=== PATIENT | female | born 1965 | race Caucasian/White ===

== ENCOUNTER → 2018-09-05 10:23 | Outpatient (CLI) | payer MEDICARE, SELFPAY ==
[2014-11-22 20:18] VITALS: BMI 23.4
[2018-09-05 11:14] LABS: Amphetamine Urine VISTA NEGATIVE (<1000 ng/mL); Barbiturate Urine VISTA NEGATIVE (< 200 ng/mL); Benzodiazepine Urine VISTA NEGATIVE (< 200 ng/mL); Cocaine Urine VISTA NEGATIVE (< 300 ng/mL); Ecstacy Urine VISTA NEGATIVE (< 500 ng/mL); Methadone Urine VISTA NEGATIVE (< 300 ng/mL); PCP Urine VISTA NEGATIVE (< 25 ng/mL); THC Urine VISTA NEGATIVE (< 50 ng/mL); Vista UDS pH Range 5
== END ==
PROVIDERS: Family Provider Nurse Practitioner Family; PCP Nurse Practitioner Family; Referring Provider Anesthesiology Pain Medicine; Visit Provider Anesthesiology Pain Medicine
DX: F11.20 Opioid dependence, uncomplicated (principal)
CPT/HCPCS: 80307

== ENCOUNTER → 2018-10-04 12:54 | Outpatient (CLI) | payer MEDICARE, SELFPAY ==
--- NOTE | 2018-10-04 13:05 | RAD_ITS ---
STUDY: X-RAY - CERVICAL SPINE REASON FOR EXAM: Female, 53 years old. Neck pain. TECHNIQUE: 2 view(s) of the cervical spine were obtained. COMPARISON: None FINDINGS: Normal anterior atlantoaxial articulation. Normal odontoid process. There is straightening of the normal cervical lordosis. There is mild endplate spondylosis at the level of C5-C6. Normal disc space heights. Normal visualized intervertebral neuroforamina. The soft tissue structures are unremarkable. RAD/Cerv Spine 2 or 3 Views IMPRESSION: Mild degenerative changes. Electronically Signed: Jaeln Mota MD at 9:24 EDT Tel , Service support ,
== END ==
LOC: RAD 12:56
PROVIDERS: Family Provider Nurse Practitioner Family; PCP Nurse Practitioner Family; Referring Provider Anesthesiology Pain Medicine; Visit Provider Anesthesiology Pain Medicine
DX: M54.2 Cervicalgia (principal)
CPT/HCPCS: 72040

== ENCOUNTER 2021-02-04 07:01 | Inpatient (IN) | payer MEDICARE, SELFPAY ==
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
[2021-01-26 14:36] LABS: Magnesium 1.9 mg/dL (1.6-2.6); Thyroid Stim Hormone (TSH) 0.75 uIU/mL (0.358-3.74)
[2021-02-04] VITALS (16 sets, daily range): BP systolic 83–113; BP diastolic 43–62; PULSE 54–80; RESP 15–18; TEMP 36.1–36.9; O2SAT 91–100; BMI 19.5
--- NOTE | 2021-02-04 | KNEE_PTH ---
PATIENT: TENNILLE SULLIVAN LOC: MS3 U#:[id number] AGE/SX: 56/F ROOM: [facility] [place] RE02/05/[address]: Dr. Kyle Barnes MD : 1965 BED: 1 DIS: 02/06/2021 SPEC #: [id number] RECD: 02/04/21 14:19 STATUS: HEVER RESukumar #: [id number] HAKAN: 02/04/21 00:[address]: Kyle Barnes DEPT: SURGICAL PATHOLOGY RECD BY: Atul Perez ENTERED: 02/05/21 08:15 SP TYPE: TOTAL KNEE OTHR DR: MD Dr. Chele Diana MD Kathy Seitz, LENS POLISHER-C Tissues: Knee, NOS Procedures: Decalcification bone/plaque Surgery Specimen Level IV HEADER OPERATION: ERAS, left knee replacement robotic arm assist PRE-OP DIAGNOSIS: Right knee osteoarthritis TISSUE SUBMITTED: Bone and tissue right knee MICROSCOPIC DIAGNOSIS Bone and tissue, right knee, total knee replacement/resection: Pieces of bone with degenerative osteoarthritic changes. DEISI:cecil 02/11/2021 MICROSCOPIC DESCRIPTION Slides are reviewed. GROSS DESCRIPTION Received is one container designated bone and soft tissue right knee. The specimen consists of multiple fragments of chavez-yellow bone measuring in aggregate 10 x 9 x 4 cm. No soft tissue is identified. A number of bony fragments contain articular surfaces consistent with tibial plateau and femoral condyle and displaying prominent osteophyte formation, eburnation and bone erosion. Tool Dispatcher sections are submitted in two cassettes after decalcification. / DEISI:cecil 02/05/21 TC:5 CPT: 66684, 43281
[2021-02-04] MEDS: Lactated Ringers 1,000 ML 999 ML IV ×2 (06:50→11:30)
--- NOTE | 2021-02-04 07:10 | OP.PCM_ITS ---
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 Eric size 3 triathlon total stabilized femoral component, right with 12 x 50 mm stem 2. Eric size 3 universal tibial baseplate with 12 x 50 mm stem 3. [place] X3 9 mm PS polyethylene 4. Eric X3 29 mm asymmetric patella Brief history operative indications: 56-year-old F with history of right knee osteoarthritis with radiographic find ings with loss of joint space as well as concurrent CT and MRI findings consistent with avascular necrosis of the distal femur, osteophyte formation and subchondral sclerosis. Failed conservative measures as mentioned in the H&P. Discussion of total knee arthroplasty as well as risk and benefits were discussed the patient including but not limited to blood loss, DVTs, PEs, neurovascular damage, general risk of anesthesia including loss of life, and stiffness or instability were discussed with patient. Patient demonstrated understanding and was able to sign informed consent. Procedure: On the date of procedure patient's right lower extremity was marked in the preoperative area. The patient was then taken back to the operating room where the patient was placed on the table in the supine position. All bony prominences were identified a well-padded. Anesthesia assumed control of the C-spine and airway and remained controlled throughout the remainder of the procedure. A tourniquet was placed on the right upper thigh and the leg was prepped in a sterile fashion. The surgeon then scrubbed at this time .Upon reentering the room right lower extremity was draped in a standard orthopedic fashion. A timeout was then called and everyone agreed upon the side, the site, the procedure to be performed, patient's identity and antibiotics given. Esmarch bandage was used to exsanguinate the extremity and the tourniquet was placed up to 250 mmHg with the knee in flexion. A midline skin incision was made and sharp dissection was taken down through skin subcutaneous tissue and fat. The standard medial parapatellar incision was made and the patella was subluxed laterally. An Appropriate deep MCL release was done and the fat pad was resected. Our attention was then directed to the patella. The patella was everted and a flat resection was made. The knee was then flexed up in 2 femoral pins were placed inside the incision and 2 tibial pins were placed outside the incision in the medial tibia bicortically. Once this was completed the 2 checkpoints in the femur and tibia were placed. Knee was then flexed up and the bony landmarks were registered. Once this was completed knee was taken through range of motion and manually stressed allowing us to a plan for an appropriate tibial cut. The robotic arm was brought into the field sterilely and checkpoint and saw were registered. Ba sed on the patient's deformity the tibial cut was made neutral to the tibial axis. At this time the tensioner was then placed in the joint and ligament tension was checked at 90 degrees and full extension. Based on the patient's ligamentous tension appropriate adjustments were made to the operative plan and ligament releases were done. Once we were happy with our operative plan with balanced flexion and extension gaps our attention was directed to the femur. The robot was brought into the field sterilely and registered. Posterior condylar cuts, anterior chamfer cuts and anterior cuts were appropriately made for a size 3 femur. When these were completed the saws were switched out in the distal femoral and posterior chamfer cuts were made. Protecting the soft tissue throughout this time. A size 3 tibial base plate was selected. the knee was flexed to 90 degrees and the soft tissues and posterior osteophytes were removed from the joint. 40 cc of the periarticular injection was injected into the posterior medial corner of the joint. The appropriate trials were then placed on the femur and tibia. A trial polyethylene was trialed to ensure proper balancing and stability of the knee. The appropriate tibial internal rotation was then marked with a bovie. Our attention was then directed to the patella. The lug holes were drilled and the patella trial was placed. Patellar tracking was checked and deemed appropriate. At this time once we are happy with the stability of the knee. Based on the patient's avascular process and concerning bone quality we elected to pair the bone for stem the femoral and tibial implants. Once we were happy lug holes were drilled for the femur and trial components were removed. the tibia was subluxed and pinned into place and the keel was punched and drilled appropriately for the stem. We then made the box cut for the femur and deepened it for the TS femur and then drilled for the stem. Cement restrictors were placed.. Final components were verified and opened, and cement was mixed in a vacuum. Viraliti Simplex cement was used. The wound was copiously irrigated with normal saline. When the cement was ready the components were cemented into place starting with the tibia, femur and finally cementing the patella. The trial poly component was placed and the knee was placed in full extension. All excess cement was removed in the process. Once the cement had cured the tracking, alignment and balance were verified and a size 9 mm PS polyethylene component was placed. Once the final components were placed a 3-minute dilute Betadine lavage was performed followed by an Irrisept lavage was performed and the wound was copiously irrigated with normal saline solution and the periarticular injection was given. The wound was closed in a layer galarza fashion using #1 vicryl interrupted sutures for the arthrotomy, 2-0 interrupted Vicryl suture for the subcuticular layer and samara for final skin closure. A sterile compressive dressing was then placed. The patient was then awakened from anesthesia, transferred to the [facility] and transferred to the PACU for recovery. Post op plan DVT ppx: Xarelto 10 mg daily for DVT prophylaxis secondary to aspirin allergy, thigh high compression stockings Follow up: in office in 2 weeks for wound check PT: to start POD #0 at hospital, outpatient PT should be arranged. My physician offset press assistant was a vital part of this case. He was important in appropriate retraction during the case, and protection of soft tissues during bony cuts. His intimate knowledge of the case and my steps aided in safe and expedient completion of the procedure as well as appropriate position of the leg during the case. He was also vital in assisting with closure under my direct supervision. Due to the complexity of this case robotic arm was used to assist in the surgery to improve accuracy and clinical outcomes. Complications No intraoperative complications Admit VTE Documentation VTE Present on Admission: No VTE Mechan Device Prophylaxis: SCD's and Thigh High ANNA Hose VTE Pharm Prophylaxis ordered?: Yes
[2021-02-04] MEDS: Gabapentin 600 MG Tablet PO (07:16)
[2021-02-04] MEDS: Acetaminophen 500 MG Tablet 1000 MG PO ×3 (07:19→21:26)
[2021-02-04] MEDS: Lactated Ringers 1,000 ML 75 ML IV (08:36)
[2021-02-04] MEDS: Cefazolin 2 GM in 0.9% Normal Saline 100 ML IV (08:57)
[2021-02-04 10:15] LABS: Bedside Glucose 103 mg/dL (70-110)
--- NOTE | 2021-02-04 11:10 | RAD_ITS ---
STUDY: X-RAY - RIGHT KNEE REASON FOR EXAM: Postoperative evaluation of right total knee arthroplasty. TECHNIQUE: 2 view(s) of the knee. COMPARISON: Radiographs 05/28/2015. FINDINGS: There is a right total knee arthroplasty without evidence of complication. There is postoperative gas in the soft tissues and overlying skin samara. RAD/Knee 1 or 2 Views IMPRESSION: Uncomplicated right total knee arthroplasty. Electronically Signed: Ross Parsons MD at 11:50 EDT Tel , Service support ,
[2021-02-04] MEDS: Lactated Ringers 1,000 ML 125 ML IV ×2 (12:24→13:19)
[2021-02-04] MEDS: Gabapentin 100 MG Capsule PO ×2 (13:20→21:26)
--- NOTE | 2021-02-04 14:03 | PN.HOSP_ITS ---
Subjective Subjective 56-year-old female presents to the hospital for an elective right total knee replacement secondary to osteoarthritis. No recent changes to her health, no changes were made case and Objective Data Objective Data Vital Signs: Vital Signs Temp Pulse Resp BP Pulse Ox 97.0 F L 73 18 109/55 L 95 02/04/21 13:00 02/04/21 13:00 02/04/21 13:00 02/04/21 13:00 02/04/21 13:00 Oxygen Flow Rate (L/min) 6 Oxygen Delivery Method Room Air Weight: 110 lb 3.698 oz Body Mass Index (BMI) 19.5 Intake & Output: Intake and Output for Last 24 Hours 02/03/21 02/04/21 02/05/21 03:59 03:59 03:59 Intake Total 3447.58 / 3447.58 Balance 3447.58 / 3447.58 Lab / Micro Data Labs: Laboratory Results - last 24 hr 02/04/21 06:41: POC Glucose 103 Micro: Microbiology 02/03/21 11:00 Interface Orders SARS-CoV-2 Antigen (Rapid) - Final 01/26/21 13:40 Swab (Method) Nasal Screen MRSA/MSSA - Final Radiography Diagnostic Testing: Radiology Impression Knee X-Ray 02/04/21 11:10 IMPRESSION: Uncomplicated right total knee arthroplasty. Electronically Signed: Ross Parsons MD at 11:50 EDT Tel , Service support , Physical Exam Const alert, oriented x3 and no apparent distress General Appearance: cooperative HEENT normocephalic and moist oral mucous membranes Eyes PERRL, EOMs intact bilaterally and conjunctivae normal Neck supple and no JVD Resp normal respiratory effort, normal air movement, no retractions and no use of accessory muscles Auscultation: crackles bilateral (Chronic); Negative for rales, rhonchi or wheez es Cardio regular rate, regular rhythm, S1 normal heart sound, S2 normal heart sound and no murmurs GI soft to palpation, non-tender and non-distended; Negative for hepatosplenomegaly Extremity no clubbing, cyanosis or edema Skin no rashes or lesions noted Skin Narrative: Dressing is intact Neuro no focal motor deficits and no sensory deficits noted Psych affect normal Appearance: appropriate Assessment & Plan Assessment/Plan (1) Status post total right knee replacement: PLAN: 1. Status post right total knee replacement 02/04/2021 -Pain management per primary -PT/OT -Xarelto 10 mg daily for DVT prophylaxis per primary 2. HTN/HLD -Blood pressure stable -Continue with her home blood pressure medication -Continue with statin 3. Hypothyroidism -Stable -Continue with Synthroid 4. Chronic pain with polymyositis and scleroderma/anxiety/depression/restless leg syndrome -Continue with her prednisone as well as her pain medication -Continue with gabapentin and baclofen -Continue with Zoloft and trazodone DVT: Xarelto Charges/Coding Visit Charges OBSV E&M: 91752 Subsequent observation care L2
--- NOTE | 2021-02-04 15:49 | CASEMGMT ---
LW/POA not on file, as per nursing assessment, pt does not have LW/POA and declined any additional information. WHIT Marks
[2021-02-04] MEDS: Cefazolin 1 GM/50 ML BAG IV (17:14)
[2021-02-04] MEDS: Senna/Docusate Sodium 1 Tablet 2 TABLET PO (21:26)
[2021-02-04] MEDS: Sertraline 50 MG Tablet PO (21:26)
[2021-02-04] MEDS: Pramipexole Di-HCl 0.25 MG Tablet PO (21:26)
[2021-02-04] MEDS: Baclofen 10 MG Tablet PO (21:30)
[2021-02-05] VITALS (12 sets, daily range): BP systolic 89–114; BP diastolic 42–74; PULSE 66–96; RESP 15–22; TEMP 36.4–37.1; O2SAT 86–100
[2021-02-05] MEDS: Cefazolin 1 GM/50 ML BAG IV (01:02)
[2021-02-05] MEDS: Levothyroxine 100 MCG Tablet PO (05:30)
[2021-02-05] MEDS: Gabapentin 100 MG Capsule PO ×3 (05:30→21:27)
[2021-02-05] MEDS: Rivaroxaban 10 MG Tablet PO (05:31)
[2021-02-05] MEDS: Acetaminophen 500 MG Tablet 1000 MG PO ×3 (05:31→21:28)
[2021-02-05 06:53] LABS: Anion Gap 1 (5-15); BUN 12 mg/dL (7-18); BUN/Creat Ratio 52.6 RATIO (10-20); Calcium,Total 8.3 mg/dL (8.5-10.1); Chloride 103 mmol/L (98-107); Creatinine, Serum 0.23 mg/dL (0.55-1.02); EST Glomerular Filtration Rate 334 mL/min (>60); Est Glom Filt Rate - Afr Amer 405 mL/min (>60); Estimated Creatinine Clearance 213.01 ml/min; Glucose 117 mg/dL (74-106); Potassium 4.3 mmol/L (3.5-5.1); Sodium Level 139 mmol/L (136-145)
[2021-02-05 06:55] LABS: Hematocrit 27.1 % (37-47); Hemoglobin 7.9 g/dL (12.0-15.0); Mean Corp Hgb Conc 29.2 g/dL (32-36); Mean Corpuscular Volume 99.6 fL (81-99); Mean Platelet Vol. 10.9 fl (6.2-12.0); Platelet Count 179 K/mm3 (150-450); RBC Distribution Width CV 14.6 % (11.6-14.6); RBC Distribution Width SD 54.3 fl (35.1-43.9); Red Blood Count 2.72 M/mm3 (4.2-5.4); White Blood Count 5.3 K/mm3 (4.4-11.0)
[2021-02-05] MEDS: Albuterol 2.5 MG/3 ML VIAL.NEB. INHALATION ×3 (07:05→19:05)
[2021-02-05] MEDS: Budesonide Respules 0.5 MG/2 ML AMPUL.NEB. INHALATION ×2 (07:05→19:05)
[2021-02-05] MEDS: Ketorolac 15 MG/ML Vial IV ×2 (07:45→15:38)
[2021-02-05] MEDS: Ondansetron 4 MG/2 ML Vial IV (07:45)
[2021-02-05] MEDS: proMETHazine 25 MG/ML Syringe 12.5 MG IM (08:48)
--- NOTE | 2021-02-05 10:58 | PCM.PN.ORT ---
Subjective Subjective The patient was sitting in bed upon examination. Patient denies any chest pain, shortness of breath, dizziness, or calf pain. Pain is controlled on medications. No adverse overnight events. Patient was having significant amount of nausea/vomiting in which she did require Phenergan. Patient also has had some lightheadedness when she is up walking. Patient does require bilateral platform walker due to her upper extremity deformities. Patient has had some decrease hemoglobin which is currently at 7.9. Patient also had drainage over the distal pin site which the dressing had to be removed with a new dressing and compression. Objective Data Objective Data Vital Signs: Vital Signs Temp Pulse Resp BP Pulse Ox 97.5 F L 78 18 89/43 L 92 02/05/21 09:26 02/05/21 09:26 02/05/21 09:02/05/21 09:02/05/21 07:05 Oxygen Flow Rate (L/min) 1.5 Oxygen Delivery Method Room Air Weight: 50 kg Body Mass Index (BMI) 19.5 Intake & Output: Intake and Output for Last 24 Hours 02/03/21 02/04/21 02/05/21 23:59 23:59 23:59 Intake Total 4897.58 / 4897.58 710 / 710 Balance 4897.58 / 4897.58 710 / 710 Lab / Micro Data Result Diagrams: 02/05/21 06:14 02/05/21 06:14 Labs: Laboratory Results - last 24 hr 02/05/21 06:14: WBC 5.3, RBC 2.72 L, Hgb 7.9 L, Hct 27.1 L, MCV 99.6 H, MCH 29.0, MCHC 29.2 L, RDW Std Deviation 54.3 H, RDW Coeff of Himanshu 14.6, Plt Count 179, MPV 10.9 02/05/21 06:14: Sodium 139, Potassium 4.3, Chloride 103, Carbon Dioxide 35.0 H, Anion Gap 1 L, BUN 12, Creatinine 0.23 L, Estim Creat Clear Calc 213.01, Est GFR (MDRD) Af Amer 405, Est GFR (MDRD) Non-Af 334, BUN/Creatinine Ratio 52.6 H, Glucose 117 H, Calcium 8.3 L Micro: Microbiology 02/03/21 11:00 Interface Orders SARS-CoV-2 Antigen (Rapid) - Final 01/26/21 13:40 Swab (Method) Nasal Screen MRSA/MSSA - Final Radiography Diagnostic Testing: Radiology Impression Knee X-Ray 02/04/21 11:10 IMPRESSION: Uncomplicated right total knee arthroplasty. Electronically Signed: Ross Parsons MD at 11:50 EDT Tel , Service support , Physical Exam Narrative Vital signs stable and afebrile. Patient is able to plantarflex and dorsiflex actively. Sensation is intact to light touch to saphenous, sural, superficial and deep peroneal, and tibial distribution. Proximal pin site dressing and main dressing dressing is clean dry and intact. The distal pin site dressing had to be removed due to drainage. New dressing with ABD and compression will currently be used. Negative Homans bilaterally, negative signs and symptoms of DVT. Const alert, oriented x3 and no apparent distress Assessment & Plan Assessment/Plan (1) Status post total right knee replacement: PLAN: 1. S/P right total knee arthroplasty POD #1 2. Continue Pain Medications: Tylenol and oxycodone. She is followed by pain management outpatient only but we will manage pain for the first 6 weeks postoperatively. 3. DVT Prophylaxis: Patient is on Xarelto as she has an aspirin allergy. 4. PT/OT: Weightbearing as tolerated but does require bilateral platform walker which her upper extremities have been significantly affected by her underlying scleroderma. 5. H & H: 7.9/27.1, asymptomatic. Postoperative anemia secondary to acute blood loss from surgery without any intra operative complications. 6. Postoperative nausea/vomiting: Patient did not respond well to Zofran and IV Phenergan was utilized. We will continue to monitor. 7. Postoperative right knee drainage: Currently recommend compression and ABD. We will continue to monitor this over the next day. Plan to replace dressing with a OpSite once drainage has been controlled. 8. Encouraged Incentive Spirometry 7. Continue postoperative medical management per medicine 9. Disposition: Due to patient's current significant nausea/vomiting as well as her low hemoglobin and lightheadedness, we will continue to monitor her over the next day. Patient does require bilateral platform walker due to her scleroderma and upper extremities. We will repeat hemoglobin later this afternoon. We will also continue to monitor the drainage over the distal pin site incision. As patient was anticipated to be observation and only 1 night stay, due to her above complications we will require additional stay. Plan will be for possible discharge home tomorrow as long as patient is doing well and is medically stable. Case was discussed with case management/social research assistant.
--- NOTE | 2021-02-05 12:00 | CASEMGMT ---
RN ALFRED Face to Face with patient for initial transition planning/care coordination assessment. RN CM introduced self and role at [facility]. Patient lying in bed, alert and oriented. Patient willing to participate in assessment and is able to answer all questions appropriately. Care providers, pharmacy, and demographics verified. Patient wishes to discharge home, and would like [facility] for home therapy. Patient states she has no further needs or concerns at this time. CM to follow for discharge planning needs that may arise. PCP: Iris Henderson NP Specialists: Milton [employer] Operator Preferred Pharmacy: [facility] retail at discharge Insurance:[facility] Prescription Benefit: yes Living Will/HPOA: yes, daughter Elaine Ortiz LNOK: daughter Living Arrangements: patient lives alone with 10yo grandson, who is staying with daughter, in a duplex. Patient states her bed and bath are on second floor and she is normally able to ambulate stairs. Transportation: sister DME/HHC: Patient states she has BSC, raised toilet, lift chair, grab bars, and walker. Patient states she has previously been to [facility] and has had their HHC in the past. Patient wishes to discharge with [facility] and then transition to oupatient therapy. Disposition Plan: Patient to discharge home with HHC, family support, and follow-up plans in place. Michelle MOODY, RN, CM
--- NOTE | 2021-02-05 12:06 | CHAPLAIN ---
Type of Pastoral Visit _x__ Initial Visit ___ Follow-up Visit ___ On-call Visit ___ General Patient Visit ___ Spiritual Assessment ___ Family Conference ___ Bereavement ___ Rapid Response ___ Code Blue ___ Other (describe below) Pastoral Care Referral From _x__ Patient ___ Family ___ Nurse ___ Physician ___ Veterinary Medicine Doctor ___ Internet Site Designer ___ Other (describe below) Sacrament/Intervention _x__ Active listening ___ Anointing ___ Amish ___ Bereavement ___ Communion ___ Emily exploration ___ ___ Life review _x__ Prayer ___ Reconciliation ___ Sacrament of Sick ___ Supportive presence ___ Wedding ___ Other (describe below) Pastoral Comments
[2021-02-05] MEDS: predniSONE 1 MG Tablet 4 MG PO (13:31)
[2021-02-05] MEDS: Famotidine 20 MG Tablet PO (13:31)
--- NOTE | 2021-02-05 13:45 | PCM.PN.HOSP ---
Subjective Subjective Has some nausea and dry heaving. We will transition her medications and try her on some Phenergan this morning Objective Data Objective Data Vital Signs: Vital Signs Temp Pulse Resp BP Pulse Ox 97.5 F L 78 18 89/43 L 92 02/05/21 09:26 02/05/21 09:26 02/05/21 09:26 02/05/21 09:26 02/05/21 07:05 Oxygen Flow Rate (L/min) 1.5 Oxygen Delivery Method Room Air Weight: 110 lb 3.698 oz Body Mass Index (BMI) 19.5 Intake & Output: Intake and Output for Last 24 Hours 02/04/21 02/05/21 02/06/21 03:59 03:59 03:59 Intake Total 4947.58 / 4947.58 760 / 760 Balance 4947.58 / 4947.58 760 / 760 Lab / Micro Data Result Diagrams: 02/05/21 06:14 02/05/21 06:14 Labs: Laboratory Results - last 24 hr 02/05/21 06:14: WBC 5.3, RBC 2.72 L, Hgb 7.9 L, Hct 27.1 L, MCV 99.6 H, MCH 29.0, MCHC 29.2 L, RDW Std Deviation 54.3 H, RDW Coeff of Himanshu 14.6, Plt Count 179, MPV 10.9 02/05/21 06:14: Sodium 139, Potassium 4.3, Chloride 103, Carbon Dioxide 35.0 H, Anion Gap 1 L, BUN 12, Creatinine 0.23 L, Estim Creat Clear Calc 213.01, Est GFR (MDRD) Af Amer 405, Est GFR (MDRD) Non-Af 334, BUN/Creatinine Ratio 52.6 H, Glucose 117 H, Calcium 8.3 L Micro: Microbiology 02/03/21 11:00 Interface Orders SARS-CoV-2 Antigen (Rapid) - Final 01/26/21 13:40 Swab (Method) Nasal Screen MRSA/MSSA - Final Physical Exam Const alert, oriented x3 and no apparent distress General Appearance: cooperative HEENT normocephalic and moist oral mucous membranes Eyes PERRL, EOMs intact bilaterally and conjunctivae normal Neck supple and no JVD Resp normal respiratory effort, normal air movement, no retractions and no use of accessory muscles Auscultation: crackles bilateral (Chronic); Negative for rales, rhonchi or wheezes Cardio regular rate, regular rhythm, S1 normal heart sound, S2 normal heart sound and no murmurs GI soft to palpation, non-tender and non-distended; Negative for hepatosplenomegaly Extremity no clubbing, cyanosis or edema Skin no rashes or lesions noted Skin Narrative: Dressing is intact Neuro no focal motor deficits and no sensory deficits noted Psych affect normal Appearance: appropriate Assessment & Plan Assessment/Plan (1) Status post total right knee replacement: PLAN: 1. Status post right total knee replacement 02/04/2021/postoperative anemia -Pain management per primary -PT/OT -Xarelto 10 mg daily for DVT prophylaxis per primary -Unsure as to what her baseline is her last hemoglobin here in the hospital was in 2014. Currently at 7.9, will recheck and monitor however given her nausea as well as her anemia will likely stay for 1 more day. Recheck hemoglobin this afternoon 2. HTN/HLD -Blood pressure stable, she does appear to be low at baseline -Continue with statin 3. Hypothyroidism -Stable -Continue with Synthroid 4. Chronic pain with polymyositis and scleroderma/anxiety/depression/restless leg syndrome -Continue with her prednisone as well as her pain medication -Continue with gabapentin and baclofen -Continue with Zoloft and trazodone DVT: Xarelto Charges/Coding Visit Charges Inpatient E&M: 71991 Subs Hosp L2
--- NOTE | 2021-02-05 14:05 | CASEMGMT ---
Addendum entered by Hayden Bocanegra 02/05/21 14:31: Call received back from Cheryl @ [facility]. She is aware anticipate pt ready for discharge tomorrow. They are able to accept pt. Pt/dtr, Elaine, who is at bedside, both made aware. Original Note: JAYLA SIMON NOTE: JAYLA SIMON informed pt would like [facility] and is interested in [facility] through [facility], if they provide that service. JAYLA SIMON to room to talk w/pt. The pt states she is planning on staying w/her daughter, who lives in [place], for the next couple of weeks and would like to go with [facility] more local. Pt was provided with list of [facility] providers including quality and resource use data and consistent with the patient's preferred geographic region, medical needs, and insurance network. Pt's preferred provider is [facility]. Pt states does not feel that she needs SN or aide, just therapy. Order placed. Call placed to [facility] and VM left w/Cheryl re: referral. Awaiting return call. Melany MOODY RN, CM
--- NOTE | 2021-02-05 15:00 | NURSING ---
This RN reviewed SN charting
[2021-02-05 15:16] LABS: Hemoglobin 8.1 g/dL (12.0-15.0)
[2021-02-05] MEDS: proCHLORPERazine 10 MG/2 ML Vial IV (15:38)
[2021-02-05] MEDS: Pramipexole Di-HCl 0.25 MG Tablet PO (16:38)
--- NOTE | 2021-02-05 19:20 | CPS ---
added O2 via nasal cannula at 2 lpm
[2021-02-05] MEDS: Sertraline 50 MG Tablet PO (21:27)
[2021-02-06] MEDS: Gabapentin 100 MG Capsule PO (05:11)
[2021-02-06] MEDS: Acetaminophen 500 MG Tablet 1000 MG PO (05:11)
[2021-02-06] MEDS: Rivaroxaban 10 MG Tablet PO (05:11)
[2021-02-06] MEDS: Levothyroxine 100 MCG Tablet PO (05:11)
[2021-02-06 05:16] VITALS: BP 108/60; PULSE 85; RESP 16; TEMP 36.1; O2SAT 96
[2021-02-06 06:10] LABS: Hematocrit 28.4 % (37-47); Hemoglobin 8.2 g/dL (12.0-15.0); Mean Corp Hgb Conc 28.9 g/dL (32-36); Mean Corpuscular Hgb 28.8 pg (27.0-32.0); Mean Corpuscular Volume 99.6 fL (81-99); Platelet Count 165 K/mm3 (150-450); RBC Distribution Width CV 14.4 % (11.6-14.6); RBC Distribution Width SD 52.7 fl (35.1-43.9); Red Blood Count 2.85 M/mm3 (4.2-5.4); White Blood Count 4.8 K/mm3 (4.4-11.0)
[2021-02-06] MEDS: Albuterol 2.5 MG/3 ML VIAL.NEB. INHALATION (06:50)
[2021-02-06 06:51] VITALS: PULSE 67; RESP 18; O2SAT 70
[2021-02-06] MEDS: Budesonide Respules 0.5 MG/2 ML AMPUL.NEB. INHALATION (06:51)
[2021-02-06 06:55] VITALS: O2SAT 99
--- NOTE | 2021-02-06 07:09 | PN.ORTHO_ITS ---
Subjective Subjective The patient was sitting in bed upon examination. Patient denies any chest pain, shortness of breath, dizziness, lightheadedness, nausea or vomiting, or calf pain. Pain is controlled on medications. No adverse overnight events. Patient is feeling significantly better today. She is not having the nausea or vomit ing. The lightheadedness is gone. Patient overall is doing well. She already has platform walker for bilateral upper extremity. She is working with physical therapy. Case management is involved and will be set up with home health care. Objective Data Objective Data Vital Signs: Vital Signs Temp Pulse Resp BP Pulse Ox 97 F L 85 16 108/60 96 02/06/21 05:16 02/06/21 05:16 02/06/21 05:16 02/06/21 05:16 02/06/21 05:16 Oxygen Flow Rate (L/min) 2 Oxygen Delivery Method Room Air Weight: 50 kg Body Mass Index (BMI) 19.5 Intake & Output: Intake and Output for Last 24 Hours 02/04/21 02/05/21 02/06/21 23:59 23:59 23:59 Intake Total 4897.58 / 4897.58 910 / 910 Balance 4897.58 / 4897.58 910 / 910 Medical Nutrition Assessment Dietitian: Nutrition Therapy Diagnosis Start: 02/05/21 12:30 Freq: Status: Active Protocol: Document 02/05/21 16:06 RMA (Rec: 02/05/21 16:06 RMA [id number]) Nutrition Malnutrition Evidence of Malnutrition Exists No Intake Problem Inadequate Oral Intake Etiology related to altered GI function , N/V and poor appetite Signs/Symptoms as evidenced by refusing ONS and meals at this time. Status Active Problem Recommendation Dietitian Recommendations/Changes Continue regular diet and ensure w/ medpass as tolerated . Additional ONS as appetite improves and N/V subside. Lab / Micro Data Result Diagrams: 02/06/21 05:29 02/05/21 06:14 Labs: Laboratory Results - last 24 hr 02/05/21 15:09: Hgb 8.1 L 02/06/21 05:29: WBC 4.8, RBC 2.85 L, Hgb 8.2 L, Hct 28.4 L, MCV 99.6 H, MCH 28.8, MCHC 28.9 L, RDW Std Deviation 52.7 H, RDW Coeff of Himanshu 14.4, Plt Count 165, MPV 11.0 Micro: Microbiology 02/03/21 11:00 Interface Orders SARS-CoV-2 Antigen (Rapid) - Final 01/26/21 13:40 Swab (Method) Nasal Screen MRSA/MSSA - Final Physical Exam Narrative Vital signs stable and afebrile. Patient is able to plantarflex and dorsiflex actively. Sensation is intact to light touch to saphenous, sural, superficial and deep peroneal, and tibial distribution. Dressing is clean dry and intact. Negative Homans bilaterally, negative signs and symptoms of DVT. Const alert, oriented x3 and no apparent distress Assessment & Plan Assessment/Plan (1) Status post total right knee replacement: PLAN: 1. S/P right total knee arthroplasty POD #2 2. Continue Pain Medications: Tylenol and oxycodone. She is followed by pain management outpatient only but we will manage pain for the first 6 weeks postoperatively. 3. DVT Prophylaxis: Patient is on Xarelto as she has an aspirin allergy. 4. PT/OT: Weightbearing as tolerated but does require bilateral platform walker which her upper extremities have been significantly affected by her underlying scleroderma. 5. H & H: 8.2/28.4, asymptomatic. Postoperative anemia secondary to acute blood loss from surgery without any intra operative complications. 6. Postoperative nausea/vomiting: Resolved 7. Postoperative right knee drainage: Patient does have some discharge from the distal pin site incision. Continue with compression. 8. Encouraged Incentive Spirometry 7. Continue postoperative medical management per medicine 9. Disposition: Case management has been involved and patient will get home health physical therapy for the next 2 weeks. She will be residing with her daughter. Prescriptions will be E scribed to [facility]. Patient will continue with the Xarelto for 2 weeks postoperatively as she has an aspirin allergy. I have reviewed the [place] Automated Rx Reporting System (OARRS) report for this patient for refill pattern and other prescriber involvement as part of the appro priate surveillance for the provision of acute and chronic controlled medications. The report was requested and reviewed on the date of this entry and was considered in the prescribing process.
--- NOTE | 2021-02-06 07:18 | DCINST_ITS ---
Discharge Instructions Diet Discharge Diet: No restrictions Activity Discharge Activity: May Not Drive (while taking narcotic pain medications.) May shower in (days): 1 (Please turn dressing away from water. Okay to get wet as long as dressing is intact to skin.) Ice area for (Minutes): 20 (Every 1-2 hours while awake[address] place barrier between the skin and ice pack.) Weight Bearing Status: Weight bearing as tolerated Keep extremity elevated above heart level: Operative Extremity Dressing / Incision Call your doctor if your incision/area has: Continuous Slow Oozing, Sudden Increased Bleeding, Increased Pain/ Swelling, Increased Redness and Foul Smelling Discharge Call your doctor if you observe: Fever of 101 or Higher, Coldness, Increased Pain, Numbness or Tingling, Change in Color, Shortness of breath, Chest pain, Calf discomfort and Uncontrolled pain Remove Dressing in: 3 days (Okay to remove dressings on 02/09/2021) Additional Dressing/Incision Instructions:: Follow [facility] Post-op Instructions. Once postoperative dressing has been removed only use gentle soap and water over the incision. Do not use any ointments, Neosporin, salves, alcohol pads over the incision for 6 weeks postoperatively. Do not submerge underwater for 6 weeks postoperatively. Continue with ANNA hose/elastic stockings for 2 weeks postoperatively. May remove at nighttime but needs to be placed back on the leg during the day. Do NOT use alcohol with narcotic pain medication. Do NOT make important decisions while taking narcotic medication. If you have problems with taking your medication (rash, itching, nausea, etc.) call the office at once. Follow Up Care Test Results: Test results from this visit will be discussed in further detail at your follow-up appointment, if applicable. Discharge Plan Admission Admit Date/Time: 02/05/21 09:38 Attending Provider: Kyle Barnes Primary Care Provider: Iris Henderson NP Consulting Providers: Randy Underwood ; Chele Quesada Instructions Additional Instructions / Restrictions: Patient is aware that she is not to take the Percocet that she has at home and only utilize our pain medications as instructed. Discharge Orders/Prescriptions Prescriptions: New acetaminophen 500 mg Tablet 1,000 mg PO TID Qty: 100 RF: 0 oxycodone 5 mg Tablet 5 - 10 mg PO Q4H PRN PRN (Reason: Pain Score 4-10) 4 Days Qty: 36 RF: 0 Xarelto 10 mg Tablet 10 mg PO DAILY@0600 Qty: 12 RF: 0 sennosides-docusate sodium [Stool Softener-Stimulant Laxat] 8.6-50 mg Tablet 2 tab PO BID Qty: 10 RF: 0 Continued albuterol sulfate 2.5 MG/3 ML solution for nebulization 2.5 mg inhalation Q6HWA.RT RF: 0 prednisone 5 MG tablet 4 mg PO DAILY RF: 0 albuterol sulfate [Ventolin HFA] 1 INHALER inhaler 1 - 2 puff inhalation Q6H PRN PRN (Reason: Shortness Of Breath) RF: 0 Centrum Silver 1 EACH tablet 1 ea PO DAILY RF: 0 Ropinirole Hcl [Requip] 1 MG tablet 0.5 mg PO QHS RF: 0 trazodone 50 mg Tablet 50 mg PO QHS PRN (Reason: depression) RF: 0 atorvastatin 10 mg Tablet 10 mg PO DAILY RF: 0 meloxicam 15 mg tablet 15 mg PO DAILY RF: 0 levothyroxine 100 mcg Tablet 100 mcg PO DAILY RF: 0 baclofen 10 mg tablet 10 mg PO TID PRN PRN (Reason: neck pain) RF: 0 sertraline [Zoloft] 50 mg Tablet 50 mg PO BID RF: 0 Mucinex Sinus-Max Cng-Pain(DM) 5-10-325 mg Capsule 1 cap PO DAILY RF: 0 cholecalciferol (vitamin D3) 100 mcg (4,000 unit) Capsule 100 mcg PO QODAY RF: 0 Arthrozene 1 cap PO/SL DAILY RF: 0 gabapentin 100 mg Tablet 100 mg PO TID RF: 0 Breo Ellipta 100-25 mcg/dose Blister With Device 1 inh INHALATION DAILY RF: 0 Discontinued oxycodone-acetaminophen 1 TABLET tablet 1 - 2 tab PO Q6H PRN PRN (Reason: Pain) Qty: 20 RF: 0 oxycodone-acetaminophen [Percocet] 5-325 mg Tablet 1 tab PO Q8H PRN (Reason: Pain) RF: 0 Referrals / Follow Up: Iris Henderson NP, [employer] [Primary Care Provider] - Emigdio Zepeda PA-C [PHYSICIAN AIR PRESS OPERATOR] - 02/18/21 1:45 pm Disposition Disposition (needs filled in before D/C Order can be placed): Home Health Service
[2021-02-06 09:06] VITALS: BP 115/57; PULSE 78; RESP 16; TEMP 36.4; O2SAT 96
[2021-02-06] MEDS: Multivitamins,Ther W-Minerals Tablet 1 TABLET PO (09:55)
[2021-02-06] MEDS: predniSONE 1 MG Tablet 4 MG PO (09:55)
[2021-02-06] MEDS: Meloxicam 7.5 MG Tablet PO (10:00)
[2021-02-06] MEDS: Cholecalciferol (VIT D3) 25 MCG TABLET (1,000 UNITS) 100 MCG PO (10:02)
[2021-02-06] MEDS: Sertraline 50 MG Tablet PO (10:06)
[2021-02-06] MEDS: Famotidine 20 MG Tablet PO (10:08)
[2021-02-06] MEDS: Ensure Surgery 237 ML LIQUID PO (10:09)
== END 2021-02-06 11:37 | disposition home health service (06) | DRG 470 ==
LOC: SDC 10:54 → MS3 10:54
PROVIDERS: Anesthesiology; Physician Assistant Surgical; Admitting Provider Specialist; PCP Nurse Practitioner Family; Referring Provider Specialist; Visit Provider Specialist
PROC: 0SRC0JZ Replacement of Right Knee Joint with Synthetic Substitute, Open Approach (ICD-10-PCS; CPT 27447; principal; 2021-02-04 08:15)
DX: M17.11 Unilateral primary osteoarthritis, right knee (principal); M33.20 Polymyositis, organ involvement unspecified; D62 Acute posthemorrhagic anemia; M87.9 Osteonecrosis, unspecified; T38.0X5A Adverse effect of glucocorticoids and synthetic analogues, initial encounter; S83.289A Other tear of lateral meniscus, current injury, unspecified knee, initial encounter; R42 Dizziness and giddiness; R11.2 Nausea with vomiting, unspecified; E03.9 Hypothyroidism, unspecified; E78.00 Pure hypercholesterolemia, unspecified; F32.9 Major depressive disorder, single episode, unspecified; G25.81 Restless legs syndrome; I73.00 Raynaud's syndrome without gangrene; J45.909 Unspecified asthma, uncomplicated; Z79.52 Long term (current) use of systemic steroids; M34.9 Systemic sclerosis, unspecified; Z87.442 Personal history of urinary calculi; Z96.641 Presence of right artificial hip joint; Z90.710 Acquired absence of both cervix and uterus; Z88.6 Allergy status to analgesic agent; Z88.1 Allergy status to other antibiotic agents; Z88.0 Allergy status to penicillin; Z72.0 Tobacco use
CPT/HCPCS: 36415; 73560; 80048; 82962; 83735; 84443; 85018; 85027; 87081; 87426; 88305; 88311; 94640; 94762; 97110; 97116; 97162; 97166; 97530; 97535; 99251; C1776; C9803; J7120; G0463; J2405; J3475

== ENCOUNTER 2021-02-07 19:32 | Emergency (ER) | payer MEDICARE, SELFPAY ==
[2021-02-04 13:00] VITALS: BMI 19.5
[2021-02-07] VITALS (9 sets, daily range): BP systolic 58–93; BP diastolic 39–78; PULSE 74–91; RESP 12–24; TEMP 36.2–36.5; O2SAT 92–100; BMI 21.0
--- NOTE | 2021-02-07 19:56 | CT_ITS ---
EXAMINATION : Head CT w/out contrast HISTORY : ms change COMPARISON : None. TECHNIQUE : Multiple contiguous axial images were obtained from the skull base to the vertex without intravenous contrast. A radiation dose optimization technique was used for this scan. FINDINGS : The ventricles and sulci are normal in size. There is no evidence for acute intracranial hemorrhage, mass effect, or midline shift. There is no extra-axial fluid collection. There is normal tam-white differentiation, without CT evidence of acute ischemia or infarct. The skull base and calvarium are unremarkable. The orbits are unremarkable. The paranasal sinuses are clear. The mastoid air cells are well-aerated. The soft tissues are unremarkable. CT/Brain/Head without Contrast IMPRESSION: No acute intracranial abnormality. Electronically Signed: Hiram Pereira MD at 21:44 EDT Tel , Service support ,
--- NOTE | 2021-02-07 19:56 | EKG12_ITS ---
Test Reason : WEA Blood Pressure : / mmHG Vent. Rate : 077 BPM Atrial Rate : 077 BPM P-R Int : 136 ms QRS Dur : 098 ms QT Int : 348 ms P-R-T Axes : 095 099 181 degrees QTc Int : 393 ms Somatic/Motion Artifact Normal sinus rhythm Incomplete right bundle branch block Nonspecific ST and T wave abnormality Abnormal ECG Confirmed by DOMINGA DINERO, ARMANDO ([id number]), news assignment editor DAVID LAZARO ([id number]) on 02/11/2021 9:46:11 AM Referred By: LEONIDAS Confirmed By:ARMANDO ORR MD
--- NOTE | 2021-02-07 19:58 | EX.ED.DYSGE1 ---
HPI History of Present Illness Chief Complaint: Alt LOC Informant: patient and family Onset/Context/Timing Onset: Days Context: Gradual Onset Timing: Continuous Current Severity: Moderate Maximum Severity: Severe Narrative Narrative: 56-year-old female history of polymyositis, scleroderma and osteoarthritis. Recent right knee replacement surgery on Tuesday by Dr. Juan Barnes. Patient was discharged from this hospital to home yesterday. She has had decreased oral intake. Decreased urination. And decreasing mental status. No fever. No vomiting. No diarrhea. Per the daughter no headaches or falls. Prior similar symptoms: No Recent Illness/Hospitalization: Yes [facility] Medical History Anxiety Arthritis Asthma Broken teeth Depression Difficulty swallowing High cholesterol History of amputation of finger History of CHF (congestive heart failure) History of echocardiogram History of steroid therapy History of stress test Hypoglycemia Neck pain Non-smoker Polymyositis Restless legs Restrictive lung disease Scleroderma Wears glasses Home Medications Centrum Silver 1 ea PO DAILY 09/23/13 [History Last Taken 02/04/21] Ropinirole Hcl [Requip] 0.5 mg PO QHS 09/23/13 [History Last Taken 02/04/21] albuterol sulfate 2.5 mg INHALATION Q6HWA.RT 09/23/13 [History Last Taken 02/04/21] albuterol sulfate [Ventolin HFA] 1 - 2 puff INHALATION Q6H PRN PRN 09/23/13 [History Last Taken 02/04/21] prednisone 4 mg PO DAILY 09/23/13 [History Last Taken 02/04/21] Mucinex Sinus-Max Cng-Pain(DM) 1 cap PO DAILY 01/12/21 [History Last Taken 02/04/21] atorvastatin 10 mg PO DAILY 01/12/21 [History Last Taken 02/04/21] baclofen 10 mg PO TID PRN PRN 01/12/21 [History Last Taken 02/04/21] cholecalciferol (vitamin D3) 100 mcg PO QODAY 01/12/21 [History Last Taken 02/04/21] levothyroxine 100 mcg PO DAILY 01/12/21 [History Last Taken 02/04/21] meloxicam 15 mg PO DAILY 01/12/21 [History Last Taken 01/30/21] sertraline [Zoloft] 50 mg PO BID 01/12/21 [History Last Taken 02/04/21] trazodone 50 mg PO QHS PRN 01/12/21 [History Last Taken 02/04/21] Arthrozene 1 cap PO/SL DAILY 01/28/21 [History Last Taken 02/04/21] Breo Ellipta 1 inh INHALATION DAILY 01/28/21 [History Last Taken 02/04/21] gabapentin 100 mg PO TID 01/28/21 [History Last Taken 02/04/21] acetaminophen 1,000 mg PO TID #100 tab 02/06/21 [Rx Last Taken Unknown] oxycodone 5 - 10 mg PO Q4H PRN PRN 4 Days #36 tab 02/06/21 [Rx Last Taken Unknown] rivaroxaban [Xarelto] 10 mg PO DAILY@0600 #12 tab 02/06/21 [Rx Last Taken Unknown] sennosides-docusate sodium [Stool Softener-Stimulant Laxat] 2 tab PO BID #10 tab 02/06/21 [Rx Last Taken Unknown] Allergy/AdvReac Type Severity Reaction Status Date / Time aspirin Allergy Unknown Verified 02/07/21 19:33 ceftazidime pentahydrate Allergy Hives Verified 02/07/21 19:33 [From Fortaz] clindamycin Allergy Rash Verified 02/07/21 19:33 Penicillins Allergy Hives Verified 02/07/21 19:33 povidone-iodine Allergy Itching Verified 02/07/21 19:33 [From Betadine] soap [From Betadine] Allergy Itching Verified 02/07/21 19:33 erythromycin base AdvReac Diarrhea Verified 02/07/21 19:33 [Erythromycin Base] Surgical History History of hysterectomy History of right hip replacement History of tubal ligation History of vascular surgery Status post right knee replacement Social History Smoking Status: Never smoker ROS ROS ED ROS Narrative Decreased mental status. Review of Systems ROS Unobtainable: Denies due to encephalopathy Constitutional Constitutional ED: Denies chills or fever(s) Eyes Eyes: Denies change in vision ENT ENT ED: Denies ear pain or sore throat Cardiovascular Cardiovascular: Denies chest pain Respiratory/Chest Respiratory/Chest: Denies cough or dyspnea Gastrointestinal Gastrointestinal: Denies abdominal pain, diarrhea, nausea or vomiting Genitourinary Genitourinary ED: Denies dysuria or hematuria Musculoskeletal Musculoskeletal: Reports arthralgias; Denies myalgias Integumentary Denies rash Neurologic Neurologic: Denies headache(s) Psychiatric Psychiatric: Denies depression Endocrine Endocrinology: Denies polyuria Allergic/Immunologic Allergic/Immunologic ED: Denies urticaria EXAM Physical Exam Narrative Exam Narrative: Middle-aged female hypotensive and clinically looks dehydrated. Lying in bed but responsive. Daughter present in the room. HEENT exam very dry mucous membranes. Pupils round react light. She will open her eyes. No signs of trauma to her face or scalp. Neck nontender no meningismus. No lymphadenopathy. Lungs clear to auscultation bilaterally. Heart regular rhythm rate about 75 no murmur. Chest nontender. Abdomen soft nontender normal bowel sounds no peritoneal signs. Patient moving all 4 extremities. She has had recent right knee surgery. There is bruising and mild swelling to the distal right lower leg. Neurologically she is diminished but arousable will answer questions and follow limited commands. Const Vital Signs: 02/07/21 19:34 02/07/21 19:45 02/07/21 19:51 Temperature 97.4 F L Temperature Source Temporal Pulse Rate 74 Respiratory Rate 12 17 Respiratory Effort Normal Non-Labored Respiratory Pattern Normal Blood Pressure 75/43 L 61/44 L Blood Pressure Mean 53 49 Pulse Ox 93 Oxygen Delivery Method Room Air Room Air Oxygen Flow Rate (L/min) 02/07/21 20:06 02/07/21 20:08 02/07/21 20:21 Temperature 97.1 F L Temperature Source Temporal Pulse Rate Respiratory Rate 15 Respiratory Effort Respiratory Pattern Blood Pressure Blood Pressure Mean Pulse Ox 93 92 Oxygen Delivery Method Room Air Room Air Oxygen Flow Rate (L/min) 02/07/21 20:47 02/07/21 21:00 02/07/21 22:00 Temperature 97.7 F L 97.2 F L 97.4 F L Temperature Source Temporal Temporal Temporal Pulse Rate 78 91 74 Respiratory Rate 24 H 19 H 16 Respiratory Effort Respiratory Pattern Blood Pressure 58/39 L 69/43 L 85/59 L Blood Pressure Mean 45 51 67 Pulse Ox 98 92 100 Oxygen Delivery Method Nasal Cannula Nasal Cannula Nasal Cannula Oxygen Flow Rate (L/min) 2 2 2 Positive well nourished and well developed; Negative for obese, cachectic, contractures or unkempt General Appearance ED: well developed; Negative for unkempt, cachectic or contractures Nutritional Appearance: Negative for cachectic or obese HEENT Reports dry mucous membranes Negative for trauma or tenderness Mouth ED: Yes dry mucous membranes Mouth: dry mucous membranes Eyes PERRL and EOMs intact bilaterally Neck no lymphadenopathy and supple General: Negative for tenderness Chest Wall inspection of chest normal and palpation of chest normal Resp normal respiratory effort and clear to auscultation bilaterally Effort and Inspection: Negative for pain with movement Auscultation: Negative for rales or rhonchi Cardio regular rate, regular rhythm, S1 normal heart sound, S2 normal heart sound and no murmurs GI normal to inspection, nondistended, normoactive bowel sounds, non-tender and non-distended Palpation: soft Back/Spine no CVA tenderness General Back: Negative for CVA tenderness Cervical Spine: Negative for cervical spine tenderness Thoracic Spine / Upper Back: Negative for thoracic spinal tenderness Extremity normal to inspection Extremity Narrative: Status post right knee replacement. Well-healing. Distal mild edema. Bruising. No signs of infection on the knee surgical site. No redness or discharge. Neuro Neuro Narrative: Patient lying in bed. She will open her eyes. She will follow limited commands. Sensorium / Orientation: alert Psych mental status grossly normal Appearance: Negative for unkempt Skin no rashes or lesions noted and no wounds MDM MDM MDM Narrative Medical decision making narrative: Middle-aged female recent right knee replacement surgery with decreased mental status. Clinically looks very dehydrated. She will receive IV fluids undergo a sepsis work-up. She was placed on Xarelto for a post operative orthopedic course to prevent DVT. I will obtain a CAT scan of her head. She will need to be admitted. She is hypotensive. Patient's chest x-ray is consistent with pneumonia given her current condition she is in septic shock from pneumonia. She has coagulopathy and elevated liver enzymes consistent with shock liver. Currently she has had about a liter and a half of fluid and her pressure is much improved she is currently about 95/70. She will get a another liter and a half of fluid and be reassessed. She is being started on IV Zosyn and vancomycin. She will also be given treatment for acute hyperkalemia. Her anemia is her baseline. The overnight hospitalist would prefer the patient to be transferred to a larger facility if possible.. I initially attempted [facility] who has no beds available. I have spoken to the [facility] at 10:50 PM. They are willing to accept the patient were awaiting bed assignment. While awaiting the patient will continue to get IV fluids, IV antibiotics and treatment for acute hyperkalemia. If the transfer is significantly delayed she will be admitted here to the ICU. Due to her significant coagulopathy I am holding off on central line placement at this time because we have to good peripheral lines. And she is responding to IV fluids. I would continue to give her IV fluids and see how her vital signs correlate. I discussed this all with the daughter who is comfortable with the plan at this time. Lab Data Attestation: I reviewed the patient's lab results. Lab results narrative: CBC shows white count 1.7. Hemoglobin 8.7. MCV of 101. Patient's INR is 6.4 and her PTT is 51. Lactic acid is 8.8. Electrolytes show hyperkalemia with a potassium of 6.2 which is being treated currently. BUN is 37 creatinine 1.5 consistent with dehydration. Liver enzymes are significantly elevated secondary to shock liver most likely. Labs: Laboratory Results - last 24 hr 02/07/21 02/07/21 02/07/21 19:45 19:45 20:20 WBC 11.7 H RBC 3.03 L Hgb 8.7 L Hct 30.8 L MCV 101.7 H MCH 28.7 MCHC 28.2 L RDW Std Deviation 55.0 H RDW Coeff of Himanshu 14.8 H Plt Count 248 MPV 11.5 Immature Gran % (Auto) 0.800 Neut % (Auto) 88.3 H Lymph % (Auto) 2.3 L [place] % (Auto) 8.5 Eos % (Auto) 0.0 Baso % (Auto) 0.1 Absolute Neuts (auto) 10.3 H Absolute Lymphs (auto) 0.27 L Nucleated RBC % 0.2 Differential Comment SEE COMMENT Platelet Estimate ADEQUATE RBC Morphology N CHROM Anisocytosis 1+ Macrocytosis 1+ PT 55.2 H INR 6.4 H* APTT 51.1 H Sodium Cancelled Potassium Cancelled Chloride Cancelled Carbon Dioxide Cancelled Anion Gap Cancelled BUN Cancelled Creatinine Cancelled Estim Creat Clear Calc Cancelled Est GFR (MDRD) Af Amer Cancelled Est GFR (MDRD) Non-Af Cancelled BUN/Creatinine Ratio Cancelled Glucose Cancelled Lactic Acid Calcium Cancelled Total Bilirubin Cancelled AST Cancelled ALT Cancelled Alkaline Phosphatase Cancelled Total Protein Cancelled Albumin Cancelled Globulin Cancelled Albumin/Globulin Ratio Cancelled Urine Color Urine Clarity Urine pH Ur Specific [place] Urine Protein Urine Glucose (UA) Urine Ketones Urine Occult Blood Urine Nitrite Urine Bilirubin Urine Urobilinogen Ur Leukocyte Esterase 02/07/21 02/07/21 02/07/21 20:20 21:01 22:03 WBC RBC Hgb Hct MCV MCH MCHC RDW Std Deviation RDW Coeff of Himanshu Plt Count MPV Immature Gran % (Auto) Neut % (Auto) Lymph % (Auto) [place] % (Auto) Eos % (Auto) Baso % (Auto) Absolute Neuts (auto) Absolute Lymphs (auto) Nucleated RBC % Differential Comment Platelet Estimate RBC Morphology Anisocytosis Macrocytosis PT INR APTT Sodium 137 Potassium 6.2 H* Chloride 99 Carbon Dioxide 29.0 Anion Gap 9 BUN 37 H Creatinine 1.50 H Estim Creat Clear Calc 35.73 Est GFR (MDRD) Af Amer 46 L Est GFR (MDRD) Non-Af 38 L BUN/Creatinine Ratio 24.7 H Glucose 107 H Lactic Acid 8.8 H* Calcium 7.7 L Total Bilirubin 1.40 H AST 51165 H ALT 7208 H Alkaline Phosphatase 126 H Total Protein 6.1 L Albumin 2.5 L Globulin 3.6 Albumin/Globulin Ratio 0.7 L Urine Color [place] Urine Clarity Cloudy Urine pH 5.0 Ur Specific [place] 1.025 Urine Protein 100 H Urine Glucose (UA) Normal Urine Ketones 5 H Urine Occult Blood 250 H Urine Nitrite Negative Urine Bilirubin 1 H Urine Urobilinogen 4 H Ur Leukocyte Esterase 25 H Radiography Chest X-Ray - ED: 1 View, Read by ED Physician, Read by Radiologist, Heart, Mediastinum, Bony Structures, Chronic Changes, Right Infiltrate and Left Infiltrate Diagnostic Testing: Radiology Impression Brain CT 02/07/21 19:56 IMPRESSION: No acute intracranial abnormality. Electronically Signed: Hiram Pereira MD at 21:44 EDT Tel , Service support , Chest X-Ray 02/07/21 20:29 IMPRESSION: Bilateral pneumonia. Electronically Signed: Lucas Hartman MD at 21:00 EDT , Service support , Rhythm Strip Rhythm Strip: Sinus Rhythm Rate: 77 Ectopy: None EKG Initial EKG: Attestation: I personally reviewed and interpreted this EKG as follows: Interpretation: Sinus Rhythm and No Acute Injury Pattern Comments: Sinus rhythm rate of 77 no acute signs of SD or ischemia. Critical Care Time Critical Care Time: Yes Critical care time (excluding procedures): 30-74 minutes, Including time spent:, Discussing w/Patient &/or Family/Shirt Turner, Discussing w/Consultants, Arranging Admission or Transfer, Performing Direct Patient Care at Bedside and - (32 minutes) Discharge Plan Triage Chief Complaint: Alt LOC ED Provider: Jaquan Montiel Dx/Rx/DC Orders Clinical Impression: Sepsis with acute liver failure and septic shock, Acute pneumonia, Coagulopathy, Shock liver, Acute hyperkalemia, Acute dehydration Prescriptions: No Action albuterol sulfate 2.5 MG/3 ML solution for nebulization 2.5 mg inhalation Q6HWA.RT RF: 0 prednisone 5 MG tablet 4 mg PO DAILY RF: 0 albuterol sulfate [Ventolin HFA] 1 INHALER inhaler 1 - 2 puff inhalation Q6H PRN PRN (Reason: Shortness Of Breath) RF: 0 Centrum Silver 1 EACH tablet 1 ea PO DAILY RF: 0 Ropinirole Hcl [Requip] 1 MG tablet 0.5 mg PO QHS RF: 0 trazodone 50 mg Tablet 50 mg PO QHS PRN (Reason: depression) RF: 0 atorvastatin 10 mg Tablet 10 mg PO DAILY RF: 0 meloxicam 15 mg tablet 15 mg PO DAILY RF: 0 levothyroxine 100 mcg Tablet 100 mcg PO DAILY RF: 0 baclofen 10 mg tablet 10 mg PO TID PRN PRN (Reason: neck pain) RF: 0 sertraline [Zoloft] 50 mg Tablet 50 mg PO BID RF: 0 Mucinex Sinus-Max Cng-Pain(DM) 5-10-325 mg Capsule 1 cap PO DAILY RF: 0 cholecalciferol (vitamin D3) 100 mcg (4,000 unit) Capsule 100 mcg PO QODAY RF: 0 Arthrozene 1 cap PO/SL DAILY RF: 0 gabapentin 100 mg Tablet 100 mg PO TID RF: 0 Breo Ellipta 100-25 mcg/dose Blister With Device 1 inh INHALATION DAILY RF: 0 acetaminophen 500 mg Tablet 1,000 mg PO TID Qty: 100 RF: 0 oxycodone 5 mg Tablet 5 - 10 mg PO Q4H PRN PRN (Reason: Pain Score 4-10) 4 Days Qty: 36 RF: 0 Xarelto 10 mg Tablet 10 mg PO DAILY@0600 Qty: 12 RF: 0 sennosides-docusate sodium [Stool Softener-Stimulant Laxat] 8.6-50 mg Tablet 2 tab PO BID Qty: 10 RF: 0 Primary Care Provider: Iris Henderson NP Referrals: Iris Henderson NP, [employer] [Primary Care Provider] - Disposition Disposition: Acute Care Hospital
[2021-02-07] MEDS: 0.9% Normal Saline 1,000 ML 999 ML IV ×4 (20:23→23:26)
--- NOTE | 2021-02-07 20:29 | RAD_ITS ---
STUDY: X-RAY CHEST REASON FOR EXAM: Female, 56 years old. CHEST PAIN ms change TECHNIQUE: XR Chest 1 View COMPARISON: Prior comparison studies are not available for review at this time. FINDINGS: There are bilateral pleural effusions. There are bilateral infiltrates. Normal size heart. Normal mediastinum and sherrie. Normal visualized pulmonary arteries. There is atherosclerotic calcification of the aortic arch with tortuosity. There are diffuse degenerative changes of the visualized thoracic spine. There is degenerative osteoarthritis of the bilateral shoulders. There is no demonstrated abnormality of the visualized soft tissue structures of the upper abdomen. RAD/Chest 1 View (Portable) IMPRESSION: Bilateral pneumonia. Electronically Signed: Lucas Hartman MD at 21:00 EDT , Service support ,
[2021-02-07 20:32] LABS: Absolute Lymphocyte Count 0.27 X10^3/uL (0.83-4.51); Absolute Neutrophil Count 10.3 X10^3/uL (2.0-7.7); Basophil# 0.01 X10^3/uL; Basophil% 0.1 % (0-1); Hematocrit 30.8 % (37-47); Hemoglobin 8.7 g/dL (12.0-15.0); Lymphocyte # 0.27 X10^3/ul (0.83-4.51); Lymphocyte % 2.3 % (19-41); Mean Corp Hgb Conc 28.2 g/dL (32-36); Mean Corpuscular Hgb 28.7 pg (27.0-32.0); Mean Corpuscular Volume 101.7 fL (81-99); Mean Platelet Vol. 11.5 fl (6.2-12.0); Monocyte# 0.99 X10^3/uL; Monocyte% 8.5 % (0-10); NRBC Flagged by Analyzer 0.2 % (0-5); Neutrophil # 10.32 X10^3/uL (2.7-7.7); Neutrophil % 88.3 % (47-70); POSITIVE DIFFERENTIAL YES; Platelet Count 248 K/mm3 (150-450); RBC Distribution Width CV 14.8 % (11.6-14.6); Red Blood Count 3.03 M/mm3 (4.2-5.4); White Blood Count 11.7 K/mm3 (4.4-11.0)
[2021-02-07] MEDS: Ondansetron 4 MG/2 ML Vial IV (20:34)
[2021-02-07 20:44] LABS: Partial Thromboplast Time 51.1 Seconds (24.1-36.2); Prothrombin Time (Protime)PT. 55.2 SECONDS (11.7-14.9)
[2021-02-07 20:50] LABS: International Normalized Ratio 6.4
[2021-02-07 20:52] LABS: Differential Indicated SCAN CRITERIA MET
[2021-02-07 21:10] LABS: Anisocytosis 1+; Macrocytosis 1+; Platelet Estimate ADEQUATE (ADEQ); Red Cell Morphology N CHROM NORMAL (NORM C&C)
[2021-02-07 21:25] LABS: Lactic Acid 8.8 mmol/L (0.4-1.9)
[2021-02-07 21:58] LABS: ALB/GLOB Ratio 0.7 RATIO (0.9-2.4); AST(SGOT) 13030 U/L (15-37); Alanine Aminotransfer ALT/SGPT 7208 U/L (13-56); Albumin, Serum 2.5 g/dL (3.2-5.0); Alkaline Phosphatase 126 U/L (45-117); Anion Gap 9 (5-15); BUN 37 mg/dL (7-18); BUN/Creat Ratio 24.7 RATIO (10-20); Calcium,Total 7.7 mg/dL (8.5-10.1); Chloride 99 mmol/L (98-107); EST Glomerular Filtration Rate 38 mL/min (>60); Est Glom Filt Rate - Afr Amer 46 mL/min (>60); Estimated Creatinine Clearance 35.73 ml/min; Globulin 3.6 g/dL (2.2-4.2); Glucose 107 mg/dL (74-106); Potassium 6.2 mmol/L (3.5-5.1); Protein, Total 6.1 g/dL (6.4-8.2); Sodium Level 137 mmol/L (136-145)
--- NOTE | 2021-02-07 22:01 | PCM.HP.STD ---
HPI - General HPI Narrative TENNILLE SULLIVAN, is a 56 F who presents [facility] Medical History Anxiety Arthritis Asthma Broken teeth Depression Difficulty swallowing High cholesterol History of amputation of finger History of CHF (congestive heart failure) History of echocardiogram History of steroid therapy History of stress test Hypoglycemia Neck pain Non-smoker Polymyositis Restless legs Restrictive lung disease Scleroderma Wears glasses Home Medications Centrum Silver 1 ea PO DAILY 09/23/13 [History Last Taken 02/04/21] Ropinirole Hcl [Requip] 0.5 mg PO QHS 09/23/13 [History Last Taken 02/04/21] albuterol sulfate 2.5 mg INHALATION Q6HWA.RT 09/23/13 [History Last Taken 02/04/21] albuterol sulfate [Ventolin HFA] 1 - 2 puff INHALATION Q6H PRN PRN 09/23/13 [History Last Taken 02/04/21] prednisone 4 mg PO DAILY 09/23/13 [History Last Taken 02/04/21] Mucinex Sinus-Max Cng-Pain(DM) 1 cap PO DAILY 01/12/21 [History Last Taken 02/04/21] atorvastatin 10 mg PO DAILY 01/12/21 [History Last Taken 02/04/21] baclofen 10 mg PO TID PRN PRN 01/12/21 [History Last Taken 02/04/21] cholecalciferol (vitamin D3) 100 mcg PO QODAY 01/12/21 [History Last Taken 02/04/21] levothyroxine 100 mcg PO DAILY 01/12/21 [History Last Taken 02/04/21] meloxicam 15 mg PO DAILY 01/12/21 [History Last Taken 01/30/21] sertraline [Zoloft] 50 mg PO BID 01/12/21 [History Last Taken 02/04/21] trazodone 50 mg PO QHS PRN 01/12/21 [History Last Taken 02/04/21] Arthrozene 1 cap PO/SL DAILY 01/28/21 [History Last Taken 02/04/21] Breo Ellipta 1 inh INHALATION DAILY 01/28/21 [History Last Taken 02/04/21] gabapentin 100 mg PO TID 01/28/21 [History Last Taken 02/04/21] acetaminophen 1,000 mg PO TID #100 tab 02/06/21 [Rx Last Taken Unknown] oxycodone 5 - 10 mg PO Q4H PRN PRN 4 Days #36 tab 02/06/21 [Rx Last Taken Unknown] rivaroxaban [Xarelto] 10 mg PO DAILY@0600 #12 tab 02/06/21 [Rx Last Taken Unknown] sennosides-docusate sodium [Stool Softener-Stimulant Laxat] 2 tab PO BID #10 tab 02/06/21 [Rx Last Taken Unknown] Allergy/AdvReac Type Severity Reaction Status Date / Time aspirin Allergy Unknown Verified 02/07/21 19:33 ceftazidime pentahydrate Allergy Hives Verified 02/07/21 19:33 [From Fortaz] clindamycin Allergy Rash Verified 02/07/21 19:33 Penicillins Allergy Hives Verified 02/07/21 19:33 povidone-iodine Allergy Itching Verified 02/07/21 19:33 [From Betadine] soap [From Betadine] Allergy Itching Verified 02/07/21 19:33 erythromycin base AdvReac Diarrhea Verified 02/07/21 19:33 [Erythromycin Base] Surgical History History of hysterectomy History of right hip replacement History of tubal ligation History of vascular surgery Status post right knee replacement Social History Smoking Status: Never smoker Vital Signs Vital Signs Vital Signs: 02/07/21 19:34 02/07/21 19:45 02/07/21 19:51 Temperature 97.4 F L Temperature Source Temporal Pulse Rate 74 Respiratory Rate 12 17 Respiratory Effort Normal Non-Labored Respiratory Pattern Normal Blood Pressure 75/43 L 61/44 L Blood Pressure Mean 53 49 Pulse Ox 93 Oxygen Delivery Method Room Air Room Air Oxygen Flow Rate (L/min) 02/07/21 20:06 02/07/21 20:08 02/07/21 20:21 Temperature 97.1 F L Temperature Source Temporal Pulse Rate Respiratory Rate 15 Respiratory Effort Respiratory Pattern Blood Pressure Blood Pressure Mean Pulse Ox 93 92 Oxygen Delivery Method Room Air Room Air Oxygen Flow Rate (L/min) 02/07/21 20:47 Temperature 97.7 F L Temperature Source Temporal Pulse Rate 78 Respiratory Rate 24 H Respiratory Effort Respiratory Pattern Blood Pressure 58/39 L Blood Pressure Mean 45 Pulse Ox 98 Oxygen Delivery Method Nasal Cannula Oxygen Flow Rate (L/min) 2 Weight Weight: 55.6 kg Body Mass Index (BMI) 21.0 Results Lab / Micro Data Result Diagrams: 02/07/21 19:45 02/07/21 21:01 Labs: Laboratory Results - last 24 hr 02/07/21 19:45: WBC 11.7 H, RBC 3.03 L, Hgb 8.7 L, Hct 30.8 L, MCV 101.7 H, MCH 28.7, MCHC 28.2 L, RDW Std Deviation 55.0 H, RDW Coeff of Himanshu 14.8 H, Plt Count 248, MPV 11.5, Immature Gran % (Auto) 0.800, Neut % (Auto) 88.3 H, Lymph % (Auto) 2.3 L, [place] % (Auto) 8.5, Eos % (Auto) 0.0, Baso % (Auto) 0.1, Absolute Neuts (auto) 10.3 H, Absolute Lymphs (auto) 0.27 L, Nucleated RBC % 0.2, Differential Comment SEE COMMENT, Platelet Estimate ADEQUATE, RBC Morphology N CHROM, Anisocytosis 1+, Macrocytosis 1+ 02/07/21 19:45: Sodium Cancelled, Potassium Cancelled, Chloride Cancelled, Carbon Dioxide Cancelled, Anion Gap Cancelled, BUN Cancelled, Creatinine Cancelled, Estim Creat Clear Calc Cancelled, Est GFR (MDRD) Af Amer Cancelled, Est GFR (MDRD) Non-Af Cancelled, BUN/Creatinine Ratio Cancelled, Glucose Cancelled, Calcium Cancelled, Total Bilirubin Cancelled, AST Cancelled, ALT Cancelled, Alkaline Phosphatase Cancelled, Total Protein Cancelled, Albumin Cancelled, Globulin Cancelled, Albumin/Globulin Ratio Cancelled 02/07/21 20:20: PT 55.2 H, INR 6.4 H*, APTT 51.1 H 02/07/21 20:20: Lactic Acid 8.8 H* 02/07/21 21:01: Sodium 137, Potassium 6.2 H*, Chloride 99, Carbon Dioxide 29.0, Anion Gap 9, BUN 37 H, Creatinine 1.50 H, Estim Creat Clear Calc 35.73, Est GFR (MDRD) Af Amer 46 L, Est GFR (MDRD) Non-Af 38 L, BUN/Creatinine Ratio 24.7 H, Glucose 107 H, Calcium 7.7 L, Total Bilirubin 1.40 H, AST 74686 H, ALT 7208 H, Alkaline Phosphatase 126 H, Total Protein 6.1 L, Albumin 2.5 L, Globulin 3.6, Albumin/Globulin Ratio 0.7 L Radiology Impression Brain CT 02/07/21 19:56 IMPRESSION: No acute intracranial abnormality. Electronically Signed: Hiram Pereira MD at 21:44 EDT Tel , Service support , Chest X-Ray 02/07/21 20:29 IMPRESSION: Bilateral pneumonia. Electronically Signed: Lucas Hartman MD at 21:00 EDT , Service support ,
--- NOTE | 2021-02-07 22:08 | EKG12_ITS ---
Test Reason : ALT LOC Blood Pressure : / mmHG Vent. Rate : 074 BPM Atrial Rate : 074 BPM P-R Int : 132 ms QRS Dur : 086 ms QT Int : 416 ms P-R-T Axes : 075 079 019 degrees QTc Int : 461 ms Normal sinus rhythm Low voltage QRS Nonspecific T wave abnormality Prolonged QT Abnormal ECG Confirmed by DOMINGA DINERO, ARMANDO ([id number]), television news video editor DAVID LAZARO ([id number]) on 02/11/2021 9:46:26 AM Referred By: DB Confirmed By:ARMANDO ORR MD
[2021-02-07 22:35] LABS: Color, Urine Amber (Yellow); Glucose, Dipstick Normal (Normal); Ketone-Dipstick 5 mg/dl (Negative); Leukocyte Esterase-Dipstick 25 /ul (Negative); Nitrite-Dipstick Negative (Negative); Occult Blood-Urine 250 /ul (Negative); Protein-Dipstick 100 mg/dl (Negative); Specific Gravity, Urine 1.025 (1.002-1.030); Urine Clarity Cloudy (Clear); Urine Urobilinogen 4 mg/dl (Normal)
[2021-02-07 22:36] LABS: Urine Bilirubin Dipstick 1 mg/dL (Negative)
[2021-02-07] MEDS: MethylPREDNISolone 125 MG/2 ML Vial IV (22:52)
[2021-02-07 23:10] LABS: Hyaline Cast 10-25 SEEN /lpf (0-5); Mucous, Urine 4+ /hpf (<or=2+)
[2021-02-07 23:11] LABS: Calcium Oxalate Crystals Ur 1+ /hpf (<or=2+); Fine Granular Cast- Urine 0-5 SEEN /lpf (0-5)
[2021-02-07 23:15] LABS: Bacteria 1+ /hpf (None Seen)
[2021-02-07 23:16] LABS: Red Blood Cells-Urine 5-10 SEEN /hpf (0-5); White Blood Cells 0-5 SEEN /hpf (0-5)
[2021-02-07 23:21] LABS: Amorphous Sediment 1+; Squamous Epithelial Cells - UA 0-5 SEEN /hpf (5-10)
[2021-02-07 23:50] LABS: Blood Gas Specimen Type VEN; SITE R RADIAL
[2021-02-07 23:51] LABS: O2 Delivery Device Nasal Can
[2021-02-07 23:52] LABS: Time Given 2313
[2021-02-07 23:55] LABS: VBG BASE EXCESS -3 mmol/L (-1.0-3.5); VBG Bicarbonate 25 mmol/L (22-26); VBG PO2 43 mmHg (25-40); VBG SO2 64 % (50-70); VBG TCO2 28 mmol/L (23-33); VBG pCO2 69.7 mmHg (41-51); VBG pH 7.17 (7.32-7.42)
[2021-02-08] VITALS: BP 98/59; PULSE 87; RESP 16; TEMP 36.2; O2SAT 96
[2021-02-08] MEDS: Insulin Lispro 10 UNIT in Syringe 0 ML 6 UNIT IV (00:18)
[2021-02-08] MEDS: Dextrose 50%-Water 25 GM/50 ML DISP.SYRIN IV (00:19)
[2021-02-08 00:31] LABS: Reflex Lactate? Y
[2021-02-08 01:11] LABS: Lactic Acid 2.8 mmol/L (0.4-1.9)
[2021-02-08 01:37] VITALS: BP 119/65; PULSE 86; RESP 15; TEMP 36.3; O2SAT 96
[2021-02-08 01:51] LABS: Magnesium 1.9 mg/dL (1.6-2.6); Phosphorus 6.7 mg/dL (2.5-4.9)
== END 2021-02-08 01:59 | disposition short-term general hospital (02) ==
PROVIDERS: Emergency Medicine; Emergency Provider Emergency Medicine; PCP Nurse Practitioner Family
DX: A41.9 Sepsis, unspecified organism (principal); D68.9 Coagulation defect, unspecified; E78.00 Pure hypercholesterolemia, unspecified; E86.0 Dehydration; J18.9 Pneumonia, unspecified organism; J45.909 Unspecified asthma, uncomplicated; K72.00 Acute and subacute hepatic failure without coma; E87.5 Hyperkalemia; F32.9 Major depressive disorder, single episode, unspecified; F41.9 Anxiety disorder, unspecified; I50.9 Heart failure, unspecified; M33.20 Polymyositis, organ involvement unspecified; M34.9 Systemic sclerosis, unspecified; R65.21 Severe sepsis with septic shock; M19.90 Unspecified osteoarthritis, unspecified site; Z79.01 Long term (current) use of anticoagulants; Z79.51 Long term (current) use of inhaled steroids; Z79.52 Long term (current) use of systemic steroids; Z79.1 Long term (current) use of non-steroidal anti-inflammatories (NSAID)
CPT/HCPCS: 36600; 70450; 71045; 80053; 81001; 82803; 83605; 83735; 84100; 84132; 85025; 85610; 85730; 87040; 87086; 87426; 93005; 99285; J7030; J7040; J7050; P9612; A4216; J0610; J2405

== ENCOUNTER 2023-04-23 08:53 | Emergency (ER) | payer MEDICARE, SELFPAY ==
[2023-04-23 08:54] VITALS: BP 100/70; PULSE 80; RESP 16; TEMP 36.4
--- NOTE | 2023-04-23 09:14 | RAD_ITS ---
INDICATION: cough EXAMINATION/TECHNIQUE: X-RAY - XR Chest 1 View COMPARISON: February 07, 2021 FINDINGS: LINES/DEVICES: None. LUNGS: There is a mild left lower lobe fibrosis or atelectasis. Previously visualized superimposed infiltrate has resolved. MEDIASTINUM AND CARDIOVASCULAR STRUCTURES: Cardiac silhouette not enlarged. Central airways and mediastinal contour are unremarkable. BONES AND SOFT TISSUES: Unremarkable. RAD/Chest 1 View (Portable) IMPRESSION: Mild left lower lobe fibrosis or atelectasis. Electronically Signed: Jun Daley MD at 10:24 EDT ,
--- NOTE | 2023-04-23 09:15 | EDS_ITS ---
HPI History of Present Illness Chief Complaint: General Illness Narrative Narrative: Patient presents with myalgias, weakness subjective fevers and a slight cough. She feels like last time she got COVID. Influenza vaccine 3 days ago. She has no dyspnea. She does have a complicated history of restrictive lung disease and polymyositis. [facility] Medical History Anxiety Arthritis Asthma Broken teeth Depression Difficulty swallowing High cholesterol History of amputation of finger History of CHF (congestive heart failure) History of echocardiogram History of steroid therapy History of stress test Hypoglycemia Neck pain Non-smoker Polymyositis Restless legs Restrictive lung disease Scleroderma Wears glasses Home Medications Ropinirole Hcl [Requip] 0.5 mg PO QHS RLS 09/23/13 [History Last Taken 02/04/21] albuterol sulfate 2.5 mg/3 mL (0.083 %) solution for nebulization 2.5 mg inhalation Q6HWA.RT asthma 09/23/13 [History Last Taken 02/04/21] albuterol sulfate 90 mcg/actuation aerosol inhaler (Ventolin HFA) 1 - 2 puff inhalation Q6H PRN PRN Shortness Of Breath 09/23/13 [History Last Taken 0 02/04/21] vzfuwdqw-wkf-ekjfi acid 0.4 mg-lycopene 300 mcg-lutein 250 mcg tablet (Centrum Silver) 1 ea PO DAILY 09/23/13 [History Last Taken 02/04/21] prednisone 5 mg tablet 4 mg PO DAILY 09/23/13 [History Last Taken 02/04/21] atorvastatin 10 mg tablet 10 mg PO DAILY cholesterol 01/12/21 [History Last Taken 02/04/21] baclofen 10 mg tablet 10 mg PO TID PRN PRN neck pain 01/12/21 [History Last Taken 02/04/21] cholecalciferol (vitamin D3) 100 mcg (4,000 unit) capsule 100 mcg PO QODAY supplement 01/12/21 [History Last Taken 02/04/21] levothyroxine 100 mcg tablet 100 mcg PO DAILY thyroid 01/12/21 [History Last Taken 02/04/21] meloxicam 15 mg tablet 15 mg PO DAILY neck pain 01/12/21 [History Last Taken 01/30/21] phenylephrine 5 mg-dextromethorphan 10 mg-acetaminophen 325 mg capsule (Mucinex Sinus-Max Severe Congestion-Pain(DM)) 1 cap PO DAILY congestion 01/12/21 [History Last Taken 02/04/21] sertraline 50 mg tablet (Zoloft) 50 mg PO BID mood 01/12/21 [History Last Taken 02/04/21] trazodone 50 mg tablet 50 mg PO QHS PRN depression 01/12/21 [History Last Taken 02/04/21] Arthrozene 1 cap PO/SL DAILY 01/28/21 [History Last Taken 02/04/21] fluticasone furoate 100 mcg-vilanterol 25 mcg/dose inhalation powder (Breo Ellipta) 1 inh inhalation DAILY 01/28/21 [History Last Taken 02/04/21] gabapentin 100 mg tablet 100 mg PO TID 01/28/21 [History Last Taken 02/04/21] acetaminophen 500 mg tablet 1,000 mg (2 x 500 mg) PO TID #100 tabs 02/06/21 [Rx Last Taken Unknown] oxycodone 5 mg tablet 5 - 10 mg (1 - 2 x 5 mg) PO Q4H PRN PRN Pain Score 4-10 4 days #36 tabs 02/06/21 [Rx Last Taken Unknown] rivaroxaban 10 mg tablet (Xarelto) 10 mg PO DAILY@0600 #12 tabs 02/06/21 [Rx Last Taken Unknown] sennosides 8.6 mg-docusate sodium 50 mg tablet (Stool Softener-Stimulant Laxative) 2 tab PO BID #10 tabs 02/06/21 [Rx Last Taken Unknown] Allergy/AdvReac Type Severity Reaction Status Date / Time aspirin Allergy Unknown Verified 04/23/23 08:54 ceftazidime pentahydrate Allergy Hives Verified 04/23/23 08:54 [From Fortaz] clindamycin Allergy Rash Verified 04/23/23 08:54 Penicillins Allergy Hives Verified 04/23/23 08:54 povidone-iodine Allergy Itching Verified 04/23/23 08:54 [From Betadine] soap [From Betadine] Allergy Itching Verified 04/23/23 08:54 erythromycin base AdvReac Diarrhea Verified 04/23/23 08:54 [Erythromycin Base] Surgical History History of hysterectomy History of right hip replacement History of tubal ligation History of vascular surgery Status post right knee replacement Social History Smoking Status: Never smoker ROS ROS ED ROS Narrative Past medical history: Reviewed Medications: Reviewed Social history: Noncontributory Review of systems: All systems negative except as indicated General: Some subjective fevers, she feels cold currently. Eyes: No visual changes ENT: Some congestion Neck: No neck pain Cardiovascular: No chest pain Respiratory: No shortness of breath or cough Gastrointestinal: No abdominal pain, nausea vomiting or diarrhea Genitourinary: No dysuria Musculoskeletal: Neurolyse myalgias Skin: No rash Neurological: No memory loss, confusion or any focal weakness EXAM Physical Exam Narrative Exam Narrative: Physical exam General: Patient appears relatively comfortable. Head: Normocephalic, Atraumatic Eyes: Conjunctiva not pale ENT: Moist mucous membranes Neck: Supple, Nontender, No lymphadenopathy Cardiovascular: Regular rate, Regular rhythm Respiratory: No distress, speaks in full sentences. Shallow inspiration but she tells me this is chronic. No wheezing. Abdomen: Soft, Nontender, Nondistended Back: Nontender, Normal Inspection. Negative for: CVA tenderness Extremities: Nontender, chronic contractures and missing digits no current infection. Skin: Normal color, No rash Neurological: Alert, Normal Strength, Normal Sensation Const Vital Signs: 04/23/23 08:54 04/23/23 10:05 Temperature 97.6 F L 97.8 F Temperature Source Temporal Temporal Pulse Rate 80 Respiratory Rate 16 Blood Pressure 100/70 Blood Pressure Mean 80 Oxygen Delivery Method Room Air MDM MDM MDM Narrative Medical decision making narrative: Patient is found to have influenza B. Otherwise she has an unremarkable work- up, she has no signs of a pneumonia, lungs are clear, chest x-ray is normal. She is given IV fluids and Toradol and she improved. There is no evidence of sepsis. I believe she can safely be discharged home. If anything changes she is to return. I talked to her I do not recommend remdesivir or any antivirals for her. She agrees with the plan she will be discharged in the care of family members Chest x-ray read by me as normal Lab Data Labs: Laboratory Results - last 24 hr 04/23/23 09:54 WBC 11.6 H RBC 3.81 L Hgb 11.2 L Hct 35.9 L MCV 94.2 MCH 29.4 MCHC 31.2 L RDW Std Deviation 51.1 H RDW Coeff of Himanshu 14.7 H Plt Count 190 MPV 10.9 Immature Gran % (Auto) 0.500 Neut % (Auto) 87.5 H Lymph % (Auto) 5.6 L Otero % (Auto) 5.6 Eos % (Auto) 0.3 Baso % (Auto) 0.5 Absolute Neuts (auto) 10.2 H Absolute Lymphs (auto) 0.65 L Nucleated RBC % 0 Sodium 137 Potassium 4.0 Chloride 101 Carbon Dioxide 31.0 Anion Gap 5 BUN 12 Creatinine 0.38 L Est GFR (MDRD) Af Amer 223 Est GFR (MDRD) Non-Af 184 BUN/Creatinine Ratio 31.6 H Glucose 100 Calcium 8.9 Total Bilirubin 0.80 AST 15 ALT 22 Alkaline Phosphatase 77 Total Protein 7.3 Albumin 3.1 L Globulin 4.2 Albumin/Globulin Ratio 0.7 L Radiography Diagnostic Testing: Clinical Impression(s) from Imaging Studies Chest X-Ray 04/23/23 09:14 IMPRESSION: Mild left lower lobe fibrosis or atelectasis. Electronically Signed: Jun Daley MD at 10:24 EDT , Discharge Plan Triage Chief Complaint: General Illness ED Provider: Lukasz Munoz Dx/Rx/DC Orders Clinical Impression: Myalgia, Influenza Instructions: ED Influenza (Adult) Prescriptions: No Action albuterol sulfate 2.5 MG/3 ML solution for nebulization 2.5 mg inhalation Q6HWA.RT prednisone 5 MG tablet 4 mg PO DAILY albuterol sulfate [Ventolin HFA] 1 INHALER inhaler 1 - 2 puff inhalation Q6H PRN PRN (Reason: Shortness Of Breath) Centrum Silver 1 EACH tablet 1 ea PO DAILY Ropinirole Hcl [Requip] 1 MG tablet 0.5 mg PO QHS Patient Comments: 0.25 mg up to 1 mg trazodone 50 mg Tablet 50 mg PO QHS PRN (Reason: depression) atorvastatin 10 mg Tablet 10 mg PO DAILY meloxicam 15 mg tablet 15 mg PO DAILY Patient Comments: TAKE 1 TABLET BY MOUTH DAILY WITH FOOD levothyroxine 100 mcg Tablet 100 mcg PO DAILY baclofen 10 mg tablet 10 mg PO TID PRN PRN (Reason: neck pain) Patient Comments: TAKE 1 TABLET BY MOUTH EVERY 8 HOURS NEEDED FOR PAIN sertraline [Zoloft] 50 mg Tablet 50 mg PO BID Mucinex Sinus-Max Cng-Pain(DM) 5-10-325 mg Capsule 1 cap PO DAILY cholecalciferol (vitamin D3) 100 mcg (4,000 unit) Capsule 100 mcg PO QODAY Arthrozene 1 cap PO/SL DAILY gabapentin 100 mg Tablet 100 mg PO TID Breo Ellipta 100-25 mcg/dose Blister With Device 1 inh INHALATION DAILY acetaminophen 500 mg Tablet 1,000 mg PO TID Qty: 100 0RF Rx Instructions: Do not take more than 3000 mg Tylenol in a 24-hour period. oxycodone 5 mg Tablet 5 - 10 mg PO Q4H PRN PRN (Reason: Pain Score 4-10) 4 Days Qty: 36 0RF Xarelto 10 mg Tablet 10 mg PO DAILY@0600 Qty: 12 0RF Rx Instructions: Take 1 tablet daily for 2 weeks postoperatively for DVT prophylaxis sennosides-docusate sodium [Stool Softener-Stimulant Laxat] 8.6-50 mg Tablet 2 tab PO BID Qty: 10 0RF Rx Instructions: Take until first bowel movement, then as needed Primary Care Provider: GINNY DU Referrals: Iris Henderson [facility]NER OPERATOR, [facility]PERATOR-C [Non-Staff] - 3-5 Days Disposition Disposition: Home, Self Care
[2023-04-23] MEDS: 0.9% Normal Saline (1000mL) 1,000 ML 1000 ML IV (09:57)
[2023-04-23] MEDS: Ketorolac 15 MG/ML Vial IV (09:57)
[2023-04-23 10:05] VITALS: TEMP 36.6
[2023-04-23 10:15] LABS: Absolute Lymphocyte Count 0.65 X10^3/uL (0.83-4.51); Absolute Neutrophil Count 10.2 X10^3/uL (2.0-7.7); Basophil# 0.06 X10^3/uL; Basophil% 0.5 % (0-1); Eosinophil# 0.03 X10^3/uL; Eosinophils% 0.3 % (0-5); Hematocrit 35.9 % (37-47); Hemoglobin 11.2 g/dL (12.0-15.0); Lymphocyte # 0.65 X10^3/ul (0.83-4.51); Lymphocyte % 5.6 % (19-41); Mean Corp Hgb Conc 31.2 g/dL (32-36); Mean Corpuscular Hgb 29.4 pg (27.0-32.0); Mean Corpuscular Volume 94.2 fL (81-99); Mean Platelet Vol. 10.9 fl (6.2-12.0); Monocyte# 0.65 X10^3/uL; Monocyte% 5.6 % (0-10); NRBC Flagged by Analyzer 0 % (0-5); Neutrophil # 10.17 X10^3/uL (2.7-7.7); Neutrophil % 87.5 % (47-70); Platelet Count 190 K/mm3 (150-450); RBC Distribution Width CV 14.7 % (11.6-14.6); RBC Distribution Width SD 51.1 fl (35.1-43.9); Red Blood Count 3.81 M/mm3 (4.2-5.4); White Blood Count 11.6 K/mm3 (4.4-11.0)
[2023-04-23 10:22] LABS: ALB/GLOB Ratio 0.7 RATIO (0.9-2.4); AST(SGOT) 15 U/L (15-37); Alanine Aminotransfer ALT/SGPT 22 U/L (13-56); Albumin, Serum 3.1 g/dL (3.2-5.0); Alkaline Phosphatase 77 U/L (45-117); Anion Gap 5 (5-15); BUN 12 mg/dL (7-18); BUN/Creat Ratio 31.6 RATIO (10-20); Calcium,Total 8.9 mg/dL (8.5-10.1); Chloride 101 mmol/L (98-107); Creatinine, Serum 0.38 mg/dL (0.55-1.02); EST Glomerular Filtration Rate 184 mL/min (>60); Est Glom Filt Rate - Afr Amer 223 mL/min (>60); Globulin 4.2 g/dL (2.2-4.2); Glucose 100 mg/dL (74-106); Protein, Total 7.3 g/dL (6.4-8.2); Sodium Level 137 mmol/L (136-145)
[2023-04-23 10:57] VITALS: BP 97/66; PULSE 84; RESP 18; O2SAT 96
== END 2023-04-23 10:58 | disposition home or self-care (01) ==
PROVIDERS: Emergency Provider Emergency Medicine; Visit Provider Emergency Medicine
DX: J11.1 Influenza due to unidentified influenza virus with other respiratory manifestations (principal); M79.10 Myalgia, unspecified site; E78.00 Pure hypercholesterolemia, unspecified; Z86.16 Personal history of COVID-19
CPT/HCPCS: 71045; 80053; 85025; 87428; 99283; J7030

== ENCOUNTER 2024-08-18 04:03 | Inpatient (IN) | payer MEDICARE, SELFPAY ==
[2024-08-18] VITALS (17 sets, daily range): BP systolic 87–124; BP diastolic 42–78; PULSE 66–79; RESP 12–24; TEMP 36.3–37; O2SAT 85–99; BMI 14.6; BMI 16.2
[2024-08-18] MEDS: predniSONE 20 MG Tablet 60 MG PO (04:53)
--- NOTE | 2024-08-18 05:03 | RAD_ITS ---
PROCEDURE: PA and lateral chest radiographs, two views REASON FOR EXAM: Cough TECHNIQUE: AP and lateral chest radiographs were obtained. COMPARISON: 04/03/2023 FINDINGS: The cardiomediastinal silhouette is similar. Bones are osteopenic with degenerative changes in the spine. Interval placement of right total shoulder arthroplasty. The lungs appear emphysematous. No pneumothorax or pulmonary vascular congestion. Some coarse markings at the left lung base are similar, possible chronic interstitial lung disease. There is new patchy opacity at the medial right lung base, concerning for right lower lobe pneumonia. RAD/Chest PA and Lateral IMPRESSION: Probable pulmonary emphysema. New patchy opacity medial right lung base, mirella rning for right lower lobe pneumonia. Recommend continued radiologic follow-up to document resolution. Some coarse interstitial markings at the left lung base are relatively similar to the 2022 study and could represent a component of chronic interstitial lung disease. Reading Location: [facility]
[2024-08-18] MEDS: Ipratropium/Albuterol Sulfate 3 ML AMPUL.NEB INHALATION (05:27)
[2024-08-18] MEDS: OSELTAMIVIR PHOSPHATE 6 MG/ML BOTTLE 75 MG PO (07:02)
[2024-08-18] MEDS: 0.9% Normal Saline (500mL Bag) 500 ML 999 ML IV (07:03)
--- NOTE | 2024-08-18 07:06 | EX.ED.DYSGE1 ---
HPI History of Present Illness Chief Complaint: Cough Informant: patient and family Narrative Narrative: Patient is a 59-year-old female with past medical history of polymyositis scleroderma and restrictive lung disease. She states she has had 3 to 5 days of increasing congestion cough and shortness of breath. Her family member was recently sick with influenza. The patient states she does not normally require supplemental oxygen at baseline. She reports that with her worsening cough and shortness of breath sensation she is concerned that she may have developed pneumonia or a repeat episode of mucous plugging and with this comes in for evaluation. [facility] Medical History Wears glasses Broken teeth Depression Anxiety Hypoglycemia History of steroid therapy Arthritis High cholesterol Restless legs Neck pain Scleroderma Polymyositis Difficulty swallowing Restrictive lung disease Non-smoker Asthma History of echocardiogram History of stress test History of CHF (congestive heart failure) Home Medications ?Medication ?Instructions ?Recorded ?Last Taken ?Type albuterol sulfate 2.5 mg/3 mL 2.5 mg inhalation Q6HWA.RT asthma 09/23/13 02/04/21 History (0.083 %) solution for nebulization albuterol sulfate 90 mcg/actuation 1 - 2 puff inhalation Q6H PRN PRN 09/23/13 02/04/21 History aerosol inhaler (Ventolin HFA) Shortness Of Breath vothdqny-lzz-ugdog acid 0.4 1 ea PO DAILY 09/23/13 02/04/21 History mg-lycopene 300 mcg-lutein 250 mcg tablet (Centrum Silver) prednisone 5 mg tablet 4 mg PO DAILY 09/23/13 02/04/21 History cholecalciferol (vitamin D3) 100 100 mcg PO QODAY supplement 01/12/21 02/04/21 History mcg (4,000 unit) capsule levothyroxine 100 mcg tablet 100 mcg PO DAILY thyroid 01/12/21 02/04/21 History trazodone 50 mg tablet 50 mg PO QHS PRN depression 01/12/21 02/04/21 History Arthrozene 1 cap PO/SL DAILY 01/28/21 02/04/21 History acetaminophen 500 mg tablet 1,000 mg (2 x 500 mg) PO TID #100 02/06/21 Unknown Rx tabs paroxetine HCl 10 mg tablet (Paxil) 10 mg PO DAILY 08/18/24 Unknown History ropinirole 1 mg tablet 1 mg PO BID 08/18/24 Unknown History rosuvastatin 20 mg tablet 20 mg PO DAILY 08/18/24 Unknown History Allergy/AdvReac Type Severity Reaction Status Date / Time aspirin Allergy Unknown Verified 08/18/24 04:04 ceftazidime pentahydrate Allergy Hives Verified 08/18/24 04:04 (From Fortaz) clindamycin Allergy Rash Verified 08/18/24 04:04 Penicillins Allergy Hives Verified 08/18/24 04:04 povidone-iodine (From Allergy Itching Verified 08/18/24 04:04 Betadine) soap (From Betadine) Allergy Itching Verified 08/18/24 04:04 erythromycin base AdvReac Diarrhea Verified 08/18/24 04:04 (Erythromycin Base) Surgical History History of hysterectomy History of right hip replacement History of tubal ligation History of vascular surgery Status post right knee replacement Social History Smoking Status: Never smoker ROS ROS ED Constitutional Constitutional ED: Denies chills or fever(s) Eyes Eyes: Denies change in vision ENT ENT ED: Reports rhinorrhea and sore throat Cardiovascular Cardiovascular: Denies chest pain Respiratory/Chest Respiratory/Chest: Reports cough and dyspnea Gastrointestinal Gastrointestinal: Denies abdominal pain, diarrhea, nausea or vomiting Genitourinary Genitourinary ED: Denies dysuria Musculoskeletal Musculoskeletal: Denies myalgias Integumentary Denies rash Neurologic Neurologic: Denies headache(s) Hematologic/Lymphatic Hematologic/Lymphatic: Denies easy bleeding or easy bruising Allergic/Immunologic Allergic/Immunologic ED: Denies mouth swelling or tongue swelling EXAM Physical Exam Const Vital Signs: 08/18/24 04:05 08/18/24 04:05 08/18/24 04:07 Temperature 97.5 F L 97.5 F L Temperature Source Oral Oral Pulse Rate 74 68 Respiratory Rate 20 H 20 H Respiratory Effort Short of Breath Respiratory Depth Shallow Respiratory Pattern Tachypnea Blood Pressure 124/56 H 124/56 H Blood Pressure Mean 78 78 Pulse Ox 97 98 Oxygen Delivery Method Room Air Room Air Room Air Oxygen Flow Rate (L/min) 08/18/24 05:27 08/18/24 05:32 08/18/24 06:00 Temperature 97.8 F 98.0 F Temperature Source Oral Oral Pulse Rate 71 73 71 Respiratory Rate 24 H 12 18 Respiratory Effort Respiratory Depth Respiratory Pattern Tachypnea Blood Pressure 87/54 L 101/54 L Blood Pressure Mean 65 69 Pulse Ox 88 94 Oxygen Delivery Method Room Air Room Air Oxygen Flow Rate (L/min) 08/18/24 06:40 08/18/24 06:45 08/18/24 06:47 Temperature 98.0 F Temperature Source Pulse Rate 74 Respiratory Rate 18 Respiratory Effort Respiratory Depth Respiratory Pattern Blood Pressure 101/54 L Blood Pressure Mean 69 Pulse Ox 85 97 98 Oxygen Delivery Method Room Air Nasal Cannula Oxygen Flow Rate (L/min) 2 08/18/24 07:00 Temperature 98.0 F Temperature Source Oral Pulse Rate 70 Respiratory Rate 18 Respiratory Effort Respiratory Depth Respiratory Pattern Blood Pressure 90/52 L Blood Pressure Mean 64 Pulse Ox 99 Oxygen Delivery Method Nasal Cannula Oxygen Flow Rate (L/min) 2 Positive well nourished and well developed General Appearance ED: well developed; Negative for pallor HEENT HEENT Narrative: Nasal mucosa is hyperemic and boggy with enlarged inferior nasal turbinates There is cobblestoning noted in the posterior pharynx consistent with sinus drainage without tongue or lip swelling oral lesions or airway edema/compromise. Eyes PERRL and EOMs intact bilaterally General Eye ED: Negative for scleral icterus Neck supple and no JVD Chest Wall palpation of chest normal Resp normal respiratory effort Resp Narrative: Breath sounds are diminished throughout with diffuse rhonchi noted consistent with history of restrictive lung disease this is greatest in the left lower lobe However no nasal flaring retractions tachypnea or accessory muscle use Cardio regular rate and regular rhythm Extremity Extremity Narrative: No asymmetric edema no pitting edema negative Homans' sign bilaterally Neuro oriented x3, CN's II-XII intact bilaterally and no sensory deficits noted Sensorium / Orientation: alert Psych mental status grossly normal Skin no rashes or lesions noted General Skin Exam: Negative for jaundice or pallor MDM MDM MDM Narrative Medical decision making narrative: Patient arrived to the ER afebrile normotensive and satting in the high 90s on room air. She has recent exposure to influenza and there is high likelihood that her congestion cough and shortness of breath are related to flu versus COVID versus RSV. Patient may also have developed a secondary pneumonia. She was started on prednisone to help with inflammation and congestion as well as given a DuoNeb treatment. The breathing treatment did help with her rhonchi but she continued to have a large amount of secretions in her upper airway and even after attempting to suction by respiratory therapy the secretions remained. The patient was then beginning to have bouts of hypoxia with her pulse ox dropping down to 75 to 80% with a normal waveform. Therefore at this time as patient has a history of restrictive lung disease is having bouts of hypoxia is at high risk for mucous plugging based on her persistent secretions and has a secondary pneumonia I do not feel that she would do well at home as her symptoms are most likely worsen over the next few days. Therefore the hospitalist was contacted and they do agree to accept the patient for continued care. Because of her history of restrictive lung disease and pneumonia on x-ray they do recommend starting her on antibiotics just to ensure this is not a secondary bacterial infection. The plan of care was discussed with the patient and family and they are agreeable to it and therefore should be admitted for continued care History & Record Review Discussion w/independent historian: Patient and Family Radiography Diagnostic Testing: Clinical Impression(s) from Imaging Studies Chest X-Ray 08/18/24 05:03 IMPRESSION: Probable pulmonary emphysema. New patchy opacity medial right lung base, concerning for right lower lobe pneumonia. Recommend continued radiologic follow-up to document resolution. Some coarse interstitial markings at the left lung base are relatively similar to the 2022 study and could represent a component of chronic interstitial lung disease. Reading Location: [facility] Chest x-ray as interpreted by the emergency medicine physician reveals an opacity in the right lower lung field concerning for developing pneumonia Management Discussion w/another healthcare provider: Hospitalist Discharge Plan Triage Chief Complaint: Cough ED Provider: Christopher Jolley Dx/Rx/DC Orders Clinical Impression: Influenza A, Right lower lobe pneumonia, Hypoxia, History of restrictive pulmonary disease, Scleroderma Prescriptions: No Action albuterol sulfate 2.5 MG/3 ML solution for nebulization 2.5 mg inhalation Q6HWA.RT prednisone 5 MG tablet 4 mg PO DAILY albuterol sulfate [Ventolin HFA] 1 INHALER inhaler 1 - 2 puff inhalation Q6H PRN PRN (Reason: Shortness Of Breath) Centrum Silver 1 EACH tablet 1 ea PO DAILY trazodone 50 mg Tablet 50 mg PO QHS PRN (Reason: depression) levothyroxine 100 mcg Tablet 100 mcg PO DAILY cholecalciferol (vitamin D3) 100 mcg (4,000 unit) Capsule 100 mcg PO QODAY Arthrozene 1 cap PO/SL DAILY acetaminophen 500 mg Tablet 1,000 mg PO TID Qty: 100 0RF Rx Instructions: Do not take more than 3000 mg Tylenol in a 24-hour period. ropinirole 1 mg tablet 1 mg PO BID rosuvastatin 20 mg tablet 20 mg PO DAILY paroxetine HCl [Paxil] 10 mg tablet 10 mg PO DAILY Primary Care Provider: Evan De Referrals: Evan De MD [Primary Care Provider] - Print Language: Bur[place]ian Disposition Disposition: Acute Care Hospital [facility]
[2024-08-18 07:37] LABS: Anion Gap 6 (5-15); BUN 10 mg/dL (7-18); BUN/Creat Ratio 34.7 RATIO (10-20); Calcium,Total 8.9 mg/dL (8.5-10.1); Chloride 92 mmol/L (98-107); Creatinine, Serum 0.29 mg/dL (0.55-1.02); EST Glomerular Filtration Rate 252 mL/min (>60); Est Glom Filt Rate - Afr Amer 305 mL/min (>60); Estimated Creatinine Clearance 125.71 ml/min; Glucose 85 mg/dL (74-106); Magnesium 2.1 mg/dL (1.6-2.6); Potassium 3.9 mmol/L (3.5-5.1); Sodium Level 135 mmol/L (136-145)
[2024-08-18 07:42] LABS: Absolute Lymphocyte Count 0.43 X10^3/uL (0.83-4.51); Absolute Neutrophil Count 5.3 X10^3/uL (2.0-7.7); Basophil# 0.01 X10^3/uL; Basophil% 0.2 % (0-1); Eosinophil# 0.01 X10^3/uL; Eosinophils% 0.2 % (0-5); Hematocrit 35.4 % (37-47); Hemoglobin 10.9 g/dL (12.0-15.0); Lymphocyte # 0.43 X10^3/ul (0.83-4.51); Lymphocyte % 7.2 % (19-41); Mean Corp Hgb Conc 30.8 g/dL (32-36); Mean Corpuscular Hgb 29.5 pg (27.0-32.0); Mean Corpuscular Volume 95.7 fL (81-99); Mean Platelet Vol. 10.3 fl (6.2-12.0); Monocyte# 0.24 X10^3/uL; NRBC Flagged by Analyzer 0 % (0-5); Neutrophil % 88.2 % (47-70); POSITIVE DIFFERENTIAL YES; Platelet Count 165 K/mm3 (150-450); RBC Distribution Width CV 14.9 % (11.6-14.6); RBC Distribution Width SD 52.5 fl (35.1-43.9)
[2024-08-18] MEDS: levoFLOXacin IV 500 MG/100 ML BAG 100 MG IV (07:44)
[2024-08-18] MEDS: Enoxaparin 40 MG/0.4 ML Syringe SC (11:24)
[2024-08-18] MEDS: Ensure Plus High Protein 120 ML LIQUID PO ×2 (11:32→13:18)
[2024-08-18] MEDS: Pramipexole Di-HCl 0.5 MG Tablet PO ×2 (13:18→20:56)
[2024-08-18] MEDS: Albuterol 2.5 MG/3 ML VIAL.NEB. INHALATION ×2 (14:13→19:30)
--- NOTE | 2024-08-18 17:01 | HP.PCM.HOS_ITS ---
HPI - General General Date of Admission: 08/18/24 HPI Narrative TENNILLE SULLIVAN, is a 59 F who presents to the hospital with increasing shortness of breath over the last 3 to 5 days. She started having increasing work of breathing and a cough. She presented today because of increased shortness of breath and was found to have influenza A. Chest x-ray also demonstrates right lower lobe consolidation. Her care is complicated by the fact that she has scleroderma and restrictive lung disease. Denies any fevers or chills currently and had a family member who was recently sick with influenza. She does not wear oxygen at home at baseline. REPLACED BY [facility] Medical History Wears glasses Broken teeth Depression Anxiety Hypoglycemia History of steroid therapy Arthritis High cholesterol Restless legs Neck pain Scleroderma Polymyositis Difficulty swallowing Restrictive lung disease Non-smoker Asthma History of echocardiogram History of stress test History of CHF (congestive heart failure) Home Medications ?Medication ?Instructions ?Recorded ?Last Taken ?Type albuterol sulfate 2.5 mg/3 mL 2.5 mg inhalation Q6HWA. RT asthma 09/23/13 02/04/21 History (0.083 %) solution for nebulization albuterol sulfate 90 mcg/actuation 1 - 2 puff inhalati on Q6H PRN PRN 09/23/13 02/04/21 History aerosol inhaler (Ventolin HFA) Shortness Of Breath [id number] acid 0.4 1 ea PO DAILY 09/23/1310/22 History mg-lycopene 300 mcg-lutein 250 mcg tablet (Centrum Silver) prednisone 5 mg tablet 4 mg PO DAILY 09/23/1302/04 History cholecalciferol (vitamin D3) 100 100 mcg PO QODAY supp lement 01/12/21 02/04/21 History mcg (4,000 unit) capsule levothyroxine 100 mcg tablet 100 mcg PO DAILY thyroid 01/12/21 02/04/21 History trazodone 50 mg tablet 50 mg PO QHS PRN depression 01/12/21 02/04/21 History Arthrozene 1 cap PO/SL DAILY 01/28/21 0 02/04/21 History acetaminophen 500 mg tablet 1,000 mg (2 x 500 mg) PO T ID #100 02/06/21 Unknown Rx tabs paroxetine HCl 10 mg tablet (Paxil) 10 mg PO DAILY Unknown History ropinirole 1 mg tablet 1 mg PO BID 08/18/24 Unknown History rosuvastatin 20 mg tablet 20 mg PO DAILY 08/18/24 Unkn own History Allergy/AdvReac Type Severity Reaction Status Date / Time aspirin Allergy Unknown Verified 08/18/24 04:04 ceftazidime pentahydrate Allergy Hives Verified 08/18/24 04:04 (From Fortaz) clindamycin Allergy Rash Verified 08/18/24 04:04 Penicillins Allergy Hives Verified 08/18/24 04:04 povidone-iodine (From Allergy Itching Verified 08/18/24 04:04 Betadine) soap (From Betadine) Allergy Itching Verified 08/18/24 04:04 erythromycin base AdvReac Diarrhea Verified 08/18/24 04:04 (Erythromycin Base) Family History (Updated 08/18/24 @ 17:[address] Chele Quesada MD) Other Heart disease Surgical History History of hysterectomy History of right hip replacement History of tubal ligation History of vascular surgery Status post right knee replacement Social History Smoking Status: Never smoker ROS Constitutional Constitutional: Reports chills and fatigue; Denies fever(s) or malaise Eyes Eyes: Denies blurry vision ENT HEENT: Denies headache(s) or nasal discharge Cardiovascular Cardiovascular: Denies chest pain, dyspnea on exertion or syncope Respiratory/Chest Respiratory/Chest: Reports cough, shortness of breath at rest and shortness of breath with exertion Gastrointestinal Gastrointestinal: Denies constipation, diarrhea, nausea or vomiting Genitourinary Genitourinary: Denies dysuria Neurologic Neurologic: Denies focal weakness, numbness or tremor(s) Psychiatric Psychiatric: Denies anxiety or depression Vital Signs Vital Signs Vital Signs: 08/18/24 04:05 08/18/24 04:05 08/18/24 04:07 Temperature 97.5 F L 97.5 F L Temperature Source Oral Oral Pulse Rate 74 68 Pulse Strength Respiratory Rate 20 H 20 H Respiratory Effort Short of Breath Respiratory Depth Shallow Respiratory Pattern Tachypnea Blood Pressure 124/56 H 124/56 H Blood Pressure Mean 78 78 Blood Pressure Source Blood Pressure Position Blood Pressure Location Pulse Ox 97 98 Oxygen Delivery Method Room Air Room Air Room Air Oxygen Flow Rate (L/min) 08/18/24 05:27 08/18/24 05:32 08/18/24 06:00 Temperature 97.8 F 98.0 F Temperature Source Oral Oral Pulse Rate 71 73 71 Pulse Strength Respiratory Rate 24 H 12 18 Respiratory Effort Respiratory Depth Respiratory Pattern Tachypnea Blood Pressure 87/54 L 101/54 L Blood Pressure Mean 65 69 Blood Pressure Source Blood Pressure Position Blood Pressure Location Pulse Ox 88 94 Oxygen Delivery Method Room Air Room Air Oxygen Flow Rate (L/min) 08/18/24 06:40 08/18/24 06:45 08/18/24 06:47 Temperature 98.0 F Temperature Source Pulse Rate 74 Pulse Strength Respiratory Rate 18 Respiratory Effort Respiratory Depth Respiratory Pattern Blood Pressure 101/54 L Blood Pressure Mean 69 Blood Pressure Source Blood Pressure Position Blood Pressure Location Pulse Ox 85 97 98 Oxygen Delivery Method Room Air Nasal Cannula Oxygen Flow Rate (L/min) 2 08/18/24 07:00 08/18/24 08:00 08/18/24 08:54 Temperature 98.0 F 97.8 F 98.6 F Temperature Source Oral Temporal Temporal Pulse Rate 70 79 79 Pulse Strength Respiratory Rate 18 18 18 Respiratory Effort Respiratory Depth Respiratory Pattern Blood Pressure 121/75 H 102/67 90/42 L Blood Pressure Mean 90 78 58 Blood Pressure Source Blood Pressure Position Blood Pressure Location Pulse Ox 99 97 97 Oxygen Delivery Method Nasal Cannula Nasal Cannula Nasal Cannula Oxygen Flow Rate (L/min) 2 2 2 08/18/24 08:55 08/18/24 08:58 08/18/24 09:03 Temperature 98.6 F Temperature Source Temporal Pulse Rate 79 Pulse Strength Normal (2+) Respiratory Rate 18 Respiratory Effort Normal Short of Breath Respiratory Depth Normal Respiratory Pattern Normal Blood Pressure 90/42 L Blood Pressure Mean 58 Blood Pressure Source Monitor Blood Pressure Position Semi-Fowlers Blood Pressure Location Left Arm Pulse Ox 97 Oxygen Delivery Method Nasal Cannula Nasal Cannula Oxygen Flow Rate (L/min) 2 2 08/18/24 10:55 08/18/24 10:55 08/18/24 13:12 Temperature 98.6 F 98.6 F Temperature Source Temporal Temporal Pulse Rate 77 70 Pulse Strength Respiratory Rate 18 18 Respiratory Effort Normal Short of Breath Respiratory Depth Normal Respiratory Pattern Normal Blood Pressure 99/77 97/77 Blood Pressure Mean 84 83 Blood Pressure Source Monitor Blood Pressure Position Semi-Fowlers Blood Pressure Location Left Arm Pulse Ox 97 97 Oxygen Delivery Method Nasal Cannula Nasal Cannula Nasal Cannula Oxygen Flow Rate (L/min) 2 2 2 08/18/24 14:15 08/18/24 14:15 Temperature Temperature Source Pulse Rate 67 Pulse Strength Respiratory Rate 22 H Respiratory Effort Respiratory Depth Respiratory Pattern Tachypnea Blood Pressure Blood Pressure Mean Blood Pressure Source Blood Pressure Position Blood Pressure Location Pulse Ox 94 Oxygen Delivery Method Nasal Cannula Oxygen Flow Rate (L/min) 2 Weight Weight: 89 lb 0.01 oz Body Mass Index (BMI) 16.2 Physical Exam Narrative General: Alert, Oriented x3, Cooperative, No apparent distress HEENT: Atraumatic, PERRLA, EOMI, Normocephalic Oral: Moist Mucosa Neck: Supple, No JVD Lungs: Diminished, Normal air movement, rhonchi, No wheeze, No rales Cardiovascular: Regular rate, Regular Rhythm, Normal S1, Normal S2, No murmurs Abdomen: Soft, Non Tender, Non-Distended, No Hepato-splenomegaly Extremities: No edema, Capillary Refill Less than 3 Seconds Skin: No rashes, No breakdown Musculoskeletal: Upper extremity contractures chronic Neurological: No focal neurological deficits, contractures and movements at baseline Psych/Mental Status: Normal Affect, Appropriate Results Medical Records Data Medical Nutrition Assessment Dietitian: Malnutrition Criteria Met Start: 08/18/24 12:34 Freq: Status: Active Protocol: Document 08/18/24 14:36 SB (Rec: 08/18/24 14:36 [id number]) Nutrition Malnutrition Evidence of Yes Malnutrition Exists Malnutrition (severe Acute Illness/Injury ): Evidenced By Suboptimal Energy Intake (Severe),Physical Changes ( Severe) Clinical Problem Swallowing Difficulty Etiology likely related to scleroderma dx Signs/Symptoms as evidenced by need for modified diet and limited mandible extension. Status Active Problem Acute Disease or Injury Related Malnutrition Etiology severe related to inadequate oral intake Signs/Symptoms as evidenced by PO meeting <50% of estimated nutrition needs x 3-5 days and muscle/fat wasting in clavicle, temples, and orbital areas. Status Active Problem Recommendation Dietitian Continue regular diet per CHIEF ULTRASOUND TECHNOLOGIST texture/consistency Recommendations/ recommendations. Changes Continue 120ml ensure plus high protein 4x daily with medpass, prefers chocolate or vanilla. Will order fortified pudding TID with meals. Will monitor weight trends. Recommend appetite stimulant to increase PO intake. Reviewed and approved by Charlotte Snyder RD, LD. Lab / Micro Data 08/18/24 07:35 08/18/24 07:00 Labs: Laboratory Results - last 24 hr 08/18/24 07:00: WBC Cancelled, Corrected WBC Cancelled, RBC Cancelled, Hgb Cancelled, Hct Cancelled, MCV Cancelled, MCH Cancelled, MCHC Cancelled, RDW Std Deviation Cancelled, RDW Coeff of Himanshu Cancelled, Plt Count Cancelled, MPV Cancelled, Immature Gran % (Auto) Cancelled, Neut % (Auto) Cancelled, Lymph % (Auto) Cancelled, Ida % (Auto) Cancelled, Eos % (Auto) Cancelled, Baso % (Auto) Cancelled, Absolute Neuts (auto) Cancelled, Absolute Lymphs (auto) Cancelled, Total Counted Cancelled, Neutrophils % (Manual) Cancelled, Band Neutrophils % Cancelled, Lymphocytes % (Manual) Cancelled, Monocytes % (Manual) Cancelled, Eosinophils % (Manual) Cancelled, Basophils % (Manual) Cancelled, Metamyelocytes % Cancelled, Myelocytes % Cancelled, Promyelocytes % Cancelled, Blast Cells % Cancelled, Plasma Cell % (Manual) Cancelled, Other Cells % Cancelled, Nucleated RBC % Cancelled, Nucleated RBCs/100 WBC Cancelled, Differential Comment Cancelled, Diff Path Review Cancelled, Hypersegmented Neuts Cancelled, Atypical Lymphocytes Cancelled, Reactive Lymphocytes Cancelled, Smudge Cells Cancelled, Toxic Granulation Cancelled, Toxic Vacuolation Cancelled, Dohle Bodies Cancelled, Maximo Rods Cancelled, Platelet Estimate Cancelled, Plt Morphology Comment Cancelled, RBC Morphology Cancelled 08/18/24 07:00: RBC Morphology Cancelled, Polychromasia Cancelled, Hypochromasia Cancelled, Basophilic Stippling Cancelled, Anisocytosis Cancelled, Microcytosis Cancelled, Macrocytosis Cancelled, Spherocytes Cancelled, Sickle Cells Cancelled, Target Cells Cancelled, Tear Drop Cells Cancelled, Ovalocytes Cancelled, Stomatocytes Cancelled, [place] Bodies Cancelled, [place] Cells Cancelled, Bite Cells Cancelled, Crenated Cell Cancelled, Acanthocytes (Spur) Cancelled, Rouleaux Cancelled, Schistocytes Cancelled, Sodium 135 L, Potassium 3.9, Chloride 92 L, Carbon Dioxide 37.0 H, Anion Gap 6, BUN 10, Creatinine 0.29 L, Estim Creat Clear Calc 125.71, Est GFR (MDRD) Af Amer 305, Est GFR (MDRD) Non-Af 252, BUN/Creatinine Ratio 34.7 H, Glucose 85, Calcium 8.9, Magnesium 2.1 08/18/24 07:35: WBC 6.0, RBC 3.70 L, Hgb 10.9 L, Hct 35.4 L, MCV 95.7, MCH 29.5, MCHC 30.8 L, RDW Std Deviation 52.5 H, RDW Coeff of Himanshu 14.9 H, Plt Count 165, MPV 10.3, Immature Gran % (Auto) 0.200, Neut % (Auto) 88.2 H, Lymph % (Auto) 7.2 L, Ida % (Auto) 4.0, Eos % (Auto) 0.2, Baso % (Auto) 0.2, Absolute Neuts (auto) 5.3, Absolute Lymphs (auto) 0.43 L, Nucleated RBC % 0 Micro: Microbiology 08/18/24 04:59 Mucosa - Nose SARS-CoV-2, Influenza & RSV (PCR) - Final Influenzae A Imaging Radiology Impression Chest X-Ray 08/18/24 05:03 IMPRESSION: Probable pulmonary emphysema. New patchy opacity medial right lung base, concerning for right lower lobe pneumonia. Recommend continued radiologic follow-up to document resolution. Some coarse interstitial markings at the left lung base are relatively similar to the 2022 study and could represent a component of chronic interstitial lung disease. [facility] Assessment & Plan Assessment/Plan (1) Hypoxia: (2) Influenza A: (3) Right lower lobe pneumonia: PLAN: Plan 1. Acute hypoxia secondary to influenza A in the setting of right lower lobe pneumonia complicated by restrictive lung disease due to scleroderma ? Continue with steroids ? Continue with antibiotics will obtain a sputum culture ? She is outside the window for Tamiflu though she did get a dose in the ER ? Continue with inhalers 2. Hypothyroidism ? Stable ? Continue with Synthroid 3. Anxiety/depression ? Stable ? Continue with her home medications DVT: Lovenox 75 minutes was spent on direct patient care, including documentation as well as chart review and collaboration with colleagues Charges/Coding Visit Charges Inpatient E&M: 65775 Init Hosp L3
[2024-08-18] MEDS: Acetaminophen 500 MG Tablet 1000 MG PO (20:56)
[2024-08-18] MEDS: Atorvastatin Calcium 40 MG Tablet PO (20:56)
[2024-08-18] MEDS: PARoxetine 10 MG Tablet PO (20:56)
[2024-08-19 03:00] VITALS: BP 108/56; PULSE 61; RESP 16; TEMP 35.8; O2SAT 96
--- NOTE | 2024-08-19 03:59 | CPS ---
Patient was also NT suctioned at this time.
[2024-08-19 05:07] LABS: Absolute Neutrophil Count 2.2 X10^3/uL (2.0-7.7); Hemoglobin 11.7 g/dL (12.0-15.0); Lymphocyte % 11.3 % (19-41); Mean Corpuscular Hgb 28.6 pg (27.0-32.0); Mean Corpuscular Volume 95.4 fL (81-99); Mean Platelet Vol. 11.5 fl (6.2-12.0); Monocyte# 0.16 X10^3/uL; NRBC Flagged by Analyzer 0 % (0-5); Neutrophil # 2.18 X10^3/uL (2.7-7.7); Neutrophil % 82.3 % (47-70); POSITIVE DIFFERENTIAL YES; Platelet Count 159 K/mm3 (150-450); RBC Distribution Width SD 52.6 fl (35.1-43.9); Red Blood Count 4.09 M/mm3 (4.2-5.4); White Blood Count 2.7 K/mm3 (4.4-11.0)
[2024-08-19] MEDS: Levothyroxine 100 MCG Tablet PO (05:36)
[2024-08-19 05:41] LABS: Anion Gap 7 (5-15); BUN 14 mg/dL (7-18); BUN/Creat Ratio 53.2 RATIO (10-20); Calcium,Total 9.2 mg/dL (8.5-10.1); Chloride 97 mmol/L (98-107); Creatinine, Serum 0.26 mg/dL (0.55-1.02); EST Glomerular Filtration Rate 280 mL/min (>60); Est Glom Filt Rate - Afr Amer 339 mL/min (>60); Estimated Creatinine Clearance 146.64 ml/min; Glucose 132 mg/dL (74-106); Potassium 4.2 mmol/L (3.5-5.1); Sodium Level 137 mmol/L (136-145)
[2024-08-19] MEDS: Albuterol 2.5 MG/3 ML VIAL.NEB. INHALATION ×3 (06:36→20:37)
[2024-08-19 06:37] VITALS: PULSE 72; RESP 20; O2SAT 94
[2024-08-19] MEDS: Ensure Plus High Protein 120 ML LIQUID PO ×2 (08:33→20:21)
[2024-08-19] MEDS: Enoxaparin 40 MG/0.4 ML Syringe SC (08:34)
[2024-08-19 09:00] VITALS: BP 102/48; PULSE 70; RESP 18; TEMP 36.8; O2SAT 94
--- NOTE | 2024-08-19 10:22 | PCM.PN.HOSP ---
Subjective Subjective Breathing is improved, she says that she has produced significant amount of mucus and is currently on room air Objective Data Objective Data Vital Signs: Vital Signs Temp Pulse Resp BP Pulse Ox O2 Del Method O2 Flow Rate 98.3 F 70 18 102/48 L 94 Room Air 2 08/19/24 09:00 08/19/24 09:00 08/19/24 09:00 08/19/24 09:00 08/19/24 09:00 08/19/24 09:00 08/19/24 07:25 Oxygen Flow Rate (L/min) 2 Oxygen Delivery Method Room Air Weight: 89 lb 0.01 oz Body Mass Index (BMI) 16.2 Intake & Output: Intake and Output for Last 24 Hours 08/18/24 08/19/24 08/20/24 03:59 03:59 03:59 Intake Total 1540 / 1540 Output Total 0 / 0 Balance 1540 / 1540 Medical Nutrition Assessment Dietitian: Malnutrition Criteria Met Start: 08/18/24 12:34 Freq: Status: Active Protocol: Document 08/18/24 14:36 SB (Rec: 08/18/24 14:36 SB [id number]) Nutrition Malnutrition Evidence of Yes Malnutrition Exists Malnutrition (severe Acute Illness/Injury ): Evidenced By Suboptimal Energy Intake (Severe),Physical Changes ( Severe) Clinical Problem Swallowing Difficulty Etiology likely related to scleroderma dx Signs/Symptoms as evidenced by need for modified diet and limited mandible extension. Status Active Problem Acute Disease or Injury Related Malnutrition Etiology severe related to inadequate oral intake Signs/Symptoms as evidenced by PO meeting <50% of estimated nutrition needs x 3-5 days and muscle/fat wasting in clavicle, temples, and orbital areas. Status Active Problem Recommendation Dietitian Continue regular diet per MEDIA ACCOUNT EXECUTIVE texture/consistency Recommendations/ recommendations. Changes Continue 120ml ensure plus high protein 4x daily with medpass, prefers chocolate or vanilla. Will order fortified pudding TID with meals. Will monitor weight trends. Recommend appetite stimulant to increase PO intake. Reviewed and approved by Charlotte Snyder RD, LD. Lab / Micro Data 08/19/24 04:13 08/19/24 04:13 Labs: Laboratory Results - last 24 hr 08/19/24 04:13: WBC 2.7 L, RBC 4.09 L, Hgb 11.7 L, Hct 39.0, MCV 95.4, MCH 28.6, MCHC 30.0 L, RDW Std Deviation 52.6 H, RDW Coeff of Himanshu 15.0 H, Plt Count 159, MPV 11.5, Immature Gran % (Auto) 0.400, Neut % (Auto) 82.3 H, Lymph % (Auto) 11.3 L, Wheeler % (Auto) 6.0, Eos % (Auto) 0.0, Baso % (Auto) 0.0, Absolute Neuts (auto) 2.2, Absolute Lymphs (auto) 0.30 L, Nucleated RBC % 0, Sodium 137, Potassium 4.2, Chloride 97 L, Carbon Dioxide 33.0 H, Anion Gap 7, BUN 14, Creatinine 0.26 L, Estim Creat Clear Calc 146.64, Est GFR (MDRD) Af Amer 339, Est GFR (MDRD) Non-Af 280, BUN/Creatinine Ratio 53.2 H, Glucose 132 H, Calcium 9.2 Micro: Microbiology 08/18/24 04:59 Mucosa - Nose SARS-CoV-2, Influenza & RSV (PCR) - Final Influenzae A Physical Exam Narrative General: Alert, Oriented x3, Cooperative, No apparent distress HEENT: Atraumatic, PERRLA, EOMI, Normocephalic Oral: Moist Mucosa Neck: Supple, No JVD Lungs: Diminished, Normal air movement, rhonchi?improving, No wheeze, No rales Cardiovascular: Regular rate, Regular Rhythm, Normal S1, Normal S2, No murmurs Abdomen: Soft, Non Tender, Non-Distended, No Hepato-splenomegaly Extremities: No edema, Capillary Refill Less than 3 Seconds Skin: No rashes, No breakdown Musculoskeletal: Upper extremity contractures chronic Neurological: No focal neurological deficits, contractures and movements at baseline Psych/Mental Status: Normal Affect, Appropriate Assessment & Plan Assessment/Plan (1) Hypoxia: (2) Influenza A: (3) Right lower lobe pneumonia: PLAN: Plan 1. Acute hypoxia secondary to influenza A in the setting of right lower lobe pneumonia complicated by restrictive lung disease due to scleroderma ? Continue with steroids ? Continue with antibiotics, sputum culture pending ? She is outside the window for Tamiflu though she did get a dose in the ER ? Continue with inhalers ? Hypoxia appears to have been resolved 2. Hypothyroidism ? Stable ? Continue with Synthroid 3. Anxiety/depression ? Stable ? Continue with her home medications DVT: Lovenox Charges/Coding Visit Charges Inpatient E&M: 00258 Subs Hosp L2
[2024-08-19 13:45] VITALS: PULSE 64; RESP 20
[2024-08-19] MEDS: Pramipexole Di-HCl 0.5 MG Tablet PO ×2 (14:39→20:21)
[2024-08-19 15:00] VITALS: BP 106/62; PULSE 78; RESP 18; TEMP 37.2; O2SAT 94
[2024-08-19] MEDS: Atorvastatin Calcium 40 MG Tablet PO (20:21)
[2024-08-19] MEDS: traZODone 50 MG Tablet PO (20:21)
[2024-08-19] MEDS: PARoxetine 10 MG Tablet PO (20:21)
[2024-08-19 21:00] VITALS: BP 124/64; PULSE 63; RESP 16; TEMP 36.6; O2SAT 94
[2024-08-20] VITALS (8 sets, daily range): BP systolic 112–118; BP diastolic 55–71; PULSE 56–89; RESP 16–22; TEMP 36.2–36.7; O2SAT 89–98
[2024-08-20] MEDS: Levothyroxine 100 MCG Tablet PO (04:49)
[2024-08-20] MEDS: levoFLOXacin IV 500 MG/100 ML BAG 100 MG IV (04:50)
[2024-08-20] MEDS: Zinc Sulfate 50 mg zinc (220 mg) ORAL capsule PO ×3 (04:55→21:24)
[2024-08-20] MEDS: Albuterol 2.5 MG/3 ML VIAL.NEB. INHALATION ×3 (06:58→19:00)
[2024-08-20 07:26] LABS: Absolute Lymphocyte Count 0.28 X10^3/uL (0.83-4.51); Absolute Neutrophil Count 3.1 X10^3/uL (2.0-7.7); Hematocrit 37.3 % (37-47); Hemoglobin 11.2 g/dL (12.0-15.0); Lymphocyte # 0.28 X10^3/ul (0.83-4.51); Lymphocyte % 7.5 % (19-41); Mean Corpuscular Hgb 28.1 pg (27.0-32.0); Mean Corpuscular Volume 93.7 fL (81-99); Mean Platelet Vol. 10.8 fl (6.2-12.0); Monocyte# 0.33 X10^3/uL; Monocyte% 8.9 % (0-10); NRBC Flagged by Analyzer 0 % (0-5); Neutrophil % 83.3 % (47-70); POSITIVE DIFFERENTIAL YES; Platelet Count 214 K/mm3 (150-450); RBC Distribution Width CV 15.5 % (11.6-14.6); RBC Distribution Width SD 52.7 fl (35.1-43.9); Red Blood Count 3.98 M/mm3 (4.2-5.4); White Blood Count 3.7 K/mm3 (4.4-11.0)
[2024-08-20 08:40] LABS: Anion Gap 4 (5-15); BUN 17 mg/dL (7-18); BUN/Creat Ratio 56.9 RATIO (10-20); Calcium,Total 9.2 mg/dL (8.5-10.1); Chloride 102 mmol/L (98-107); EST Glomerular Filtration Rate 242 mL/min (>60); Est Glom Filt Rate - Afr Amer 292 mL/min (>60); Estimated Creatinine Clearance 127.09 ml/min; Glucose 126 mg/dL (74-106); Potassium 3.7 mmol/L (3.5-5.1); Sodium Level 138 mmol/L (136-145)
[2024-08-20] MEDS: Ensure Plus High Protein 120 ML LIQUID PO ×3 (09:34→18:57)
[2024-08-20] MEDS: Enoxaparin 40 MG/0.4 ML Syringe SC (09:35)
[2024-08-20] MEDS: Pramipexole Di-HCl 0.5 MG Tablet PO ×2 (09:36→21:24)
[2024-08-20] MEDS: Ascorbic Acid 500 MG Tablet 1000 MG PO ×2 (09:41→18:57)
[2024-08-20] MEDS: Cholecalciferol (Vit D3) 125 MCG CAPSULE (5,000 UNITS) PO (09:42)
--- NOTE | 2024-08-20 10:01 | PN.HOSP_ITS ---
Subjective Subjective Doing well, no issues overnight Objective Data Objective Data Vital Signs: Vital Signs Temp Pulse Resp BP Pulse Ox O2 Del Method O2 Flow Rate 97.6 F L 68 20 H 112/71 95 Room Air 2 08/20/24 03:00 08/20/24 06:59 08/20/24 06:59 08/20/24 03:00 08/20/24 06:59 08/20/24 06:59 08/19/24 03:00 Oxygen Flow Rate (L/min) 2 Oxygen Delivery Method Room Air Weight: 89 lb 0.01 oz Body Mass Index (BMI) 16.2 Intake & Output: Intake and Output for Last 24 Hours 08/19/24 08/20/24 08/21/24 03:59 03:59 03:59 Intake Total 1540 / 1540 1040 / 1040 100 / 100 Output Total 0 / 0 300 / 300 Balance 1540 / 1540 740 / 740 100 / 100 Medical Nutrition Assessment Dietitian: Malnutrition Criteria Met Start: 08/18/24 12:34 Freq: Status: Active Protocol: Document 08/18/24 14:36 SB (Rec: 08/18/24 14:36 SB [id number]) Nutrition Malnutrition Evidence of Yes Malnutrition Exists Malnutrition (severe Acute Illness/Injury ): Evidenced By Suboptimal Energy Intake (Severe),Physical Changes ( Severe) Clinical Problem Swallowing Difficulty Etiology likely related to scleroderma dx Signs/Symptoms as evidenced by need for modified diet and limited mandible extension. Status Active Problem Acute Disease or Injury Related Malnutrition Etiology severe related to inadequate oral intake Signs/Symptoms as evidenced by PO meeting <50% of estimated nutrition needs x 3-5 days and muscle/fat wasting in clavicle, temples, and orbital areas. Status Active Problem Recommendation Dietitian Continue regular diet per WEAVING PROFESSOR texture/consistency Recommendations/ recommendations. Changes Continue 120ml ensure plus high protein 4x daily with medpass, prefers chocolate or vanilla. Will order fortified pudding TID with meals. Will monitor weight trends. Recommend appetite stimulant to increase PO intake. Reviewed and approved by Charlotte Snyder RD, LD. Lab / Micro Data 08/20/24 06:26 08/20/24 06:26 Labs: Laboratory Results - last 24 hr 08/20/24 06:26: WBC 3.7 L, RBC 3.98 L, Hgb 11.2 L, Hct 37.3, MCV 93.7, MCH 28.1, MCHC 30.0 L, RDW Std Deviation 52.7 H, RDW Coeff of Himanshu 15.5 H, Plt Count 214, MPV 10.8, Immature Gran % (Auto) 0.300, Neut % (Auto) 83.3 H, Lymph % (Auto) 7.5 L, [place] % (Auto) 8.9, Eos % (Auto) 0.0, Baso % (Auto) 0.0, Absolute Neuts (auto) 3.1, Absolute Lymphs (auto) 0.28 L, Nucleated RBC % 0, Sodium 138, Potassium 3.7, Chloride 102, Carbon Dioxide 33.0 H, Anion Gap 4 L, BUN 17, Creatinine 0.30 L, Estim Creat Clear Calc 127.09, Est GFR (MDRD) Af Amer 292, Est GFR (MDRD) Non-Af 242, BUN/Creatinine Ratio 56.9 H, Glucose 126 H, Calcium 9.2 Micro: Microbiology 08/18/24 04:59 Mucosa - Nose SARS-CoV-2, Influenza & RSV (PCR) - Final Influenzae A Physical Exam Narrative General: Alert, Oriented x3, Cooperative, No apparent distress HEENT: Atraumatic, PERRLA, EOMI, Normocephalic Oral: Moist Mucosa Neck: Supple, No JVD Lungs: Diminished, Normal air movement, no rhonchi, No wheeze, No rales Cardiovascular: Regular rate, Regular Rhythm, Normal S1, Normal S2, No murmurs Abdomen: Soft, Non Tender, Non-Distended, No Hepato-splenomegaly Extremities: No edema, Capillary Refill Less than 3 Seconds Skin: No rashes, No breakdown Musculoskeletal: Upper extremity contractures chronic Neurological: No focal neurological deficits, contractures and movements at baseline Psych/Mental Status: Normal Affect, Appropriate Assessment & Plan Assessment/Plan (1) Hypoxia: (2) Influenza A: (3) Right lower lobe pneumonia: PLAN: Plan 1. Acute hypoxia secondary to influenza A in the setting of right lower lobe pneumonia complicated by restrictive lung disease due to scleroderma ? Continue with steroids ? Continue with antibiotics, sputum culture pending ? She is outside the window for Tamiflu though she did get a dose in the ER ? Continue with inhalers ? Hypoxia appears to have been resolved, will obtain an ambulatory pulse ox 2. Hypothyroidism ? Stable ? Continue with Synthroid 3. Anxiety/depression ? Stable ? Continue with her home medications DVT: Lovenox Charges/Coding Visit Charges Inpatient E&M: 09698 Subs Hosp L2
--- NOTE | 2024-08-20 11:48 | CASEMGMT ---
JAYLA SIMON Assessment: Face to Face with pt for initial transition planning/care coordination assessment. JAYLA SIMON introduced self and role at [facility], pt voices understanding and consents to assessment. Pt is A&O x4 and answers all questions appropriately at this time. Pt sitting up in chair in no distress. Care providers, pharmacy, and demographics verified/updated. Strata: 2 Admitting Dx: Flu A PCP: Kenisha Specialists: [place], [facility]; RA Edy; Iftikhar, [employer] Preferred Pharmacy: [facility] Insurance: [employer] Prescription Benefit: yes LNOK: DaughterElaine Living Arrangements: Pt lives alone in a 1 level apartment with no steps to enter. Facility is for individuals with disabilities and a HH aide is available for Pt to call if needed. ADLs: Pt is I with ADLs, needs some assistance with IADls. Daughter helps out a lot, grandson comes and stays with her every other weekend. Transportation: Pt daughter provides transportation. DME: walker, wheelchair, lift chair, O2 through [facility] - 2L continuous, accessible shower with shower bench. HHC/SNF: Previously at [facility]. Had HHC but does not recall what agency. Pt states no concerns with going home at time of dc. Pt recently had shoulder surgery, has script for OP therapy. Denies HHC services, states she has a script from her doctor to get HHC but is not interested at this time. Pt states no further concerns/needs. CM to follow. Advised pt to ask CM if any further question/concerns/needs arise, voices understanding. Pt Goal: Home Plan: Home, follow for changes in O2. Ghazal DICKERSON CM
[2024-08-20] MEDS: 0.9% Saline Lock 10 ML Syringe IV ×2 (13:56→21:23)
[2024-08-20] MEDS: PARoxetine 10 MG Tablet PO (21:24)
[2024-08-20] MEDS: Atorvastatin Calcium 40 MG Tablet PO (21:24)
[2024-08-21 03:21] VITALS: BP 126/61; PULSE 55; RESP 18; TEMP 36.5; O2SAT 96
[2024-08-21] MEDS: 0.9% Saline Lock 10 ML Syringe IV ×3 (06:09→14:20)
[2024-08-21] MEDS: Zinc Sulfate 50 mg zinc (220 mg) ORAL capsule PO (06:10)
[2024-08-21] MEDS: Levothyroxine 100 MCG Tablet PO (06:10)
[2024-08-21] MEDS: Albuterol 2.5 MG/3 ML VIAL.NEB. INHALATION ×2 (07:14→13:18)
[2024-08-21 07:35] VITALS: PULSE 71; RESP 17
[2024-08-21 07:50] VITALS: O2SAT 96
[2024-08-21] MEDS: Ondansetron 4 MG/2 ML Vial IV (08:33)
[2024-08-21] MEDS: Ascorbic Acid 500 MG Tablet 1000 MG PO (08:36)
[2024-08-21] MEDS: Ensure Plus High Protein 120 ML LIQUID PO (08:37)
[2024-08-21] MEDS: Enoxaparin 40 MG/0.4 ML Syringe SC (08:37)
[2024-08-21] MEDS: Pramipexole Di-HCl 0.5 MG Tablet PO (08:37)
[2024-08-21 08:43] VITALS: BP 121/57; PULSE 66; RESP 16; TEMP 36.6; O2SAT 96
--- NOTE | 2024-08-21 10:59 | PCM.DC ---
Discharge Instructions Diet Discharge Diet: Low fat / Low cholesterol DC O2, CPAP, BIPAP needs RN Home O2 Qualification: Home O2 Qualification: Is the patient on home oxygen No 08/20/24 10:00 Home O2 Qualification: AT REST 1- Pulse Ox at rest 96 08/20/24 10:00 Home O2 Qualification: WITH AMBULATION 1- Pulse Ox with ambulation 89 08/20/24 10:00 1- Oxygen Flow Rate with 0 08/20/24 10:00 ambulation Home O2 Discharge instructions: No Dressing / Incision Discharge Activity: Return to Normal Activity Dressing / Incision Call your doctor if you observe: Fever of 101 or Higher, Shortness of breath, Dizziness, Fainting spells, Swelling in the ankles, Chest pain and Increased palpitations (irregular heartbeat) Follow Up Care Test Results: Test results from this visit will be discussed in further detail at your follow-up appointment, if applicable. Discharge Plan Admission Admit Date/Time: 08/18/24 07:25 Attending Provider: Chele Quesada Primary Care Provider: Evan De Discharge Orders/Prescriptions Prescriptions: New prednisone 10 mg tablet 10 mg PO DAILY Qty: 32 0RF Rx Instructions: Take 4 tablets daily for 3 days then 3 tablets daily for 3 days then 2 tablets daily for 3 days then 1 tablet daily for 3 days then half tablet daily for 4 days levofloxacin 750 mg Tablet 750 mg PO DAILY 6 Days Qty: 6 0RF Continued albuterol sulfate 2.5 MG/3 ML solution for nebulization 2.5 mg inhalation Q6HWA.RT prednisone 5 MG tablet 4 mg PO DAILY albuterol sulfate [Ventolin HFA] 1 INHALER inhaler 1 - 2 puff inhalation Q6H PRN PRN (Reason: Shortness Of Breath) Centrum Silver 1 EACH tablet 1 ea PO DAILY trazodone 50 mg Tablet 50 mg PO QHS PRN (Reason: depression) levothyroxine 100 mcg Tablet 100 mcg PO DAILY cholecalciferol (vitamin D3) 100 mcg (4,000 unit) Capsule 100 mcg PO QODAY Arthrozene 1 cap PO/SL DAILY acetaminophen 500 mg Tablet 1,000 mg PO TID Qty: 100 0RF Rx Instructions: Do not take more than 3000 mg Tylenol in a 24-hour period. ropinirole 1 mg tablet 1 mg PO BID rosuvastatin 20 mg tablet 20 mg PO DAILY paroxetine HCl [Paxil] 10 mg tablet 10 mg PO DAILY Referrals / Follow Up: Evan De MD [Primary Care Provider] - Within 1 Week Disposition Disposition (needs filled in before D/C Order can be placed): Home, Self Care
--- NOTE | 2024-08-21 12:05 | RAD_ITS ---
PROCEDURE: CHEST 1 VIEW (PORTABLE) REASON FOR EXAM: History of right middle lobe consolidation. Follow-up examination. TECHNIQUE: Frontal view of the chest. COMPARISON: Comparison is made with prior study dated August 18, 2024. FINDINGS: Persistent right middle lobe infiltrate. Progressive increased markings at the left lung base suggestive of left lower lobe infiltrate superimposed on scarring. Blunting of the left costophrenic angle. Calcification of the aortic arch. Status post right reverse shoulder replacement. 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 RAD/Chest 1 View (Portable) IMPRESSION: Persistent right middle lobe infiltrate as well as infiltration in the left low er lobe superimposed on scarring with blunting of the left costophrenic angle. Follow-up recommended. Reading Location: [place] [address]
--- NOTE | 2024-08-21 13:12 | CASEMGMT ---
Patient has order for discharge. RN CM in to discuss needs or help at discharge. Patient voiced interest in private aide. RN CM provided patient with Private Duty List and Direction Home information. Patient denied further needs or help at discharge. Patient had no further questions or concerns.
[2024-08-21 13:36] VITALS: PULSE 69; RESP 21
[2024-08-21] MEDS: levoFLOXacin 750 MG Tablet PO (14:21)
[2024-08-21 14:23] VITALS: BP 108/59; PULSE 68; RESP 17; TEMP 36.8; O2SAT 93
--- NOTE | 2024-08-21 14:56 | DS.PCM_ITS ---
Providers Date of Admission: 08/18/24 Primary Care Physician: Dr. Evan De MD Reason For Visit: FLU A Diagnosis Discharge Diagnosis (1) Hypoxia: Status: Acute Code(s): R09.02 - Hypoxemia (2) Influenza A: Status: Acute Code(s): J10.1 - Influenza due to other identified influenza virus with other respiratory manifestations (3) Right lower lobe pneumonia: Status: Acute Code(s): J18.9 - Pneumonia, unspecified organism Medications at Discharge Home Medications albuterol sulfate 2.5 mg/3 mL (0.083 %) solution for nebulization 2.5 mg inhalation Q6HWA.RT asthma 09/23/13 albuterol sulfate 90 mcg/actuation aerosol inhaler (Ventolin HFA) 1 - 2 puff inhalation Q6H PRN PRN Shortness Of Breath 09/23/13 zmhettln-jtk-[id number] acid 0.4 mg-lycopene 300 mcg-lutein 250 mcg tablet (Centrum Silver) 1 ea PO DAILY vitamin 09/23/13 prednisone 5 mg tablet 4 mg PO DAILY inflammation 09/23/13 cholecalciferol (vitamin D3) 100 mcg (4,000 unit) capsule 100 mcg PO QODAY supplement 01/12/21 levothyroxine 100 mcg tablet 100 mcg PO DAILY thyroid 01/12/21 trazodone 50 mg tablet 50 mg PO QHS PRN depression 01/12/21 Arthrozene 1 cap PO/SL DAILY 01/28/21 acetaminophen 500 mg tablet 1,000 mg (2 x 500 mg) PO TID pain #100 tabs 02/06/21 paroxetine HCl 10 mg tablet (Paxil) 10 mg PO DAILY mental health 08/18/24 ropinirole 1 mg tablet 1 mg PO BID restless legs 08/18/24 rosuvastatin 20 mg tablet 20 mg PO DAILY cholesterol 08/18/24 levofloxacin 750 mg tablet 750 mg PO DAILY 6 days #6 tabs 08/21/24 prednisone 10 mg tablet 10 mg PO DAILY #32 tabs 08/21/24 Hospital Course Operations None Procedures None Summary of Care Provided Minutes Spent on Discharge: 37 Hospital Course: Per HPI: TENNILLE SULLIVAN, is a 59 F who presents to the hospital with increasing shortness of breath over the last 3 to 5 days. She started having increasing work of breathing and a cough. She presented today because of increased shortness of breath and was found to have influenza A. Chest x-ray also demonstrates right lower lobe consolidation. Her care is complicated by the fact that she has scleroderma and restrictive lung disease. Denies any fevers or chills currently and had a family member who was recently sick with influenza. She does not wear oxygen at home at baseline. Hospital Course: 1. Acute hypoxia secondary to influenza A in the setting of right lower lobe pneumonia complicated by restrictive lung disease due to scleroderma ? Continue with steroids ? She is outside the window for Tamiflu though she did get a dose in the ER ? Continue with inhalers 08/21/2024: She has had significant improvement over the last couple of days. Repeat chest x-ray continues to show of right lobe infiltrate as well as now a left lower lobe superimposed infiltrate. We are unable to get a sputum culture and despite her significant improvement and no longer being hypoxic on steroids and breathing treatments there had been a delay with starting antibiotics, which were started today on the day of discharge. She will receive 7 days of Levaquin on discharge as well as a steroid taper to help with her restrictive lung disease in the setting of her scleroderma after her steroid taper she can resume her daily prednisone. I discussed with her the plan for discharge today and she expressed understanding of the risks and benefits of going home and would like to go home today. 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 2. Hypothyroidism ? Stable ? Continue with Synthroid 3. Anxiety/depression ? Stable ? Continue with her home medications Physical Exam Narrative General: Alert, Oriented x3, Cooperative, No apparent distress HEENT: Atraumatic, PERRLA, EOMI, Normocephalic Oral: Moist Mucosa Neck: Supple, No JVD Lungs: Diminished, Normal air movement, no rhonchi, No wheeze, No rales Cardiovascular: Regular rate, Regular Rhythm, Normal S1, Normal S2, No murmurs Abdomen: Soft, Non Tender, Non-Distended, No Hepato-splenomegaly Extremities: No edema, Capillary Refill Less than 3 Seconds Skin: No rashes, No breakdown Musculoskeletal: Upper extremity contractures chronic Neurological: No focal neurological deficits, contractures and movements at baseline Psych/Mental Status: Normal Affect, Appropriate Medical Records Data Medical Nutrition Assessment Dietitian: Malnutrition Criteria Met Start: 08/18/24 12:34 Freq: Status: Active Protocol: Document 08/18/24 14:36 SB (Rec: 08/18/24 14:36 SB [id number]) Nutrition Malnutrition Evidence of Yes Malnutrition Exists Malnutrition (severe Acute Illness/Injury ): Evidenced By Suboptimal Energy Intake (Severe),Physical Changes ( Severe) Clinical Problem Swallowing Difficulty Etiology likely related to scleroderma dx Signs/Symptoms as evidenced by need for modified diet and limited mandible extension. Status Active Problem Acute Disease or Injury Related Malnutrition Etiology severe related to inadequate oral intake Signs/Symptoms as evidenced by PO meeting <50% of estimated nutrition needs x 3-5 days and muscle/fat wasting in clavicle, temples, and orbital areas. Status Active Problem Recommendation Dietitian Continue regular diet per REINFORCED CONCRETE INSPECTOR texture/consistency Recommendations/ recommendations. Changes Continue 120ml ensure plus high protein 4x daily with medpass, prefers chocolate or vanilla. Will order fortified pudding TID with meals. Will monitor weight trends. Recommend appetite stimulant to increase PO intake. Reviewed and approved by Charlotte Snyder RD, LD. Weight / BMI Weight Weight: 89 lb 0.01 oz Body Mass Index (BMI) 16.2 ABG / Lab / Microbiology Data 08/20/24 06:26 08/20/24 06:26 Microbiology: Microbiology 08/18/24 04:59 Mucosa - Nose SARS-CoV-2, Influenza & RSV (PCR) - Final Influenzae A Radiography Diagnostic Testing: Radiology Impression Chest X-Ray 08/21/24 12:05 IMPRESSION: Persistent right middle lobe infiltrate as well as infiltration in the left lower lobe superimposed on scarring with blunting of the left costophrenic angle. Follow-up recommended. Reading Location: [facility] D/C Instructions Discharge Diet: Low fat / Low cholesterol Call your doctor if you observe: Fever of 101 or Higher, Shortness of breath, Dizziness, Fainting spells, Swelling in the ankles, Chest pain and Increased palpitations (irregular heartbeat) DC O2, CPAP, BIPAP Needs RN Home O2 Qualification: Home O2 Qualification: Is the patient on home oxygen No 08/20/24 10:00 Home O2 Qualification: AT REST 1- Pulse Ox at rest 96 08/20/24 10:00 Home O2 Qualification: WITH AMBULATION 1- Pulse Ox with ambulation 89 08/20/24 10:00 1- Oxygen Flow Rate with 0 08/20/24 10:00 ambulation Home O2 Discharge instructions: No Meaningful Use Info Meaningful Use Meaningful Use Diagnoses (Choose all that apply): None applicable Ischemic Stroke Statin Dosing Therapy Reference: STATIN DOSE THERAPY REFERENCE: * Patients > 75 years receive moderate or high dose statin therapy. * Patients 75 years or YOUNGER should receive HIGH intensity statin dose unless contraindicated. You will be required to document reason for non-treatment if statin daily dose does not meet guidelines. HIGH DOSE STATIN THERAPY DAILY Atorvastatin > than or = to 40 mg Rosuvastatin > than or = to 20 mg Amlodipine + Atorvastatin > than or = to 2.5/40 mg Ezetimibe + Simvastatin 10/80 mg Simvastatin 80mg Discharge Plan Admission Admit Date/Time: 08/18/24 07:25 Attending Provider: Chele Quesada Primary Care Provider: Evan De Discharge Orders/Prescriptions Prescriptions: New prednisone 10 mg tablet 10 mg PO DAILY Qty: 32 0RF Rx Instructions: Take 4 tablets daily for 3 days then 3 tablets daily for 3 days then 2 tablets daily for 3 days then 1 tablet daily for 3 days then half tablet daily for 4 days levofloxacin 750 mg Tablet 750 mg PO DAILY 6 Days Qty: 6 0RF Continued albuterol sulfate 2.5 MG/3 ML solution for nebulization 2.5 mg inhalation Q6HWA.RT prednisone 5 MG tablet 4 mg PO DAILY albuterol sulfate [Ventolin HFA] 1 INHALER inhaler 1 - 2 puff inhalation Q6H PRN PRN (Reason: Shortness Of Breath) Centrum Silver 1 EACH tablet 1 ea PO DAILY trazodone 50 mg Tablet 50 mg PO QHS PRN (Reason: depression) levothyroxine 100 mcg Tablet 100 mcg PO DAILY cholecalciferol (vitamin D3) 100 mcg (4,000 unit) Capsule 100 mcg PO QODAY Arthrozene 1 cap PO/SL DAILY acetaminophen 500 mg Tablet 1,000 mg PO TID Qty: 100 0RF Rx Instructions: Do not take more than 3000 mg Tylenol in a 24-hour period. ropinirole 1 mg tablet 1 mg PO BID rosuvastatin 20 mg tablet 20 mg PO DAILY paroxetine HCl [Paxil] 10 mg tablet 10 mg PO DAILY Referrals / Follow Up: Evan De MD [Primary Care Provider] - Within 1 Week Disposition Disposition (needs filled in before D/C Order can be placed): Home, Self Care Charges/Coding Visit Charges Inpatient E&M: 31962 Disch Hosp >30min
== END 2024-08-21 17:39 | disposition home or self-care (01) | DRG 193 ==
LOC: ED 07:17 → PCU 08:09
PROVIDERS: Admitting Provider Family Medicine; Emergency Provider Emergency Medicine; PCP Family Medicine; Visit Provider Family Medicine
DX: J09.X1 Influenza due to identified novel influenza A virus with pneumonia (principal); E43 Unspecified severe protein-calorie malnutrition; J44.0 Chronic obstructive pulmonary disease with (acute) lower respiratory infection; Z68.1 Body mass index [BMI] 19.9 or less, adult; J18.0 Bronchopneumonia, unspecified organism; R13.10 Dysphagia, unspecified; M34.9 Systemic sclerosis, unspecified; E03.9 Hypothyroidism, unspecified; F32.A Depression, unspecified; E78.00 Pure hypercholesterolemia, unspecified; F41.9 Anxiety disorder, unspecified; Z90.710 Acquired absence of both cervix and uterus; Z20.828 Contact with and (suspected) exposure to other viral communicable diseases; R09.02 Hypoxemia; Z98.51 Tubal ligation status
CPT/HCPCS: 31720; 36415; 71045; 71046; 80048; 83735; 85025; 87631; 92526; 92610; 94640; 94667; 94668; 97162; 97166; 97535; 97802; 99252; 99284; A4216; G0463; J2405

== ENCOUNTER 2024-12-16 18:11 | Emergency (ER) | payer MEDICARE, SELFPAY ==
[2024-12-16 18:12] VITALS: BP 133/39; PULSE 100; RESP 16; TEMP 36.6; O2SAT 99; BMI 15.7
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
--- NOTE | 2024-12-16 18:46 | EKG12_ITS ---
Test Reason : DYSRHYTHMIA Blood Pressure : */* mmHG Vent. Rate : 72 BPM Atrial Rate : 72 BPM P-R Int : 126 ms QRS Dur : 74 ms QT Int : 374 ms P-R-T Axes : 72 58 42 degrees QTcB Int : 409 ms Normal sinus rhythm Normal ECG Confirmed by BIMAL DINERO, YAZMIN ([id number]), online editor DAVID LAZARO ([id number]) on 12/18/2024 6:43:30 AM Referred By: Confirmed By: YAZMIN WALLIS MD
--- OUTSIDE RECORDS SUMMARY | 2024-12-16 18:46 | XMS RPT_ITS | CCD ---
Author Organization [facility] Care Team Providers Care Roof Bolter Name Role Phone JONATHAN HOLGUIN Attending Unav ailable Cassidyaee, Jonathan Nevaazzam Primary Care Provide r Leigh Sharon Unavailable Unavailable Leigh, Sharon L Unavailable Unavailable Ryan Monge Unavailable Unavailab Sharon Bazzi Unavailable Unavailable Tavchloee, Jonathan Monazzam Primary Care Provide r Leigh Sharon L Unavailable Unavailable Unavailable Unavailable Unavailable MurtazaOlga Lidia Unavailable Unavailable Ana Laura, Evaristo L Unavailable Free, Text Entry Unavailable Unavailable LeighStarla sierrahy L Unavailable Mcintosh, Evaristo L Unavailable Unavailable Ezequiel Armas I Unavailable Unavailable Evelyn Murray Unavailable Harmeet Richard Unavailable Unavailable Trevor, Ms. Evelyn Dykes Attending Unavailabl e Mcintosh, Mrs. Evaristo Carneyn Primary Care Unavailabl e Ana Laura, Mrs. Gross Yuly Primary Care Unavailabl e Murray, MsEulalia Dykes Attending Unavailabl e Ana Laura, Eulalia Evaristo Yuly Primary Care Unavailabl e Murray, MsEulalia Dykes Attending Unavailabl e Mcintosh, Mrs. Evaristo Carneyn Primary Care Unavailabl e Murray, MsEulalia Dykes Attending Unavailabl e Manocchisho, Ms. Gan Attending Unavail able Ana Laura, Mrs. Gross Yuly Primary Care Unavailabl e Moomaw, Eulalia Smith Attending Unavailable Ana Laura, Mrs. Evaristo Carneyn Primary Care Unavailabl e Moomaw, Mr. Ezequiel Smith Attending Unavailable Mcintosh, Mrs. Evaristo Parson Primary Care Unavailabl e Mcintosh, Mrs. Evaristo Parson Primary Care Unavailabl e Ana Laura, Mrs. Evaristo Parson Attending Unavailabl e Murray, MsEulalia Dykes Attending Unavailabl e Mcintosh, Mrs. Evaristo Parson Primary Care Unavailabl e Ana Laura, Mrs. Evaristo Parson Primary Care Unavailabl e Trevor, MsEulalia Dykes Attending Unavailabl e Murray, MsEulalia Dykes Attending Unavailabl e Mcintosh, Mrs. Evaristo Parson Primary Care Unavailabl e Murray, MsEulalia Dykes Attending Unavailabl e Mcintosh, Mrs. Evaristo Pasron Primary Care Unavailabl e Ana Laura, Mrs. Evaristo Parson Primary Care Unavailabl e Evelyn Murray Referring Unavailable Evelyn Murray Attending Unavailable Ana Laura, Mrs. Evaristo Parson Primary Care Unavailabl e Evelyn Murray Referring Unavailable Evelyn Murray Attending Unavailable Ana Laura, Mrs. Evaristo Parson Primary Care Unavailabl e Evelyn Murray Referring Unavailable Trevor, Evelyn Attending Unavailable Evelyn Murray Referring Unavailable Ana Laura, Mrs. Evaristo Parson Primary Care Unavailabl e Trevor, Evelyn Attending Unavailable Evelyn Murray Referring Unavailable Mcintosh, Mrs. Evaristo Parson Primary Care Unavailabl e Evelyn Murray Attending Unavailable Mcintosh, Mrs. Evaristo Parson Primary Care Unavailabl e Mcintosh, Mrs. Evaristo Parson Referring Unavailabl e Evelyn Murray Attending Unavailable Ana Laura, Mrs. Evaristo Parson Primary Care Unavailabl e Evelyn Murray Attending Unavailable Evelyn Murray Referring Unavailable Ana Laura, Mrs. Evaristo Parson Primary Care Unavailabl e Trevor, Evelyn Attending Unavailable Evelyn Murray Referring Unavailable Mcintosh, Mrs. Evaristo Parson Primary Care Unavailabl e Mcintosh, Mrs. Evaristo Parson Referring Unavailabl e Naa Laura, Mrs. Evaristo Parson Attending Unavailabl e Ana Laura, Mrs. Evaristo Parson Primary Care Unavailabl e Mcintosh, Mrs. Evaristo Parson Referring Unavailabl e Ana Laura, Mrs. Evaristo Carneyn Attending Unavailabl e Mcintosh, Mrs. Evaristo Parson Primary Care Unavailabl e Mcintosh, Mrs. Evaristo Parson Referring Unavailabl e Ana Laura, Mrs. Evaristo Parson Attending Unavailabl e Leigh WAN, Yeimy Primary Care Provider EFREN LAWRENCE JR. Attending Unavailable ANA LAURA, EVARISTO PARSON Primary Care Unavailable MARICRUZ GIMENEZ Referring Unavailable LEIGH YEIMY Primary Care Unavailable Ana Lauraortega VILLANUEVA, Evaristo Salinas Primary Care Provider [phone] Leigh WAN, Yeimy Primary Care Provider Evan De MD Primary Care Provider Royal IZAGUIRRE Lacey Joel Unavailable Evan De MD Primary Care Provider KENISHA, EVAN L Referring Unavailable KENISHA, EVAN L Primary Care Unavailable ANA LAURA, EVARISTO Rita Referring Unavailable KENISHA, EVAN L Primary Care Unavailable KENISHA, EVAN L Primary Care Unavailable GERALDO PHILIPPE Attending Unavailable Evan De MD Unavailable Evan De MD Primary Care Provider KENISHA, EVAN L Primary Care Unavailable ATUL MCKEON Attending Unavailable DONNIE SNOW Referring Unavailable Ana Laura DIRECTOR AND PROFESSOR-RICH, Evaristo Salinas Primary Care Provider KENISHA, EVAN L Primary Care Unavailable SKEBE, HERI L Referring Unavailable EVELYN MURRAY Referring Unavailable KENISHA, EVAN L Primary Care Unavailable KoshantalsTeraChele F Consulting Unavailable Kenisha, Evan Primary Care Unavailable Tera Quesaadolas F Attending Unavailable Kotsonis, Chele F Admitting Unavailable Kotsonis, Chele F Admitting Unavailable Kenisha, Evan Primary Care Unavailable Kotsonis, Chele F Attending Unavailable KENISHA, EVAN L Primary Care Unavailable SKEBE, HERI L Referring Unavailable KENISHA, EVAN L Primary Care Unavailable MURPHY BILLS Referring Unavailable VALERIA PITTMAN Attending Unavailable KENISHA, EVAN L Primary Care Unavailable MURPHY BILLS Referring Unavailable KENISHA, EVAN L Primary Care Unavailable DONNIE SNOW Referring Unavailable KENISHA, EVAN L Primary Care Unavailable KENISHA, EVAN L Primary Care Unavailable MAYKEL CROW Attending Unavailable MAYKEL CROW Admitting Unavailable KENISHA, EVAN L Primary Care Unavailable SKEBE, HERI L Referring Unavailable KENISHA, EVAN L Primary Care Unavailable VINCENZO LYNN Referring Unavailable KENISHA, EVAN L Primary Care Unavailable VINCENZO LYNN Attending Unavailable KENISHA, EVAN L Primary Care Unavailable TOYAVALERIA M Referring Unavailable KENISHA, EAVN L Primary Care Unavailable TOYAVALERIA M Referring Unavailable KENISHA, EVAN L Primary Care Unavailable TOYAVALERIA M Attending Unavailable KENISHA, EVAN L Primary Care Unavailable SNOW, DONNIE Referring Unavailable KENISHA, EVAN L Primary Care Unavailable SKEBE, HERI L Attending Unavailable KENISHA, EVAN L Primary Care Unavailable KENISHA, EVAN L Primary Care Unavailable CHAOUI, REDA Attending Unavailable KENISHA, EVAN L Primary Care Unavailable SONAL LOCO Referring Unavailable KENISHA, EVAN L Primary Care Unavailable SNOW, DONNIE Referring Unavailable KENISHA, EVAN L Primary Care Unavailable KENISHA, EVAN L Primary Care Unavailable TOYA, VALERIA M Attending Unavailable KENISHA, EVAN L Primary Care Unavailable SNOW, DONNIE Referring Unavailable KENISHA, EVAN L Primary Care Unavailable SNOW, DONNIE Referring Unavailable KENISHA, EVAN L Primary Care Unavailable ATUL MCKEON Referring Unavailable KENISHA, EVAN L Primary Care Unavailable SNOW, DONNIE Referring Unavailable KENISHA, EVAN L Primary Care Unavailable SNOW, DONNIE Attending Unavailable KENISHA, EVAN L Primary Care Unavailable MAYKEL CROW Attending Unavailable KENISHA, EVAN L Primary Care Unavailable KENISHA, EVAN L Primary Care Unavailable KENISHA, EVAN L Primary Care Unavailable CHAOUI, REDA Referring Unavailable KENISHA, EVAN L Attending Unavailable KENISHA, EVAN L Primary Care Unavailable QUE FRANK Attending Unavailable KENISHA, EVAN L Primary Care Unavailable QUE FRANK Attending Unavailable KENISHA, EVAN L Primary Care Unavailable Allergies Allergy Classification Reported Allergen(s) Allergy Type Date of Onset Reaction(s) Facility Aspirin (12 sources) Aspirin; Translations: [Aspirin TABS] Drug Allergy Unknown -[facility] Work Phone: Cephalosporins (antibiotic) (12 sources) cefTAZidime; Translations: [ceftazidime] Drug Allergy Other [facility] Work Phone: Doxycycline (12 sources) Doxycycline; Translations: [doxycycline] Drug Allergy Shortness of breath, Other, Palpitations [facility] Work Phone: Lincosamides (antibiotic) (12 sources) Clindamycin; Translations: [clindamycin] Drug Allergy Other [facility] Work Phone: Macrolides (antibiotic) (12 sources) Erythromycin; Translations: [erythromycin] Drug Allergy Diarrhea [facility] Work Phone: Penicillins (antibiotic) (12 sources) Penicillins; Translations: [Penicillins] Drug Allergy Hives [facility] Work Phone: Povidone-Iodine (12 sources) Povidone-Iodine; Translations: [Betadine] Drug Allergy Itching [facility] Work Phone: (20 sources) Aspirin; Translations: [Aspirin TABS] Drug Allergy 4 Unknown [facility] (20 sources) cefTAZidime; Translations: [ceftazidime] Drug Allergy 0 Hives, Other [facility] (20 sources) Clindamycin; Translations: [clindamycin] Drug Allergy 1 Other: See Comments, Other [facility] (20 sources) Doxycycline; Translations: [doxycycline] Drug Allergy 9 Shortness Of Breath, Palpitations, Myalgia, Other [facility] (20 sources) Erythromycin; Translations: [erythromycin] Drug Allergy 4 Diarrhea [facility] (20 sources) Penicillins; Translations: [Penicillins] Propensity to adverse reactions to drug 4 Hives [facility] (20 sources) Povidone-Iodine; Translations: [Betadine] Drug Allergy 1 Itching [facility] (5 sources) Erythromycin; Translations: [ERYTHROMYCIN] Drug Allergy 3 Diarrhea [facility] 2 Repository (5 sources) Povidone-Iodine; Translations: [Betadine] Drug Allergy 1 Itching [facility] Work Phone: (2 sources) Amoxicillin Drug Allergy Other [facility] (13 sources) Ceftizoxime; Translations: [CEFTIZOXIME] Drug Allergy 0 Other [facility] (2 sources) Iodine Drug Allergy Itching [facility] (2 sources) Penicillin Drug Allergy Hives [facility] (2 sources) Povidone-Iodine Drug Allergy Itching [facility] (18 sources) SOAP; Translations: [SOAP] Propensity to adverse reactions to drug (disorder) 5 Unknown [facility] Repository (2 sources) cefTAZidime; Translations: [ceftazidime pentahydrate] Drug Allergy 3 [facility] (20 sources) Carbidopa / Levodopa; Translations: [CARBIDOPA-LEVOD OPA] Drug Allergy 4 GI Upset [facility] (1 source) Aspirin Drug Allergy 5 [facility] Repository (1 source) Clindamycin Drug Allergy 5 [facility] Repository (1 source) Erythromycin Drug Allergy 5 [facility] Repository (1 source) Povidone-Iodine Drug Allergy 5 [facility] Repository Medications Current Medications Medication Drug Class(es) Dates Sig (Normalized) Sig (Original) acetaminophen 500 mg oral tablet (15 sources) Start: 07-03-2024 End: 10-01-2024 take 2 tablets by mouth every four hours as needed acetaminophen (TYLENOL EXTRA STRENGTH) 500 mg tablet Take 2 tablets by mouth every 4 hours as needed for pain. 50 tablet 2 07/03/2024 10/01/2024 Active Start: 07-02-2024 End: 08-01-2024 take 2 tablets by mouth every eight hours as needed acetaminophen (TYLENOL EXTRA STRENGTH) 500 mg tablet Take 2 tablets by mouth every 8 hours as needed for pain. 180 tablet 07/02/2024 08/01/2024 Active Start: 01-16-2024 End: 01-16-2024 acetaminophen 1,000 mg tab(s ) (TYLENOL) Start: 02-06-2021 take 3000 mg by mout h three times daily Acetaminophen Active 1000 MG PO THREE TIMES A DAY 100 February 06, 2021 12:00am Do not take more than 3000 mg Tylenol in a 24-hour period. acetaminophen 325 mg / dextromethorphan hydrobromide 10 mg / phenylephrine hydrochloride 5 mg oral capsule (1 source) Uncompetitive F-yqbtnt-K-aspartate Receptor Antagonist, Sigma-1 Agonist, alpha-1 Adrenergic Agonist Start: 01-12-2021 take 1 capsule by mouth once daily Kbphrekfoffyg-Bo-Qhadybseywsjf (Mucinex Sinus-Max Cng-Pain(Dm)) 5-10-325 mg Capsule Active 1 CAP PO DAILY January 12, 2021 12:00am acetaminophen 325 mg / oxyCODONE hydrochloride 5 mg oral tablet (20 sources) Opioid Agonist Start: 09-08-2023 End: 09-11-2023 take 1 tablet by mouth every eight hours for pain oxyCODONE-acetaminophen (Percocet) 5-325 mg tablet Indications: Right forearm cellulitis Take 1 tablet by mouth every 8 hours if needed for severe pain (7 - 10) for up to 3 days. 9 tablet 0 09/08/2023 09/11/2023 Active Start: 04-22-2022 take 1 tablet by ludy three times daily as needed for pain oxycodone-acetaminophen 5 mg-325 mg oral tablet ; 1 tab(s) orally 3 times a day, As Needed for pain Quantity: 10 Refills: 0 Ordered: 22-Apr-2022 OfeliaEzequiel I Start: 22-Apr-2022 Generic Substitution Allowed Comments: Caution federal law prohibits the transfer of this drug to any person other than the person for whom it was prescribed.May cause drowsiness. Alcohol may intensify this effect. Use care when operating dangerous machinery.This prescription cannot be refilled.This product contains acetaminophen. Do not use with any other product containing acetaminophen to prevent possible liver damage.Using more of this medication than prescribed may cause serious breathing problems. Start: 01-12-2021 End: 02-06-2021 take 1 tablet by mouth every eight hours Oxycodone-Acetaminophen (Percocet) 5-325 mg Tablet Discontinued 1 TABLET PO Q8H January 12, 2021 12:00am February 06, 2021 7:19am Start: 11-28-2020 End: 03-11-2021 oxyCODONE-Acetaminophen 5-32 5 MG Oral Tablet TAKE 1 TABLET BY MOUTH 2-3 TIMES DAILY NEEDED FOR PAIN Quantity: 15 Refills: 0 Ordered: 28-Nov-2020 DO Start : 28-Nov-2020 End : 11-Mar-2021 Complete Start: 08-09-2019 take 1 tablet by ludy th every six hours as needed oxycodone-acetaminophen 5 mg-325 mg oral tablet ; 1 tab(s) orally every 6 hours, As Needed -for pain Quantity: 12 Refills: 0 Ordered: 09-Aug-2019 Lora Duarted Gatito Start: 09-Aug-2019 Status: Discontinued Generic Substitution Allowed Comments: Caution federal law prohibits the transfer of this drug to any person other than the person for whom it was prescribed.May cause drowsiness. Alcohol may intensify this effect. Use care when operating dangerous machinery.This prescription cannot be refilled.This product contains acetaminophen. Do not use with any other product containing acetaminophen to prevent possible liver damage.Using more of this medication than prescribed may cause serious breathing problems. Start: 11-22-2014 End: 02-06-2021 take 1 tablet by mouth every six hours as needed Oxycodone-Acetaminophen Discontinued 1 - 2 TABLET PO EVERY 6 HOURS NEEDED November 22, 2014 12:00am February 06, 2021 7:20am causes drowsiness Comment on above: Caution federal law prohibits the transfer of this drug to any person other than the person for whom it was prescribed.May cause drowsiness. Alcohol may intensify this effect. Use care when operating dangerous machinery.This prescription cannot be refilled.This product contains acetaminophen. Do not use with any other product containing acetaminophen to prevent possible liver damage.Using more of this medication than prescribed may cause serious breathing problems. Administered Medications Medication Order MAR Action Action Date Dose Rate Site tuberculin skin test, unspecified formulation Given 08/29/2019 tuberculin skin test, unspecified formulation Given 08/22/2019 (2 sources) Administered Medications Medication Order MAR Action Action Date Dose Rate Site tuberculin skin test, unspecified formulation Given 08/29/2019 tuberculin skin test, unspecified formulation Given 08/22/2019 albuterol 0.83 mg/ml inhalation solution (20 sources) beta2-Adrenergic Agonist Start: 02-24-2021 End: 01-13-2023 albuterol (PROVENTIL) 2.5 mg /3 mL (0.083 %) nebulizer solution Indications: Abnormal sputum Use 3 mL via nebulizer every 4 hours. 270 mL 5 02/24/2021 Active Start: 09-23-2013 take 2.5 mg by inhal ation every six hours Albuterol Sulfate Active 2.5 MG INHALATION EVERY 6 HOURS WHILE AWAKE September 23, 2013 12:00am Start: 09-23-2013 take 1 puff(s) by in halation every six hours as needed Albuterol Sulfate (Ventolin Hfa) 1 INHALER inhaler Active 1 - 2 PUFF INHALATION EVERY 6 HOURS NEEDED September 23, 2013 12:00am Start: 01-28-2011 End: 01-13-2023 take 2 puff(s) by inhalation twice daily as needed for wheezing albuterol HFA (PROVENTIL HFA) 90 mcg/Actuation INHALATION inhaler Inhale 2 Puffs as instructed twice daily as needed (for shortness of breath and wheezing.). 1 Inhaler 11 01/28/2011 01/13/2023 Discontinued take 2.5 mg by inhal ation every six hours as needed albuterol 2.5 mg /3 mL (0.083 %) nebulizer solution Take 3 mL (2.5 mg) by nebulization every 6 hours if needed. Active Albuterol Sulfat e (2.5 MG/3ML) 0.083% Inhalation Nebulization Solution USE 1 UNIT DOSE IN NEBULIZER EVERY 6 HOURS NEEDED. Quantity: 1 Refills: 11 Ordered: 26-Apr-2022 Evaristo Oakley Active take 3 mL by inhalat ion every six hours as needed albuterol 2.5 mg/3 mL (0.083%) inhalation solution ; 3 milliliter(s) inhaled every 6 hours, As Needed Quantity: 0 Refills: 0 Ordered: 19-Sep-2022 Tennille Riley Generic Substitution Allowed take 1-2 puff(s) by inhalation every four hours as needed for cough Albuterol Sulfate HFA 108 (90 Base) MCG/ACT Inhalation Aerosol Solution Inhale 1-2 puffs every 4 hours as needed for cough, wheeze, or shortne Quantity: 1 Refills: 0 Ordered: 10-Dec-2020 Sharon Vigil Active Albuterol Sulfat e (2.5 MG/3ML) 0.083% Inhalation Nebulization Solution Quantity: 0 Refills: 0 Ordered: 24-Apr-2019 DO Active take 1-2 puff(s) by inhalation every four hours as needed for cough Albuterol Sulfate HFA 108 (90 Base) MCG/ACT Inhalation Aerosol Solution Inhale 1-2 puffs every 4 hours as needed for cough, wheeze, or shortne Quantity: 1 Refills: 0 Ordered: 10-Dec-2020 Sharon Vigil Active Proventil HFA 10 8 (90 Base) MCG/ACT Inhalation Aerosol Solution Refills: 0 Active Comment on above: Inhale 2 Puffs as in structed twice daily as needed (for shortness of breath and wheezing.). Use 3 mL via nebuliz er every 4 hours. Use 3 mL via nebuliz er every 4 hours. Inhale over 5-15 minutes albuterol 0.833 mg/ml / ipratropium bromide 0.167 mg/ml inhalation solution (11 sources) Anticholinergic, beta2-Adrenergic Agonist Start: 0 take 3 mL by inhalation every six hours as needed ipratropium-albut Darrion (Duo-Neb) 0.5-2.5 mg/3 mL nebulizer solution Inhale 3 mL every 6 hours if needed. 08/16/2019 Active apixaban 2.5 mg oral tablet (3 sources) Factor Xa Inhibitor Start: 5 End: 5 take 1 tablet by mouth twice daily apixaban (ELIQUIS) 2.5 mg tab(s) Take 1 tablet by mouth two times a day for 6 days. 12 tablet 07/11/2024 07/17/2024 Active Start: 07-04-2024 End: 07-11-2024 take 2 tablets by mouth once daily apixaban (ELIQUIS) 5 mg tab(s) Take 2 tablets by mouth once daily for 21 days. 42 tablet 07/04/2024 07/11/2024 Discontinued Arthrozene (1 source) Start: 01-28-2021 take 1 capsule by mouth once daily Arthrozene Active 1 CAP SL/PO DAILY January 28, 2021 12:00am atorvastatin 10 mg oral tablet (20 sources) HMG-CoA Reductase Inhibitor Start: 02-24-2021 End: 06-05-2024 take 1 tablet by mouth once daily at bedtime atorvastatin (LIPITOR) 40 mg tablet Take 1 tablet by mouth daily at bedtime. 30 tablet 4 02/24/2021 11/10/2023 Discontinued (Not on Formulary) Start: 06-23-2019 End: 06-06-2023 take 1 tablet by mouth once daily atorvastatin (Lipitor) 10 mg tablet Indications: Mixed hyperlipidemia Take 1 tablet (10 mg) by mouth once daily. 30 tablet 3 09/21/2022 10/21/2022 Active Comment on above: Source=[place], Medication=ATORVASTA TIN 10 MG TABLET, [id number], OriginatingProvider=SHARON ABRAHAM, Duration=90, Quantity=90, Refills=3, Date Last Modified/Filled=23-Jun-2019 Take 1 tablet by ludy th daily at bedtime. baclofen 10 mg oral tablet (20 sources) gamma-Aminobutyric Acid-ergic Agonist Start: take 10 mg by mouth three times daily as needed Baclofen Active 10 MG PO 3 TIMES DAILY NEEDED January 12, 2021 12:00am Start: 03-21-2020 End: [id number] Medication baclofen 1 0 mg tablet baclofen 10 mg tablet 10 mg 08/19/2020 Active (Outside) BACLOFEN ORAL Ta ke by mouth . 0 Active Comment on above: Source=[place], Medication=BACLOFEN 10 MG TABLET, OriginatingSource=[id number], OriginatingProvider=ART CANAS, Duration=20, Quantity=60, Date Last Modified/Filled=28-May-2019 168 hr buprenorphine 0.0075 mg/hr transdermal system (15 sources) Partial Opioid Agonist Star t: 09-03 End: 03-23 apply 7.5 ug transdermal route every hour [id number] Medication buprenorphine 7.5 mcg/hour weekly transdermal patch buprenorphine 7.5 mcg/hour weekly transdermal patch 7.5 mcg/hour 08/04/2020 Active (Outside) Start: 09-03-2019 buprenorphine (BUTRANS) 7.5 mcg/hour transdermal patch Apply 1 patch every 7 days 0 09/03/2019 Active Start: 08-22-2019 apply 1 dose transde rmal route every week buprenorphine 7.5 mcg/hr transdermal film, extended release ; 1 patch transdermal once a week// change on Quantity: 1 Refills: 0 Ordered: 22-Aug-2019 Raudel Ti Majano Start: 22-Aug-2019 Status: Completed Generic Substitution Allowed Calcium Carbonate (20 sources) End: 06-18-2024 take 100 [IU] by mouth once daily take 100 [IU] by mouth once roberto carlos y take 100 [IU] by mouth once roberto carlos y Comment on above: Take by mouth. unkno wn dosage Take 100 Units by mo uth once daily. unknown dose Cholecalciferol (20 sources) Vitamin D Start: 01-12-2021 take 100 ug by mouth every other day Cholecalciferol (Vitamin D3) Active 100 MCG PO EVERY OTHER DAY January 12, 2021 12:00am cholecalciferol (VITAMIN D3) 400 unit tab Take by mouth. Active take 1 tablet by mouth once roberto carlos y Vitamin D3 400 intl units (10 mcg) oral tablet ; 1 tab(s) orally once a day Quantity: 0 Refills: 0 Ordered: 19-Sep-2022 Tennille Riley Generic Substitution Allowed Vitamin D TABS R efills: 0 DO Active Vitamin D TABS R efills: 0 Active Comment on above: Take by mouth. cholecalciferol, vitamin D3, (VITAMIN D3 ORAL) (13 sources) cholecalciferol, vitamin D3, (VITAMIN D3 ORAL) Vitamin D TABS Refills: 0 Active Active cholecalciferol, vitamin D3, (VITAMIN D3 ORAL) Vitamin D TABS Refills: 0 Active 0 Active diclofenac sodium 0.01 mg/mg topical gel (7 sources) Nonsteroidal Anti-inflammatory Drug Start: 07-05-2023 diclofenac sodium (Voltaren) 1 % gel gel Indications: Pain in joint of right shoulder Apply 1 Application topically 4 times a day. 100 g 1 07/05/2023 Active docusate sodium 100 mg oral capsule (1 source) Start: 07-02-2024 End: 07-16-2024 take 1 capsule by mouth twice daily docusate sodium (COLACE) 100 mg capsule Take 1 capsule by mouth two times a day for 14 days. 28 capsule 07/02/2024 07/16/2024 Active docusate sodium 50 mg / sennosides, care home 8.6 mg oral tablet (1 source) Start: 02-06-2021 Sennosides-Docusa te Sodium (Stool Softener-Stimulan t Laxat) 8.6-50 mg Tablet Active 2 TABLET PO TWICE A DAY February 06, 2021 12:00am Take until first bowel movement, then as needed 30 actuat fluticasone furoate 0.1 mg/actuat / vilanterol 0.025 mg/actuat dry powder inhaler (20 sources) Corticosteroid, beta2-Adrenergic Agonist Start: 01-14-2021 Fluticasone Furoate-Vilantero l (Breo Ellipta) 100-25 mcg/dose Blister With Device Active 1 INH INHALATION DAILY January 28, 2021 12:00am Start: 01-14-2021 take 1 puff(s) by in halation once daily Breo Ellipta 100-25 MCG/INH Inhalation Aerosol Powder Breath Activated INHALE 1 PUFFS Daily Quantity: 1 Refills: 0 Ordered: 14-Jan-2021 Meek Rose DO Start : 14-Jan-2021 Active guaiFENesin 20 mg/ml oral solution (5 sources) Start: 08-29-2024 End: 09-28-2024 take 20 mL by mouth every four hours as needed for cough guaiFENesin (ROBITUSSIN) 100 mg/5 mL syrup Indications: Acute cough Take 20 mL by mouth every 4 hours as needed for cough. 236 mL 1 08/29/2024 09/28/2024 Active ibuprofen 200 mg oral capsule (20 sources) Nonsteroidal Anti-inflammatory Drug take 4 capsules by mouth three times daily Ibuprofen 200 mg cap Take 800 mg by mouth three times daily. Active Ibuprofen 200 MG Oral Tablet Refills: 0 DO Active Comment on above: Take 800 mg by mouth three times daily. ketorolac tromethamine 10 mg oral tablet (1 source) Nonsteroidal Anti-inflammatory Drug, Cyclooxygenase Inhibitor Start: 09-20-19 End: 09-25-19 take 1 tablet by mouth four times daily as needed for pain ketorolac (Toradol) 10 mg tablet Indications: Biceps tendonitis on right Take 1 tablet (10 mg) by mouth 4 times a day as needed for moderate pain (4 - 6) for up to 5 days. 20 tablet 0 09/20/2023 09/25/2023 Active levoFLOXacin 500 mg oral tablet (10 sources) Quinolone Antimicrobial Start: 09-20-19 End: 11-10-19 take 1 tablet by mouth twice daily levoFLOXacin (Levaquin) 500 mg tablet Indications: Right forearm cellulitis Take 1 tablet (500 mg) by mouth 2 times a day for 7 days. 14 tablet 0 09/20/2023 09/27/2023 Discontinued (Side effects) Start: 04-22-2022 End: 04-26-2022 take 1 tablet by mouth once daily levoFLOXacin 750 mg oral tablet ; 1 tab(s) orally once a day x 5 days Quantity: 5 Refills: 0 Ordered: 22-Apr-2022 Ezequiel Armas I Start: 22-Apr-2022 End: 26-Apr-2022 Generic Substitution Allowed Comments: Avoid prolonged or excessive exposure to direct and/or artificial sunlight while taking this medication.Do not take dairy products, antacids, or iron preparations within one hour of this medication.Finish all this medication unless otherwise directed by prescriber.May cause drowsiness or dizziness.Medication should be taken with plenty of water. Comment on above: Avoid prolonged or e xcessive exposure to direct and/or artificial sunlight while taking this medication.Do not take dairy products, antacids, or iron preparations within one hour of this medication.Finish all this medication unless otherwise directed by prescriber.May cause drowsiness or dizziness.Medication should be taken with plenty of water. Take 500 mg by mouth two times a day. levothyroxine sodium 0.1 mg oral tablet (20 sources) l-Thyroxine Start: 0 End: 1 [id number] Medication levothyroxine 112 mcg tablet levothyroxine 112 mcg tablet 112 mcg 03/23/2020 Active (Outside) Start: 08-27-2017 End: 10-05-2024 take 1 tablet by mouth once daily before breakfast levothyroxine (SYNTHROID) 100 mcg tablet Indications: Hypothyroidism, unspecified type Take 1 tablet by mouth daily before breakfast. 30 tablet 08/27/2017 Active Comment on above: Source=Surescripts, Medication=LEVOTHYRO XINE 100 MCG TABLET, OriginatingSource=[facility]/pharmacy #[id number], OriginatingProvider=SHARON ABRAHAM, Duration=90, Quantity=90, Refills=3, Date Last Modified/Filled=18-Jun-2019 Take 1 tablet by ludy th daily before breakfast. magnesium hydroxide 80 mg/ml oral suspension (1 source) take 30 mL by mouth once daily as needed for constipation Milk of Magnesia 8% oral suspension ; 30 milliliter(s) orally once a day, As Needed - for constipation Quantity: 0 Refills: 0 Ordered: 18-Aug-2019 Phyllis Streeter Generic Substitution Allowed meloxicam 15 mg oral tablet (20 sources) Nonsteroidal Anti-inflammatory Drug Star t: 11-01 End: 02-20 take 15 mg by mouth once daily Meloxicam Active 15 MG PO DAILY January 12, 2021 12:00am Start: 08-02-2019 meloxicam (MOB IC) 7.5 MG tablet Vlgfwvex-Dml-Mx-Lycopen-Lute in (Centrum Silver) 1 EACH tablet (1 source) Start: 09-23-2013 take 1 tablet by mouth once daily Dhubczbp-Tip-Kw-Lycopen-Lutein (Centrum Silver) 1 EACH tablet Active 1 EACH PO DAILY September 23, 2013 12:00am Multivitamin preparation (1 source) take 1 tablet by mouth once daily Multiple Vitamins oral tablet ; 1 tab(s) orally once a day Quantity: 0 Refills: 0 Ordered: 19-Sep-2022 Tennille Riley Generic Substitution Allowed multivitamin tablet (20 sources) multivitamin tab let Take by mouth. Active take 1 tablet by mouth once roberto carlos y multivitamin tablet Take 1 tablet by mouth once daily. Active take 1 tablet by mouth once roberto carlos y multivitamin tablet Take 1 tablet by mouth once daily. 0 Active multivitamin tab let Take by mouth. 0 Active multivitamin tab let Multi-Vitamins TABS Refills: 0 Active 0 Active Comment on above: Take by mouth. mupirocin 0.02 mg/mg topical ointment (5 sources) RNA Synthetase Inhibitor Antibacterial Start: 06-18-2024 End: 07-04-2024 mupirocin (BACTROBAN) 2 % ointment Apply 0.5 inch with cotton swab (Q-tip) to each nostril in the morning and evening for 5 days prior to and including day of surgery. 22 g 06/18/2024 07/04/2024 Active Start: 05-28-2024 End: 06-02-2024 mupirocin (BACTROBAN) 2 % oi ntment Indications: Glenohumeral arthritis, right , Pre-op exam Use in the nose two times a day for 5 days. Apply 0.5 inch strip with q-tip in each nostril in the morning and in the evening for 5 days before surgery. You do not need to apply the morning of surgery. 22 g 05/28/2024 06/02/2024 Active Nebulizer and Compressor For Neb Bekah (20 sources) Start: 04-17-2012 Nebulizer and Compressor For Neb Bekah 1 Device as needed. Use as directed. 1 Device 0 04/17/2012 Active Comment on above: 1 Device as needed. Use as directed. nitroglycerin 0.4 mg sublingual tablet (20 sources) Nitrate Vasodilator End: 01-13-2023 nitroglycerin (Nitrostat) 0.4 mg SL tablet Nitroglycerin 0.4 MG Sublingual Tablet Sublingual Refills: 0 Active Active Nitroglycerin 0. 4 MG Sublingual Tablet Sublingual Quantity: 0 Refills: 0 Ordered: 24-Apr-2019 DO Active Nitrostat 0.4 mg sublingual tablet ; 1 tab(s) sublingual every 5 minutes, As Needed Quantity: 0 Refills: 0 Ordered: 19-Sep-2022 Tennille Riley Generic Substitution Allowed Comment on above: Nitroglycerin 0.4 MG Sublingual Tablet Sublingual Refills: 0 Active ondansetron 4 mg disintegrating oral tablet (16 sources) Serotonin-3 Receptor Antagonist Start: 024 take 1 tablet by mouth every eight hours as needed ondansetron orally disintegrating (ZOFRAN ODT) 4 mg disintegrating tablet Take 1 tablet by mouth every 8 hours as needed for nausea/vomiting. 10 tablet 1 07/02/2024 Active oxyCODONE hydrochloride 5 mg oral tablet (1 source) Opioid Agonist Start: 021 take 5-10 mg by mouth every four hours as needed Oxycodone Active 5 - 10 MG PO EVERY 4 HOURS NEEDED 36 February 06, 2021 OXYGEN, HOME THERAPY, (16 sources) Start: 025 OXYGEN, HOME THERAPY, Inhale 2 L/min as instructed as directed. 07/07/2024 Active PARoxetine hydrochloride 10 mg oral tablet (20 sources) Serotonin Reuptake Inhibitor Start: 024 End: take 1 tablet by mouth once daily PARoxetine (PAXIL) 10 mg tablet Take 10 mg by mouth once daily. 10/06/2023 Active Comment on above: Take 10 mg by mouth once daily. predniSONE 1 mg oral tablet (20 sources) Start: End: 026 take 4 tablets by mouth once daily predniSONE (DELTASONE) 1 mg tablet Take 4 tablets by mouth once daily. 360 tablet 3 11/22/2024 11/22/2025 Active Start: 05-31-2024 End: 08-21-2024 take 4 tablets by mouth once daily predniSONE (DELTASONE) 1 mg tablet Take 4 tablets by mouth once daily. 120 tablet 2 08/21/2024 Active Start: 03-03-2024 End: 05-30-2024 take 4 tablets by mouth once daily predniSONE (DELTASONE) 1 mg tablet Take 4 tablets by mouth once daily. 120 tablet 2 05/31/2024 Active Start: 09-27-2023 End: 10-07-2023 take 1 tablet by mouth once daily predniSONE (Deltasone) 20 mg tablet Indications: Inflammatory disorder of upper extremity Take 1 tablet (20 mg) by mouth once daily for 10 days. 10 tablet 0 09/27/2023 10/07/2023 Active Start: 01-12-2022 predniSONE 10 MG Oral Tablet Take 4 tablets (40mg) today, then 3 tabs daily for 3 days, then 2 tablets daily for 3 days, then 1 tablet daily for 3 days Quantity: 22 Refills: 0 Ordered: 12-Jan-2022 Evelyn Pérez Start : 12-Jan-2022 Active Start: 10-16-2020 [id number] Medicat ion prednisone 1 mg tablet prednisone 1 mg tablet 1 mg 10/16/2020 Active (Outside) Start: 06-19-2019 End: 03-01-2024 take 4 tablets by mouth once daily predniSONE (Deltasone) 1 mg tablet Take 4 tablets (4 mg) by mouth once daily. 0 08/07/2020 Active Start: 09-23-2013 take 4 mg by mouth once daily Prednisone Active 4 MG PO DAILY September 23, 2013 12:00am Comment on above: Source=Surescripts, Medication=PREDNISON E 1 MG TABLET, OriginatingSource=[facility]/pharmacy #[id number], OriginatingProvider=LORA FUENTESD, Duration=90, Upgcqeqz=842, Refills=3, Date Last Modified/Filled=19-Jun-2019 Take 4 tablets by [facility] once daily. NO REFILLS WITHOUT APPOINTMENT WITH DR FUENTES rOPINIRole 1 mg oral tablet (20 sources) Nonergot Dopamine Agonist Start: 2023 End: 2023 take 2 tablets by mouth twice daily, then take 2 tablets by mouth once daily at bedtime, then take 1 tablet by mouth once daily at bedtime rOPINIRole (Requip) 0.5 mg tablet Indications: restless leg syndrome Take 2 tablets (1 mg) by mouth 2 times a day for 3 days, THEN 2 tablets (1 mg) once daily at bedtime for 3 days, THEN 1 tablet (0.5 mg) once daily at bedtime for 3 days. 21 tablet 05/18/2024 Active Start: 02-10-2024 End: 06-19-2025 take 1 tablet by mouth twice daily rOPINIRole (Requip) 1 mg tablet Indications: restless leg syndrome Take 1 tablet (1 mg) by mouth 2 times a day. 180 tablet 3 06/19/2024 06/19/2025 Active Start: 01-31-2024 End: 02-10-2024 take 2 tablets by mouth once daily rOPINIRole (Requip) 0.25 mg tablet Indications: restless leg syndrome Take 2 tablets (0.5 mg) by mouth once daily. 60 tablet 01/31/2024 02/10/2024 Discontinued (Reorder) Start: 02-24-2021 End: 06-18-2024 take 1 tablet by mouth twice daily rOPINIRole (REQUIP) 0.25 mg tablet Take 1 tablet by mouth twice daily. 02/24/2021 06/18/2024 Discontinued Start: 04-24-2019 take 2 tablets [address] [facility] once daily rOPINIRole (Requip) 0.25 mg tablet Take 2 tablets (0.5 mg) by mouth once daily. 04/24/2019 Active Start: 09-23-2013 take 0.5 mg by mouth at bedtim e Ropinirole Hcl (Requip) 1 MG tablet Active 0.5 MG PO AT BEDTIME September 23, 2013 12:00am End: 06-18-2024 rOPINIRole (REQUIP) 0.5 mg t ablet Take 0.5 mg by mouth as needed. 06/18/2024 Discontinued Comment on above: Source=Bhavin, Medication=ROPINIROLE HCL 0.25 MG TABLET, OriginatingSource=[facility]/pharmacy #[id number], OriginatingProvider=SHARON ABRAHAM, Duration=30, Quantity=60, Refills=5, Date Last Modified/Filled=20-Jul-2019 Take 1 tablet by ludy twice daily. Take 0.5 mg by mouth three times daily. Take 0.5 mg by mouth as needed. rosuvastatin calcium 20 mg oral tablet (20 sources) HMG-CoA Reductase Inhibitor Star t: 10-21 End: 03-04 take 1 tablet by mouth once daily rosuvastatin (CRESTOR) 20 mg tablet Take 1 tablet by mouth once daily. 10/06/2023 Active Comment on above: Take 1 tablet by [facility] once daily. sodium chloride 70 mg/ml inhalation solution (20 sources) Star t: 02-02 End: 06-03 sodium chloride 7% solution 7 % nebu Indications: Abnormal sputum Inhale 4 mL as instructed twice daily. 300 Vial 3 02/24/2021 Active Comment on above: Inhale 4 mL as instr ucted twice daily. sulfamethoxazole 400 mg / trimethoprim 80 mg oral tablet (5 sources) Dihydrofolate Reductase Inhibitor Antibacterial, Sulfonamide Antimicrobial Star t: 01-20 End: 09-01 take 1 tablet by mouth twice daily sulfamethoxazole -trimethoprim (Bactrim) 400-80 mg tablet Indications: Right forearm cellulitis Take 1 tablet by mouth 2 times a day for 7 days. 14 tablet 0 09/13/2023 09/20/2023 Discontinued (Med List Cleanup) tiZANidine 2 mg oral tablet (20 sources) Central alpha-2 Adrenergic Agonist Star t: 10-21 tiZANidine (Zanaflex) 2 mg tablet Indications: Biceps tendonitis on right Take 1-2 tablets every 8 hrs prn muscle spasms/pain 30 tablet 2 10/06/2023 Active Start: 08-25-2023 End: 09-14-2023 tiZANidine (Zanaflex) 2 mg t ablet Indications: Biceps tendonitis on right Take 1-2 tablets every 8 hrs prn muscle spasms/pain 30 tablet 0 09/14/2023 Active Start: 03-08-2017 End: 11-08-2022 take 1 tablet by mouth once daily tiZANidine (ZANAFLEX) 4 mg tablet Take 1 tablet by mouth once daily. 20 tablet 1 03/08/2017 11/08/2022 Discontinued (Course of therapy completed) Comment on above: Take 1 tablet by ludy th once daily. traMADol hydrochloride 50 mg oral tablet (1 source) Opioid Agonist Start: 1 [id number] Medication tramadol 50 mg tablet tramadol 50 mg tablet 50 mg 11/10/2020 Active (Outside) traZODone hydrochloride 50 mg oral tablet (20 sources) Serotonin Reuptake Inhibitor Start: End: take 2 tablets by mouth at bedtime traZODone HCl - 50 MG Oral Tablet TAKE 2 TABLETS AT BEDTIME. Quantity: 60 Refills: 5 Ordered: 27-Dec-2019 Sharon Vigil Start : 24-Apr-2019 End : 25-May-2021 Complete Start: 08-03-2017 End: 01-13-2023 take 1 tablet by mouth once daily at bedtime traZODone (DESYREL) 50 mg tablet Take 1 tablet by mouth daily at bedtime. 30 tablet 11 08/03/2017 01/13/2023 Discontinued Comment on above: Take 1 tablet by ludy daily at bedtime. triamcinolone acetonide 1 mg/ml topical cream (20 sources) Corticosteroid Start: 10-06-2023 triamcinolone acetonide (KENALOG) 0.1 % cream Apply to affected area two times a day. 10/06/2023 Active Start: 10-06-2023 End: 02-10-2024 triamcinolone (Kenalog) 0.1 % cream Indications: Inflammatory disorder of upper extremity Apply topically 2 times a day. Apply to affected area 1-2 times daily as needed. Avoid face and groin. 30 g 10/06/2023 02/10/2024 Discontinued (Med List Cleanup) Start: 07-28-2023 End: 07-28-2023 triamcinolone acetonide (Shoaib alog-40) injection 40 mg Start: 07-22-2022 Triamcinolone Acetonide 40 MG/ML Injection Suspension INJECT 1 ML Intra-articular Quantity: 0 Refills: 0 Ordered: 22-Jul-2022 Evelyn Pérez Start : 22-Jul-2022 Complete Start: 04-02-2022 Triamcinolone Acetonide 40 MG/ML Injection Suspension INJECT 1 ML Intra-articular Quantity: 0 Refills: 0 Ordered: 02-Apr-2022 Evelyn Pérez Start : 02-Apr-2022 Complete Start: 12-15-2021 Triamcinolone Acetonide 40 MG/ML Injection Suspension INJECT 1 ML Intra-articular Quantity: 0 Refills: 0 Ordered: 15-Dec-2021 Evelyn Pérez Start : 15-Dec-2021 Complete Comment on above: Apply to affected ar ea two times a day. Completed/Discontinued Medications Medication Drug Class(es) Dates Sig (Normalized) Sig (Original) azithromycin 250 mg oral tablet (2 sources) Macrolide Antimicrobial Start: 12-17-2020 End: 12-25-2020 Azithromycin 250 MG Oral Tablet TAKE 2 TABLETS ON DAY 1 THEN TAKE 1 TABLET A DAY FOR 4 DAYS. Quantity: 1 Refills: 1 Ordered: 17-Dec-2020 Sharon Vigil Start : 17-Dec-2020 End : 25-Dec-2020 Complete betamethasone 3 mg/ml / betamethasone acetate 3 mg/ml injectable suspension (2 sources) Corticosteroid Start: 11-30-2023 End: 11-30-2023 betamethasone acetate-betamethas one sodium phosphate 6 mg injection (CELESTONE) budesonide 0.25 mg/ml inhalation suspension (12 sources) Corticosteroid Start: 02-24-2021 End: 01-13-2023 budesonide (PULMICORT) 0.5 mg/2 mL nebulizer solution Indications: Abnormal sputum Use 2 mL via nebulizer twice daily. 120 mL 4 02/24/2021 01/13/2023 Discontinued Start: 02-24-2021 End: 01-13-2023 take 2 mL by inhalation every twelve hours budesonide (PULMICORT) 0.5 mg/2 mL nebulizer solution Use 2 mL via nebulizer every 12 hours. Inhale over 5-15 minutes 60 mL 0 02/24/2021 01/13/2023 Discontinued Comment on above: Use 2 mL via nebuliz er twice daily. Use 2 mL via nebuliz er every 12 hours. Inhale over 5-15 minutes calcium carbonate 1250 mg / cholecalciferol 100 unt / vitamin k1 0.04 mg chewable tablet (6 sources) Vitamin D, Warfarin Reversal Agent, Vitamin K Start: 009 End: ca carbonate/vitamin d3/vit k(VIACTIV 500 MG-100 UNIT-40 MCG CHEWABLE TAB) Take one(1) tablet two(2) times daily. 60 11 05/02/2009 01/13/2023 Discontinued Comment on above: Take one(1) tablet t wo(2) times daily. carbidopa 25 mg / levodopa 250 mg oral tablet (2 sources) Aromatic Amino Acid Decarboxylation Inhibitor, Aromatic Amino Acid Start: End: take 1 tablet by mouth once daily at bedtime, then take 2 tablets by mouth once daily at bedtime carbidopa-levodopa (Sinemet) 25-250 mg tablet Indications: Restless leg syndrome Take 1 tablet by mouth once daily at bedtime for 3 days, THEN 2 tablets once daily at bedtime. 63 tablet 05/18/2024 06/19/2024 Discontinued (Side effects) cyclobenzaprine hydrochloride 10 mg oral tablet (20 sources) Muscle Relaxant Start: take 1 tablet by mouth three times daily as needed for pain cyclobenzaprine (FLEXERIL) 10 mg tablet Indications: Neck pain Take 1 tablet by mouth three times daily as needed for muscle spasm or pain. Watch for drowsiness 30 tablet 0 11/08/2022 Active Start: 04-26-2022 End: 09-21-2022 take 1 tablet by mouth at bedtime Cyclobenzaprine HCl - 10 MG Oral Tablet TAKE 1 TABLET Bedtime Quantity: 30 Refills: 0 Ordered: 26-Apr-2022 Evaristo Oakley Start : 26-Apr-2022 Active End: 09-08-2023 take 1 tablet by mouth once daily at bedtime cyclobenzaprine (Flexeril) 10 mg tablet Take 1 tablet (10 mg) by mouth once daily at bedtime. 0 09/08/2023 Discontinued (Entered in Error) take 1 tablet by ludy th once daily as needed cyclobenzaprine 5 mg oral tablet ; 1 tab(s) orally once a day, As Needed Quantity: 0 Refills: 0 Ordered: 19-Sep-2022 Yamileth Rileyyl Generic Substitution Allowed Comment on above: May cause drowsiness . Alcohol may intensify this effect. Use care when operating dangerous machinery.Obtain medical advice before taking any non-prescription drugs as some may affect the action of this medication. Take 1 tablet by ludy th three times daily as needed for muscle spasm or pain. Watch for drowsiness Disability Placard (9 sources) Start: 02-17-20 Disability Placard Please issue a handicapped placard; disability expected to last at least 5 years Quantity: 1 Refills: 0 Ordered: 16-Feb-2022 Evaristo Oakley Start : 16-Feb-2022 Active gabapentin 100 mg oral capsule (20 sources) Anti-epileptic Agent Start: 02-25-20 21 End: 04-20-20 23 take 2 capsules by mouth three times daily gabapentin (NEURONTIN) 100 mg capsule Take 2 capsules by mouth three times daily for 30 days. 0 02/24/2021 04/20/2023 Discontinued Start: 01-26-2021 take 1 capsule by mo ut three times daily gabapentin (Neurontin) 100 mg capsule Take 1 capsule (100 mg) by mouth 3 times a day. 0 01/26/2021 Active Start: 01-26-2021 take 1 capsule by mo ut once daily at bedtime, then take 1 capsule by mouth twice daily, then take 1 capsule by mouth three times daily Gabapentin 100 MG Oral Capsule TAKE 1 CAPSULE BY MOUTH DAILY AT BEDTIME FOR 3 DAYS, then TAKE 1 CAPSULE BY MOUTH TWICE DAILY FOR 3 DAYS, then TAKE 1 CAPSULE BY MOUTH THREE TIMES DAILY Quantity: 90 Refills: 0 Ordered: 26-Jan-2021 DO Start : 26-Jan-2021 Active End: 12-10-2020 Gabapentin 300 MG Oral Capsu le Quantity: 0 Refills: 0 Ordered: 10-Dec-2020 DO End : 10-Dec-2020 Complete Gabapentin 300 M G Oral Capsule Refills: 0 Active Comment on above: Take 2 capsules by m outh three times daily for 30 days. 10 ml lidocaine hydrochloride 10 mg/ml injection (2 sources) Antiarrhythmic, Amide Local Anesthetic Start: 11-30-2023 End: 11-30-2023 lidocaine (PF) 10 mg/mL (1 %) 4 mL injection (XYLOCAINE) Multi-Vitamins TABS (4 sources) Multi-Vitamins T ABS Refills: 0 DO Active Multi-Vitamins T ABS Refills: 0 Active Multi-Vitamins TABS (20 sources) Multi-Vitamins T ABS Quantity: 0 Refills: 0 Ordered: 24-Apr-2019 DO Active Wbfwfskl-Rkwrsop-Yarr-Lutei n tab (6 sources) End: 01-13-2023 take 1 tablet by mouth once daily Wogjiswk-Fsusibj-Kiuw-Lute in tab Take 1 tablet by mouth once daily. 0 01/13/2023 Discontinued take 1 tablet by ludy th once daily Vczblibf-Wetmiaf-Tkqd-Lutein tab Take 1 tablet by mouth once daily. 0 Active Comment on above: Take 1 tablet by ludy th once daily. rivaroxaban 10 mg oral tablet (3 sources) Factor Xa Inhibitor Start: 02-06-2021 Xarelto 10 MG Oral Tablet Quantity: 12 Refills: 0 Ordered: 06-Feb-2021 DO Start : 06-Feb-2021 Complete Start: 02-06-2021 take 1 tablet by ludy th once daily Rivaroxaban (Xarelto) 10 mg Tablet Active 10 MG PO DAILY@0600 12 February 06, 2021 12:00am Take 1 tablet daily for 2 weeks postoperatively for DVT prophylaxis romosozumab (20 sources) Start: 12-16-2023 End: 12-16-2023 romosozumab-aqqg 210 mg inje ction (EVENITY) Start: 11-18-2023 End: 11-18-2023 romosozumab-aqqg 210 mg inje ction (EVENITY) Start: 01-18-2023 End: 01-13-2024 romosozumab-aqqg 210 mg inje ction (EVENITY) End: 05-18-2024 romosozumab (Evenity) 210mg/ 2.34mL ( 105mg/1.17mLx2) prefilled syringe Inject under the skin every 30 (thirty) days. 05/18/2024 Discontinued (Therapy completed) romosozumab (Samina nity) 210mg/2.34mL ( 105mg/1.17mLx2) prefilled syringe Inject under the skin every 30 (thirty) days. Active romosozumab (Samina nity) 210mg/2.34mL ( 105mg/1.17mLx2) prefilled syringe Inject under the skin every 30 (thirty) days. 0 Active romosozumab-aqqg (EVENITY SUBCUTANEOUS) (20 sources) End: 05-16-2024 romosozumab-aqqg (EVENITY SUBCUTANEOUS) Inject subcutaneously once every month. 05/16/2024 Discontinued (Course of therapy completed) romosozumab-aqqg (EVENITY SUBCUTANEOUS) Inject subcutaneously once every month. Active romosozumab-aqqg (EVENITY SUBCUTANEOUS) Inject subcutaneously once every month. 0 Active Comment on above: Inject subcutaneousl y once every month. sertraline 50 mg oral tablet (20 sources) Serotonin Reuptake Inhibitor Start: take 1 tablet by mouth twice daily Sertraline (Zoloft) 50 mg Tablet Active 50 MG PO TWICE A DAY January 12, 2021 12:00am Start: 06-20-2020 [id number] Medicat ion sertraline 50 mg tablet sertraline 50 mg tablet 50 mg 06/20/2020 Active (Outside) Start: 08-16-2019 End: 02-10-2024 take 3 tablets by mouth once daily sertraline (Zoloft) 50 mg tablet Indications: Anxiety and depression Take 3 tablets (150 mg) by mouth once daily. 270 tablet 3 09/22/2022 02/10/2024 Discontinued (Med List Cleanup) Start: 03-08-2013 End: 11-10-2023 take 1 tablet by mouth once daily at bedtime sertraline (ZOLOFT) 50 mg tablet Take 1 tablet by mouth daily at bedtime. 30 tablet 3 03/08/2013 11/10/2023 Discontinued (Discontinued by another Health Care Provider) Comment on above: Source=Surescripts, Medication=SERTRALINE HCL 50 MG TABLET, OriginatingSource=[facility]/pharmacy #[id number], OriginatingProvider=SHARON ABRAHAM, Duration=90, Quantity=90, Refills=5, Date Last Modified/Filled=11-May-2019 Take 1 tablet by ludy th daily at bedtime. valACYclovir 1000 mg oral tablet (7 sources) Herpesvirus Nucleoside Analog DNA Polymerase Inhibitor, Herpes Simplex Virus Nucleoside Analog DNA Polymerase Inhibitor, Herpes Zoster Virus Nucleoside Analog DNA Polymerase Inhibitor Start: End: valACYclovir HCl - 1 GM Oral Tablet Three times a day for 7 days Quantity: 21 Refills: 0 Ordered: 18-Jul-2020 Saleem DINERO, MPH, Ryan Talbot Start : 18-Jul-2020 End : 10-Dec-2020 Complete Start: 07-18-2020 [id number] Medicat ion valacyclovir 1 gram tablet valacyclovir 1 gram tablet 1 gram 07/18/2020 Active (Outside) Vitamin D TABS (20 sources) Vitamin D TABS Q uantity: 0 Refills: 0 Ordered: 24-Apr-2019 DO Active 100 ml zoledronic acid 0.05 mg/ml injection (1 source) Bisphosphonate Start: 01-16-2024 End: 01-16-2024 zoledronic acid 5 mg PREMIX piggyback (RECLAST) Problems Active Problems Problem Classification Problem Date Documented Date Episodic/Chronic Acute bronchitis (20 sources) Acute exacerbation of chronic bronchitis; Translations: [Acute bronchitis] Episodic Allergic reactions (1 source) Allergy status to penicillin; Translations: [Allergy status to penicillin] Onset: 09-19-2022 Episodic Anxiety disorders (20 sources) Mixed anxiety and depressive disorder; Translations: [Anxiety state, unspecified] Onset: 09-19-2022 09-20-2022 Chronic Asthma (20 sources) Asthma; Translations: [Asthma, unspecified type, unspecified] Onset: 08-26-2017 08-27-2017 Chronic Chronic obstructive pulmonary disease and bronchiectasis (20 sources) Chronic bronchitis; Translations: [Unspecified chronic bronchitis] Onset: 09-20-2022 06-06-2023 Chronic Coagulation and hemorrhagic disorders (20 sources) Blood coagulation disorder; Translations: [Coagulation defect, unspecified] Onset: 06-06-2023 02-07-2021 Chronic Disorders of lipid metabolism (20 sources) Hyperlipidemia; Translations: [Other and unspecified hyperlipidemia] Onset: 08-17-2019 06-06-2023 Chronic Fluid and electrolyte disorders (2 sources) Dehydration; Translations: [Dehydration] 02-07-2021 Episodic Fracture of lower limb (3 sources) Closed fracture of tibial tuberosity; Translations: [Closed displaced fracture of left tibial tuberosity with routine healing, subsequent encounter] Episodic Headache; including migraine (2 sources) Headache; including migraine; Translations: [Headache, unspecified] Onset: 09-19-2022 Immunizations and screening for infectious disease (20 sources) Patient encounter status; Translations: [Other specified vaccination] Episodic Influenza (8 sources) Influenza; Translations: [Influenza due to unidentified influenza virus with other respiratory manifestations] Onset: 08-27-2024 04-23-2023 Episodic Intracranial injury (1 source) Concussion with no loss of consciousness; Translations: [Concussion without loss of consciousness, initial encounter] 08-31-2014 Episodic Mood disorders (20 sources) Depressive disorder; Translations: [Depression] Onset: 08-24-2017 08-24-2017 Chronic Mood disorders (3 sources) Mood disorders; Translations: [Depression, unspecified] Onset: 09-19-2022 Multiple sclerosis (13 sources) Multiple sclerosis; Translations: [Multiple sclerosis] Onset: 06-06-2023 06-06-2023 Chronic Nutritional deficiencies (20 sources) Deficiency of macronutrients; Translations: [Unspecified protein-calorie malnutrition] Onset: 06-06-2023 06-06-2023 Chronic Osteoarthritis (20 sources) Osteoarthritis of joint of right shoulder region; Translations: [Osteoarthrosis, unspecified whether generalized or localized, shoulder region] Onset: 01-26-2022 Chronic Osteoporosis (20 sources) Osteoporosis; Translations: [Osteoporosis, unspecified] Onset: 09-20-2022 Chronic Other aftercare (20 sources) Post-discharge follow-up; Translations: [Other follow-up examination] Resolved: 03-12-2021 Episodic Other aftercare (1 source) 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; Translations: [FPC (current) use of systemic steroids] Onset: 09-19-2022 Episodic Other aftercare (1 source) Other exterminator termite (current) drug therapy; Translations: [Other alf (current) drug therapy] Onset: 09-19-2022 Episodic Other circulatory disease (20 sources) Raynaud's disease; Translations: [Raynaud's syndrome] Onset: 09-20-2022 06-29-2021 Chronic Other circulatory disease (20 sources) Abnormal chest sounds; Translations: [Abnormal chest sounds] Episodic Other connective tissue disease (1 source) History of total knee arthroplasty; Translations: [Presence of right artificial knee joint] 02-04-2021 Chronic Other connective tissue disease (16 sources) History of reverse prosthetic total arthroplasty of right shoulder; Translations: [Presence of right artificial shoulder joint] Onset: 08-13-2024 07-17-2024 Chronic Other connective tissue disease (20 sources) Adhesive capsulitis of shoulder; Translations: [Adhesive capsulitis of shoulder] Episodic Other connective tissue disease (1 source) Muscle pain; Translations: [Myalgia, unspecified site] 04-23-2023 Episodic Other connective tissue disease (2 sources) Pain in right arm; Translations: [Pain in right arm] Onset: 09-08-2023 09-08-2023 Episodic Other connective tissue disease (1 source) Pain in right arm; Translations: [Pain in right arm] Onset: 09-08-2023 Episodic Other fractures (2 sources) Closed fracture thoracic vertebra; Translations: [Other fracture of unspecified thoracic vertebra, initial encounter for closed fracture] 01-10-2023 Episodic Other fractures (1 source) Other fracture of unspecified thoracic vertebra, initial encounter for closed fracture; Translations: [Other fracture of unspecified thoracic vertebra, initial encounter for closed fracture (HCC)] Onset: 01-10-2023 Episodic Other hereditary and degenerative nervous system conditions (20 sources) Restless legs; Translations: [Restless legs syndrome (RLS)] Onset: 03-07-2013 08-22-2017 Chronic Other hereditary and degenerative nervous system conditions (3 sources) Restless legs syndrome; Translations: [Restless legs syndrome (RLS)] Onset: 09-20-2022 Chronic Other injuries and conditions due to external causes (1 source) History of falling; Translations: [History of falling] Onset: 09-19-2022 Episodic Other injuries and conditions due to external causes (5 sources) Pulmonary aspiration of gastric contents; Translations: [Gastric contents in other parts of respiratory tract causing other injury, subsequent encounter] 11-10-2023 Episodic Other injuries and conditions due to external causes (1 source) Gastric contents in other parts of respiratory tract causing other injury, subsequent encounter; Translations: [Pulmonary aspiration of gastric contents, subsequent encounter] Onset: 11-14-2024 Episodic Other liver diseases (12 sources) Chronic hepatic failure; Translations: [Chronic hepatic failure without coma] Onset: 06-06-2023 Resolved: 06-06-2023 06-06-2023 Chronic Other liver diseases (1 source) Ischemic hepatitis; Translations: [Acute and subacute hepatic failure without coma] 02-07-2021 Episodic Other lower respiratory disease (20 sources) Interstitial lung disease; Translations: [Postinflammatory pulmonary fibrosis] Onset: 09-20-2022 09-20-2022 Chronic Other lower respiratory disease (1 source) Interstitial pulmonary disease, unspecified; Translations: [ILD (interstitial lung disease) (HCC)] Onset: 05-16-2024 Chronic Other lower respiratory disease (20 sources) Restrictive lung disease; Translations: [Other disorders of lung] 11-30-2023 Episodic Other lower respiratory disease (1 source) Dyspnea; Translations: [Dyspnea, unspecified] 04-20-2023 Episodic Other lower respiratory disease (2 sources) Cough; Translations: [Acute cough] 08-29-2024 Episodic Other lower respiratory disease (1 source) Hypoxemia; Translations: [Hypoxemia] Onset: 08-27-2024 Episodic Other nervous system disorders (1 source) Other chronic pain; Translations: [Other chronic pain] Onset: 09-19-2022 Chronic Other non-traumatic joint disorders (4 sources) Knee pain; Translations: [Left knee pain] Episodic Other non-traumatic joint disorders (20 sources) Shoulder pain; Translations: [Pain in joint, shoulder region] Onset: 09-20-2022 09-20-2022 Episodic Other non-traumatic joint disorders (1 source) Pain of right shoulder joint; Translations: [Pain in right shoulder] 07-05-2023 Episodic Other non-traumatic joint disorders (2 sources) Pain in right shoulder; Translations: [Pain in right shoulder] Onset: 07-05-2023 Episodic Other non-traumatic joint disorders (1 source) Decreased range of shoulder movement; Translations: [Stiffness of right shoulder, not elsewhere classified] 11-30-2023 Episodic Other non-traumatic joint disorders (1 source) Stiffness of right shoulder, not elsewhere classified; Translations: [Decreased range of motion of right shoulder] Onset: 11-30-2023 Episodic Other nutritional; endocrine; and metabolic disorders (1 source) Pediatric failure to thrive 09-19-2022 Episodic Pneumonia (except that caused by tuberculosis or sexually transmitted disease) (20 sources) Pneumonia; Translations: [Pneumonia, organism unspecified] Onset: 04-22-2022 04-22-2022 Episodic Residual codes; unclassified (20 sources) Sleep apnea; Translations: [Sleep apnea, unspecified] Onset: 02-11-2011 02-11-2011 Chronic Residual codes; unclassified (1 source) Pain; Translations: [Pain, unspecified] 11-29-2023 Episodic Respiratory failure; insufficiency; arrest (adult) (20 sources) Chronic hypercapnic respiratory failure; Translations: [Chronic respiratory failure with hypercapnia] Onset: 02-14-2021 Resolved: 02-24-2021 06-06-2023 Chronic Septicemia (except in labor) (1 source) Sepsis; Translations: [Sepsis, unspecified organism] 02-07-2021 Episodic Spondylosis; intervertebral disc disorders; other back problems (7 sources) Arthropathy of cervical spine facet joint; Translations: [Spondylosis without myelopathy or radiculopathy, cervical region] Chronic Sprains and strains (1 source) Strain of neck muscle; Translations: [Strain of muscle, fascia and tendon at neck level, initial encounter] 08-31-2014 Episodic Systemic lupus erythematosus and connective tissue disorders (20 sources) Systemic sclerosis; Translations: [Polymyositis] Onset: 11-17-2004 Chronic Thyroid disorders (20 sources) Hypothyroidism; Translations: [Unspecified acquired hypothyroidism] Onset: 08-03-2005 08-22-2017 Chronic Unclassified (2 sources) SEVER BACK PAIN 04-22-2022 Comment on above: SEVER BACK PAIN Unclassified (1 source) 3 MONTH L SHOULDER 04-02-2022 Comment on above: 3 MONTH L SHOULDER Unclassified (1 source) Other closed fracture of sixth thoracic vertebra, initial encounter 04-22-2022 Unclassified (2 sources) SEVERE NECK AND HEAD PAIN 09-19-2022 Comment on above: SEVERE NECK AND HEAD PAIN Unclassified (1 source) 3 MONTH FUV L SHOULDER 07-22-2022 Comment on above: 3 MONTH FUV L SHOULD ER Unclassified (1 source) Cough, unspecified; Translations: [Cough, unspecified] Onset: 04-17-2022 Unclassified (1 source) Acute cough; Translations: [Acute cough] Onset: 08-29-2024 Past or Other Problems Problem Classification Problem Date Documented Da te Episodic/Chronic Acute and unspecified renal failure (20 sources) Acute renal failure syndrome; Translations: [Acute kidney failure, unspecified] Onset: 02-09-2021 Resolved: 02-24-2021 02-24-2021 Episodic Cardiac dysrhythmias (20 sources) Palpitations; Translations: [Palpitations] Onset: 03-08-2013 Resolved: 07-07-2024 06-18-2024 Episodic Complications of surgical procedures or medical care (16 sources) Difficult intubation; Translations: [Failed or difficult intubation, initial encounter] Onset: 07-02-2024 07-07-2024 Episodic Deficiency and other anemia (20 sources) Anemia; Translations: [Anemia, unspecified] Onset: 09-20-2022 09-20-2022 Episodic E Codes: Fall (20 sources) Falling injury; Translations: [Unspecified site injury] Onset: 04-17-2022 09-20-2022 Episodic E Codes: Struck by; against (1 source) Striking against or struck by other objects, initial encounter; Translations: [Striking against or struck by other objects, init encntr] Onset: 04-17-2022 Episodic Fracture of upper limb (13 sources) Closed fracture of upper end of humerus; Translations: [Unspecified fracture of upper end of right humerus, subsequent encounter for fracture with routine healing] Onset: 08-13-2024 08-13-2024 Episodic Genitourinary symptoms and ill-defined conditions (20 sources) Female stress incontinence; Translations: [Stress incontinence (female) (male)] Onset: 05-12-2010 Resolved: 07-07-2024 06-18-2024 Chronic Headache; including migraine (20 sources) Headache; Translations: [Headache] Onset: 09-20-2022 09-20-2022 Episodic Malaise and fatigue (20 sources) Fatigue; Translations: [Other malaise and fatigue] Onset: 09-20-2022 09-20-2022 Episodic Menstrual disorders (20 sources) Disorder of female genital organs; Translations: [Irregular menstruation, unspecified] Onset: 02-26-2010 Resolved: 07-07-2024 02-26-2010 Chronic Nausea and vomiting (20 sources) Nausea; Translations: [Nausea alone] Onset: 03-07-2013 09-20-2022 Episodic Other acquired deformities (20 sources) Hill-Sachs lesion; Translations: [Other acquired deformity of other parts of limb] Onset: 09-20-2022 09-20-2022 Episodic Other acquired deformities (4 sources) Other specified acquired deformities of unspecified upper arm; Translations: [Oth acquired deformities of unspecified upper arm] Onset: 01-26-2022 Episodic Other aftercare (20 sources) Long-term current use of systemic steroid; Translations: [FPC (current) use of systemic steroids] Onset: 01-13-2023 Episodic Other aftercare (1 source) Encounter for therapeutic drug level monitoring; Translations: [Medication monitoring encounter] Onset: 01-20-2024 Episodic Other aftercare (4 sources) Post-discharge follow-up; Translations: [Hospital discharge follow-up] Other circulatory disease (20 sources) Ischemic hand; Translations: [Other disorder of circulatory system] Onset: 08-22-2017 08-22-2017 Episodic Other connective tissue disease (20 sources) Tendinitis of left rotator cuff; Translations: [Disorders of bursae and tendons in shoulder region, unspecified] Onset: 09-20-2022 09-20-2022 Episodic Other connective tissue disease (1 source) Adhesive capsulitis of left shoulder; Translations: [Adhesive capsulitis of left shoulder] Onset: 02-01-2022 Episodic Other connective tissue disease (2 sources) Other shoulder lesions, left shoulder; Translations: [Other shoulder lesions, left shoulder] Onset: 01-26-2022 Episodic Other connective tissue disease (20 sources) Disorder of skeletal muscle; Translations: [Other symptoms and signs involving the musculoskeletal system] Onset: 09-13-2011 02-24-2021 Episodic Other connective tissue disease (13 sources) Adhesive capsulitis of left shoulder; Translations: [Adhesive capsulitis of left shoulder] Onset: 09-20-2022 09-20-2022 Episodic Other connective tissue disease (13 sources) Biceps tendinitis; Translations: [Bicipital tendinitis, right shoulder] Onset: 07-28-2023 07-28-2023 Episodic Other connective tissue disease (3 sources) Bicipital tendinitis, right shoulder; Translations: [Bicipital tenosynovitis] Onset: 07-28-2023 07-28-2023 Episodic Other connective tissue disease (1 source) Other symptoms and signs involving the musculoskeletal system; Translations: [Muscular deconditioning] Onset: 02-24-2021 Episodic Other female genital disorders (20 sources) Abnormal uterine bleeding; Translations: [Other specified abnormal uterine and vaginal bleeding] Resolved: 07-07-2024 04-29-2010 Chronic Other female genital disorders (20 sources) Mass of uterine adnexa; Translations: [Other specified conditions associated with female genital organs and menstrual cycle] Onset: 03-07-2013 Resolved: 07-07-2024 06-06-2023 Episodic Other fractures (19 sources) Fracture of sixth thoracic vertebra; Translations: [Closed fracture of dorsal [thoracic] vertebra without mention of spinal cord injury] Onset: 09-20-2022 04-22-2022 Episodic Other fractures (1 source) Other fracture of T5-T6 vertebra, initial encounter for closed fracture; Translations: [Oth fracture of T5-T6 vertebra, init for clos fx] Onset: 04-22-2022 Episodic Other gastrointestinal disorders (20 sources) Dysphagia; Translations: [Dysphagia, unspecified] Onset: 06-18-2024 06-18-2024 Episodic Other liver diseases (20 sources) Enzyme level - finding; Translations: [Transaminitis] Onset: 03-07-2013 Resolved: 02-24-2021 06-29-2021 Episodic Other liver diseases (20 sources) Acute hepatic failure; Translations: [Acute and subacute hepatic failure without coma] Onset: 02-08-2021 Resolved: 02-24-2021 02-24-2021 Episodic Other lower respiratory disease (20 sources) Cough; Translations: [Cough] Onset: 09-20-2022 09-20-2022 Episodic Other lower respiratory disease (20 sources) Dyspnea on exertion; Translations: [Shortness of breath] Onset: 09-20-2022 09-20-2022 Episodic Other lower respiratory disease (1 source) Pleurodynia; Translations: [Pleurodynia] Onset: 04-22-2022 Episodic Other lower respiratory disease (1 source) Shortness of breath; Translations: [Shortness of breath] Onset: 04-17-2022 Episodic Other lower respiratory disease (20 sources) Abnormal sputum; Translations: [Abnormal sputum] Onset: 02-24-2021 Resolved: 07-07-2024 02-24-2021 Episodic Other lower respiratory disease (2 sources) Other disorders of lung; Translations: [Restrictive lung disease] Onset: 06-29-2021 Episodic Other lower respiratory disease (1 source) Other forms of dyspnea; Translations: [Dyspnea on exertion] Onset: 11-29-2023 Episodic Other nervous system disorders (20 sources) Postoperative pain ; Translations: [Other acute postprocedural pain] Onset: 07-03-2024 Resolved: 07-07-2024 07-03-2024 Episodic Other nervous system disorders (1 source) Other acute postprocedural pain; Translations: [Post-operative pain] Onset: 07-03-2024 Episodic Other non-traumatic joint disorders (20 sources) Pain in left knee; Translations: [Left knee pain] Onset: 09-20-2022 09-20-2022 Episodic Other non-traumatic joint disorders (16 sources) Pain in left shoulder; Translations: [Pain in joint, shoulder region] Onset: 01-26-2022 Episodic Other non-traumatic joint disorders (1 source) Effusion, left shoulder; Translations: [Effusion, left shoulder] Onset: 01-26-2022 Episodic Other non-traumatic joint disorders (12 sources) Pain in right knee; Translations: [Pain in joint, lower leg] Onset: 09-20-2022 09-20-2022 Episodic Other non-traumatic joint disorders (1 source) Pain in left knee; Translations: [Pain in left knee] Onset: 09-20-2022 09-20-2022 Episodic Other non-traumatic joint disorders (1 source) Pain in right knee; Translations: [Pain in right knee] Onset: 09-20-2022 09-20-2022 Episodic Other screening for suspected conditions (not mental disorders or infectious disease) (20 sources) Laboratory test result abnormal; Translations: [Patient encounter status] Onset: 08-15-2023 05-04-2023 Episodic Other skin disorders (20 sources) Skin lesion; Translations: [Unspecified disorder of skin and subcutaneous tissue] Onset: 09-20-2022 09-20-2022 Episodic Other skin disorders (2 sources) Actinic keratosis Onset: 11-12-2020 Episodic Other skin disorders (20 sources) Degenerative skin disorder; Translations: [Other specified disorders of the skin and subcutaneous tissue] Onset: 05-10-2005 05-08-2010 Episodic Other upper respiratory infections (20 sources) Sore throat symptom; Translations: [Acute pharyngitis] Onset: 09-20-2022 09-20-2022 Episodic Pathological fracture (20 sources) Pathological fracture of vertebra due to osteoporosis; Translations: [Age-related osteoporosis with current pathological fracture, vertebra(e), initial encounter for fracture] Onset: 01-13-2023 Resolved: 07-07-2024 01-13-2023 Episodic Phlebitis; thrombophlebitis and thromboembolism (17 sources) H/O: Deep vein thrombosis; Translations: [Personal history of other venous thrombosis and embolism] Onset: 07-03-2024 Resolved: 07-07-2024 07-07-2024 Episodic Prolapse of female genital organs (20 sources) Uterovaginal prolapse; Translations: [Uterovaginal prolapse, unspecified] Onset: 05-12-2010 Resolved: 07-07-2024 07-07-2024 Chronic Residual codes; unclassified (20 sources) Insomnia; Translations: [Insomnia, unspecified] Onset: 09-20-2022 09-20-2022 Episodic Residual codes; unclassified (3 sources) Disturbance in sleep behavior; Translations: [Sleep disorder, unspecified] Onset: 04-17-2012 04-17-2012 Episodic Residual codes; unclassified (16 sources) Expected difficult tracheal intubation; Translations: [Other specified health status] Onset: 07-02-2024 Resolved: 07-07-2024 07-07-2024 Episodic Residual codes; unclassified (1 source) Encounter for prophylactic measures, unspecified; Translations: [Encounter for deep vein thrombosis (DVT) prophylaxis] Onset: 07-02-2024 Episodic Residual codes; unclassified (1 source) Pain, unspecified; Translations: [Pain] Onset: 11-29-2023 Episodic Respiratory failure; insufficiency; arrest (adult) (20 sources) Hypercapnic respiratory failure; Translations: [Respiratory failure, unspecified with hypercapnia] Onset: 02-23-2021 Resolved: 02-24-2021 02-24-2021 Episodic Skin and subcutaneous tissue infections (12 sources) Cellulitis of right forearm; Translations: [Cellulitis of right upper limb] Onset: 09-08-2023 09-08-2023 Episodic Spondylosis; intervertebral disc disorders; other back problems (20 sources) Thoracic back pain; Translations: [Pain in thoracic spine] Onset: 09-19-2022 Resolved: 07-07-2024 09-19-2022 Episodic Superficial injury; contusion (1 source) Contusion of right front wall of thorax, initial encounter; Translations: [Contusion of right front wall of thorax, initial encounter] Onset: 04-17-2022 Episodic Unclassified (20 sources) SUMMARY Onset: 03-07-2013 Resolved: 07-07-2024 07-07-2024 Unclassified (12 sources) Onset: 06-06-2023 Resolved: 06-19-2024 06-06-2023 Unclassified (3 sources) History of reverse prosthetic total arthroplasty of right shoulder 08-13-2024 Viral infection (20 sources) Herpes zoster; Translations: [Herpes zoster without mention of complication] Onset: 09-20-2022 09-20-2022 Episodic NEGATED: Highlighted row has not occurred!Residual codes; unclassified (12 sources) Disease Episodic Results Test Name Value Interpretation Reference Range Facility CNOVon 11-14-[address] [facility] XR CHEST 2V FRONTAL/LATon XR CHEST 2V FRONTAL/LAT [facility] XR Chest PA and Lateralon IMPRESSION: No acute radiographic abnormality. Stable significant chronic findings of bronchiectasis, left greater than right Director Of Marketing Operations: PSCB Transcribe Date/Time: Nov 14 2024 4:12P Dictated by : EDDI SPEARS MD This examination was interpreted and the report reviewed and electronically signed by: EDDI SPEARS MD on Nov 14 2024 4:16PM [facility] DIVISION OF RADIOLOGY * * *Final Report* * * DATE OF EXAM: Nov 14 2024 9:46AM [id number] - XR CHEST 2V FRONTAL/LAT / PROCEDURE REASON: Pneumonia of left lower lobe due to infectious organism * * * * Physician Interpretation * * * * EXAMINATION: CHEST RADIOGRAPH (2 VIEW FRONTAL & LATERAL) CLINICAL HISTORY: Pneumonia of left lower lobe due to infectious organism MQ: XC2_6 EXAM DATE/TIME: 11/14/2024 9:46 AM COMPARISON: 08/29/2024 CT 11/29/2023 RESULT: Lines, tubes, and devices: None. Lungs and pleura: Left lower lobe extensive bronchiectasis is seen. Similar, left pronounced findings at the right lung base. Grossly stable .No consolidation. No lung mass. No pleural effusion. No pneumothorax. Cardiomediastinal silhouette: Normal cardiomediastinal silhouette. Bones and soft tissues: Severe degenerative change involving left shoulder. Right shoulder prosthesis is seen. DIVISION OF RADIOLOGY Provider, Martell Meredith [facility] - 11/14/2024 * * *Final Report* * * DATE OF EXAM: Nov 14 2024 9:46AM [id number] - XR CHEST 2V FRONTAL/LAT / PROCEDURE REASON: Pneumonia of left lower lobe due to infectious organism * * * * Physician Interpretation * * * * EXAMINATION: CHEST RADIOGRAPH (2 VIEW FRONTAL & LATERAL) CLINICAL HISTORY: Pneumonia of left lower lobe due to infectious organism MQ: [id number]_6 EXAM DATE/TIME: 11/14/2024 9:46 AM COMPARISON: 08/29/2024 CT 11/29/2023 RESULT: Lines, tubes, and devices: None. Lungs and pleura: Left lower lobe extensive bronchiectasis is seen. Similar, left pronounced findings at the right lung base. Grossly stable .No consolidation. No lung mass. No pleural effusion. No pneumothorax. Cardiomediastinal silhouette: Normal cardiomediastinal silhouette. Bones and soft tissues: Severe degenerative change involving left shoulder. Right shoulder prosthesis is seen. IMPRESSION IMPRESSION: No acute radiographic abnormality. Stable significant chronic findings of bronchiectasis, left greater than right Director Of Marketing Operations: PSCB Transcribe Date/Time: Nov 14 2024 4:12P Dictated by : EDDI SPEARS MD This examination was interpreted and the report reviewed and electronically signed by: EDDI SPEARS MD on Nov 14 2024 4:16PM EST [facility] Radiology Study observation (narrative) [facility] XR Chest PA and LateralOrder ed By: [facility] Provider on 11-14-2024 [facility] BD DXA - AXIAL SKELETONon BD DXA - AXIAL SKELETON [facility] BD DXA TRABECLR BONE SCORE ( TBS)on 11-09-2024 BD DXA TRABECLR BONE SCORE (TBS) [facility] CNPNon 10-16-[address] [facility] CNOVon 09-25-[address] [facility] OXIMETRY WITH AMBULATIONon 0 09-21-2024 Evy Alves RPF T 09/21/2024 11:10 AM RESPIRATORY THERAPY OXIMETRY WITH AMBULATION Oximetry with Ambulation Test for This Encounter O2 Device O2 Adapter NC O2 Flow SpO2% HR Activity Ft Walked (ft) Time (min) Avg Speed (MPH) R/A 100 65 Resting R/A 97 106 Walking, usual pace 375 3 1.42 R/A 98 106 Walking, fastest pace 385 3 1.46 General Information Pulse Oximetry Site Total Time Spent Walking Assistance/O2 Supply Carrier Forehead 30 None NAME: NIMO Preston PATIENT NAME: Tennille Ortiz DATE: September 21, 2024 TIME: 11:09 AM Comment: [facility] CNPNon 09-14-[address] [facility] CNOVon 08-29-[address] [facility] XR CHEST 2V FRONTAL/LATon XR CHEST 2V FRONTAL/LAT [facility] Chest 1 View (Portable)on Chest 1 View (Portable) [facility] Imaging Services [address] [place] [id number] Chest 1 View (Portable) MR#: [id number] Acct: [id number] Name: TENNILLE ORTIZ Rep #: [id number] : 1965 F 59 From: Luis Angel watkins MD PCP: Dr. Evan De MD Status: ADM IN Study: Chest 1 View (Portable) Date of Exam: 08/21/24 Exam# [id number] Ordering Dr: Chele Quesada MD PROCEDURE: CHEST 1 VIEW (PORTABLE) REASON FOR EXAM: History of right middle lobe consolidation. Follow-up examination. TECHNIQUE: Frontal view of the chest. COMPARISON: Comparison is made with prior study dated August 18, 2024. FINDINGS: Persistent right middle lobe infiltrate. Progressive increased markings at the left lung base suggestive of left lower lobe infiltrate superimposed on scarring. Blunting of the left costophrenic angle. Calcification of the aortic arch. Status post right reverse shoulder replacement. 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 RAD/Chest 1 View (Portable) IMPRESSION: Persistent right middle lobe infiltrate as well as infiltration in the left lower lobe superimposed on scarring with blunting of the left costophrenic angle. Follow-up recommended. Reading Location: [place] [address] CC: Dr. Evan De MD; Dr. Chele Quesada MD Director Of Marketing Operations: Signed Normal [facility] Discharge Instructionon 08-04 Discharge Instruction [facility] Medical Records Department [address] [place] [id number] Instructions for Home/Discharge Instructions 08/21/24 1059 MR#: [id number] Acct: [id number] Name: TENNILLE ORTIZ Rep #: [id number] : 1965 59 From: Chele Quesada MD PCP: Dr. Evan De MD Status:ADM IN Discharge Instructions Diet Discharge Diet: Low fat / Low cholesterol DC O2, CPAP, BIPAP needs RN Home O2 Qualification: Home O2 Qualification: Is the patient on home oxygen No 08/20/24 10:00 Home O2 Qualification: AT REST 1- Pulse Ox at rest 96 08/20/24 10:00 Home O2 Qualification: WITH AMBULATION 1- Pulse Ox with ambulation 89 08/20/24 10:00 1- Oxygen Flow Rate with 0 08/20/24 10:00 ambulation Home O2 Discharge instructions: No Dressing / Incision Discharge Activity: Return to Normal Activity Dressing / Incision Call your doctor if you observe: Fever of 101 or Higher, Shortness of breath, Dizziness, Fainting spells, Swelling in the ankles, Chest pain and Increased palpitations (irregular heartbeat) Follow Up Care Test Results: Test results from this visit will be discussed in further detail at your follow-up appointment, if applicable. Discharge Plan Admission Admit Date/Time: 08/18/24 07:25 Attending Provider: Chele Quesada Primary Care Provider: Evan De Discharge Orders/Prescriptions Prescriptions: New prednisone 10 mg tablet 10 mg PO DAILY Qty: 32 0RF Rx Instructions: Take 4 tablets daily for 3 days then 3 tablets daily for 3 days then 2 tablets daily for 3 days then 1 tablet daily for 3 days then half tablet daily for 4 days levofloxacin 750 mg Tablet 750 mg PO DAILY 6 Days Qty: 6 0RF Continued albuterol sulfate 2.5 MG/3 ML solution for nebulization 2.5 mg inhalation Q6HWA.RT prednisone 5 MG tablet 4 mg PO DAILY albuterol sulfate [Ventolin HFA] 1 INHALER inhaler 1 - 2 puff inhalation Q6H PRN PRN (Reason: Shortness Of Breath) Centrum Silver 1 EACH tablet 1 ea PO DAILY trazodone 50 mg Tablet 50 mg PO QHS PRN (Reason: depression) levothyroxine 100 mcg Tablet 100 mcg PO DAILY cholecalciferol (vitamin D3) 100 mcg (4,000 unit) Capsule 100 mcg PO QODAY Arthrozene 1 cap PO/SL DAILY acetaminophen 500 mg Tablet 1,000 mg PO TID Qty: 100 0RF Rx Instructions: Do not take more than 3000 mg Tylenol in a 24-hour period. ropinirole 1 mg tablet 1 mg PO BID rosuvastatin 20 mg tablet 20 mg PO DAILY paroxetine HCl [Paxil] 10 mg tablet 10 mg PO DAILY Referrals / Follow Up: Evan De MD [Primary Care Provider] - Within 1 Week Disposition Disposition (needs filled in before D/C Order can be placed): Home, Self Care 08/21/24 1241 Chele Quesada MD CC: Dr. Evan De MD Signed Normal [facility] Basic Metabolic Profile (BMP )on 08-20-2024 BUN/CRE 56.9 RATIO High 10-20 [facility] Comment on above: Performed By: #### L 500.2500, L100.0100 #### [facility] [address] [place], [address] CA,Total 9.2 mg/dL Normal 8.5-10.1 [facility] Comment on above: Performed By: #### L 500.2500, L100.0100 #### [facility] [address] [place], [address] Chloride [Moles/Vol] 102 mmol/L Normal 98-107 [facility] Comment on above: Performed By: #### L 500.2500, L100.0100 #### [facility] [address] [place], [address] CO2 [Moles/Vol] 33.0 mmol/L High 21.0-32.0 [facility] Comment on above: Performed By: #### L 500.2500, L100.0100 #### [facility] [address] [place], [address] Creatinine [Mass/Vol] 0.30 mg/dL Low 0.55-1.02 [facility] Comment on above: Result Comment: The validity of the calculated GFR GFRAA in patients over 70 years has not been determined. Clinical correlation is essential. Performed By: #### L 500.2500, L100.0100 #### [facility] [address] [place], [address] ECRCL 127.09 ml/min Normal [facility] Comment on above: Performed By: #### L 500.2500, L100.0100 #### [facility] [address] [place], [address] EST GFR - AA 292 mL/min Normal >60 [facility] Comment on above: Result Comment: Afri can Iraqi GFR Calc Performed By: #### L 500.2500, L100.0100 #### [facility] [address] [place], [address] GAP 4 Low 5-15 [facility] Comment on above: Performed By: #### L 500.2500, L100.0100 #### [facility] [address] [place], [address] GFR/1.73 sq M.predicted among non-blacks MDRD (S/P/Bld) [Vol rate/Area] 242 mL/min/{1.73_m2} Normal >60 [facility] Comment on above: Result Comment: Non- GFR Calc Performed By: #### L 500.2500, L100.0100 #### [facility] [address] [place], [address] Glucose [Mass/Vol] 126 mg/dL High 74-106 [facility] Comment on above: Result Comment: Fast ing Glucose result greater than or equal to 126 mg/dL suggests DIABETES MELLITUS per A.D.A. criteria. Performed By: #### L 500.2500, L100.0100 #### [facility] [address] [place], [address] Potassium [Moles/Vol] 3.7 mmol/L Normal 3.5-5.1 [facility] Comment on above: Performed By: #### L 500.2500, L100.0100 #### [facility] [address] [place], [address] Sodium [Moles/Vol] 138 mmol/L Normal 136-145 [facility] Comment on above: Performed By: #### L 500.2500, L100.0100 #### [facility] [address] [place], [address] Urea nitrogen [Mass/Vol] 17 mg/dL Normal 7-18 [facility] Comment on above: Performed By: #### L 500.2500, L100.0100 #### [facility] [address] [place], [address] CBC W/Diff, Automatedon 08-04 Absolute Lymph 0.28 X10 3/uL Low 0.83-4.51 [facility] Comment on above: Performed By: #### L 500.2500, L100.0100 #### [facility] [address] [place], [address] Absolute Neut 3.1 X10 3/uL Normal 2.0-7.7 [facility] Comment on above: Performed By: #### L 500.2500, L100.0100 #### [facility] [address] [place], [address] Basophils/100 WBC (Bld) 0.0 % Normal 0-1 [facility] Comment on above: Performed By: #### L 500.2500, L100.0100 #### [facility] [address] [place], [address] Eosinophils/100 WBC (Bld) 0.0 % Normal 0-5 [facility] Comment on above: Performed By: #### L 500.2500, L100.0100 #### [facility] [address] [place], [address] Erythrocyte distribution width (RBC) [Ratio] 15.5 % High 11.6-14.6 [facility] Comment on above: Performed By: #### L 500.2500, L100.0100 #### [facility] [address] [place], [address] Hematocrit (Bld) [Volume fraction] 37.3 % Normal 37-47 [facility] Comment on above: Performed By: #### L 500.2500, L100.0100 #### [facility] [address] [place], [address] Hemoglobin (Bld) [Mass/Vol] 11.2 g/dL Low 12.0-15.0 [facility] Comment on above: Performed By: #### L 500.2500, L100.0100 #### [facility] [address] [place], [address] IG% 0.300 Normal 0.0-0.9 [facility] Comment on above: Result Comment: IG% - Immature Granulocytes (promyelocytes, myelocytes and metamyelocytes) > 1% indicates that a LEFT SHIFT is Present. Performed By: #### L 500.2500, L100.0100 #### [facility] [address] [place], [address] Lymphocytes/100 WBC (Bld) 7.5 % Low 19-41 [facility] Comment on above: Performed By: #### L 500.2500, L100.0100 #### [facility] [address] [place], [address] MCH (RBC) [Entitic mass] 28.1 pg Normal 27.0-32.0 [facility] Comment on above: Performed By: #### L 500.2500, L100.0100 #### [facility] [address] [place], [address] MCHC (RBC) [Mass/Vol] 30.0 g/dL Low 32-36 [facility] Comment on above: Performed By: #### L 500.2500, L100.0100 #### [facility] [address] [place], [address] MCV (RBC) [Entitic vol] 93.7 fL Normal 81-99 [facility] Comment on above: Performed By: #### L 500.2500, L100.0100 #### [facility] [address] [place], [address] Monocytes/100 WBC (Bld) 8.9 % Normal 0-10 [facility] Comment on above: Performed By: #### L 500.2500, L100.0100 #### [facility] [address] [place], [address] Neutrophils/100 WBC (Bld) 83.3 % High 47-70 [facility] Comment on above: Performed By: #### L 500.2500, L100.0100 #### [facility] [address] [place], [address] Nucleated RBC (Bld) [#/Vol] 0 10*3/uL Normal 0-5 [facility] Comment on above: Performed By: #### L 500.2500, L100.0100 #### [facility] [address] [place], [address] Platelet mean volume (Bld) [Entitic vol] 10.8 fL Normal 6.2-12.0 [facility] Comment on above: Performed By: #### L 500.2500, L100.0100 #### [facility] [address] [place], [address] Platelets (Bld) [#/Vol] 214 10*3/uL Normal 150-450 [facility] Comment on above: Performed By: #### L 500.2500, L100.0100 #### [facility] [address] [place], [address] RBC (Bld) [#/Vol] 3.98 10*6/uL Low 4.2-5.4 [facility] Comment on above: Performed By: #### L 500.2500, L100.0100 #### [facility] [address] [place], [address] RDW SD 52.7 fl High 35.1-43.9 [facility] Comment on above: Performed By: #### L 500.2500, L100.0100 #### [facility] [address] [place], [address] WBC (Bld) [#/Vol] 3.7 10*3/uL Low 4.4-11.0 [facility] Comment on above: Performed By: #### L 500.2500, L100.0100 #### [facility] [address] [place], [address] Basic Metabolic Profile (BMP )on 08-19-2024 BUN/CRE 53.2 RATIO High 10-20 [facility] Comment on above: Performed By: #### L 100.0100, L500.2500 ####[facility] [address] [place], [address] CA,Total 9.2 mg/dL Normal 8.5-10.1 [facility] Comment on above: Performed By: #### L 100.0100, L500.2500 ####[facility] [address] [place], [address] Chloride [Moles/Vol] 97 mmol/L Low 98-107 [facility] Comment on above: Performed By: #### L 100.0100, L500.2500 ####[facility] [address] [place], [address] CO2 [Moles/Vol] 33.0 mmol/L High 21.0-32.0 [facility] Comment on above: Performed By: #### L 100.0100, L500.2500 ####[facility] [address] [place], [address] Creatinine [Mass/Vol] 0.26 mg/dL Low 0.55-1.02 [facility] Comment on above: Result Comment: The validity of the calculated GFR GFRAA in patients over 70 years has not been determined. Clinical correlation is essential. Performed By: #### L 100.0100, L500.2500 ####[facility] [address] [place], [address] ECRCL 146.64 ml/min Normal [facility] Comment on above: Performed By: #### L 100.0100, L500.2500 ####[facility] [address] [place], [address] EST GFR - AA 339 mL/min Normal >60 [facility] Comment on above: Result Comment: Afri can Iraqi GFR Calc Performed By: #### L 100.0100, L500.2500 ####[facility] [address] [place], [address] GAP 7 Normal 5-15 [facility] Comment on above: Performed By: #### L 100.0100, L500.2500 ####[facility] [address] [place], [address] GFR/1.73 sq M.predicted among non-blacks MDRD (S/P/Bld) [Vol rate/Area] 280 mL/min/{1.73_m2} Normal >60 [facility] Comment on above: Result Comment: Non- GFR Calc Performed By: #### L 100.0100, L500.2500 ####[facility] [address] [place], [address] Glucose [Mass/Vol] 132 mg/dL High 74-106 [facility] Comment on above: Result Comment: Fast ing Glucose result greater than or equal to 126 mg/dL suggests DIABETES MELLITUS per A.D.A. criteria. Performed By: #### L 100.0100, L500.2500 ####[facility] [address] [place], [address] Potassium [Moles/Vol] 4.2 mmol/L Normal 3.5-5.1 [facility] Comment on above: Result Comment: Slig ht Hemolysis, Result may be falsely increased. Performed By: #### L 100.0100, L500.2500 ####[facility] [address] [place], [address] Sodium [Moles/Vol] 137 mmol/L Normal 136-145 [facility] Comment on above: Performed By: #### L 100.0100, L500.2500 ####[facility] [address] [place], [address] Urea nitrogen [Mass/Vol] 14 mg/dL Normal 7-18 [facility] Comment on above: Performed By: #### L 100.0100, L500.2500 ####[facility] [address] [place], [address] CBC W/Diff, Automatedon 02-1 6-2025 Absolute Lymph 0.30 X10 3/uL Low 0.83-4.51 [facility] Comment on above: Performed By: #### L 100.0100, L500.2500 ####[facility] [address] [place], [address] Absolute Neut 2.2 X10 3/uL Normal 2.0-7.7 [facility] Comment on above: Performed By: #### L 100.0100, L500.2500 ####[facility] [address] [place], [address] Basophils/100 WBC (Bld) 0.0 % Normal 0-1 [facility] Comment on above: Performed By: #### L 100.0100, L500.2500 ####[facility] [address] [place], [address] Eosinophils/100 WBC (Bld) 0.0 % Normal 0-5 [facility] Comment on above: Performed By: #### L 100.0100, L500.2500 ####[facility] [address] [place], [address] Erythrocyte distribution width (RBC) [Ratio] 15.0 % High 11.6-14.6 [facility] Comment on above: Performed By: #### L 100.0100, L500.2500 ####[facility] [address] [place], [address] Hematocrit (Bld) [Volume fraction] 39.0 % Normal 37-47 [facility] Comment on above: Performed By: #### L 100.0100, L500.2500 ####[facility] [address] [place], [address] Hemoglobin (Bld) [Mass/Vol] 11.7 g/dL Low 12.0-15.0 [facility] Comment on above: Performed By: #### L 100.0100, L500.2500 ####[facility] [address] [place], [address] IG% 0.400 Normal 0.0-0.9 [facility] Comment on above: Result Comment: IG% - Immature Granulocytes (promyelocytes, myelocytes and metamyelocytes) > 1% indicates that a LEFT SHIFT is Present. Performed By: #### L 100.0100, L500.2500 ####[facility] [address] [place], [address] Lymphocytes/100 WBC (Bld) 11.3 % Low 19-41 [facility] Comment on above: Performed By: #### L 100.0100, L500.2500 ####[facility] [address] [place], [address] MCH (RBC) [Entitic mass] 28.6 pg Normal 27.0-32.0 [facility] Comment on above: Performed By: #### L 100.0100, L500.2500 ####[facility] [address] [place], [address] MCHC (RBC) [Mass/Vol] 30.0 g/dL Low 32-36 [facility] Comment on above: Performed By: #### L 100.0100, L500.2500 ####[facility] [address] [place], [address] MCV (RBC) [Entitic vol] 95.4 fL Normal 81-99 [facility] Comment on above: Performed By: #### L 100.0100, L500.2500 ####[facility] [address] [place], [address] Monocytes/100 WBC (Bld) 6.0 % Normal 0-10 [facility] Comment on above: Performed By: #### L 100.0100, L500.2500 ####[facility] [address] [place], [address] Neutrophils/100 WBC (Bld) 82.3 % High 47-70 [facility] Comment on above: Performed By: #### L 100.0100, L500.2500 ####[facility] [address] [place], [address] Nucleated RBC (Bld) [#/Vol] 0 10*3/uL Normal 0-5 [facility] Comment on above: Performed By: #### L 100.0100, L500.2500 ####[facility] [address] [place], [address] Platelet mean volume (Bld) [Entitic vol] 11.5 fL Normal 6.2-12.0 [facility] Comment on above: Performed By: #### L 100.0100, L500.2500 ####[facility] [address] [place], [address] Platelets (Bld) [#/Vol] 159 10*3/uL Normal 150-450 [facility] Comment on above: Performed By: #### L 100.0100, L500.2500 ####[facility] [address] [place], [address] RBC (Bld) [#/Vol] 4.09 10*6/uL Low 4.2-5.4 [facility] Comment on above: Performed By: #### L 100.0100, L500.2500 ####[facility] [address] [place], [address] RDW SD 52.6 fl High 35.1-43.9 [facility] Comment on above: Performed By: #### L 100.0100, L500.2500 ####[facility] [address] [place], [address] WBC (Bld) [#/Vol] 2.7 10*3/uL Low 4.4-11.0 [facility] Comment on above: Performed By: #### L 100.0100, L500.2500 ####[facility] [address] [place], [address] Basic Metabolic Profile (BMP )on 08-18-2024 BUN/CRE 34.7 RATIO High 10-20 [facility] Comment on above: Performed By: #### L 500.2500, L501.5200, L100.0100 #### [facility] [address] [place], [address] CA,Total 8.9 mg/dL Normal 8.5-10.1 [facility] Comment on above: Performed By: #### L 500.2500, L501.5200, L100.0100 #### [facility] [address] [place], [address] Chloride [Moles/Vol] 92 mmol/L Low 98-107 [facility] Comment on above: Performed By: #### L 500.2500, L501.5200, L100.0100 #### [facility] [address] [place], [address] CO2 [Moles/Vol] 37.0 mmol/L High 21.0-32.0 [facility] Comment on above: Performed By: #### L 500.2500, L501.5200, L100.0100 #### [facility] [address] [place], [address] Creatinine [Mass/Vol] 0.29 mg/dL Low 0.55-1.02 [facility] Comment on above: Result Comment: The validity of the calculated GFR GFRAA in patients over 70 years has not been determined. Clinical correlation is essential. Performed By: #### L 500.2500, L501.5200, L100.0100 #### [facility] [address] [place], [address] ECRCL 125.71 ml/min Normal [facility] Comment on above: Performed By: #### L 500.2500, L501.5200, L100.0100 #### [facility] [address] [place], [address] EST GFR - AA 305 mL/min Normal >60 [facility] Comment on above: Result Comment: Afri can Iraqi GFR Calc Performed By: #### L 500.2500, L501.5200, L100.0100 #### [facility] [address] [place], [address] GAP 6 Normal 5-15 [facility] Comment on above: Performed By: #### L 500.2500, L501.5200, L100.0100 #### [facility] [address] [place], [address] GFR/1.73 sq M.predicted among non-blacks MDRD (S/P/Bld) [Vol rate/Area] 252 mL/min/{1.73_m2} Normal >60 [facility] Comment on above: Result Comment: Non- GFR Calc Performed By: #### L 500.2500, L501.5200, L100.0100 #### [facility] [address] [place], [address] Glucose [Mass/Vol] 85 mg/dL Normal 74-106 [facility] Comment on above: Performed By: #### L 500.2500, L501.5200, L100.0100 #### [facility] [address] [place], [address] Potassium [Moles/Vol] 3.9 mmol/L Normal 3.5-5.1 [facility] Comment on above: Result Comment: Slig ht Hemolysis, Result may be falsely increased. Performed By: #### L 500.2500, L501.5200, L100.0100 #### [facility] [address] [place], [address] Sodium [Moles/Vol] 135 mmol/L Low 136-145 [facility] Comment on above: Performed By: #### L 500.2500, L501.5200, L100.0100 #### [facility] [address] [place], [address] Urea nitrogen [Mass/Vol] 10 mg/dL Normal 7-18 [facility] Comment on above: Performed By: #### L 500.2500, L501.5200, L100.0100 #### [facility] [address] [place], [address] CBC W/Diff, Automatedon 08-04-2024 Absolute Lymph 0.43 X10 3/uL Low 0.83-4.51 [facility] Comment on above: Order Comment: REDRA W. PREVIOUS SPECIMEN REJECTED DUE TOCLOT. 08/18/24 0723 Jaimie Myers. Performed By: #### L 100.0100 ####[facility] [address] [place], [address] Absolute Neut 5.3 X10 3/uL Normal 2.0-7.7 [facility] Comment on above: Order Comment: REDRA W. PREVIOUS SPECIMEN REJECTED DUE TOCLOT. 08/18/24 0723 Jaimie Myers. Performed By: #### L 100.0100 ####[facility] [address] [place], [address] Basophils/100 WBC (Bld) 0.2 % Normal 0-1 [facility] Comment on above: Order Comment: REDRA W. PREVIOUS SPECIMEN REJECTED DUE TOCLOT. 08/18/24 0723 Jaimie Myers. Performed By: #### L 100.0100 ####[facility] [address] [place], [address] Eosinophils/100 WBC (Bld) 0.2 % Normal 0-5 [facility] Comment on above: Order Comment: REDRA W. PREVIOUS SPECIMEN REJECTED DUE TOCLOT. 08/18/24 0723 Jaimie Myers. Performed By: #### L 100.0100 ####[facility] [address] [place], [address] Erythrocyte distribution width (RBC) [Ratio] 14.9 % High 11.6-14.6 [facility] Comment on above: Order Comment: REDRA W. PREVIOUS SPECIMEN REJECTED DUE TOCLOT. 08/18/2423 Jaimie Myers. Performed By: #### L 100.0100 ####[facility] [address] [place], [address] Hematocrit (Bld) [Volume fraction] 35.4 % Low 37-47 [facility] Comment on above: Order Comment: REDRA W. PREVIOUS SPECIMEN REJECTED DUE TOCLOT. 08/18/24722 Jaimie Myers. Performed By: #### L 100.0100 ####[facility] [address] [place], [address] Hemoglobin (Bld) [Mass/Vol] 10.9 g/dL Low 12.0-15.0 [facility] Comment on above: Order Comment: REDRA W. PREVIOUS SPECIMEN REJECTED DUE TOCLOT. 08/18/2423 Jaimie Myers. Performed By: #### L 100.0100 ####[facility] [address] [place], [address] IG% 0.200 Normal 0.0-0.9 [facility] Comment on above: Order Comment: REDRA W. PREVIOUS SPECIMEN REJECTED DUE TOCLOT. 08/18/2423 Jaimie Myers. Result Comment: IG% - Immature Granulocytes (promyelocytes, myelocytes and metamyelocytes) > 1% indicates that a LEFT SHIFT is Present. Performed By: #### L 100.0100 ####[facility] [address] [place], [address] Lymphocytes/100 WBC (Bld) 7.2 % Low 19-41 [facility] Comment on above: Order Comment: REDRA W. PREVIOUS SPECIMEN REJECTED DUE TOCLOT. 08/18/2423 Jaimie Myers. Performed By: #### L 100.0100 ####[facility] [address] [place], [address] MCH (RBC) [Entitic mass] 29.5 pg Normal 27.0-32.0 [facility] Comment on above: Order Comment: REDRA W. PREVIOUS SPECIMEN REJECTED DUE TOCLOT. 08/18/2423 Jaimie Myers. Performed By: #### L 100.0100 ####[facility] [address] [place], [address] MCHC (RBC) [Mass/Vol] 30.8 g/dL Low 32-36 [facility] Comment on above: Order Comment: REDRA W. PREVIOUS SPECIMEN REJECTED DUE TOCLOT. 08/18/2423 Jaimie Myers. Performed By: #### L 100.0100 ####[facility] [address] [place], [address] MCV (RBC) [Entitic vol] 95.7 fL Normal 81-99 [facility] Comment on above: Order Comment: REDRA W. PREVIOUS SPECIMEN REJECTED DUE TOCLOT. 08/18/2423 Jaimie Myers. Performed By: #### L 100.0100 ####[facility] [address] [place], [address] Monocytes/100 WBC (Bld) 4.0 % Normal 0-10 [facility] Comment on above: Order Comment: REDRA W. PREVIOUS SPECIMEN REJECTED DUE TOCLOT. 08/18/2423 Jaimie Myers. Performed By: #### L 100.0100 ####[facility] [address] [place], [address] Neutrophils/100 WBC (Bld) 88.2 % High 47-70 [facility] Comment on above: Order Comment: REDRA W. PREVIOUS SPECIMEN REJECTED DUE TOCLOT. 08/18/2423 Jaimie Myers. Performed By: #### L 100.0100 ####[facility] [address] [place], [address] Nucleated RBC (Bld) [#/Vol] 0 10*3/uL Normal 0-5 [facility] Comment on above: Order Comment: REDRA W. PREVIOUS SPECIMEN REJECTED DUE TOCLOT. 08/18/24722 Jaimie Myers. Performed By: #### L 100.0100 ####[facility] [address] [place], [address] Platelet mean volume (Bld) [Entitic vol] 10.3 fL Normal 6.2-12.0 [facility] Comment on above: Order Comment: REDRA W. PREVIOUS SPECIMEN REJECTED DUE TOCLOT. 08/18/24722 Jaimie Myers. Performed By: #### L 100.0100 ####[facility] [address] [place], [address] Platelets (Bld) [#/Vol] 165 10*3/uL Normal 150-450 [facility] Comment on above: Order Comment: REDRA W. PREVIOUS SPECIMEN REJECTED DUE TOCLOT. 08/18/24722 Jaimie Myers. Performed By: #### L 100.0100 ####[facility] [address] [place], [address] RBC (Bld) [#/Vol] 3.70 10*6/uL Low 4.2-5.4 [facility] Comment on above: Order Comment: REDRA W. PREVIOUS SPECIMEN REJECTED DUE TOCLOT. 08/18/24722 Jaimie Myers. Performed By: #### L 100.0100 ####[facility] [address] [place], [address] RDW SD 52.5 fl High 35.1-43.9 [facility] Comment on above: Order Comment: REDRA W. PREVIOUS SPECIMEN REJECTED DUE TOCLOT. 08/18/24722 Jaimie Myers. Performed By: #### L 100.0100 ####[facility] [address] [place], [address] WBC (Bld) [#/Vol] 6.0 10*3/uL Normal 4.4-11.0 [facility] Comment on above: Order Comment: NORBERTO Mederos. PREVIOUS SPECIMEN REJECTED DUE TOCLOT. 08/18/24722 Jaimie Myers. Performed By: #### L 100.0100 ####[facility] [address] [place], [address] Absolute Neut Normal 2.0-7.7 [facility] Comment on above: Result Comment: This specimen has been REJECTED due to Laboratory criteria: Clotted. LYNDA HIGUERA has been notified of need of recollection. 08/18/24721 Jaimieclarisa Myers Performed By: #### L 500.2500, L501.5200, L100.0100 #### [facility] [address] [place], [address] HCT Normal 37-47 [facility] Comment on above: Result Comment: This specimen has been REJECTED due to Laboratory criteria: Clotted. LYNDA HIGUERA has been notified of need of recollection. 08/18/24721 Jaimieclarisa Myers Performed By: #### L 500.2500, L501.5200, L100.0100 #### [facility] [address] [place], [address] HGB Normal 12.0-15.0 [facility] Comment on above: Result Comment: This specimen has been REJECTED due to Laboratory criteria: Clotted. LYNDA HIGUERA has been notified of need of recollection. 08/18/24721 Jaimieclarisa Myers Performed By: #### L 500.2500, L501.5200, L100.0100 #### [facility] [address] [place], [address] MCH Normal 27.0-32.0 [facility] Comment on above: Result Comment: This specimen has been REJECTED due to Laboratory criteria: Clotted. LYNDA HIGUERA has been notified of need of recollection. 08/18/24721 Jaimie Myers Performed By: #### L 500.2500, L501.5200, L100.0100 #### [facility] [address] [place], [address] MCHC Normal 32-36 [facility] Comment on above: Result Comment: This specimen has been REJECTED due to Laboratory criteria: Clotted. LYNDA HIGUERA has been notified of need of recollection. 08/18/24721 Jaimie Myers Performed By: #### L 500.2500, L501.5200, L100.0100 #### [facility] [address] [place], [address] MCV Normal 81-99 [facility] Comment on above: Result Comment: This specimen has been REJECTED due to Laboratory criteria: Clotted. LYNDA HIGUERA has been notified of need of recollection. 08/18/24721 Jaimie Myers Performed By: #### L 500.2500, L501.5200, L100.0100 #### [facility] [address] [place], [address] NEUT% Normal 47-70 [facility] Comment on above: Result Comment: This specimen has been REJECTED due to Laboratory criteria: Clotted. LYNDA HIGUERA has been notified of need of recollection. 08/18/24721 Jaimie Myers Performed By: #### L 500.2500, L501.5200, L100.0100 #### [facility] [address] [place], [address] PLT Normal 150-450 [facility] Comment on above: Result Comment: This specimen has been REJECTED due to Laboratory criteria: Clotted. LYNDA HIGUERA has been notified of need of recollection. 08/18/24721 Jaimie Myers Performed By: #### L 500.2500, L501.5200, L100.0100 #### [facility] [address] [place], [address] RBC Normal 4.2-5.4 [facility] Comment on above: Result Comment: This specimen has been REJECTED due to Laboratory criteria: Clotted. LYNDA KALEN has been notified of need of recollection. 08/18/24721 Jaimie Myers Performed By: #### L 500.2500, L501.5200, L100.0100 #### [facility] [address] [place], [address] RDW CV Normal 11.6-14.6 [facility] Comment on above: Result Comment: This specimen has been REJECTED due to Laboratory criteria: Clotted. LYNDA KALEN has been notified of need of recollection. 08/18/24721 Jaimie Myers Performed By: #### L 500.2500, L501.5200, L100.0100 #### [facility] [address] [place], [address] RDW SD Normal 35.1-43.9 [facility] Comment on above: Result Comment: This specimen has been REJECTED due to Laboratory criteria: Clotted. LYNDA KALEN has been notified of need of recollection. 08/18/24721 Jaimie Myers Performed By: #### L 500.2500, L501.5200, L100.0100 #### [facility] [address] [place], [address] WBC Normal 4.4-11.0 [facility] Comment on above: Result Comment: This specimen has been REJECTED due to Laboratory criteria: Clotted. LYNDA COOPERMERS has been notified of need of recollection. 08/18/24721 Jaimie Myers Performed By: #### L 500.2500, L501.5200, L100.0100 #### [facility] [address] [place], [address] Chest PA and Lateralon 08-18 Chest PA and Lateral [facility] [address] [place] [address] Chest PA and Lateral MR#: [id number] Acct: [id number] Name: TENNILLE ORTIZ Rep #: [id number] : 1965 F 59 From: Rodolfo Roman i, DO PCP: Dr. Evan De MD Status: REG ER Study: Chest PA and Lateral Date of Exam: 08/18/24 Exam# [id number] Ordering Dr: Christopher Jolley DO PROCEDURE: PA and lateral chest radiographs, two views REASON FOR EXAM: Cough TECHNIQUE: AP and lateral chest radiographs were obtained. COMPARISON: 04/03/2023 FINDINGS: The cardiomediastinal silhouette is similar. Bones are osteopenic with degenerative changes in the spine. Interval placement of right total shoulder arthroplasty. The lungs appear emphysematous. No pneumothorax or pulmonary vascular congestion. Some coarse markings at the left lung base are similar, possible chronic interstitial lung disease. There is new patchy opacity at the medial right lung base, concerning for right lower lobe pneumonia. RAD/Chest PA and Lateral IMPRESSION: Probable pulmonary emphysema. New patchy opacity medial right lung base, concerning for right lower lobe pneumonia. Recommend continued radiologic follow-up to document resolution. Some coarse interstitial markings at the left lung base are relatively similar to the 2022 study and could represent a component of chronic interstitial lung disease. [facility]: Dr. Evan De MD; Christopher Jolley DO Director Of Marketing Operations: Signed Normal [facility] Emergency Department Summary on 08-18-2024 Emergency Department Summary [facility] Medical Records Department [address] [place] [id number] Emergency Department Summary 08/18/24 MR#: [id number] Acct: [id number] Name: TENNILLE ORTIZ Rep #: [id number] : 1965 59 From: Christopher Jolley DO PCP: Dr. Evan De MD Status:REG ER Location: ED HPI History of Present Illness Chief Complaint: Cough Informant: patient and family Narrative Narrative: Patient is a 59-year-old female with past medical history of polymyositis scleroderma and restrictive lung disease. She states she has had 3 to 5 days of increasing congestion cough and shortness of breath. Her family member was recently sick with influenza. The patient states she does not normally require supplemental oxygen at baseline. She reports that with her worsening cough and shortness of breath sensation she is concerned that she may have developed pneumonia or a repeat episode of mucous plugging and with this comes in for evaluation. [facility] Medical History Wears glasses Broken teeth Depression Anxiety Hypoglycemia History of steroid therapy Arthritis High cholesterol Restless legs Neck pain Scleroderma Polymyositis Difficulty swallowing Restrictive lung disease Non-smoker Asthma History of echocardiogram History of stress test History of CHF (congestive heart failure) Home Medications ???Medication ???Instructions ???Recorded ???Last Taken ???Type albuterol sulfate 2.5 mg/3 mL 2.5 mg inhalation Q6HWA.RT asthma 09/23/13 02/04/21 History (0.083 %) solution for nebulization albuterol sulfate 90 mcg/actuation 1 - 2 puff inhalation Q6H PRN [place] N 09/23/13 02/04/21 History aerosol inhaler (Ventolin HFA) Shortness Of Breath iwnootsd-ogh-ytdah acid 0.4 1 ea PO DAILY 09/23/13 02/04/21 Hi story mg-lycopene 300 mcg-lutein 250 mcg tablet (Centrum Silver) prednisone 5 mg tablet 4 mg PO DAILY 09/23/13 02/04/21 Hi story cholecalciferol (vitamin D3) 100 100 mcg PO QODAY supplement 02/04/21 History mcg (4,000 unit) capsule levothyroxine 100 mcg tablet 100 mcg PO DAILY thyroid 01/12/21 02/04/21 History trazodone 50 mg tablet 50 mg PO QHS PRN depression 02/04/21 History Arthrozene 1 cap PO/SL DAILY 01/28/21 1 History acetaminophen 500 mg tablet 1,000 mg (2 x 500 mg) PO TID #100 02/06/21 Unknown Rx tabs paroxetine HCl 10 mg tablet (Paxil) 10 mg PO DAILY 08/18/24 Unknown History ropinirole 1 mg tablet 1 mg PO BID 08/18/24 Unknown Histo ry rosuvastatin 20 mg tablet 20 mg PO DAILY 08/18/24 Unknown Hi story Allergy/AdvReac Type Severity Reaction Status Date / Time aspirin Allergy Unknown Verified 08/18/24 04:04 ceftazidime pentahydrate Allergy Hives Verified 08/18/24 04:04 (From Fortaz) clindamycin Allergy Rash Verified 08/18/24 04:04 Penicillins Allergy Hives Verified 08/18/24 04:04 povidone-iodine (From Allergy Itching Verified 08/18/24 04:04 Betadine) soap (From Betadine) Allergy Itching Verified 08/18/24 04:04 erythromycin base AdvReac Diarrhea Verified 08/18/24 04:04 (Erythromycin Base) Surgical History History of hysterectomy History of right hip replacement History of tubal ligation History of vascular surgery Status post right knee replacement Social History Smoking Status: Never smoker ROS ROS ED Constitutional Constitutional ED: Denies chills or fever(s) Eyes Eyes: Denies change in vision ENT ENT ED: Reports rhinorrhea and sore throat Cardiovascular Cardiovascular: Denies chest pain Respiratory/Chest Respiratory/Chest: Reports cough and dyspnea Gastrointestinal Gastrointestinal: Denies abdominal pain, diarrhea, nausea or vomiting Genitourinary Genitourinary ED: Denies dysuria Musculoskeletal Musculoskeletal: Denies myalgias Integumentary Denies rash Neurologic Neurologic: Denies headache(s) Hematologic/Lymphatic Hematologic/Lymphatic: Denies easy bleeding or easy bruising Allergic/Immunologic Allergic/Immunologic ED: Denies mouth swelling or tongue swelling EXAM Physical Exam Const Vital Signs: 08/18/24 04:05 08/18/24 04:05 08/18/24 04:07 Temperature 97.5 F L 97.5 F L Temperature Source Oral Oral Pulse Rate 74 68 Respiratory Rate 20 H 20 H Respiratory Effort Short of Breath Respiratory Depth Shallow Respiratory Pattern Tachypnea Blood Pressure 124/56 H 124/56 H Blood Pressure Mean 78 78 Pulse Ox 97 98 Oxygen Delivery Method Room Air Room Air Room Air Oxygen Flow Rate (L/min) 08/18/24 05:27 08/18/24 05:32 08/18/24 06:00 Temperature 97.8 F 98.0 F Temperature Source Oral Oral P (more content not included)... Normal [facility] H AND P Exam - Hospitaliston 08-18-2024 H&P Exam - Hospitalist [facility] Medical Records Department [address] [place] [address] H P Exam - Hospitalist 08/18/24 1701 MR#: [id number] Acct: [id number] Name: TENNILLE ORTIZ Rep #: [id number] : 1965 59 From: Chele Quesada MD PCP: Dr. vEan De MD Status:ADM IN Location: [place] [id number] HPI - General General Date of Admission: 08/18/24 HPI Narrative TENNILLE ORTIZ, is a 59 F who presents to the hospital with increasing shortness of breath over the last 3 to 5 days. She started having increasing work of breathing and a cough. She presented today because of increased shortness of breath and was found to have influenza A. Chest x-ray also demonstrates right lower lobe consolidation. Her care is complicated by the fact that she has scleroderma and restrictive lung disease. Denies any fevers or chills currently and had a family member who was recently sick with influenza. She does not wear oxygen at home at baseline. [facility] Medical History Wears glasses Broken teeth Depression Anxiety Hypoglycemia History of steroid therapy Arthritis High cholesterol Restless legs Neck pain Scleroderma Polymyositis Difficulty swallowing Restrictive lung disease Non-smoker Asthma History of echocardiogram History of stress test History of CHF (congestive heart failure) Home Medications ???Medication ???Instructions ???Recorded ???Last Taken ???Type albuterol sulfate 2.5 mg/3 mL 2.5 mg inhalation Q6HWA.RT asthma 09/23/13 02/04/21 History (0.083 %) solution for nebulization albuterol sulfate 90 mcg/actuation 1 - 2 puff inhalation Q6H PRN [place] N 09/23/13 02/04/21 History aerosol inhaler (Ventolin HFA) Shortness Of Breath arykvuwa-oyd-iaauc acid 0.4 1 ea PO DAILY 09/23/13 02/04/21 Hi story mg-lycopene 300 mcg-lutein 250 mcg tablet (Centrum Silver) prednisone 5 mg tablet 4 mg PO DAILY 09/23/13 02/04/21 Hi story cholecalciferol (vitamin D3) 100 100 mcg PO QODAY supplement 02/04/21 History mcg (4,000 unit) capsule levothyroxine 100 mcg tablet 100 mcg PO DAILY thyroid 01/12/21 02/04/21 History trazodone 50 mg tablet 50 mg PO QHS PRN depression 02/04/21 History Arthrozene 1 cap PO/SL DAILY 01/28/21 1 History acetaminophen 500 mg tablet 1,000 mg (2 x 500 mg) PO TID #100 02/06/21 Unknown Rx tabs paroxetine HCl 10 mg tablet (Paxil) 10 mg PO DAILY 08/18/24 Unknown History ropinirole 1 mg tablet 1 mg PO BID 08/18/24 Unknown Histo ry rosuvastatin 20 mg tablet 20 mg PO DAILY 08/18/24 Unknown Hi story Allergy/AdvReac Type Severity Reaction Status Date / Time aspirin Allergy Unknown Verified 08/18/24 04:04 ceftazidime pentahydrate Allergy Hives Verified 08/18/24 04:04 (From Fortaz) clindamycin Allergy Rash Verified 08/18/24 04:04 Penicillins Allergy Hives Verified 08/18/24 04:04 povidone-iodine (From Allergy Itching Verified 08/18/24 04:04 Betadine) soap (From Betadine) Allergy Itching Verified 08/18/24 04:04 erythromycin base AdvReac Diarrhea Verified 08/18/24 04:04 (Erythromycin Base) Family History (Updated 08/18/24 @ 17:[address] Chele Quesada MD) Other Heart disease Surgical History History of hysterectomy History of right hip replacement History of tubal ligation History of vascular surgery Status post right knee replacement Social History Smoking Status: Never smoker ROS Constitutional Constitutional: Reports chills and fatigue; Denies fever(s) or malaise Eyes Eyes: Denies blurry vision ENT HEENT: Denies headache(s) or nasal discharge Cardiovascular Cardiovascular: Denies chest pain, dyspnea on exertion or syncope Respiratory/Chest Respiratory/Chest: Reports cough, shortness of breath at rest and shortness of breath with exertion Gastrointestinal Gastrointestinal: Denies constipation, diarrhea, nausea or vomiting Genitourinary Genitourinary: Denies dysuria Neurologic Neurologic: Denies focal weakness, numbness or tremor(s) Psychiatric Psychiatric: Denies anxiety or depression Vital Signs Vital Signs Vital Signs: 08/18/24 04:05 08/18/24 04:05 08/18/24 04:07 Temperature 97.5 F L 97.5 F L Temperature Source Oral Oral Pulse Rate 74 68 Pulse Strength Respiratory Rate 20 H 20 H Respiratory Effort Short of Breath Respiratory Depth Shallow Respiratory Pattern Tachypnea Blood Pressure 124/56 H 124/56 H Blood Pressure Mean 78 78 Blood Pressure Source Blood Pressure Position Blood Pressure Location Pulse Ox 97 98 Oxygen Delivery Method Room Air Room Air Room Air Oxygen Flow Rate (L/min) 08/18/24 (more content not included)... Normal [facility] M100.678on 08-18-2024 M100.678 Normal Reference Ran ge = Negative FLUABV+SARS-CoV-2+RSV Pnl Resp LUPE+probe GeneXpert Instrument, PCR method FLUABV+SARS-CoV-2+RSV Pnl Resp LUPE+probe CRITICAL VALUE CALLED TO [facility] 08/18/24 0631 Alan Rodriguez. RESULTS READ BACK BY SAME. FLUABV+SARS-CoV-2+RSV Pnl Resp LUPE+probe Copy of report sent to Infection Control Printer [id number] 08/18/24 0631 JOSE CARLOS. SARS-CoV-2 (COVID 19) Negative INFLUENZA A A Positive A INFLUENZA B Negative RSV PCR Negative INFLUENZAE A Normal [facility] Comment on above: Performed By: #### M 100.678 #### [facility] [address] [place], [place], [address] Magnesiumon 08-18-2024 Magnesium [Mass/Vol] 2.1 mg/dL Normal 1.6-2.6 [facility] Comment on above: Result Comment: Slig ht Hemolysis, Result may be falsely increased. Performed By: #### L 500.2500, L501.5200, L100.0100 ####[facility] [address] [place], [address] CNNURSEon 08-13-[address] [facility] CNNURSEon 07-17-[address] [facility] XR SHLDR >/=3V AP/DANNI AP/OTH R RTon 07-17-2024 XR SHLDR >/=3V AP/DANNI AP/OTHR RT * * *Final Report* * * DATE OF EXAM: Jul 17 2024 10:29AM HMX 5253 - XR SHLDR >/=3V AP/DANNI AP/OTHR RT / PROCEDURE REASON: multiple diagnoses * * * * Physician Interpretation * * * * RESULT: EXAMINATION / TECHNIQUE: XR SHLDR >/=3V AP/DANNI AP/OTHR RT HISTORY: Glenohumeral arthritis, right Pre-op exam . COMPARISON: 11/29/2023 RESULT: Generalized osteopenia. Interval reverse right shoulder arthroplasty with satisfactory alignment. No hardware migration or significant perihardware lucency. IMPRESSION: Interval reverse right shoulder arthroplasty with satisfactory alignment. Transcribed Using Voice Recognition Transcribe Date/Time: Jul 19 2024 12:08P Dictated by: MARLYN PHILLIPS MD This examination was interpreted and the report reviewed and electronically signed by: MARLYN PHILLIPS MD on Jul 19 2024 12:09PM EST [id number] Normal [facility] CNOVon 07-11-[address] [facility] CASE MANAGEMon 07-07-[address] [facility] CBC panel Auto (Bld)on 07-07 Erythrocyte distribution width (RBC) [Ratio] 14.4 % Normal 11.5-15.0 [facility] Comment on above: Order Comment: Speci men Type: BLOOD SPECIMENOrdering Facility: [facility] Address: [address] [place] [address] Performed By: #### 5 8410-2 ####[facility] LABCLIA [id number] [facility] [id number], [place] [address] [place] Hematocrit (Bld) [Volume fraction] 32.3 % Low 36.0-46.0 [facility] Comment on above: Order Comment: Speci men Type: BLOOD SPECIMENOrdering Facility: [facility] Address: [address] [place] [address] Performed By: #### 5 8410-2 ####[facility] LABIA [id number] [place] [address] [place] [place] Hemoglobin (Bld) [Mass/Vol] 9.6 g/dL Low 11.5-15.5 [facility] Comment on above: Order Comment: Speci men Type: BLOOD SPECIMENOrdering Facility: [facility] Address: [address] [place] [address] Performed By: #### 5 8410-2 ####[facility] LABIA [id number] [place] [address] [place] MCH (RBC) [Entitic mass] 28.2 pg Normal 26.0-34.0 [facility] Comment on above: Order Comment: Speci men Type: BLOOD SPECIMENOrdering Facility: [facility] Address: [address] [place] [address] Performed By: #### 5 8410-2 ####[facility] LABIA [id number] [place] [address] [place] MCHC (RBC) [Mass/Vol] 29.7 g/dL Low 30.5-36.0 [facility] Comment on above: Order Comment: Speci men Type: BLOOD SPECIMENOrdering Facility: [facility] Address: [address] [place] [address] Performed By: #### 5 8410-2 ####[facility] LABIA [id number] [place] [address] [place] MCV (RBC) [Entitic vol] 95.0 fL Normal 80.0-100.0 [facility] Comment on above: Order Comment: Speci men Type: BLOOD SPECIMENOrdering Facility: [facility] Address: [address] [place] [address] Performed By: #### 5 8410-2 ####[facility] LABCLIA [id number] [place] [address] [place] Nucleated RBC (Bld) [#/Vol] 10*3/uL Normal <0.01 [facility] Comment on above: Order Comment: Speci men Type: BLOOD SPECIMENOrdering Facility: [facility] Address: [address] [place] [address] Performed By: #### 5 8410-2 ####[facility] LABCLIA [id number] [place] [address] [place] Platelet mean volume (Bld) [Entitic vol] 10.7 fL Normal 9.0-12.7 [facility] Comment on above: Order Comment: Speci men Type: BLOOD SPECIMENOrdering Facility: [facility] Address: [address] [place] [address] Performed By: #### 5 8410-2 ####[facility] LABCLIA [id number] [place] [address] [place] Platelets (Bld) [#/Vol] 218 10*3/uL Normal 150-400 [facility] Comment on above: Order Comment: Speci men Type: BLOOD SPECIMENOrdering Facility: [facility] Address: [address] [place] [address] Performed By: #### 5 8410-2 ####[facility] LABCLIA [id number] [place] [address] [place] RBC (Bld) [#/Vol] 3.40 10*6/uL Low 3.90-5.20 [facility] Comment on above: Order Comment: Speci men Type: BLOOD SPECIMENOrdering Facility: [facility] Address: [address] [place] [address] Performed By: #### 5 8410-2 ####[facility] LABCLIA [id number] [address] [address] [place] WBC (Bld) [#/Vol] 4.30 10*3/uL Normal 3.70-11.00 [facility] Comment on above: Order Comment: Speci men Type: BLOOD SPECIMENOrdering Facility: [facility] Address: [address] [place] [address] Performed By: #### 5 8410-2 ####[facility] LABIA [id number] [place] [address] [place] CNDSon 07-07-[address] [facility] CONSULT PROGon 07-07-[address] [facility] Comprehensive metabolic 2000 panelon 07-07-2024 Albumin [Mass/Vol] 3.3 g/dL Low 3.9-4.9 [facility] Comment on above: Order Comment: Speci men Type: BLOOD SPECIMENOrdering Facility: [facility] Address: [address] [place] [address] Performed By: #### 2 4323-8 ####[facility] LABIA [id number] [place] [address] [place] ALP [Catalytic activity/Vol] 98 U/L Normal 34-123 [facility] Comment on above: Order Comment: Speci men Type: BLOOD SPECIMENOrdering Facility: [facility] Address: [address] [place], [place] [address] Performed By: #### 2 4323-8 ####[facility] LABIA [id number] [place] [id number] [place] ALT [Catalytic activity/Vol] 82 U/L High 7-38 [facility] Comment on above: Order Comment: Speci men Type: BLOOD SPECIMENOrdering Facility: [facility] Address: [address] [place], [place] [address] Performed By: #### 2 4323-8 ####[facility] LABCLIA [id number] [place] [address] [place] Anion gap [Moles/Vol] 9 mmol/L Normal 8-15 [facility] Comment on above: Order Comment: Speci men Type: BLOOD SPECIMENOrdering Facility: [facility] Address: [address] [place] [address] Performed By: #### 2 4323-8 ####[facility] LABCLIA [id number] [place] [address] [place] AST [Catalytic activity/Vol] 18 U/L Normal 13-35 [facility] Comment on above: Order Comment: Speci men Type: BLOOD SPECIMENOrdering Facility: [facility] Address: [address] [place] [address] Result Comment: Resu lts may be falsely increased due to interference from hemolysis. Suggest reorder as clinically indicated. Performed By: #### 2 4323-8 ####[facility] LABIA [id number] [place] [address] [place] Bilirubin [Mass/Vol] 0.4 mg/dL Normal 0.2-1.3 [facility] Comment on above: Order Comment: Speci men Type: BLOOD SPECIMENOrdering Facility: [facility] Address: [address] [place] [address] Performed By: #### 2 4323-8 ####[facility] LABIA [id number] [place] [address] [place] Calcium [Mass/Vol] 8.9 mg/dL Normal 8.5-10.2 [facility] Comment on above: Order Comment: Speci men Type: BLOOD SPECIMENOrdering Facility: [facility] Address: [address] [place] [address] Performed By: #### 2 4323-8 ####[facility] LABCLIA [id number] [place] [address] [place] Chloride [Moles/Vol] 92 mmol/L Low 98-107 [facility] Comment on above: Order Comment: Speci men Type: BLOOD SPECIMENOrdering Facility: [facility] Address: [address] [place] [address] Performed By: #### 2 4323-8 ####[facility] LABCLIA [id number] [place] [address] [place] CO2 [Moles/Vol] 36 mmol/L High 22-30 [facility] Comment on above: Order Comment: Speci men Type: BLOOD SPECIMENOrdering Facility: [facility] Address: [address] [place] [address] Performed By: #### 2 4323-8 ####[facility] LABCLIA [id number] [address] [place] Creatinine [Mass/Vol] 0.18 mg/dL Low 0.58-0.96 [facility] Comment on above: Order Comment: Speci men Type: BLOOD SPECIMENOrdering Facility: [facility] Address: [address] [place] [address] Performed By: #### 2 4323-8 ####[facility] LABCLIA [id number] [address] Creatinine and Glomerular filtration rate.predicted panel (S/P/Bld) 138 mL/min/1.73m??? Normal >=60 [facility] Comment on above: Order Comment: Speci men Type: BLOOD SPECIMENOrdering Facility: [facility] Address: [address] [place] [address] Result Comment: Yon mated Glomerular Filtration Rate (eGFR) is calculated using the 2020 CKD-EPI creatinine equation. This equation utilizes serum creatinine, sex, and age as parameters. The creatinine assay has traceable calibration to isotope dilution-mass spectrometry. Refer to KDIGO guidelines for clinical interpretation. In patients with unstable renal function, e.g. those with acute kidney injury, the eGFR may not accurately reflect actual GFR. Performed By: #### 2 4323-8 ####[facility] LABCLIA [id number] [place] [address] [place] Glucose [Mass/Vol] 95 mg/dL Normal 74-99 [facility] Comment on above: Order Comment: Speci men Type: BLOOD SPECIMENOrdering Facility: [facility] Address: [address] [place] [address] Result Comment: The [place] [employer] (ADA) provides guidance for cutoff values for fasting glucose and random glucose. The ADA defines fasting as no caloric intake for at least 8 hours. Fasting plasma glucose results between 100 to 125 mg/dL indicate increased risk for diabetes (prediabetes).Fasting plasma glucose results greater than or equal to 126 mg/dL meet the criteria for diagnosis of diabetes. In the absence of unequivocal hyperglycemia, results should be confirmed by repeat testing. In a patient with classic symptoms of hyperglycemia or hyperglycemic crisis, random plasma glucose results greater than or equal to 200 mg/dL meet the criteria for diagnosis of diabetes.Reference: Standards of Medical Care in Diabetes 2016, [place] [employer]. Diabetes Care. 2016.39(Suppl 1). Performed By: #### 2 4323-8 ####[facility] LABCLIA [id number] [place] [address] [place] Potassium [Moles/Vol] 4.4 mmol/L Normal 3.7-5.1 [facility] Comment on above: Order Comment: Speci men Type: BLOOD SPECIMENOrdering Facility: [facility] Address: [address] [place] [address] Performed By: #### 2 4323-8 ####[facility] LABCLIA [id number] [place] [address] [place] Protein [Mass/Vol] 6.1 g/dL Low 6.3-8.0 [facility] Comment on above: Order Comment: Speci men Type: BLOOD SPECIMENOrdering Facility: [facility] Address: [address] [place] [address] Performed By: #### 2 4323-8 ####[facility] LABCLIA [id number] [place] [address] [place] Sodium [Moles/Vol] 137 mmol/L Normal 136-144 [facility] Comment on above: Order Comment: Speci men Type: BLOOD SPECIMENOrdering Facility: [facility] Address: [address] [place] [address] Performed By: #### 2 4323-8 ####[facility] LABCLIA [id number] [place] [address] [place] Urea nitrogen [Mass/Vol] 8 mg/dL Normal 7-21 [facility] Comment on above: Order Comment: Speci men Type: BLOOD SPECIMENOrdering Facility: [facility] Address: [address] [place] [address] Performed By: #### 2 4323-8 ####[facility] LABCLIA [id number] [place] [address] [place] NURSING PROGon 07-07-[address] [facility] THERAPY NTon 07-07-[address] [facility] THERAPY NT Normal [facility] CASE MANAGEMon 07-06-[address] [facility] CBC panel Auto (Bld)on 07-06 Erythrocyte distribution width (RBC) [Ratio] 14.5 % Normal 11.5-15.0 [facility] Comment on above: Order Comment: Speci men Type: BLOOD SPECIMENOrdering Facility: [facility] Address: [address] [place] [address] Performed By: #### 5 8410-2 ####[facility] LABCLIA [id number] [place] [address] [place] Hematocrit (Bld) [Volume fraction] 32.3 % Low 36.0-46.0 [facility] Comment on above: Order Comment: Speci men Type: BLOOD SPECIMENOrdering Facility: [facility] Address: [address] [place] [address] Performed By: #### 5 8410-2 ####[facility] LABIA [id number] [place] [address] [place] Hemoglobin (Bld) [Mass/Vol] 9.5 g/dL Low 11.5-15.5 [facility] Comment on above: Order Comment: Speci men Type: BLOOD SPECIMENOrdering Facility: [facility] Address: [address] [place] [address] Performed By: #### 5 8410-2 ####[facility] LABIA [id number] [place] [address] [place] MCH (RBC) [Entitic mass] 28.1 pg Normal 26.0-34.0 [facility] Comment on above: Order Comment: Speci men Type: BLOOD SPECIMENOrdering Facility: [facility] Address: [address] [place] [address] Performed By: #### 5 8410-2 ####[facility] [id number] [place] [address] [place] MCHC (RBC) [Mass/Vol] 29.4 g/dL Low 30.5-36.0 [facility] Comment on above: Order Comment: Speci men Type: BLOOD SPECIMENOrdering Facility: [facility] Address: [address] [place] [address] Performed By: #### 5 8410-2 ####[facility] [id number] [place] [address] [place] MCV (RBC) [Entitic vol] 95.6 fL Normal 80.0-100.0 [facility] Comment on above: Order Comment: Speci men Type: BLOOD SPECIMENOrdering Facility: [facility] Address: [address] [place] [address] Performed By: #### 5 8410-2 ####[facility] [id number] [place] [address] [place] Nucleated RBC (Bld) [#/Vol] 10*3/uL Normal <0.01 [facility] Comment on above: Order Comment: Speci men Type: BLOOD SPECIMENOrdering Facility: [facility] Address: [address] [place] [address] Performed By: #### 5 8410-2 ####[facility] LABCLIA [id number] [place] [address] [place] Platelet mean volume (Bld) [Entitic vol] 10.9 fL Normal 9.0-12.7 [facility] Comment on above: Order Comment: Speci men Type: BLOOD SPECIMENOrdering Facility: [facility] Address: [address] [place] [address] Performed By: #### 5 8410-2 ####[facility] LABCLIA [id number] [place] [address] [place] Platelets (Bld) [#/Vol] 183 10*3/uL Normal 150-400 [facility] Comment on above: Order Comment: Speci men Type: BLOOD SPECIMENOrdering Facility: [facility] Address: [address] [place] [address] Performed By: #### 5 8410-2 ####[facility] LABIA [id number] [place] [address] [place] RBC (Bld) [#/Vol] 3.38 10*6/uL Low 3.90-5.20 [facility] Comment on above: Order Comment: Speci men Type: BLOOD SPECIMENOrdering Facility: [facility] Address: [address] [place] [address] Performed By: #### 5 8410-2 ####[facility] LABCLIA [id number] [place] [address] [place] WBC (Bld) [#/Vol] 5.64 10*3/uL Normal 3.70-11.00 [facility] Comment on above: Order Comment: Speci men Type: BLOOD SPECIMENOrdering Facility: [facility] Address: [address] [place] [address] Performed By: #### 5 8410-2 ####[facility] LABCLIA [id number] [place] [address] [place] CONSULT PROGon 07-06-[address] [facility] Comprehensive metabolic 2000 panelon 07-06-2024 Albumin [Mass/Vol] 3.1 g/dL Low 3.9-4.9 [facility] Comment on above: Order Comment: Speci men Type: BLOOD SPECIMENOrdering Facility: [facility] Address: [address] [place] [address] Performed By: #### 2 4323-8 ####[facility] LABCLIA [id number] [place] [address] [place] ALP [Catalytic activity/Vol] 107 U/L Normal 34-123 [facility] Comment on above: Order Comment: Speci men Type: BLOOD SPECIMENOrdering Facility: [facility] Address: [address] [place] [address] Performed By: #### 2 4323-8 ####[facility] LABIA [id number] [place] [address] [place] ALT [Catalytic activity/Vol] 114 U/L High 7-38 [facility] Comment on above: Order Comment: Speci men Type: BLOOD SPECIMENOrdering Facility: [facility] Address: [address] [place] [address] Performed By: #### 2 4323-8 ####[facility] LABCLIA [id number] [place] [address] [place] Anion gap [Moles/Vol] 11 mmol/L Normal 8-15 [facility] Comment on above: Order Comment: Speci men Type: BLOOD SPECIMENOrdering Facility: [facility] Address: [address] [place], [place] [address] Performed By: #### 2 4323-8 ####[facility] LABCLIA [id number] [place] [id number] [place] AST [Catalytic activity/Vol] 34 U/L Normal 13-35 [facility] Comment on above: Order Comment: Speci men Type: BLOOD SPECIMENOrdering Facility: [facility] Address: [address] [place] [address] Result Comment: Resu lts may be falsely increased due to interference from hemolysis. Suggest reorder as clinically indicated. Performed By: #### 2 4323-8 ####[facility]IA [id number] [place] [address] [place] Bilirubin [Mass/Vol] 0.4 mg/dL Normal 0.2-1.3 [facility] Comment on above: Order Comment: Speci men Type: BLOOD SPECIMENOrdering Facility: [facility] Address: [address] [place] [address] Performed By: #### 2 4323-8 ####[facility]IA [id number] [place] [address] [place] Calcium [Mass/Vol] 8.7 mg/dL Normal 8.5-10.2 [facility] Comment on above: Order Comment: Speci men Type: BLOOD SPECIMENOrdering Facility: [facility] Address: [address] [place] [address] Performed By: #### 2 4323-8 ####[facility] LABCLIA [id number] [place] [address] [place] Chloride [Moles/Vol] 96 mmol/L Low 98-107 [facility] Comment on above: Order Comment: Speci men Type: BLOOD SPECIMENOrdering Facility: [facility] Address: [address] [place] [address] Performed By: #### 2 4323-8 ####[facility] LABCLIA [id number] [place] [address] [place] CO2 [Moles/Vol] 34 mmol/L High 22-30 [facility] Comment on above: Order Comment: Speci men Type: BLOOD SPECIMENOrdering Facility: [facility] Address: [address] [place] [address] Performed By: #### 2 4323-8 ####[facility] LABCLIA [id number] [place] [address] [place] Creatinine [Mass/Vol] 0.23 mg/dL Low 0.58-0.96 [facility] Comment on above: Order Comment: Speci men Type: BLOOD SPECIMENOrdering Facility: [facility] Address: [address] [place] [address] Performed By: #### 2 4323-8 ####[facility] LABCLIA [id number] [place] [address] [place] Creatinine and Glomerular filtration rate.predicted panel (S/P/Bld) 130 mL/min/1.73m??? Normal >=60 [facility] Comment on above: Order Comment: Speci men Type: BLOOD SPECIMENOrdering Facility: [facility] Address: [address] [place] [address] Result Comment: Yon mated Glomerular Filtration Rate (eGFR) is calculated using the 2020 CKD-EPI creatinine equation. This equation utilizes serum creatinine, sex, and age as parameters. The creatinine assay has traceable calibration to isotope dilution-mass spectrometry. Refer to KDIGO guidelines for clinical interpretation. In patients with unstable renal function, e.g. those with acute kidney injury, the eGFR may not accurately reflect actual GFR. Performed By: #### 2 4323-8 ####[facility] LABCLIA [id number] [place] [address] [place] Glucose [Mass/Vol] 93 mg/dL Normal 74-99 [facility] Comment on above: Order Comment: Speci men Type: BLOOD SPECIMENOrdering Facility: [facility] Address: [address] [place] [address] Result Comment: The [place] Diabetes [employer] (ADA) provides guidance for cutoff values for fasting glucose and random glucose. The ADA defines fasting as no caloric intake for at least 8 hours. Fasting plasma glucose results between 100 to 125 mg/dL indicate increased risk for diabetes (prediabetes).Fasting plasma glucose results greater than or equal to 126 mg/dL meet the criteria for diagnosis of diabetes. In the absence of unequivocal hyperglycemia, results should be confirmed by repeat testing. In a patient with classic symptoms of hyperglycemia or hyperglycemic crisis, random plasma glucose results greater than or equal to 200 mg/dL meet the criteria for diagnosis of diabetes.Reference: Standards of Medical Care in Diabetes 2016, [place] [employer]. Diabetes Care. 2016.39(Suppl 1). Performed By: #### 2 4323-8 ####[facility] LABCLIA [id number] [place] [address] [place] Potassium [Moles/Vol] 4.4 mmol/L Normal 3.7-5.1 [facility] Comment on above: Order Comment: Speci men Type: BLOOD SPECIMENOrdering Facility: [facility] Address: [address] [place] [address] Performed By: #### 2 4323-8 ####[facility] LABCLIA [id number] [place] [address] [place] Protein [Mass/Vol] 6.1 g/dL Low 6.3-8.0 [facility] Comment on above: Order Comment: Speci men Type: BLOOD SPECIMENOrdering Facility: [facility] Address: [address] [place] [address] Performed By: #### 2 4323-8 ####[facility] LABCLIA [id number] [place] [address] [place] Sodium [Moles/Vol] 141 mmol/L Normal 136-144 [facility] Comment on above: Order Comment: Speci men Type: BLOOD SPECIMENOrdering Facility: [facility] Address: [address] [place] [address] Performed By: #### 2 4323-8 ####[facility] LABCLIA [id number] [place] [address] [place] Urea nitrogen [Mass/Vol] 7 mg/dL Normal 7-21 [facility] Comment on above: Order Comment: Speci men Type: BLOOD SPECIMENOrdering Facility: [facility] Address: [address] [place] [address] Performed By: #### 2 4323-8 ####[facility] [id number] [place] [address] [place] NURSING PROGon 07-06-[address] [facility] THERAPY NTon 07-06-[address] [facility] CASE MGT INIT ASSESon 2024 CASE MGT INIT ASSES Normal [facility] CBC panel Auto (Bld)on 07-05 Erythrocyte distribution width (RBC) [Ratio] 14.9 % Normal 11.5-15.0 [facility] Comment on above: Order Comment: Speci men Type: BLOOD SPECIMENOrdering Facility: [facility] Address: [address] [place] [address] Performed By: #### 5 8410-2 ####[facility] [id number] [place] [address] [place] Hematocrit (Bld) [Volume fraction] 30.8 % Low 36.0-46.0 [facility] Comment on above: Order Comment: Speci men Type: BLOOD SPECIMENOrdering Facility: [facility] Address: [address] [place] [address] Performed By: #### 5 8410-2 ####[facility] [id number] [place] [address] [place] Hemoglobin (Bld) [Mass/Vol] 8.9 g/dL Low 11.5-15.5 [facility] Comment on above: Order Comment: Speci men Type: BLOOD SPECIMENOrdering Facility: [facility] Address: [address] [place] [address] Performed By: #### 5 8410-2 ####[facility] [id number] [place] [address] [place] MCH (RBC) [Entitic mass] 28.4 pg Normal 26.0-34.0 [facility] Comment on above: Order Comment: Speci men Type: BLOOD SPECIMENOrdering Facility: [facility] Address: [address] [place] [address] Performed By: #### 5 8410-2 ####[facility] [id number] [place] [address] [place] MCHC (RBC) [Mass/Vol] 28.9 g/dL Low 30.5-36.0 [facility] Comment on above: Order Comment: Speci men Type: BLOOD SPECIMENOrdering Facility: [facility] [facility] Address: [address] [place] [address] Performed By: #### 5 8410-2 ####[facility] LABIA [id number] [place] [address] [place] MCV (RBC) [Entitic vol] 98.4 fL Normal 80.0-100.0 [facility] Comment on above: Order Comment: Speci men Type: BLOOD SPECIMENOrdering Facility: [facility] Address: [address] [place] [address] Performed By: #### 5 8410-2 ####[facility]IA [id number] [place] [address] [place] Nucleated RBC (Bld) [#/Vol] 10*3/uL Normal <0.01 [facility] Comment on above: Order Comment: Speci men Type: BLOOD SPECIMENOrdering Facility: [facility] Address: [address] [place] [address] Performed By: #### 5 8410-2 ####[facility]IA [id number] [place] [address] [place] Platelet mean volume (Bld) [Entitic vol] 11.4 fL Normal 9.0-12.7 [facility] Comment on above: Order Comment: Speci men Type: BLOOD SPECIMENOrdering Facility: [facility] Address: [address] [place] [address] Performed By: #### 5 8410-2 ####[facility] LABCLIA [id number] [place] [address] [place] Platelets (Bld) [#/Vol] 135 10*3/uL Low 150-400 [facility] Comment on above: Order Comment: Speci men Type: BLOOD SPECIMENOrdering Facility: [facility] Address: [address] [place] [address] Result Comment: Resu lts checked and verified.No clot detected. Performed By: #### 5 8410-2 ####[facility]IA [id number] [place] [address] [place] RBC (Bld) [#/Vol] 3.13 10*6/uL Low 3.90-5.20 [facility] Comment on above: Order Comment: Speci men Type: BLOOD SPECIMENOrdering Facility: [facility] Address: [address] [place] [address] Performed By: #### 5 8410-2 ####[facility]IA [id number] [place] [address] [place] WBC (Bld) [#/Vol] 5.58 10*3/uL Normal 3.70-11.00 [facility] Comment on above: Order Comment: Speci men Type: BLOOD SPECIMENOrdering Facility: [facility] Address: [address] [place] [address] Performed By: #### 5 8410-2 ####[facility]IA [id number] [place] [address] [place] CONSULTon 01-02-2025 CONSULT Normal [facility] metabolic 2000 panelon 07-05-2024 Albumin [Mass/Vol] 3.0 g/dL Low 3.9-4.9 [facility] Comment on above: Order Comment: Speci men Type: BLOOD SPECIMENOrdering Facility: [facility] Address: [address] [place] [address] Performed By: #### 5 0190-8, 6-4, 05812-2 ####[facility] LABCLIA [id number] [place] [address] [place] ALP [Catalytic activity/Vol] 93 U/L Normal 34-123 [facility] Comment on above: Order Comment: Speci men Type: BLOOD SPECIMENOrdering Facility: [facility] Address: [address] [place] [address] Performed By: #### 5 0190-8, 2275-4, 36811-6 ####[facility] LABCLIA [id number] [place] [address] [place] ALT [Catalytic activity/Vol] 141 U/L High 7-38 [facility] Comment on above: Order Comment: Speci men Type: BLOOD SPECIMENOrdering Facility: [facility] Address: [address] [place] [address] Performed By: #### 5 0190-8, 2275-4, 50975-1 ####[facility] LABCLIA [id number] [place] [address] [place] Anion gap [Moles/Vol] 9 mmol/L Normal 8-15 [facility] Comment on above: Order Comment: Speci men Type: BLOOD SPECIMENOrdering Facility: [facility] Address: [address] [place] [address] Performed By: #### 5 0190-8, 2275-4, 08493-2 ####[facility] LABCLIA [id number] [place] [address] [place] AST [Catalytic activity/Vol] 60 U/L High 13-35 [facility] Comment on above: Order Comment: Speci men Type: BLOOD SPECIMENOrdering Facility: [facility] Address: [address] [place] [address] Performed By: #### 5 0190-8, 2275-10, ####[facility] LABCLIA [id number] [place] [address] [place] Bilirubin [Mass/Vol] 0.4 mg/dL Normal 0.2-1.3 [facility] Comment on above: Order Comment: Speci men Type: BLOOD SPECIMENOrdering Facility: [facility] Address: [address] [place] [address] Performed By: #### 5 0190-8, 2275-10, ####[facility] LABCLIA [id number] [place] [address] [place] Calcium [Mass/Vol] 8.4 mg/dL Low 8.5-10.2 [facility] Comment on above: Order Comment: Speci men Type: BLOOD SPECIMENOrdering Facility: [facility] Address: [address] [place] [address] Performed By: #### 5 0190-8, 2275-10, ####[facility] LABCLIA [id number] [place] [address] [place] Chloride [Moles/Vol] 98 mmol/L Normal 98-107 [facility] Comment on above: Order Comment: Speci men Type: BLOOD SPECIMENOrdering Facility: [facility] Address: [address] [place] [address] Performed By: #### 5 0190-8, 2275-10, ####[facility] LABCLIA [id number] [place] [id number] [place] CO2 [Moles/Vol] 30 mmol/L Normal 22-30 [facility] Comment on above: Order Comment: Speci men Type: BLOOD SPECIMENOrdering Facility: [facility] Address: [address] [place] [address] Performed By: #### 5 0190-8, 2275-10, ####[facility] LABCLIA [id number] [place] [address] [place] Creatinine [Mass/Vol] 0.21 mg/dL Low 0.58-0.96 [facility] Comment on above: Order Comment: Speci men Type: BLOOD SPECIMENOrdering Facility: [facility] Address: [address] [place] [address] Performed By: #### 5 0190-8, 2275-10, ####[facility]IA [id number] [place] [address] [place] Creatinine and Glomerular filtration rate.predicted panel (S/P/Bld) 133 mL/min/1.73m??? Normal >=60 [facility] Comment on above: Order Comment: Speci men Type: BLOOD SPECIMENOrdering Facility: [facility] Address: [address] [place] [address] Result Comment: Yon mated Glomerular Filtration Rate (eGFR) is calculated using the 2020 CKD-EPI creatinine equation. This equation utilizes serum creatinine, sex, and age as parameters. The creatinine assay has traceable calibration to isotope dilution-mass spectrometry. Refer to KDIGO guidelines for clinical interpretation. In patients with unstable renal function, e.g. those with acute kidney injury, the eGFR may not accurately reflect actual GFR. Performed By: #### 5 0190-8, 2275-10, ####[facility]IA [id number] [place] [address] [place] Glucose [Mass/Vol] 92 mg/dL Normal 74-99 [facility] Comment on above: Order Comment: Speci men Type: BLOOD SPECIMENOrdering Facility: [facility] Address: [address] [place] [address] Result Comment: The [place] Diabetes [employer] (ADA) provides guidance for cutoff values for fasting glucose and random glucose. The ADA defines fasting as no caloric intake for at least 8 hours. Fasting plasma glucose results between 100 to 125 mg/dL indicate increased risk for diabetes (prediabetes).Fasting plasma glucose results greater than or equal to 126 mg/dL meet the criteria for diagnosis of diabetes. In the absence of unequivocal hyperglycemia, results should be confirmed by repeat testing. In a patient with classic symptoms of hyperglycemia or hyperglycemic crisis, random plasma glucose results greater than or equal to 200 mg/dL meet the criteria for diagnosis of diabetes.Reference: Standards of Medical Care in Diabetes 2016, [place] [employer]. Diabetes Care. 2016.39(Suppl 1). Performed By: #### 5 0190-8, 6-4, 59947-7 ####[facility]IA [id number] [place] [address] [place] Potassium [Moles/Vol] 4.6 mmol/L Normal 3.7-5.1 [facility] Comment on above: Order Comment: Speci men Type: BLOOD SPECIMENOrdering Facility: [facility] Address: [address] [place] [address] Performed By: #### 5 0190-8, 2275-, 20571-1 ####[facility] [id number] [place] [address] [place] Protein [Mass/Vol] 5.4 g/dL Low 6.3-8.0 [facility] Comment on above: Order Comment: Speci men Type: BLOOD SPECIMENOrdering Facility: [facility] Address: [address] [place] [address] Performed By: #### 5 0190-8, 2275-, 28609-6 ####[facility]IA [id number] [place] [address] [place] Sodium [Moles/Vol] 137 mmol/L Normal 136-144 [facility] Comment on above: Order Comment: Speci men Type: BLOOD SPECIMENOrdering Facility: [facility] Address: [address] [place] [id number] Performed By: #### 5 0190-8, 6-4, 16756-4 ####[facility]IA [id number] [place] [address] [place] Urea nitrogen [Mass/Vol] 7 mg/dL Normal 7-21 [facility] Comment on above: Order Comment: Speci men Type: BLOOD SPECIMENOrdering Facility: [facility] Address: [address] [place] [address] Performed By: #### 5 0190-8, 2275-4, 98680-0 ####[facility]IA [id number] [place] [address] [place] Ferritin SerPl-ncon 2024 Ferritin [Mass/Vol] 170.0 ng/mL Normal 14.7-205.1 [facility] Comment on above: Order Comment: Speci men Type: BLOOD SPECIMENOrdering Facility: [facility] Address: [address] [place] [address] Performed By: #### 5 0190-8, 6-4, 02763-0 ####[facility]IA [id number] [place] [address] [place] Iron and Iron binding capaci ty panelon 07-05-2024 Iron [Mass/Vol] 22 ug/dL Low 41-186 [facility] Comment on above: Order Comment: Speci men Type: BLOOD SPECIMENOrdering Facility: [facility] Address: [address] [place] [address] Performed By: #### 5 0190-8, 6-4, 09755-7 ####[facility]IA [id number] [place] [address] [place] Iron binding capacity [Mass/Vol] 189 ug/dL Low 232-386 [facility] Comment on above: Order Comment: Speci men Type: BLOOD SPECIMENOrdering Facility: [facility] Address: [address] [place] [address] Performed By: #### 5 0190-8, 2276-4, 87270-8 ####[facility] LABCLIA [id number] [place] [address] [place] Iron/TIBC [Molar ratio] 11.6 % Low 15.0-57.0 [facility] Comment on above: Order Comment: Speci men Type: BLOOD SPECIMENOrdering Facility: [facility] Address: [address] [place] [address] Performed By: #### 5 0190-8, 2276-4, 05487-4 ####[facility] LABCLIA [id number] [place] [address] [place] Procalcitonin SerPl-mCncon 0 07-05-2024 Procalcitonin [Mass/Vol] ng/mL Normal <0.09 [facility] Comment on above: Order Comment: Speci men Type: BLOOD SPECIMENOrdering Facility: [facility] Address: [address] [place] [address] Result Comment: For a guided interpretation of test results, please visit the Change in Procalcitonin Calculator, [email or web address]. Performed By: #### 3 3959-8 ####[facility] LABCLIA [id number] [place] [address] [place] THERAPY NTon 07-05-[address] [facility] XR CHEST 1V FRONTAL PORTon 0 07-05-2024 XR CHEST 1V FRONTAL PORT Normal [facility] CBC panel Auto (Bld)on 07-04 Erythrocyte distribution width (RBC) [Ratio] 15.4 % High 11.5-15.0 [facility] Comment on above: Order Comment: Speci men Type: BLOOD SPECIMENOrdering Facility: [facility] Address: [address] [place] [address] Performed By: #### 5 8410-2 ####[facility] LABCLIA [id number] [place] [address] [place] Hematocrit (Bld) [Volume fraction] 31.5 % Low 36.0-46.0 [facility] Comment on above: Order Comment: Speci men Type: BLOOD SPECIMENOrdering Facility: [facility] Address: [address] [place] [address] Performed By: #### 5 8410-2 ####[facility]IA [id number] [place] [address] [place] Hemoglobin (Bld) [Mass/Vol] 9.6 g/dL Low 11.5-15.5 [facility] Comment on above: Order Comment: Speci men Type: BLOOD SPECIMENOrdering Facility: [facility] Address: [address] [place] [address] Performed By: #### 5 8410-2 ####[facility]IA [id number] [place] [address] [place] MCH (RBC) [Entitic mass] 29.5 pg Normal 26.0-34.0 [facility] Comment on above: Order Comment: Speci men Type: BLOOD SPECIMENOrdering Facility: [facility] Address: [address] [place] [address] Performed By: #### 5 8410-2 ####[facility]IA [id number] [place] [address] [place] MCHC (RBC) [Mass/Vol] 30.5 g/dL Normal 30.5-36.0 [facility] Comment on above: Order Comment: Speci men Type: BLOOD SPECIMENOrdering Facility: [facility] Address: [address] [place] [address] Performed By: #### 5 8410-2 ####[facility]IA [id number] [place] [address] [place] MCV (RBC) [Entitic vol] 96.9 fL Normal 80.0-100.0 [facility] Comment on above: Order Comment: Speci men Type: BLOOD SPECIMENOrdering Facility: [facility] Address: [address] [place] [address] Performed By: #### 5 8410-2 ####[facility]IA [id number] [place] [address] [place] Nucleated RBC (Bld) [#/Vol] 10*3/uL Normal <0.01 [facility] Comment on above: Order Comment: Speci men Type: BLOOD SPECIMENOrdering Facility: [facility] Address: [address] [place] [address] Performed By: #### 5 8410-2 ####[facility]IA [id number] [place] [address] [place] Platelet mean volume (Bld) [Entitic vol] 11.3 fL Normal 9.0-12.7 [facility] Comment on above: Order Comment: Speci men Type: BLOOD SPECIMENOrdering Facility: [facility] Address: [address] [place] [address] Performed By: #### 5 8410-2 ####[facility] [id number] [place] [address] [place] Platelets (Bld) [#/Vol] 141 10*3/uL Low 150-400 [facility] Comment on above: Order Comment: Speci men Type: BLOOD SPECIMENOrdering Facility: [facility] Address: [address] [place] [address] Result Comment: Resu lts checked and verified.No clot detected. Performed By: #### 5 8410-2 ####[facility] LABIA [id number] [place] [address] [place] RBC (Bld) [#/Vol] 3.25 10*6/uL Low 3.90-5.20 [facility] Comment on above: Order Comment: Speci men Type: BLOOD SPECIMENOrdering Facility: [facility] Address: [address] [place] [address] Performed By: #### 5 8410-2 ####[facility] LABCLIA [id number] [place] [address] [place] WBC (Bld) [#/Vol] 6.60 10*3/uL Normal 3.70-11.00 [facility] Comment on above: Order Comment: Speci men Type: BLOOD SPECIMENOrdering Facility: [facility] Address: [address] [place] [address] Performed By: #### 5 8410-2 ####[facility] LABCLIA [id number] [place] [address] [place] Comprehensive metabolic 2000 panelon 07-04-2024 Albumin [Mass/Vol] 3.5 g/dL Low 3.9-4.9 [facility] Comment on above: Order Comment: Speci men Type: BLOOD SPECIMENOrdering Facility: [facility] Address: [address] [place] [address] Performed By: #### 2 4323-8 ####[facility] LABCLIA [id number] [place] [address] [place] ALP [Catalytic activity/Vol] 85 U/L Normal 34-123 [facility] Comment on above: Order Comment: Speci men Type: BLOOD SPECIMENOrdering Facility: [facility] Address: [address] [place] [address] Performed By: #### 2 4323-8 ####[facility] LABCLIA [id number] [place] [id number] [place] ALT [Catalytic activity/Vol] 217 U/L High 7-38 [facility] Comment on above: Order Comment: Speci men Type: BLOOD SPECIMENOrdering Facility: [facility] Address: [address] [place] [address] Performed By: #### 2 4323-8 ####[facility] LABCLIA [id number] [place] [address] [place] Anion gap [Moles/Vol] 10 mmol/L Normal 8-15 [facility] Comment on above: Order Comment: Speci men Type: BLOOD SPECIMENOrdering Facility: [facility] Address: [address] [place] [address] Performed By: #### 2 4323-8 ####[facility] LABCLIA [id number] [place] [address] [place] AST [Catalytic activity/Vol] 141 U/L High 13-35 [facility] Comment on above: Order Comment: Speci men Type: BLOOD SPECIMENOrdering Facility: [facility] Address: [address] [place] [address] Result Comment: Resu lts may be falsely increased due to interference from hemolysis. Suggest reorder as clinically indicated. Performed By: #### 2 4323-8 ####[facility]IA [id number] [place] [address] [place] Bilirubin [Mass/Vol] 0.5 mg/dL Normal 0.2-1.3 [facility] Comment on above: Order Comment: Speci men Type: BLOOD SPECIMENOrdering Facility: [facility] Address: [address] [place] [address] Performed By: #### 2 4323-8 ####[facility] LABCLIA [id number] [place] [address] [place] Calcium [Mass/Vol] 8.7 mg/dL Normal 8.5-10.2 [facility] Comment on above: Order Comment: Speci men Type: BLOOD SPECIMENOrdering Facility: [facility] Address: [address] [place] [address] Performed By: #### 2 4323-8 ####[facility] LABCLIA [id number] [place] [address] [place] Chloride [Moles/Vol] 100 mmol/L Normal 98-107 [facility] Comment on above: Order Comment: Speci men Type: BLOOD SPECIMENOrdering Facility: [facility] Address: [address] [place] [address] Performed By: #### 2 4323-8 ####[facility]CLIA [id number] [place] [address] [place] CO2 [Moles/Vol] 29 mmol/L Normal 22-30 [facility] Comment on above: Order Comment: Speci men Type: BLOOD SPECIMENOrdering Facility: [facility] Address: [address] [place] [address] Performed By: #### 2 4323-8 ####[facility] LABCLIA [id number] [address] [place] OF [facility] Creatinine [Mass/Vol] 0.24 mg/dL Low 0.58-0.96 [facility] Comment on above: Order Comment: Speci men Type: BLOOD SPECIMENOrdering Facility: [facility] Address: [address] [place] [address] Performed By: #### 2 4323-8 ####[facility] LABCLIA [id number] [address] Creatinine and Glomerular filtration rate.predicted panel (S/P/Bld) 128 mL/min/1.73m??? Normal >=60 [facility] Comment on above: Order Comment: Speci men Type: BLOOD SPECIMENOrdering Facility: [facility] Address: [address] [place] [address] Result Comment: Yon mated Glomerular Filtration Rate (eGFR) is calculated using the 2020 CKD-EPI creatinine equation. This equation utilizes serum creatinine, sex, and age as parameters. The creatinine assay has traceable calibration to isotope dilution-mass spectrometry. Refer to KDIGO guidelines for clinical interpretation. In patients with unstable renal function, e.g. those with acute kidney injury, the eGFR may not accurately reflect actual GFR. Performed By: #### 2 4323-8 ####[facility]CLIA [id number] [place] [address] [place] Glucose [Mass/Vol] 109 mg/dL High 74-99 [facility] Comment on above: Order Comment: Speci men Type: BLOOD SPECIMENOrdering Facility: [facility] Address: [address] [place] [address] Result Comment: The [place] Diabetes Association (ADA) provides guidance for cutoff values for fasting glucose and random glucose. The ADA defines fasting as no caloric intake for at least 8 hours. Fasting plasma glucose results between 100 to 125 mg/dL indicate increased risk for diabetes (prediabetes).Fasting plasma glucose results greater than or equal to 126 mg/dL meet the criteria for diagnosis of diabetes. In the absence of unequivocal hyperglycemia, results should be confirmed by repeat testing. In a patient with classic symptoms of hyperglycemia or hyperglycemic crisis, random plasma glucose results greater than or equal to 200 mg/dL meet the criteria for diagnosis of diabetes.Reference: Standards of Medical Care in Diabetes 2016, [place] [employer]. Diabetes Care. 2016.39(Suppl 1). Performed By: #### 2 4323-8 ####[facility]CLIA [id number] [place] [address] [place] Potassium [Moles/Vol] 4.5 mmol/L Normal 3.7-5.1 [facility] Comment on above: Order Comment: Speci men Type: BLOOD SPECIMENOrdering Facility: [facility] Address: [address] [place] [address] Performed By: #### 2 4323-8 ####[facility]CLIA [id number] [place] [address] [place] Protein [Mass/Vol] 6.1 g/dL Low 6.3-8.0 [facility] Comment on above: Order Comment: Speci men Type: BLOOD SPECIMENOrdering Facility: [facility] Address: [address] [place] [address] Performed By: #### 2 4323-8 ####[facility]CLIA [id number] [place] [address] [place] Sodium [Moles/Vol] 139 mmol/L Normal 136-144 [facility] Comment on above: Order Comment: Speci men Type: BLOOD SPECIMENOrdering Facility: [facility] Address: [address] [place] [address] Performed By: #### 2 4323-8 ####[facility]CLIA [id number] [place] [address] [place] Urea nitrogen [Mass/Vol] 10 mg/dL Normal 7-21 [facility] Comment on above: Order Comment: Speci men Type: BLOOD SPECIMENOrdering Facility: [facility] Address: [address] [place] [address] Performed By: #### 2 4323-8 ####[facility]CLIA [id number] [place] [address] [place] NURSING PROGon 07-04-[address] [facility] THERAPY NTon 07-04-[address] [facility] Basic metabolic 2000 panelon 07-03-2024 Anion gap [Moles/Vol] 6 mmol/L Low 8-15 [facility] Comment on above: Order Comment: Speci men Type: BLOOD SPECIMENOrdering Facility: [facility] Address: [address] [place] [address] Performed By: #### 2 4321-2 ####[facility]CLIA [id number] [place] [id number] [place] Calcium [Mass/Vol] 9.0 mg/dL Normal 8.5-10.2 [facility] Comment on above: Order Comment: Speci men Type: BLOOD SPECIMENOrdering Facility: [facility] Address: [address] [place] [address] Performed By: #### 2 4321-2 ####[facility] LABCLIA [id number] [place] [address] [place] Chloride [Moles/Vol] 101 mmol/L Normal 98-107 [facility] Comment on above: Order Comment: Speci men Type: BLOOD SPECIMENOrdering Facility: [facility] Address: [address] [place] [address] Performed By: #### 2 4321-2 ####[facility] LABCLIA [id number] [place] [address] [place] CO2 [Moles/Vol] 33 mmol/L High 22-30 [facility] Comment on above: Order Comment: Speci men Type: BLOOD SPECIMENOrdering Facility: [facility] Address: [address] [place] [address] Performed By: #### 2 4321-2 ####[facility] LABIA [id number] [place] [address] [place] Creatinine [Mass/Vol] 0.34 mg/dL Low 0.58-0.96 [facility] Comment on above: Order Comment: Speci men Type: BLOOD SPECIMENOrdering Facility: [facility] Address: [address] [place] [address] Performed By: #### 2 4321-2 ####[facility] LABIA [id number] [place] [address] [place] Creatinine and Glomerular filtration rate.predicted panel (S/P/Bld) 118 mL/min/1.73m??? Normal >=60 [facility] Comment on above: Order Comment: Speci men Type: BLOOD SPECIMENOrdering Facility: [facility] Address: [address] [place] [address] Result Comment: Yon mated Glomerular Filtration Rate (eGFR) is calculated using the 2020 CKD-EPI creatinine equation. This equation utilizes serum creatinine, sex, and age as parameters. The creatinine assay has traceable calibration to isotope dilution-mass spectrometry. Refer to KDIGO guidelines for clinical interpretation. In patients with unstable renal function, e.g. those with acute kidney injury, the eGFR may not accurately reflect actual GFR. Performed By: #### 2 4321-2 ####[facility] LABCLIA [id number] [place] [address] [place] Glucose [Mass/Vol] 120 mg/dL High 74-99 [facility] Comment on above: Order Comment: Speci men Type: BLOOD SPECIMENOrdering Facility: [facility] Address: [address] [place] [address] Result Comment: The [place] Diabetes Association (ADA) provides guidance for cutoff values for fasting glucose and random glucose. The ADA defines fasting as no caloric intake for at least 8 hours. Fasting plasma glucose results between 100 to 125 mg/dL indicate increased risk for diabetes (prediabetes).Fasting plasma glucose results greater than or equal to 126 mg/dL meet the criteria for diagnosis of diabetes. In the absence of unequivocal hyperglycemia, results should be confirmed by repeat testing. In a patient with classic symptoms of hyperglycemia or hyperglycemic crisis, random plasma glucose results greater than or equal to 200 mg/dL meet the criteria for diagnosis of diabetes.Reference: Standards of Medical Care in Diabetes 2016, [place] [employer]. Diabetes Care. 2016.39(Suppl 1). Performed By: #### 2 4321-2 ####[facility] LABCLIA [id number] [place] [address] [place] Potassium [Moles/Vol] 4.3 mmol/L Normal 3.7-5.1 [facility] Comment on above: Order Comment: Speci men Type: BLOOD SPECIMENOrdering Facility: [facility] Address: [address] [place] [address] Performed By: #### 2 4321-2 ####[facility] LABCLIA [id number] [place] [address] [place] Sodium [Moles/Vol] 140 mmol/L Normal 136-144 [facility] Comment on above: Order Comment: Speci men Type: BLOOD SPECIMENOrdering Facility: [facility] Address: [address] [place] [address] Performed By: #### 2 4321-2 ####[facility] LABCLIA [id number] [place] [address] [place] Urea nitrogen [Mass/Vol] 8 mg/dL Normal 7-21 [facility] Comment on above: Order Comment: Speci men Type: BLOOD SPECIMENOrdering Facility: [facility] Address: [address] [place] [address] Performed By: #### 2 4321-2 ####[facility] LABCLIA [id number] [place] [address] [place] CBC panel Auto (Bld)on 07-03 Erythrocyte distribution width (RBC) [Ratio] 15.1 % High 11.5-15.0 [facility] Comment on above: Order Comment: Speci men Type: BLOOD SPECIMENOrdering Facility: [facility] Address: [address] [place] [address] Performed By: #### 5 8410-2 ####[facility] LABIA [id number] [place] [address] [place] Hematocrit (Bld) [Volume fraction] 34.2 % Low 36.0-46.0 [facility] Comment on above: Order Comment: Speci men Type: BLOOD SPECIMENOrdering Facility: [facility] Address: [address] [place] [address] Performed By: #### 5 8410-2 ####[facility] LABCLIA [id number] [place] [address] [place] Hemoglobin (Bld) [Mass/Vol] 10.5 g/dL Low 11.5-15.5 [facility] Comment on above: Order Comment: Speci men Type: BLOOD SPECIMENOrdering Facility: [facility] Address: [address] [place] [address] Performed By: #### 5 8410-2 ####[facility] LABCLIA [id number] [place] [address] [place] MCH (RBC) [Entitic mass] 28.9 pg Normal 26.0-34.0 [facility] Comment on above: Order Comment: Speci men Type: BLOOD SPECIMENOrdering Facility: [facility] Address: [address] [place] [address] Performed By: #### 5 8410-2 ####[facility] LABIA [id number] [place] [address] [place] MCHC (RBC) [Mass/Vol] 30.7 g/dL Normal 30.5-36.0 [facility] Comment on above: Order Comment: Speci men Type: BLOOD SPECIMENOrdering Facility: [facility] Address: [address] [place] [address] Performed By: #### 5 8410-2 ####[facility] [id number] [place] [address] [place] MCV (RBC) [Entitic vol] 94.2 fL Normal 80.0-100.0 [facility] Comment on above: Order Comment: Speci men Type: BLOOD SPECIMENOrdering Facility: [facility] Address: [address] [place] [address] Performed By: #### 5 8410-2 ####[facility] [id number] [place] [address] [place] Nucleated RBC (Bld) [#/Vol] 10*3/uL Normal <0.01 [facility] Comment on above: Order Comment: Speci men Type: BLOOD SPECIMENOrdering Facility: [facility] Address: [address] [place] [address] Performed By: #### 5 8410-2 ####[facility] [id number] [place] [address] [place] Platelet mean volume (Bld) [Entitic vol] 11.1 fL Normal 9.0-12.7 [facility] Comment on above: Order Comment: Speci men Type: BLOOD SPECIMENOrdering Facility: [facility] Address: [address] [place] [address] Performed By: #### 5 8410-2 ####[facility] LABCLIA [id number] [place] [address] [place] Platelets (Bld) [#/Vol] 193 10*3/uL Normal 150-400 [facility] Comment on above: Order Comment: Speci men Type: BLOOD SPECIMENOrdering Facility: [facility] Address: [address] [place] [address] Performed By: #### 5 8410-2 ####[facility] LABIA [id number] [place] [address] [place] RBC (Bld) [#/Vol] 3.63 10*6/uL Low 3.90-5.20 [facility] Comment on above: Order Comment: Speci men Type: BLOOD SPECIMENOrdering Facility: [facility] Address: [address] [place] [address] Performed By: #### 5 8410-2 ####[facility] LABIA [id number] [place] [address] [place] WBC (Bld) [#/Vol] 7.36 10*3/uL Normal 3.70-11.00 [facility] Comment on above: Order Comment: Speci men Type: BLOOD SPECIMENOrdering Facility: [facility] Address: [address] [place] [address] Performed By: #### 5 8410-2 ####[facility] LABIA [id number] [place] [address] [place] CONSULTon 07-03-[address] [facility] ECG COMPLETEon 07-03-[address] [facility] NURSING PROGon 07-03-[address] [facility] PT EDon 07-03-[address] [facility] THERAPY NTon 07-03-[address] [facility] THERAPY NT Normal [facility] THERAPY NT Normal [facility] ANES POSTPROC EVALon 024 ANES POSTPROC EVAL Normal [facility] ANES PRE-OPon 07-02-2024 ANES PRE-OP Normal [facility] BRIEF OP NOTon 07-02-2024 [address] NOT Normal [facility] NURSING PROGon 07-02-[address] [facility] OPERATIVE NOon 07-02-[address] [facility] SURGICAL PATHOLOGYon [address] [facility] Comment on above: Order Comment: Speci men Type: TISSUE SPECIMENOrdering Facility: [facility] Address: [address] [place] [address] Result Comment: Surg ical Pathology Report Case: [id number] Provider: Maykel Crow MD Collected: 07/02/2024 10:06 AMOrdering Location: Admitting Received: 07/02/2024 11:19 AMPathologist: Jatinder Powell MDSpecimen: Bone, Resection, Right shoulder humerus Performed By: #### S ####[facility] [id number] [place] [address] [facility] LABCLIA [id number] [place] [address] [place] CLINICAL HISTORY Normal [facility] Comment on above: Order Comment: Speci men Type: TISSUE SPECIMENOrdering Facility: [facility] Address: [address] [place] [address] Result Comment: Pre- op diagnosis:Glenohumeral arthritis, right [M19.011]Pre-op exam [Z01.818] Performed By: #### S ####[facility] [id number] [place] [address] [facility] LABCLIA [id number] [place] [address] [place] FINAL DIAGNOSIS Normal [facility] Comment on above: Order Comment: Speci men Type: TISSUE SPECIMENOrdering Facility: [facility] Address: [address] [place] [address] Result Comment: Righ t humeral head, arthroplasty:- Degenerative joint disease.- Synovium and bone with granulomatous reaction to calcific deposits. Performed By: #### S ####[facility]ENTERCLIA [id number] [place] [id number] [facility] LABCLIA [id number] [address] OF [facility] FINAL PERFORMING LAB Normal [facility] Comment on above: Order Comment: Speci men Type: TISSUE SPECIMENOrdering Facility: [facility] Address: [address] [place] [address] Result Comment: Diag nostic interpretation performed at: [facility], [address] [facility], [place] [id number] CLIA# [id number] Director: Светлана Schilling MD Performed By: #### S ####[facility] LABORATORYCLIA [id number] [place] [id number] [facility] LABCLIA [id number] [address] [place]OSS [place] Normal [facility] Comment on above: Order Comment: Speci men Type: TISSUE SPECIMENOrdering Facility: [facility] Address: [address] [place] [address] Result Comment: A. B one, ResectionReceived fresh labeled as right shoulder humerus is a humeral head measuring 4.2 x 3.5 x 1.5 cm. The articular surface is diffusely eburnated. Also present is a segment of soft tissue measuring 2.5 x 1.5 x 0.5 cm. Public Transportation Inspector sections are submitted as follows:A1 soft tissue in formalinA2 cross-sections of bone following decalcification in formic acidGross examination performed at [facility], [address] [place] [address] CLIA# [id number] 07/02/24 11:58 AM Performed By: #### S ####[facility] LABORATORYCLIA [id number] [facility] [place] [address] [place] [facility] LABCLIA [id number] [facility] [place] [address] [place] XR SHOULDER 2V AP/TRUE AP RT on 07-02-2024 XR SHOULDER 2V AP/TRUE AP RT Normal [facility] Basic metabolic 2000 panelon 06-18-2024 Anion gap [Moles/Vol] 10 mmol/L Normal 8-15 [facility] Comment on above: Order Comment: Speci men Type: BLOOD SPECIMENOrdering Facility: [facility] Address: [address] [place] [address] Performed By: #### 2 4321-2 ####[facility] [id number] [place] [address] [place] Calcium [Mass/Vol] 9.5 mg/dL Normal 8.5-10.2 [facility] Comment on above: Order Comment: Speci men Type: BLOOD SPECIMENOrdering Facility: [facility] Address: [address] [place] [address] Performed By: #### 2 4321-2 ####[facility] [id number] [place] [address] [place] Chloride [Moles/Vol] 100 mmol/L Normal 98-107 [facility] Comment on above: Order Comment: Speci men Type: BLOOD SPECIMENOrdering Facility: [facility] Address: [address] [place] [address] Performed By: #### 2 4321-2 ####[facility] [id number] [place] [address] [place] CO2 [Moles/Vol] 29 mmol/L Normal 22-30 [facility] Comment on above: Order Comment: Speci men Type: BLOOD SPECIMENOrdering Facility: [facility] Address: [address] [place] [address] Performed By: #### 2 4321-2 ####[facility] [id number] [address] [place] Creatinine [Mass/Vol] 0.37 mg/dL Low 0.58-0.96 [facility] Comment on above: Order Comment: Speci men Type: BLOOD SPECIMENOrdering Facility: [facility] Address: [address] [place] [address] Performed By: #### 2 4321-2 ####[facility] [id number] [place] [address] [place] Creatinine and Glomerular filtration rate.predicted panel (S/P/Bld) 116 mL/min/1.73m??? Normal >=60 [facility] Comment on above: Order Comment: Mirthai men Type: BLOOD SPECIMENOrdering Facility: [facility] Address: [address] [place] [address] Result Comment: Yon mated Glomerular Filtration Rate (eGFR) is calculated using the 2020 CKD-EPI creatinine equation. This equation utilizes serum creatinine, sex, and age as parameters. The creatinine assay has traceable calibration to isotope dilution-mass spectrometry. Refer to KDIGO guidelines for clinical interpretation. In patients with unstable renal function, e.g. those with acute kidney injury, the eGFR may not accurately reflect actual GFR. Performed By: #### 2 4321-2 ####[facility] [id number] [place] [address] [place] Glucose [Mass/Vol] 104 mg/dL High 74-99 [facility] Comment on above: Order Comment: Speci men Type: BLOOD SPECIMENOrdering Facility: [facility] Address: [address] [place] [address] Result Comment: The [place] Diabetes Association (ADA) provides guidance for cutoff values for fasting glucose and random glucose. The ADA defines fasting as no caloric intake for at least 8 hours. Fasting plasma glucose results between 100 to 125 mg/dL indicate increased risk for diabetes (prediabetes).Fasting plasma glucose results greater than or equal to 126 mg/dL meet the criteria for diagnosis of diabetes. In the absence of unequivocal hyperglycemia, results should be confirmed by repeat testing. In a patient with classic symptoms of hyperglycemia or hyperglycemic crisis, random plasma glucose results greater than or equal to 200 mg/dL meet the criteria for diagnosis of diabetes.Reference: Standards of Medical Care in Diabetes 2016, [place] [employer]. Diabetes Care. 2016.39(Suppl 1). Performed By: #### 2 4321-2 ####[facility] MILLTOWAZLIA [id number] [place] [address] [place] Potassium [Moles/Vol] 3.9 mmol/L Normal 3.7-5.1 [facility] Comment on above: Order Comment: Elodia fonseca Type: BLOOD SPECIMENOrdering Facility: [facility] Address: [address] [place] [address] Performed By: #### 2 4321-2 ####[facility] [id number] [place] [address] [place] Sodium [Moles/Vol] 139 mmol/L Normal 136-144 [facility] Comment on above: Order Comment: Elodia fonseca Type: BLOOD SPECIMENOrdering Facility: [facility] Address: [address] [place] [address] Performed By: #### 2 4321-2 ####[facility] JACKSONLIA [id number] [place] [address] [place] Urea nitrogen [Mass/Vol] 19 mg/dL Normal 7-21 [facility] Comment on above: Order Comment: Elodia fonseca Type: BLOOD SPECIMENOrdering Facility: [facility] Address: [address] [place] [address] Performed By: #### 2 4321-2 ####[facility] [id number] [place] [address] [place] CBC W Auto Differential pane l (Bld)on 06-18-2024 Basophils (Bld) [#/Vol] 0.05 10*3/uL Normal <0.11 [facility] Comment on above: Order Comment: Speci men Type: BLOOD SPECIMENOrdering Facility: [facility] Address: [address] [place] [address] Performed By: #### 5 7021-8 ####[facility] ERWAZLIA [id number] [place] [address] [place] Basophils/100 WBC (Bld) 0.8 % Normal [facility] Comment on above: Order Comment: Speci men Type: BLOOD SPECIMENOrdering Facility: [facility] Address: [address] [place] [address] Performed By: #### 5 7021-8 ####[facility] [id number] [place] [address] [place] Differential cell count method Nom (Bld) Auto Normal [facility] Comment on above: Order Comment: Speci men Type: BLOOD SPECIMENOrdering Facility: [facility] Address: [address] [place] [address] Performed By: #### 5 7021-8 ####[facility] [id number] [place] [address] [place] Eosinophils (Bld) [#/Vol] 0.13 10*3/uL Normal <0.46 [facility] Comment on above: Order Comment: Speci men Type: BLOOD SPECIMENOrdering Facility: [facility] Address: [address] [place] [address] Performed By: #### 5 7021-8 ####[facility] [id number] [place] [address] [place] Eosinophils/100 WBC (Bld) 2.0 % Normal [facility] Comment on above: Order Comment: Speci men Type: BLOOD SPECIMENOrdering Facility: [facility] Address: [address] [place] [address] Performed By: #### 5 7021-8 ####[facility] RONPOMPEIIESMER [id number] [place] [address] [place] Erythrocyte distribution width (RBC) [Ratio] 14.9 % Normal 11.5-15.0 [facility] Comment on above: Order Comment: Speci men Type: BLOOD SPECIMENOrdering Facility: [facility] Address: [address] [place] [address] Performed By: #### 5 7021-8 ####[facility] [id number] [place] [address] [place] Hematocrit (Bld) [Volume fraction] 41.1 % Normal 36.0-46.0 [facility] Comment on above: Order Comment: Speci men Type: BLOOD SPECIMENOrdering Facility: [facility] Address: [address] [place] [address] Performed By: #### 5 7021-8 ####[facility] [id number] [place] [address] [place] Hemoglobin (Bld) [Mass/Vol] 12.4 g/dL Normal 11.5-15.5 [facility] Comment on above: Order Comment: Speci men Type: BLOOD SPECIMENOrdering Facility: [facility] Address: [address] [place] [address] Performed By: #### 5 7021-8 ####[facility] [id number] [place] [address] [place] Immature granulocytes (Bld) [#/Vol] 10*3/uL Normal <0.10 [facility] Comment on above: Order Comment: Speci men Type: BLOOD SPECIMENOrdering Facility: [facility] Address: [address] [place] [address] Performed By: #### 5 7021-8 ####[facility] RONPOMPEIINCLIA [id number] [place] [address] [place] Immature granulocytes/100 WBC (Bld) 0.2 % Normal [facility] Comment on above: Order Comment: Speci men Type: BLOOD SPECIMENOrdering Facility: [facility] Address: [address] [place] [address] Performed By: #### 5 7021-8 ####[facility] [id number] [place] [address] [place] Lymphocytes (Bld) [#/Vol] 0.91 10*3/uL Low 1.00-4.00 [facility] Comment on above: Order Comment: Speci men Type: BLOOD SPECIMENOrdering Facility: [facility] Address: [address] [place] [address] Performed By: #### 5 7021-8 ####[facility] [id number] [place] [address] [place] Lymphocytes/100 WBC (Bld) 14.0 % Normal [facility] Comment on above: Order Comment: Speci men Type: BLOOD SPECIMENOrdering Facility: [facility] Address: [address] [place] [address] Performed By: #### 5 7021-8 ####[facility] [id number] [place] [address] [place] MCH (RBC) [Entitic mass] 28.3 pg Normal 26.0-34.0 [facility] Comment on above: Order Comment: Speci men Type: BLOOD SPECIMENOrdering Facility: [facility] Address: [address] [place] [address] Performed By: #### 5 7021-8 ####[facility] [id number] [place] [address] [place] MCHC (RBC) [Mass/Vol] 30.2 g/dL Low 30.5-36.0 [facility] Comment on above: Order Comment: Speci men Type: BLOOD SPECIMENOrdering Facility: [facility] Address: [address] [place] [address] Performed By: #### 5 7021-8 ####[facility] [id number] [place] [address] [place] MCV (RBC) [Entitic vol] 93.8 fL Normal 80.0-100.0 [facility] Comment on above: Order Comment: Speci men Type: BLOOD SPECIMENOrdering Facility: [facility] Address: [address] [place] [address] Performed By: #### 5 7021-8 ####[facility] [id number] [place] [address] [place] Monocytes (Bld) [#/Vol] 0.65 10*3/uL Normal <0.87 [facility] Comment on above: Order Comment: Speci men Type: BLOOD SPECIMENOrdering Facility: [facility] Address: [address] [place] [address] Performed By: #### 5 7021-8 ####[facility] [id number] [place] [address] [place] Monocytes/100 WBC (Bld) 10.0 % Normal [facility] Comment on above: Order Comment: Speci men Type: BLOOD SPECIMENOrdering Facility: [facility] Address: [address] [place] [address] Performed By: #### 5 7021-8 ####[facility] [id number] [place] [address] [place] Neutrophils (Bld) [#/Vol] 4.76 10*3/uL Normal 1.45-7.50 [facility] Comment on above: Order Comment: Speci men Type: BLOOD SPECIMENOrdering Facility: [facility] Address: [address] [place] [address] Performed By: #### 5 7021-8 ####[facility] RONLUTHER[facility]IANALIA [id number] [place] [address] [place] Neutrophils/100 WBC (Bld) 73.0 % Normal [facility] Comment on above: Order Comment: Speci men Type: BLOOD SPECIMENOrdering Facility: [facility] Address: [address] [place] [address] Performed By: #### 5 7021-8 ####[facility] [id number] [place] [address] [place] Nucleated RBC (Bld) [#/Vol] 10*3/uL Normal <0.01 [facility] Comment on above: Order Comment: Speci men Type: BLOOD SPECIMENOrdering Facility: [facility] Address: [address] [place] [address] Performed By: #### 5 7021-8 ####[facility] [id number] [place] [address] [place] Nucleated RBC/100 WBC (Bld) [Ratio] 0.0 /[address] [facility] Comment on above: Order Comment: Speci men Type: BLOOD SPECIMENOrdering Facility: [facility] Address: [address] [place] [address] Performed By: #### 5 7021-8 ####[facility]SON[facility]IA [id number] [place] [address] [place] Platelet mean volume (Bld) [Entitic vol] 10.6 fL Normal 9.0-12.7 [facility] Comment on above: Order Comment: Speci men Type: BLOOD SPECIMENOrdering Facility: [facility] Address: [address] [place] [address] Performed By: #### 5 7021-8 ####[facility] RIVERNCLIA [id number] [place] [address] [place] Platelets (Bld) [#/Vol] 213 10*3/uL Normal 150-400 [facility] Comment on above: Order Comment: Speci men Type: BLOOD SPECIMENOrdering Facility: [facility] Address: [address] [place] [address] Performed By: #### 5 7021-8 ####[facility] ALIZANCLIA [id number] [place] [address] [place] RBC (Bld) [#/Vol] 4.38 10*6/uL Normal 3.90-5.20 [facility] Comment on above: Order Comment: Speci men Type: BLOOD SPECIMENOrdering Facility: [facility] Address: [address] [place] [address] Performed By: #### 5 7021-8 ####[facility] RONGatitoNCLIA [id number] [place] [address] [place] WBC (Bld) [#/Vol] 6.51 10*3/uL Normal 3.70-11.00 [facility] Comment on above: Order Comment: Speci men Type: BLOOD SPECIMENOrdering Facility: [facility] Address: [address] [place] [address] Performed By: #### 5 7021-8 ####[facility] ALIZANCLIA [id number] [place] [address] [place] CNPNon 06-18-[address] [facility] [id number] 06-18-[address] [facility] HISTORY PHYSICALon HISTORY PHYSICAL Normal [facility] MR Shoulder - right WO contr destiney 06-18-2024 IMPRESSION: MARKED GLENOHUMERAL OSTEOARTHRITIS LIKELY SECONDARY TO INFLAMMATORY ARTHRITIS. ROTATOR CUFF TENDINOSIS WITH INFRASPINATUS PARTIAL THICKNESS DELAMINATING TEAR. FINDINGS SUGGESTIVE OF COMPLETE TEAR OF THE LONG OF THE BICEPS TENDON. MARKED MUSCLE ATROPHY AND FATTY CHANGES MOST LIKELY REPRESENTING CHRONIC MYOSITIS RELATED TO THE KNOWN SYSTEMIC SCLEROSIS. FINDINGS OF CHRONIC DISTAL CLAVICLE OSTEOLYSIS. MILD SUBDELTOID/SUBACROMIAL BURSITIS. Director Of Marketing Operations: RUSS Transcribe Date/Time: Jun 18 2024 8:52A Dictated by : ADOLFO SANTIAGO MD This examination was interpreted and the report reviewed and electronically signed by: ADOLFO SANTIAGO MD on Jun 18 2024 10:46AM [facility] DIVISION OF RADIOLOGY * * *Final Report* * * DATE OF EXAM: Jun 18 2024 8:23AM [facility] 0240 - MRI SHOULDER WO IVCON RT / PROCEDURE REASON: multiple diagnoses * * * * Physician Interpretation * * * * EXAMINATION: MRI SHOULDER WO IVCON RT HISTORY: Glenohumeral arthritis, right Pre-op exam TECHNIQUE: Routine non-contrast MRI of the shoulder. MQ: MRS_1A COMPARISON: Radiographs dated 11/29/2023. RESULT: TENDONS: Rotator cuff tendons: -Supraspinatus: Intact with moderate tendinosis -Infraspinatus: Partial thickness delaminating tear involving nearly the entire width of the tendon with a synovial filled cyst extending to the myotendinous junction and measuring up to 3 cm (series 4 image 15). -Subscapularis: Intact with mild tendinosis -Teres Minor: Intact tendon Biceps (Long head) Tendon: Not seen at the intra-articular portion with normal course MUSCLES: Rotator cuff muscles: -Supraspinatus: Marked atrophy and marked fatty changes. -Infraspinatus: Marked atrophy and marked fatty changes. -Subscapularis: Marked atrophy and marked fatty changes. -Teres Minor: Marked atrophy and marked fatty changes. Other muscles: Fatty changes. JOINTS: Glenohumeral Joint: -Labrum: Degeneration and tearing -Cartilage: Marked cartilage loss/fissuring with articular surface irregularity, bone remodeling and reactive subchondral bone marrow changes. -Joint Fluid: No effusion . Mild synovitis. Acromioclavicular Joint: Chronic deformity and absence of the distal clavicle. BONES AND MARROW: No evidence of fracture or suspicious bone marrow replacing process . Reactive subcortical cystic changes at the greater tuberosity. OTHER: Subdeltoid/Subacromial Bursa: Mild bursal distention with synovial thickening/proliferation. Other: No other significant findings. Localizer images: Non-diagnostic. DIVISION OF RADIOLOGY Provider, [facility] - 06/18/2024 * * *Final Report* * * DATE OF EXAM: Jun 18 2024 8:23AM [facility] 0240 - MRI SHOULDER WO IVCON RT / PROCEDURE REASON: multiple diagnoses * * * * Physician Interpretation * * * * EXAMINATION: MRI SHOULDER WO IVCON RT HISTORY: Glenohumeral arthritis, right Pre-op exam TECHNIQUE: Routine non-contrast MRI of the shoulder. MQ: MRS_1A COMPARISON: Radiographs dated 11/29/2023. RESULT: TENDONS: Rotator cuff tendons: -Supraspinatus: Intact with moderate tendinosis -Infraspinatus: Partial thickness delaminating tear involving nearly the entire width of the tendon with a synovial filled cyst extending to the myotendinous junction and measuring up to 3 cm (series 4 image 15). -Subscapularis: Intact with mild tendinosis -Teres Minor: Intact tendon Biceps (Long head) Tendon: Not seen at the intra-articular portion with normal course MUSCLES: Rotator cuff muscles: -Supraspinatus: Marked atrophy and marked fatty changes. -Infraspinatus: Marked atrophy and marked fatty changes. -Subscapularis: Marked atrophy and marked fatty changes. -Teres Minor: Marked atrophy and marked fatty changes. Other muscles: Fatty changes. JOINTS: Glenohumeral Joint: -Labrum: Degeneration and tearing -Cartilage: Marked cartilage loss/fissuring with articular surface irregularity, bone remodeling and reactive subchondral bone marrow changes. -Joint Fluid: No effusion . Mild synovitis. Acromioclavicular Joint: Chronic deformity and absence of the distal clavicle. BONES AND MARROW: No evidence of fracture or suspicious bone marrow replacing process . Reactive subcortical cystic changes at the greater tuberosity. OTHER: Subdeltoid/Subacromial Bursa: Mild bursal distention with synovial thickening/proliferation. Other: No other significant findings. Localizer images: Non-diagnostic. IMPRESSION IMPRESSION: MARKED GLENOHUMERAL OSTEOARTHRITIS LIKELY SECONDARY TO INFLAMMATORY ARTHRITIS. ROTATOR CUFF TENDINOSIS WITH INFRASPINATUS PARTIAL THICKNESS DELAMINATING TEAR. FINDINGS SUGGESTIVE OF COMPLETE TEAR OF THE LONG OF THE BICEPS TENDON. MARKED MUSCLE ATROPHY AND FATTY CHANGES MOST LIKELY REPRESENTING CHRONIC MYOSITIS RELATED TO THE KNOWN SYSTEMIC SCLEROSIS. FINDINGS OF CHRONIC DISTAL CLAVICLE OSTEOLYSIS. MILD SUBDELTOID/SUBACROMIAL BURSITIS. Director Of Marketing Operations: PSCSarah Transcribe Date/Time: Jun 18 2024 8:52A Dictated by : ADOLFO SANTIAGO MD This examination was interpreted and the report reviewed and electronically signed by: ADOLFO SANTIAGO MD on Jun 18 2024 10:46AM EST [facility] Radiology Study observation (narrative) [facility] MR Shoulder - right WO contr astOrdered By: Ccf Provider on 06-18-2024 [facility] MRI SHOULDER WO IVCON RTon 1 08-19-2023 MRI SHOULDER WO IVCON RT Normal [facility] TYPE AND SCREEN,30 DAYon ABO O Normal [facility] Comment on above: Order Comment: Speci men Type: BLOOD SPECIMENOrdering Facility: [facility] Address: [address] [place] [address] Performed By: #### T SCR30 ####[facility] BLOOD BANKCLIA [id number] [place] [address] [place] Rh Nom (Bld) Positive Normal [facility] Comment on above: Order Comment: Speci men Type: BLOOD SPECIMENOrdering Facility: [facility] Address: [address] [place] [address] Performed By: #### T SCR30 ####[facility] BLOOD BANKCLIA [id number] [place] [address] [place] CNOVon 05-16-[address] [facility] 25(OH)D3 SerPl-mCncon 2023 25-hydroxyvitamin D3 [Mass/Vol] 47.2 ng/mL Normal 31.0-80.0 [facility] Comment on above: Order Comment: Speci men Type: BLOOD SPECIMENOrdering Facility: [facility] Address: [address] [place] [address] Performed By: #### 1 989-3 ####[facility] LABCLIA [id number] [place] [address] [place] 25-hydroxyvitamin D3 [Mass/V ol]on 04-18-2024 Interpretation and review of laboratory results Normal [facility] CBC W Auto Differential pane l (Bld)on 04-18-2024 Basophils (Bld) [#/Vol] 0.06 10*3/uL [facility] Basophils/100 WBC (Bld) 0.8 % [facility] Differential cell count method Nom (Bld) Auto [facility] Eosinophils (Bld) [#/Vol] 0.13 10*3/uL [facility] Eosinophils/100 WBC (Bld) 1.8 % [facility] Erythrocyte distribution width (RBC) [Ratio] 15.1 % High 11.5 - 15.0 % [facility] Hematocrit (Bld) [Volume fraction] 42.8 % 36.0 - 46.0 % [facility] Hemoglobin (Bld) [Mass/Vol] 13.1 g/dL 11.5 - 15.5 g/dL [facility] Immature granulocytes (Bld) [#/Vol] 0.03 10*3/uL [facility] Immature granulocytes/100 WBC (Bld) 0.4 % [facility] Interpretation and review of laboratory results Abnormal [facility] Lymphocytes (Bld) [#/Vol] 1.12 10*3/uL [facility] Lymphocytes/100 WBC (Bld) 15.8 % [facility] MCH (RBC) [Entitic mass] 28.5 pg 26.0 - 34.0 pg [facility] MCHC (RBC) [Mass/Vol] 30.6 g/dL 30.5 - 36.0 g/dL [facility] MCV (RBC) [Entitic vol] 93.0 fL 80.0 - 100.0 fL [facility] Monocytes (Bld) [#/Vol] 0.48 10*3/uL [facility] Monocytes/100 WBC (Bld) 6.8 % [facility] Neutrophils (Bld) [#/Vol] 5.25 10*3/uL [facility] Neutrophils/100 WBC (Bld) 74.4 % [facility] Nucleated RBC (Bld) [#/Vol] [facility] Nucleated RBC/100 WBC (Bld) [Ratio] 0.0 % /100 WBC [facility] Platelet mean volume (Bld) [Entitic vol] 11.2 fL 9.0 - 12.7 fL [facility] Platelets (Bld) [#/Vol] 241 10*3/uL [facility] RBC (Bld) [#/Vol] 4.60 10*6/uL 3.90 - 5.2 0 m/uL [facility] WBC (Bld) [#/Vol] 7.07 10*3/uL [facility] Basophils (Bld) [#/Vol] 0.06 10*3/uL Normal <0.11 [facility] Comment on above: Order Comment: Speci men Type: BLOOD SPECIMENOrdering Facility: [facility] Address: [address] [place] [address] Performed By: #### 5 7021-8 ####[facility] LABCLIA [id number] [place] [address] [place] Basophils/100 WBC (Bld) 0.8 % Normal [facility] Comment on above: Order Comment: Speci men Type: BLOOD SPECIMENOrdering Facility: [facility] Address: [address] [place] [address] Performed By: #### 5 7021-8 ####[facility] LABCLIA [id number] [place] [address] [place] Differential cell count method Nom (Bld) Auto Normal [facility] Comment on above: Order Comment: Speci men Type: BLOOD SPECIMENOrdering Facility: [facility] Address: [address] [place] [address] Performed By: #### 5 7021-8 ####[facility] LABIA [id number] [place] [address] [place] Eosinophils (Bld) [#/Vol] 0.13 10*3/uL Normal <0.46 [facility] Comment on above: Order Comment: Speci men Type: BLOOD SPECIMENOrdering Facility: [facility] Address: [address] [place] [address] Performed By: #### 5 7021-8 ####[facility] LABCLIA [id number] [place] [address] [place] Eosinophils/100 WBC (Bld) 1.8 % Normal [facility] Comment on above: Order Comment: Speci men Type: BLOOD SPECIMENOrdering Facility: [facility] Address: [address] [place] [address] Performed By: #### 5 7021-8 ####[facility] LABCLIA [id number] [place] [address] [place] Erythrocyte distribution width (RBC) [Ratio] 15.1 % High 11.5-15.0 [facility] Comment on above: Order Comment: Speci men Type: BLOOD SPECIMENOrdering Facility: [facility] Address: [address] [place] [address] Performed By: #### 5 7021-8 ####[facility] LABCLIA [id number] [place] [address] [place] Hematocrit (Bld) [Volume fraction] 42.8 % Normal 36.0-46.0 [facility] Comment on above: Order Comment: Speci men Type: BLOOD SPECIMENOrdering Facility: [facility] Address: [address] [place] [address] Performed By: #### 5 7021-8 ####[facility] LABCLIA [id number] [place] [address] [place] Hemoglobin (Bld) [Mass/Vol] 13.1 g/dL Normal 11.5-15.5 [facility] Comment on above: Order Comment: Speci men Type: BLOOD SPECIMENOrdering Facility: [facility] Address: [address] [place] [address] Performed By: #### 5 7021-8 ####[facility] LABCLIA [id number] [place] [address] [place] Immature granulocytes (Bld) [#/Vol] 0.03 10*3/uL Normal <0.10 [facility] Comment on above: Order Comment: Speci men Type: BLOOD SPECIMENOrdering Facility: [facility] Address: [address] [place] [address] Performed By: #### 5 7021-8 ####[facility] LABCLIA [id number] [place] [address] [place] Immature granulocytes/100 WBC (Bld) 0.4 % Normal [facility] Comment on above: Order Comment: Speci men Type: BLOOD SPECIMENOrdering Facility: [facility] Address: [address] [place] [address] Performed By: #### 5 7021-8 ####[facility] LABCLIA [id number] [place] [address] [place] Lymphocytes (Bld) [#/Vol] 1.12 10*3/uL Normal 1.00-4.00 [facility] Comment on above: Order Comment: Speci men Type: BLOOD SPECIMENOrdering Facility: [facility] Address: [address] [place] [address] Performed By: #### 5 7021-8 ####[facility] LABCLIA [id number] [place] [address] [place] Lymphocytes/100 WBC (Bld) 15.8 % Normal [facility] Comment on above: Order Comment: Speci men Type: BLOOD SPECIMENOrdering Facility: [facility] Address: [address] [place] [address] Performed By: #### 5 7021-8 ####[facility] LABCLIA [id number] [place] [address] [place] MCH (RBC) [Entitic mass] 28.5 pg Normal 26.0-34.0 [facility] Comment on above: Order Comment: Speci men Type: BLOOD SPECIMENOrdering Facility: [facility] Address: [address] [place] [address] Performed By: #### 5 7021-8 ####[facility] LABCLIA [id number] [place] [address] [place] MCHC (RBC) [Mass/Vol] 30.6 g/dL Normal 30.5-36.0 [facility] Comment on above: Order Comment: Speci men Type: BLOOD SPECIMENOrdering Facility: [facility] Address: [address] [place] [address] Performed By: #### 5 7021-8 ####[facility] LABIA [id number] [place] [address] [place] MCV (RBC) [Entitic vol] 93.0 fL Normal 80.0-100.0 [facility] Comment on above: Order Comment: Speci men Type: BLOOD SPECIMENOrdering Facility: [facility] Address: [address] [place] [address] Performed By: #### 5 7021-8 ####[facility] LABIA [id number] [place] [address] [place] Monocytes (Bld) [#/Vol] 0.48 10*3/uL Normal <0.87 [facility] Comment on above: Order Comment: Speci men Type: BLOOD SPECIMENOrdering Facility: [facility] Address: [address] [place] [address] Performed By: #### 5 7021-8 ####[facility] LABIA [id number] [place] [address] [place] Monocytes/100 WBC (Bld) 6.8 % Normal [facility] Comment on above: Order Comment: Speci men Type: BLOOD SPECIMENOrdering Facility: [facility] Address: [address] [place] [address] Performed By: #### 5 7021-8 ####[facility] LABIA [id number] [place] [address] [place] Neutrophils (Bld) [#/Vol] 5.25 10*3/uL Normal 1.45-7.50 [facility] Comment on above: Order Comment: Speci men Type: BLOOD SPECIMENOrdering Facility: [facility] Address: [address] [place] [address] Performed By: #### 5 7021-8 ####[facility] LABCLIA [id number] [place] [address] [place] Neutrophils/100 WBC (Bld) 74.4 % Normal [facility] Comment on above: Order Comment: Speci men Type: BLOOD SPECIMENOrdering Facility: [facility] Address: [address] [place] [address] Performed By: #### 5 7021-8 ####[facility] LABCLIA [id number] [place] [address] [place] Nucleated RBC (Bld) [#/Vol] 10*3/uL Normal <0.01 [facility] Comment on above: Order Comment: Speci men Type: BLOOD SPECIMENOrdering Facility: [facility] Address: [address] [place] [address] Performed By: #### 5 7021-8 ####[facility] LABCLIA [id number] [place] [address] [place] Nucleated RBC/100 WBC (Bld) [Ratio] 0.0 /[address] [facility] Comment on above: Order Comment: Speci men Type: BLOOD SPECIMENOrdering Facility: [facility] Address: [address] [place] [address] Performed By: #### 5 7021-8 ####[facility] LABCLIA [id number] [place] [address] [place] Platelet mean volume (Bld) [Entitic vol] 11.2 fL Normal 9.0-12.7 [facility] Comment on above: Order Comment: Speci men Type: BLOOD SPECIMENOrdering Facility: [facility] Address: [address] [place] [address] Performed By: #### 5 7021-8 ####[facility] LABCLIA [id number] [place] [address] [place] Platelets (Bld) [#/Vol] 241 10*3/uL Normal 150-400 [facility] Comment on above: Order Comment: Speci men Type: BLOOD SPECIMENOrdering Facility: [facility] Address: [address] [place] [address] Performed By: #### 5 7021-8 ####[facility] LABCLIA [id number] [place] [address] [place] RBC (Bld) [#/Vol] 4.60 10*6/uL Normal 3.90-5.20 [facility] Comment on above: Order Comment: Speci men Type: BLOOD SPECIMENOrdering Facility: [facility] Address: [address] [place] [address] Performed By: #### 5 7021-8 ####[facility] LABIA [id number] [place] [address] [place] WBC (Bld) [#/Vol] 7.07 10*3/uL Normal 3.70-11.00 [facility] Comment on above: Order Comment: Speci men Type: BLOOD SPECIMENOrdering Facility: [facility] Address: [address] [place] [address] Performed By: #### 5 7021-8 ####[facility] LABCLIA [id number] [place] [address] [place] CK SerPl-cCncon 04-18-2024 CK [Catalytic activity/Vol] 31 U/L Low 42-196 [facility] Comment on above: Order Comment: Speci men Type: BLOOD SPECIMENOrdering Facility: [facility] Address: [address] [place] [address] Performed By: #### 2 157-6, 83475-2 ####[facility] LABCLIA [id number] [place] [id number] [place] CNOVon 04-18-[address] [facility] CREATINE KINASE/CKon 024 CK [Catalytic activity/Vol] 31 U/L Low 42 - 196 U/L [facility] Comprehensive metabolic 2000 panelon 04-18-2024 Albumin [Mass/Vol] 4.1 g/dL 3.9 - 4.9 g/dL [facility] ALP [Catalytic activity/Vol] 58 U/L 34 - 123 U/L [facility] ALT [Catalytic activity/Vol] 11 U/L 7 - 38 U/L [facility] Anion gap [Moles/Vol] 9 mmol/L 8 - 15 mmol/L [facility] AST [Catalytic activity/Vol] 15 U/L 13 - 35 U/L [facility] Bilirubin [Mass/Vol] 0.3 mg/dL 0.2 - 1 .3 mg/dL [facility] Calcium [Mass/Vol] 9.7 mg/dL 8.5 - 10. 2 mg/dL [facility] Chloride [Moles/Vol] 99 mmol/L 98 - 10 7 mmol/L [facility] CO2 [Moles/Vol] 31 mmol/L High 22 - 30 mmol/L [facility] Creatinine [Mass/Vol] 0.31 mg/dL Low 0.58 - 0.96 mg/dL [facility] GFR/1.73 sq M.predicted among non-blacks MDRD (S/P/Bld) [Vol rate/Area] 121 mL/min/{1.73_m2} - PINF [facility] Comment on above: Estimated Glomerular Filtration Rate (eGFR) is calculated using the 2020 CKD-EPI creatinine equation. This equation utilizes serum creatinine, sex, and age as parameters. The creatinine assay has traceable calibration to isotope dilution-mass spectrometry. Refer to KDIGO guidelines for clinical interpretation. In patients with unstable renal function, e.g. those with acute kidney injury, the eGFR may not accurately reflect actual GFR. Glucose [Mass/Vol] 91 mg/dL 74 - 99 mg/dL [facility] Comment on above: The [place] Diab[employer] s Association (ADA) provides guidance for cutoff values for fasting glucose and random glucose. The ADA defines fasting as no caloric intake for at least 8 hours. Fasting plasma glucose results between 100 to 125 mg/dL indicate increased risk for diabetes (prediabetes). Fasting plasma glucose results greater than or equal to 126 mg/dL meet the criteria for diagnosis of diabetes. In the absence of unequivocal hyperglycemia, results should be confirmed by repeat testing. In a patient with classic symptoms of hyperglycemia or hyperglycemic crisis, random plasma glucose results greater than or equal to 200 mg/dL meet the criteria for diagnosis of diabetes. Reference: Standards of Medical Care in Diabetes 2016, [place] [employer]. Diabetes Care. 2016.39(Suppl 1). Potassium [Moles/Vol] 4.1 mmol/L 3.7 - 5.1 mmol/L [facility] Protein [Mass/Vol] 7.5 g/dL 6.3 - 8.0 g/dL [facility] Sodium [Moles/Vol] 139 mmol/L 136 - 144 mmol/L [facility] Urea nitrogen [Mass/Vol] 15 mg/dL 7 - 21 mg/dL [facility] Albumin [Mass/Vol] 4.1 g/dL Normal 3.9-4.9 [facility] Comment on above: Order Comment: Speci men Type: BLOOD SPECIMENOrdering Facility: [facility] Address: [address] [place] [address] Performed By: #### 2 157-6, 41041-6 ####[facility] LABCLIA [id number] [place] [address] [place] ALP [Catalytic activity/Vol] 58 U/L Normal 34-123 [facility] Comment on above: Order Comment: Speci men Type: BLOOD SPECIMENOrdering Facility: [facility] Address: [address] [place] [address] Performed By: #### 2 157-6, 03044-2 ####[facility] LABCLIA [id number] [place] [id number] [place] ALT [Catalytic activity/Vol] 11 U/L Normal 7-38 [facility] Comment on above: Order Comment: Speci men Type: BLOOD SPECIMENOrdering Facility: [facility] Address: [address] [place] [address] Performed By: #### 2 157-6, 15598-1 ####[facility] LABCLIA [id number] [place] [id number] [place] Anion gap [Moles/Vol] 9 mmol/L Normal 8-15 [facility] Comment on above: Order Comment: Speci men Type: BLOOD SPECIMENOrdering Facility: [facility] Address: [address] [place] [address] Performed By: #### 2 157-6, ####[facility] LABCLIA [id number] [place] [address] [place] AST [Catalytic activity/Vol] 15 U/L Normal 13-35 [facility] Comment on above: Order Comment: Speci men Type: BLOOD SPECIMENOrdering Facility: [facility] Address: [address] [place] [address] Performed By: #### 2 157-6, 36665-2 ####[facility] LABCLIA [id number] [place] [address] [place] Bilirubin [Mass/Vol] 0.3 mg/dL Normal 0.2-1.3 [facility] Comment on above: Order Comment: Speci men Type: BLOOD SPECIMENOrdering Facility: [facility] Address: [address] [place] [address] Performed By: #### 2 157-6, ####[facility] LABCLIA [id number] [place] [address] [place] Calcium [Mass/Vol] 9.7 mg/dL Normal 8.5-10.2 [facility] Comment on above: Order Comment: Speci men Type: BLOOD SPECIMENOrdering Facility: [facility] Address: [address] [place] [address] Performed By: #### 2 157-6, 15129-5 ####[facility] LABCLIA [id number] [place] [address] [place] Chloride [Moles/Vol] 99 mmol/L Normal 98-107 [facility] Comment on above: Order Comment: Speci men Type: BLOOD SPECIMENOrdering Facility: [facility] Address: [address] [place] [address] Performed By: #### 2 157-6, 39239-3 ####[facility] LABCLIA [id number] [place] [address] [place] CO2 [Moles/Vol] 31 mmol/L High 22-30 [facility] Comment on above: Order Comment: Speci men Type: BLOOD SPECIMENOrdering Facility: [facility] Address: [address] [place] [address] Performed By: #### 2 157-6, 93947-7 ####[facility] LABCLIA [id number] [place] [address] [place] Creatinine [Mass/Vol] 0.31 mg/dL Low 0.58-0.96 [facility] Comment on above: Order Comment: Speci men Type: BLOOD SPECIMENOrdering Facility: [facility] Address: [address] [place] [address] Performed By: #### 2 157-6, 90123-0 ####[facility] LABCLIA [id number] [place] [address] [place] Creatinine and Glomerular filtration rate.predicted panel (S/P/Bld) 121 mL/min/1.73m??? Normal >=60 [facility] Comment on above: Order Comment: Speci men Type: BLOOD SPECIMENOrdering Facility: [facility] Address: [address] [place] [address] Result Comment: Yon mated Glomerular Filtration Rate (eGFR) is calculated using the 2020 CKD-EPI creatinine equation. This equation utilizes serum creatinine, sex, and age as parameters. The creatinine assay has traceable calibration to isotope dilution-mass spectrometry. Refer to KDIGO guidelines for clinical interpretation. In patients with unstable renal function, e.g. those with acute kidney injury, the eGFR may not accurately reflect actual GFR. Performed By: #### 2 157-6, 36834-6 ####[facility] LABCLIA [id number] [address] [address] [place] Glucose [Mass/Vol] 91 mg/dL Normal 74-99 [facility] Comment on above: Order Comment: Speci men Type: BLOOD SPECIMENOrdering Facility: [facility] Address: [address] [place] [address] Result Comment: The [place] Diabetes Association (ADA) provides guidance for cutoff values for fasting glucose and random glucose. The ADA defines fasting as no caloric intake for at least 8 hours. Fasting plasma glucose results between 100 to 125 mg/dL indicate increased risk for diabetes (prediabetes).Fasting plasma glucose results greater than or equal to 126 mg/dL meet the criteria for diagnosis of diabetes. In the absence of unequivocal hyperglycemia, results should be confirmed by repeat testing. In a patient with classic symptoms of hyperglycemia or hyperglycemic crisis, random plasma glucose results greater than or equal to 200 mg/dL meet the criteria for diagnosis of diabetes.Reference: Standards of Medical Care in Diabetes 2016, [place] Diabetes Association. Diabetes Care. 2016.39(Suppl 1). Performed By: #### 2 157-6, 91035-8 ####[facility] LABIA [id number] [place] [address] [place] Potassium [Moles/Vol] 4.1 mmol/L Normal 3.7-5.1 [facility] Comment on above: Order Comment: Speci men Type: BLOOD SPECIMENOrdering Facility: [facility] Address: [address] [place] [address] Performed By: #### 2 157-6, 58033-6 ####[facility] LABIA [id number] [address] [address] [place] Protein [Mass/Vol] 7.5 g/dL Normal 6.3-8.0 [facility] Comment on above: Order Comment: Speci men Type: BLOOD SPECIMENOrdering Facility: [facility] Address: [address] [place] [address] Performed By: #### 2 157-6, 35658-2 ####[facility] LABCLIA [id number] [address] [address] [place] Sodium [Moles/Vol] 139 mmol/L Normal 136-144 [facility] Comment on above: Order Comment: Speci men Type: BLOOD SPECIMENOrdering Facility: [facility] Address: [address] [place], [place] [address] Performed By: #### 2 157-6, 24973-5 ####[facility] LABCLIA [id number] [place] [address] [place] Urea nitrogen [Mass/Vol] 15 mg/dL Normal 7-21 [facility] Comment on above: Order Comment: Speci men Type: BLOOD SPECIMENOrdering Facility: [facility] Address: [address] [place] [address] Performed By: #### 2 157-6, 84277-0 ####[facility] LABCLIA [id number] [address] [address] [place] No Panel Informationon 04-18 Interpretation and review of laboratory results Abnormal [facility] VITAMIN D 25 HYDROXYon 04-18 25-hydroxyvitamin D3 [Mass/Vol] 47.2 ng/mL 31.0 - 80.0 ng/mL [facility] CNOVon 03-29-[address] [facility] Ferritin SerPl-mCncon 2023 Ferritin [Mass/Vol] 55.6 ng/mL Normal 14.7-205.1 [facility] Comment on above: Order Comment: Speci men Type: BLOOD SPECIMENOrdering Facility: [facility] Address: [address] [place] [address] Performed By: #### 2 276-4 ####[facility] LABCLIA [id number] [place] [address] [place] CBC W Auto Differential pane l (Bld)on 02-03-2024 Basophils (Bld) [#/Vol] 0.06 10*3/uL [facility] Basophils/100 WBC (Bld) 0.9 % [facility] Differential cell count method Nom (Bld) Auto [facility] Eosinophils (Bld) [#/Vol] 0.18 10*3/uL [facility] Eosinophils/100 WBC (Bld) 2.8 % [facility] Erythrocyte distribution width (RBC) [Ratio] 15.1 % High 11.5 - 15.0 % [facility] Hematocrit (Bld) [Volume fraction] 38.9 % 36.0 - 46.0 % [facility] Hemoglobin (Bld) [Mass/Vol] 11.8 g/dL 11.5 - 15.5 g/dL [facility] Immature granulocytes (Bld) [#/Vol] [facility] Immature granulocytes/100 WBC (Bld) 0.2 % [facility] Interpretation and review of laboratory results Abnormal [facility] Lymphocytes (Bld) [#/Vol] 1.43 10*3/uL [facility] Lymphocytes/100 WBC (Bld) 22.6 % [facility] MCH (RBC) [Entitic mass] 27.6 pg 26.0 - 34.0 pg [facility] MCHC (RBC) [Mass/Vol] 30.3 g/dL Low 30.5 - 36.0 g/dL [facility] MCV (RBC) [Entitic vol] 91.1 fL 80.0 - 100.0 fL [facility] Monocytes (Bld) [#/Vol] 0.67 10*3/uL [facility] Monocytes/100 WBC (Bld) 10.6 % [facility] Neutrophils (Bld) [#/Vol] 3.97 10*3/uL [facility] Neutrophils/100 WBC (Bld) 62.9 % [facility] Nucleated RBC (Bld) [#/Vol] [facility] Nucleated RBC/100 WBC (Bld) [Ratio] 0.0 % /100 WBC [facility] Platelet mean volume (Bld) [Entitic vol] 10.4 fL 9.0 - 12.7 fL [facility] Platelets (Bld) [#/Vol] 257 10*3/uL [facility] RBC (Bld) [#/Vol] 4.27 10*6/uL 3.90 - 5.2 0 m/uL [facility] WBC (Bld) [#/Vol] 6.32 10*3/uL [facility] Basophils (Bld) [#/Vol] 0.06 10*3/uL Normal <0.11 [facility] Comment on above: Order Comment: Speci men Type: BLOOD SPECIMENOrdering Facility: [facility] Address: [address] [place] [address] Performed By: #### 5 7021-8 ####[facility] JACKSONLIA [id number] [place] [address] [place] Basophils/100 WBC (Bld) 0.9 % Normal [facility] Comment on above: Order Comment: Speci men Type: BLOOD SPECIMENOrdering Facility: [facility] Address: [address] [place] [address] Performed By: #### 5 7021-8 ####[facility] [id number] [place] [address] [place] Differential cell count method Nom (Bld) Auto Normal [facility] Comment on above: Order Comment: Speci men Type: BLOOD SPECIMENOrdering Facility: [facility] Address: [address] [place] [address] Performed By: #### 5 7021-8 ####[facility] JACKSONLIA [id number] [place] [address] [place] Eosinophils (Bld) [#/Vol] 0.18 10*3/uL Normal <0.46 [facility] Comment on above: Order Comment: Speci men Type: BLOOD SPECIMENOrdering Facility: [facility] Address: [address] [place] [address] Performed By: #### 5 7021-8 ####[facility] RIVERNCLIA [id number] [place] [address] [place] Eosinophils/100 WBC (Bld) 2.8 % Normal [facility] Comment on above: Order Comment: Speci men Type: BLOOD SPECIMENOrdering Facility: [facility] Address: [address] [place] [address] Performed By: #### 5 7021-8 ####[facility] [id number] [place] [address] [place] Erythrocyte distribution width (RBC) [Ratio] 15.1 % High 11.5-15.0 [facility] Comment on above: Order Comment: Speci men Type: BLOOD SPECIMENOrdering Facility: [facility] Address: [address] [place] [address] Performed By: #### 5 7021-8 ####[facility] [id number] [place] [address] [place] Hematocrit (Bld) [Volume fraction] 38.9 % Normal 36.0-46.0 [facility] Comment on above: Order Comment: Speci men Type: BLOOD SPECIMENOrdering Facility: [facility] Address: [address] [place] [address] Performed By: #### 5 7021-8 ####[facility] [id number] [place] [address] [place] Hemoglobin (Bld) [Mass/Vol] 11.8 g/dL Normal 11.5-15.5 [facility] Comment on above: Order Comment: Speci men Type: BLOOD SPECIMENOrdering Facility: [facility] Address: [address] [place] [address] Performed By: #### 5 7021-8 ####[facility] [id number] [place] [address] [place] Immature granulocytes (Bld) [#/Vol] 10*3/uL Normal <0.10 [facility] Comment on above: Order Comment: Speci men Type: BLOOD SPECIMENOrdering Facility: [facility] Address: [address] [place] [address] Performed By: #### 5 7021-8 ####[facility] RIVERNCLIA [id number] [place] [address] [place] [facility] Immature granulocytes/100 WBC (Bld) 0.2 % Normal [facility] Comment on above: Order Comment: Speci men Type: BLOOD SPECIMENOrdering Facility: [facility] Address: [address] [place] [address] Performed By: #### 5 7021-8 ####[facility]IVERNCLI [id number] [place] [address] [place] Lymphocytes (Bld) [#/Vol] 1.43 10*3/uL Normal 1.00-4.00 [facility] Comment on above: Order Comment: Speci men Type: BLOOD SPECIMENOrdering Facility: [facility] Address: [address] [place] [address] Performed By: #### 5 7021-8 ####[facility] [id number] [place] [address] [place] Lymphocytes/100 WBC (Bld) 22.6 % Normal [facility] Comment on above: Order Comment: Speci men Type: BLOOD SPECIMENOrdering Facility: [facility] Address: [address] [place] [address] Performed By: #### 5 7021-8 ####[facility]SONL[facility] [id number] [place] [address] [place] MCH (RBC) [Entitic mass] 27.6 pg Normal 26.0-34.0 [facility] Comment on above: Order Comment: Speci men Type: BLOOD SPECIMENOrdering Facility: [facility] Address: [address] [place] [address] Performed By: #### 5 7021-8 ####[facility] [id number] [place] [address] [place] MCHC (RBC) [Mass/Vol] 30.3 g/dL Low 30.5-36.0 [facility] Comment on above: Order Comment: Speci men Type: BLOOD SPECIMENOrdering Facility: [facility] Address: [address] [place] [address] Performed By: #### 5 7021-8 ####[facility] [id number] [place] [address] [place] MCV (RBC) [Entitic vol] 91.1 fL Normal 80.0-100.0 [facility] Comment on above: Order Comment: Speci men Type: BLOOD SPECIMENOrdering Facility: [facility] Address: [address] [place] [address] Performed By: #### 5 7021-8 ####[facility] [id number] [place] [address] [place] Monocytes (Bld) [#/Vol] 0.67 10*3/uL Normal <0.87 [facility] Comment on above: Order Comment: Speci men Type: BLOOD SPECIMENOrdering Facility: [facility] Address: [address] [place] [address] Performed By: #### 5 7021-8 ####[facility] J[facility]SONLESLIEA [id number] [place] [address] [place] Monocytes/100 WBC (Bld) 10.6 % Normal [facility] Comment on above: Order Comment: Speci men Type: BLOOD SPECIMENOrdering Facility: [facility] Address: [address] [place] [address] Performed By: #### 5 7021-8 ####[facility]SONLIA [id number] [place] [address] [place] Neutrophils (Bld) [#/Vol] 3.97 10*3/uL Normal 1.45-7.50 [facility] Comment on above: Order Comment: Speci men Type: BLOOD SPECIMENOrdering Facility: [facility] Address: [address] [place] [address] Performed By: #### 5 7021-8 ####[facility] [id number] [place] [address] [place] Neutrophils/100 WBC (Bld) 62.9 % Normal [facility] Comment on above: Order Comment: Speci men Type: BLOOD SPECIMENOrdering Facility: [facility] Address: [address] [place] [address] Performed By: #### 5 7021-8 ####[facility] [id number] [place] [address] [place] Nucleated RBC (Bld) [#/Vol] 10*3/uL Normal <0.01 [facility] Comment on above: Order Comment: Speci men Type: BLOOD SPECIMENOrdering Facility: [facility] Address: [address] [place] [address] Performed By: #### 5 7021-8 ####[facility] [id number] [place] [address] [place] Nucleated RBC/100 WBC (Bld) [Ratio] 0.0 /[address] [facility] Comment on above: Order Comment: Speci men Type: BLOOD SPECIMENOrdering Facility: [facility] Address: [address] [place] [address] Performed By: #### 5 7021-8 ####[facility] [id number] [place] [address] [place] Platelet mean volume (Bld) [Entitic vol] 10.4 fL Normal 9.0-12.7 [facility] Comment on above: Order Comment: Speci men Type: BLOOD SPECIMENOrdering Facility: [facility] Address: [address] [place] [address] Performed By: #### 5 7021-8 ####[facility] FREDYWNCLIA [id number] [place] [address] [place] Platelets (Bld) [#/Vol] 257 10*3/uL Normal 150-400 [facility] Comment on above: Order Comment: Speci men Type: BLOOD SPECIMENOrdering Facility: [facility] Address: [address] [place], [place] [address] Performed By: #### 5 7021-8 ####[facility] RONPOMPEIINCLIA [id number] [place] [address] [place] [facility] RBC (Bld) [#/Vol] 4.27 10*6/uL Normal 3.90-5.20 [facility] Comment on above: Order Comment: Speci men Type: BLOOD SPECIMENOrdering Facility: [facility] Address: [address] [place] [address] Performed By: #### 5 7021-8 ####[facility] RIVERNCLIA [id number] [place] [address] [place] WBC (Bld) [#/Vol] 6.32 10*3/uL Normal 3.70-11.00 [facility] Comment on above: Order Comment: Speci men Type: BLOOD SPECIMENOrdering Facility: [facility] Address: [address] [place], [place] [address] Performed By: #### 5 7021-8 ####[facility]IVERNCLIA [id number] [place] [address] [facility] Comprehensive metabolic 2000 panelOrdered By: Vincenzo Simental on 02-03-2024 Albumin [Mass/Vol] 4.1 g/dL 3.9 - 4.9 g/dL [facility] ALP [Catalytic activity/Vol] 63 U/L 34 - 123 U/L [facility] ALT [Catalytic activity/Vol] 10 U/L 7 - 38 U/L [facility] Anion gap [Moles/Vol] 8 mmol/L 8 - 15 mmol/L [facility] AST [Catalytic activity/Vol] 12 U/L Low 13 - 35 U/L [facility] Bilirubin [Mass/Vol] 0.3 mg/dL 0.2 - 1 .3 mg/dL [facility] Calcium [Mass/Vol] 9.4 mg/dL 8.5 - 10. 2 mg/dL [facility] Chloride [Moles/Vol] 100 mmol/L 98 - 10 7 mmol/L [facility] CO2 [Moles/Vol] 30 mmol/L 22 - 30 mmol/L [facility] Creatinine [Mass/Vol] 0.33 mg/dL Low 0.58 - 0.96 mg/dL [facility] GFR/1.73 sq M.predicted among non-blacks MDRD (S/P/Bld) [Vol rate/Area] 119 mL/min/{1.73_m2} - PINF [facility] Comment on above: Estimated Glomerular Filtration Rate (eGFR) is calculated using the 2020 CKD-EPI creatinine equation. This equation utilizes serum creatinine, sex, and age as parameters. The creatinine assay has traceable calibration to isotope dilution-mass spectrometry. Refer to KDIGO guidelines for clinical interpretation. In patients with unstable renal function, e.g. those with acute kidney injury, the eGFR may not accurately reflect actual GFR. Glucose [Mass/Vol] 86 mg/dL 74 - 99 mg/dL [facility] Comment on above: The [place] Di[employer] s Association (ADA) provides guidance for cutoff values for fasting glucose and random glucose. The ADA defines fasting as no caloric intake for at least 8 hours. Fasting plasma glucose results between 100 to 125 mg/dL indicate increased risk for diabetes (prediabetes). Fasting plasma glucose results greater than or equal to 126 mg/dL meet the criteria for diagnosis of diabetes. In the absence of unequivocal hyperglycemia, results should be confirmed by repeat testing. In a patient with classic symptoms of hyperglycemia or hyperglycemic crisis, random plasma glucose results greater than or equal to 200 mg/dL meet the criteria for diagnosis of diabetes. Reference: Standards of Medical Care in Diabetes 2016, [place] [employer]. Diabetes Care. 2016.39(Suppl 1). Interpretation and review of laboratory results Abnormal [facility] Potassium [Moles/Vol] 4.0 mmol/L 3.7 - 5.1 mmol/L [facility] Protein [Mass/Vol] 7.0 g/dL 6.3 - 8.0 g/dL [facility] Sodium [Moles/Vol] 138 mmol/L 136 - 144 mmol/L [facility] Urea nitrogen [Mass/Vol] 19 mg/dL 7 - 21 mg/dL [facility] Comprehensive metabolic 2000 panelon 02-03-2024 Albumin [Mass/Vol] 4.1 g/dL Normal 3.9-4.9 [facility] Comment on above: Order Comment: Speci men Type: BLOOD SPECIMENOrdering Facility: [facility] Address: [address] [place] [address] Performed By: #### 2 4323-8 ####[facility] MILLTOWBRANNONLIA [id number] [place] [address] [place] ALP [Catalytic activity/Vol] 63 U/L Normal 34-123 [facility] Comment on above: Order Comment: Speci men Type: BLOOD SPECIMENOrdering Facility: [facility] Address: [address] [place] [address] Performed By: #### 2 4323-8 ####[facility] MILLAUTUMNWBRANNONLIA [id number] [place] [address] [place] ALT [Catalytic activity/Vol] 10 U/L Normal 7-38 [facility] Comment on above: Order Comment: Speci men Type: BLOOD SPECIMENOrdering Facility: [facility] Address: [address] [place] [address] Performed By: #### 2 4323-8 ####[facility] MILLTOWNCLIA [id number] [place] [address] [place] Anion gap [Moles/Vol] 8 mmol/L Normal 8-15 [facility] Comment on above: Order Comment: Speci men Type: BLOOD SPECIMENOrdering Facility: [facility] Address: [facility] [place] [address] Performed By: #### 2 4323-8 ####[facility] WATERMANWNCLIA [id number] [place] [address] [place] AST [Catalytic activity/Vol] 12 U/L Low 13-35 [facility] Comment on above: Order Comment: Speci men Type: BLOOD SPECIMENOrdering Facility: [facility] Address: [address] [place] [address] Performed By: #### 2 4323-8 ####[facility] ERWAZLIA [id number] [place] [address] [place] Bilirubin [Mass/Vol] 0.3 mg/dL Normal 0.2-1.3 [facility] Comment on above: Order Comment: Speci men Type: BLOOD SPECIMENOrdering Facility: [facility] Address: [address] [place] [address] Performed By: #### 2 4323-8 ####[facility] JACKSONLIA [id number] [place] [address] [place] Calcium [Mass/Vol] 9.4 mg/dL Normal 8.5-10.2 [facility] Comment on above: Order Comment: Speci men Type: BLOOD SPECIMENOrdering Facility: [facility] Address: [address] [place] [address] Performed By: #### 2 4323-8 ####[facility] J[facility]SONL[facility] [id number] [place] [address] [place] Chloride [Moles/Vol] 100 mmol/L Normal 98-107 [facility] Comment on above: Order Comment: Speci men Type: BLOOD SPECIMENOrdering Facility: [facility] Address: [address] [place] [address] Performed By: #### 2 4323-8 ####[facility] ERWNCLIA [id number] [place] [address] [place] CO2 [Moles/Vol] 30 mmol/L Normal 22-30 [facility] Comment on above: Order Comment: Speci men Type: BLOOD SPECIMENOrdering Facility: [facility] Address: [address] [place] [address] Performed By: #### 2 4323-8 ####[facility] RONPOMPEIINCLESLIE [id number] [place] [address] [place] Creatinine [Mass/Vol] 0.33 mg/dL Low 0.58-0.96 [facility] Comment on above: Order Comment: Speci men Type: BLOOD SPECIMENOrdering Facility: [facility] Address: [address] [place] [address] Performed By: #### 2 4323-8 ####[facility] [id number] [place] [address] [place] Creatinine and Glomerular filtration rate.predicted panel (S/P/Bld) 119 mL/min/1.73m??? Normal >=60 [facility] Comment on above: Order Comment: Speci men Type: BLOOD SPECIMENOrdering Facility: [facility] Address: [address] [place] [address] Result Comment: Yon mated Glomerular Filtration Rate (eGFR) is calculated using the 2020 CKD-EPI creatinine equation. This equation utilizes serum creatinine, sex, and age as parameters. The creatinine assay has traceable calibration to isotope dilution-mass spectrometry. Refer to KDIGO guidelines for clinical interpretation. In patients with unstable renal function, e.g. those with acute kidney injury, the eGFR may not accurately reflect actual GFR. Performed By: #### 2 4323-8 ####[facility] [id number] [place] [address] [place] Glucose [Mass/Vol] 86 mg/dL Normal 74-99 [facility] Comment on above: Order Comment: Speci men Type: BLOOD SPECIMENOrdering Facility: [facility] Address: [address] [place] [address] Result Comment: The [place] Diabetes Association (ADA) provides guidance for cutoff values for fasting glucose and random glucose. The ADA defines fasting as no caloric intake for at least 8 hours. Fasting plasma glucose results between 100 to 125 mg/dL indicate increased risk for diabetes (prediabetes).Fasting plasma glucose results greater than or equal to 126 mg/dL meet the criteria for diagnosis of diabetes. In the absence of unequivocal hyperglycemia, results should be confirmed by repeat testing. In a patient with classic symptoms of hyperglycemia or hyperglycemic crisis, random plasma glucose results greater than or equal to 200 mg/dL meet the criteria for diagnosis of diabetes.Reference: Standards of Medical Care in Diabetes 2016, [place] Diabetes Association. Diabetes Care. 2016.39(Suppl 1). Performed By: #### 2 4323-8 ####[facility] MILLTOWNCLIA [id number] [place] [address] [place] Potassium [Moles/Vol] 4.0 mmol/L Normal 3.7-5.1 [facility] Comment on above: Order Comment: Speci men Type: BLOOD SPECIMENOrdering Facility: [facility] Address: [address] [place] [address] Performed By: #### 2 4323-8 ####[facility] ERWNCLIA [id number] [place] [address] [place] Protein [Mass/Vol] 7.0 g/dL Normal 6.3-8.0 [facility] Comment on above: Order Comment: Speci men Type: BLOOD SPECIMENOrdering Facility: [facility] Address: [address] [place] [address] Performed By: #### 2 4323-8 ####[facility] MILLTOWNCLIA [id number] [place] [id number] [place] Sodium [Moles/Vol] 138 mmol/L Normal 136-144 [facility] Comment on above: Order Comment: Speci men Type: BLOOD SPECIMENOrdering Facility: [facility] Address: [address] [place] [address] Performed By: #### 2 4323-8 ####[facility] MILLTOWNCLIA [id number] [place] [address] [place] Urea nitrogen [Mass/Vol] 19 mg/dL Normal 7-21 [facility] Comment on above: Order Comment: Speci men Type: BLOOD SPECIMENOrdering Facility: [facility] Address: [address] [place] [address] Performed By: #### 2 4323-8 ####[facility]SON[facility] [id number] [place] [address] [place] CNOVon 01-25-[address] [facility] Basic metabolic 2000 panelon 01-20-2024 Anion gap [Moles/Vol] 7 mmol/L Low 8-15 [facility] Comment on above: Order Comment: Speci men Type: BLOOD SPECIMENOrdering Facility: [facility] Address: [address] [place] [address] Performed By: #### 2 4321-2 ####[facility] [id number] [place] [address] [place] Calcium [Mass/Vol] 8.6 mg/dL Normal 8.5-10.2 [facility] Comment on above: Order Comment: Speci men Type: BLOOD SPECIMENOrdering Facility: [facility] Address: [address] [place] [address] Performed By: #### 2 4321-2 ####[facility] [id number] [place] [address] [place] Chloride [Moles/Vol] 103 mmol/L Normal 98-107 [facility] Comment on above: Order Comment: Speci men Type: BLOOD SPECIMENOrdering Facility: [facility] Address: [address] [place] [address] Performed By: #### 2 4321-2 ####[facility] [id number] [place] [address] [place] CO2 [Moles/Vol] 29 mmol/L Normal 22-30 [facility] Comment on above: Order Comment: Speci men Type: BLOOD SPECIMENOrdering Facility: [facility] Address: [address] [place] [address] Performed By: #### 2 4321-2 ####[facility] [id number] [place] [address] [place] Creatinine [Mass/Vol] 0.33 mg/dL Low 0.58-0.96 [facility] Comment on above: Order Comment: Speci men Type: BLOOD SPECIMENOrdering Facility: [facility] Address: [address] [place] [address] Performed By: #### 2 4321-2 ####[facility] [id number] [address] OF [facility] Creatinine and Glomerular filtration rate.predicted panel (S/P/Bld) 119 mL/min/1.73m??? Normal >=60 [facility] Comment on above: Order Comment: Speci men Type: BLOOD SPECIMENOrdering Facility: [facility] Address: [address] [place] [address] Result Comment: Yon mated Glomerular Filtration Rate (eGFR) is calculated using the 2020 CKD-EPI creatinine equation. This equation utilizes serum creatinine, sex, and age as parameters. The creatinine assay has traceable calibration to isotope dilution-mass spectrometry. Refer to KDIGO guidelines for clinical interpretation. In patients with unstable renal function, e.g. those with acute kidney injury, the eGFR may not accurately reflect actual GFR. Performed By: #### 2 4321-2 ####[facility] [id number] [place] [address] [place] Glucose [Mass/Vol] 104 mg/dL High 74-99 [facility] Comment on above: Order Comment: Speci men Type: BLOOD SPECIMENOrdering Facility: [facility] Address: [address] [place] [address] Result Comment: The [place] Diabetes Association (ADA) provides guidance for cutoff values for fasting glucose and random glucose. The ADA defines fasting as no caloric intake for at least 8 hours. Fasting plasma glucose results between 100 to 125 mg/dL indicate increased risk for diabetes (prediabetes).Fasting plasma glucose results greater than or equal to 126 mg/dL meet the criteria for diagnosis of diabetes. In the absence of unequivocal hyperglycemia, results should be confirmed by repeat testing. In a patient with classic symptoms of hyperglycemia or hyperglycemic crisis, random plasma glucose results greater than or equal to 200 mg/dL meet the criteria for diagnosis of diabetes.Reference: Standards of Medical Care in Diabetes 2016, [place] Diabetes Association. Diabetes Care. 2016.39(Suppl 1). Performed By: #### 2 4321-2 ####[facility] [id number] [place] [address] [place] Potassium [Moles/Vol] 4.9 mmol/L Normal 3.7-5.1 [facility] Comment on above: Order Comment: Speci men Type: BLOOD SPECIMENOrdering Facility: [facility] Address: [address] [place] [address] Performed By: #### 2 4321-2 ####[facility] [id number] [place] [address] [place] Sodium [Moles/Vol] 139 mmol/L Normal 136-144 [facility] Comment on above: Order Comment: Speci men Type: BLOOD SPECIMENOrdering Facility: [facility] Address: [address] [place] [id number] Performed By: #### 2 4321-2 ####[facility] [id number] [place] [address] [place] Urea nitrogen [Mass/Vol] 11 mg/dL Normal 7-21 [facility] Comment on above: Order Comment: Speci men Type: BLOOD SPECIMENOrdering Facility: [facility] Address: [address] [place] [address] Performed By: #### 2 4321-2 ####[facility] MANOJ DANIELWNCLIA [id number] [place] [address] [place] CNOVSPon 01-16-[address] [facility] CNOVon 11-30-2023 CNOV Office Visit (ORFWHP ) ----- TENNILLE ORTIZ Selina ([id number]) 1965 F Date Time Provider Department 11/30/23 1:40 PM ATUL MCKEON ORFWHP During your visit today, we recorded the following information about you: Weight Height 43.5 kg 1.575 m Atul Mckeon DO 11/30/2023 2:09 PM Signed [facility] Office Visit Documentation Note [facility] Sports Medicine [facility]opa[facility] Rheumat[facility] [place] HISTORY OF PRESENT ILLNESS (HPI) CHIEF COMPLAINT / REASON FOR VISIT SERVICE DATE: November 30, 2023 PCP: Evan De MD Tennille Ortiz is here today at request of Dr.Sarah Snow specifically for consultation of my opinion in regards to the chief complaint listed below. Correspondence will be shared today via the [employer] electronic health record or through regular mail, where applicable. Tennille Ortiz is a 58 year old female who presents today for a new evaluation of following complaint: Patient presents with: Right Shoulder - New HISTORY OF PRESENT ILLNESS (HPI) PAIN EVALUATION 11/28/20232 Pain Location: Shoulder-Right Description: Aching;Sharp;Throbbing Duration Amount of Time: 24 Duration Units: Hours Frequency: Continuous Intervention/Comfort measure: Medication;Reposition Comments: I can barely I'm use arm due to the amount of f pain with the presenting complaint of New of the Right Shoulder Brief overview: Patient states that she has had right shoulder pain since April 2023.Patient states she got her blood drawn in her bicep and has had pain since. Aggravating Factors Does anything make it worse?: movement, applying pressure She is currently taking prednisone. Most recent shoulder imaging was completed on 11/29/2023 (XR SHOULDER [id number] AP/TRUE AP RIGHT) . PREVIOUS TREATMENTS: Treatments so far have included medication (Ibuprofen, Tizanidine), injection (steroid injection to the right bicep), and the assistive use of a sling. REVIEW OF SYSTEMS ROS: Neurologic: Any numbness or tingling? No Endocrine: Any diagnosis of diabetes? No ALLERGIES ALLERGIES Allergen Reactions Fortaz [Ceftazidime] Hives Hives, itching, peeling, Aspirin capillaries break Betadine [Povidone-* Itching Clindamycin Other: See Comments Skin peel, red rash, weight gain, swelling in the face and legs. Itchy. Doxycycline Shortness of Breath, Myalgia Erythromycin Base diarrhea Penicillins Hives Tolerated zosyn 02/09 PAST MEDICAL HISTORY 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 Vitamin D deficiency PHYSICAL EXAMINATION Body Habitus: well nourished, no acute distress, and alert and oriented Psych: normal Sensation: sensation to light touch is grossly normal bilaterally Skin: Color, texture, turgor normal. No rashes or lesions Swelling: no swelling noted Gait: Wheelchair ORTHO EXAM: Ortho Exam Pleasant and mildly cachectic appearing individual who comes in a wheelchair today. Unfortunately she has significant loss of range of motion of forward flexion abduction and rotation of the shoulder both internal and external. She has significant atrophy. IMAGING/LABORATORY IMAGING: Final results and radiologist's interpretation, available in the [facility] health record. Images were reviewed with the patient/family members in the office today. My personal interpretation of the performed imaging is chronic degenerative changes. Last XR Shoulder - Impression Only XR SHOULDER GENERAL 3V OR MORE AP/TRUE AP/OTHER RIGHT Exam End: 11/29/2023 11:24 AM (In process) ASSESSMENT / PLAN CLINICAL IMPRESSION / ASSESSMENT: CLINICAL IMPRESSION / ASSESSMENT: (M75.21) Biceps tendonitis on right RECOMMENDATION / PLAN: Summary pleasant 58-year-old female who has significant degenerative changes of the shoulder likely remote avascular necrosis now significant and severe glenohumeral arthritis with significant degenerative joint pain in the right humerus. Understanding that this has all stemmed from an incident in April, she still has symptoms consistent with osteoarthritis. We talked her about shoulder replacement and 90-day window between injection and replacement, she would like to consider something for pain relief now and has requested a glenohumeral joint injection today. Follow up: if symptoms persist or worsen Films prior to visit: No additional imaging warranted. Written instructions (see patient instructions) and verbal health education given to patient. Patient verbalizes understanding and agrees with the treatment plan. Atul Mckeon D.O. [facility] [place] Direct (more content not included)... Normal [facility] Large Joint Arthro/Inj: R sh oulder jointon 11-30-2023 Atul Mckeon DO 11/30/2023 2:09 PM Large Joint Arthro/Inj: R shoulder joint Informed Consent Consent Obtained: Verbal [place] Protocol A moment to CARE was completed. SIGN IN Personnel directly involved with the procedure wore the appropriate PPE. Patient/Surrogate Stated/Verified: Patient name, Date of , Relevant allergies and Intended procedure TIME OUT Intended patient and procedure match the source document(s). Consent documented and matches the intended procedure. Relevant labs, photos, and/or imaging studies have been reviewed. Correct side/site marked and visible. Medications required for procedure verified. Fire risk assessed and interventions discussed. 11/30/2023 2:09 PM The procedure site was prepped in the usual sterile fashion. Site: R shoulder joint Details:Musculoskeletal ultrasound was utilized to successfully localize placement of the injection needle at the appropriate site. Ultrasound images demonstrating local vasculature and demonstrating injection of solution were saved. Medications: 6 mg betamethasone acetate-betamethasone sodium phosphate 6 mg/mL Anesthetics: 4 mL lidocaine (PF) 10 mg/mL (1 %) Outcome: Tolerated well, no immediate complications Post-injection instructions were reviewed with the patient and the patient voiced understanding of these instructions. SIGN OUT All specimen containers correctly labeled. Post-procedure follow-up management communicated and Plan of Care Visit completed when applicable [facility] US Shoulder - righton 2023 [facility] Radiology Study observation (narrative) [facility] CT CHEST WO IVCONon 11-29-19 CT CHEST WO IVCON Normal [facility] XR SHLDR >/=3V AP/DANNI AP/OTH R RTon 11-29-2023 XR SHLDR >/=3V AP/DANNI AP/OTHR RT Normal [facility] POINT OF CARE ULTRASOUND NO CHARGEon 11-16-2023 POINT OF CARE ULTRASOUND NO CHARGE These images are not reportable by radiology and will not be interpreted by Radiologists. Normal [facility] US Abdomenon 11-16-2023 These images are not reportable by radiology and will not be interpreted by Radiologists. IMAGING CBC W Auto Differential pane l (Bld)on 10-21-2023 Basophils (Bld) [#/Vol] 0.03 10*3/uL <0.11 k/uL [facility] Basophils/100 WBC (Bld) 0.4 % [facility] Differential cell count method Nom (Bld) Auto [facility] Eosinophils (Bld) [#/Vol] 0.20 10*3/uL <0.46 k/uL [facility] Eosinophils/100 WBC (Bld) 2.8 % [facility] Erythrocyte distribution width (RBC) [Ratio] 15.3 % High 11.5 - 15.0 % [facility] Hematocrit (Bld) [Volume fraction] 37.5 % 36.0 - 46.0 % [facility] Hemoglobin (Bld) [Mass/Vol] 11.5 g/dL 11.5 - 15.5 g/dL [facility] Immature granulocytes (Bld) [#/Vol] <0.10 k/uL [facility] Immature granulocytes/100 WBC (Bld) 0.1 % [facility] Lymphocytes (Bld) [#/Vol] 1.43 10*3/uL 1.00 - 4.00 k/uL [facility] Lymphocytes/100 WBC (Bld) 19.8 % [facility] MCH (RBC) [Entitic mass] 28.6 pg 26.0 - 34.0 pg [facility] MCHC (RBC) [Mass/Vol] 30.7 g/dL 30.5 - 36.0 g/dL [facility] MCV (RBC) [Entitic vol] 93.3 fL 80.0 - 100.0 fL [facility] Monocytes (Bld) [#/Vol] 0.64 10*3/uL <0.87 k/uL [facility] Monocytes/100 WBC (Bld) 8.9 % [facility] Neutrophils (Bld) [#/Vol] 4.90 10*3/uL 1.45 - 7.50 k/uL [facility] Neutrophils/100 WBC (Bld) 68.0 % [facility] Nucleated RBC (Bld) [#/Vol] <0.01 k/uL [facility] Nucleated RBC/100 WBC (Bld) [Ratio] 0.0 /100 WBC [facility] Platelet mean volume (Bld) [Entitic vol] 10.5 fL 9.0 - 12.7 fL [facility] Platelets (Bld) [#/Vol] 195 10*3/uL 150 - 400 k/uL [facility] RBC (Bld) [#/Vol] 4.02 10*6/uL 3.90 - 5.2 0 m/uL [facility] WBC (Bld) [#/Vol] 7.21 10*3/uL 3.70 - 11.00 k/uL [facility] Comprehensive metabolic 2000 panelon 10-21-2023 Albumin [Mass/Vol] 3.7 g/dL Low 3.9 - 4.9 g/dL [facility] ALP [Catalytic activity/Vol] 62 U/L 34 - 123 U/L [facility] ALT [Catalytic activity/Vol] 7 U/L 7 - 38 U/L [facility] Anion gap [Moles/Vol] 10 mmol/L 9 - 18 mmol/L [facility] AST [Catalytic activity/Vol] 8 U/L Low 13 - 35 U/L [facility] Bilirubin [Mass/Vol] 0.4 mg/dL 0.2 - 1 .3 mg/dL [facility] Calcium [Mass/Vol] 9.3 mg/dL 8.5 - 10. 2 mg/dL [facility] Chloride [Moles/Vol] 102 mmol/L 97 - 10 5 mmol/L [facility] CO2 [Moles/Vol] 26 mmol/L 22 - 30 mmol/L [facility] Creatinine [Mass/Vol] 0.31 mg/dL Low 0.58 - 0.96 mg/dL [facility] Estimated Glomerular Filtration Rate 121 mL/min/1.73m >=60 mL/min/1.73 m [facility] Glucose [Mass/Vol] 74 mg/dL 74 - 99 mg/dL [facility] Potassium [Moles/Vol] 4.1 mmol/L 3.7 - 5.1 mmol/L [facility] Protein [Mass/Vol] 7.0 g/dL 6.3 - 8.0 g/dL [facility] Sodium [Moles/Vol] 138 mmol/L 136 - 144 mmol/L [facility] Urea nitrogen [Mass/Vol] 14 mg/dL 7 - 21 mg/dL [facility] VITAMIN D 25 HYDROXYon 10-20 25-hydroxyvitamin D3 [Mass/Vol] 47.5 ng/mL 31.0 - 80.0 ng/mL [facility] US UPPER EXTREMITY VENO US DUPLEX LEFTon 09-08-2023 [facility] US UPPER EXTREMITY [place] [address] [phone], Vascular Lab Report [facility] US UPPER EXTREMITY VENOUS DUPLEX RIGHT Patient Name: TENNILLE Gray Physician: [id number] Karla Mast MD Study Date: 09/08/2023 Ordering Provider: [id number] GERALDO PHILIPPE MRN/PID: [id number] Fellow: Technologist: Rafita Biggs RVT Date of /Age: 6 1965 / 58 years Technologist 2: Gender: F Admission Status: Emergency Location Performed: [facility] Diagnosis/ICD: Pain in right arm-M79.601 CPT Codes: 25303 Peripheral venous duplex scan for DVT Limited Pertinent History: Right pain at wrist. CONCLUSIONS: Right Upper Venous: No evidence of acute deep vein thrombus visualized in the right upper extremity. There are chronic changes visualized in the proximal cephalic, mid cephalic and distal cephalic veins. Non-vascular structures noted proximal lateral arm measuring 0.6 x 0.5 x 0.3 cm and distal medial arm measuring 0.5 x 0.3 x 0.4 cm. Left Upper Venous: The subclavian vein demonstrates a normal spontaneous and phasic flow. Imaging & Doppler Findings: Right Compressible Thrombus Flow Internal Jugular Yes None Spontaneous/Phasic Subclavian Yes None Spontaneous/Phasic Subclavian Proximal Yes None Spontaneous/Phasic Subclavian Mid Yes None Spontaneous/Phasic Subclavian Distal Yes None Spontaneous/Phasic Axillary Yes None Spontaneous/Phasic Brachial Yes None Cephalic Partial Chronic Basilic Yes None Left Flow Subclavian Spontaneous/Phasic [id number] Karla Mast MD Final [facility] BI MAMMO BILATERAL SCREENING TOMOSYNTHESISon 08-15-2023 BI MAMMO BILATERAL SCREENING TOMOSYNTHESIS Interpreted By: Syd Caro, STUDY: BI MAMMO BILATERAL SCREENING TOMOSYNTHESIS; 08/15/2023 11:25 am ACCESSION NUMBER(S): [id number] ORDERING CLINICIAN: EVARISTO DU INDICATION: Screening. COMPARISON: None. FINDINGS: CC and MLO 2D digital mammograms and digital breast tomosynthesis images were obtained of the bilateral breasts. 3-D volume images were reconstructed in 4 views at an independent workstation as 1 mm slices through the breasts in both the CC and MLO projections. Density: There are areas of scattered fibroglandular tissue. The study is limited by difficulty with patient positioning. There is limited visualization of the posterior tissues of the left breast. No discrete mass or focal asymmetry is identified. No suspicious microcalcifications or foci of architectural distortion are seen. There has been no significant change. This study was interpreted with CAD. IMPRESSION: No mammographic evidence of malignancy. BI-RADS CATEGORY: BI-RADS Category: 1 Negative. Recommendation: Routine Screening Mammogram in 1 Year. Recommended Date: 1 Year. Laterality: Bilateral. MACRO: None Signed by: Syd Caro 08/16/2023 9:58 AM Dictation workstation: [id number] [facility] L Inj/Aspon 07-28-2023 Evelyn Murray APRN-DIESEL ENGINE MECHANIC 08/10/2023 8:49 PM L Inj/Asp (R biceps tendon sheath) on 07/28/2023 3:03 PM Indications: pain and joint swelling Details: 22 G needle, ultrasound-guided anterior approach Medications: 40 mg triamcinolone acetonide 40 mg/mL Outcome: tolerated well, no immediate complications We discussed risk and benefits of cortisone injection, patient wishes to proceed via verbal consent. Skin was prepped with Betadine, Vapocoolant spray and alcohol. Direct visualization using high-frequency linear probe of ultrasound was utilized to administer the injection of 40 mg Kenalog, 3 cc 1% lidocaine and 3 cc of bupivacaine, bandage applied and skin thouroughly cleansed prior to bandage to remove topical skin cleansers. Patient tolerated injection well lidocaine suppression. Images were saved under MRN number into the PACS system. Procedure, treatment alternatives, risks and benefits explained, specific risks discussed. Consent was given by the patient. Immediately prior to procedure a time out was called to verify the correct patient, procedure, equipment, technology support analyst and site/side marked as required. Patient was prepped and draped in the usual sterile fashion. [facility] Work Phone: [facility] Work Phone: XR SHOULDER RIGHT 2+ VIEWSon 07-05-2023 XR SHOULDER RIGHT 2+ VIEWS Interpreted By: Renato Smalls, STUDY: XR SHOULDER RIGHT 2+ VIEWS; ; 07/05/2023 12:13 pm INDICATION: Signs/Symptoms:right shoulder pain. COMPARISON: None. ACCESSION NUMBER(S): [id number] ORDERING CLINICIAN: EVAN DE FINDINGS: No acute fracture or dislocation. Moderate-severe degenerative changes of the glenohumeral and acromioclavicular joints. Acromiohumeral interval is maintained Imaged lung field is clear IMPRESSION: No evidence of acute fracture or dislocation. Moderate-severe osteoarthritis. Signed by: Renato Smalls 07/06/2023 10:16 PM Dictation workstation: [id number] [facility] Lipid 1996 panelon 3 Cholesterol [Mass/Vol] 285 mg/dL High 0 - 199 mg/dL [facility] Comment on above: Age Desirable Borderline High High 0-19 Y 0 - 169 170 - 199 >/= 200 20-24 Y 0 - 189 190 - 224 >/= 225 >24 Y 0 - 199 200 - 239 >/= 240 All ranges are based on fasting samples. Specific therapeutic targets will vary based on patient-specific cardiac risk. Pediatric guidelines reference:Pediatrics 2011, 128(S5).Adult guidelines reference: NCEP ATPIII Guidelines,ALEXANDER 2001, 258:2486-97 Venipuncture immediately after or during the administration of Metamizole may lead to falsely low results. Testing should be performed immediately prior to Metamizole dosing. Cholesterol in HDL [Mass/Vol] 54.0 mg/dL [facility] Comment on above: Age Very Low Low Normal High 0-19 Y < 35 < 40 40-45 ---- 20-24 Y ---- < 40 >45 ---- >24 Y ---- < 40 40-60 >60 Cholesterol in LDL [Mass/Vol] 207 mg/dL High NINF - 99 mg/dL [facility] Comment on above: Near Borderline AGE Desirable Optimal High High Very High 0-19 Y 0 - 109 --- 110-129 >/= 130 ---- 20-24 Y 0 - 119 --- 120-159 >/= 160 ---- >24 Y 0 - 99 100-129 130-159 160-189 >/=190 Cholesterol in VLDL [Mass/Vol] 24 mg/dL 0 - 40 mg/dL [facility] Cholesterol.total/Ch olesterol in HDL [Mass ratio] 5.3 {ratio} [facility] Comment on above: Ref Values Desirable < 3.4 High Risk > 5.0 Interpretation and review of laboratory results Abnormal [facility] Non HDL Cholesterol 231 mg/dL High 0 - 149 mg/dL [facility] Comment on above: Age Desirable Borderline High High Very High 0-19 Y 0 - 119 120 - 144 >/= 145 >/= 160 20-24 Y 0 - 149 150 - 189 >/= 190 ---- >24 Y 30 mg/dL above LDL Cholesterol goal Triglyceride [Mass/Vol] 120 mg/dL 0 - 149 mg/dL [facility] Comment on above: Age Desirable Borderline High High Very High 0 D-90 D 19 - 174 ---- ---- ---- 91 D- 9 Y 0 - 74 75 - 99 >/= 100 ---- 10-19 Y 0 - 89 90 - 129 >/= 130 ---- 20-24 Y 0 - 114 115 - 149 >/= 150 ---- >24 Y 0 - 149 150 - 199 200- 499 >/= 500 Venipuncture immediately after or during the administration of Metamizole may lead to falsely low results. Testing should be performed immediately prior to Metamizole dosing. [facility] NM BONE SPECTon 05-25-2023 [facility] Absolute lymphocyte countOrd ered By: Lukasz Munoz on 04-23-2023 Lymphocytes Auto (Unsp spec) [#/Vol] 0.65 10*3/uL 0.83-4.51 [facility] Basophil percentageOrdered B y: Lukasz Munoz on 04-23-2023 Basophils/100 WBC (Bld) 0.5 % 0-1 [facility] Bilirubin [Mass/Vol] 0.80 mg/dL 0.20-1.00 [facility] Comment on above: For patients on eltr ombopag therapy, use of Dimension [place] TBIL is not recommended. Chloride [Moles/Vol] 101 mmol/L 98-107 [facility] Eosinophils/100 WBC (Bld) 0.3 % 0-5 [facility] Glucose [Mass/Vol] 100 mg/dL 74-106 [facility] Comment on above: Fasting Glucose resu lt from 100 to 125 mg/dL suggests IMPAIRED HOMEOSTASIS per A.D.A. criteria. Neutrophils (Bld) [#/Vol] 10.2 10*3/uL 2.0-7.7 [facility] Neutrophils/100 WBC (Bld) 87.5 % 47-70 [facility] Potassium [Moles/Vol] 4.0 mmol/L 3.5-5.1 [facility] Protein [Mass/Vol] 7.3 g/dL 6.4-8.2 [facility] Sodium [Moles/Vol] 137 mmol/L 136-145 [facility] WBC (Bld) [#/Vol] 11.6 10*3/uL 4.4-11.0 [facility] Blood erythrocytes count (nu mber/volume)Ordered By: Lukasz Munoz on 04-23-2023 RBC (Bld) [#/Vol] 3.81 10*6/uL 4.2-5.4 [facility] Blood hemoglobin measurement (mass/volume)Ordered By: Lukasz Munoz on 04-23-2023 Hemoglobin (Bld) [Mass/Vol] 11.2 g/dL 12.0-15.0 [facility] Blood lymphocytes/100 leukoc ytesOrdered By: Lukasz Munoz on 04-23-2023 Lymphocytes/100 WBC (Bld) 5.6 % 19-41 [facility] Blood monocytes/100 leukocyt esOrdered By: Lukasz Munoz on 04-23-2023 Monocytes/100 WBC (Bld) 5.6 % 0-10 [facility] Blood platelet mean volumeOr dered By: Lukasz Munoz on 04-23-2023 Platelet mean volume (Bld) [Entitic vol] 10.9 fL 6.2-12.0 [facility] Determination of erythrocyte mean corpuscular volume (MCV)Ordered By: Lukasz Munoz on 04-23-2023 MCV (RBC) [Entitic vol] 94.2 fL 81-99 [facility] Hematocrit Auto (Bld) [Volum e fraction]Ordered By: Lukasz Munoz on 04-23-2023 Hematocrit (Bld) [Volume fraction] 35.9 % 37-47 [facility] Influenza virus A and B and SARS-CoV-2 (COVID-19) Ag panel - Upper respiratory specimOrdered By: Lukasz Munoz on 04-23-2023 SARS-CoV-2 & FLU Antigen (Rapid) Influenzae B [facility] Laboratory - Chemistry and C hemistry - challengeOrdered By: Lukasz Munoz on 04-23-2023 ALP [Catalytic activity/Vol] 77 U/L 45-117 [facility] ALT [Catalytic activity/Vol] 22 U/L 13-56 [facility] CO2 [Moles/Vol] 31.0 mmol/L 21.0-32.0 [facility] Globulin (S) [Mass/Vol] 4.2 g/dL 2.2-4.2 [facility] Urea nitrogen/Creatinine [Mass ratio] 31.6 mg/mg 10-20 [facility] Laboratory - Hematology and Cell countsOrdered By: Lukasz Munoz on 04-23-2023 Erythrocyte distribution width (RBC) [Entitic vol] 51.1 fL 35.1-43.9 [facility] Erythrocyte distribution width (RBC) [Ratio] 14.7 % 11.6-14.6 [facility] Immature granulocytes/100 WBC (Bld) 0.500 % 0.0-0.9 [facility] Comment on above: IG% - Immature Granu locytes (promyelocytes, myelocytes and metamyelocytes) > 1% indicates that a LEFT SHIFT is Present. MCH (RBC) [Entitic mass] 29.4 pg 27.0-32.0 [facility] Nucleated RBC/100 WBC (Bld) [Ratio] 0 % 0-5 [facility] MCHC Auto (RBC) [Mass/Vol]Or dered By: Lukasz Munoz on 04-23-2023 MCHC (RBC) [Mass/Vol] 31.2 g/dL 32-36 [facility] No Panel InformationOrdered By: Lukasz Munoz on 04-23-2023 Estimated GFR (MDRD) Amer 223 mL/min >60 [facility] Comment on above: GFR Calc Estimated GFR (MDRD) Non-Af Amer 184 mL/min >60 [facility] Comment on above: Non- GFR Calc Platelets bldOrdered By: Mala Munoz on 04-23-2023 Platelets (Bld) [#/Vol] 190 10*3/uL 150-450 [facility] Serum or plasma albumin shavon urement (mass/volume)Ordered By: Lukasz Munoz on 04-23-2023 Albumin [Mass/Vol] 3.1 g/dL 3.2-5.0 [facility] Serum or plasma albumin/glob ulin mass ratioOrdered By: Lukasz Munoz on 04-23-2023 Albumin/Globulin [Mass ratio] 0.7 {ratio} 0.9-2.4 [facility] Serum or plasma calcium shavon urement (mass/volume)Ordered By: Lukasz Munoz on 04-23-2023 Calcium [Mass/Vol] 8.9 mg/dL 8.5-10.1 [facility] Serum or plasma creatinine m easurement (mass/volume)Ordered By: uLkasz Munoz on 04-23-2023 Creatinine [Mass/Vol] 0.38 mg/dL 0.55-1.02 [facility] Comment on above: The validity of the calculated GFR & GFRAA in patients over 70 years has not been determined. Clinical correlation is essential. Serum or plasma urea nitroge n measurement (mass/volume)Ordered By: Lukasz Munoz on 04-23-2023 Urea nitrogen [Mass/Vol] 12 mg/dL 7-18 [facility] Thin prep Papanicolaou smear with manual screeningOrdered By: Lukasz Munoz on 04-23-2023 Thin prep Papanicolaou smear with manual screening 15 U/L 15-37 [facility] Thin prep Papanicolaou smear with manual screening 5 5-15 [facility] XR CHEST 2V FRONTAL/LATon [facility] PROCOLLAGEN TYPE 1on 023 Procollagen Type 1 47 ug/L [facility] C TELOPEPTIDE, BETAon 2022 Collagen crosslinked C-telopeptide [Mass/Vol] 277 pg/mL [facility] Comprehensive metabolic 2000 panelon 01-14-2023 Albumin [Mass/Vol] 4.1 g/dL 3.9 - 4.9 g/dL [facility] ALP [Catalytic activity/Vol] 72 U/L 34 - 123 U/L [facility] ALT [Catalytic activity/Vol] 17 U/L 7 - 38 U/L [facility] Anion gap [Moles/Vol] 13 mmol/L 9 - 18 mmol/L [facility] AST [Catalytic activity/Vol] 14 U/L 13 - 35 U/L [facility] Bilirubin [Mass/Vol] 0.3 mg/dL 0.2 - 1 .3 mg/dL [facility] Calcium [Mass/Vol] 9.9 mg/dL 8.5 - 10. 2 mg/dL [facility] Chloride [Moles/Vol] 98 mmol/L 97 - 10 5 mmol/L [facility] CO2 [Moles/Vol] 29 mmol/L 22 - 30 mmol/L [facility] Creatinine [Mass/Vol] 0.38 mg/dL Low 0.58 - 0.96 mg/dL [facility] Estimated Glomerular Filtration Rate 116 mL/min/1.73m >=60 mL/min/1.73 m [facility] Glucose [Mass/Vol] 96 mg/dL 74 - 99 mg/dL [facility] Potassium [Moles/Vol] 4.9 mmol/L 3.7 - 5.1 mmol/L [facility] Protein [Mass/Vol] 6.9 g/dL 6.3 - 8.0 g/dL [facility] Sodium [Moles/Vol] 140 mmol/L 136 - 144 mmol/L [facility] Urea nitrogen [Mass/Vol] 13 mg/dL 7 - 21 mg/dL [facility] PTH INTACT BLDon 01-14-2023 Parathyrin.intact [Mass/Vol] 29 pg/mL 15 - 65 pg/mL [facility] VITAMIN D 25 HYDROXYon 01-14 25-hydroxyvitamin D3 [Mass/Vol] 31.8 ng/mL 31.0 - 80.0 ng/mL [facility] MRI THORACIC SPINE WO IVCONo n 01-10-2023 MRI THORACIC SPINE WO IVCON * * *Final Report* * * DATE OF EXAM: Jan 10 2023 2:49PM MMM 0325 - MRI THORACIC SPINE WO IVCON / PROCEDURE REASON: Other fracture of unspecified thoracic vertebra, initial encounter for closed fr * * * * Physician Interpretation * * * * EXAMINATION: MRI THORACIC SPINE WO IVCON CLINICAL HISTORY: Other fracture of unspecified thoracic vertebra, initial encounter for closed fracture (HCC) TECHNIQUE: Routine thoracic spine MR protocol. MQ: [id number] COMPARISON: None. RESULT: Counting reference: Craniocervical and lumbosacral junctions. For the purposes of this report, Assume the first normal thoracic rib is at the T1 level. There are 12 rib-bearing thoracic vertebrae and 7 cervical vertebrae. There are only 4 lumbar-type vertebrae. Localizer images: Unremarkable. Alignment: Alignment is anatomic. Cord: The visualized cord is within normal limits of signal intensity and morphology. Bone marrow signal/fracture: No evidence of pathologic marrow infiltration. There is 70% chronic compression fracture of the T6 vertebra with minimal dorsal displacement the posterior wall. There is a less than 30% compression fracture of T4 due to a chronic superior endplate Schmorl's node. Thoracic paraspinal soft tissues: The paraspinal soft tissues are within normal limits. There a few prominent perineural cysts at the neural foramina of the mid and lower thoracic spine best seen on STIR (series 6 images 15 and 6). Canal and foramina: The thoracic canal and foramina are patent. IMPRESSION: Chronic benign 70% compression fracture of the T6 vertebra with mild dorsal displacement of the posterior-superior superior wall. Less than 30% benign compression fracture due to superior endplate Schmorl's node T4. No evidence of an acute compression fracture. No marrow signal abnormality. Anatomic Thoracic/Lumbar Variant: There are 7 cervical vertebrae and 12 rib-bearing thoracic vertebrae and only 4 lumbar-type vertebrae. Director Of Marketing Operations: [employer] Transcribe Date/Time: Jan 10 2023 3:30P Dictated by : ELDON GREENBERG MD This examination was interpreted and the report reviewed and electronically signed by: ELDON GREENBERG MD on Jan 10 2023 3:35PM EST [id number] [facility] XR THORACIC GENERAL 3V AP/LA T/SWIMMERSon 12-10-2022 [facility] MRI CERVICAL SPINE WO IVCONo n 12-09-2022 [facility] No Panel Informationon 11-08 LOWEST T-SCORE -4.1 [facility] Established Visit (Orthopaed ic Surgery)on 10-18-2022 Established Visit (Orthopaedic Surgery) Diagnoses/Problems Assessed Tendinitis of left rotator cuff (726.10) (M75.82) Patient Discussion/Summary Tylenol of Ibuprofen per package directions, topical Diclofenac up to 4x/daily. Encouraged to continue home exercises and stretching as tolerated. I reviewed adverse effects of repetitive shoulder injections with further wear down of existing cartilage. At today's visit, identified there are multiple providers involved in different aspects of her musculoskeletal care. At this time, I am recommending the patient to establish with one provider to address all concerns if possible. Since patient is currently seeking evaluation of neck and thoracic spine concerns, and shoulder symptoms are near baseline at this time. I am deferring cortisone injection today as she is anticipating other cortisone injections in the near future with other providers. Plan will be to follow-up here in approximately 3 months on as needed basis after multiple specialist consults coming up in the near future. She is in agreement with this plan of care. She is aware she can contact the office if she wishes to pursue formal PT at any time. This note was generated using [employer] software. It may contain errors in wording, punctuation or spelling. Provider Impressions Left shoulder pain, suspect rotator cuff tendinopathy, hx scleroderma Chief Complaint Pt is being seen today for FUV regarding her left shoulder. She had injection 07/22/22 History of Present Illness Agree with CC as documented per ROSSY. Tennille is a 57-year-old female here for follow-up visit left shoulder pain. Patient did get good relief with the last cortisone injection here approximately 3 months ago. Patient has been doing activities as tolerated including home exercises. Patient does use ibuprofen on a as needed basis as well as Tylenol for symptom control. Fall 04/2022- seeing ortho (Manoj and referred to [facility]), spinal specialist, neuro and pain mgmt for c spine degenerative condition. Patient continues with multiple social determinants of health that are affecting her health care. Review of Systems Constitutional: no fever, no chills and not feeling tired. ENT: no recent cough or URI sx, no nosebleeds. Cardiovascular: no chest pain. Respiratory: no shortness of breath and no cough. Gastrointestinal: no abdominal pain, no nausea, no vomiting and no diarrhea. Integumentary: no rashes or skin wounds. Neurological: no headache. Psychiatric: no depression and no sleep disturbances. Endocrine: no muscle weakness and no muscle cramps. Hematologic/Lymphatic: no swollen glands and no tendency for easy bruising. All other systems have been reviewed and are negative other than noted in HPI. 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) Hospital discharge follow-up (V67.59) (Z09) Hyperlipidemia (272.4) (E78.5) Hypothyroidism (244.9) (E03.9) ILD (interstitial lung disease) (515) (J84.9) Insomnia (780.52) (G47.00) Left knee pain (719.46) (M25.562) Left shoulder pain (719.41) (M25.512) Medicare annual wellness visit, subsequent (V70.0) (Z00.00) Nausea in adult (787.02) (R11.0) Osteoarthritis of right shoulder, unspecified osteoarthritis type (715.91) (M19.011) Osteoporosis (733.00) (M81.0) Pneumonia (486) (J18.9) 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) Preop examination (V72.84) (Z01.818) Raynauds disease (443.0) (I73.00) Restless leg syndrome (333.94) (G25.81) Right knee pain (719.46) (M25.561) Scleroderma (710.1) (M34.9) Shingles (053.9) (B02.9) Shortness of breath on exertion (786.05) (R06.02) Skin lesion of chest wall (709.9) (L98.9) Sore throat (462) (J02.9) Tendinitis of left rotator cuff (726.10) (M75.82) Thoracic back pain (724.1) (M54.6) Past Medical History Problems History of Hospital discharge follow-up (V67.59) (Z09) Resolved Date: 12 Mar 2021 Surgical History Problems History of Appendectomy History of Cystocele repair History of Finger amputation History of Hip replacement History of Hysterectomy vaginal History of Knee replacement 02/04/21 Right knee History of Tracheostomy History of Tubal ligation Family History Mother Family history of coronary artery disease (V17.3) (Z82.49) Father Family history of Cerebrovascular accident (CVA) due to other mechanism Family history of acute myocardial infarction (V17.3) (Z82.49) Daughter Family history o (more content not included)... Normal [employer] Tobacco Screening.on 023 Fall risk assessment b) One or more fall s in the last year [facility] 300 Work Phone: Tobacco use status [facility] b) No -[facility] 300 Work Phone: [place] 10-07-2022 [facility] ([facility]) ----- TENNILLE ORTIZ ([id number]) 1965 F Date Time Provider Department 10/07/22 DONNIE GRISSOM I [facility] During your visit today, we recorded the following information about you: Starr Gao RN 10/07/2022 9:49 AM Signed Called patient to remind her to bring CD to appt with her next week. She said she had everything ready but she might be going to [facility]. I let her know we will keep her appointment but if something changes to give us a call to cancel. Starr Gao RN Allergies As of Date: 10/07/2022 Noted Allergy Reaction FORTAZ (CEFTAZIDIME) 06/09/2010 4 - Hives Comments: Hives, itching, peeling, ASPIRIN 08/02/2003 Comments: capillaries break BETADINE (POVIDONE-IODINE) 04/19/2011 9 - Itching CLINDAMYCIN 04/19/2011 14 - Other: See Comments Comments: Skin peel, red rash, weight gain, swelling in the face and legs. Itchy. DOXYCYCLINE 09/11/2018 12 - Shortness of Breath 17 - Myalgia ERYTHROMYCIN BASE 08/02/2003 Comments: diarrhea PENICILLINS 08/02/2003 4 - Hives Comments: Tolerated zosyn 02/09 Date Reviewed: 02/24/2021 Reviewed by: Keerthi Negrete RN - Fully Assessed Reason for Visit: Patient Update [1234] Prescriptions as of 10/07/2022 - atorvastatin (LIPITOR) 40 mg tablet Take 1 tablet by mouth daily at bedtime. - gabapentin (NEURONTIN) 100 mg capsule Take 2 capsules by mouth three times daily for 30 days. - rOPINIRole (REQUIP) 0.25 mg tablet Take 1 tablet by mouth twice daily. - albuterol (PROVENTIL) 2.5 mg /3 mL (0.083 %) nebulizer solution Use 3 mL via nebulizer every 4 hours. - budesonide (PULMICORT) 0.5 mg/2 mL nebulizer solution Use 2 mL via nebulizer twice daily. - sodium chloride 7% solution 7 % nebu Inhale 4 mL as instructed twice daily. - albuterol (PROVENTIL) 2.5 mg /3 mL (0.083 %) nebulizer solution Use 3 mL via nebulizer every 4 hours. Inhale over 5-15 minutes - budesonide (PULMICORT) 0.5 mg/2 mL nebulizer solution Use 2 mL via nebulizer every 12 hours. Inhale over 5-15 minutes - sodium chloride 7% solution 7 % nebu Inhale 4 mL as instructed twice daily. - predniSONE (DELTASONE) 1 mg tablet Take 4 tablets by mouth once daily. NO REFILLS WITHOUT APPOINTMENT WITH DR MYA - Ibuprofen 200 mg cap Take 800 mg by mouth three times daily. - levothyroxine (SYNTHROID) 100 mcg tablet Take 1 tablet by mouth daily before breakfast. - traZODone (DESYREL) 50 mg tablet Take 1 tablet by mouth daily at bedtime. - tiZANidine (ZANAFLEX) 4 mg tablet Take 1 tablet by mouth once daily. - sertraline (ZOLOFT) 50 mg tablet Take 1 tablet by mouth daily at bedtime. - Yltlcaua-Oxpzwfe-Uepa-Lut ein (CENTRUM SILVER ULTRA WOMEN'S) Tab Take 1 tablet by mouth once daily. - Nebulizer and Compressor For Neb Bekah 1 Device as needed. Use as directed. - albuterol HFA (PROVENTIL HFA) 90 mcg/Actuation INHALATION inhaler Inhale 2 Puffs as instructed twice daily as needed (for shortness of breath and wheezing.). - ca carbonate/vitamin d3/vit k(VIACTIV 500 MG-100 UNIT-40 MCG CHEWABLE TAB) Take one(1) tablet two(2) times daily. 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] 11/17/2004 Class: Chronic DEGENERATIVE SKIN DISORD [L98.8] 05/10/2005 Unspecified hypothyroidism [E03.9] 08/03/2005 Class: Chronic Menstrual Disorder [N92.6, N93.9] 02/26/2010 DUB (dysfunctional uterine bleeding) [N93.8] Preop exam for internal medicine [Z01.818] Hypothyroidism [E03.9] Polymyositis (HCC) [M33.20] Raynaud's syndrome [I73.00] Restrictive lung disease, Acute Productive Coug* Class: Chronic Urine, incontinence, stress female [N39.3] 05/12/2010 Uterovaginal prolapse [N81.4] 05/12/2010 Sleep apnea [G47.30] 02/11/2011 Muscular deconditioning [R29.898] 09/13/2011 Disturbance of sleep - including restless leg s*04/17/2012 SUMMARY [V999.95] 03/07/2013 Adnexal mass [N94.89] 03/07/2013 Transaminitis [R74.01] 03/07/2013 02/24/2021 Restless leg syndrome [G25.81] 03/07/2013 Nausea [R11.0] 03/07/2013 Palpitations [R00.2] 03/08/2013 Healthcare maintenance [Z00.00] 08/22/2017 Ischemia of digits of hand [I99.8] 08/22/2017 Depression [F32.A] 08/24/2017 Exacerbation of asthma [J45.901] 08/26/2017 Acute liver failure [K72.00] 02/08/2021 02/24/2021 HARDIK (acute kidney injury) (HCC) [N17.9] 02/09/2021 02/24/2021 Acute on chronic respiratory failure with hypox*02/14/2021 02/24/2021 Hypercapnic respiratory failure (HCC) [J96.92] 02/23/2021 02/24/2021 Abnormal sputum [R09.3] 02/24/2021 Encounter Status:Closed by STARR GAO on 10/07/22 Normal [facility] BASIC METABOLIC PANELon 03-1 Anion gap [Moles/Vol] 10 mmol/L Normal 10 - 20 [facility] Comment on above: Performed By: #### B MP #### [address] [address] Calcium [Mass/Vol] 9.6 mg/dL Normal 8.6 - 10.3 [facility] Comment on above: Performed By: #### B MP #### [address] [address] Chloride [Moles/Vol] 99 mmol/L Normal 98 - 107 [facility] Comment on above: Performed By: #### B MP #### [address] [address] Creatinine [Mass/Vol] 0.37 mg/dL Low 0.50 - 1.05 [facility] Comment on above: Performed By: #### B MP #### [address] [address] eGFR FEMALE >90 Normal >90 [facility] Comment on above: Result Comment: CALC ULATIONS OF ESTIMATED GFR ARE PERFORMED USING THE 2020 CKD-EPI STUDY REFIT EQUATION WITHOUT THE RACE VARIABLE FOR THE IDMS-TRACEABLE CREATININE METHODS. https://jasn.asnjournals.org/content/early/ASN.0527895 988 Performed By: #### B MP #### [address] [address] Glucose [Mass/Vol] 121 mg/dL High 74 - 99 [facility] Comment on above: Performed By: #### B MP #### [address] [address] HCO3 (Bld) [Moles/Vol] 34 mmol/L High 21 - 32 [facility] Comment on above: Performed By: #### B MP #### [address] [address] Potassium [Moles/Vol] 4.3 mmol/L Normal 3.5 - 5.3 [facility] Comment on above: Performed By: #### B MP #### [address] [address] Sodium [Moles/Vol] 139 mmol/L Normal 136 - 145 [facility] Comment on above: Performed By: #### B MP #### [address] [address] Urea nitrogen [Mass/Vol] 13 mg/dL Normal 6 - 23 [facility] Comment on above: Performed By: #### B MP #### [address] [address] CBC AND DIFFERENTIALon 09-19 % AUTOMATED IMMATURE GRAN 0.2 % Normal 0.0 - 0.9 [facility] Comment on above: Result Comment: Deyanira ture Granulocyte Count (IG) includes promyelocytes, myelocytes and metamyelocytes but does not include bands. Percent differential counts (%) should be interpreted in the context of the absolute cell counts (cells/L). Performed By: #### C BCDF #### [address] [address] Basophils (Bld) [#/Vol] 0.05 10*3/uL Normal 0.00 - 0.10 [facility] Comment on above: Performed By: #### C BCDF #### [address] [address] Basophils/100 WBC (Bld) 0.6 % Normal 0.0 - 2.0 [facility] Comment on above: Performed By: #### C BCDF #### [address] [address] Eosinophils (Bld) [#/Vol] 0.04 10*3/uL Normal 0.00 - 0.70 [facility] Comment on above: Performed By: #### C BCDF #### [address] [address] Eosinophils/100 WBC (Bld) 0.5 % Normal 0.0 - 6.0 [facility] Comment on above: Performed By: #### C BCDF #### [address] [address] Erythrocyte distribution width (RBC) [Ratio] 14.8 % High 11.5 - 14.5 [facility] Comment on above: Performed By: #### C BCDF #### [address] [address] Hematocrit (Bld) [Volume fraction] 42.4 % Normal 36.0 - 46.0 [facility] Comment on above: Performed By: #### C BCDF #### [address] [address] Hemoglobin (Bld) [Mass/Vol] 13.0 g/dL Normal 12.0 - 16.0 [facility] Comment on above: Performed By: #### C BCDF #### [address] [address] Lymphocytes (Bld) [#/Vol] 0.46 10*3/uL Low 1.20 - 4.80 [facility] Comment on above: Performed By: #### C BCDF #### [address] [address] Lymphocytes/100 WBC (Bld) 5.4 % Normal 13.0 - 44.0 [facility] [facility] Comment on above: Performed By: #### C BCDF #### [address] [address] MCHC (RBC) [Mass/Vol] 30.7 g/dL Low 32.0 - 36.0 [facility] Comment on above: Performed By: #### C BCDF #### [address] [address] MCV (RBC) [Entitic vol] 98 fL Normal 80 - 100 [facility] Comment on above: Performed By: #### C BCDF #### [address] [address] Monocytes (Bld) [#/Vol] 0.31 10*3/uL Normal 0.10 - 1.00 [facility] Comment on above: Performed By: #### C BCDF #### [address] [address] Monocytes/100 WBC (Bld) 3.6 % Normal 2.0 - 10.0 [facility] Comment on above: Performed By: #### C BCDF #### [address] [address] Neutrophils (Bld) [#/Vol] 7.68 10*3/uL Normal 1.20 - 7.70 [facility] Comment on above: Result Comment: Perc ent differential counts (%) should be interpreted in the context of the absolute cell counts (cells/L). Performed By: #### C BCDF #### [address] [address] Neutrophils/100 WBC (Bld) 89.7 % Normal 40.0 - 80.0 [facility] Comment on above: Performed By: #### C BCDF #### [address] [address] Platelets (Bld) [#/Vol] 271 10*3/uL Normal 150 - 450 [facility] Comment on above: Performed By: #### C BCDF #### [address] [address] RBC 4.34 x10E12/L Normal 4.00 - 5.20 [facility] Comment on above: Performed By: #### C BCDF #### [address] [address] WBC (Bld) [#/Vol] 8.6 10*3/uL Normal 4.4 - 11.3 [facility] Comment on above: Performed By: #### C BCDF #### [address] [address] [address] Angio Head w/wo Include P ost Procon 09-19-2022 CT Head limited WO contrast Normal [facility] 300 Work Phone: CT Angio Neckon 09-19-2022 CTA Neck vessels W contrast IV Normal [facility] 300 Work Phone: CT C Spine without Contrasto n 09-19-2022 CT Cervical spine WO contrast Normal [facility] 300 Work Phone: CT C-SPINE WO CONTRASTon CT C-SPINE WO CONTRAST Patient Name: TENNILLE ORTIZ STUDY: CT C-SPINE WO CONTRAST; 09/19/2022 4:02 pm INDICATION: sharp head and neck pain, reconstitute off ct angio . COMPARISON: None. ACCESSION NUMBER(S): [id number] ORDERING CLINICIAN: HARMEET RICHARD TECHNIQUE: Axial CT images of the cervical spine are obtained. Axial, coronal and sagittal reconstructions are provided for review. FINDINGS: C3 has 3 mm anterolisthesis and C4. The C6-7 disc height is mildly decreased posteriorly. The remaining vertebral body and disc space heights are normal. The right C2-3 and left C3-4 facet joints are fused. Occipital atlas articulations have moderate to severe degenerative changes bilaterally especially on the left. The C1-2 facet joints have severe degenerative much worse on the right with degenerative cyst formations along the articular surfaces and narrowing of the joint spaces bilaterally. The right lateral mass is decreased in height chronically compared to the left. No acute fractures or subluxations are noted. The temporomandibular joints have severe arthritic changes bilaterally, worse on the right with subcortical cysts and multiple cortical erosions. C2-3: No stenosis is noted. C3-4: The spinal canal is mildly stenosed by disc bulge abutting the cord. C4-5: The spinal canal is mildly to moderately stenosed with central disc protrusion abutting and slightly indenting the cord. C5-6: Spinal canal is mildly stenosed by disc bulge. C5-6: No stenosis is noted. C7-T1: No stenosis is noted. IMPRESSION: 1. Severe degenerative changes are present at the craniocervical junction as noted with fusions of the right C2-3 and left C3 facet joints as well. 2. The temporomandibular joints have severe arthritic changes bilaterally. 3. No acute fractures or subluxations are noted. Electronically signed by: HALIE PINA MD [facility] Complete Blood Count + Diffe rentialon 09-19-2022 Basophils/100 WBC (Bld) 0.6 % 0.0 - 2.0 [facility] 300 Work Phone: Erythrocyte distribution width (RBC) [Ratio] 14.8 % above high threshold See Below [facility] 300 Work Phone: Comment on above: Reference Range: 11. 5 - 14.5 Hematocrit (Bld) [Volume fraction] 42.4 % See Below [facility] 300 Work Phone: Comment on above: Reference Range: 36. 0 - 46.0 Hemoglobin (Bld) [Mass/Vol] 13.0 g/dL See Below [facility] 300 Work Phone: Comment on above: Reference Range: 12. 0 - 16.0 Lymphocytes/100 WBC (Bld) 5.4 % See Below [facility] 300 Work Phone: Comment on above: Reference Range: 13. 0 - 44.0 MCHC (RBC) [Mass/Vol] 30.7 g/dL below low threshold See Below [facility] 300 Work Phone: Comment on above: Reference Range: 32. 0 - 36.0 MCV (RBC) [Entitic vol] 98 fL 80 - 100 [facility] 300 Work Phone: [phone] Monocytes/100 WBC (Bld) 3.6 % 2.0 - 10.0 [facility] 300 Work Phone: Neutrophils/100 WBC (Bld) 89.7 % See Below [facility] 300 Work Phone: Comment on above: Reference Range: 40. 0 - 80.0 Platelets (Bld) [#/Vol] 271 10*3/uL 150 - 450 [facility] 300 Work Phone: [phone] RBC (Bld) [#/Vol] 4.34 {x10E12/L} See Below [facility] 300 Work Phone: Comment on above: Reference Range: 4.0 0 - 5.20 WBC (Bld) [#/Vol] 8.6 10*3/uL 4.4 - 11.3 [facility] 300 Work Phone: Complete Blood Count + Differential 0.05 {x10E9/L} See Below [facility] 300 Work Phone: Comment on above: Reference Range: 0.0 0 - 0.10 Complete Blood Count + Differential 0.04 {x10E9/L} See Below [facility] 300 Work Phone: Comment on above: Reference Range: 0.0 0 - 0.70 Complete Blood Count + Differential 0.31 {x10E9/L} See Below [facility] 300 Work Phone: Comment on above: Reference Range: 0.1 0 - 1.00 Complete Blood Count + Differential 0.46 {x10E9/L} below low threshold See Below [facility] 300 Work Phone: Comment on above: Reference Range: 1.2 0 - 4.80 Complete Blood Count + Differential 7.68 {x10E9/L} See Below [facility] 300 Work Phone: Comment on above: Reference Range: 1.2 0 - 7.70 Percent differential counts (%) should be interpreted in the context of the absolute cell counts (cells/L). Complete Blood Count + Differential 0.5 % 0.0 - 6.0 [facility] 300 Work Phone: Complete Blood Count + Differential 0.2 % 0.0 - 0.9 [facility] 300 Work Phone: Comment on above: Immature Granulocyte Count (IG) includes promyelocytes, myelocytes and metamyelocytes but does not include bands. Percent differential counts (%) should be interpreted in the context of the absolute cell counts (cells/L). Laboratory - Chemistry and C hemistry - challengeon 09-19-2022 Anion gap [Moles/Vol] 10 mmol/L 10 - 20 [facility] 300 Work Phone: Calcium [Mass/Vol] 9.6 mg/dL 8.6 - 10.3 [facility] 300 Work Phone: Chloride [Moles/Vol] 99 mmol/L 98 - 107 [facility] 300 Work Phone: CO2 [Moles/Vol] 34 mmol/L above high threshold 21 - 32 [facility] 300 Work Phone: Creatinine [Mass/Vol] 0.37 mg/dL below low threshold See Below [facility] 300 Work Phone: Comment on above: Reference Range: 0.5 0 - 1.05 Glucose [Mass/Vol] 121 mg/dL above high threshold 74 - 99 [facility] 300 Work Phone: Potassium [Moles/Vol] 4.3 mmol/L 3.5 - 5.3 [facility] 300 Work Phone: Sodium [Moles/Vol] 139 mmol/L 136 - 145 [facility] 300 Work Phone: Urea nitrogen [Mass/Vol] 13 mg/dL 6 - 23 [facility] 300 Work Phone: NR CT ANGIO HEAD W/O-W INCLU DE POST PROCon 09-19-[address] ANGIO HEAD W/O-W INCLUDE POST PROC Patient Name: TENNILLE ORTIZ STUDY: CT ANGIO HEAD W/O-W INCLUDE POST PROC; CT ANGIO NECK; 09/19/2022 4:02 pm INDICATION: sharp head and neck pain. Fell April 2022, pain since then when turning head worse on right. COMPARISON: 08/18/[address] ACCESSION NUMBER(S): [id number]; [id number] ORDERING CLINICIAN: HARMEET RICHARD TECHNIQUE: Unenhanced CT images of the head were obtained. 76 mL Omnipaque 350 were administered intravenously and axial images of the head and neck were acquired. Coronal, sagittal, and 3-D reconstructions were provided for review. Carotid stenoses were determined using modified NASCET criteria. FINDINGS: Head CT: The ventricles and sulci are normal, unchanged. No acute infarct, hemorrhage or mass is noted. The brain parenchyma enhances normally. The facial soft tissues are focally thinned/scarred anteriorly on the left superior to the lips. CTA HEAD FINDINGS: Anterior circulation: The right internal carotid siphon has focal atherosclerotic calcification without significant stenosis. No stenoses of the anterior middle cerebral arteries are noted. Posterior circulation: Bilateral intracranial vertebral arteries, vertebrobasilar junction, basilar artery and proximal posterior cerebral arteries are normal. CTA NECK FINDINGS: Right carotid vessels: The common carotid artery is normal. The carotid bifurcation is normal. The internal carotid artery in the neck is normal. There is 0% stenosis . Left carotid vessels: The common carotid artery is normal. The carotid bifurcation is normal. The internal carotid artery in the neck is normal. There is 0% stenosis . Vertebral vessels: The visualized segments of the cervical vertebral arteries are normal in caliber. The right lung apex has a collection of less than 1 cm cysts anteriorly and medially along the pleura. IMPRESSION: No evidence for significant stenosis of the cervical vessels. No evidence for significant stenosis or large branch vessel cutoffs of the intracranial vessels. Electronically signed by: HALIE PINA MD [facility] NR CT ANGIO NECKon [address] ANGIO NECK Patient Name: TENNILLE ORTIZ STUDY: CT ANGIO HEAD W/O-W INCLUDE POST PROC; CT ANGIO NECK; 09/19/2022 4:02 pm INDICATION: sharp head and neck pain. Fell April 2022, pain since then when turning head worse on right. COMPARISON: 08/18/[address] ACCESSION NUMBER(S): [id number]; [id number] ORDERING CLINICIAN: HARMEET RICHARD TECHNIQUE: Unenhanced CT images of the head were obtained. 76 mL Omnipaque 350 were administered intravenously and axial images of the head and neck were acquired. Coronal, sagittal, and 3-D reconstructions were provided for review. Carotid stenoses were determined using modified NASCET criteria. FINDINGS: Head CT: The ventricles and sulci are normal, unchanged. No acute infarct, hemorrhage or mass is noted. The brain parenchyma enhances normally. The facial soft tissues are focally thinned/scarred anteriorly on the left superior to the lips. CTA HEAD FINDINGS: Anterior circulation: The right internal carotid siphon has focal atherosclerotic calcification without significant stenosis. No stenoses of the anterior middle cerebral arteries are noted. Posterior circulation: Bilateral intracranial vertebral arteries, vertebrobasilar junction, basilar artery and proximal posterior cerebral arteries are normal. CTA NECK FINDINGS: Right carotid vessels: The common carotid artery is normal. The carotid bifurcation is normal. The internal carotid artery in the neck is normal. There is 0% stenosis . Left carotid vessels: The common carotid artery is normal. The carotid bifurcation is normal. The internal carotid artery in the neck is normal. There is 0% stenosis . Vertebral vessels: The visualized segments of the cervical vertebral arteries are normal in caliber. The right lung apex has a collection of less than 1 cm cysts anteriorly and medially along the pleura. IMPRESSION: No evidence for significant stenosis of the cervical vessels. No evidence for significant stenosis or large branch vessel cutoffs of the intracranial vessels. Electronically signed by: HALIE PINA MD [facility] No Panel Informationon 09-19 >90 >90 [facility] 300 Work Phone: Comment on above: CALCULATIONS OF YON MATED GFR ARE PERFORMED USING THE 2020 CKD-EPI STUDY REFIT EQUATION WITHOUT THE RACE VARIABLE FOR THE IDMS-TRACEABLE CREATININE METHODS.https://jasn.asnjournals.org/content/early//ASN .[email or web address] Provider Note - ED v3on 09-01 Provider Note - ED v3 Provider Note: Chart Review: ED NOTES ED NOTES: ====HPI==== Patient is a 57-year-old female who presents to the emergency department with head and neck pain. States that she has had a head and neck pain for the past 8 months. She states that back in April she fell and had fractured 2 thoracic vertebrae and also a rib. She states that since the fall she has had issues with her neck that are becoming more frequent. She states that when she turns her head to a certain side she gets a sharp bandlike sensation that shoots to her head. She states that it was happening occasionally but recently it happens anytime she turns her head. She states that the pain becomes so significant that she will cry at times. She denies any nausea or vomiting. No fever or chills. Known chest pain or shortness of breath. She denies any new injury. PMHX: Scleroderma, polymyositis, hypothyroidsim, per lipidemia, hypotension, dizziness, anemia Social HX: Never smoker TOBACCO Denies ETOH Denies DRUGS ====Review of Systems==== 10 point system review is negative except for those specifically mentioned in history of present illness ====Physical Exam==== Constitutional/General: Alert and oriented x3, well appearing, nontoxic, and in NAD. Head: Normocephalic and atraumatic. Eyes: PERRL, EOMI, conjunctive normal, sclera nonicteric, subconjunctival layer is pink. Mouth: Oropharynx clear, handling secretions, no trismus, no asymmetry of the posterior oropharynx or uvular edema Neck: Supple, full ROM, tender to palpation in the midline, Pain with ROM. no stridor, no crepitus, no meningeal signs. Trachea at midline. Respiratory: Lungs clear to auscultation bilaterally, no wheezes, rales, or rhonchi, not in respiratory distress. Cardiovascular: Regular rate, regular rhythm, no murmurs, gallops, or rubs, 2+ distal pulses. Chest: normal chest wall movement GI: Abdomen soft, nontender, nondistended, , no organomegaly, no palpable masses, no rebound, guarding, or rigidity. Musculoskeletal: Moves all extremities x4, warm and well perfused, no clubbing, cyanosis, or edema, cap refill <3 seconds Integument: Skin warm and dry, no rashes. Neurologic: GCS 15, no focal deficits, symmetric strength 5/5 in the upper and lower extremities bilaterally. Psychiatric: Normal affect. ====ED Course and Medical Decision Making==== Differential diagnosis includes, but is not limited to: #### See MDM section for review of findings & plan of care. Portions of this note were dictated by speech recognition. An attempt at proof reading was made to minimize errors. Minor errors in clinical mental health counselor may be present. Please call if questions.. HISTORY OF PRESENTING ILLNESS TENNILLE is a 57 year old Female and was seen by me at 19-Sep-2022 12:31 for a chief complaint of neck pain (states she fell in april and has had neck pain since. states the pain has increased x 2 weeks, denies any new injury.)(1). Triage Information: Most recent Vital Sign Value Date Temp (F): 98 09-19-2022 12:41 Temp (C): 36.6 09-19-2022 12:41 Heart Rate (beats/min): 88 09-19-2022 12:41 Respirations (breaths/min): 18 09-19-2022 12:41 SpO2 (%): 96 09-19-2022 12:41 BP Systolic (mm Hg): 116 09-19-2022 12:41 BP Diastolic (mm Hg): 90 09-19-2022 12:41 PAST MEDICAL HISTORY ALLERGIES/INTOLERANCES: Allergy Allergen: penicillin Type: Drug Reaction: Hives/Urticaria Allergen: Amoxil Type: Drug Reaction: Other Allergen: erythromycin Type: Drug Reaction: Rash Allergen: aspirin Type: Drug Reaction: Other Allergen: Betadine Type: Drug Reaction: Rash Allergen: iodine Type: Drug Reaction: Itching Allergen: doxycycline Type: Drug Reaction: Resp Distress Allergen: ceftizoxime Type: Drug Reaction: Blistering Dis. Allergen: clindamycin Type: Drug Reaction: Blistering Dis. Allergen: povidone iodine topical Type: Drug Reaction: Itching HEALTH HISTORY: Medical History Name:Scleroderma Code:M34.9 Name:Polymyositis Code:M33.20 Name:Hypothyroidism Code:E03.9 Name:Hyperlipidemia Code:E78.5 Name:Depression with anxiety Code:F41.8 Name:Hypotension Code:I95.9 Name:Dizziness Code:R42 Name:Anemia Code:D64.9 OUTPATIENT MEDICATIONS: Home Medications Review Status for Reconciliation: Complete Med Status: Patient Currently Takes Medications Drug Name: ATORVASTATIN 10 MG TABLET Instructions: 1 tab(s) orally once a day (at bedtime) Drug Name: LEVOTHYROXINE 100 MCG TABLET Instructions: 1 tab(s) orally once a day Drug Name: SERTRALINE HCL 50 MG TABLET Instructions: 1 tab(s) orally 3 times a day Drug Name: ROPINIROLE HCL 0.25 MG TABLET Instructions: 2 tab(s) orally once a day (at bedtime) Drug Name: predniSONE 1 mg oral tablet Instructions: 4 tab(s) orally once a day Drug Name: Multiple Vitamins oral tablet Instructi (more content not included)... Normal [facility] Risk Screen - Adult Emergenc yon 09-19-2022 Risk Screen - Adult Emergency Preferred Language: Preferred Language: Preferred Language for Discussing Health Care (patient/designee)Gambian Patient Preferred Pharmacy: Patient Preferred Pharmacy Statement: I have reviewed and updated the patient's preferred pharmacy selection for today's visit. Advanced Directives: Advance Directive/DNRyes Advance Directive typeLiving Will Family Violence Adult: Abuse Screen: Are you or have you been threatened or abused physically, emotionally, or sexually by anyoneno Learning Assessment (Patient): Learning Assessment (Patient): Patient is Able to be Assessed for Learningyes Factors Influencing Readiness to Learnn/a Factors that Impact Ability to Learnnone Devices/Methods Used to Communicatenone Learning Preferencesverbal instruction Cultural Considerationsnone Developmental Considerationsnone Lutheran Considerationsnone Other Learnersfamily Learning Assessment (Other Learner): Learning Assessment (Other Learner): Other learner availableyes... Learnerfamily Factors Influencing Readiness to Learnn/a Factors that Impact Ability to Learnnone Devices/Methods Used to Communicatenone Learning Preferencesverbal instruction Cultural Considerationsnone Developmental Considerationsnone Lutheran Considerationsnone Pressure Injury/TB/Substance: Pressure Injury: Do you have a coughno Smoking Statusnever smoker Alcohol Usedenies Drug Usedenies Admission Risk Screen: Significant IndicatorsComplete CAGE: CAGE: Is this an injured patient at a Trauma Center ([facility]/[place]/ [place]): no Electronic Signatures: Robyn Collazo (JAYLA) (Signed 19-Sep-2022 12:51) Authored: Preferred Language, Patient Preferred Pharmacy, Advanced Directives, Family Violence Adult, Learning Assessment (Patient), Learning Assessment (Other Learner), Pressure Injury/TB/Substance, Pressure Injury, CAGE Last Updated: 19-Sep-2022 12:51 by Robyn Collazo (JAYLA) [facility] Triage - EDon 09-19-2022 Triage - ED Quick Triage: Are You no Have You Given In The Last 6 Weeksno Are You Currently Breastfeedingno Chart Review: PRIMARY ASSESSMENT ABCD Normal Findings: airway open and patent, circulation normal and alert and oriented ARRIVAL INFORMATION Means of Arrival: Ambulatory Mode of Arrival: private vehicle Arrival From: home Accompanied By: immediate family member Language: Spoken Language Preferred: Gambian Reading Language Preferred: Gambian Present on Arrival: Device Present on Arrival to ED: no CHIEF COMPLAINT TENNILLE ORTIZ is a Female patient with a chief complaint of neck pain (states she fell in april and has had neck pain since. states the pain has increased x 2 weeks, denies any new injury.). Triage Date/Time: 19-Sep-2022 12:25 IRAJ: 3 Pain Rating (0-10): 1 = Mild Vital Signs: Temperature: 98.0F ( 36.6C) taken temporal Blood Pressure: 116/90 Mean: Heart Rate: 88 Respiratory Rate: 18 Pulse Oximetry: 96% on room air, no respiratory support. Height: 5 feet 2.00 inches. 157.4 CM Weight: 113.0 pounds. Calculated 51.3 kg. (stated) Calculated BMI (kg/m2): 20.706 Calculated BSA (m2) 1.50 [place] Coma Scale: Best Eye Response: (E4) spontaneous Best Motor Response: (M6) obeys commands Best Verbal Response: (V5) oriented [place] Score: 15 Allergies: yes Last menstrual period: unknown Patient has homicidal thoughts: no Symptom Notes: . Symptoms Are POSITIVE For: neck pain. Mechanism Of Pain/Injury: fall Risk Screens Suicide Risk Screen In the Past Month: Have you wished you were or wished you could go to sleep and not wake up no In the Past Month: Have you had any actual thoughts of killing yourself no In Your Lifetime: Have you ever done anything, started to do anything, or prepared to do anything to end your life no Pierre Fall Scale Screening Has the patient fallen before (or is the patient in the ED as a result of a fall) has had a fall Does the patient have an impaired gait does not have impaired gait Is the patient cognitively impaired not cognitively impaired Pierre Fall Scale History of falling (immediate or previous) yes (25) Secondary Diagnosis yes (15) Intravenous Therapy/ Heparin/Saline Lock no (0) Gait/Transferring impaired (20) Ambulatory Aids none/bedrest/nurse assist (0) Mental Status oriented to own ability (0) Pierre Fall Risk Score: 60 Interventions: Pierre Fall Interventions: HIGH INTERVENTIONS *Low and Moderate Interventions Plus: * supervised toileting at all times TRAVEL HISTORY Travel History Coronavirus Screening: no exposure or symptoms Travel Exposure History: NO travel to International locations in the past 30 days PAIN Pain Scale Used: OTILIO Pain Rating (0-10): 1 = Mild Past Medical History: Past Medical History Reviewedyes GI tube- reversed: Past Medical History, Active Tracheostomy - reversed: Past Medical History, Active R hip replacement: Past Medical History, Active restrictive lung disease: Past Medical History, Active asthma: Past Medical History, Active scleraderma: Past Medical History, Active polymyocytis: Past Medical History, Active Electronic Signatures: Robyn Collazo (JAYLA) (Signed 19-Sep-2022 12:49) Entered: Risk Screens, Pain, Arrival, ABCD, Travel History, Chart Review, Scores, Past Medical History Authored: Quick Triage, Risk Screens, Pain, Arrival, ABCD, Travel History, Chart Review, Scores, Past Medical History Last Updated: 19-Sep-2022 12:49 by Robyn Collazo (JAYLA) [facility] Established Visit (Orthopaed ic Surgery)on 07-22-2022 Established Visit (Orthopaedic Surgery) Diagnoses/Problems Assessed Adhesive capsulitis of left shoulder (726.0) (M75.02) Left shoulder pain (719.41) (M25.512) Tendinitis of left rotator cuff (726.10) (M75.82) Orders Adhesive capsulitis of left shoulder, Left shoulder pain Administered: Triamcinolone Acetonide 40 MG/ML Injection Suspension Patient Discussion/Summary Tylenol per package directions, topical Diclofenac up to 4x/daily. ibuprofen on as needed basis for pain and inflammation. Encouraged home exercises and stretching in approximately 3 days and gradually increase as tolerated. I reviewed adverse effects of repetitive shoulder injections with further wear down of existing cartilage. Patient declines formal PT at this time. Patient is aware to contact the office if she does not wish to pursue formal PT or as previously recommended a second opinion shoulder specialist for ongoing symptoms. Plan will be to follow-up here in 3 months for reevaluation, sooner for changes or concerns. Provider Impressions Left shoulder pain, rotator cuff tendinopathy, adhesive capsulitis. 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 Chief Complaint PATIENT PRESENTS TO OFFICE FOR : 3 MONTH FUV LEFT SHOULDER PAIN ONSET: OVER 1 YEAR DOI / DOS: NA IMPROVED: NO PAIN: 5/10 PAIN MEDS TAKEN: ADVIL ROM: LIMITED ICE / HEAT APPLIED: NO BRACE WORN: NO LAST INJECTION: 12/15/21 REFERRAL: NA . History of Present Illness Agree with CC as noted. Tennille is a pleasant 57-year-old female here for evaluation of ongoing left shoulder pain. Patient states she got good relief with her last injection on 04/02/2022. Patient states since that time she did incur a fall and fractured ribs and T6AND7. She did not require any surgical intervention, continues to have some pain in the thoracic region and is slowly progressing since the injury. She states it did aggravate her shoulder symptoms. Patient does take Tylenol on a as needed basis in addition to routine medications. Denies any numbness or tingling. Review of Systems Constitutional: no fever, no chills and not feeling tired. ENT: no recent cough or URI sx, no nosebleeds. Cardiovascular: no chest pain. Respiratory: no shortness of breath and no cough. Gastrointestinal: no abdominal pain, no nausea, no vomiting and no diarrhea. Integumentary: no rashes or skin wounds. Neurological: no headache. Psychiatric: no depression and no sleep disturbances. Endocrine: no muscle weakness and no muscle cramps. Hematologic/Lymphatic: no swollen glands and no tendency for easy bruising. All other systems have been reviewed and are negative other than noted in HPI. 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) Hospital discharge follow-up (V67.59) (Z09) Hyperlipidemia (272.4) (E78.5) Hypothyroidism (244.9) (E03.9) ILD (interstitial lung disease) (515) (J84.9) Insomnia (780.52) (G47.00) Left knee pain (719.46) (M25.562) Left shoulder pain (719.41) (M25.512) Medicare annual wellness visit, subsequent (V70.0) (Z00.00) Nausea in adult (787.02) (R11.0) Osteoarthritis of right shoulder, unspecified osteoarthritis type (715.91) (M19.011) Osteoporosis (733.00) (M81.0) Pneumonia (486) (J18.9) 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) Preop examination (V72.84) (Z01.818) Raynauds disease (443.0) (I73.00) Restless leg syndrome (333.94) (G25.81) Right knee pain (719.46) (M25.561) Scleroderma (710.1) (M34.9) Shingles (053.9) (B02.9) Shortness of breath on exertion (786.05) (R06.02) Skin lesion of chest wall (709.9) (L98.9) Sore throat (462) (J02.9) Tendinitis of left rotator cuff (726.10) (M75.82) Thoracic back pain (724.1) (M54.6) Past Medical History Problems History of Hospital discharge follow-up (V67.59) (Z09) Resolved Date: 12 Mar 2021 Surgical History Problems History of Appendectomy History of Cystocele repair History of Finger amputation History of Hip replacement History of Hysterectomy vaginal History of Knee replacement 02/04/21 Right knee History of Tracheostomy History of Tubal ligation Family History Mother Family history of coronary artery disease (V17.3) (Z82.49) Father Family history of Cerebrovascular accident (CVA) due to other mechanism Family history of acute myocardial infarction (V17.3) (Z82.49) Daughter Family history of diabetes mellitus (V18.0) (Z83.3) Soci (more content not included)... Normal [employer] Tobacco Screening.on 023 Fall risk assessment b) One or more fall s in the last year [facility] [address] Work Phone: Tobacco use status [facility] b) No [facility] 300 Work Phone: Office Visit (Family Medicin e)on 04-26-2022 Follow-up visit Diagnoses/Problems Thoracic back pain (724.1) (M54.6) Fall with injury (959.9,E888.9) (W19.XXXA) Pneumonia (486) (J18.9) Fracture of T6 vertebra (805.2) (S22.059A) Orders Asthma, Pneumonia Renew: Albuterol Sulfate (2.5 MG/3ML) 0.083% Inhalation Nebulization Solution; USE 1 UNIT DOSE IN NEBULIZER EVERY 6 HOURS NEEDED Fall with injury, Thoracic back pain Start: Cyclobenzaprine HCl - 10 MG Oral Tablet; TAKE 1 TABLET Bedtime Provider Impressions Fracture T6: Instructed to schedule follow up appointment with Neuro in [place], per the ER discharge order. Thoracic bach pain: Flexeril 10 mg daily as needed, continue on Gabapentin already prescribed. Pneumonia: complete antibiotic (Levaquin), refill albuterol nebulizer, use albuterol nebulizer as needed for Cough/SOB return if symptoms persist or worsen Chief Complaint ER follow-up - fall. History of Present Illness Tennille is a 57 yo female here today for ER follow up. She was seen in ER on 04/17/22 and again on 04/22/2022 for injury after a fall. She fell at home on 04/16/22 after losing her balance in the bathroom in middle of night, she reports she fell onto a cardboard box. T 6 fracture and pneumonia continues to have pain to left rib/middle back pain did not call [place] [facility] to schedule neuro consult no new concerns today Review of Systems Constitutional: no chills, no fever and no night sweats. Cardiovascular: no chest pain, no intermittent leg claudication, no lower extremity edema, no palpitations and no syncope. Respiratory: no cough, no shortness of breath during exertion, no shortness of breath at rest and no wheezing. Gastrointestinal: no abdominal pain, no blood in stools, no constipation, no diarrhea, no melena, no nausea, no rectal pain and no vomiting. Genitourinary: no dysuria, no change in urinary frequency, no urinary hesitancy, no feelings of urinary urgency and no vaginal discharge. Musculoskeletal: history of falls and myalgias, but as noted in HPI. Integumentary: no new skin lesions and no rashes. Neurological: no difficulty walking, no headache, no limb weakness, no numbness and no tingling. Psychiatric: no anxiety, no depression, no anhedonia and no substance use disorders. 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) Hospital discharge follow-up (V67.59) (Z09) Hyperlipidemia (272.4) (E78.5) Hypothyroidism (244.9) (E03.9) ILD (interstitial lung disease) (515) (J84.9) Insomnia (780.52) (G47.00) Left knee pain (719.46) (M25.562) Left shoulder pain (719.41) (M25.512) Medicare annual wellness visit, subsequent (V70.0) (Z00.00) Nausea in adult (787.02) (R11.0) Osteoarthritis of right shoulder, unspecified osteoarthritis type (715.91) (M19.011) Osteoporosis (733.00) (M81.0) 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) Preop examination (V72.84) (Z01.818) Raynauds disease (443.0) (I73.00) Restless leg syndrome (333.94) (G25.81) Right knee pain (719.46) (M25.561) Scleroderma (710.1) (M34.9) Shingles (053.9) (B02.9) Shortness of breath on exertion (786.05) (R06.02) Skin lesion of chest wall (709.9) (L98.9) Sore throat (462) (J02.9) Tendinitis of left rotator cuff (726.10) (M75.82) Past Medical History History of Hospital discharge follow-up (V67.59) (Z09) Resolved Date: 12 Mar 2021 Surgical History History of Appendectomy History of Cystocele repair History of Finger amputation History of Hip replacement History of Hysterectomy vaginal History of Knee replacement 02/04/21 Right knee History of Tracheostomy History of Tubal ligation Family History Family history of coronary artery disease (V17.3) (Z82.49) Family history of Cerebrovascular accident (CVA) due to other mechanism Family history of acute myocardial infarction (V17.3) (Z82.49) Family history of diabetes mellitus (V18.0) (Z83.3) Social History Daily caffeine consumption Never a smoker No illicit drug use No recent foreign travel Occasional alcohol use Patient has living will (V49.89) (Z78.9) Allergies doxycycline Shortness of breath; Palpitations; Weakness; Recorded By: Aminah Carter; 07/18/2020 3:20:07 PM Penicillins Hives;; Recorded By: Aminah Carter; 07/18/2020 3:20:07 PM Aspirin TABS Unknown; Recorded By: Aminah Carter; 07/18/2020 3:20:07 PM Betadine Itching; Recorded By: Aminah Carter; 07/18/2020 3:20:07 PM ceftazidime Skin Irritation; Recorded By: Aminah Carter; 07/18/2020 3:20:07 PM clindamycin Skin Irritati (more content not included)... Normal [employer] Tobacco Screening.on 022 Fall risk assessment b) One or more fall s in the last year -[facility] Work Phone: Tobacco use status [facility] b) No -[facility] Work Phone: BASIC METABOLIC PANELon 04-04-2021 Anion gap [Moles/Vol] 11 mmol/L Normal 10 - 20 [facility] Comment on above: Performed By: #### B MP #### [address] [address] Calcium [Mass/Vol] 9.2 mg/dL Normal 8.6 - 10.3 [facility] Comment on above: Performed By: #### B MP #### [address] [address] Chloride [Moles/Vol] 102 mmol/L Normal 98 - 107 [facility] Comment on above: Performed By: #### B MP #### [address] [address] Creatinine [Mass/Vol] 0.35 mg/dL Low 0.50 - 1.05 [facility] Comment on above: Performed By: #### B MP #### [address] [address] eGFR FEMALE >90 Normal >90 [facility] Comment on above: Result Comment: CALC ULATIONS OF ESTIMATED GFR ARE PERFORMED USING THE 2020 CKD-EPI STUDY REFIT EQUATION WITHOUT THE RACE VARIABLE FOR THE IDMS-TRACEABLE CREATININE METHODS. https://jasn.asnjournals.org/content/early//ASN.5423679 988 Performed By: #### B MP #### [address] [address] Glucose [Mass/Vol] 76 mg/dL Normal 74 - 99 [facility] Comment on above: Performed By: #### B MP #### [address] [address] HCO3 (Bld) [Moles/Vol] 32 mmol/L Normal 21 - 32 [facility] Comment on above: Performed By: #### B MP #### [address] [address] Potassium [Moles/Vol] 4.7 mmol/L Normal 3.5 - 5.3 [facility] Comment on above: Performed By: #### B MP #### [address] [address] Sodium [Moles/Vol] 140 mmol/L Normal 136 - 145 [facility] Comment on above: Performed By: #### B MP #### [address] [address] Urea nitrogen [Mass/Vol] 15 mg/dL Normal 6 - 23 [facility] Comment on above: Performed By: #### B MP #### [address] [address] CBC AND DIFFERENTIALon 04-22 Basophils (Bld) [#/Vol] 0.10 10*3/uL Normal 0.00 - 0.10 [facility] Comment on above: Performed By: #### C BCDF #### [address] [address] Basophils/100 WBC (Bld) 0.9 % Normal 0.0 - 2.0 [facility] Comment on above: Performed By: #### C BCDF #### [address] [address] Eosinophils (Bld) [#/Vol] 0.20 10*3/uL Normal 0.00 - 0.70 [facility] Comment on above: Performed By: #### C BCDF #### [address] [address] Eosinophils/100 WBC (Bld) 2.8 % Normal 0.0 - 6.0 [facility] Comment on above: Performed By: #### C BCDF #### [address] [address] Erythrocyte distribution width (RBC) [Ratio] 15.0 % High 11.5 - 14.5 [facility] Comment on above: Performed By: #### C BCDF #### [address] [address] Hematocrit (Bld) [Volume fraction] 38.6 % Normal 36.0 - 46.0 [facility] Comment on above: Performed By: #### C BCDF #### [address] [address] Hemoglobin (Bld) [Mass/Vol] 12.3 g/dL Normal 12.0 - 16.0 [facility] Comment on above: Performed By: #### C BCDF #### [address] [address] Lymphocytes (Bld) [#/Vol] 0.70 10*3/uL Low 1.20 - 4.80 [facility] Comment on above: Performed By: #### C BCDF #### [address] [address] Lymphocytes/100 WBC (Bld) 13.1 % Normal 13.0 - 44.0 [facility] Comment on above: Performed By: #### C BCDF #### [address] [address] MCHC (RBC) [Mass/Vol] 31.8 g/dL Low 32.0 - 36.0 [facility] Comment on above: Performed By: #### C BCDF #### [address] [address] MCV (RBC) [Entitic vol] 92 fL Normal 80 - 100 [facility] Comment on above: Performed By: #### C BCDF #### [address] [address] Monocytes (Bld) [#/Vol] 0.60 10*3/uL Normal 0.10 - 1.00 [facility] Comment on above: Performed By: #### C BCDF #### [address] [address] Monocytes/100 WBC (Bld) 10.4 % Normal 2.0 - 10.0 [facility] Comment on above: Performed By: #### C BCDF #### [address] [address] Neutrophils (Bld) [#/Vol] 4.00 10*3/uL Normal 1.20 - 7.70 [facility] Comment on above: Result Comment: Perc ent differential counts (%) should be interpreted in the context of the absolute cell counts (cells/L). Performed By: #### C BCDF #### [address] [address] Neutrophils/100 WBC (Bld) 72.8 % Normal 40.0 - 80.0 [facility] Comment on above: Performed By: #### C BCDF #### [address] [address] NUCLEATED RBC 0.1 /100 WBC Normal [facility] Comment on above: Performed By: #### C BCDF #### [address] [address] Platelets (Bld) [#/Vol] 279 10*3/uL Normal 150 - 450 [facility] Comment on above: Performed By: #### C BCDF #### [address] [address] RBC 4.19 x10E12/L Normal 4.00 - 5.20 [facility] Comment on above: Performed By: #### C BCDF #### [address] [address] WBC (Bld) [#/Vol] 5.5 10*3/uL Normal 4.4 - 11.3 [facility] Comment on above: Performed By: #### C BCDF #### [address] [address] [address] ANGIO CHEST FOR PEon 2 CT ANGIO CHEST FOR PE Patient Name: TENNILLE ORTIZ STUDY: CT ANGIO CHEST FOR PE; 04/22/2022 12:54 pm INDICATION: chest pain worse with breathing . COMPARISON: CT chest PE 01/06/2021 and 08/18/2019 ACCESSION NUMBER(S): [id number] ORDERING CLINICIAN: EZEQUIEL ARMAS TECHNIQUE: Helical data acquisition of the chest was obtained after administration of 75ml IV Omnipaque 350. Images were reformatted in coronal and sagittal planes. Axial and coronal MIP images were created and reviewed. FINDINGS: POTENTIAL LIMITATIONS OF THE STUDY: Motion HEART AND VESSELS: No discrete filling defects within the main pulmonary artery or its branches. Main pulmonary artery dilation up to 3.4 cm, likely secondary to pulmonary hypertension. The thoracic aorta is of normal course and caliber without vascular calcifications. Mild coronary artery calcifications are seen.The study is not optimized for evaluation of coronary arteries. The cardiac chambers are not enlarged. No evidence of pericardial effusion. MEDIASTINUM AND ALFIE, LOWER NECK AND AXILLA: The visualized thyroid gland is within normal limits. No evidence of thoracic lymphadenopathy by CT criteria. Esophagus appears within normal limits as seen. LUNGS AND AIRWAYS: Central airways are patent. Moderate amount of retained secretions within the lower trachea. Patchy opacities in the lung bases, greater on the left concerning for pneumonia. No pneumothorax. No pleural effusion. No suspicious pulmonary nodules. UPPER ABDOMEN: The visualized subdiaphragmatic structures demonstrate no remarkable findings. CHEST WALL AND OSSEOUS STRUCTURES: There are no suspicious osseous lesions. New compression deformity T7 vertebral body with approximately 30% loss of disc height, since 2020. Multilevel degenerative changes are present IMPRESSION: 1. Airspace opacities in the lung bases, greater on the left concerning for pneumonia. 2. Main pulmonary artery dilation up to 3.4 cm, likely secondary to pulmonary hypertension. 3. Interval development T7 vertebral body compression deformity since 2020. Electronically signed by: RENATO SMALLS MD [facility] CT T Spine without Contrasto n 04-22-2022 CT Thoracic spine WO contrast Normal [facility] Work Phone: CT T-SPINE WO CONTRASTon CT T-SPINE WO CONTRAST Patient Name: TENNILLE ORTIZ STUDY: CT T-SPINE WO CONTRAST; 04/22/2022 12:54 pm INDICATION: thoracic pain after falling . COMPARISON: CT chest 08/18/2019 and 01/06/2021. ACCESSION NUMBER(S): [id number] ORDERING CLINICIAN: EZEQUIEL ARMAS TECHNIQUE: Axial CT images of the thoracic spine are obtained. Axial, coronal and sagittal reconstructions are submitted for review. FINDINGS: THORACIC SPINE: Alignment: Thoracic kyphosis is maintained Vertebral Body Heights: . interval development of acute fracture at T6 with approximately 30% loss of disc height and mild retropulsion at the superior posterior endplate. No significant canal stenosis. Vertebral body heights are otherwise maintained. Intervertebral Discs: The disc spaces are grossly preserved. Degenerative change: There is no significant spinal canal stenosis. No high-grade neural foraminal narrowing. Paraspinous Soft Tissues: Within normal limits. Airspace opacities in the lung bases, greater on the left concerning for pneumonia. IMPRESSION: Acute T6 vertebral body fracture with approximately 30% loss of disc height and mild retropulsion. No significant canal stenosis. Electronically signed by: RENATO SMALLS MD [facility] Complete Blood Count + Diffe rentialon 04-22-2022 Basophils/100 WBC (Bld) 0.9 % 0.0 - 2.0 [facility] Work Phone: Erythrocyte distribution width (RBC) [Ratio] 15.0 % above high threshold See Below [facility] Work Phone: Comment on above: Reference Range: 11. 5 - 14.5 Hematocrit (Bld) [Volume fraction] 38.6 % See Below [facility] Work Phone: Comment on above: Reference Range: 36. 0 - 46.0 Hemoglobin (Bld) [Mass/Vol] 12.3 g/dL See Below [facility] Work Phone: Comment on above: Reference Range: 12. 0 - 16.0 Lymphocytes/100 WBC (Bld) 13.1 % See Below [facility] Work Phone: Comment on above: Reference Range: 13. 0 - 44.0 MCHC (RBC) [Mass/Vol] 31.8 g/dL below low threshold See Below [facility] Work Phone: Comment on above: Reference Range: 32. 0 - 36.0 MCV (RBC) [Entitic vol] 92 fL 80 - 100 [facility] Work Phone: Monocytes/100 WBC (Bld) 10.4 % 2.0 - 10.0 [facility] Work Phone: Neutrophils/100 WBC (Bld) 72.8 % See Below [facility] Work Phone: Comment on above: Reference Range: 40. 0 - 80.0 Platelets (Bld) [#/Vol] 279 10*3/uL 150 - 450 [facility] Work Phone: RBC (Bld) [#/Vol] 4.19 {x10E12/L} See Below [facility] Work Phone: Comment on above: Reference Range: 4.0 0 - 5.20 WBC (Bld) [#/Vol] 5.5 10*3/uL 4.4 - 11.3 [facility] Work Phone: Complete Blood Count + Differential 0.10 {x10E9/L} See Below [facility] Work Phone: Comment on above: Reference Range: 0.0 0 - 0.10 Complete Blood Count + Differential 0.20 {x10E9/L} See Below [facility] Work Phone: Comment on above: Reference Range: 0.0 0 - 0.70 Complete Blood Count + Differential 0.60 {x10E9/L} See Below [facility] Work Phone: Comment on above: Reference Range: 0.1 0 - 1.00 Complete Blood Count + Differential 0.70 {x10E9/L} below low threshold See Below [facility] Work Phone: Comment on above: Reference Range: 1.2 0 - 4.80 Complete Blood Count + Differential 4.00 {x10E9/L} See Below [facility] Work Phone: Comment on above: Reference Range: 1.2 0 - 7.70 Percent differential counts (%) should be interpreted in the context of the absolute cell counts (cells/L). Complete Blood Count + Differential 2.8 % 0.0 - 6.0 [facility] Work Phone: Complete Blood Count + Differential 0.1 {/100_WBC} [facility] Work Phone: Laboratory - Chemistry and C hemistry - challengeon 04-22-2022 Anion gap [Moles/Vol] 11 mmol/L 10 - 20 [facility] Work Phone: Calcium [Mass/Vol] 9.2 mg/dL 8.6 - 10.3 [facility] Work Phone: Chloride [Moles/Vol] 102 mmol/L 98 - 107 [facility] Work Phone: CO2 [Moles/Vol] 32 mmol/L 21 - 32 [facility] Work Phone: Creatinine [Mass/Vol] 0.35 mg/dL below low threshold See Below [facility] Work Phone: Comment on above: Reference Range: 0.5 0 - 1.05 Glucose [Mass/Vol] 76 mg/dL 74 - 99 [facility] Work Phone: Potassium [Moles/Vol] 4.7 mmol/L 3.5 - 5.3 [facility] Work Phone: Sodium [Moles/Vol] 140 mmol/L 136 - 145 [facility] Work Phone: Urea nitrogen [Mass/Vol] 15 mg/dL 6 - 23 [facility] Work Phone: No Panel Informationon 04-22 >90 >90 [facility] Work Phone: Comment on above: CALCULATIONS OF YON MATED GFR ARE PERFORMED USING THE 2020 CKD-EPI STUDY REFIT EQUATION WITHOUT THE RACE VARIABLE FOR THE IDMS-TRACEABLE CREATININE METHODS.https://jasn.asnjournals.org/content//ASN .4010163451 Provider Note - ED v3on 04-04 Provider Note - ED v3 Provider Note: Chart Review: ED NOTES ED NOTES: HPI: Patient presents ER today with multiple complaints. She was seen here about a week ago after mechanical fall in her bathroom and landing on a cardboard box. At that time she complained of pain in her ribs. At that time rib x-ray was unremarkable and patient discharged home. She states that the pain is worsening and now has pain that radiates through from her left chest through to her thoracic spine. She states the pain is severe and makes it difficult for her to breathe. She did have a short prescription for Flexeril which she used. She states it did give mild relief but as she is out the pain is returning. She complains of this chest pain through to her back for at least the last 3 days. ROS: Constitution: Denies Eyes: Liborio Ears: Denies Nose: Denies Mouth/Teeth: Denies Throat/Neck: Denies Cardiovascular: Chest pain Respiratory: Denies Gastrointestinal: Denies Musculoskeletal: Thoracic pain Integumentary: Denies Endocrine: Denies Neuro: Denies Psychiatric: Denies Heme/Lymph: Denies Allergic/Immunologic: Denies Medical/Family HX: Scleroderma, denies any heart troubles high blood pressure diabetes or smoking. Physical Exam I have reviewed the triage vital signs. Const: Thin female who appears older than stated age, no acute distress Eyes: PERRL, EOM intact, no conjunctival injection, vision grossly normal HENT: Neck supple without meningismus , Moist mucous membranes, no pharyengeal swelling or exudate CV: Regular rate and rhythm, Warm, well-perfused extremities. Chest tenderness on left side RESP: Lungs clear bilaterally, Unlabored respiratory effort GI: soft, non-tender, non-distended, no masses : MSK: No gross deformities appreciated. Multiple amputations of fingers Back: Pain with range of motion, point tenderness over the thoracic spine. Skin: Warm, dry. 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 Sensation and motor function of extremities grossly intact. Psych: Appropriate mood and affect. I have reviewed and confirmed nurses/medics notes for patient past, social and family history. Portions of this note were dictated by speech recognition. An attempt at proof reading was made to minimize errors. Minor errors in clinical mental health counselor may be present. HISTORY OF PRESENTING ILLNESS TENNILLE is a 57 year old Female and was seen by me at 22-Apr-2022 09:57 for a chief complaint of back pain (back pain since tuesday, worsening. Seen here tuesday d/t fall. reports negative results + mid thoracic 04/12 , non-radiating, denies numbness or tingling)(1). Triage Information: Most recent Vital Sign Value Date Temp (F): 98.1 04-22-2022 10:07 Temp (C): 36.7 04-22-2022 10:07 Heart Rate (beats/min): 58 04-22-2022 10:07 Respirations (breaths/min): 18 04-22-2022 10:07 SpO2 (%): 99 04-22-2022 10:07 BP Systolic (mm Hg): 130 04-22-2022 10:07 BP Diastolic (mm Hg): 73 04-22-2022 10:07 PAST MEDICAL HISTORY ALLERGIES/INTOLERANCES: Allergy Allergen: penicillin Type: Drug Reaction: Hives/Urticaria Allergen: Amoxil Type: Drug Reaction: Other Allergen: erythromycin Type: Drug Reaction: Rash Allergen: aspirin Type: Drug Reaction: Other Allergen: Betadine Type: Drug Reaction: Rash Allergen: iodine Type: Drug Reaction: Itching Allergen: doxycycline Type: Drug Reaction: Resp Distress Allergen: ceftizoxime Type: Drug Reaction: Blistering Dis. Allergen: clindamycin Type: Drug Reaction: Blistering Dis. Allergen: povidone iodine topical Type: Drug Reaction: Itching HEALTH HISTORY: Medical History Name:Scleroderma Code:M34.9 Name:Polymyositis Code:M33.20 Name:Hypothyroidism Code:E03.9 Name:Hyperlipidemia Code:E78.5 Name:Depression with anxiety Code:F41.8 Name:Hypotension Code:I95.9 Name:Dizziness Code:R42 Name:Anemia Code:D64.9 OUTPATIENT MEDICATIONS: Home Medications Review Status for Reconciliation: Incomplete Med Status: Incomplete Medication History Drug Name: meloxicam 7.5 mg oral tablet Instructions: 1 tab(s) orally once a day Drug Name: traZODone 50 mg oral tablet Instructions: 2 tab(s) orally once a day (at bedtime) Drug Name: Milk of Magnesia 8% oral suspension Instructions: 30 milliliter(s) orally once a day, As Needed - for constipation Drug Name: ATORVASTATIN 10 MG TABLET Instructions: 1 tab(s) orally once a day (at bedtime) Drug Name: LEVOTHYROXINE 100 MCG TABLET Instructions: 1 tab(s) orally once a day Drug Name: SERTRALINE HCL 50 MG TABLET Instructions: 1 tab(s) orally 3 times a day Drug Name: ROPINIROLE HCL 0.25 MG TABLET Instructions: 2 tab(s) orally once a day (at bedtime) Drug Name: BACLOFEN 10 MG TABLET Instructions: 1 tab(s) orally 3 times a day, As Needed SIGNIFICANT EVENTS: Past Me (more content not included)... Normal [facility] Risk Screen - Adult Emergenc yon 04-22-2022 Risk Screen - Adult Emergency Preferred Language: Preferred Language: Preferred Language for Discussing Health Care (patient/designee)Gambian Patient Preferred Pharmacy: Patient Preferred Pharmacy Statement: I have reviewed and updated the patient's preferred pharmacy selection for today's visit. Advanced Directives: Advance Directive/DNRyes Family Violence Adult: Abuse Screen: Are you or have you been threatened or abused physically, emotionally, or sexually by anyoneno Learning Assessment (Patient): Learning Assessment (Patient): Patient is Able to be Assessed for Learningyes Factors Influencing Readiness to Learnacuteness of illness; pain Factors that Impact Ability to Learnacuteness of illness Devices/Methods Used to Communicatenone Learning Preferencesindividual instruction Cultural Considerationsnone Developmental Considerationsnone Lutheran Considerationsnone Learning Assessment (Other Learner): Learning Assessment (Other Learner): Other learner availableyes... Learnerfamily Factors Influencing Readiness to Learnacuteness of illness Factors that Impact Ability to Learnacuteness of illness Devices/Methods Used to Communicatenone Learning Preferencesindividual instruction Cultural Considerationsnone Developmental Considerationsnone Lutheran Considerationsnone Pressure Injury/TB/Substance: Pressure Injury: Do you have a coughno Smoking Statusnever smoker Alcohol Useoccasionally Drug Usedenies Drug 2 Usedenies Admission Risk Screen: Significant IndicatorsComplete CAGE: CAGE: Is this an injured patient at a Trauma Center ([facility]/[place]/ [place]): no Electronic Signatures: Dorene Richard (N MGR) (Signed 22-Apr-2022 10:17) Authored: Preferred Language, Patient Preferred Pharmacy, Advanced Directives, Family Violence Adult, Learning Assessment (Patient), Learning Assessment (Other Learner), Pressure Injury/TB/Substance, Pressure Injury, CAGE Last Updated: 22-Apr-2022 10:17 by Dorene Richard (N MGR) Normal [facility] TH CT Angio Chest For PEon [address] Angio Chest For PE Normal -[facility] Work Phone: TROPONIN I, HIGH SENSITIVITY on 04-22-2022 TROPONIN I, HIGH SENSITIVITY 3 ng/L Normal 0 - 13 [facility] Comment on above: Result Comment: . Less than 99th percentile of normal range cutoff- Female and children under 18 years old <14 ng/L; Male <21 ng/L: Negative Repeat testing should be performed if clinically indicated. . Female and children under 18 years old 14-50 ng/L; Male 21-50 ng/L: Consistent with possible cardiac damage and possible increased clinical risk. Serial measurements may help to assess extent of myocardial damage. . >50 ng/L: Consistent with cardiac damage, increased clinical risk and myocardial infarction. Serial measurements may help assess extent of myocardial damage. . NOTE: Children less than 1 year old may have higher baseline troponin levels and results should be interpreted in conjunction with the overall clinical context. . NOTE: Troponin I testing is performed using a different testing methodology at [facility] than at other [facility]. Direct result comparisons should only be made within the same method. Performed By: #### [facility] #### [place] [address] TROPONIN I, HIGH SENSITIVITY <3 Normal 0 - [facility] Comment on above: Result Comment: . Less than 99th percentile of normal range cutoff- Female and children under 18 years old <14 ng/L; Male <21 ng/L: Negative Repeat testing should be performed if clinically indicated. . Female and children under 18 years old 14-50 ng/L; Male 21-50 ng/L: Consistent with possible cardiac damage and possible increased clinical risk. Serial measurements may help to assess extent of myocardial damage. . >50 ng/L: Consistent with cardiac damage, increased clinical risk and myocardial infarction. Serial measurements may help assess extent of myocardial damage. . NOTE: Children less than 1 year old may have higher baseline troponin levels and results should be interpreted in conjunction with the overall clinical context. . NOTE: Troponin I testing is performed using a different testing methodology at [facility] than at other [facility]. Direct result comparisons should only be made within the same method. Performed By: #### [facility] #### [facility] [address] [place] [address] Tropinin I.cardiac panel High sensitivity method 3 ng/L 0 - 13 [facility] Work Phone: Comment on above: .Less than 99th perc entile of normal range cutoff-Female and children under 18 years old <14 ng/L; Male <21 ng/L: NegativeRepeat testing should be performed if clinically indicated. .Female and children under 18 years old 14-50 ng/L; Male 21-50 ng/L:Consistent with possible cardiac damage and possible increased clinical risk. Serial measurements may help to assess extent of myocardial damage. .>50 ng/L: Consistent with cardiac damage, increased clinical risk andmyocardial infarction. Serial measurements may help assess extent of myocardial damage. . NOTE: Children less than 1 year old may have higher baseline troponin levels and results should be interpreted in conjunction with the overall clinical context. .NOTE: Troponin I testing is performed using a different testing methodology at [facility] than at other [facility]. Direct result comparisons should only be made within the same method. Tropinin I.cardiac panel High sensitivity method <3 0 - 13 [facility] Work Phone: Comment on above: .Less than 99th perc entile of normal range cutoff-Female and children under 18 years old <14 ng/L; Male <21 ng/L: NegativeRepeat testing should be performed if clinically indicated. .Female and children under 18 years old 14-50 ng/L; Male 21-50 ng/L:Consistent with possible cardiac damage and possible increased clinical risk. Serial measurements may help to assess extent of myocardial damage. .>50 ng/L: Consistent with cardiac damage, increased clinical risk andmyocardial infarction. Serial measurements may help assess extent of myocardial damage. . NOTE: Children less than 1 year old may have higher baseline troponin levels and results should be interpreted in conjunction with the overall clinical context. .NOTE: Troponin I testing is performed using a different testing methodology at [facility] than at other [facility]. Direct result comparisons should only be made within the same method. Triage - EDon 04-22-2022 Triage - ED Quick Triage: Are You no Are You Currently Breastfeedingno The patient and/or guardian verbally acknowledges placement for services into the following (when Urgent Care Service hours are operating):emergency department Chart Review: ARRIVAL INFORMATION Mode of Arrival: private vehicle CHIEF COMPLAINT TENNILLE ORTIZ is a Female patient with a chief complaint of back pain (back pain since tuesday, worsening. Seen here tuesday d/t fall. reports negative results + mid thoracic 04/12 , non-radiating, denies numbness or tingling). Triage Date/Time: 22-Apr-2022 10:07 IRAJ: 3 Pain Rating (0-10): 10 = Severe Vital Signs: Temperature: 98.1F ( 36.7C) taken temporal Blood Pressure: 130/73 Mean: Heart Rate: 58 Respiratory Rate: 18 Pulse Oximetry: 99% on room air, no respiratory support. Height: 5 feet 3.00 inches. 160.0 CM Weight: 105.1 pounds. Calculated 47.7 kg. Calculated BMI (kg/m2): 18.632 Calculated BSA (m2) 1.46 [place] Coma Scale: Best Eye Response: (E4) spontaneous Best Motor Response: (M6) obeys commands Best Verbal Response: (V5) oriented Aimee Score: 15 Patient has homicidal thoughts: no Risk Screens Suicide Risk Screen In the Past Month: Have you wished you were or wished you could go to sleep and not wake up no In the Past Month: Have you had any actual thoughts of killing yourself no In Your Lifetime: Have you ever done anything, started to do anything, or prepared to do anything to end your life no Pierre Fall Scale Screening Has the patient fallen before (or is the patient in the ED as a result of a fall) has had a fall Does the patient have an impaired gait has impaired gait Is the patient cognitively impaired not cognitively impaired Pierre Fall Scale History of falling (immediate or previous) yes (25) Secondary Diagnosis yes (15) Intravenous Therapy/ Heparin/Saline Lock no (0) Gait/Transferring impaired (20) Ambulatory Aids furniture (30) Mental Status oriented to own ability (0) Pierre Fall Risk Score: 90 Interventions: Pierre Fall Interventions: HIGH INTERVENTIONS *Low and Moderate Interventions Plus: * supervised toileting at all times TRAVEL HISTORY Travel History Coronavirus Screening: no exposure or symptoms Travel Exposure History: NO travel to International locations in the past 30 days PAIN Pain Scale Used: OTILIO Pain Rating (0-10): 10 = Severe Past Medical History: Past Medical History Reviewedyes Electronic Signatures: Dorene Richard (N MGR) (Signed 22-Apr-2022 10:16) Entered: Risk Screens, Pain, Travel History, Chart Review, Scores, Past Medical History Authored: Quick Triage, Risk Screens, Pain, Travel History, Chart Review, Scores, Past Medical History Last Updated: 22-Apr-2022 10:16 by Dorene Richard (N MGR) [facility] Provider Note - ED v3on 04-03 Provider Note - ED v3 Provider Note: Chart Review: ED NOTES ED NOTES: HPI: Yesterday at 1:30 in the morning patient gone to the bathroom where she lost her balance and fell onto a cardboard box. She complains of pain in the right anterior lateral ribs. She also notes a productive cough. Review of systems negative otherwise. Does note a chronic medical history of scleroderma. ROS: Constitution: Denies Eyes: Lib[place] Ears: Denies Nose: Denies Mouth/Teeth: Denies Throat/Neck: Denies Cardiovascular: Denies Respiratory: Cough Gastrointestinal: Denies Musculoskeletal: Right rib pain Integumentary: Denies Endocrine: Denies Neuro: Denies Psychiatric: Denies Heme/Lymph: Denies Allergic/Immunologic: Denies Physical Exam I have reviewed the triage vital signs. Const: Well nourished, well developed, appears stated age, no acute distress Eyes: PERRL, EOM intact, no conjunctival injection, vision grossly normal HENT: Neck supple without meningismus , Moist mucous membranes, no pharyengeal swelling or exudate CV: Regular rate and rhythm, Warm, well-perfused extremities. Chest non tender RESP: Lungs clear bilaterally, Unlabored respiratory effort GI: soft, non-tender, non-distended, no masses : MSK: No gross deformities appreciated Back: Non tender, no pain with ROM Skin: Warm, dry. 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 Sensation and motor function of extremities grossly intact. Psych: Appropriate mood and affect. I have reviewed and confirmed nurses/medics notes for patient past, social and family history. Portions of this note were dictated by speech recognition. An attempt at proof reading was made to minimize errors. Minor errors in clinical mental health counselor may be present. HISTORY OF PRESENTING ILLNESS TENNILLE is a 57 year old Female and was seen by me at 17-Apr-2022 13:37 for a chief complaint of fall (reports tuesday morning fell in hallway at home landing on a box on right side and mid back. pain has increased since, has also developed SOB since falling)(1). Triage Information: Most recent Vital Sign Value Date Temp (F): 97.9 04-17-2022 14:21 Temp (C): 36.6 04-17-2022 14:21 Heart Rate (beats/min): 75 04-17-2022 14:21 Respirations (breaths/min): 18 04-17-2022 14:21 BP Systolic (mm Hg): 121 04-17-2022 14:21 BP Diastolic (mm Hg): 81 04-17-2022 14:21 PAST MEDICAL HISTORY PSYCHOSOCIAL SCREENING: NO: concerns for safety at home, feelings of depression, feels like hurting others and feels like hurting self CURRENT OR FORMER SUBSTANCE USE: Tobacco/Nicotine Use: never smoker Alcohol Use: denies Drug Use: denies,ALLERGIES/INTOLERA NCES: Allergy Allergen: penicillin Type: Drug Reaction: Hives/Urticaria Allergen: Amoxil Type: Drug Reaction: Other Allergen: erythromycin Type: Drug Reaction: Rash Allergen: aspirin Type: Drug Reaction: Other Allergen: Betadine Type: Drug Reaction: Rash Allergen: iodine Type: Drug Reaction: Itching Allergen: doxycycline Type: Drug Reaction: Resp Distress Allergen: ceftizoxime Type: Drug Reaction: Blistering Dis. Allergen: clindamycin Type: Drug Reaction: Blistering Dis. Allergen: povidone iodine topical Type: Drug Reaction: Itching HEALTH HISTORY: Medical History Name:Scleroderma Code:M34.9 Name:Polymyositis Code:M33.20 Name:Hypothyroidism Code:E03.9 Name:Hyperlipidemia Code:E78.5 Name:Depression with anxiety Code:F41.8 Name:Hypotension Code:I95.9 Name:Dizziness Code:R42 Name:Anemia Code:D64.9 OUTPATIENT MEDICATIONS: Home Medications Review Status for Reconciliation: N/A Med Status: Patient Currently Takes Medications Drug Name: meloxicam 7.5 mg oral tablet Instructions: 1 tab(s) orally once a day Drug Name: traZODone 50 mg oral tablet Instructions: 2 tab(s) orally once a day (at bedtime) Drug Name: ROPINIROLE HCL 0.25 MG TABLET Instructions: TAKE 2 TABLETS BY MOUTH EVERY DAY Drug Name: ATORVASTATIN 10 MG TABLET Instructions: TAKE 1 TABLET BY MOUTH EVERYDAY AT BEDTIME Drug Name: PREDNISONE 1 MG TABLET Instructions: TAKE 4 TABLETS BY MOUTH ONCE DAILY. Drug Name: LEVOTHYROXINE 100 MCG TABLET Instructions: TAKE 1 TABLET BY MOUTH EVERY DAY Drug Name: BACLOFEN 10 MG TABLET Instructions: 1 orally 3 times a day Drug Name: SERTRALINE HCL 50 MG TABLET Instructions: 1 orally 3 times a day Drug Name: ipratropium-albuterol 0.5 mg-2.5 mg/3 mLinhalation solution Instructions: 3 milliliter(s) inhaled every 6 hours, As Needed -for shortness of breath Drug Name: Milk of Magnesia 8% oral suspension Instructions: 30 milliliter(s) orally once a day, As Needed - for constipation Drug Name: buprenorphine 7.5 mcg/hr transdermal film, extended release Instructions: 1 patch transdermal once a week// change on SIGNIFICANT EVENTS: Past Medical Histo (more content not included)... Normal [facility] RIBS, UNILATERAL, W PA CXR 3 VIEWSon 04-17-2022 RIBS, UNILATERAL, W PA CXR 3 VIEWS Patient Name: TENNILLE ORTIZ STUDY: RIBS, UNILATERAL, W PA CXR 3 VIEWS; 04/17/2022 2:54 pm INDICATION: fall . COMPARISON: Chest radiograph 08/11/2020 ACCESSION NUMBER(S): [id number] ORDERING CLINICIAN: EZEQUIEL ARMAS FINDINGS: CARDIOMEDIASTINAL SILHOUETTE: Cardiomediastinal silhouette is normal in size and configuration. LUNGS: There is no active infiltrate, pleural fluid or congestion. There are chronic interstitial changes of the lungs. ABDOMEN: No remarkable upper abdominal findings. The abdomen is not completely included but there is a large amount of stool within the visualized portion of the colon BONES: Five views right ribs: There is no acute right rib fracture. IMPRESSION: No acute right rib fracture. Electronically signed by: CJ MIRANDA MD Normal [facility] Radiologyon 04-17-2022 XR Ribs - left 3 Views Normal [facility] Work Phone: Triage - EDon 04-17-2022 Triage - ED Quick Triage: Are You no Have You Given In The Last 6 Weeksno Are You Currently Breastfeedingno The patient and/or guardian verbally acknowledges placement for services into the following (when Urgent Care Service hours are operating):emergency department Chart Review: ARRIVAL INFORMATION Mode of Arrival: private vehicle CHIEF COMPLAINT TENNILLE ORTIZ is a Female patient with a chief complaint of fall (reports tuesday morning fell in hallway at home landing on a box on right side and mid back. pain has increased since, has also developed SOB since falling). Triage Date/Time: 17-Apr-2022 14:21 IRAJ: 3 Pain Rating (0-10): 4 = Moderate Vital Signs: Temperature: 97.9F ( 36.6C) taken temporal Blood Pressure: 121/81 Mean: Heart Rate: 75 Respiratory Rate: 18 Height: 5 feet 3.00 inches. 160.0 CM Weight: 110.2 pounds. Calculated 50.0 kg. (stated) Calculated BMI (kg/m2): 19.531 Calculated BSA (m2) 1.49 Aimee Coma Scale: Best Eye Response: (E4) spontaneous Best Motor Response: (M6) obeys commands Best Verbal Response: (V5) oriented Aimee Score: 15 Allergies: yes Patient has homicidal thoughts: no Risk Screens Suicide Risk Screen In the Past Month: Have you wished you were or wished you could go to sleep and not wake up no In the Past Month: Have you had any actual thoughts of killing yourself no In Your Lifetime: Have you ever done anything, started to do anything, or prepared to do anything to end your life no Pierre Fall Scale Screening Has the patient fallen before (or is the patient in the ED as a result of a fall) has had a fall Does the patient have an impaired gait does not have impaired gait Is the patient cognitively impaired not cognitively impaired Pierre Fall Scale History of falling (immediate or previous) yes (25) Secondary Diagnosis yes (15) Intravenous Therapy/ Heparin/Saline Lock no (0) Gait/Transferring normal/bedrest/wheelchair (0) Ambulatory Aids none/bedrest/nurse assist (0) Mental Status oriented to own ability (0) Pierre Fall Risk Score: 40 Interventions: Pierre Fall Interventions: MODERATE INTERVENTIONS: *Low Interventions Plus: * falls risk band/sticker applied to patient, *yellow non-skid footwear, *instruct to call for assistance before getting out of bed, *bed/chair/bedside commode/toilet alarms, *sensory devices/ambulatory aides available and in reach, *medications reviewed for potential side effects and care planning. TRAVEL HISTORY Travel History Coronavirus Screening: no exposure or symptoms Travel Exposure History: NO travel to International locations in the past 30 days PAIN Pain Scale Used: OTILIO Pain Rating (0-10): 4 = Moderate Past Medical History: Past Medical History Reviewedyes Electronic Signatures: Lulú Barlow (RN) (Signed 17-Apr-2022 14:24) Entered: Risk Screens, Pain, Travel History, Chart Review, Scores, Past Medical History Authored: Quick Triage, Risk Screens, Pain, Travel History, Chart Review, Scores, Past Medical History Last Updated: 17-Apr-2022 14:24 by Lulú Barlow (RN) [facility] Established Visit (Orthopaed ic Surgery)on 04-02-2022 Established Visit (Orthopaedic Surgery) Diagnoses/Problems Assessed Left shoulder pain (719.41) (M25.512) Tendinitis of left rotator cuff (726.10) (M75.82) Orders Left shoulder pain, Tendinitis of left rotator cuff Administered: Triamcinolone Acetonide 40 MG/ML Injection Suspension Patient Discussion/Summary Discussion today reviewed continue using prescription medications as previously ordered, ibuprofen on as needed basis for pain and inflammation. Reviewed use of topical products for symptom control. Patient was encouraged to resume home exercises and stretching in approximately 3 days and gradually increase as tolerated. I reviewed adverse effects of repetitive shoulder injections with further wear down of existing cartilage. I did encourage the patient to pursue the previous referral to a shoulder specialist for second opinion. I did discuss that our doctor, Dr. Thompson is leaving the practice and I would like the patient to have a surgical evaluation and recommendations whether that be conservative and/or surgical potentials and patient declines further PT as she is satisfied with current progression and control with cortisone injection and home-based program. Plan will be to follow-up here in 3 months for reevaluation, sooner for changes or concerns. Provider Impressions Left shoulder pain, suspect rotator cuff tendinopathy, adhesive capsulitis Chief Complaint L SHOULDER F/U PAIN - POSITIONAL ROM 0 % NO PHYSICAL THERAPY INJECTION REQUEST History of Present Illness Agree with CC as documented per MA. Tennille is a 57-year-old female requesting cortisone injection of her left shoulder today. Patient had previously had an appointment scheduled for March 05, 2022, but was unable to attend, life got in the way. Patient does use ibuprofen on a as needed basis as well as Tylenol for symptom control with a lessened effect over time. Patient states her range of motion and pain is progressively worse over the last month. Pain is extending from the shoulder into the posterior upper trap and upper back. She states this was significantly improved after the cortisone injection she previously received. She did attend some physical therapy and is doing the home exercises as tolerated. Patient has not followed up for surgical referral due to complications after knee replacement that created significant alterations in lifestyle. Patient also has multiple social determinants of health that are affecting what care she is pursuing at this time. She is tentatively losing the place where she is living as well as concern for loss of income but she is in the process of juggling. Review of Systems Constitutional: no fever, no chills, not feeling tired and not feeling poorly. Eyes: no eyesight problems. ENT: no recent cough or URI sx, but no nosebleeds. Cardiovascular: no chest pain. Respiratory: no shortness of breath and no cough. Gastrointestinal: no abdominal pain, no nausea, no vomiting and no diarrhea. The patient presents with complaints of left shoulder arthralgias. Integumentary: no rashes and no skin wound. Neurological: no headache. Psychiatric: no depression and no sleep disturbances. Endocrine: no muscle weakness and no muscle cramps. Hematologic/Lymphatic: no swollen glands and no tendency for easy bruising. 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) Hospital discharge follow-up (V67.59) (Z09) Hyperlipidemia (272.4) (E78.5) Hypothyroidism (244.9) (E03.9) ILD (interstitial lung disease) (515) (J84.9) Insomnia (780.52) (G47.00) Left knee pain (719.46) (M25.562) Left shoulder pain (719.41) (M25.512) Medicare annual wellness visit, subsequent (V70.0) (Z00.00) Nausea in adult (787.02) (R11.0) Osteoporosis (733.00) (M81.0) 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) Preop examination (V72.84) (Z01.818) Raynauds disease (443.0) (I73.00) Restless leg syndrome (333.94) (G25.81) Right knee pain (719.46) (M25.561) Scleroderma (710.1) (M34.9) Shingles (053.9) (B02.9) Shortness of breath on exertion (786.05) (R06.02) Skin lesion of chest wall (709.9) (L98.9) Sore throat (462) (J02.9) Tendinitis of left rotator cuff (726.10) (M75.82) Past Medical History Problems History of Hospital discharge follow-up (V67.59) (Z09) Resolved Date: 12 Mar 2021 Surgical History Problems History of Appendectomy History of Cystocele repair History of Finger amputation History of Hip replacement History of Hysterectomy vaginal History of Knee replacement 02/04/ (more content not included)... Normal [facility] Tobacco Screening.on 022 Fall risk assessment a) No falls within the last year [facility] 300 Work Phone: Tobacco use status [facility] b) [facility] Work Phone: Therapy Communicationon 03-04 Therapy Communication Message TENNILLE ORTIZ was (D/C)- last seen: 02/01/2022. Pt was last seen in PT on 02/01/2022 and her POC is . Pt will be DC'd at this time via non-visit DC. Signatures Electronically signed by : Delta Enrique, PT; Mar 18 2022 4:30PM EST (Author) [facility] - Molecular patho logyon 03-12-2022 Noninvasive colorectal cancer DNA and occult blood screening Jamie (Stl) [Interp] Cancelled - Order -[facility] Work Phone: Medicare Annual Wellness Vis iton 02-16-2022 Medicare Annual Wellness Visit *Chief Complaint Medicare wellness/med refills - past due for a mammogram History of Present Illness The patient is being seen for the subsequent annual wellness visit. Past Medical, Surgical and Family History: reviewed and updated in chart. Medications and Supplements: Review of all medications by a prescribing practitioner or clinical pharmacist (such as prescriptions, OTCs, herbal therapies and supplements) documented in the medical record. No, the patient is not using opioids. Patient Self Assessment of Health Status: good. Tobacco use: Non-User Alcohol use: Non-User Illicit drug use: Non-User Current diet: unhealthy diet, does not consume adequate fluids and does consume caffeine. Exercise Frequency: infrequently. Depression/Suicide Screening: Patient has a current diagnosis of depression . During the past 2 weeks, the patient has not felt down, depressed or hopeless. During the past 2 weeks, the patient has not felt little interest or pleasure in doing things. Hearing Impairment: none. Cognitive Impairment: No cognitive impairment observed. Bathing: performs independently. Dressing: performs independently. Walking: performs independently. Toileting: performs independently. Feeding: performs independently. Personal Hygiene: performs independently. Bowels: continent. Bladder: occasional accident. Managing Finances: performs independently. Shopping: needs assistance. Managing Medications: needs assistance. Housework / Basic Home Maintenance: performs independently. Handling Transportation: needs assistance. Preparing Meals: performs independently. Using the Telephone/ Communication Devices: performs independently. Falls Risk Screening:. TENNILLE has not fallen in the last 6 months. Advance directives:. Advanced Care Planning discussed and documented advance care plan or surrogate decision maker documented in the medical record. Patient has living will. Patient has healthcare POA. Tennille is a 57 yo female here today fro annual Medicare wellness, she denies any change in medical History, no new hospitalization or surgeries. She does report left shoulder degeneration, completed PT, follow with Evelyn Murray currently, she will be getting should injection on 03/05/22 Requesting disability placbibi today. declines Mammogram has Cologaurd kit at home Review of Systems Constitutional: not feeling poorly and no fever. ENT: no hearing loss. Cardiovascular: no chest pain, no tightness or heavy pressure, no shortness of breath and no lower extremity edema. Respiratory: chronic cough, but no wheezing that is consistent with asthma and no shortness of breath during exertion. Gastrointestinal: no change in bowel habits, no diarrhea, no constipation, no nausea, no vomiting and no abdominal pain. Genitourinary: incontinence, but no urinary frequency and no dysuria. Musculoskeletal: arthralgias, back pain and myalgias, but no joint stiffness. Skin: no rashes and no change in skin color and pigmentation. Neurological: no headaches, no dizziness, no tingling and no numbness. Psychiatric: no confusion, no depression and no anxiety. Hematologic/Lymphatic: does not bleed easily and does not bruise easily. 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) Hospital discharge follow-up (V67.59) (Z09) Hyperlipidemia (272.4) (E78.5) Hypothyroidism (244.9) (E03.9) ILD (interstitial lung disease) (515) (J84.9) Insomnia (780.52) (G47.00) Left knee pain (719.46) (M25.562) Left shoulder pain (719.41) (M25.512) Medicare annual wellness visit, subsequent (V70.0) (Z00.00) Nausea in adult (787.02) (R11.0) Osteoporosis (733.00) (M81.0) 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) Preop examination (V72.84) (Z01.818) Raynauds disease (443.0) (I73.00) Restless leg syndrome (333.94) (G25.81) Right knee pain (719.46) (M25.561) Scleroderma (710.1) (M34.9) Shingles (053.9) (B02.9) Shortness of breath on exertion (786.05) (R06.02) Skin lesion of chest wall (709.9) (L98.9) Sore throat (462) (J02.9) Tendinitis of left rotator cuff (726.10) (M75.82) Past Medical History History of Hospital discharge follow-up (V67.59) (Z09) Resolved Date: 12 Mar 2021 Surgical History History of Appendectomy History of Cystocele repair History of Finger amputation History of Hip replacement History of Hysterectomy vaginal History of Knee replacement 02/04/21 Right knee History of Tracheostomy History of Tubal ligation Family (more content not included)... 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 Reviewed multiple topical preparations for symptom control as well as ice or heat for symptom relief. I did recommend the shoulder specialist evaluation for best long-term treatment plan, this was entered at the last visit and the patient has not yet pursued. Plan will be to follow-up here at that and completion of PT, sooner for changes or concerns. She is agreeable with this plan of care. This note was generated using [employer] software. It may contain errors in wording, punctuation or spelling. Impression: left shoulder pain, left rotator cuff tendonitis and left shoulder impingement syndrome. Currently, the condition is Patient symptoms are moderate in intensity, improved with PT and cortisone inj. The differential diagnosis includes shoulder sprain, rotator cuff tendonitis, impingement syndrome, rotator cuff tear, adhesive capsulitis and cervical radiculopathy. Patient may continue OTC ibuprofen up to 3 times daily with food or snack as well as Tylenol 650 mg per dose every 4-6 hours. Counseled on routine dosing of her sertraline to avoid sudden and/or severe changes in mood and affect with sporadic dosing. Treatment plan includes activity modification, range of motion exercises, physical therapy and corticosteroid injection. Patient discussion: discussed with the patient, discussed with the patient's family. Provider Impressions Left shoulder pain, suspect rotator cuff tendinopathy, adhesive capsulitis improving Chief Complaint Review and discussion of MRI of the left shoulder findings from 01/26/2022. History of Present Illness Agree with CC as documented per ROSSY. Tennille is a pleasant 57-year-old female following up for MRI finding results. Patient has been attending PT and is tolerated well, she does believe range of motion and strength is improved, continues with fairly good relief from cortisone injection from prior visit. Patient is doing home exercises at home with improved ability. Review of Systems Constitutional: feeling poorly, but no fever, no chills and not feeling tired. Eyes: no eyesight problems. ENT: no recent cough or URI sx, but no nosebleeds. Cardiovascular: no chest pain. Respiratory: no shortness of breath and no cough. Gastrointestinal: no abdominal pain, no nausea, no vomiting and no diarrhea. The patient presents with complaints of left shoulder arthralgias. Integumentary: no rashes and no skin wound. Neurological: no headache. Psychiatric: no depression and no sleep disturbances. Endocrine: no muscle weakness and no muscle cramps. Hematologic/Lymphatic: no swollen glands and no tendency for easy bruising. 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) Osteoporosis (733.00) (M81.0) ILD (interstitial lung disease) (515) (J84.9) Chronic bronchitis with acute exacerbation (466.0) (J20.9) Colon cancer screening (V76.51) (Z12.11) Medicare annual wellness visit, subsequent (V70.0) (Z00.00) Left shoulder pain (719.41) (M25.512) Tendinitis of left rotator cuff (726.10) (M75.82) Past Medical History Problems History of Hospital discharge follow-up (V67.59) (Z09) Resolved Date: 12 Mar 2021 Surgical History Problems History of Appendectomy History of Cystocele repair History of Finger amputation History of Hip replacement History of Hysterectomy vaginal History of Knee replacement 02/04/21 Right knee History of Tracheostomy History of Tubal ligation Family History Mother Family history of coronary artery disease (V17.3) (Z82.49) Father Family history of Cerebrovascular accident (CVA) due to other mechanism Family history of acute myocardial infarction (V17.3) (Z82.49) (more content not included)... 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 LTG's: 1) Improve L shoulder strength from 3-/5 flex/abd, and 3+ ER/IR to >= 4-/5 throughout in order to facilitate ability to reach overhead and lift objects. 4-6 weeks 2) Improve L shoulder PROM from 100 deg flex, 90 deg abd, 45 deg ER and 40 deg IR to >= 130 deg flex/abd and 75 deg ER/IR in order to better reach overhead or behind back. 4-6 weeks 3) Improve L shoulder pain from 9/10 to <= 3/10 with movement and activity in order to improve QOL. 4-6 weeks 4) Improve quick dash score by >= 5 points in order to improve QOL. 4-6 weeks 5) The pt will improve ability to raise arm/shoulder overhead, reach at various angles, lift/carry objects, dress upper body, overhead activity and use L arm for ADL's without significant limitation. 4-[address]) Pt/caregiver will be I and consistent with HEP with use of handout as needed in order to maximize shoulder strength and ROM/flexibility. 2-3 weeks Planned interventions include: education/instruction, home program, manual therapy, therapeutic activities and therapeutic exercises. Frequency and duration: 2 time(s) a week, for 4 weeks, for 8 visits. Potential to achieve rehab goals is fair: Continue to progress with L shoulder strength, and ROM/flexibility as able in order to be able to move and use her L shoulder more freely. Progress with POC, as tolerated. Assessment PT had good overall tolerance to PROM and ex's completed today but has a lot of pain and discomfort with use of L arm with activity. Response to treatment: improved joint mobility/ROM, improved strength and improved flexibility. Adult Risk Screening There are no spiritual/cultural practices/values/needs that are important to know Initial Fall Risk Screening: TENNILLE has not fallen in the last 6 months. TENNILLE does not have a fear of falling. She does not need assistance with sitting, standing or walking. Does not need assistance walking in her home. She does not need assistance in an unfamiliar setting. The patient is not using an assistive device. Pain Scale: On a scale of 0 to 10, the patient rates the pain at 2. Please identify location of pain: L shoulder (pain range 1-9/10 with use of the shoulder). Pain Quality: aching and tightness. The pain makes it hard for the patient to do these things: house work. Depression/Suicide Screening: During the past 2 weeks, the patient has not felt down, depressed or hopeless. During the past 2 weeks, the patient felt little interest or pleasure in doing things. 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 Pt reports that her L shoulder is still very sore with movement and activity. Pt reports that she just got an MRI done on her shoulder and is to follow up with her MD tomorrow. Home program performing as directed: Yes. Precautions: Fall Risk: none Polymyositis, scleroderma. Treatment Time in clinic started at 10:48 am Time in clinic ended at 11:15 am Total time in clinic is 27 minutes. Total timed code time is 25 minutes. Therapeutic exercise (73153): timed minutes 15 . Shoulder Iso x15 5? hold -Flexion -ext -abd -add AAROM with R UE assisting L x15 X -Flex,ER,abduction X Supine AND seated scap retraction x15 5? hold SA Punch with modA to maintain UE at 90 degrees flexion x10 X Shoulder shrugs x15 seated Shoulder circles x15 ea Fwd/Bkwd . Manual Therapy (14097): timed minutes 10, units 1 . L shoulder PROM all directions 10 min. Provided today: education . 01/07/22 [id number] Provided and reviewed with patient she verbalized good understanding. 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 LTG's: 1) Improve L shoulder strength from 3-/5 flex/abd, and 3+ ER/IR to >= 4-/5 throughout in order to facilitate ability to reach overhead and lift objects. 4-6 weeks 2) Improve L shoulder PROM from 100 deg flex, 90 deg abd, 45 deg ER and 40 deg IR to >= 130 deg flex/abd and 75 deg ER/IR in order to better reach overhead or behind back. 4-6 weeks 3) Improve L shoulder pain from 9/10 to <= 3/10 with movement and activity in order to improve QOL. 4-6 weeks 4) Improve quick dash score by >= 5 points in order to improve QOL. 4-6 weeks 5) The pt will improve ability to raise arm/shoulder overhead, reach at various angles, lift/carry objects, dress upper body, overhead activity and use L arm for ADL's without significant limitation. 4-[address]) Pt/caregiver will be I and consistent with HEP with use of handout as needed in order to maximize shoulder strength and ROM/flexibility. 2-3 weeks Planned interventions include: education/instruction, home program, manual therapy, therapeutic activities and therapeutic exercises. Frequency and duration: 2 time(s) a week, for 4 weeks, for 8 visits. Potential to achieve rehab goals is fair: will continue to work on progressing toward plan of care as tolerated to be able to raise LUE overhead with little to no difficulty. Assessment Patient identified by name and Patient maxo's pain throughout session with PROM and AAROM. Patient randee's increased pain with descending LUE with PROM flexion with increased catching at approx. 90 degrees. Patient demo's firm end feel and end range and demo's difficulty with isometrics this date. Demo's improvements in tolerance of exercises throughout session. Response to treatment: increased pain. Adult Risk Screening There are no spiritual/cultural practices/values/needs that are important to know Initial Fall Risk Screening: TENNILLE has not fallen in the last 6 months. TENNILLE does not have a fear of falling. She does not need assistance with sitting, standing or walking. Does not need assistance walking in her home. She does not need assistance in an unfamiliar setting. The patient is not using an assistive device. Please identify location of pain: L shoulder (pain range 1-9/10 with use of the shoulder). Pain Quality: aching and tightness. The pain makes it hard for the patient to do these things: house work. Depression/Suicide Screening: During the past 2 weeks, the patient has not felt down, depressed or hopeless. During the past 2 weeks, the patient felt little interest or pleasure in doing things. 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 Patient reports having no pain at rest, but when she is moving it rates pain 3/10. States that she has been pushing through her pain to be able to get chores done at home. States that she was cleaning up her craft table yesterday and had difficulty lifting her LUE up but was able to complete what she wanted to do. States that she took ibuprofen prior to treatment. States she had a MRI the other day and is pending results. Precautions: Fall Risk: none Polymyositis, scleroderma. Treatment Time in clinic started at 1046 am Time in clinic ended at 1130 am Total time in clinic is 44 minutes. Total timed code time is 41 minutes. Therapeutic exercise (19695): timed minutes 26, units 2 . Shoulder Iso x15 5? hold -Flexion -ext -abd -add AAROM with R UE assisting L x15 -Flex,ER,abduction Supine AND seated scap retraction x15 5? hold SA Punch with modA to maintain UE at 90 degrees flexion x10 Shoulder shrugs x15 seated Shoulder circles x15 ea Fwd/Bkwd . Manual Therapy (63656): timed minutes 15, units 1 . PROM all directions. Provided today: education . 01/07/22 [id number] Provided and reviewed with patient she verbalized good understanding. 'Scores and Scales' Signatures Electronically signed by : Evelyn Harris PTA; Jan 28 2022 12:40PM EST (Author) Electronically signed by : Delta Enrique PT; Feb 01 2022 5:03PM EST [facility] [employer] MRI SHOULDER W/O CONTRAST on 01-26-2022 MRI SHOULDER W/O CONTRAST Patient Name: TENNILLE ORTIZ STUDY: MRI of the Left shoulder without intravenous contrast date 01/26/2022. INDICATION: increased pain, popping and limited ROM M25.512: Left shoulder pain M21.829: Hill Sachs deformity M75.82: Tendinitis of left rotator cuff COMPARISON: None. ACCESSION NUMBER(S): [id number] ORDERING CLINICIAN: EVELYN MURRAY TECHNIQUE: Multiplanar multisequence MRI of the Left shoulder was performed without intra-articular or intravenous contrast. FINDINGS: MUSCLES AND TENDONS: There is thinning of the supraspinatus and infraspinatus tendons which decreases sensitivity for assessment of tendon tearing. No obvious full-thickness tear is evident. The teres minor tendon is intact. There is thinning the subscapularis tendon but it it is likely intact. The tendon of the long head of the biceps is torn and the tendon is protracted into the proximal arm. There is overall severe generalized atrophy in the visualized musculature including the rotator cuff muscles. No mass is evident and the suprascapular or spinoglenoid notch or the quadrangular space. OSSEOUS STRUCTURES AND JOINTS: There is severe glenohumeral degenerative change with essentially complete loss of hyaline articular cartilage in the glenoid fossa and on the humeral head. There is increased T2 signal intensity within the glenoid bone stock and the central humeral head without macrotrabecular fracture line evident. There is global degenerative tearing of the glenoid labrum. There is possibly some mild concavity to the inferior central humeral head. There is mild acromioclavicular joint degenerative change. The acromion is type 1 in morphology without significant lateral downsloping. Cystic changes are seen in the greater tubercle of the humerus. There is a small volume glenohumeral joint effusion. SOFT TISSUES: There is no significant volume of fluid in the subacromial subdeltoid bursa. There is no significant volume of fluid in the subcoracoid bursa. Associated soft tissues of the shoulder are grossly unremarkable. IMPRESSION: 1. Severe glenohumeral degenerative change with reactive marrow changes in the glenoid fossa and appositional humeral head. 2. Thinning with diminutive appearance to the rotator cuff tendons without full-thickness tear evident. Undersurface tearing particularly of the distal to insertional supraspinatus tendon is not excluded. 3. The tendon of the long head of the biceps appears to be torn and protracted into the arm. 4. Small volume glenohumeral joint effusion. 5. Mild acromioclavicular joint degenerative change. 6. Possible mild concavity to the central lower humeral head which could relate to prior Hill-Sachs impaction deformity although the appearance may also be projectional. 7. Severe atrophy of the musculature about the shoulder Electronically signed by: CHRIS HARRISON MD Normal [facility] MRI Shoulder without Contras ton 01-26-2022 MR Shoulder WO contrast [facility] Work Phone: Therapy Communicationon - Therapy Communication Message TENNILLE ORTIZ canceled today . Patient cancelled today's appointment. Signatures Electronically signed by : Alexus Dao PTA; Jan 25 2022 10:17AM EST (Author) [facility] PT Progress Noteon 2 PT Progress Note No report was sent [facility] Therapy Communicationon 01-02 Therapy Communication Message TENNILLE ORTIZ no showed today 01/21/22. Patient no call, no show, unable to leave . 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 LTG's: 1) Improve L shoulder strength from 3-/5 flex/abd, and 3+ ER/IR to >= 4-/5 throughout in order to facilitate ability to reach overhead and lift objects. 4-6 weeks 2) Improve L shoulder PROM from 100 deg flex, 90 deg abd, 45 deg ER and 40 deg IR to >= 130 deg flex/abd and 75 deg ER/IR in order to better reach overhead or behind back. 4-6 weeks 3) Improve L shoulder pain from 9/10 to <= 3/10 with movement and activity in order to improve QOL. 4-6 weeks 4) Improve quick dash score by >= 5 points in order to improve QOL. 4-6 weeks 5) The pt will improve ability to raise arm/shoulder overhead, reach at various angles, lift/carry objects, dress upper body, overhead activity and use L arm for ADL's without significant limitation. 4-[address]) Pt/caregiver will be I and consistent with HEP with use of handout as needed in order to maximize shoulder strength and ROM/flexibility. 2-3 weeks Planned interventions include: education/instruction, home program, manual therapy, therapeutic activities and therapeutic exercises. Frequency and duration: 2 time(s) a week, for 4 weeks, for 8 visits. Potential to achieve rehab goals is fair: Continue to progress with L shoulder strength, ROM/flexibility in order to facilitate improvement movement/mobility of the L shoulder. Progress with POC, as tolerated. Assessment .Pt has pain with ex's and PROM but tolerable per pt. PROM 115 deg flex, 110 deg abd, 55 deg ER and 50 deg IR. Response to treatment: improved joint mobility/ROM, improved strength and improved flexibility. Patient was able to complete today's treatment with some difficulty. Adult Risk Screening There are no spiritual/cultural practices/values/needs that are important to know Initial Fall Risk Screening: TENNILLE has not fallen in the last 6 months. TENNILLE does not have a fear of falling. She does not need assistance with sitting, standing or walking. Does not need assistance walking in her home. She does not need assistance in an unfamiliar setting. The patient is not using an assistive device. Pain Scale: On a scale of 0 to 10, the patient rates the pain at 1. Please identify location of pain: L shoulder (pain range 1-9/10 with use of the shoulder). Pain Quality: aching and tightness. The pain makes it hard for the patient to do these things: house work. Depression/Suicide Screening: During the past 2 weeks, the patient has not felt down, depressed or hopeless. During the past 2 weeks, the patient felt little interest or pleasure in doing things. 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 The pt reports that her L shoulder has felt pretty good over the last couple days. Home program performing as directed: Yes. Precautions: Fall Risk: none Polymyositis, scleroderma. Treatment Time in clinic started at 10:50 am Time in clinic ended at 11:30 am Total time in clinic is 40 minutes. Total timed code time is 38 minutes. Therapeutic exercise (07178): timed minutes 25, units 2 . Shoulder Iso x15 2? hold -Flexion -ext -abd -add AAROM with R UE assisting L x15 -Flex,ER,abduction Supine AND seated scap retraction x15 2-3? hold SA Punch with modA to maintain UE at 90 degrees flexion x10 Shoulder shrugs x15 seated Shoulder circles x10 ea Fwd/Bkwd . Manual Therapy (53682): timed minutes 13, units 1 . PROM all directions. Provided today: education . 01/07/22 [id number] Provided and reviewed with patient she verbalized good understanding. 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 : No Is the patient or breast feeding? : No What are the patient's signs and symptoms? : increased pain, popping and limited ROM Left shoulder pain, Tendinitis of left rotator cuff Start: predniSONE 10 MG Oral Tablet; Take 4 tablets (40mg) today, then 3 tabs daily for 3 days, then 2 tablets daily for 3 days, then 1 tablet daily for 3 days Patient Discussion/Summary Patient to continue pendulums, X's and O's and HEP as recommended by PT as tolerated. We discussed befits of MRI for further diagnostics, pt wished to pursue further imaging and is interested in further treatment at this time, not interested in large surgical repair or replacement but open to improvement in ROM and pain control. Plan to f/u here after MRI, sooner for changes or concerns. A referral is being placed for ortho shoulder specialist eval to review best course of treatment. Reviewed propping and positioning, a short Prednisone taper rx was sent to pharmacy of choice and reviewed taper and to resume routine daily dose the day after completing the taper. Verbalizes understanding and in agreement with plan of care. This note was generated using [employer] software. It may contain errors in wording, punctuation or spelling. Impression: left shoulder pain, left rotator cuff tendonitis and left shoulder impingement syndrome. Currently, the condition is Patient symptoms are moderate to severe in intensity, continuous to some extent. The differential diagnosis includes shoulder sprain, rotator cuff tendonitis, impingement syndrome, rotator cuff tear, adhesive capsulitis and cervical radiculopathy. Patient may continue OTC ibuprofen up to 3 times daily with food or snack as well as Tylenol 650 mg per dose every 4-6 hours. Counseled on routine dosing of her sertraline to avoid sudden and/or severe changes in mood and affect with sporadic dosing. Treatment plan includes activity modification, range of motion exercises, physical therapy and corticosteroid injection. Patient discussion: discussed with the patient, discussed with the patient's family. Provider Impressions Acute left shoulder pain, suspect rotator cuff tendinopathy, adhesive capsulitis imporving Chief Complaint Follow-up) for re-evaluation of left shoulder pain (adhesive capsulitis) as she was previously seen in office in 12/2021 in which a corticosteroid injection was administered into the left shoulder and a referral to PT made. She states the first two PT sessions went well and she believes the corticosteroid injection overall reduced her pain. However, she did overhead reach on Tuesday causing increased pain of the lateral deltoid region of her arm. She continues to have the pain and discomfort at this time, especially with abduction and FE. History of Present Illness Agree with CC as documented per MA. Follow-up of left shoulder pain and limited range of motion. She does state the cortisone injection from last visit was helping improve symptoms, she attended a couple sessions of PT. Patient was reaching up over head to pick something up and felt a sharp pain as noted in CC. She continues to have increased pain and feels her range of motion is decreased from her last therapy visit. She is on routine dose of prednisone and has not attempted a burst or taper. Patient states she has difficulty applying ice to the area where she is sore. Denies any numbness or tingling of the arm. Review of Systems Constitutional: feeling poorly, but no fever, no chills and not feeling tired. Eyes: no eyesight problems. ENT: no recent cough or URI sx, but no nosebleeds. Cardiovascular: no chest pain. Respiratory: no shortness of breath and no cough. Gastrointestinal: no abdominal pain, no nausea, no vomiting and no diarrhea. The patient presents with complaints of left shoulder arthralgias. Integumentary: no rashes and no skin wound. Neurological: no headache. Psychiatric: no depression and no sleep disturbances. Endocrine: no muscle weakness and no muscle cramps. Hematologic/Lymphatic: no swollen glands and no tendency for easy bruising. Active Problems Problems Adhesive capsulitis of left shoulder (726.0) (M75.02) Anemia (285.9) (D64.9) Anxiety and depression (300.00,311) (F41.9,F32.A) Asthma (493.90) (J45.909) Chronic bronchitis (491.9) (J42) Chronic bronchitis with acute exacerbation (466.0,491.9) (J20.9,J42) Colon (more content not included)... 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 LTG's: 1) Improve L shoulder strength from 3-/5 flex/abd, and 3+ ER/IR to >= 4-/5 throughout in order to facilitate ability to reach overhead and lift objects. 4-6 weeks 2) Improve L shoulder PROM from 100 deg flex, 90 deg abd, 45 deg ER and 40 deg IR to >= 130 deg flex/abd and 75 deg ER/IR in order to better reach overhead or behind back. 4-6 weeks 3) Improve L shoulder pain from 9/10 to <= 3/10 with movement and activity in order to improve QOL. 4-6 weeks 4) Improve quick dash score by >= 5 points in order to improve QOL. 4-6 weeks 5) The pt will improve ability to raise arm/shoulder overhead, reach at various angles, lift/carry objects, dress upper body, overhead activity and use L arm for ADL's without significant limitation. 4-[address]) Pt/caregiver will be I and consistent with HEP with use of handout as needed in order to maximize shoulder strength and ROM/flexibility. 2-3 weeks Planned interventions include: education/instruction, home program, manual therapy, therapeutic activities and therapeutic exercises. Frequency and duration: 2 time(s) a week, for 4 weeks, for 8 visits. Potential to achieve rehab goals is fair: will continue to work on progressing toward plan of care as tolerated to be able to lift UE with little to no difficulty. Assessment Patient identified by name and Patient randee's difficulty with exacerbation of symptoms during treatment. Patient maxo's fair tolerance to isometrics. Patient maxo's difficulty with raising LUE to 90 requiring other UE to assist with raising and lowering. Tolerates shoulder shrugs with no exacerbation of symptoms. Adult Risk Screening There are no spiritual/cultural practices/values/needs that are important to know Initial Fall Risk Screening: TENNILLE has not fallen in the last 6 months. TENNILLE does not have a fear of falling. She does not need assistance with sitting, standing or walking. Does not need assistance walking in her home. She does not need assistance in an unfamiliar setting. The patient is not using an assistive device. Pain Scale: On a scale of 0 to 10, the patient rates the pain at 3. Please identify location of pain: L shoulder (pain range 1-9/10 with use of the shoulder). Pain Quality: aching and tightness. The pain makes it hard for the patient to do these things: house work. Depression/Suicide Screening: During the past 2 weeks, the patient has not felt down, depressed or hopeless. During the past 2 weeks, the patient felt little interest or pleasure in doing things. 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 Patient states pain in L shoulder is a 3 today if it's not moving. States that when its moving it could be a 10+. Patient states that her shoulder is a lot more painful today because she went to put her phone on a shelf last night and lifted her LUE up higher than normal and states that it is more tender today. Precautions: Fall Risk: none Polymyositis, scleroderma. Treatment Time in clinic started at 1002 am Time in clinic ended at 1045 am Total time in clinic is 43 minutes. Total timed code time is 40 minutes. Therapeutic exercise (50323): timed minutes 24, units 2 . Shoulder Iso x10 5? hold (N) -Flexion -ext -abd -add AAROM with R UE assisting L x10 -Flex,ER,abduction Supine AND seated scap retraction x10 5? hold SA Punch with modA to maintain UE at 90 degrees flexion x10 Shoulder shrugs x10 seated Shoulder circles x10 Fwd/Bkwd (N) . Manual Therapy (25630): timed minutes 16, units 1 . PROM all directions. Provided today: education . 01/07/22 [id number] Provided and reviewed with patient she verbalized good understanding. 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 LTG's: 1) Improve L shoulder strength from 3-/5 flex/abd, and 3+ ER/IR to >= 4-/5 throughout in order to facilitate ability to reach overhead and lift objects. 4-6 weeks 2) Improve L shoulder PROM from 100 deg flex, 90 deg abd, 45 deg ER and 40 deg IR to >= 130 deg flex/abd and 75 deg ER/IR in order to better reach overhead or behind back. 4-6 weeks 3) Improve L shoulder pain from 9/10 to <= 3/10 with movement and activity in order to improve QOL. 4-6 weeks 4) Improve quick dash score by >= 5 points in order to improve QOL. 4-6 weeks 5) The pt will improve ability to raise arm/shoulder overhead, reach at various angles, lift/carry objects, dress upper body, overhead activity and use L arm for ADL's without significant limitation. 4-[address]) Pt/caregiver will be I and consistent with HEP with use of handout as needed in order to maximize shoulder strength and ROM/flexibility. 2-3 weeks Planned interventions include: education/instruction, home program, manual therapy, therapeutic activities and therapeutic exercises. Frequency and duration: 2 time(s) a week, for 4 weeks, for 8 visits. Potential to achieve rehab goals is fair: Progress with ROM and strengthening as tolerates for increased ease with adl's. Progress with POC, as tolerated. Assessment Patient identified by name and date of . Patient demonstrated fair tolerance to strengthening with addition of isometrics. She presented with limited motion and required cues to relax with PROM. Adult Risk Screening There are no spiritual/cultural practices/values/needs that are important to know Initial Fall Risk Screening: TENNILLE has not fallen in the last 6 months. TENNILLE does not have a fear of falling. She does not need assistance with sitting, standing or walking. Does not need assistance walking in her home. She does not need assistance in an unfamiliar setting. The patient is not using an assistive device. Pain Scale: On a scale of 0 to 10, the patient rates the pain at 1. Please identify location of pain: L shoulder (pain range 1-9/10 with use of the shoulder). Pain Quality: aching and tightness. The pain makes it hard for the patient to do these things: house work. Depression/Suicide Screening: During the past 2 weeks, the patient has not felt down, depressed or hopeless. During the past 2 weeks, the patient felt little interest or pleasure in doing things. 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 Patient reported 1/10 pain after treatment. Home program performing as directed:. N/A. Precautions: Fall Risk: none Polymyositis, scleroderma. Treatment Time in clinic started at 09:54 Time in clinic ended at 10:36 Total time in clinic is 42 minutes. Total timed code time is 40 minutes. Therapeutic exercise (02235): timed minutes 24, units 2 . Shoulder Iso x10 3? hold (N) -Flexion -ext -abd -add AAROM with R UE assisting L (N) -Flex,ER Supine AND seated scap retraction x10 3? hold SA Punch with modA to maintain UE at 90 degrees flexion x10 (N) Shoulder shrugs x10 seated (N) . Manual Therapy (14294): timed minutes 16, units 1 . PROM all directions. Provided today: education . 01/07/22 [id number] Provided and reviewed with patient she verbalized good understanding. 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 LTG's: 1) Improve L shoulder strength from 3-/5 flex/abd, and 3+ ER/IR to >= 4-/5 throughout in order to facilitate ability to reach overhead and lift objects. 4-6 weeks 2) Improve L shoulder PROM from 100 deg flex, 90 deg abd, 45 deg ER and 40 deg IR to >= 130 deg flex/abd and 75 deg ER/IR in order to better reach overhead or behind back. 4-6 weeks 3) Improve L shoulder pain from 9/10 to <= 3/10 with movement and activity in order to improve QOL. 4-6 weeks 4) Improve quick dash score by >= 5 points in order to improve QOL. 4-6 weeks 5) The pt will improve ability to raise arm/shoulder overhead, reach at various angles, lift/carry objects, dress upper body, overhead activity and use L arm for ADL's without significant limitation. 4-[address]) Pt/caregiver will be I and consistent with HEP with use of handout as needed in order to maximize shoulder strength and ROM/flexibility. 2-3 weeks Planned interventions include: education/instruction, home program, manual therapy, therapeutic activities and therapeutic exercises. Frequency and duration: 2 time(s) a week, for 4 weeks, for 8 visits. Potential to achieve rehab goals is fair: Plan of care was developed with input and agreement by the patient. Assessment The pt presents with Medical Dx of L shoulder adh capuslitis, L shoulder hills sachs deformity, L shoulder pain. Pt presents with the following deficits: increased pain, decreased strength, ROM, flexibility, functional movement and use of L arm/shoulder. Pt would benefit from PT services in order to improve on these deficits and to maximize strength and ability for functional activity/mobility. Clinical Presentation: Evolving with changing characteristics. Problem List: activity limitations, ADLs/IADLs/self care skills, decreased knowledge of HEP, flexibility, range of motion/joint mobility and strength. Reason For Visit Initial Evaluation. Referred by: Evelyn Murray [employer]IESEL ENGINE MECHANIC Adult Risk Screening There are no spiritual/cultural practices/values/needs that are important to know Initial Fall Risk Screening: TENNILLE has not fallen in the last 6 months. Her fall did not result in injury. TENNILLE does not have a fear of falling. She does not need assistance with sitting, standing or walking. Does not need assistance walking in her home. She does not need assistance in an unfamiliar setting. The patient is not using an assistive device. Pain Scale: On a scale of 0 to 10, the patient rates the pain at 1. Please identify location of pain: L shoulder (pain range 1-9/10 with use of the shoulder). Pain Quality: aching and tightness. The pain makes it hard for the patient to do these things: house work. Depression/Suicide Screening: During the past 2 weeks, the patient has not felt down, depressed or hopeless. During the past 2 weeks, the patient felt little interest or pleasure in doing things. 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 Pt had a hospitalization in 02/2021 due to a staff infection after her L TKR and also due to PNA. The pt was being lifted to get her to the hospital and injured her L shoulder in the process. The pt that the shoulder pain has gotten a lot worse over the last 6 months. The pt had an injection on the L shoulder approx 3-4 weeks ago. The pt reports that it helped a little bit but that she still has severe pain with movement and any kind of use of her R arm/shoulder. The pt reports that lifting the arm and movement make the pain worse. Rest and ibuprofen help with the pain. Current Medical Management: diagnostic tests: x rays and medications for current condition: Had an injection 3-4 weeks ago. Precautions: Fall Risk: none Polymyositis, scleroderma. Functional Assessment Prior level of function: Pt is I with all ADL's and IADL's prior. Patient stated goal(s) for treatment include: relieving pain , increasing strength and reducing symptoms . To be able to use arm again and to decrease pain. Work Status: disabled. Current Status: worsening. Patient Awareness: Patient is aware of her diagnosis and prognosis. Living Environment: multi-story home and tub/shower combo . 2 flts of stairs with HR. Shower chair and grab bars. Social Support: lives alone. Personal Factors That May Impact Care:. None. Yellow Flags:. None. Objective Ortho Observation: FHP with rounded shoulders. Pt has multiple finger amputations. Palpation: Tender anterior L shoulder. Pt has hand/wrist contractures/deformity (more content not included)... 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 Currently, the condition is Patient symptoms are moderate to severe in intensity, continuous to some extent. The differential diagnosis includes shoulder sprain, rotator cuff tendonitis, impingement syndrome, rotator cuff tear, adhesive capsulitis and cervical radiculopathy. Patient may continue OTC ibuprofen up to 3 times daily with food or snack as well as Tylenol 650 mg per dose every 4-6 hours. Counseled on routine dosing of her sertraline to avoid sudden and/or severe changes in mood and affect with sporadic dosing. Treatment plan includes activity modification, range of motion exercises, physical therapy and corticosteroid injection. Patient discussion: discussed with the patient, discussed with the patient's family. We discussed conservative treatment options including cortisone injection, home exercises, formal therapy. Patient wishes to proceed with cortisone injection at today's visit. It was given as noted, patient was advised to allow for rest over the next 1 to 2 days and then begin gentle range of motion activities. Patient was instructed on pendulums as well as X's and O's as tolerated beginning on day 3. Plan will be for PT eval and treat to start in 2 weeks. Patient and family were updated that today's findings are very concerning for adhesive capsulitis in addition to the rotator cuff tendinitis. Regarding additional imaging, patient does not wish to pursue surgical intervention if not needed. At this time we will proceed with conservative measures if patient fails to get any symptom control or improved range of motion, we will review additional imaging at that time. Patient is in agreement with this plan of care. Patient to follow-up here in 3 to 4 weeks, sooner for changes or concerns. Patient and family are aware that this can be a slow recovery but the goal is to increase range of motion, pain control and return to near previous level of functioning. Patient also was discussing utilizing the sling, I advised her to DC use of sling as there is concern for adhesive capsulitis and allowing the arm to free hang will help strengthen supporting the muscles. Patient was instructed on propping and positioning. This note was generated using [employer] software. It may contain errors in wording, punctuation or spelling. Provider Impressions Acute left shoulder pain, suspect rotator cuff tendinopathy as well as adhesive capsulitis. Chief Complaint NEW) Referral from PCP Evaristo Du CNP for further evaluation and treatment of left shoulder pain. Onset: 02/2021. XR series of the left shoulder performed on 12/09/2021. She has some significant health issues at this time and she was reporting to the ED back in 02/2021 due to severe illness and someone assisting her felt a ''pop'' at her shoulder. She has since been symptomatic with pain and limited ROM of the shoulder due to pain. She states symptoms were more mild at first, lately have been more severe as she is unable to overhead ROM with the left arm due to pain. She denies any significant treatments to date. She denies any significant issues with the shoulder prior to Feb 2021 or surgical history. History of Present Illness Agree with CC as documented per ROSSY. Tennille is a 56-year-old female presenting today for left shoulder evaluation after being referred by her PCP patient reports left shoulder pain since February 2021. There was an extensive recovery status post right knee replacement. Patient states that she was unaware of her surroundings and hospitalized for 1 month post surgery. Her family did state that during 1 of these episodes, she was assisted with a position change and possibly dislocated her left shoulder. Patient denies any new injury. She states her symptoms are significantly worsening over the last few months. She is having increased pain with using it, this does correlate with attempts to increase activity since onset of symptoms in February. Patient states she has some degree of pain at all times, rates it severe and 8-10 out of 10 at the worst. Is painful to touch and popping, patient states the pain is worse with prolonged standing or changing positions. It is improved with rest and as needed ibuprofen. She feels like the joint is unstable, popping sensations and she cannot use her left arm as she could previously. Patient denies any prior treatments for this or similar episodes in the past. Patient is right-hand dominant. Patient states she do (more content not included)... Normal [employer] Tobacco Screening.on 022 Tobacco use status [facility] b) No [facility] [address] Work Phone: Office Visit (Family Kelby ash)on 12-09-2021 Follow-up visit Diagnoses/Problems Left shoulder pain (719.41) (I75.512) Orders Left shoulder pain Xray Shoulder Complete Min 2 Views; Status:Hold For - Scheduling; Requested for:09Dec2021; Laterality : Left Radiologist to Determine Optimal Study : Y What are the patient's signs and symptoms? : pain and decreased ROM Orthopedic - Shoulder Referral Evaluation and Treatment Evaluate AND Treat Status: Active Requested for: 09Dec2021 Provider Impressions Left shoulder pain: Will obtain shoulder Xray and refer to orthopedics for further evaluation and treatment. instructed to take Tylenol as needed for pain. Follow up as needed Chief Complaint Left shoulder - thinks she tore a rotator cuff last March - but recently it started causing a lot of issues since she has started feeling better and moving more. History of Present Illness Tennille is a 56 yo female here today with complaints of left shoulder pain. She reports injury in 02/2021 to left shoulder when being lifted/transferred from couch to car (carried). After this incident Patient was hospitalized for several weeks for PE and sepsis. Discharged home with home care and therapy. Pain has persisted to left shoulder. ROM is very limited. 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 Left shoulder pain 10/10 with movement, at rest pain 2/10, pain increases with any ROM Review of Systems Constitutional: no chills, no fever and no night sweats. Cardiovascular: no chest pain, no intermittent leg claudication, no lower extremity edema, no palpitations and no syncope. Respiratory: no cough, no shortness of breath during exertion, no shortness of breath at rest and no wheezing. Musculoskeletal: arthralgias, joint pain localized to one or more joints, joint stiffness and myalgias. Neurological: no difficulty walking, no headache, no limb weakness, no numbness and no tingling. Active Problems Anemia (285.9) (D64.9) Anxiety and depression (300.00,311) (F41.9,F32.A) Asthma (493.90) (J45.909) Chronic bronchitis (491.9) (J42) Chronic bronchitis with acute exacerbation (466.0,491.9) (J20.9,J42) Colon cancer screening (V76.51) (Z12.11) Cough (786.2) (R05.9) Encounter for immunization (V03.89) (Z23) Encounter for well woman exam (V72.31) (Z01.419) Fatigue (780.79) (R53.83) Headache (784.0) (R51.9) Hospital discharge follow-up (V67.59) (Z09) Hyperlipidemia (272.4) (E78.5) Hypothyroidism (244.9) (E03.9) ILD (interstitial lung disease) (515) (J84.9) Insomnia (780.52) (G47.00) Left knee pain (719.46) (M25.562) Medicare annual wellness visit, subsequent (V70.0) (Z00.00) Nausea in adult (787.02) (R11.0) Osteoporosis (733.00) (M81.0) 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) Preop examination (V72.84) (Z01.818) Raynauds disease (443.0) (I73.00) Restless leg syndrome (333.94) (G25.81) Right knee pain (719.46) (M25.561) Scleroderma (710.1) (M34.9) Shingles (053.9) (B02.9) Shortness of breath on exertion (786.05) (R06.02) Skin lesion of chest wall (709.9) (L98.9) Sore throat (462) (J02.9) Past Medical History History of Hospital discharge follow-up (V67.59) (Z09) Resolved Date: 12 Mar 2021 Surgical History History of Appendectomy History of Cystocele repair History of Finger amputation History of Hip replacement History of Hysterectomy vaginal History of Knee replacement 02/04/21 Right knee History of Tracheostomy History of Tubal ligation Family History Family history of coronary artery disease (V17.3) (Z82.49) Family history of Cerebrovascular accident (CVA) due to other mechanism Family history of acute myocardial infarction (V17.3) (Z82.49) Family history of diabetes mellitus (V18.0) (Z83.3) Social History Daily caffeine consumption Never a smoker No illicit drug use No recent foreign travel Occasional alcohol use Patient has living will (V49.89) (Z78.9) Allergies doxycycline Shortness of breath; Palpitations; Weakness; Recorded By: Aminah Carter; 07/18/2020 3:20:07 PM Penicillins Hives;; Recorded By: Aminah Carter; 07/18/2020 3:20:07 PM Aspirin TABS Unknown; Recorded By: Aminah Carter; 07/18/2020 3:20:07 PM Betadine Itching; Recorded By: Aminah Carter; 07/18/2020 3:20:07 PM ceftazidime Skin Irritation; Recorded By: Aminah Carter; 07/18/2020 3:20:07 PM clindamycin Skin Irritation; Recorded By: Aminah Carter; 07/18/2020 3:20:07 PM erythromycin Diarrhea; Recorded By: Aminah Carter; 07/18/2020 3:20:07 PM Current Meds Medication NameInstructionReason Sertraline HCl - 50 MG Oral TabletTAKE 3 TABLETS DAILYAnxiety and depression Albuterol Sulfate (2.5 MG/3ML) 0.083% Inhalation Nebulization SolutionAsthma Albuterol Sulfate HFA 108 (90 Base) MCG/ACT Inhalation Aerosol SolutionInhale 1-2 puffs every 4 hours as needed for cough, wheeze, or shortneAsthma Breo Ellipta 100-25 MCG/INH Inhalation Aerosol Powder Breath ActivatedINHALE (more content not included)... Normal [facility] Radiologyon 12-09-2021 XR Shoulder 2 Views Normal [facility] Work Phone: SHOULDER, CMPLT, MIN 2 VIEWS on 12-09-2021 SHOULDER, CMPLT, MIN 2 VIEWS Patient Name: TENNILLE ORTIZ STUDY: SHOULDER, CMPLT, MIN 2 VIEWS; Left; 12/09/2021 9:37 am INDICATION: pain and decreased ROM M25.512: Left shoulder pain. COMPARISON: None. ACCESSION NUMBER(S): [id number] ORDERING CLINICIAN: EVARISTO DU FINDINGS: LEFT SHOULDER AP AND Y-VIEWS A notch like defect is seen at the anteromedial aspect of the humeral head neck junction. This is suspicious for a reverse Hill-Sachs deformity. This will be better visualized on CT scanning. No acute fracture. No loose bodies. Narrowing of the glenohumeral joint is seen with degenerative changes. The AC joint is intact. IMPRESSION: No fracture. Possible reverse Hill-Sachs deformity. Electronically signed by: AMRIK PERDOMO MD Normal [facility] Tobacco Screening.on 022 Tobacco use status [facility] b) No -[facility] Work Phone: Laboratory - Molecular patho logyon 11-11-2021 Noninvasive colorectal cancer DNA and occult blood screening Jamie (Stl) [Interp] Cancelled - Duplicate Order [facility] Work Phone: Tobacco Screening.on 021 Fall risk assessment a) No falls within the last year [facility] Work Phone: Tobacco use status CP b) No -[facility] Work Phone: Radiologyon 05-06-2021 XR Wrist - bilateral 3 Views Normal [facility] Work Phone: Tobacco Screening.on 021 Tobacco use status [facility] b) No [facility] [address] DO Work Phone: Tobacco Screening.on 021 Fall risk assessment a) No falls within the last year [facility] Work Phone: Tobacco use status CP b) No -[facility] Work Phone: [phone] Tobacco Screening.on 021 Tobacco use status [facility] b) No [facility] [address] [facility] Work Phone: Tobacco Screening.on 021 Fall risk assessment a) No falls within the last year [facility] Work Phone: Tobacco use status [facility] b) No [facility] [address] [facility] Work Phone: Tobacco Screening.on 021 Tobacco use status [facility] b) No [facility] [address] DO Work Phone: CT Chest High Resolutionon 0 01-06-2021 CT Chest High Resolution Normal [facility] [address] DO Work Phone: Tobacco Screening.on 021 Tobacco use status [facility] b) No [facility] Work Phone: No Panel Informationon 12-10 No [facility] Work Phone: Yes [facility] Work Phone: 2 1 [facility] Work Phone: Comment on above: Snoring: NoTired: Ye sObserved: NoBlood Pressure: NoBMI: NoAge: YesNeck Circumference: NoGender: No Low Risk [facility] Work Phone: 0.4% [facility] Work Phone: Class I Risk [facility] Work Phone: 0 {Points} [facility] Work Phone: Tobacco Screening.on 021 Fall risk assessment a) No falls within the last year [facility] Work Phone: Tobacco use status [facility] b) No [facility] Work Phone: CT KNEE W/O CONTRAST RIGHTon 12-05-2020 CT KNEE W/O CONTRAST RIGHT ORIGINAL CT of the RIGHT knee without contrast Technique: Axial images of the knee are obtained with sagittal and coronal reconstructions. Limited axial imaging is also performed through the ipsilateral hip and ankle joints. This exam was performed according to our departmental dose-optimization program which includes automated exposure control, adjustment of the mA and/or kVp according to patient size and/or use of iterative reconstruction technique where applicable. COMPARISON: None Indication: VALGUS DEFORMITY NEC RT KNEE, , chronic knee pain Findings: Medial compartment: Mild subchondral sclerosis without significant marginal spurring without compartment narrowing. Lateral compartment: Subchondral sclerosis, mild marginal spurring and subchondral cystic changes in the lateral tibial plateau. Moderate anterior compartment narrowing. Patellofemoral compartment: Mild subchondral sclerosis and minimal lateral patellar marginal spurring. Other: There is minimal joint effusion. No significant popliteal cyst. There are calcified bone infarcts in the medial and lateral femoral condyle that extend to the subchondral plate without cortical depression or collapse. The infarct extends laterally into the femoral metaphysis. There is also extension to the lateral trochlear subchondral plate. No obvious infarct in the tibia, fibula and patella.. Included portion of the LEFT knee shows calcified infarct in the LEFT femur also. Hip: Limited axial images through the hip joint. There is a RIGHT hip prosthesis. Ankle: Limited axial images of the ankle are also obtained. There is sclerosis in the talus suggesting possible bone infarcts. There are likely bone infarcts in the LEFT talar dome also. IMPRESSION: 1. Osteoarthritis at the knee as described most prominent in the lateral femorotibial compartment. 2. 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 There are partially included infarct in the LEFT femur also. Suspect infarcts in the talus bilaterally. Interpreted By: Moses Chase MD Preliminary Report By: Moses Chase MD Electronically Signed By: Moses Chase MD Dictated Date: 12/05/2020 10:53:44 AM Prelim Date: 12/05/2020 10:53:44 AM Sign Date: 12/05/2020 11:02:31 AM Ordering Provider:Kyle Gunderson [facility] ([place]) .Auto Diffon 12-04-2020 Basophil, Absolute 0.00 10 3/mcL Normal 0.00-0.19 [facility] ([place]) Comment on above: Performed By: #### C PRIMO TURNER ANEU #### [address] [address] Basophils/100 WBC (Bld) 0.4 % Normal 0.0-2.5 [facility] ([place]) Comment on above: Performed By: #### C PRIMO TURNER, ANEU #### [address] [address] Eosinophil, Absolute 0.10 10 3/mcL Normal 0.00-0.40 [facility] ([place]) Comment on above: Performed By: #### C PRIMO TURNER, ANEU #### [address] [address] Eosinophils/100 WBC (Bld) 2.1 % Normal 0.0-7.0 [facility] ([place]) Comment on above: Performed By: #### C PRIMO TURNER, ANEU #### [id number] [place], [place] [address] Lymphocyte, Absolute 1.00 10 3/mcL Normal 0.77-3.85 [facility] ([place]) Comment on above: Performed By: #### C PRIMO TURNER, PAUL #### [address] [address] Lymphocytes/100 WBC (Bld) 17.0 % Normal 10.0-50.0 [facility] ([place]) Comment on above: Performed By: #### PRIMO BARRETT, PAUL #### [place] [address] [address] Monocyte, Absolute 0.40 10 3/mcL Normal 0.15-1.00 [facility] ([place]) Comment on above: Performed By: #### C PRIMO TURNER, PAUL #### [place] [address] [address] Monocytes/100 WBC (Bld) 7.4 % Normal 1.7-13.0 [facility] ([place]) Comment on above: Performed By: #### PRIMO BARRETT, ANEU #### [place] [address] [address] Neutrophils/100 WBC (Bld) 73.1 % Normal 37.0-80.0 [facility] ([place]) Comment on above: Performed By: #### PRIMO BARRETT, PAUL #### [address] [address] .GFRon 12-04-2020 GFR 226 ml/min/1.73sqm Normal [facility] ([place]) Comment on above: Result Comment: GFR Population mean for , Non- Americans Ages 20-29 = 116 mL/min/1.73 sq.m. Ages 30-39 = 107 mL/min/1.73 sq.m. Ages 40-49 = 99 mL/min/1.73 sq.m. Ages 50-59 = 93 mL/min/1.73 sq.m. Ages 60-69 = 85 mL/min/1.73 sq.m. Ages 70+ = 75 mL/min/1.73 sq.m. Chronic Kidney Disease: Less than 60 mL/min/1.73 square meters End Stage Renal Disease: Less than 15 mL/min/1.73 square meters Performed By: #### B MP, GFR #### [address] [address] GFR Non- 186 ml/min/1.73sqm Normal [facility] ([place]) Comment on above: Result Comment: GFR Population mean for , Non- Americans Ages 20-29 = 116 mL/min/1.73 sq.m. Ages 30-39 = 107 mL/min/1.73 sq.m. Ages 40-49 = 99 mL/min/1.73 sq.m. Ages 50-59 = 93 mL/min/1.73 sq.m. Ages 60-69 = 85 mL/min/1.73 sq.m. Ages 70+ = 75 mL/min/1.73 sq.m. Chronic Kidney Disease: Less than 60 mL/min/1.73 square meters End Stage Renal Disease: Less than 15 mL/min/1.73 square meters Performed By: #### B MP, GFR #### [address] [address] .NEUABSon 12-04-2020 Neutrophil, Absolute 4.30 10 3/mcL Normal 2.85-6.16 [facility] ([place]) Comment on above: Performed By: #### C PRIOM TURNER, ANEU #### [place] [address] [address] BMPon 12-04-2020 BUN/Creatinine Ratio 83 ratio High 7-27 [facility] ([place]) Comment on above: Performed By: #### B MP, GFR #### [address] [address] Calcium [Mass/Vol] 9.6 mg/dL Normal 8.4-10.2 [facility] ([place]) Comment on above: Performed By: #### B MP, GFR #### [address] [address] Chloride [Moles/Vol] 104 mmol/L Normal 98-107 [facility] ([place]) Comment on above: Performed By: #### B MP, GFR #### [address] [address] CO2 [Moles/Vol] 35 mmol/L High 22-29 [facility] ([place]) Comment on above: Performed By: #### B MP, GFR #### [address] [address] Creatinine [Mass/Vol] 0.36 mg/dL Low 0.55-1.02 [facility] ([place]) Comment on above: Performed By: #### B MP, GFR #### [address] [address] Electrolyte Balance 4.0 mEq/L Normal [facility] ([place]) Comment on above: Performed By: #### B MP, GFR #### [address] [address] Glucose [Mass/Vol] 80 mg/dL Normal 70-105 [facility] ([place]) Comment on above: Performed By: #### B MP, GFR #### [address] [address] Potassium [Moles/Vol] 4.7 mmol/L Normal 3.5-5.1 [facility] ([place]) Comment on above: Performed By: #### B MP, GFR #### [address] [address] Sodium [Moles/Vol] 143 mmol/L Normal 136-145 [facility] ([place]) Comment on above: Performed By: #### B MP, GFR #### [address] [address] Urea nitrogen [Mass/Vol] 30 mg/dL High 7-18 [facility] ([place]) Comment on above: Performed By: #### B MP, GFR #### [address] [address] CBCon 12-04-2020 Erythrocyte distribution width (RBC) [Ratio] 16.0 % High 11.5-14.5 [facility] ([place]) Comment on above: Order Comment: Pre-A dmission Testing Performed By: #### C YUE, PRIMO, ANEU #### [place] [address] [address] Hematocrit (Bld) [Volume fraction] 40.8 % Normal 37.0-47.0 [facility] ([place]) Comment on above: Order Comment: Pre-A dmission Testing Performed By: #### C BC, ADIFF, ANEU #### [address] [address] Hgb 13.3 G/dL Normal 12.0-16.0 [facility] ([place]) Comment on above: Order Comment: Pre-A dmission Testing Performed By: #### C BC, ADIFF, ANEU #### [address] [address] MCH (RBC) [Entitic mass] 30.7 pg Normal 27.0-31.2 [facility] ([place]) Comment on above: Order Comment: Pre-A dmission Testing Performed By: #### C BC, ADIFF, ANEU #### [address] [address] MCHC 32.7 G/dL Low 33.0-37.0 [facility] ([place]) Comment on above: Order Comment: Pre-A dmission Testing Performed By: #### C BC, ADIFF, ANEU #### [address] [address] MCV (RBC) [Entitic vol] 94.0 fL Normal 80.0-94.0 [facility] ([place]) Comment on above: Order Comment: Pre-A dmission Testing Performed By: #### C BC, ADIFF, ANEU #### [address] [address] Platelet 296 10 3/mcL Normal 130-400 [facility] ([place]) Comment on above: Order Comment: Pre-A dmission Testing Performed By: #### C BC, ADIFF, ANEU #### [address] [address] Platelet mean volume (Bld) [Entitic vol] 8.9 fL Normal 7.4-10.4 [facility] ([place]) Comment on above: Order Comment: Pre-A dmission Testing Performed By: #### C BC, ADIFF, ANEU #### [address] [address] RBC 4.34 10 6/mcL Normal 4.20-5.40 [facility] ([place]) Comment on above: Order Comment: Pre-A dmission Testing Performed By: #### C PRIMO TURNER ANEU #### [address] [place], [place] [address] WBC 5.90 10 3/mcL Normal 4.60-10.80 [facility] ([place]) Comment on above: Order Comment: Pre-A dmission Testing Performed By: #### C PRIMO TURNER ANEU #### [place] [id number] [place], [place] [address] CMPon 12-04-2020 Albumin Level 3.6 G/dL Normal 3.5-5.0 [facility] ([place]) Comment on above: Performed By: #### C MP #### [address] [address] Albumin/Globulin [Mass ratio] 0.9 {ratio} Low 1.1-2.5 [facility] ([place]) Comment on above: Performed By: #### C MP #### [address] [address] ALP [Catalytic activity/Vol] 72 U/L Normal 40-135 [facility] ([place]) Comment on above: Performed By: #### C MP #### [address] [address] ALT [Catalytic activity/Vol] 22 U/L Normal 14-59 [facility] ([place]) Comment on above: Performed By: #### C MP #### [address] [address] AST [Catalytic activity/Vol] 12 U/L Normal 10-40 [facility] ([place]) Comment on above: Performed By: #### C MP #### [address] [address] Bili Total 0.3 mg/dL Normal 0.2-1.0 [facility] ([place]) Comment on above: Result Comment: Use of this assay is not recommended for patients undergoing treatment with eltrombopag due to the potential for falsely elevated results. Performed By: #### C MP #### [address] [address] BUN/Creatinine Ratio 79 ratio High 7-27 [facility] ([place]) Comment on above: Performed By: #### C MP #### [address] [address] Calcium [Mass/Vol] 9.5 mg/dL Normal 8.4-10.2 [facility] ([place]) Comment on above: Performed By: #### C MP #### [address] [address] Chloride [Moles/Vol] 103 mmol/L Normal 98-107 [facility] ([place]) Comment on above: Performed By: #### C MP #### [address] [address] CO2 [Moles/Vol] 33 mmol/L High 22-29 [facility] ([place]) Comment on above: Performed By: #### C MP #### [place] [id number] Creatinine [Mass/Vol] 0.39 mg/dL Low 0.55-1.02 [facility] ([place]) Comment on above: Performed By: #### C MP #### [address] [address] Electrolyte Balance 7.0 mEq/L Normal [facility] ([place]) Comment on above: Performed By: #### C MP #### [place] [id number] Globulin 4.0 G/dL Normal [facility] ([place]) Comment on above: Performed By: #### C MP #### [address] [address] Glucose [Mass/Vol] 80 mg/dL Normal 70-105 [facility] ([place]) Comment on above: Performed By: #### C MP #### [address] [address] Potassium [Moles/Vol] 4.7 mmol/L Normal 3.5-5.1 [facility] ([place]) Comment on above: Performed By: #### C MP #### [address] [address] Sodium [Moles/Vol] 143 mmol/L Normal 136-145 [facility] ([place]) Comment on above: Performed By: #### C MP #### [address] [address] Total Protein 7.6 G/dL Normal 6.4-8.2 [facility] ([place]) Comment on above: Performed By: #### C MP #### [place] [id number] [place] [address] Urea nitrogen [Mass/Vol] 31 mg/dL High 7-18 [facility] ([place]) Comment on above: Performed By: #### C MP #### [address] [address] XR CHEST 2 VIEWSon 1 XR CHEST 2 VIEWS ORIGINAL XR CHEST 2 VIEWS CLINICAL STATEMENT: PREADMISSION TESTING. COMPARISON: None FINDINGS: The cardiomediastinal silhouette is normal. There is interstitial thickening and probably bronchiectasis at the LEFT base. No pleural effusion, vascular congestion, or pneumothorax. No acute osseous abnormality is confirmed. IMPRESSION: Suspect interstitial disease and/or bronchiectasis in the LEFT lower lobe. Consider high-resolution CT thorax. Interpreted By: Lauryn Ferrera MD Preliminary Report By: Lauryn Ferrera MD Electronically Signed By: Lauryn Ferrera MD Dictated Date: 12/04/2020 4:38:53 PM Prelim Date: 12/04/2020 4:38:53 PM Sign Date: 12/04/2020 4:40:33 PM Ordering Provider:Kyle Gunderson [facility] ([place]) Creatine Kinase, Levelon CK [Catalytic activity/Vol] 26 U/L 0 - 215 [facility] Work Phone: Hematologyon 08-11-2020 Hematocrit (Bld) [Volume fraction] 40.8 % See Below [facility] Work Phone: Comment on above: Reference Range: 36. 0 - 46.0 Hemoglobin (Bld) [Mass/Vol] 13.0 g/dL See Below [facility] Work Phone: Comment on above: Reference Range: 12. 0 - 16.0 MCV (RBC) [Entitic vol] 93 fL 80 - 100 [facility] Work Phone: Platelets (Bld) [#/Vol] 334 {x10E9/L} 150 - 450 [facility] Work Phone: RBC (Bld) [#/Vol] 4.41 {x10E12/L} See Below [facility] Work Phone: Comment on above: Reference Range: 4.0 0 - 5.20 WBC (Bld) [#/Vol] 6.0 {x10E9/L} 4.4 - 11.3 [facility] Work Phone: Lipid Panelon 08-11-2020 Cholesterol [Mass/Vol] 209 mg/dL above high threshold 0 - 199 [facility] Work Phone: Comment on above: . AGE DESIRABLE BORD YANICK HIGH HIGH 0-19 Y 0 - 169 170 - 199 >/= 200 20-24 Y 0 - 189 190 - 224 >/= 225 >24 Y 0 - 199 200 - 239 >/= 240 All ranges are based on fasting samples. Specific therapeutic targets will vary based on patient-specific cardiac risk.. Pediatric guidelines reference:Pediatrics 2011, 128(S5). Adult guidelines reference: NCEP ATPIII Guidelines, ALEXANDER 2001, 258:2486-97. Venipuncture immediately after or during the administration of Metamizole may lead to falsely low results. Testing should be performed immediately prior to Metamizole dosing. Cholesterol in HDL [Mass/Vol] 43.0 mg/dL [facility] Work Phone: Comment on above: . AGE VERY LOW LOW N ORMAL HIGH 0-19 Y < 35 < 40 40-45 ---- 20- 24 Y ---- < 40 >45 ---- >24 Y ---- < 40 40-60 >60. Cholesterol in LDL [Mass/Vol] 141 mg/dL above high threshold 0 - 99 [facility] Work Phone: Comment on above: . NEAR BORD AGE CLARK RABLE OPTIMAL HIGH HIGH VERY HIGH 0-19 Y 0 - 109 --- 110-129 >/= 130 ---- 20-24 Y 0 - 119 --- 120-159 >/= 160 ---- >24 Y 0 - 99 100-129 130-159 160-189 >/=190. Cholesterol.total/Ch olesterol in HDL [Mass ratio] 4.9 {ratio} [facility] Work Phone: Comment on above: REF VALUESDESIRABLE < 3.4HIGH RISK > 5.0 Triglyceride [Mass/Vol] 125 mg/dL 0 - 149 [facility] Work Phone: Comment on above: . AGE DESIRABLE BORD YANICK HIGH HIGH VERY HIGH 0 D-90 D 19 - 174 ---- ---- ----91 D- 9 Y 0 - 74 75 - 99 >/= 100 ---- 10-19 Y 0 - 89 90 - 129 >/= 130 ---- 20-24 Y 0 - 114 115 - 149 >/= 150 ---- >24 Y 0 - 149 150 - 199 200- 499 >/= 500. Venipuncture immediately after or during the administration of Metamizole may lead to falsely low results. Testing should be performed immediately prior to Metamizole dosing. Lipid Panel 25 mg/dL 0 - 40 [facility] Work Phone: Metabolic Panelon 08-11-2020 ALP [Catalytic activity/Vol] 64 U/L 33 - 110 [facility] Work Phone: Anion gap [Moles/Vol] 10 mmol/L 10 - 20 [facility] Work Phone: Bilirubin [Mass/Vol] 0.3 mg/dL 0.0 - 1.2 [facility] Work Phone: Calcium [Mass/Vol] 10.0 mg/dL 8.6 - 10.3 [facility] Work Phone: Chloride [Moles/Vol] 99 mmol/L 98 - 107 [facility] Work Phone: CO2 [Moles/Vol] 33 mmol/L above high threshold 21 - 32 [facility] Work Phone: Creatinine [Mass/Vol] 0.36 mg/dL below low threshold See Below [facility] Work Phone: Comment on above: Reference Range: 0.5 0 - 1.05 Glucose [Mass/Vol] 92 mg/dL 74 - 99 [facility] Work Phone: Potassium [Moles/Vol] 4.4 mmol/L 3.5 - 5.3 [facility] Work Phone: Protein [Mass/Vol] 7.7 g/dL 6.4 - 8.2 [facility] Work Phone: Sodium [Moles/Vol] 138 mmol/L 136 - 145 [facility] Work Phone: Urea nitrogen [Mass/Vol] 9 mg/dL 6 - 23 [facility] Work Phone: Otheron 08-11-2020 XR Chest 2 views Interpreted by: JAMES ANGULO BKTBDDNV62/08/21 14:02MRN: [id number] Name: TENNILLE ORTIZ STUDY:TH CHEST 2 VIEW PA AND LAT; 08/11/2020 11:04 am INDICATION:SOB, cough. COMPARISON:None. ORDERING CLINICIAN:SHARON ABRAHAM FINDINGS:CHEST PA AND LATERAL CARDIOMEDIASTINAL SILHOUETTE:Cardiomediasti nal silhouette is normal in size and configuration. LUNGS:Fibrotic strands are seen, in the right cardiophrenic angle areaunchanged from 03/07/2018. There is increase in the interstitialmarkings, at the left lung base with a honeycomb pattern andarchitectural distortion with dilated bronchi consistent withpulmonary interstitial fibrosis. No pleural effusion is seen. Aconsolidative pattern, present the in the left lower lobe in theretrocardiac area on 08/18/2019 has cleared. Also right-sided pleuraleffusion, seen previously has cleared. The pulmonary vascularity isnormal. ABDOMEN:No remarkable upper abdominal findings. BONES:No acute osseous changes. IMPRESSION:1. Resolution of the right-sided pleural effusion and consolidationleft lower lobe seen on 08/18/2019.Underlying coarse interstitial pattern at the left lung baseconsistent with interstitial lung disease similar to the CT scan of12/26/2017. Electronically signed by: AMRIK PERDOMO 08/11/20 14:02 Normal [facility] Work Phone: Albumin BCP dye [Mass/Vol] 3.9 g/dL 3.4 - 5.0 [facility] Work Phone: ALT With P-5'-P [Catalytic activity/Vol] 7 U/L 7 - 45 [facility] Work Phone: Comment on above: Patients treated wit h Sulfasalazine may generate falsely decreased results for ALT. AST With P-5'-P [Catalytic activity/Vol] 12 U/L 9 - 39 [facility] Work Phone: Erythrocyte distribution width (RBC) [Ratio] 15.7 % above high threshold See Below [facility] Work Phone: Comment on above: Reference Range: 11. 5 - 14.5 MCHC (RBC) [Mass/Vol] 31.8 g/dL below low threshold See Below [facility] Work Phone: Comment on above: Reference Range: 32. 0 - 36.0 >60 >60 [facility] Work Phone: Comment on above: CALCULATIONS OF YON MATED GFR ARE PERFORMED USING THE MDRD STUDY EQUATION FOR THE IDMS-TRACEABLE CREATININE METHODS. CLIN CHEM 2007;53:766-72 XR Knee 4 views Interpreted by: JAMES PERDOMO08/11/20 13:48MRN: [id number] Name: TENNILLE ORTIZ STUDY:KNEE; COMPLT, 4 OR MORE VIEWS; Right; 08/11/2020 11:02 am INDICATION:Pain in right knee no injury COMPARISON:None. ORDERING CLINICIAN:SHARON ABRAHAM FINDINGS:RIGHT KNEE-AP, LATERAL, INTERNAL AND EXTERNAL OBLIQUE VIEWSThere is marked narrowing of the lateral aspect of the tibiofemoraljoint. No significant osteophyte formation. There is sclerosis,involving the medial and lateral femoral condyles as well asincreased density, in the distal portion of the diaphysis of thefemur laterally. This raises suspicion of avascular necrosis or boneinfarct. The density in the medial and lateral tibial plateaus isnormal. Overall the bone density is decreased. IMPRESSION:Increased bone density, in the lateral and femoral condyles, and onthe lateral aspect of the distal femoral diaphysis. Possible boneinfarct or avascular necrosis. MRI distal femur/knee recommended.Electronicall y signed by: AMRIK PERDOMO 08/11/20 13:48 Normal [facility] Work Phone: T4 - Free Thyroxine, Serumon 08-11-2020 Free T4 [Mass/Vol] 1.13 ng/dL above high threshold See Below [facility] Work Phone: Comment on above: Reference Range: 0.6 1 - 1.12 Thyroxine Free testing is performed using different testing methodology at [facility] than at other [facility]. Direct result comparisons should only be made within the same method.. Biotin can cause falsely elevated free T4 results. Patients taking a Biotin dose of up to 10 mg/day should refrain from taking Biotin for 24 hours before sample collection. Patient taking a Biotin dose of >10 mg/day should consult with their physician or the laboratory before the blood draw. Thyroidon 08-11-2020 TSH Qn 5.52 {mIU/L} above high threshold See Below [facility] Work Phone: Comment on above: Reference Range: 0.4 4 - 3.98 TSH testing is performed using different testing methodology at [facility] than at other [facility]. Direct result comparisons should only be made within the same method. Coronavirus 2019 RNA by PCR, Symptomaticon 01-16-2020 Coronavirus 2019 RNA by PCR, Symptomatic NOT DETECTED See Below [facility] Work Phone: Comment on above: SOURCE: Nasal, Nasop haryngealReference Range: Not DetectedThis assay is designed to detect the N, ORF1ab and/or S genes of SARS-CoV-2 via nucleic acid amplification. A Negative (NOT DETECTED) result does not preclude 2019-nCoV infection since the adequacy of sample collection and/or low viral burden may result in presence of viral nucleic acids below the clinical sensitivity of this test method. Negative (NOT DETECTED) result should not be used as the sole basis for treatment or other patient management decisions. Rather negative results should be combined with clinical observations, patient history, and epidemiological information to make patient management decisions.Fact sheet for providers: https://www.fda.gov/media/677840/downloadFact sheet for patients: https://www.fda.gov/media/481892/downloadThis test has received FDA Emergency Use Authorization (EUA) and has been verified by [facility] ([facility]). This test is only authorized for the duration of time that circumstances exist to justify the authorization of the emergency use of in vitro diagnostic tests for the detection of SARS-CoV-2 virus and/or diagnosis of COVID-19 infection under section 564(b)(1) of the Act, 21 U.S.C. 360bbb-3(b)(1), unless the authorization is terminated or revoked sooner. [facility]) is certified under CLIA-88 as qualified to perform high complexity testing. This tests analytical performance characteristics have been determined by [facility]. Testing is performed at [facility] is located at [address] [place] [address] (CLIA License #[id number], CAP #[id number]). C Urineon 01-04-2019 C Urine Final Report: >100,0 00 cfu/ml Escherichia coli ORGANISM: EC SUSCEPTIBILITY RESULTS Antibiotic LANCE Dilutn LANCE Interp ORGANISM: EC Amox/Cla : <=8/4 S Amp : >16 R Amp/Sul : 16/8 I Cefaz : <=8 S Cefo : <=2 S Cipro : <=1 S Gent : <=4 S Levo : <=2 S Cherelle : <=1 S Nitro : <=32 S Pip/Sha : <=16 S Tetra : >8 R Tobra : <=4 S SXT : <=2/38 S [facility] Comment on above: Performed By: #### 2 [id number] ####[facility] Microbiology [id number] [place] [id number] US Extremity Non-Vascular Le fton 10-18-2018 US Extremity Non-Vascular Left Exam Date/Time: 10/18/2018 09:10 EDT Reason for Exam: ENLARGED LYMPH NODES LEFT GROIN AREA;Lymph Node Report STUDY: US Extremity Non-Vascular Left; US Extremity Non-Vascular Right; 10/18/2018 9:10 am INDICATION: Lymph Node; Other (please specify). Left groin enlarged lymph nodes. Right groin pain. COMPARISON: None. ACCESSION NUMBER(S): [id number]; [id number] ORDERING CLINICIAN: Sharon Abraham TECHNIQUE: Grayscale imaging and color Doppler were utilized in the evaluation of each inguinal region. FINDINGS: On the left, there were several mildly enlarged elongated fat centered lymph nodes. The largest measured 17 x 12 x 4 mm and 16 x 15 x 6 mm. The left inguinal vessels were unremarkable. On the right, the right inguinal vessels were unremarkable. There were scant small fat centered lymph nodes in the right groin, the largest measuring 8 x 4 mm. IMPRESSION: Scant small fat centered lymph nodes in the right groin, most likely reactive. Nonspecific enlarged fat centered lymph nodes in the left groin. Although these could be reactive, these could also be infectious/inflammatory; neoplastic lymph nodes are less likely. Clinical correlation is needed. FINAL REPORT Dictated: 10/18/2018 3:28 pm Rodolfo Victoria MD Signed (Electronic Signature): 10/18/2018 3:28 pm Signed by: Rodolfo Victoria MD Technologist: LUZ ELENA [facility] US Extremity Non-Vascular Jeniffer milad 10-18-2018 US Extremity Non-Vascular Right Exam Date/Time: 10/18/2018 09:10 EDT Reason for Exam: ENLARGED LYMPH NODES LEFT GROIN AREA;Other (please specify) Report STUDY: US Extremity Non-Vascular Left; US Extremity Non-Vascular Right; 10/18/2018 9:10 am INDICATION: Lymph Node; Other (please specify). Left groin enlarged lymph nodes. Right groin pain. COMPARISON: None. ACCESSION NUMBER(S): [id number]; [id number] ORDERING CLINICIAN: Sharon Abraham TECHNIQUE: Grayscale imaging and color Doppler were utilized in the evaluation of each inguinal region. FINDINGS: On the left, there were several mildly enlarged elongated fat centered lymph nodes. The largest measured 17 x 12 x 4 mm and 16 x 15 x 6 mm. The left inguinal vessels were unremarkable. On the right, the right inguinal vessels were unremarkable. There were scant small fat centered lymph nodes in the right groin, the largest measuring 8 x 4 mm. IMPRESSION: Scant small fat centered lymph nodes in the right groin, most likely reactive. Nonspecific enlarged fat centered lymph nodes in the left groin. Although these could be reactive, these could also be infectious/inflammatory; neoplastic lymph nodes are less likely. Clinical correlation is needed. FINAL REPORT Dictated: 10/18/2018 3:28 pm Rodolfo Victoria MD Signed (Electronic Signature): 10/18/2018 3:28 pm Signed by: Rodolfo Victoria MD Technologist: LUZ ELENA [facility] NM Myocardial Spect Multi Re st/Stresson 04-10-2018 NM Myocardial Spect Multi Rest/Stress Exam Date/Time: 04/10/2018 10:23 EDT Reason for Exam: CHEST PAIN SOB LEIGH ORD Report STUDY: NM Myocardial Spect Multi Rest/Stress; 04/10/2018 10:23 am INDICATION: CHEST PAIN SOB LEIGH ORD. COMPARISON: None. ACCESSION NUMBER(S): [id number] ORDERING CLINICIAN: Yosi Yadav TECHNIQUE: DIVISION OF NUCLEAR MEDICINE PHARMACOLOGIC STRESS MYOCARDIAL PERFUSION SCAN, ONE DAY PROTOCOL The patient received an intravenous dose of 10.8 mCi of Tc-99m Myoview and resting emission tomographic (SPECT) images of the myocardium were acquired. The patient then received an intravenous infusion of 0.4 mg regadenoson (Lexiscan) followed by an additional dose of 32 mCi of Tc-99m Myoview. Stress phase SPECT images of the myocardium were then acquired. These included ECG-gated images to assess and quantify ventricular function. FINDINGS: Stress and rest images both demonstrate a normal distribution of perfusion throughout all LV segments with no sign of ischemia or infarct. ECG-gated images demonstrate normal LV size and myocardial contractility with an LV ejection fraction of greater than 65% (normal above 45 percent). IMPRESSION: 1. Normal stress myocardial perfusion imaging in response to pharmacologic stress. 2. Well-maintained left ventricular function. This study was interpreted at [facility]. FINAL REPORT Dictated: 04/10/2018 10:44 am Arelis Haney MD Signed (Electronic Signature): 04/10/2018 10:44 am Signed by: Arelis Haney MD Technologist: BEKA Normal [facility] Aldolaseon 03-24-2018 Aldolase 5.2 unit/L Normal [facility] Comment on above: Result Comment: No p atient age and/or gender provided Age Male Female 0 - 30 days Not Estab. Not Estab. 31 days - 1 year 5.0 - 11.7 5.0 - 11.7 >1 year 3.3 - 10.3 3.3 - 10.3 Performed At: [facility] [id number] Dejah Sahu PhD Ph:[phone] Performed By: #### 2 [id number] ####[facility] [employer] [address] [place] [address] Auto Diffon 03-23-2018 Basophils (Bld) [#/Vol] 0.1 E3/mcL Normal 0.0-0.2 [facility] Comment on above: Order Comment: Order Added by Discern Expert. Performed By: #### 2 [id number] ####[facility] [address] [place] [address] Basophils/100 WBC (Bld) 0.7 % Normal 0.0-2.0 [facility] Comment on above: Order Comment: Order Added by Discern Expert. Performed By: #### 2 [id number] ####[facility] [address] [place] [address] Eos Absolute 0.1 E3/mcL Normal 0.0-0.7 [facility] Comment on above: Order Comment: Order Added by Discern Expert. Performed By: #### 2 [id number] ####[facility] [address] [place] [address] Eosinophils/100 WBC (Bld) 1.6 % Normal 0.0-11.0 [facility] Comment on above: Order Comment: Order Added by Discern Expert. Performed By: #### 2 [id number] ####[facility] [address]LbiGqah[address] [place] [address] Lymphocytes (Bld) [#/Vol] 0.8 E3/mcL Low 1.2-3.4 [facility] Comment on above: Order Comment: Order Added by Discern Expert. Performed By: #### 2 [id number] ####[facility] [address] [place] [address] Lymphocytes/100 WBC (Bld) 9.7 % Low 20.0-55.0 [facility] Comment on above: Order Comment: Order Added by Discern Expert. Performed By: #### 2 [id number] ####[facility] [address] [place] [address] [place] Absolute 0.6 E3/mcL Normal 0.0-0.7 [facility] Comment on above: Order Comment: Order Added by Discern Expert. Performed By: #### 2 [id number] ####[facility] [address] [place] [address] Monocytes/100 WBC (Bld) 7.7 % Normal 0.0-10.0 [facility] Comment on above: Order Comment: Order Added by Discern Expert. Performed By: #### 2 [id number] ####[facility] [address] [place] [address] Neutro Absolute 6.6 E3/mcL High 1.4-6.5 [facility] Comment on above: Order Comment: Order Added by Discern Expert. Performed By: #### 2 [id number] ####[facility] [address] [place] [address] Neutro Auto 80.3 % High 37.0-75.0 [facility] Comment on above: Order Comment: Order Added by Discern Expert. Performed By: #### 2 [id number] ####[facility] [address] [place] [address] CBC w/ Auto Diffon 8 Erythrocyte distribution width (RBC) [Ratio] 14.9 % High 11.5-14.5 [facility] Comment on above: Performed By: #### 2 [id number] #### [facility] [address] [place] [address] Hematocrit (Bld) [Volume fraction] 38.3 % Normal 36.0-48.0 [facility] Comment on above: Performed By: #### 2 [id number] #### [facility] SmithHemo [address] [place] [address] Hemoglobin (Bld) [Mass/Vol] 12.2 g/dL Normal 12.0-16.0 [facility] Comment on above: Performed By: #### 2 [id number] #### [facility] SmithHemo [facility] [place] [address] MCH (RBC) [Entitic mass] 29.2 pg Normal 27.0-31.0 [facility] Comment on above: Performed By: #### 2 [id number] #### [facility] SmithHemo [facility] [place] [address] MCHC (RBC) [Mass/Vol] 31.9 g/dL Low 33.0-37.0 [facility] Comment on above: Performed By: #### 2 191101 #### [facility] SmithHemo [address] [place] [address] MCV (RBC) [Entitic vol] 91.6 fL Normal 78.0-100.0 [facility] Comment on above: Performed By: #### 2 [id number] #### [facility] SmithHemo [address] [place] [address] Platelet mean volume (Bld) [Entitic vol] 9.7 fL Normal 7.4-11.0 [facility] Comment on above: Performed By: #### 2 609753 #### [facility] [address]Hemo [address] [place] [address] Platelets (Bld) [#/Vol] 252 E3/mcL Normal 130-400 [facility] Comment on above: Performed By: #### 2 [id number] #### [facility] [employer] [address] [place] [address] RBC (Bld) [#/Vol] 4.18 E6/mcL Normal 3.90-5.40 [facility] Comment on above: Performed By: #### 2 [id number] #### [facility] SmithHemo [address] [place] [address] WBC (Bld) [#/Vol] 8.2 E3/mcL Normal 3.6-11.[address] [facility] Comment on above: Performed By: #### 2 [id number] #### D[facility] SmithHemo [address] [place] [address] CKon 03-23-2018 Total CK 43 Int._Unit/L Normal 26-140 [facility] Comment on above: Performed By: #### 2 636571 #### [facility] [employer] [address] [place] [address] CMPon 03-23-2018 Albumin [Mass/Vol] 3.6 g/dL Normal 3.2-5.0 [facility] Comment on above: Performed By: #### 2 337691 #### [facility] [employer] [address] [place] [address] Albumin/Globulin [Mass ratio] 1.0 {ratio} Low 1.1-1.9 [facility] Comment on above: Performed By: #### 2 [id number] #### [facility] [employer] [address] [place] [address] Alk Phos 47 Int._Unit/L Normal 42-121 [facility] Comment on above: Performed By: #### 2 [id number] #### [facility] [employer] [address] [place] [address] ALT [Catalytic activity/Vol] 12 Int._Unit/L Normal 10-40 [facility] Comment on above: Performed By: #### 2 [id number] #### [facility] [employer] [address] [place] [address] AST [Catalytic activity/Vol] 13 Int._Unit/L Normal 10-42 [facility] Comment on above: Performed By: #### 2 [id number] #### [facility] [employer] [address] [place] [address] Bili Total 0.7 mg/dL Normal 0.2-1.0 [facility] Comment on above: Performed By: #### 2 [id number] #### [facility] [employer] [address] [place] [address] Globulin (S) [Mass/Vol] 3.6 g/dL Normal 2.0-4.0 [facility] Comment on above: Performed By: #### 2 546836 #### [facility] [employer] [address] [place] [address] Protein [Mass/Vol] 7.2 g/dL Normal 6.4-8.3 [facility] Comment on above: Performed By: #### 2 140381 #### [facility] [employer] [address] [place] [address] Creatinine [Mass/Vol] 0.3 mg/dL Low 0.6-1.3 [facility] Comment on above: Performed By: #### 2 [id number] #### [facility] [employer] [address] [place] [address] Urea nitrogen [Mass/Vol] 13 mg/dL Normal 7-18 [facility] Comment on above: Performed By: #### 2 393645 #### [facility] [employer] [address] [place] [address] Urea nitrogen/Creatinine [Mass ratio] 43.3 ratio High 5.4-30.0 [facility] Comment on above: Performed By: #### 2 [id number] #### [facility] [employer] [address] [place] [address] Calcium [Mass/Vol] 9.1 mg/dL Normal 8.4-10.2 [facility] Comment on above: Performed By: #### 2 405759 #### [facility] [employer] [address] [place] [address] Chloride [Moles/Vol] 100 mmol/L Normal 98-107 [facility] Comment on above: Performed By: #### 2 376705 #### [facility] [employer] [address] [place] [address] CO2 [Moles/Vol] 30.8 mmol/L High 24.0-30.0 [facility] Comment on above: Performed By: #### 2 768725 #### [facility] [employer] [address] [place] [address] Glucose [Mass/Vol] 90 mg/dL Normal 70-99 [facility] Comment on above: Performed By: #### 2 [id number] #### [facility] [employer] [address] [place] [address] Potassium [Moles/Vol] 3.9 mmol/L Normal 3.5-5.1 [facility] Comment on above: Performed By: #### 2 [id number] #### [facility] [employer]MamboCar [facility] [place] [address] Sodium [Moles/Vol] 140 mmol/L Normal 136-145 [facility] Comment on above: Performed By: #### 2 [id number] #### [facility] [employer] [place] [address] Lipid Profileon 03-23-2018 Cholesterol [Mass/Vol] 262 mg/dL High 50-200 [facility] Comment on above: Result Comment: TOTA L CHOLEESTEROL: <200 NORMAL 200 - 239 BORDERLINE HIGH >240 HIGH Performed By: #### 3 [id number] #### [facility] [employer] [facility] [place] [address] Cholesterol in HDL [Mass/Vol] 52 mg/dL Normal >=41 [facility] Comment on above: Performed By: #### 3 [id number] #### [facility] [employer] [address] [place] [address] Cholesterol in LDL [Mass/Vol] 182 mg/dL High 0-130 [facility] Comment on above: Result Comment: <100 OPTIMAL 100-129 NEAR / ABOVE OPTIMAL 130-159 BORDERLINE HIGH 160-189 HIGH >190 VERY HIGH CALC LDL NOT VALID WHEN TRIGLYCERIDE IS >400 MG/DL Performed By: #### 3 [id number] #### [facility] [employer] [address] [place] [address] Cholesterol in VLDL [Mass/Vol] 28 mg/dL Normal [facility] Comment on above: Performed By: #### 3 [id number] #### [facility] [employer] [facility] [place] [address] Triglyceride [Mass/Vol] 141 mg/dL Normal 35-150 [facility] Comment on above: Result Comment: <150 NORMAL 150-199 BORDERLINE HIGH 200-499 HIGH >500 VERY HIGH Performed By: #### 3 [id number] #### DILLANEna [employer]Car [facility] [place] [address] TSHon 03-23-2018 TSH Qn 0.89 mIU/m Normal 0.30-5.60 [facility] Comment on above: Performed By: #### 2 807301 #### [facility] [employer] [address] [place] [address], [place] [address] Vitamin D 25 Hydroxyon 03-23 Vitamin D 25 Hydroxy 37.8 ng/mL Normal 30.0-100.0 [facility] Comment on above: Performed By: #### 5 [id number] #### [facility] [employer] [address] [place] [address] XR Abdomen 2 Viewson 018 XR Abdomen 2 Views Exam Date/Time: 03/23/2018 10:07 EDT Reason for Exam: Abdominal pain Report STUDY: XR Abdomen 2 Views; 03/23/2018 10:07 am INDICATION: Abdominal pain. COMPARISON: None. ACCESSION NUMBER(S): [id number] ORDERING CLINICIAN: Sharon Abraham FINDINGS: 2 views of the abdomen including supine an upright AP views of the abdomen were obtained. The patient is status post right total hip arthroplasty. There is a nonobstructive bowel gas pattern present. No free intraperitoneal air or air-fluid levels are identified. No definite abnormal calcifications are seen over the abdomen. Osseous structures are grossly unremarkable. IMPRESSION: Nonobstructive bowel gas pattern. FINAL REPORT Dictated: 03/23/2018 10:59 am Syd Caro MD Signed (Electronic Signature): 03/23/2018 10:59 am Signed by: Syd Caro MD Technologist: [facility] XR Chest 2 Viewson 8 XR Chest 2 Views Exam Date/Time: 03/23/2018 10:07 EDT Reason for Exam: Pneumonia Report STUDY: XR Chest 2 Views; 03/23/2018 10:07 am INDICATION: Pneumonia. COMPARISON: 03/07/2018 ACCESSION NUMBER(S): [id number] ORDERING CLINICIAN: Sharon Abraham FINDINGS: PA and lateral views of the chest were obtained. Mild coarse interstitial prominence is seen throughout the lungs bilaterally, similar to the prior study, most consistent with scarring/ fibrosis. Hazy airspace consolidation is seen at the left lung base and may represent atelectasis and/or pneumonia. No pleural effusion or pneumothorax is identified. The cardiac silhouette is within normal limits for size. Mild discogenic degenerative changes are seen throughout the thoracic spine. IMPRESSION: Left basilar airspace opacity, as described above. Clinical correlation and continued follow-up until clearing is recommended. FINAL REPORT Dictated: 03/23/2018 10:58 am Syd Caro MD Signed (Electronic Signature): 03/23/2018 10:58 am Signed by: Syd Caro MD Technologist: [facility] eGFRon 03-23-2018 GFR/1.73 sq M predicted among non-blacks MDRD (S/P/Bld) [Vol rate/Area] mL/min/{1.73_m2} [facility] Comment on above: Order Comment: Order added by Discern Expert. Performed By: #### [id number] #### DILLAN [employer] [address] [place] [address] XR Chest 2 Viewson 8 XR Chest 2 Views Exam Date/Time: 03/07/2018 11:47 EDT Reason for Exam: Shortness of breath (SOB) Report STUDY: XR Chest 2 Views; 03/07/2018 11:47 am INDICATION: Shortness of breath (SOB). COMPARISON: None. ACCESSION NUMBER(S): [id number] ORDERING CLINICIAN: Sharon Abraham FINDINGS: LUNGS: Patchy increased density is present in the left retrocardiac area, consistent with pneumonia involving the left lower lobe. No loss of volume is seen in the left lung. The right lung is well inflated. Slight crowding of markings is seen, in the right cardiophrenic angle. No prior studies are available. HEART AND VASCULATURE: The cardiac size is normal. Mild prominence of the upper lobe veins is present. The costophrenic angles are bilaterally clear. MEDIASTINUM: No hilar or mediastinal enlargement is seen. IMPRESSION: Patchy infiltrate left lower lobe consistent with pneumonia. No prior studies. No pleural effusion. Note that a prior CT scan of the abdomen did show interstitial cystic and reticular changes at the left lung base with milder changes in the right lower lobe. FINAL REPORT Dictated: 03/07/2018 4:25 pm Amrik Perdomo MD Signed (Electronic Signature): 03/07/2018 4:25 pm Signed by: Amrik Perdomo MD Technologist: [facility] Vital Signs Date Time Vital Sign Value Performing Clinician Rodriguez aceves 11-14-2024 08:52-0400 Body mass index (BMI) [Ratio] 15.41 kg/m2 Vincenzo Click DIRECTOR AND PROFESSOR.DIESEL ENGINE MECHANIC Work Phone: [facility] 11-14-2024 08:52-0400 Body weight 38.83 kg Vincenzo Click DIRECTOR AND PROFESSOR.DIESEL ENGINE MECHANIC Work Phone: [facility] 11-14-2024 08:52-0400 Diastolic blood pressure 62 mm[Hg] Vincenzo Click DIRECTOR AND PROFESSOR.DIESEL ENGINE MECHANIC Work Phone: [facility] 11-14-2024 08:52-0400 Heart rate 60 /min Vincenzo Click DIRECTOR AND PROFESSOR.DIESEL ENGINE MECHANIC Work Phone: [facility] 11-14-2024 08:52-0400 Respiratory rate 18 /min Vincenzo Click DIRECTOR AND PROFESSOR.DIESEL ENGINE MECHANIC Work Phone: [facility] 11-14-2024 08:52-0400 SaO2% (BldA) [Mass fraction] 98 % Vincenzo Click DIRECTOR AND PROFESSOR.DIESEL ENGINE MECHANIC Work Phone: [facility] 11-14-2024 08:52-0400 Systolic blood pressure 102 mm[Hg] Vincenzo Click DIRECTOR AND PROFESSOR.DIESEL ENGINE MECHANIC Work Phone: [facility] 09-21-2024 11:08-0400 Heart rate 65 /min Pulm Wstr Work Phone: [facility] 09-21-2024 11:08-0400 SaO2% (BldA) [Mass fraction] 100 % Pulm Wstr Work Phone: [facility] 08-29-2024 11:41-0500 Heart rate 78 /min Valeria Toya PA-C Work Phone: [facility] 08-29-2024 11:41-0500 Respiratory rate 22 /min Valeria Toya PA-C Work Phone: [facility] 08-29-2024 11:41-0500 SaO2% (BldA) [Mass fraction] 97 % Valeria Toya PA-C Work Phone: [facility] 07-11-2024 14:31-0500 Body height 158.8 cm Valeria Toya PA-C Work Phone: [facility] 07-11-2024 14:31-0500 Body mass index (BMI) [Ratio] 16.92 kg/m2 Valeria Toya PA-C Work Phone: [facility] 07-11-2024 14:31-0500 Body weight 42.64 kg Valeria Toya PA-C Work Phone: [facility] 07-11-2024 14:31-0500 Diastolic blood pressure 60 mm[Hg] Valeria Toya PA-C Work Phone: [facility] 07-11-2024 14:31-0500 Heart rate 58 /min Valeria Toya PA-C Work Phone: [facility] 07-11-2024 14:31-0500 SaO2% (BldA) [Mass fraction] 94 % Valeria Toya PA-C Work Phone: [facility] 07-11-2024 14:31-0500 Systolic blood pressure 110 mm[Hg] Valeria Toya PA-C Work Phone: [facility] 06-18-2024 09:09-0500 Body height 158.8 cm Pac 1 Work Phone: [facility] 06-18-2024 09:09-0500 Body mass index (BMI) [Ratio] 16.92 kg/m2 Pac 1 Work Phone: [facility] 06-18-2024 09:09-0500 Body temperature 98.6 [degF] Pac 1 Work Phone: [facility] 06-18-2024 09:09-0500 Body weight 42.64 kg Pac 1 Work Phone: [facility] 06-18-2024 09:09-0500 Diastolic blood pressure 58 mm[Hg] Pac 1 Work Phone: [facility] 06-18-2024 09:09-0500 Heart rate 61 /min Pacc 1 Work Phone: [facility] 06-18-2024 09:09-0500 Respiratory rate 14 /min Pacc 1 Work Phone: [facility] 06-18-2024 09:09-0500 SaO2% (BldA) [Mass fraction] 100 % Pacc 1 Work Phone: [facility] 06-18-2024 09:09-0500 Systolic blood pressure 88 mm[Hg] Pacc 1 Work Phone: [facility] 05-18-2024 13:06-0500 Body height 157.5 cm Que Frank DIRECTOR AND PROFESSOR-DIESEL ENGINE MECHANIC Work Phone: [facility] 05-18-2024 13:06-0500 Body mass index (BMI) [Ratio] 17.41 kg/m2 Que Frank DIRECTOR AND PROFESSOR-DIESEL ENGINE MECHANIC Work Phone: [facility] 05-18-2024 13:06-0500 Body weight 43.18 kg Que Frank DIRECTOR AND PROFESSOR-DIESEL ENGINE MECHANIC Work Phone: [facility] 05-18-2024 13:06-0500 Diastolic blood pressure 70 mm[Hg] Que Frank DIRECTOR AND PROFESSOR-DIESEL ENGINE MECHANIC Work Phone: [facility] 05-18-2024 13:06-0500 Systolic blood pressure 100 mm[Hg] Que Frank DIRECTOR AND PROFESSOR-DIESEL ENGINE MECHANIC Work Phone: [facility] 05-16-2024 14:49-0500 Body height 154 cm Pulm Wstr Work Phone: [facility] 05-16-2024 14:49-0500 Body mass index (BMI) [Ratio] 17.21 kg/m2 Pulm Wstr Work Phone: [facility] 05-16-2024 14:49-0500 Body weight 40.82 kg Pulm Wstr Work Phone: [facility] 05-16-2024 14:20-0500 Body mass index (BMI) [Ratio] 16.46 kg/m2 Valeria Toya PA-C Work Phone: [facility] 05-16-2024 14:20-0500 Body weight 40.82 kg Valeria Toya PA-C Work Phone: [facility] 05-16-2024 14:20-0500 Diastolic blood pressure 62 mm[Hg] Valeria Toya PA-C Work Phone: [facility] 05-16-2024 14:20-0500 Heart rate 78 /min Valeria Toya PA-C Work Phone: [facility] 05-16-2024 14:20-0500 Respiratory rate 18 /min Valeria Toya PA-C Work Phone: [facility] 05-16-2024 14:20-0500 Systolic blood pressure 106 mm[Hg] Valeria Toya PA-C Work Phone: [facility] 04-18-2024 09:16-0400 Body height 157.5 cm Donnie Snow MD Work Phone: [facility] 04-18-2024 09:16-0400 Body mass index (BMI) [Ratio] 17.42 kg/m2 Donnie Snow MD Work Phone: [facility] 04-18-2024 09:16-0400 Body temperature 97.11 [degF] Donnie Snow MD Work Phone: [facility] 04-18-2024 09:16-0400 Body weight 43.2 kg Donnie Snow MD Work Phone: [facility] 04-18-2024 09:16-0400 Diastolic blood pressure 60 mm[Hg] Donnie Snow MD Work Phone: [facility] 04-18-2024 09:16-0400 Heart rate 65 /min Donnie Snow MD Work Phone: [facility] 04-18-2024 09:16-0400 Systolic blood pressure 98 mm[Hg] Donnie Snow MD Work Phone: [facility] 03-29-2024 13:00-0400 Body height 152.7 cm Maykel Crow MD Work Phone: [facility] 03-29-2024 13:00-0400 Body mass index (BMI) [Ratio] 18.48 kg/m2 Maykel Crow MD Work Phone: [facility] 03-29-2024 13:00-0400 Body weight 43.09 kg Maykel Crow MD Work Phone: [facility] 02-10-2024 15:54-0400 Body mass index (BMI) [Ratio] 17.61 kg/m2 Evan De MD Work Phone: [facility] 02-10-2024 15:54-0400 Body weight 43.68 kg Evan De MD Work Phone: [facility] 02-10-2024 15:54-0400 Diastolic blood pressure 64 mm[Hg] Evan De MD Work Phone: [facility] 02-10-2024 15:54-0400 Heart rate 71 /min Evan De MD Work Phone: [facility] 02-10-2024 15:54-0400 SaO2% (BldA) [Mass fraction] 99 % Evan De MD Work Phone: [facility] 02-10-2024 15:54-0400 Systolic blood pressure 90 mm[Hg] Evan De MD Work Phone: [facility] 01-25-2024 16:06-0400 Body height 152.7 cm Chasity RAMOS Work Phone: [facility] 01-25-2024 16:06-0400 Body mass index (BMI) [Ratio] 18.66 kg/m2 Chasity RAMOS Work Phone: [facility] 01-25-2024 16:06-0400 Body temperature 98.29 [degF] Reda Chaoui PA Work Phone: [facility] 01-25-2024 16:06-0400 Body weight 43.5 kg Reda Loraolyi PA Work Phone: [facility] 01-25-2024 16:06-0400 Diastolic blood pressure 54 mm[Hg] Reda Loraolyi PA Work Phone: [facility] 01-25-2024 16:06-0400 Heart rate 73 /min Reda Loraolyi PA Work Phone: [facility] 01-25-2024 16:06-0400 Systolic blood pressure 119 mm[Hg] Chasity Paulinoolyi PA Work Phone: [facility] 01-16-2024 09:58-0400 Diastolic blood pressure 62 mm[Hg] Treatment Wstr Work Phone: [facility] 01-16-2024 09:58-0400 Systolic blood pressure 97 mm[Hg] Treatment Wstr Work Phone: [facility] 01-16-2024 09:40-0400 Heart rate 69 /min Treatment Wstr Work Phone: [facility] 01-16-2024 09:40-0400 SaO2% (BldA) [Mass fraction] 94 % Treatment Wstr Work Phone: [facility] 12-16-2023 10:26-0400 Body mass index (BMI) [Ratio] 17.56 kg/m2 Injection Wstr Work Phone: [facility] 12-16-2023 10:26-0400 Body temperature 98.8 [degF] Injection Wstr Work Phone: [facility] 12-16-2023 10:26-0400 Body weight 43.55 kg Injection Wstr Work Phone: [facility] 12-16-2023 10:26-0400 Diastolic blood pressure 67 mm[Hg] Injection Wstr Work Phone: [facility] 12-16-2023 10:26-0400 Heart rate 78 /min Injection Wstr Work Phone: [facility] 12-16-2023 10:26-0400 SaO2% (BldA) [Mass fraction] 95 % Injection Wstr Work Phone: [facility] 12-16-2023 10:26-0400 Systolic blood pressure 102 mm[Hg] Injection Wstr Work Phone: [facility] 11-30-2023 13:31-0400 Body height 157.5 cm Atul Genin DO Work Phone: [facility] 11-30-2023 13:31-0400 Body mass index (BMI) [Ratio] 17.56 kg/m2 Atul Genin DO Work Phone: [facility] 11-30-2023 13:31-0400 Body weight 43.55 kg Atul Genin DO Work Phone: [facility] 11-18-2023 11:15-0400 Body mass index (BMI) [Ratio] 17.56 kg/m2 Injection Wstr Work Phone: [facility] 11-18-2023 11:15-0400 Body temperature 98.1 [degF] Injection Wstr Work Phone: [facility] 11-18-2023 11:15-0400 Body weight 43.55 kg Injection Wstr Work Phone: [facility] 11-18-2023 11:15-0400 Diastolic blood pressure 54 mm[Hg] Injection Wstr Work Phone: [facility] 11-18-2023 11:15-0400 Heart rate 73 /min Injection Wstr Work Phone: [facility] 11-18-2023 11:15-0400 SaO2% (BldA) [Mass fraction] 97 % Injection Wstr Work Phone: [facility] 11-18-2023 11:15-0400 Systolic blood pressure 97 mm[Hg] Injection Wstr Work Phone: [facility] 10-21-2023 10:59-0400 Body temperature 97.9 [degF] Injection Wstr Work Phone: [facility] 10-21-2023 10:59-0400 Body weight 43.09 kg Injection Wstr Work Phone: [facility] 10-21-2023 10:59-0400 Diastolic blood pressure 61 mm[Hg] Injection Wstr Work Phone: [facility] 10-21-2023 10:59-0400 Heart rate 71 /min Injection Wstr Work Phone: [facility] 10-21-2023 10:59-0400 SaO2% (BldA) [Mass fraction] 93 % Injection Wstr Work Phone: [facility] 10-21-2023 10:59-0400 Systolic blood pressure 108 mm[Hg] Injection Wstr Work Phone: [facility] 10-17-2023 14:12-0400 Body height 157.5 cm Donnie Snow MD Work Phone: [facility] 10-17-2023 14:12-0400 Body temperature 97.3 [degF] Donnie Snow MD Work Phone: [facility] 10-17-2023 14:12-0400 Body weight 42.19 kg Donnie Snow MD Work Phone: [facility] 10-17-2023 14:12-0400 Diastolic blood pressure 56 mm[Hg] Donnie Snow MD Work Phone: [facility] 10-17-2023 14:12-0400 Heart rate 71 /min Donnie Snow MD Work Phone: [facility] 10-17-2023 14:12-0400 Systolic blood pressure 109 mm[Hg] Donnie Snow MD Work Phone: [facility] 09-27-2023 09:45-0400 Body temperature 97.9 [degF] Sharon Abraham DIRECTOR AND PROFESSOR-DIESEL ENGINE MECHANIC Work Phone: [facility] 09-27-2023 09:45-0400 Diastolic blood pressure 76 mm[Hg] Sharon Leigh DIRECTOR AND PROFESSOR-DIESEL ENGINE MECHANIC Work Phone: [facility] 09-27-2023 09:45-0400 Heart rate 62 /min Sharon Abraham DIRECTOR AND PROFESSOR-DIESEL ENGINE MECHANIC Work Phone: [facility] 09-27-2023 09:45-0400 Systolic blood pressure 114 mm[Hg] Sharon Abraham DIRECTOR AND PROFESSOR-DIESEL ENGINE MECHANIC Work Phone: [facility] 09-23-2023 11:20-0400 Body temperature 97.9 [degF] Injection Wstr Work Phone: [facility] 09-23-2023 11:20-0400 Body weight 43.55 kg Injection Wstr Work Phone: [facility] 09-23-2023 11:20-0400 Diastolic blood pressure 60 mm[Hg] Injection Wstr Work Phone: [facility] 09-23-2023 11:20-0400 Heart rate 96 /min Injection Wstr Work Phone: [facility] 09-23-2023 11:20-0400 SaO2% (BldA) [Mass fraction] 96 % Injection Wstr Work Phone: [facility] 09-23-2023 11:20-0400 Systolic blood pressure 91 mm[Hg] Injection Wstr Work Phone: [facility] 09-20-2023 09:01-0400 Body height 157.5 cm Christopher Stentz PA-C Work Phone: [facility] 09-20-2023 09:01-0400 Body mass index (BMI) [Ratio] 17.19 kg/m2 Christopher Stentz PA-C Work Phone: [facility] 09-20-2023 09:01-0400 Body temperature 97.7 [degF] Christopher Stentz PA-C Work Phone: [facility] 09-20-2023 09:01-0400 Body weight 42.64 kg Christopher Stentz PA-C Work Phone: [facility] 09-20-2023 09:01-0400 Diastolic blood pressure 70 mm[Hg] Christopher Stentz PA-C Work Phone: [facility] 09-20-2023 09:01-0400 Heart rate 68 /min Christopher Stentz PA-C Work Phone: [facility] 09-20-2023 09:01-0400 SaO2% (BldA) [Mass fraction] 96 % Christopher Stentz PA-C Work Phone: [facility] 09-20-2023 09:01-0400 Systolic blood pressure 112 mm[Hg] Christopher Stentz PA-C Work Phone: [facility] 09-14-2023 10:16-0400 Body mass index (BMI) [Ratio] 17.6 kg/m2 Evelyn Murray DIRECTOR AND PROFESSOR-DIESEL ENGINE MECHANIC Work Phone: [facility] 09-14-2023 10:16-0400 Body weight 43.64 kg Evelyn Murray DIRECTOR AND PROFESSOR-DIESEL ENGINE MECHANIC Work Phone: [facility] 09-13-2023 13:06-0400 Body mass index (BMI) [Ratio] 17.52 kg/m2 Sharon Abraham DIRECTOR AND PROFESSOR-DIESEL ENGINE MECHANIC Work Phone: [facility] 09-13-2023 13:06-0400 Body weight 43.45 kg Sharon Abraham DIRECTOR AND PROFESSOR-DIESEL ENGINE MECHANIC Work Phone: [facility] 09-13-2023 13:06-0400 Diastolic blood pressure 72 mm[Hg] Sharon Abraham DIRECTOR AND PROFESSOR-DIESEL ENGINE MECHANIC Work Phone: [facility] 09-13-2023 13:06-0400 Systolic blood pressure 120 mm[Hg] Sharon Abraham DIRECTOR AND PROFESSOR-DIESEL ENGINE MECHANIC Work Phone: [facility] 09-08-2023 11:01-0500 Diastolic blood pressure 54 mm[Hg] Geraldo Philippe DO Work Phone: [facility] 09-08-2023 11:01-0500 Heart rate 59 /min Geraldo Philippe DO Work Phone: [facility] 09-08-2023 11:01-0500 Respiratory rate 18 /min Geraldo Philippe DO Work Phone: [facility] 09-08-2023 11:01-0500 SaO2% (BldA) [Mass fraction] 99 % Geraldo Philippe DO Work Phone: [facility] 09-08-2023 11:01-0500 Systolic blood pressure 99 mm[Hg] Geraldo Philippe DO Work Phone: [facility] 09-08-2023 08:49-0500 Body height 157.5 cm Geraldo Philippe DO Work Phone: [facility] 09-08-2023 08:49-0500 Body mass index (BMI) [Ratio] 17.74 kg/m2 Geraldo Philippe DO Work Phone: [facility] 09-08-2023 08:49-0500 Body temperature 98.01 [degF] Geraldo Philippe DO Work Phone: [facility] 09-08-2023 08:49-0500 Body weight 44 kg Geraldo Philippe DO Work Phone: [facility] 08-26-2023 11:03-0500 Body temperature 98.4 [degF] Injection Wstr Work Phone: [facility] 08-26-2023 11:03-0500 Body weight 44.91 kg Injection Wstr Work Phone: [facility] 08-26-2023 11:03-0500 Diastolic blood pressure 57 mm[Hg] Injection Wstr Work Phone: [facility] 08-26-2023 11:03-0500 Heart rate 66 /min Injection Wstr Work Phone: [facility] 08-26-2023 11:03-0500 SaO2% (BldA) [Mass fraction] 90 % Injection Wstr Work Phone: [facility] 08-26-2023 11:03-0500 Systolic blood pressure 94 mm[Hg] Injection Wstr Work Phone: [facility] 08-22-2023 10:10-0500 Body height 157.5 cm Chris Awad MD Work Phone: [facility] 08-22-2023 10:10-0500 Body temperature 97.5 [degF] Chris Awad MD Work Phone: [facility] 08-22-2023 10:10-0500 Body weight 44 kg Chris Awad MD Work Phone: [facility] 08-22-2023 10:10-0500 Diastolic blood pressure 55 mm[Hg] Chris Awad MD Work Phone: [facility] 08-22-2023 10:10-0500 Heart rate 73 /min Chris Awad MD Work Phone: [facility] 08-22-2023 10:10-0500 Respiratory rate 16 /min Chris Awad MD Work Phone: [facility] 08-22-2023 10:10-0500 SaO2% (BldA) [Mass fraction] 95 % Chris Awad MD Work Phone: [facility] 08-22-2023 10:10-0500 Systolic blood pressure 102 mm[Hg] Chris Awad MD Work Phone: [facility] 07-05-2023 11:22-0500 Body mass index (BMI) [Ratio] 17.38 kg/m2 Evan De MD Work Phone: [facility] 07-05-2023 11:22-0500 Body weight 43.09 kg Evan De MD Work Phone: [facility] 07-05-2023 11:22-0500 Diastolic blood pressure 68 mm[Hg] Evan De MD Work Phone: [facility] 07-05-2023 11:22-0500 Heart rate 51 /min Evan De MD Work Phone: [facility] 07-05-2023 11:22-0500 SaO2% (BldA) [Mass fraction] 100 % Evan De MD Work Phone: [facility] 07-05-2023 11:22-0500 Systolic blood pressure 122 mm[Hg] Evan De MD Work Phone: [facility] 06-06-2023 09:24-0500 Body height 157.5 cm Evaristo Du DIRECTOR AND PROFESSOR-DIESEL ENGINE MECHANIC Work Phone: [facility] 06-06-2023 09:24-0500 Body mass index (BMI) [Ratio] 17.67 kg/m2 Evaristo Du DIRECTOR AND PROFESSOR-DIESEL ENGINE MECHANIC Work Phone: [facility] 06-06-2023 09:24-0500 Body weight 43.82 kg Evaristo Houghd DIRECTOR AND PROFESSOR-DIESEL ENGINE MECHANIC Work Phone: [facility] 06-06-2023 09:24-0500 Diastolic blood pressure 80 mm[Hg] Evaristo Du DIRECTOR AND PROFESSOR-DIESEL ENGINE MECHANIC Work Phone: [facility] 06-06-2023 09:24-0500 Heart rate 84 /min Evaristo Du DIRECTOR AND PROFESSOR-DIESEL ENGINE MECHANIC Work Phone: [facility] 06-06-2023 09:24-0500 Systolic blood pressure 128 mm[Hg] Evaristo Du DIRECTOR AND PROFESSOR-DIESEL ENGINE MECHANIC Work Phone: [facility] 05-27-2023 15:27-0500 Body temperature 98.29 [degF] Injection Wstr Work Phone: [facility] 05-27-2023 15:27-0500 Body weight 44 kg Injection Wstr Work Phone: [facility] 05-27-2023 15:27-0500 Diastolic blood pressure 70 mm[Hg] Injection Wstr Work Phone: [facility] 05-27-2023 15:27-0500 Heart rate 67 /min Injection Wstr Work Phone: [facility] 05-27-2023 15:27-0500 Systolic blood pressure 107 mm[Hg] Injection Wstr Work Phone: [facility] 05-04-2023 11:42-0400 Body height 158.8 cm Chris Awad MD Work Phone: [facility] 05-04-2023 11:42-0400 Body temperature 98.49 [degF] Chris Awad MD Work Phone: [facility] 05-04-2023 11:42-0400 Body weight 44 kg Chris Awad MD Work Phone: [facility] 05-04-2023 11:42-0400 Diastolic blood pressure 63 mm[Hg] Chris Awad MD Work Phone: [facility] 05-04-2023 11:42-0400 Heart rate 78 /min Chris Awad MD Work Phone: [facility] 05-04-2023 11:42-0400 SaO2% (BldA) [Mass fraction] 95 % Chris Awad MD Work Phone: [facility] 05-04-2023 11:42-0400 Systolic blood pressure 119 mm[Hg] Chris Awad MD Work Phone: [facility] 04-28-2023 14:29-0400 Body temperature 98.4 [degF] Injection Wstr Work Phone: [facility] 04-28-2023 14:29-0400 Body weight 44 kg Injection Wstr Work Phone: [facility] 04-28-2023 14:29-0400 Diastolic blood pressure 60 mm[Hg] Injection Wstr Work Phone: [facility] 04-28-2023 14:29-0400 Heart rate 84 /min Injection Wstr Work Phone: [facility] 04-28-2023 14:29-0400 Systolic blood pressure 96 mm[Hg] Injection Wstr Work Phone: [facility] 04-23-2023 10:57-0400 Diastolic blood pressure 66 mm[Hg] [facility] 04-23-2023 10:57-0400 Heart rate 84 /min [facility] 04-23-2023 10:57-0400 Respiratory rate 18 /min [facility] 04-23-2023 10:57-0400 SaO2% (BldA) [Mass fraction] 96 % [facility] 04-23-2023 10:57-0400 Systolic blood pressure 97 mm[Hg] [facility] 04-23-2023 10:05-0400 Body temperature 97.8 [degF] [facility] 04-23-2023 08:54-0400 Body height 162.56 cm [facility] 02-28-2023 11:30-0400 Body temperature 97 [degF] Injection Wstr Work Phone: [facility] 02-28-2023 11:30-0400 Body weight 45.36 kg Injection Wstr Work Phone: [facility] 02-28-2023 11:30-0400 Diastolic blood pressure 74 mm[Hg] Injection Wstr Work Phone: [facility] 02-28-2023 11:30-0400 Heart rate 81 /min Injection Wstr Work Phone: [facility] 02-28-2023 11:30-0400 Systolic blood pressure 109 mm[Hg] Injection Wstr Work Phone: [facility] 01-31-2023 15:20-0400 Diastolic blood pressure 62 mm[Hg] Injection Wstr Work Phone: [facility] 01-31-2023 15:20-0400 Systolic blood pressure 104 mm[Hg] Injection Wstr Work Phone: [facility] 01-31-2023 14:24-0400 Body temperature 98.49 [degF] Injection Wstr Work Phone: [facility] 01-31-2023 14:24-0400 Body weight 46.27 kg Injection Wstr Work Phone: [facility] 01-31-2023 14:24-0400 Heart rate 54 /min Injection Wstr Work Phone: [facility] 01-19-2023 11:10-0400 Body height 157.5 cm Chris Awad MD Work Phone: [facility] 01-19-2023 11:10-0400 Body temperature 96.49 [degF] Chris Awad MD Work Phone: [facility] 01-19-2023 11:10-0400 Body weight 45.36 kg Chris Awad MD Work Phone: [facility] 01-19-2023 11:10-0400 Diastolic blood pressure 57 mm[Hg] Chris Awad MD Work Phone: [facility] 01-19-2023 11:10-0400 Heart rate 70 /min Chris Awad MD Work Phone: [facility] 01-19-2023 11:10-0400 Respiratory rate 16 /min Chris Awad MD Work Phone: [facility] 01-19-2023 11:10-0400 SaO2% (BldA) [Mass fraction] 91 % Chris Awad MD Work Phone: [facility] 01-19-2023 11:10-0400 Systolic blood pressure 110 mm[Hg] Chris Awad MD Work Phone: [facility] 01-13-2023 12:56-0400 Body height 158.8 cm Donnie Snow MD Work Phone: [facility] 01-13-2023 12:56-0400 Body temperature 97.81 [degF] Donnie Snow MD Work Phone: [facility] 01-13-2023 12:56-0400 Body weight 46.27 kg Donnie Snow MD Work Phone: [facility] 01-13-2023 12:56-0400 Diastolic blood pressure 57 mm[Hg] Donnie Snow MD Work Phone: [facility] 01-13-2023 12:56-0400 Heart rate 80 /min Donnie Snow MD Work Phone: [facility] 01-13-2023 12:56-0400 Systolic blood pressure 114 mm[Hg] Donnie Snow MD Work Phone: [facility] 11-08-2022 11:23-0400 Body height 158.8 cm Vandana Godfray PA-C Work Phone: [facility] 11-08-2022 11:23-0400 Body weight 45.5 kg Vandana Godfray PA-C Work Phone: [facility] 11-08-2022 11:23-0400 Diastolic blood pressure 73 mm[Hg] Vandana Godfray PA-C Work Phone: [facility] 11-08-2022 11:23-0400 Heart rate 70 /min Vandana Godfray PA-C Work Phone: [facility] 11-08-2022 11:23-0400 Respiratory rate 16 /min Vandana Godfray PA-C Work Phone: [facility] 11-08-2022 11:23-0400 SaO2% (BldA) [Mass fraction] 96 % Vandana Turnerfray PA-C Work Phone: [facility] 11-08-2022 11:23-0400 Systolic blood pressure 125 mm[Hg] Vandana Godfray PA-C Work Phone: [facility] 10-18-2022 13:01-0400 Body temperature 97.4 [degF] Evaristo Du Work Phone: [facility] 300 Work Phone: 09-21-2022 13:20-0400 Body height 157.5 cm Evaristo Du DIRECTOR AND PROFESSOR-DIESEL ENGINE MECHANIC Work Phone: [facility] 09-21-2022 13:20-0400 Body mass index (BMI) [Ratio] 19.26 kg/m2 Evaristo Du DIRECTOR AND PROFESSOR-DIESEL ENGINE MECHANIC Work Phone: [facility] 09-21-2022 13:20-0400 Body weight 47.76 kg Evaristo Ana Laura DIRECTOR AND PROFESSOR-DIESEL ENGINE MECHANIC Work Phone: [facility] 09-21-2022 13:20-0400 Diastolic blood pressure 74 mm[Hg] Evaristo Ana Laura DIRECTOR AND PROFESSOR-DIESEL ENGINE MECHANIC Work Phone: [facility] 09-21-2022 13:20-0400 Heart rate 88 /min Evaristo Du DIRECTOR AND PROFESSOR-DIESEL ENGINE MECHANIC Work Phone: [facility] 09-21-2022 13:20-0400 Systolic blood pressure 118 mm[Hg] Evaristo Ana Laura DIRECTOR AND PROFESSOR-DIESEL ENGINE MECHANIC Work Phone: [facility] 09-19-2022 19:17-0400 Diastolic blood pressure 74 mm[Hg] Text Entry [facility] 09-19-2022 19:17-0400 Heart rate 82 /min Text Entry [facility] 09-19-2022 19:17-0400 Respiratory rate 20 /min Text Entry [facility] 09-19-2022 19:17-0400 SaO2% (BldA) [Mass fraction] 95 % Text Entry [facility] 09-19-2022 19:17-0400 Systolic blood pressure 108 mm[Hg] Text Entry [facility] 09-19-2022 14:41-0400 Body height 157.4 cm Text Entry [facility] 09-19-2022 14:41-0400 Body temperature 97.88 [degF] Text Entry [facility] 09-19-2022 14:41-0400 Body weight 51.3 kg Text Entry [facility] 07-22-2022 13:14-0500 Body height 157.48 cm Evaristo Du Work Phone: [facility] 300 Work Phone: 07-22-2022 13:14-0500 Body temperature 96.6 [degF] Evaristo Du Work Phone: [facility] 300 Work Phone: 04-26-2022 15:00-0400 Body height 157.48 cm Evaristo Salinas Mcintosh Work Phone: [facility] Work Phone: 04-26-2022 15:00-0400 Diastolic blood pressure 80 mm[Hg] Evaristo L Mcintosh Work Phone: [facility] Work Phone: 04-26-2022 15:00-0400 Heart rate 65 /min Evaristo Salinas Mcintosh Work Phone: [facility] Work Phone: 04-26-2022 15:00-0400 Systolic blood pressure 134 mm[Hg] Evaristo Salinas Mcintosh Work Phone: [facility] Work Phone: 04-22-2022 16:30-0400 Diastolic blood pressure 71 mm[Hg] Text Entry [facility] 04-22-2022 16:30-0400 Heart rate 53 /min Text Entry [facility] 04-22-2022 16:30-0400 Respiratory rate 16 /min Text Entry [facility] 04-22-2022 16:30-0400 SaO2% (BldA) [Mass fraction] 100 % Text Entry [facility] 04-22-2022 16:30-0400 Systolic blood pressure 114 mm[Hg] Text Entry [facility] 04-22-2022 12:07-0400 Body height 160 cm Text Entry [facility] 04-22-2022 12:07-0400 Body temperature 98.06 [degF] Text Entry [facility] 04-22-2022 12:07-0400 Body weight 47.7 kg Text Entry [facility] 04-02-2022 10:16-0400 Body height 157.48 cm Evaristo L Ana Laura Work Phone: [facility] 300 Work Phone: 04-02-2022 10:16-0400 Body mass index (BMI) [Ratio] 19.57 kg/m2 Evaristo L Ana Laura Work Phone: [facility] 300 Work Phone: 04-02-2022 10:16-0400 Body surface area Derived from formula 1.47 m2 Evaristo L Mcintosh Work Phone: [facility] 300 Work Phone: 04-02-2022 10:16-0400 Body temperature 98 [degF] Evaristo L Mcintosh Work Phone: [facility] 300 Work Phone: 04-02-2022 10:16-0400 Body weight 48.54 kg Evaristo L Mcintosh Work Phone: [facility] 300 Work Phone: 02-02-2022 10:47-0400 Body height 157.48 cm Evaristo L Ana Laura Work Phone: [facility] 300 Work Phone: 02-02-2022 10:47-0400 Body mass index (BMI) [Ratio] 19.02 kg/m2 Evaristo L Ana Laura Work Phone: [facility] 300 Work Phone: 02-02-2022 10:47-0400 Body surface area Derived from formula 1.45 m2 Evaristo L Mcintosh Work Phone: [facility] 300 Work Phone: 02-02-2022 10:47-0400 Body temperature 97.5 [degF] Evaristo L Mcintosh Work Phone: [facility] 300 Work Phone: 02-02-2022 10:47-0400 Body weight 47.17 kg Evaristo L Ana Laura Work Phone: [facility] 300 Work Phone: 01-12-2022 10:49-0400 Body height 157.48 cm Evaristo Du Work Phone: [facility] 300 Work Phone: 01-12-2022 10:49-0400 Body mass index (BMI) [Ratio] 19.02 kg/m2 Evaristo Du Work Phone: [facility] 300 Work Phone: 01-12-2022 10:49-0400 Body surface area Derived from formula 1.45 m2 Evaristo Du Work Phone: [facility] 300 Work Phone: 01-12-2022 10:49-0400 Body temperature 97.5 [degF] Evaristo Du Work Phone: [facility] 300 Work Phone: 01-12-2022 10:49-0400 Body weight 47.17 kg Evaristo Du Work Phone: [facility] 300 Work Phone: 12-15-2021 09:57-0400 Body height 157.48 cm Evaristo Du Work Phone: [facility] 300 Work Phone: 12-15-2021 09:57-0400 Body mass index (BMI) [Ratio] 19.02 kg/m2 Evaristo Du Work Phone: [facility] 300 Work Phone: 12-15-2021 09:57-0400 Body surface area Derived from formula 1.45 m2 Evaristo Du Work Phone: [facility] 300 Work Phone: 12-15-2021 09:57-0400 Body temperature 97.1 [degF] Evaristo Houghd [facility] 300 Work Phone: 12-15-2021 09:57-0400 Body weight 47.17 kg Evaristo Houghd Work Phone: [facility] 300 Work Phone: 12-09-2021 08:53-0400 Body height 156.84 cm Evaristo Houghd Work Phone: [facility] Work Phone: 12-09-2021 08:53-0400 Body mass index (BMI) [Ratio] 19.59 kg/m2 Evaristo Houghd Work Phone: [facility] Work Phone: 12-09-2021 08:53-0400 Body surface area Derived from formula 1.46 m2 Evaristo Houghd Work Phone: [facility] Work Phone: 12-09-2021 08:53-0400 Body weight 48.2 kg Evaristo Houghd Work Phone: [facility] Work Phone: 12-09-2021 08:53-0400 Diastolic blood pressure 64 mm[Hg] Evaristo Salinas Mcintosh Work Phone: [facility] Work Phone: 12-09-2021 08:53-0400 Heart rate 60 /min Evaristo Salinas Mcintosh Work Phone: [facility] Work Phone: 12-09-2021 08:53-0400 Systolic blood pressure 118 mm[Hg] Evaristo Salinas Mcintosh Work Phone: [facility] Work Phone: 05-25-2021 10:09-0500 Body height 156.84 cm Sharon L Leigh Work Phone: [facility] Work Phone: 05-25-2021 10:09-0500 Body mass index (BMI) [Ratio] 20.36 kg/m2 Sharon L Leigh Work Phone: [facility] Work Phone: 05-25-2021 10:09-0500 Body surface area Derived from formula 1.48 m2 Sharon L Leigh Work Phone: [facility] Work Phone: 05-25-2021 10:09-0500 Body weight 50.1 kg Sharon L Leigh Work Phone: [facility] Work Phone: 05-25-2021 10:09-0500 Diastolic blood pressure 76 mm[Hg] Sharon L Leigh Work Phone: [facility] Work Phone: 05-25-2021 10:09-0500 Heart rate 72 /min Sharon L Leigh Work Phone: [facility] Work Phone: 05-25-2021 10:09-0500 Systolic blood pressure 116 mm[Hg] Sharon L Leigh Work Phone: [facility] Work Phone: 04-30-2021 14:09-0400 Body height 156.84 cm Sharon L Leigh Work Phone: [facility] 400 DO Work Phone: 04-30-2021 14:09-0400 Body mass index (BMI) [Ratio] 20.17 kg/m2 Sharon L Leigh Work Phone: [facility] 400 DO Work Phone: 04-30-2021 14:09-0400 Body surface area Derived from formula 1.47 m2 Sharon Abraham Work Phone: [facility] 400 DO Work Phone: 04-30-2021 14:09-0400 Body temperature 98.2 [degF] Sharon Abraham Work Phone: [facility] 400 DO Work Phone: 04-30-2021 14:09-0400 Body weight 49.61 kg Sharon Abraham Work Phone: [facility] 400 DO Work Phone: 04-30-2021 14:09-0400 Diastolic blood pressure 62 mm[Hg] Sharon Abraham Work Phone: [facility] 400 DO Work Phone: 04-30-2021 14:09-0400 Heart rate 80 /min Sharno Abraham Work Phone: [facility] 400 DO Work Phone: 04-30-2021 14:09-0400 SaO2% (BldA) [Mass fraction] 92 % Sharon Abraham Work Phone: [facility] 400 DO Work Phone: 04-30-2021 14:09-0400 Systolic blood pressure 102 mm[Hg] Sharon Abraham Work Phone: [facility] 400 DO Work Phone: 03-12-2021 11:06-0400 Body height 156.84 cm Sharon Abraham Work Phone: [facility] Work Phone: 03-12-2021 11:06-0400 Body mass index (BMI) [Ratio] 20.28 kg/m2 Sharon Abraham Work Phone: [facility] Work Phone: 03-12-2021 11:06-0400 Body surface area Derived from formula 1.48 m2 Sharon Abraham Work Phone: [facility] Work Phone: 03-12-2021 11:06-0400 Body weight 49.9 kg Sharon Abraham Work Phone: [facility] Work Phone: 03-12-2021 11:06-0400 Diastolic blood pressure 72 mm[Hg] Sharon Abraham Work Phone: [facility] Work Phone: 03-12-2021 11:06-0400 Heart rate 68 /min Sharon Abraham Work Phone: [facility] Work Phone: 03-12-2021 11:06-0400 Systolic blood pressure 110 mm[Hg] Sharon Abraham Work Phone: [facility] Work Phone: 03-11-2021 09:19-0400 Body height 156.84 cm Sharon Abraham Work Phone: [facility] 400 DO Work Phone: 03-11-2021 09:19-0400 Body mass index (BMI) [Ratio] 19.98 kg/m2 Sharon Abraham Work Phone: [facility] 400 DO Work Phone: 03-11-2021 09:19-0400 Body surface area Derived from formula 1.47 m2 Sharon Abraham Work Phone: [facility] 400 DO Work Phone: 03-11-2021 09:19-0400 Body temperature 98.7 [degF] Sharon Abraham Work Phone: [facility] 400 DO Work Phone: 03-11-2021 09:19-0400 Body weight 49.16 kg Sharon Abraham Work Phone: [facility] 400 DO Work Phone: 03-11-2021 09:19-0400 Diastolic blood pressure 68 mm[Hg] Sharon Abraham Work Phone: [facility] 400 DO Work Phone: 03-11-2021 09:19-0400 Heart rate 78 /min Sharon Abraham Work Phone: [facility] 400 DO Work Phone: 03-11-2021 09:19-0400 SaO2% (BldA) [Mass fraction] 92 % Sharon Abraham Work Phone: [facility] 400 DO Work Phone: 03-11-2021 09:19-0400 Systolic blood pressure 112 mm[Hg] Sharon Abraham Work Phone: [facility] 400 DO Work Phone: 01-22-2021 13:38-0400 Body height 156.84 cm Sharon Abraham Work Phone: -[facility] 400 DO Work Phone: 01-22-2021 13:38-0400 Body mass index (BMI) [Ratio] 19.96 kg/m2 Sharon Abraham [facility] 400 DO Work Phone: 01-22-2021 13:38-0400 Body surface area Derived from formula 1.47 m2 Sharon Abraham Work Phone: [facility] 400 DO Work Phone: 01-22-2021 13:38-0400 Body temperature 98 [degF] Sharon Abraham Work Phone: [facility] 400 DO Work Phone: 01-22-2021 13:38-0400 Body weight 49.1 kg Sharon Abraham Work Phone: [facility] 400 DO Work Phone: 01-22-2021 13:38-0400 Diastolic blood pressure 62 mm[Hg] Sharon Abraham Work Phone: [facility] 400 DO Work Phone: 01-22-2021 13:38-0400 Heart rate 68 /min Sharon Abraham Work Phone: [facility] 400 DO Work Phone: 01-22-2021 13:38-0400 SaO2% (BldA) [Mass fraction] 93 % Sharon Abraham [facility] 400 DO Work Phone: 01-22-2021 13:38-0400 Systolic blood pressure 100 mm[Hg] Sharon Abraham [facility] 400 DO Work Phone: 01-07-2021 15:37-0400 Body height 156.84 cm Sharon Abraham [facility] 400 DO Work Phone: 01-07-2021 15:37-0400 Body mass index (BMI) [Ratio] 20.01 kg/m2 Sharon Abraham [facility] 400 DO Work Phone: 01-07-2021 15:37-0400 Body surface area Derived from formula 1.47 m2 Sharon Abraham Work Phone: [facility] 400 DO Work Phone: 01-07-2021 15:37-0400 Body temperature 97.8 [degF] Sharon Abraham Work Phone: [facility] 400 DO Work Phone: 01-07-2021 15:37-0400 Body weight 49.22 kg Sharon Abraham Work Phone: [facility] 400 DO Work Phone: 01-07-2021 15:37-0400 Diastolic blood pressure 68 mm[Hg] Sharon Abraham Work Phone: [facility] 400 DO Work Phone: 01-07-2021 15:37-0400 Heart rate 74 /min Sharon Abraham Work Phone: [facility] 400 DO Work Phone: 01-07-2021 15:37-0400 Systolic blood pressure 104 mm[Hg] Sharon Abraham Work Phone: [facility] 400 DO Work Phone: 12-25-2020 08:55-0400 Body height 156.84 cm Sharon Abraham Work Phone: [facility] 400 DO Work Phone: 12-25-2020 08:55-0400 Body mass index (BMI) [Ratio] 19.78 kg/m2 Sharon Abraham Work Phone: [facility] 400 DO Work Phone: 12-25-2020 08:55-0400 Body surface area Derived from formula 1.46 m2 Sharon Abraham Work Phone: [facility] 400 DO Work Phone: 12-25-2020 08:55-0400 Body temperature 98.2 [degF] Sharon Abraham Work Phone: [facility] 400 DO Work Phone: 12-25-2020 08:55-0400 Body weight 48.65 kg Sharon Abraham Work Phone: [facility] 400 DO Work Phone: 12-25-2020 08:55-0400 Diastolic blood pressure 68 mm[Hg] Sharon Abraham Work Phone: [facility] 400 DO Work Phone: 12-25-2020 08:55-0400 Heart rate 80 /min Sharon Abraham Work Phone: [facility] 400 DO Work Phone: 12-25-2020 08:55-0400 SaO2% (BldA) [Mass fraction] 86 % Sharon Abraham Work Phone: [facility] 400 DO Work Phone: 12-25-2020 08:55-0400 Systolic blood pressure 110 mm[Hg] Sharon L Leigh Work Phone: [facility] 400 DO Work Phone: 12-10-2020 10:30-0400 Body height 156.84 cm Sharon Abraham Work Phone: [facility] Work Phone: 12-10-2020 10:30-0400 Body mass index (BMI) [Ratio] 19.81 kg/m2 Sharon Abraham Work Phone: [facility] Work Phone: 12-10-2020 10:30-0400 Body surface area Derived from formula 1.46 m2 Sharon Abraham Work Phone: [facility] Work Phone: 12-10-2020 10:30-0400 Body weight 48.73 kg Sharon L Leigh Work Phone: [facility] Work Phone: 12-10-2020 10:30-0400 Diastolic blood pressure 70 mm[Hg] Sharon L Leigh Work Phone: [facility] Work Phone: 12-10-2020 10:30-0400 Heart rate 80 /min Sharon Abraham Work Phone: [facility] Work Phone: 12-10-2020 10:30-0400 Systolic blood pressure 114 mm[Hg] Sharon Abraham Work Phone: [facility] Work Phone: 11-12-2020 10:58-0400 Body height 161.29 cm [facility] 11-12-2020 10:58-0400 Body height 63.5 cm [facility] 11-12-2020 10:58-0400 Body mass index (BMI) [Ratio] 18.31 kg/m2 [facility] 11-12-2020 10:58-0400 Body weight 105 kg [facility] 11-12-2020 10:58-0400 Body weight 47.63 kg [facility] 08-07-2020 15:04-0500 BMI (Body Mass Index) 19.43 kg/m2 Ryan Nag Mallapareddi [facility] Work Phone: 08-07-2020 15:04-0500 Body weight 47.76 kg Ryan Nag Mallapareddi [facility] Work Phone: 08-07-2020 15:04-0500 BP Diastolic 64 mm[Hg] Ryan Nag Mallapareddi [facility] Work Phone: 08-07-2020 15:04-0500 BP Systolic 104 mm[Hg] Ryan Nag Mallapareddi [facility] Work Phone: 08-07-2020 15:04-0500 BSA (Body Surface Area) 1.45 m2 Ryan Nag Mallapareddi [facility] Work Phone: 08-07-2020 15:04-0500 Height 156.79 cm Ryan Nag Mallapareddi [facility] Work Phone: 08-07-2020 15:04-0500 Pulse (Heart Rate) 84 /min Ryan Nag Mallapareddi [facility] Work Phone: 07-18-2020 17:04-0500 BMI (Body Mass Index) 19.44 kg/m2 Ryan Nag Mallapareddi [facility] Work Phone: 07-18-2020 17:04-0500 Body weight 47.79 kg Ryan Nag Mallapareddi [facility] Work Phone: 07-18-2020 17:04-0500 BP Diastolic 68 mm[Hg] Ryan Nag Mallapareddi [facility] Work Phone: 07-18-2020 17:04-0500 BP Systolic 100 mm[Hg] Ryan Nag Mallapareddi [facility] Work Phone: 07-18-2020 17:04-0500 BSA (Body Surface Area) 1.45 m2 Ryan Nag Mallapareddi [facility] Work Phone: 07-18-2020 17:04-0500 Height 156.8 cm Ryan Nag Mallapareddi [facility] Work Phone: 07-18-2020 17:04-0500 Pulse (Heart Rate) 84 /min Ryan Nag Mallapareddi [facility] Work Phone: Encounters Encounter Date Encounter Type Care Provider Facility Start: 11-22-2024 End: 11-30-2024 ambulatory Vincenzo Lynn APRN.DIESEL ENGINE MECHANIC Work Phone: Pulmonary Medicine Comment on above: Oxygen /head gear Start: 11-14-2024 End: 11-14-2024 Subsequent hospital visit by physician Xr [facility] Work Phone: Radiology Comment on above: Pneumonia of left lo wer lobe due to infectious organism [J18.9] Start: 11-14-2024 End: 11-14-2024 Office outpatient visit 15 minutes Vincenzo Lynn APRN.DIESEL ENGINE MECHANIC Work Phone: Pulmonary Medicine Comment on above: ILD (interstitial karine ng disease) (HCC) (Primary Dx); Pulmonary aspiration of gastric contents, subsequent encounter; Pneumonia of left lower lobe due to infectious organism; Chronic hypoxemic respiratory failure (HCC) Start: 11-14-2024 End: 11-14-2024 ambulatory EVAN L KENISHA Facility:[facility] Start: 11-09-2024 ambulatory EVAN L KENISHA Facilit y:[facility] Start: 11-09-2024 End: 11-09-2024 Subsequent hospital visit by physician Bone Density [facility] Work Phone: Radiology Comment on above: Age-related osteopor osis without current pathological fracture [M81.0] Start: 10-17-2024 End: 10-17-2024 Orders Only Valeria Pittman PA-C Work Phone: Pulmonary Medicine Comment on above: Influenza due to inf luenza A subtype H1N1 virus with pneumonia (Primary Dx); Chronic hypoxemic respiratory failure (HCC); ILD (interstitial lung disease) (HCC) Start: 10-16-2024 End: 10-17-2024 Telephone encounter Murphy Bills MD Work Phone: Pulmonary Medicine Start: 09-25-2024 End: 09-25-2024 ambulatory EVAN BATESER Facility:[facility] Start: 09-25-2024 End: 09-25-2024 Patient encounter procedure Heri Pappas PA-C Work Phone: Orthopedics Comment on above: Status post reverse total shoulder replacement, right (Primary Dx) Start: 09-21-2024 End: 09-21-2024 ambulatory Pulm Lab [facility] Work Phone: [facility] Comment on above: Spirometry Start: 09-21-2024 End: 09-21-2024 Patient encounter procedure Pulm [facility] Work Phone: PULM LAB [facility] Start: 09-14-2024 End: 09-17-2024 Telephone encounter Valeria Pittman PA-C Work Phone: Pulmonary Medicine Comment on above: Orders (Oxygen) Start: 08-29-2024 End: 08-29-2024 Subsequent hospital visit by physician Xr [facility] Work Phone: Radiology Comment on above: Acute cough [R05.1] Start: 08-29-2024 End: 08-29-2024 ambulatory [facility] Facility:[facility] Start: 08-29-2024 End: 08-29-2024 Patient encounter procedure Valeria Pittman PA-C Work Phone: Pulmonary Medicine Comment on above: Acute cough (Primary Dx); Influenza due to influenza A subtype H1N1 virus with pneumonia; ILD (interstitial lung disease) (HCC); Systemic sclerosis with myopathy (HCC); Pulmonary aspiration of gastric contents, subsequent encounter Start: 08-21-2024 End: 08-21-2024 Refill Donnie Snow MD Work Phone: Rheumatology Comment on above: Refill Request Start: 08-18-2024 ambulatory Chele Quesada Fac ility:[facility] Start: 08-18-2024 End: 08-21-2024 Evaluation and management of inpatient Chele Quesada Facility:[facility] Start: 08-13-2024 End: 08-13-2024 ambulatory [facility] Facility:[facility] Start: 08-13-2024 End: 08-13-2024 Nursing evaluation of patient and report Kala Pino RN Work Phone: Orthopedics Comment on above: S/P reverse total sh oulder arthroplasty, right (Primary Dx) Start: 07-17-2024 End: 07-17-2024 Nursing evaluation of patient and report Kala Pino RN Work Phone: Orthopedics Comment on above: S/P reverse total sh oulder arthroplasty, right (Primary Dx) Start: 07-17-2024 End: 07-17-2024 ambulatory EVAN DE Facility:[facility] Start: 07-17-2024 Encounter for other preprocedural examination EVAN DE [facility] Start: 07-17-2024 End: 07-17-2024 Preprocedural examination done Xr [facility] Start: 07-17-2024 End: 07-17-2024 Subsequent hospital visit by physician Xr [facility] Comment on above: Glenohumeral arthrit is, right [M19.011] Start: 07-11-2024 End: 07-11-2024 ambulatory EVAN DE Facility:[facility] Start: 07-11-2024 End: 07-11-2024 Patient encounter procedure Valeria Pittman PA-C Work Phone: Pulmonary Medicine Comment on above: ILD (interstitial karine ng disease) (HCC) (Primary Dx); Systemic sclerosis with myopathy (HCC); Pulmonary aspiration of gastric contents, subsequent encounter; Polymyositis (HCC) Start: 07-02-2024 End: 07-07-2024 Evaluation and management of inpatient EVAN DE [facility] [facility] Start: 06-19-2024 End: 06-19-2024 Office outpatient visit 25 minutes Que Frank DIRECTOR AND PROFESSOR-DIESEL ENGINE MECHANIC Work Phone: [facility] Comment on above: Scleroderma (Multi) (Primary Dx); Restless leg syndrome Start: 06-19-2024 End: 06-19-[address] [facility] Ambulatory Start: 06-18-2024 Encounter for other preprocedural examination EVAN DE [facility] Start: 06-18-2024 End: 06-18-2024 Preprocedural examination done Pacc Manoj 1 Work Phone: [facility] Work Phone: Start: 06-18-2024 End: 06-20-2024 PAT Pacc [facility] 1 Work Phone: Pre Anesthesia Comment on above: Pre-operative examin ation (Primary Dx); Systemic sclerosis; CREST; Glenohumeral arthritis, right; Pre-op exam; Restrictive lung disease, Acute Productive Cough; Sleep apnea, unspecified type; Protein-calorie malnutrition, unspecified severity (HCC); Hypothyroidism, unspecified type; Age-related osteoporosis without current pathological fracture; Polymyositis (HCC); Ischemia of digits of hand; Episode of recurrent major depressive disorder, unspecified depression episode severity (HCC); Occipital neuralgia of right side; Acquired fusion of cervical spine; Restless leg syndrome; Palpitations; Raynaud's disease without gangrene; Urine, incontinence, stress female; Muscular deconditioning; Dysphagia, unspecified type Pulmonary Optimizati on Start: 06-18-2024 End: 06-18-2024 Preprocedural examination done Mri (I-Stat/1.5t) Work Phone: [facility] Start: 06-18-2024 End: 06-18-2024 Subsequent hospital visit by physician Mri Radio [facility] (I-Stat/1.5t) Work Phone: Radiology Comment on above: Glenohumeral arthrit is, right [M19.011] Start: 06-13-2024 End: 06-13-2024 ambulatory EVAN ED Facility:[facility] Start: 05-30-2024 End: 05-31-2024 Refill Donnie Snow MD Work Phone: Rheumatology Comment on above: Refill Request Start: 05-28-2024 End: 05-28-2024 ambulatory Maykel Crow MD Work Phone: Orthopaedics Start: 05-28-2024 End: 05-28-2024 Preprocedural examination done Maykel Crow MD Work Phone: [facility] Start: 05-18-2024 End: 05-18-2024 Office outpatient visit 25 minutes Que Frank DIRECTOR AND PROFESSOR-DIESEL ENGINE MECHANIC Work Phone: [facility] Comment on above: Scleroderma (Multi) (Primary Dx); Restless leg syndrome Start: 05-18-2024 End: 05-18-[address] [facility] Ambulatory Start: 05-16-2024 End: 05-16-2024 ambulatory Pulm Lab [facility] Work Phone: PULM LAB [facility] Comment on above: Spirometry Start: 05-16-2024 End: 05-16-2024 Patient encounter procedure Pulm Lab [facility] Work Phone: PULM LAB [facility] Comment on above: ILD (interstitial karine ng disease) (HCC) (Primary Dx); Systemic sclerosis with myopathy (HCC); Pulmonary aspiration of gastric contents, subsequent encounter Start: 04-18-2024 End: 04-18-2024 ambulatory [facility] Facility:[facility] Start: 04-18-2024 End: 04-18-2024 Patient encounter procedure Donnie Snow MD Work Phone: Rheumatology Comment on above: Age-related osteopor osis without current pathological fracture (Primary Dx); Systemic sclerosis (HCC); Skin lesion; Raynaud's disease without gangrene; Restrictive lung disease, Acute Productive Cough; Polymyositis (HCC) Start: 03-29-2024 End: 03-29-2024 ambulatory [facility] Facility:[facility] Start: 03-29-2024 End: 03-29-2024 Patient encounter procedure Maykel Crow MD Work Phone: Orthopaedics Comment on above: Glenohumeral arthrit is, right (Primary Dx) Start: 03-12-2024 End: 03-12-2024 ambulatory [facility] Facility:[facility] Start: 03-01-2024 End: 03-03-2024 Refill Donnie Snow MD Work Phone: Rheumatology Comment on above: Refill Request Start: 02-10-2024 End: 02-10-2024 Office outpatient visit 25 minutes Evan De MD Work Phone: [facility] Comment on above: Restless leg syndrom e (Primary Dx); Anxiety and depression; Protein-calorie malnutrition, unspecified severity (Multi); Colon cancer screening Start: 02-10-2024 End: 02-10-2024 [facility] Ambulatory Start: 02-03-2024 End: 02-03-2024 ambulatory EVAN L [facility] Facility:[facility] Start: 01-25-2024 End: 01-25-2024 Patient encounter procedure Chasity RAMOS Work Phone: Rheumatology Comment on above: Systemic scleroderma (HCC) (Primary Dx) Start: 01-25-2024 End: 01-25-2024 ambulatory EVAN L [facility] Facility:[facility] Start: 01-20-2024 End: 01-20-2024 ambulatory EVAN L [facility] Facility:[facility] Start: 01-16-2024 End: 01-16-2024 ambulatory [facility] Hematology/Oncology Comment on above: Age-related osteopor osis without current pathological fracture (Primary Dx) Start: 01-16-2024 End: 01-16-2024 Patient encounter procedure Treatment Rm 15 Justin [facility] Work Phone: Hematology/Oncology Start: 12-16-2023 End: 12-16-2023 ambulatory Injection Justin [facility] Work Phone: Hematology/Oncology Comment on above: Age-related osteopor osis without current pathological fracture (Primary Dx) Start: 12-14-2023 Get Medical Advice Donnie sandoval MD Work Phone: Rheumatology Comment on above: New refill request f or Ropinerol. 25 Start: 12-07-2023 Refill Donnie Fulton Work Phone: Rheumatology Comment on above: Refill Request Start: 12-06-2023 ambulatory Atul A Genin DO Work Phone: [facility] Start: 12-06-2023 Patient encounter procedure Atul A Genin DO Work Phone: [facility] Comment on above: Thank you /Sorry Start: 11-30-2023 End: 11-30-2023 ambulatory EVAN L KENISHA Facility:[facility] Start: 11-30-2023 End: 11-30-2023 Office outpatient new 45 minutes Atul A Genin DO Work Phone: [facility] Comment on above: Decreased range of m otion of right shoulder (Primary Dx); Biceps tendonitis on right; Primary osteoarthritis of right shoulder; Restrictive lung disease, Acute Productive Cough; Muscular deconditioning Start: 11-29-2023 End: 11-29-2023 ambulatory EVAN DE Facility:[facility] Start: 11-29-2023 End: 11-29-2023 Subsequent hospital visit by physician Xr [facility] Manoj Mob Work Phone: Radiology Comment on above: Pain [R52] Dyspnea on exertion [R06.09] Start: 11-18-2023 End: 11-18-2023 ambulatory Injection Justin [facility] Work Phone: Hematology/Oncology Comment on above: Age-related osteopor osis without current pathological fracture (Primary Dx) Start: 11-17-2023 Refill Donnie Futlon Work Phone: Rheumatology Comment on above: Refill Request Start: 11-16-2023 End: 11-16-2023 Subsequent hospital visit by physician [facility] [employer] Comment on above: Arrived Start: 11-16-2023 End: 11-16-2023 ambulatory [facility] Start: 11-10-2023 End: 11-10-2023 Patient encounter procedure Murphy Bills MD Work Phone: Pulmonary Medicine Comment on above: ILD (interstitial karine ng disease) (HCC) (Primary Dx); Systemic sclerosis with myopathy (HCC); Pulmonary aspiration of gastric contents, subsequent encounter Start: 10-25-2023 Telephone encounter Donnie chi MD Work Phone: Rheumatology Comment on above: Appointment Start: 10-21-2023 End: 10-21-2023 ambulatory Injection Justin [facility] Work Phone: Hematology/Oncology Comment on above: Age-related osteopor osis without current pathological fracture (Primary Dx) Start: 10-20-2023 Orders Only Donnie Fulton Work Phone: Rheumatology Start: 10-17-2023 End: 10-17-2023 Patient encounter procedure Donnie Snow MD Work Phone: Rheumatology Comment on above: Systemic scleroderma (HCC) (Primary Dx); Dyspnea on exertion; Protein-calorie malnutrition, unspecified severity (HCC); Coagulation defect, unspecified (HCC); Biceps tendonitis on right Start: 10-11-2023 Refill Donnie Fulton Work Phone: Rheumatology Comment on above: Refill Request Start: 09-27-2023 End: 09-27-2023 Office outpatient visit 15 minutes Sharon Abraham DIRECTOR AND PROFESSOR-DIESEL ENGINE MECHANIC Work Phone: [facility] Comment on above: Inflammatory disorde r of upper extremity (Primary Dx) Start: 09-23-2023 End: 09-23-2023 ambulatory Injection Justin [facility] [employer] Work Phone: Hematology/Oncology Comment on above: Age-related osteopor osis without current pathological fracture (Primary Dx) Start: 09-20-2023 End: 09-20-2023 Office outpatient visit 15 minutes Christopher Rodgers PA-C Work Phone: [facility] Comment on above: Right forearm cellul itis (Primary Dx); Biceps tendonitis on right Start: 09-14-2023 End: 09-14-2023 Office outpatient visit 25 minutes Evelyn Murray DIRECTOR AND PROFESSOR-DIESEL ENGINE MECHANIC Work Phone: [facility] Comment on above: Biceps tendonitis on right Start: 09-13-2023 End: 09-13-2023 Office outpatient visit 15 minutes Sharon Abraham DIRECTOR AND PROFESSOR-DIESEL ENGINE MECHANIC Work Phone: [facility] Comment on above: Right forearm cellul itis Start: 09-08-2023 End: 09-08-2023 Emergency department patient visit EVAN DE [facility] Start: 09-08-2023 End: 09-08-2023 Emergency department patient visit Geraldo Philippe DO Work Phone: [facility] Emergency Medicine Comment on above: Right forearm cellul itis (Primary Dx); Pain in right arm Start: 08-26-2023 End: 08-26-2023 ambulatory Injection Justin [facility] [employer] Work Phone: Hematology/Oncology Comment on above: Age-related osteopor osis without current pathological fracture (Primary Dx) Name of a Orthopedic surgeon Start: 08-22-2023 End: 08-22-2023 Patient encounter procedure Chris Awad MD Work Phone: Pain Management Comment on above: Occipital neuralgia of right side (Primary Dx); Arthropathy of cervical facet joint Start: 08-15-2023 End: 08-16-2023 ambulatory EVARISTO DU [facility] Start: 07-28-2023 End: 07-28-2023 Office outpatient visit 25 minutes Evelyn Murray DIRECTOR AND PROFESSOR-DIESEL ENGINE MECHANIC Work Phone: [facility] Comment on above: Biceps tendonitis on right (Primary Dx) Start: 07-05-2023 End: 07-06-2023 ambulatory EVAN DE [facility] Start: 07-05-2023 End: 07-05-2023 Office outpatient visit 15 minutes Evan De MD Work Phone: [facility] Comment on above: Pain in joint of rig ht shoulder (Primary Dx) Start: 06-06-2023 End: 06-06-2023 Assay of hemosiderin, quant Evaristo Du DIRECTOR AND PROFESSOR-DIESEL ENGINE MECHANIC Work Phone: [facility] Work Phone: Start: 06-06-2023 End: 06-06-2023 Patient encounter procedure Evaristo Du DIRECTOR AND PROFESSOR-DIESEL ENGINE MECHANIC Work Phone: [facility] Comment on above: Routine general medi vera examination at health care facility (Primary Dx); Screening for cardiovascular condition; Encounter for screening mammogram for breast cancer; Multiple sclerosis (CMS/HCC); Chronic bronchitis, unspecified chronic bronchitis type (CMS/HCC); Hypothyroidism, unspecified type; Protein-calorie malnutrition, unspecified severity (CMS/HCC); Mixed hyperlipidemia Start: 06-02-2023 ambulatory Chris arriola MD Work Phone: [facility] Start: 06-02-2023 Follow-up encounter Chris stokes MD Work Phone: Pain Management Comment on above: 3D Scan follow up Start: 05-31-2023 Refill Rey Fuentes MD Work Phone: Rheumatology Comment on above: Refill Request Start: 05-27-2023 End: 05-27-2023 ambulatory Injection Justin c Wstr Work Phone: Hematology/Oncology Comment on above: Age-related osteopor osis without current pathological fracture (Primary Dx) Start: 05-25-2023 End: 05-25-2023 Subsequent hospital visit by physician Spectct4 Work Phone: Molecular Imaging Comment on above: Abnormal findings on diagnostic imaging of other parts of musculoskeletal system [R93.7] Start: 05-25-2023 End: 05-25-2023 Subsequent hospital visit by physician Spectct[employer] Work Phone: Molecular Imaging Start: 05-24-2023 Orders Only Donnie Fulton Work Phone: Rheumatology Start: 05-04-2023 End: 05-04-2023 Patient encounter procedure Chris Awad MD Work Phone: Pain Management Comment on above: Neck pain, chronic ( Primary Dx); Arthropathy of cervical facet joint; Cervicalgia; Abnormal findings on diagnostic imaging of other parts of musculoskeletal system Start: 04-28-2023 End: 04-28-2023 ambulatory Injection Justin [facility] Work Phone: Hematology/Oncology Comment on above: Age-related osteopor osis without current pathological fracture (Primary Dx) Start: 04-25-2023 Orders Only Donnie Fulton Work Phone: Rheumatology Start: 04-23-2023 End: 04-23-2023 Emergency department patient visit [facility] Work Phone: Start: 04-20-2023 End: 04-20-2023 Subsequent hospital visit by physician Xr Chest Main A21 Radiology Comment on above: Systemic sclerosis ( HCC) [M34.9] Start: 02-28-2023 End: 02-28-2023 ambulatory Injection Justin c Wstr Work Phone: Hematology/Oncology Comment on above: Age-related osteopor osis without current pathological fracture (Primary Dx) Start: 02-18-2023 End: 02-18-2023 ambulatory Maricruz Gimenez MD Work Phone: [facility] [place] Comment on above: Neck pain (Primary D x) Start: 02-18-2023 End: 02-18-2023 Telemedicine consultation with patient Maricruz Gimenez MD Work Phone: [facility] [id number] Start: 01-31-2023 End: 01-31-2023 ambulatory Injection Justin [facility] Work Phone: Hematology/Oncology Comment on above: Age-related osteopor osis without current pathological fracture (Primary Dx) Start: 01-27-2023 Telephone encounter Financial Navigator Justin Work Phone: Financial Services Comment on above: Benefits Investigati on Start: 01-19-2023 End: 01-19-2023 Patient encounter procedure Chris Awad MD Work Phone: Pain Management Comment on above: Occipital neuralgia of right side (Primary Dx); Arthropathy of cervical facet joint Start: 01-13-2023 End: 01-13-2023 Patient encounter procedure Donnie Snow MD Work Phone: Rheumatology Comment on above: Age-related osteopor osis without current pathological fracture (Primary Dx); Fracture of vertebra due to osteoporosis, initial encounter ([facility]); Current chronic use of systemic steroids; Systemic sclerosis; CREST; Polymyositis (HCC) Start: 01-10-2023 ambulatory MARICRUZ GIMENEZ [facility] Start: 01-10-2023 End: 01-10-2023 Subsequent hospital visit by physician Mri Radio [facility] (I-Stat/1.5t) Radiology Comment on above: Other fracture of un specified thoracic vertebra, initial encounter for closed fracture (HCC) [S22.008A] Start: 12-10-2022 End: 12-10-2022 Subsequent hospital visit by physician Omar Casper [place] Work Phone: Radiology Comment on above: Osteoporosis without current pathological fracture, unspecified osteoporosis type [M81.0] Start: 12-09-2022 End: 12-09-2022 Subsequent hospital visit by physician Mri Radio [facility] (I-Stat/1.5t) Work Phone: Radiology Comment on above: Osteoporosis without current pathological fracture, unspecified osteoporosis type [M81.0] Start: 11-12-2022 End: 11-12-2022 ambulatory [facility] Ambulatory Start: 11-08-2022 End: 11-08-2022 ambulatory [facility] Start: 11-08-2022 End: 11-08-2022 Patient encounter procedure [facility] Start: 11-08-2022 End: 11-08-2022 Patient encounter procedure Vandana Stevens PA-C Work Phone: [facility] [place] Comment on above: Neck pain (Primary D x); Arthropathy of cervical facet joint; Osteoporosis without current pathological fracture, unspecified osteoporosis type; Polymyositis (HCC) Start: 10-18-2022 Office outpatient vi sit 15 minutes Evaristo Du Work Phone: [facility] 300 Work Phone: Start: 10-18-2022 Patient encounter procedure Evaristo Du Work Phone: [facility] 300 Work Phone: Start: 10-18-2022 ambulatory Evelyn Murray Facility :[id number] Start: 09-21-2022 End: 09-21-2022 Office outpatient visit 25 minutes Evaristo Du DIRECTOR AND PROFESSOR-DIESEL ENGINE MECHANIC Work Phone: [facility] Comment on above: Cervical vertebral f usion (Primary Dx); Degenerative disc disease, cervical; Chronic head pain; Neck pain; Hypothyroidism, unspecified type; Mixed hyperlipidemia Start: 09-19-2022 End: 09-19-2022 Emergency department patient visit Harmeet Richard [facility] Emergency Start: 07-22-2022 Office outpatient vi sit 15 minutes Evaristo Du Work Phone: [facility] 300 Work Phone: Start: 07-22-2022 Patient encounter procedure Evaristo Du Work Phone: [facility] 300 Work Phone: Start: 07-22-2022 ambulatory Evelyn Murray Facility :[id number] Start: 04-26-2022 Office outpatient vi sit 15 minutes Evaristo Du Work Phone: [facility] Work Phone: Start: 04-26-2022 Patient encounter procedure Evaristo Du Work Phone: [facility] Work Phone: Start: 04-26-2022 amb[address] Mrs. Evaristo Du Fa cility:[id number] Start: 04-22-2022 End: 04-22-2022 Emergency department patient visit Ezequiel Armas [facility] Emergency 08 Start: 04-17-2022 End: 04-17-2022 Emergency department patient visit Mr. Ezequiel Armas Facility:[id number] Start: 04-02-2022 Office outpatient vi sit 25 minutes Evaristo Du Work Phone: [facility] 300 Work Phone: Start: 04-02-2022 [address] Mrs[address] Evaristo Du Fa cility:[id number] Start: 03-30-2022 Chart Update Evaristo Du Work Phone: [facility] Work Phone: Start: 03-26-2022 amb[address] Mrs. Evaristo Du Fa cility:[phone] Start: 03-18-2022 Patient encounter procedure Evaristo Du Work Phone: [facility] [place] Work Phone: Start: 03-05-2022 ambulatory Mrs. Evaristo Du Fa cility:[phone] Start: 02-16-2022 amb[address] Mrs. Evaristo Du Fa cility:[phone] Start: 02-02-2022 ambulatory Mrs. Evaristo Du Fa cility:[phone] Start: 02-02-2022 FUV, Provider: Evelyn Murray, Status: Pen, Time: 10:30 AM Evaristo Du [facility] Work Phone: Start: 02-02-2022 Patient encounter procedure Evaristo Du Work Phone: [facility] 300 Work Phone: Start: 02-01-2022 ambulatory Ms. Evelyn Murray Fa cility:[phone] Start: 02-01-2022 Patient encounter procedure Evaristo Du [facility] Work Phone: Start: 01-28-2022 ambulatory Mrs. Evaristo Du Fa cility:[phone] Start: 01-28-2022 Patient encounter procedure Evaristo Houghd Work Phone: [facility] Work Phone: Start: 01-26-2022 [address] Mrs. Evaristo Du Fa cility:[phone] Start: 01-25-2022 Patient encounter procedure Evaristo Houghd Work Phone: [facility] Work Phone: Start: 01-21-2022 Patient encounter procedure Evaristo Du Work Phone: [facility] Work Phone: Start: 01-21-2022 ambulatory Ms. Evelyn Murray Fa cility:[phone] Start: 01-18-2022 Patient encounter procedure Evaristo Du Work Phone: [facility] Work Phone: Start: 01-18-2022 ambulatory Ms. Evelyn Murray Fa cility:[phone] Start: 01-14-2022 PTFUADULT4, Provider : Esther Ewing, Status: Pen, Time: 10:00 AM Evaristo Du Work Phone: [facility] 300 Work Phone: Start: 01-12-2022 FUV, Provider: Evelyn Murray, Status: Pen, Time: 10:30 AM Evaristo Du [facility] [place] Work Phone: Start: 01-12-2022 Office outpatient vi sit 25 minutes Evaristo Du Work Phone: [facility] 300 Work Phone: Start: 01-12-2022 Patient encounter procedure Evaristo Du Work Phone: [facility] 300 Work Phone: Start: 01-12-2022 amb[address] Mrs. Evaristo Du Fa cility:[phone] Start: 01-11-2022 Patient encounter procedure Evaristo Du Work Phone: [facility] [place] Work Phone: Start: 01-11-2022 ambulatory Ms. Evelyn Dykes Trevor Fa cility:[phone] Start: 01-07-2022 Patient encounter procedure Evaristo Du [facility] [place] Work Phone: Start: 01-07-2022 PTFUADULT4, Provider : Esther Ewing, Status: Pen, Time: 10:00 AM Evaristo Du Work Phone: [facility] [place] Work Phone: Start: 01-07-2022 ambulatory Mrs. Evaristo Du Fa cility:[phone] Start: 01-05-2022 Patient encounter procedure Evaristo Du Work Phone: [facility] [place] Work Phone: Start: 01-05-2022 ambulatory Mrs. Evaristo Du Fa cility:[phone] Start: 12-15-2021 ambulatory Mrs. Evaristo Du Fa cility:[phone] Start: 12-15-2021 NPV, Provider: Puja Glynn, Status: Pen, Time: 9:30 AM Evaristo Du Work Phone: [facility] Work Phone: Start: 12-15-2021 Office outpatient ne w 45 minutes Evaristo Du Work Phone: [facility] 300 Work Phone: Start: 12-13-2021 Chart Update Evaristo Du Work Phone: [facility] Work Phone: Start: 12-09-2021 [address] Mrs[address] Evaristo Du Fa cility:[phone] Start: 12-09-2021 Office outpatient vi sit 15 minutes Evaristo Du Work Phone: [facility] Work Phone: Start: 05-25-2021 Patient encounter procedure Sharon Rita Abraham Work Phone: [facility] Work Phone: Start: 05-25-2021 Periodic preventive med est patient 40-64yrs Sharon Rita Abraham Work Phone: [facility] Work Phone: Start: 05-21-2021 AUDIT Sharon Salinas Leigh Work Phone: [facility] Work Phone: Start: 04-30-2021 Office outpatient vi sit 15 minutes Sharon Abraham Work Phone: [facility] 400 DO Work Phone: Start: 04-30-2021 Patient encounter procedure Sharon Abraham Work Phone: [facility] DO Work Phone: Start: 03-12-2021 EPV, Provider: Sharon Abraham, Status: Pen, Time: 11:00 AM Sharon Abraham Work Phone: [facility] 400 DO Work Phone: Start: 03-12-2021 Patient encounter procedure Sharon Abraham Work Phone: [facility] Work Phone: Start: 03-11-2021 Office outpatient vi sit 25 minutes Sharon Abraham Work Phone: [facility] 400 DO Work Phone: Start: 01-22-2021 Office outpatient vi sit 25 minutes Sharon Abraham Work Phone: [facility] 400 DO Work Phone: Start: 01-14-2021 AUDIT Sharon Abraham Work Phone: [facility] 400 DO Work Phone: Start: 01-09-2021 Chart Update Sharon Abraham Work Phone: [facility] 400 DO Work Phone: Start: 01-07-2021 Office outpatient vi sit 25 minutes Sharon Abraham Work Phone: [facility] 400 DO Work Phone: Start: 01-07-2021 Patient encounter procedure Sharon Abraham Work Phone: [facility] 400 DO Work Phone: Start: 12-25-2020 Office consultation new/estab patient 80 min Sharon Salinas Leigh Work Phone: [facility] 400 DO Work Phone: Start: 12-25-2020 Patient encounter procedure Sharon Salinas Leigh Work Phone: [facility] 400 DO Work Phone: Start: 12-10-2020 Office outpatient vi sit 25 minutes Sharon Abraham Work Phone: [facility] Work Phone: Start: 12-10-2020 Patient encounter procedure Sharon Abraham Work Phone: [facility] Work Phone: Start: 11-12-2020 Office outpatient ne w 30 minutes [facility] Dept. of Dermatology Start: 11-12-2020 Office outpatient vi sit 15 minutes [facility] Dept. of Dermatology Start: 09-09-2020 End: 09-09-2020 Orders Only Marixa Araceli Toribio Work Phone: [facility] Start: 08-07-2020 Patient encounter procedure Ryan Monge [facility] Work Phone: Start: 07-18-2020 Patient encounter procedure Ryan Monge [facility] Work Phone: Start: 11-13-2019 End: 11-13-2019 Office outpatient visit 10 minutes Silvestre Ricardo Work Phone: [facility] Comment on above: Closed displaced fra cture of left tibial tuberosity with routine healing, subsequent encounter (Primary Dx) Start: 10-30-2019 Patient encounter procedure Sharon Olsenitz [facility] Work Phone: Start: 10-09-2019 End: 10-09-2019 Office outpatient visit 10 minutes Silvestre Ricardo Work Phone: [facility] Comment on above: Closed displaced fra cture of left tibial tuberosity with routine healing, subsequent encounter (Primary Dx) Start: 10-08-2019 End: 10-08-2019 Documentation procedure Pamela Abernathy [facility] Start: 10-01-2019 Patient encounter procedure Sharon Leigh [facility] Work Phone: Start: 09-11-2019 End: 09-11-2019 Office outpatient visit 10 minutes Silvestre Ricardo Work Phone: [facility] Comment on above: Closed displaced fra cture of left tibial tuberosity with routine healing, subsequent encounter (Primary Dx) Start: 08-23-2019 End: 08-23-2019 Patient encounter procedure JONATHAN BAIRES [facility] Start: 08-22-2017 End: 07-07-2024 Patient encounter status Vandana Stevens PA-C Work Phone: [facility] Work Phone: Start: 04-29-2010 Patient encounter status May aracely Stevens PA-C Work Phone: [facility] Work Phone: Patient encounter procedure Sharon Abraham Work Phone: [facility] Work Phone: Patient encounter status Sharon Abraham Work Phone: [facility] Work Phone: Procedures Date Procedure Procedure Detail Performing Clinician Start: 11-14-2024 Radiologic exam ches t 2 views Vincenzo Lynn APRN.DIESEL ENGINE MECHANIC Work Phone: Start: 09-21-2024 Noninvasive ear/puls e oximetry multiple deter Valeria Pittman PA-C Work Phone: Start: 06-18-2024 Antibody screen EVAN DE Comment on above: Order Comment: Speci men Type: BLOOD SPECIMENOrdering Facility: [facility] Address: [address] [place] [address] Performed By: #### T [id number] ####CC [facility] BLOOD BANKCLIA [id number] [place] [address] [place] Start: 06-18-2024 Mri any jt upper ext remity w/o contrast matrl Heri RAMOS-C Work Phone: Start: 05-16-2024 Spmtry w/vc expirato ry josefa w/wo mxml vol vntj Murphy Bills MD Work Phone: Start: 11-30-2023 Arthrocentesis aspir &/inj major jt/bursa w/us Atul Sutherland Diana DO Work Phone: Start: 11-30-2023 Us compl joint r-t w /image documentation Atul Sutherland iDana DO Work Phone: Start: 11-16-2023 US Abdomen Evelyn Dykes Trevor DIRECTOR AND PROFESSOR-DIESEL ENGINE MECHANIC Work Phone: Start: 09-08-2023 VASC US UPPER EXTREM ITY VENOUS DUPLEX LEFT EVAN KENISHA Start: 09-08-2023 Dup-scan xtr veins unilateral/limited study Geraldo Philippe DO Work Phone: Start: 08-15-2023 BI MAMMO BILATERAL SCREENING TOMOSYNTHESIS EVAN DE Start: 08-15-2023 Mammography Geraldo Perez DO Work Phone: Start: 07-28-2023 LARGE JOINT ARTHROCENTESIS Evelyn Dykes Trevor DIRECTOR AND PROFESSOR-DIESEL ENGINE MECHANIC Work Phone: Start: 07-05-2023 XR SHOULDER RIGHT 2+ VIEWS EVAN DE Start: 06-06-2023 Lipid 1996 panel - S good or Plasma Evaristo Du DIRECTOR AND PROFESSOR-DIESEL ENGINE MECHANIC Work Phone: Start: 06-06-2023 Thyrotropin [Units/v olume] in Serum or Plasma Evaristo Du DIRECTOR AND PROFESSOR-DIESEL ENGINE MECHANIC Work Phone: Start: 05-25-2023 Bone &/joint imaging tomographic spect Jessica Keith MD Work Phone: Start: 04-23-2023 SARS-CoV-2 & FLU Ant igen (Rapid) Start: 04-23-2023 Plain chest X-ray Start: 04-20-2023 Radiologic exam ches t 2 views Sonal Murray PA-C Work Phone: Start: 01-10-2023 Mri spinal canal tho racic w/o contrast matrl Maricruz Gimenez MD Work Phone: Start: 12-10-2022 Radex spine thoracic 3 views Maricruz Gimenez MD Work Phone: Start: 12-09-2022 Mri spinal canal cer vical w/o contrast matrl Vandana RAMOS-C Work Phone: Start: 11-08-2022 Dxa bone density deng dy 1/> sites axial skel Vandana RAMOS-C Work Phone: Start: 04-22-2022 End: 04-22-2022 EKG impression Eezquiel I Moomaw Start: 11-12-2020 Destruction premalig nant lesion 1st Olga Lidia Murtaza Start: 08-12-2020 Lipid panel Ryan Antione M allapareddi Start: 08-12-2020 TSH WITH REFLEX TO F REE T4 IF ABNORMAL Ryan Antione Mallapareddi Start: 08-11-2020 Lipid 1996 panel - S good or Plasma Evaristo Du DIRECTOR AND PROFESSOR-DIESEL ENGINE MECHANIC Work Phone: Start: 01-15-2020 Coronavirus 2019 RNA by PCR, Symptomatic Sharon Abraham Start: 08-23-2019 Lipid 1996 panel - S good or Plasma Donnie Snow MD Work Phone: Start: 08-12-2019 Thyrotropin [Units/v olume] in Serum or Plasma Evaristo Du DIRECTOR AND PROFESSOR-DIESEL ENGINE MECHANIC Work Phone: Start: 04-29-2015 Mammography Vandana tejeda PA-C Work Phone: Amputation and disarticulation of finger Evaristo Du Work Phone: Amputation of hand, thumb or finger Ryan Nag Mallapareddi Appendectomy Ryan Nag Mallap areddi Arthroplasty of knee Sharon Abraham Work Phone: Comment on above: 02/04/21 Right knee; Hysterectomy vaginal Evaristo Du Work Phone: Incision of trachea Ryan Nag Mallapareddi Laboratory test resu lt abnormal Abnormal laboratory test Sharon Abraham Work Phone: Ligation of fallopian tube A run Nag Mallapareddi Prosthetic arthropla sty of the hip Ryan Nag Mallapareddi Repair of cystocele Ryan Nag Mallapareddi Total replacement of hip Rachid Du Work Phone: Vaginal hysterectomy Ryan Na g Mallapareddi Plan of Treatment Date Care Activity Detail Author Start: 06-06-2028 Lipid panel [facility] Start: 07-07-2027 Diabetes Screening Diabetes Screenne g [facility] Start: 06-18-2027 Diabetes Screening Diabetes Screenin g [facility] Start: 04-18-2027 Diabetes Screening Diabetes Screenne g [facility] Start: 02-02-2027 Diabetes Screening Diabetes Screenne g [facility] Start: 10-20-2026 Diabetes Screening Diabetes Screenne g [facility] Start: 10-16-2026 Diabetes Screening Diabetes Screenne g [facility] Start: 07-29-2026 Diabetes Screening Diabetes Screenne g [facility] Start: 04-20-2026 Diabetes Screening Diabetes Screenne g [facility] Start: 01-13-2026 DIABETES SCREEN DIABETES SCREEN [facility] Start: 09-19-2025 DIABETES SCREEN DIABETES SCREEN [facility] Start: 08-11-2025 Lipid panel Lipid Panel [facility] Start: 03-20-2025 End: 03-20-2025 Patient encounter procedure 03/20/2025 9:00 AM EDT Office Visit Pulmonary Medicine [address] [place] [address] Vincenzo Lynn APRN.[facility] [address] [place] [address] 4 month f/u Pulmonary Medicine Comment on above: 4 month f/u Start: 03-04-2025 Influenza vaccination Influenz a Vaccine (Season Ended) [facility] Start: 12-27-2024 End: 12-27-2024 Patient encounter procedure Radiology Comment on above: Right shoulder , XR first DOS 07/02/24 Right shoulder , XR firrst DOS 07/02/24 Start: 12-26-2024 End: 12-26-2024 Patient encounter procedure Radiology Comment on above: Right shoulder , XR first DOS 07/02/24 Right shoulder , XR firrst DOS 07/02/24 Start: 11-14-2024 End: 11-14-2024 Patient encounter procedure Pulmonary Medicine Comment on above: 6 MTH F/U Start: 11-09-2024 End: 11-09-2024 Patient encounter procedure 11/09/2024 8:20 AM EDT Appointment Radiology [address] [place] [phone] Age-related osteoporosis without current pathological fracture [M81.0] Radiology Comment on above: Age-related osteopor osis without current pathological fracture [M81.0] Start: 11-08-2024 Screening for osteoporosis Bone Density Scan [facility] Start: 09-25-2024 End: 09-25-2024 Patient encounter procedure 09/25/2024 10:20 AM EDT Office Visit Orthopedics [address] [facility] [address] [place] [address] Heri Pappas, PA-C [address] [place] [address] Right shoulder f/u DOS 07/02/24 Orthopedics Comment on above: Right shoulder f/u D OS 07/02/24 Start: 09-21-2024 End: 09-21-2024 ambulatory 09/21/2024 11:00 AM EDT Procedure [facility] [address] [place] [address] Wstr, Pulm Lab [facility] [address] [place] [address] Oximetry to DC O2 [facility] WS Comment on above: Oximetry to DC O2 Start: 08-29-2024 End: 11-28-2024 Bacteria identified in Unspecified specimen by Respiratory culture BACTERIAL CULTURE AND GRAM STAIN, RESPIRATORY, SPUTUM AND TRACHEAL ASPIRATE Microbiology Routine Acute cough Expected: 08/29/2024, Expires: 11/28/2024 [facility] Comment on above: Expected: 08/29/2024 , Expires: 11/28/2024 Start: 08-29-2024 End: 09-28-2025 XR Chest PA and Lateral [facility] Work Phone: Comment on above: Expected: 08/29/2024 , Expires: 09/28/2025 Start: 08-27-2024 End: 08-27-2024 ambulatory 08/27/2024 8:00 AM EST OT/PT/Speech Visit [facility] [address] [place] [address] Comfort Pal, PT Right shoulder [facility] Comment on above: Right shoulder Start: 08-23-2024 Lipid 1996 panel - S good or Plasma Lipid Screening [facility] Start: 08-15-2024 Screening for malign ant neoplasm of breast [facility] Start: 08-13-2024 End: 08-13-2024 Patient encounter procedure 08/13/2024 1:00 PM EST Office Visit [facility] [address] [facility] [address] [place] [phone] Evan De MD [address] [facility] [address] [place] [address] [facility] Start: 08-13-2024 End: 08-13-2024 Nursing evaluation of patient and report 08/13/2024 9:30 AM EST Nurse Visit Orthopedics [address] [facility] [address] [place], [place] [phone] Kala Pino, RN [address] [facility] [place] [place] [phone] POST OP Orthopedics Comment on above: POST OP Start: 07-26-2024 End: 07-26-2024 Patient encounter procedure 07/26/2024 2:30 PM EST Office Visit Rheumatology [address] [address] Donnie Snow MD [address] [address] 6m osteoporosis per brannon Rheumatology Comment on above: 6m osteoporosis per brannon Start: 07-17-2024 End: 07-17-2024 Nursing evaluation of patient and report 07/17/2024 10:00 AM EST Nurse Visit Orthopedics [address] [place] [address] Kala Pino, RN [address] [place] [address] POST OP Orthopedics Comment on above: POST OP Start: 07-17-2024 End: 07-17-2024 Patient encounter procedure 07/17/2024 9:30 AM EST Appointment [facility] [address] [place] [address] POST OP [facility] Comment on above: POST OP Start: 07-09-2024 End: 07-09-2024 Patient encounter procedure 07/09/2024 2:15 PM EST Office Visit Dermatology [address] [address] Osbaldo Kingsley MD [address] [place] [address] lesion different color than skin color Dermatology Comment on above: lesion different col or than skin color Start: 07-02-2024 End: 10-01-2024 Basic metabolic 2000 panel - Serum or Plasma BASIC METABOLIC PANEL Lab Routine Glenohumeral arthritis, right Pre-op exam Expected: 07/02/2024, Expires: 10/01/2024 [facility] Work Phone: Comment on above: Expected: 07/02/2024 , Expires: 10/01/2024 Start: 07-02-2024 End: 08-28-2024 CBC W Auto Differential panel - Blood COMPLETE BLOOD COUNT AND DIFFERENTIAL Lab Routine Glenohumeral arthritis, right Pre-op exam Expected: 07/02/2024, Expires: 08/28/2024 [facility] Comment on above: Expected: 07/02/2024 , Expires: 08/28/2024 Start: 07-02-2024 End: 10-01-2024 TYPE AND SCREEN,30 DAY TYPE AND SCREEN,30 DAY Blood Bank Routine Glenohumeral arthritis, right Pre-op exam Expected: 07/02/2024, Expires: 10/01/2024 [facility] Comment on above: Expected: 07/02/2024 , Expires: 10/01/2024 Start: 07-02-2024 End: 07-02-2024 Admission to same day surgery center 07/02/2024 7:45 AM EST - 07/02/2024 11:17 AM EST Surgery Admitting [address] [place] [address] Maykel Crow MD [address] [place] [address] RIGHT TOTAL SHOULDER ARTHROPLASTY, STANDARD VERSUS REVERSE VERSUS HEMIARTHROPLASTY Admitting Comment on above: RIGHT TOTAL SHOULDER ARTHROPLASTY, STANDARD VERSUS REVERSE VERSUS HEMIARTHROPLASTY Start: 07-02-2024 End: 07-02-2024 Arthroplasty glenohumeral joint total shoulder ARTHROPLASTY REPLACE JOINT TOTAL SHOULDER Glenohumeral arthritis, right Pre-op exam 07/02/2024 7:45 AM EST [facility] Start: 07-02-2024 Subsequent hospital visit by physician Admitting Comment on above: Glenohumeral arthrit is, right [M19.011], Pre-op exam [Z01.818] Start: 06-19-2024 End: 06-19-2024 Patient encounter procedure 06/19/2024 11:00 AM EST Office Visit [facility] [address] [facility] [address] [place] [phone] Que Frank, DIRECTOR AND PROFESSOR-DIESEL ENGINE MECHANIC [address] [facility] [address] [place] [address] [facility] Start: 06-18-2024 End: 06-18-2024 Anesthesia consultation 06/18/2024 9:20 AM EST PAT Pre Anesthesia [address] [place], [place] [phone] 1, Pacc Manoj [address] [place] [address] PRE OP Pre Anesthesia Comment on above: PRE OP Start: 06-18-2024 End: 06-18-2024 Patient encounter procedure 06/18/2024 8:00 AM EST Appointment Radiology [address] [place] [address] PRE OP Radiology Comment on above: PRE OP Start: 06-13-2024 End: 06-13-2024 Patient encounter procedure 06/13/2024 8:45 AM EST Office [place] [address] REGISTRATION [employer] [facility] Comment on above: REGISTRATION Start: 06-07-2024 Medicare Annual Well ness Visit Medicare Annual Wellness Visit (AWV) [facility] Start: 06-07-2024 End: 06-07-2024 Patient encounter procedure 06/07/2024 9:00 AM EST Office Visit [facility] [address] [place] [phone] Evan De MD [address] [facility] [address] [place] [address] [facility] Start: 06-06-2024 Thyroid stimulating hormone measurement TSH Level [facility] Start: 05-16-2024 End: 05-16-2024 Patient encounter procedure 05/16/2024 1:30 PM EST Office Visit Pulmonary Medicine [address] [place] [address] Valeria Pittman, PA-C [address] [place] [address] 6 month f/u-review PFT Pulmonary Medicine Comment on above: 6 month f/u-review P FT Start: 05-16-2024 End: 05-16-2024 ambulatory 05/16/2024 1:15 PM EST Procedure [facility] [address] [place] [address] Wstr, Pulm Lab [address] [place] [address] ILD (interstitial lung disease) (HCC) [J84.9] [facility] Comment on above: ILD (interstitial karine ng disease) (HCC) [J84.9] Start: 04-18-2024 End: 04-18-2024 Patient encounter procedure 04/18/2024 9:00 AM EDT Office Visit Rheumatology [address] [address] Donnie Snow MD [address] [address] 6m osteoporosis per brannon Rheumatology Comment on above: 6m osteoporosis per brannon Start: 03-15-2024 End: 03-15-2024 Patient encounter procedure 03/15/2024 8:45 AM EDT Office Visit Orthopaedics [address] [address] Maykel Crow MD [address] [place], [place] [phone] right shoulder replacement consult Orthopaedics Comment on above: right shoulder repla cement consult Start: 03-04-2024 Covid-19 Vaccine ( season) Covid-19 Vaccine () [facility] Start: 03-04-2024 Influenza vaccination Influenza Vacc ine (#1) [facility] Start: 02-10-2024 End: 02-09-2025 Cologuard colon cancer screening Cologuard colon cancer screening Lab Routine Colon cancer screening Expected: 02/10/2024 (Approximate), Expires: 02/09/2025 [facility] Work Phone: Comment on above: Expected: 02/10/2024 (Approximate), Expires: 02/09/2025 Start: 02-10-2024 End: 02-09-2025 Ferritin [Mass/volume] in Serum or Plasma Ferritin Lab Routine Restless leg syndrome Protein-calorie malnutrition, unspecified severity (Multi) Expected: 02/10/2024 (Approximate), Expires: 02/09/2025 [facility] Service Area Work Phone: Comment on above: Expected: 02/10/2024 (Approximate), Expires: 02/09/2025 Start: 01-25-2024 End: 01-25-2024 Patient encounter procedure 01/25/2024 4:00 PM EDT Office Visit Rheumatology [address] [address] Chasity Suggs PA [address] [place] [address] scleroderma per Snow Rheumatology Comment on above: scleroderma per [place] [facility] Start: 01-20-2024 End: 01-20-2024 ambulatory 01/20/2024 8:00 AM EDT Results Only Manoj [facility] [address] [place] [address] [facility] Start: 01-16-2024 End: 01-16-2024 Infusion Center 01/16/2024 9:30 AM EDT Infusion Center Hematology/Oncology [address] [place] [address] START RECLAST/C1-1/DONNIE SNOW ORDERING/AUTH EXP ?* Hematology/Oncology Comment on above: START RECLAST/C1-1/S ROSIE SNOW ORDERING/AUTH EXP ?* Start: 2024 RSV High Risk: (Elde rly (60+) or Population) (1 - Risk 60-74 years 1-dose series) RSV High Risk: (Elderly (60+) or Population) (1 - Risk 60-74 years 1-dose series) [facility] Start: 2024 RSV patient s and/or patients aged 60+ years (1 - 1-dose 60+ series) RSV patients and/or patients aged 60+ years (1 - 1-dose 60+ series) [facility] Start: 2024 RSV Vaccine (1 - 1-d ose 60+ series) RSV Vaccine (1 - 1-dose 60+ series) [facility] Start: 2024 RSV Vaccine (1 - Ris k 60-74 years 1-dose series) RSV Vaccine (1 - Risk 60-74 years 1-dose series) [facility] Start: 12-16-2023 End: 12-16-2023 Infusion Center Hematology/Oncology Comment on above: QMO EVENITY/DONNIE KE LLER ORDERING/AUTH EXP 07/20/24 * LAST INJECTION PER TE - QMO EVENITY/DONNIE BRANNON ORDERING/AUTH EXP 07/20/24 * Start: 11-30-2023 End: 11-30-2023 Patient encounter procedure 11/30/2023 1:40 PM EDT Office Visit [facility] [address] [place] [address] [place] [address] [place] [address] Biceps tendonitis on right [M75.21] Orthopaedics [place] Comment on above: Biceps tendonitis on right [M75.21] Start: 11-29-2023 End: 11-29-2023 Patient encounter procedure Radiology Comment on above: XR SHOULDER GENERAL 3V OR MORE AP/TRUE AP/OTHER RIGHT Dyspnea on exertion [R06.09]; 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] Start: 11-18-2023 End: 11-18-2023 Infusion Center 11/18/2023 11:15 AM EDT Infusion Center Hematology/Oncology [address] [place] [address] Wstr, Injection Justin [facility] [address] [place] [address] QMO EVENITY/DONNIEMARTHA SNOW ORDERING/AUTH EXP 07/20/24 * Hematology/Oncology Comment on above: QMO EVENITY/DONNIE PATSY SANDOVAL ORDERING/AUTH EXP 07/20/24 * Start: 11-10-2023 End: 11-10-2023 Patient encounter procedure 11/10/2023 11:45 AM EDT Office Visit Pulmonary Medicine [address] [place] [address] Murphy Bills MD [address] [place] [address] 4 month follow up Pulmonary Medicine Comment on above: 4 month follow up Start: 11-09-2023 Screening for osteoporosis Bone Density Scan [facility] Start: 10-25-2023 End: 10-25-2023 Patient encounter procedure 10/25/2023 11:00 AM EDT Office Visit [facility] [address] [place] [address] Evelyn Murray, DIRECTOR AND PROFESSOR-DIESEL ENGINE MECHANIC [address] [facility] [address] [place] [address] [facility] Start: 10-06-2023 End: 10-06-2023 Patient encounter procedure [facility] Start: 09-27-2023 End: 09-27-2023 Patient encounter procedure 09/27/2023 10:00 AM EDT Office Visit [facility] [address] [place] [address] Sharon Abraham, DIRECTOR AND PROFESSOR-DIESEL ENGINE MECHANIC [address] [facility] [address] [place] [address] [facility] Start: 09-14-2023 End: 09-14-2023 Patient encounter procedure 09/14/2023 10:15 AM EDT Office Visit [facility] [address] [place] [address] Evelyn Murray, DIRECTOR AND PROFESSOR-DIESEL ENGINE MECHANIC [address] [facility] [address] [place] [address] [facility] Start: 09-09-2023 End: 09-09-2023 Patient encounter procedure 09/09/2023 9:20 AM EST Office Visit [facility] [address] [place] [phone] Ryan Monge MD MPH [address] [facility] [address] [place] [address] [facility] Start: 09-08-2023 End: 09-08-2023 Patient encounter procedure 09/08/2023 11:00 AM EST Office Visit [facility] [address] [phone] Evelyn Murray, DIRECTOR AND PROFESSOR-DIESEL ENGINE MECHANIC [address] [facility] [address] [place] [address] [facility] Start: 08-15-2023 End: 08-15-2023 Patient encounter procedure 08/15/2023 11:00 AM EST Appointment [address] [phone] [facility] Start: 07-08-2023 End: 07-08-2023 Patient encounter procedure 07/08/2023 10:45 AM EST Appointment [address] [phone] [facility] Start: 07-05-2023 End: 07-05-2024 XR Shoulder - right 2 Views XR shoulder right 2+ views Imaging Routine Pain in joint of right shoulder Expected: 07/05/2023, Expires: 07/05/2024 [facility] Service Area Work Phone: Comment on above: Expected: 07/05/2023 , Expires: 07/05/2024 Start: 06-20-2023 End: 06-20-2023 Patient encounter procedure 06/20/2023 10:30 AM EST Appointment [address] [phone] [facility] Start: 06-06-2023 End: 08-07-2024 DBT Breast - bilateral BI mammo bilateral screening tomosynthesis Imaging Routine Encounter for screening mammogram for breast cancer Expected: 06/06/2023, Expires: 08/07/2024 [facility] Service Area Work Phone: Comment on above: Expected: 06/06/2023 , Expires: 08/07/2024 Start: 03-04-2023 Covid-19 Vaccine () Covid-19 Vaccine () [facility] Start: 03-04-[address] [facility] Start: 02-17-2023 FUV, Provider: Evaristo Du, Status: Pen, Time: 10:15 AM FUV, Provider: Evaristo Du, Status: Pen, Time: 10:15 AM [facility] Start: 02-17-2023 Patient encounter procedure Outpatient [facility] Medicine [place] Start: 17-Feb-2023 10:15 Evaristo Du [facility] Start: 02-17-2023 End: 02-17-2023 Patient encounter procedure 02/17/2023 10:15 AM EDT Office Visit [facility] [address] [place] [phone] Evaristo Du, DIRECTOR AND PROFESSOR-DIESEL ENGINE MECHANIC [address] [facility] [address] [place] [address] [facility] Start: 10-14-2022 FUV, Provider: Evelyn Murray, Status: Abhinav, Time: 1:00 PM FUV, Provider: Evelyn Murray, Status: Pen, Time: 1:00 PM [facility] 300 Work Phone: Start: 10-14-2022 Patient encounter procedure [facility] Start: 09-21-2022 End: 09-22-2023 TSH with reflex to Free T4 if abnormal TSH with reflex to Free T4 if abnormal Lab Routine Hypothyroidism, unspecified type Expected: 09/21/2022 (Approximate), Expires: 09/22/2023 [facility] Service Area Work Phone: Comment on above: Expected: 09/21/2022 (Approximate), Expires: 09/22/2023 Start: 07-06-2022 FUV, Provider: Evelyn Murray, Status: Abhinav, Time: 10:00 AM FUV, Provider: Evelyn Murray, Status: Pen, Time: 10:00 AM [facility] 300 Work Phone: Start: 07-06-2022 Patient encounter procedure [facility] [place] Start: 04-02-2022 FUV, Provider: Evelyn Murray, Status: Pen, Time: 10:00 AM FUV, Provider: Evelyn Murray, Status: Pen, Time: 10:00 AM [facility] Work Phone: Start: 03-05-2022 FUV, Provider: Evelyn Murray, Status: Pen, Time: 10:00 AM FUV, Provider: Evelyn Murray, Status: Pen, Time: 10:00 AM [facility] 300 Work Phone: Start: 03-04-2022 Influenza vaccination Influenza Vacc ine (#1) [facility] Start: 02-16-2022 EPV, Provider: Evaristo Du, Status: Pen, Time: 10:15 AM EPV, Provider: Evaristo Du, Status: Pen, Time: 10:15 AM [facility] Work Phone: Start: 02-08-2022 PTRECHADUL, Provider : Delta Enrique, Status: Pen, Time: 11:00 AM PTRECHADUL, Provider: Delta Enrique, Status: Pen, Time: 11:00 AM [facility] Work Phone: Start: 02-04-2022 PTFUADULT4, Provider : Esther Ewing, Status: Pen, Time: 10:45 AM PTFUADULT4, Provider: Esther Ewing, Status: Pen, Time: 10:45 AM [facility] Work Phone: Start: 02-02-2022 FUV, Provider: Evelyn Murray, Status: Pen, Time: 10:30 AM FUV, Provider: Evelyn Murray, Status: Pen, Time: 10:30 AM [facility] 300 Work Phone: Start: 02-01-2022 PTRECHADCONI, Provider : Delta Enrique, Status: Pen, Time: 10:30 AM PTRECHADUL, Provider: Delta Enrique, Status: Pen, Time: 10:30 AM [facility] Work Phone: Start: 01-28-2022 PTFUADULT4, Provider : Evelyn Harris, Status: Pen, Time: 10:45 AM PTFUADULT4, Provider: Evelyn Harris, Status: Pen, Time: 10:45 AM [facility] Work Phone: Start: 01-25-2022 PTFUADULT4, Provider : Alexus Dao, Status: Pen, Time: 10:00 AM PTFUADULT4, Provider: Alexus Dao, Status: Pen, Time: 10:00 AM [facility] Work Phone: Start: 01-21-2022 PTFUADULT4, Provider : Esther Ewing, Status: Pen, Time: 10:00 AM PTFUADULT4, Provider: Esther Ewing, Status: Pen, Time: 10:00 AM [facility] Work Phone: Start: 01-18-2022 PTFUADULT4, Provider : Delta Enrique, Status: Pen, Time: 10:45 AM PTFUADULT4, Provider: Delta Enrique, Status: Pen, Time: 10:45 AM [facility] Work Phone: Start: 01-14-2022 PTFUADULT4, Provider : Esther Ewing, Status: Pen, Time: 10:00 AM PTFUADULT4, Provider: Esther Ewing, Status: Pen, Time: 10:00 AM [facility] Work Phone: Start: 01-12-2022 FUV, Provider: Evelyn Murray, Status: Pen, Time: 10:30 AM FUV, Provider: Evelyn Murray, Status: Pen, Time: 10:30 AM [facility] 300 Work Phone: Start: 01-11-2022 PTFUADULT4, Provider : Evelyn Harris, Status: Pen, Time: 10:00 AM PTFUADULT4, Provider: Evelyn Harris, Status: Pen, Time: 10:00 AM [facility] Work [facility]: Start: 01-05-2022 PTEVALADUL, Provider : Delta Enrique, Status: Pen, Time: 8:15 AM PTEVALADUL, Provider: Delta Enrique, Status: Pen, Time: 8:15 AM [facility] 300 Work Phone: Start: 12-15-2021 NPV, Provider: Puja Glynn, Status: Pen, Time: 9:30 AM NPV, Provider: Puja Glynn, Status: Pen, Time: 9:30 AM [facility] Work Phone: Start: 11-27-2021 EPV, Provider: Alvina Mccrary, Status: Pen, Time: 1:00 PM EPV, Provider: Alvina Mccrary, Status: Pen, Time: 1:00 PM [facility] Work Phone: Start: 11-27-2021 EPV, Provider: Evaristo Du, Status: Pen, Time: 1:00 PM EPV, Provider: Evaristo Du, Status: Pen, Time: 1:00 PM [facility] Work Phone: Start: 05-25-2021 FUV, Provider: Alvina Mccrary, Status: Pen, Time: 10:00 AM FUV, Provider: Alvina Mccrary, Status: Pen, Time: 10:00 AM [facility] 400 DO Work Phone: Start: 04-23-2021 FUV, Provider: Sharon Abraham, Status: Pen, Time: 2:00 PM FUV, Provider: Sharon Abraham, Status: Pen, Time: 2:00 PM [facility] Work Phone: Start: 04-10-2021 FUV, Provider: Meek Rose, Status: Pen, Time: 10:00 AM FUV, Provider: Meek Rose, Status: Pen, Time: 10:00 AM [facility] 400 DO Work Phone: Start: 03-19-2021 FUV, Provider: Meek Rose, Status: Pen, Time: 1:00 PM FUV, Provider: Meek Rose, Status: Pen, Time: 1:00 PM [facility] 400 DO Work Phone: Start: 03-12-2021 EPV, Provider: Sharon Abraham, Status: Pen, Time: 11:00 AM EPV, Provider: Sharon Abraham, Status: Pen, Time: 11:00 AM [facility] Work Phone: Start: 01-22-2021 FUV, Provider: Meek Rose, Status: Pen, Time: 1:30 PM FUV, Provider: Meek Rose, Status: Pen, Time: 1:30 PM -Pulmonary [facility] 400 DO Work Phone: Start: 01-07-2021 FUV, Provider: Meek Rose, Status: Pen, Time: 3:30 PM FUV, Provider: Meek Rose, Status: Pen, Time: 3:30 PM -Pulmonary [facility] 400 DO Work Phone: Start: 08-12-2020 Thyroid stimulating hormone measurement TSH Level [facility] Start: 03-04-2020 Influenza vaccinatio n given [facility] Start: 11-13-2019 End: 11-13-2019 Office Visit 11/13/2019 Office Visit Sports Medicine Silvestre Ricardo MD [address] [place] [id number] [phone] [facility] Start: 10-22-2019 Pneumococcal Vaccine : Pediatrics (0 to 5 Years) and At-Risk Patients (6 to 64 Years) (2 - PPSV23 or PCV20) Pneumococcal Vaccine: Pediatrics (0 to 5 Years) and At-Risk Patients (6 to 64 Years) (2 - PPSV23 or PCV20) [facility] Start: 10-22-2019 Pneumococcal Vaccine : Pediatrics (0 to 5 Years) and At-Risk Patients (6 to 64 Years) (2 of 2 - PPSV23 or PCV20) Pneumococcal Vaccine: Pediatrics (0 to 5 Years) and At-Risk Patients (6 to 64 Years) (2 of 2 - PPSV23 or PCV20) [facility] Start: 10-09-2019 End: 10-09-2019 Office Visit [facility] Start: 03-04-2019 Influenza vaccinatio n given Sequential Influenza Vaccine (#1) [facility] Start: 04-29-2016 Mammography [facility] Start: 12-18-2014 HPV TESTING HPV TESTING [facility] Start: 12-18-2014 PAP TESTING PAP TESTING [facility] Start: 12-18-2014 Screening for malign ant neoplasm of cervix [facility] Start: 12-31-2013 Administration of he rpes zoster vaccine Zoster Vaccines (1 of 2) [facility] Start: 12-31-2013 Screening for malign ant neoplasm of colon [facility] Start: 12-31-2013 SHINGRIX VACCINE (1 of 2) SHINGRIX VACCINE (1 of 2) [facility] Start: 12-31-2013 Zoster Vaccines (1 of 2) Zoste r Vaccines (1 of 2) [facility] Start: 12-31-2008 COLOGUARD (FIT-DNA) COLOGUARD (FIT-D NA) [facility] Start: 12-31-2008 Colonoscopy COLONOSCOPY [facility] Start: 12-31-2008 COLORECTAL CANCER SCREENING COLORECTAL CANCER SCREENING [facility] Start: 12-31-[address] COLONOGRAPHY [facility] Start: 12-31-2008 FECAL OCCULT BLOOD FECAL OCCULT BLOO D [facility] Start: 12-31-2008 Lipid 1996 panel - S good or Plasma Lipid Screening [facility] Start: 12-31-2008 LIPID SCREEN LIPID SCREEN [facility] Start: 12-31-2008 Screening for malign ant neoplasm of colon [facility] Start: 12-31-2008 SIGMOIDOSCOPY SIGMOIDOSCOPY [facility] Start: 2004 Screening for malign ant neoplasm of breast Mammogram [facility] Start: 12-31-1985 DTaP/Tdap/Td Vaccine s (1 - Tdap) DTaP/Tdap/Td Vaccines (1 - Tdap) [facility] Start: 12-31-1984 Screening for malign ant neoplasm of cervix [facility] Start: 12-31-1982 Hepatitis A Vaccines (1 of 2 - Risk 2-dose series) Hepatitis A Vaccines (1 of 2 - Risk 2-dose series) [facility] Start: 12-31-1982 Hepatitis B Vaccines (1 of 3 - 19+ 3-dose series) Hepatitis B Vaccines (1 of 3 - 19+ 3-dose series) [facility] Start: 12-31-1982 Urine microalbumin profile [facility] Start: 12-31-1981 ANNUAL PCP TEAM [employer] ADELE DISEASE VISIT ANNUAL PCP TEAM CHRONIC DISEASE VISIT [facility] Start: 12-31-1981 Anxiety Screening Anxiety Screening [facility] Start: 12-31-1981 COVID-19 Vaccine (#1) COVID-19 Vacci ne (#1) [facility] Start: 12-31-1981 Hepatitis C antibody , confirmatory test Hepatitis C Screening [facility] Start: 12-31-1981 Hepatitis C [facility]: 12-31-1981 HIV SCREENING HIV SCREENING [facility] Start: 12-31-1981 HIV screening HIV Screening [facility] Start: 1980 COVID-19 Vaccine (1 of 2) COVID-19 Vaccine (1 of 2) [facility] Start: 12-31-1978 HIV screening [facility] Start: 1976 Adolescent depressio n screening assessment Depression Screening (PHQ9) [facility] Start: 12-31-1969 PNEUMOCOCCAL (1 - PCV) PNEUMOCOCCAL (1 - PCV) [facility] Start: 12-31-1969 Pneumococcal vaccination Pneum ococcal Vaccine (1 - PCV) [facility] Start: 12-31-1969 Pneumococcal Vaccine : Pediatrics (0 to 5 Years) and At-Risk Patients (6 to 64 Years) (1 - PCV) Pneumococcal Vaccine: Pediatrics (0 to 5 Years) and At-Risk Patients (6 to 64 Years) (1 - PCV) [facility] Start: 12-31-1966 History and physical examination, annual for health maintenance Wellness Visit [facility] Start: 1964 MMR Vaccines (1 of 1 - Standard series) MMR Vaccines (1 of 1 - Standard series) [facility] Start: 1964 COVID-19 VACCINE (#1) COVID-19 VACCI NE (#1) [facility] Start: 1964 Depression screening using PHQ-9 (Patient Health Questionnaire 9) score Depression Screening (PHQ9) [facility] Start: 1964 HEPATITIS B (1 of 3 - 3-dose series) HEPATITIS B (1 of 3 - 3-dose series) [facility] Start: 1964 Hepatitis B Vaccines (1 of 3 - 3-dose series) Hepatitis B Vaccines (1 of 3 - 3-dose series) [facility] Start: 1964 Hepatitis C antibody , confirmatory test Hepatitis C Screening [facility] Start: 1964 HIV screening HIV Screening [facility] Start: 1964 Medicare Annual Well ness Visit Medicare Annual Wellness Visit (AWV) [facility] Start: 1964 Screening for malign ant neoplasm of cervix Pap Smear [facility] Start: 1964 Screening for malign ant neoplasm of colon [facility] Start: 1964 Screening for osteoporosis Bone Density Scan [facility] Start: 1964 Screening mammography [facility] Start: 1964 Tetanus vaccination Tetanus: Every 1 0yrs [facility] Arthroplasty glenohumeral joint total shoulder ARTHROPLASTY REPLACE JOINT TOTAL SHOULDER Glenohumeral arthritis, right Pre-op exam [facility] End: 05-18-2025 BD DXA TRABECULAR BONE SCORE (TBS) BD DXA TRABECULAR BONE SCORE (TBS) Radiology Routine Age-related osteoporosis without current pathological fracture 1 Occurrences starting 04/18/2024 until 05/18/2025 [facility] Comment on above: 1 Occurrences starti ng 04/18/2024 until 05/18/2025 BD DXA TRABECULAR HARRISON NE SCORE (TBS) BD DXA TRABECULAR BONE SCORE (TBS) Radiology Routine Age-related osteoporosis without current pathological fracture 11/09/2024 8:39 AM EDT [facility] End: 06-02-2024 Bone &/joint imaging 3 phase study NM BONE 3 PHASE Radiology Routine Abnormal findings on diagnostic imaging of other parts of musculoskeletal system 1 Occurrences starting 05/04/2023 until 06/02/2024 [facility] Work Phone: Comment on above: 1 Occurrences starti ng 05/04/2023 until 06/02/2024 End: 06-02-2024 Bone &/joint imaging tomographic spect NM BONE SPECT Radiology Routine Cervicalgia 1 Occurrences starting 05/04/2023 until 06/02/2024 [facility] Work Phone: Comment on above: 1 Occurrences starti ng 05/04/2023 until 06/02/2024 End: 11-15-2024 CT Chest WO contrast CT CHEST WO IVCON Radiology Routine Dyspnea on exertion Systemic scleroderma (HCC) 1 Occurrences starting 10/17/2023 until 11/15/2024 [facility] Work Phone: Comment on above: 1 Occurrences starti ng 10/17/2023 until 11/15/2024 CT Chest WO contrast CT CHEST WO IVCON Radiology Routine Dyspnea on exertion Systemic scleroderma (HCC) 11/29/2023 11:39 AM EDT [facility] Work Phone: End: 05-18-2025 DXA Skeletal system.axial Views for bone density DXA-AXIAL SKELETON Radiology Routine Age-related osteoporosis without current pathological fracture 1 Occurrences starting 04/18/2024 until 05/18/2025 [facility] Work Phone: Comment on above: 1 Occurrences starti ng 04/18/2024 until 05/18/2025 DXA Skeletal system.axial Views for bone density DXA-AXIAL SKELETON Radiology Routine Age-related osteoporosis without current pathological fracture 11/09/2024 8:39 AM EDT [facility] Work Phone: End: 06-18-2025 ECG COMPLETE ECG COMPLETE ECG Routine Pre-operative examination 1 Occurrences starting 06/18/2024 until 06/18/2025 [facility] Work Phone: Comment on above: 1 Occurrences starti ng 06/18/2024 until 06/18/2025 Lipid panel Lipid Panel [facility] Work Phone: Comment on above: Approx [id number] End: 05-27-2025 MR Shoulder - right WO contrast MRI SHOULDER WO IVCON RIGHT Radiology Routine Glenohumeral arthritis, right Pre-op exam 1 Occurrences starting 05/28/2024 until 05/27/2025 [facility] Comment on above: 1 Occurrences starti ng 05/28/2024 until 05/27/2025 End: 12-08-2023 Mri spinal canal cervical w/o contrast matrl MRI CERVICAL SPINE WO IVCON Radiology Routine Osteoporosis without current pathological fracture, unspecified osteoporosis type Arthropathy of cervical facet joint Neck pain Polymyositis (HCC) 1 Occurrences starting 11/08/2022 until 12/08/2023 [facility] Work Phone: Comment on above: 1 Occurrences starti ng 11/08/2022 until 12/08/2023 OXIMETRY - NOCTURNAL OXIMETRY - NOCTURNAL Procedures Routine Influenza due to influenza A subtype H1N1 virus with pneumonia Chronic hypoxemic respiratory failure (HCC) Ordered: 09/17/2024 [facility] Comment on above: Ordered: 09/17/2024 OXIMETRY - NOCTURNAL OXIMETRY - NOCTURNAL Procedures Routine Influenza due to influenza A subtype H1N1 virus with pneumonia Chronic hypoxemic respiratory failure (HCC) ILD (interstitial lung disease) (HCC) Ordered: 10/17/2024 [facility] Work Phone: Comment on above: Ordered: 10/17/2024 End: 10-17-2025 OXIMETRY WITH AMBULATION OXIMETRY WITH AMBULATION PFT Routine Influenza due to influenza A subtype H1N1 virus with pneumonia Chronic hypoxemic respiratory failure (HCC) 1 Occurrences starting 09/17/2024 until 10/17/2025 [facility] Work Phone: Comment on above: 1 Occurrences starti ng 09/17/2024 until 10/17/2025 Patient Education ED Influenza (Adult) [facility] Work Phone: Patient referral [facility] Work Phone: REFER FOR ADMIT INTERVIEW REFER FOR ADMIT INTERVIEW Procedures Routine Glenohumeral arthritis, right Pre-op exam Ordered: 05/28/2024 [facility] Comment on above: Ordered: 05/28/2024 End: 12-09-2024 SPIROMETRY BASELINE ONLY SPIROMETRY BASELINE ONLY PFT Routine ILD (interstitial lung disease) (HCC) 1 Occurrences starting 11/10/2023 until 12/09/2024 [facility] Work Phone: Comment on above: 1 Occurrences starti ng 11/10/2023 until 12/09/2024 SPIROMETRY BASELINE ONLY SPIROME TRY BASELINE ONLY PFT Routine ILD (interstitial lung disease) (HCC) 05/16/2024 2:33 PM EST [facility] Work Phone: US.doppler Upper extremity vein - left Vascular US upper extremity venous duplex left Vascular Ultrasound Routine Pain in right arm 09/08/2023 9:56 AM [facility] Service Area Work Phone: XR Shoulder - right 3 Views XR SHOULDER GENERAL 3V OR MORE AP/TRUE AP/OTHER RIGHT Radiology Routine Pain 11/29/2023 11:24 AM EDT [facility] Work Phone: End: 05-27-2025 XR Shoulder - right 3 Views XR SHOULDER GENERAL 3V OR MORE AP/TRUE AP/OTHER RIGHT Radiology Routine Glenohumeral arthritis, right Pre-op exam 1 Occurrences starting 05/28/2024 until 05/27/2025 [facility] Comment on above: 1 Occurrences starti ng 05/28/2024 until 05/27/2025 XR Shoulder - right 3 Views XR SHOULDER GENERAL 3V OR MORE AP/TRUE AP/OTHER RIGHT Radiology Routine Glenohumeral arthritis, right Pre-op exam 07/17/2024 10:29 AM EST [facility] Work Phone: End: 10-25-2025 XR Shoulder - right 3 Views XR SHOULDER GENERAL 3V OR MORE AP/TRUE AP/OTHER RIGHT Radiology Routine Status post reverse total shoulder replacement, right 1 Occurrences starting 09/25/2024 until 10/25/2025 [facility] Work Phone: Comment on above: 1 Occurrences starti ng 09/25/2024 until 10/25/2025 TSH WITH REFLEX TO FREE T4 IF ABNORMAL -[facility] Work Phone: Comment on above: Approx [id number] [facility] NEGATED: Highlighted row has been ruled out! Planned Goals not documented [facility] Work Phone: Immunizations Immunization Date Immunization Notes Care Provider Fa [facility] 02-10-2024 pneumococcal conjuga te (PCV20) vaccine, 20 valent (PREVNAR 20) Donnie Snow MD Work Phone: [facility] 04-20-2023 influenza, injectabl e, quadrivalent, contains preservative Xr A21 [facility] 04-20-2023 influenza virus vaccine, unspecified formulation Treatment Wstr Work Phone: [facility] 05-25-2021 influenza, injectabl e, quadrivalent, preservative free; Translations: [Flulaval Quadrivalent 0.5 ML Intramuscular Suspension Prefilled Syringe] Sharon Abraham Work Phone: [facility] Comment on above: Series: 05-25-2021 influenza, seasonal, injectable Evaristo Du DIRECTOR AND PROFESSOR-DIESEL ENGINE MECHANIC Work Phone: [facility] Work Phone: 05-25-2021 influenza virus vaccine, unspecified formulation Evaristo Du DIRECTOR AND PROFESSOR-DIESEL ENGINE MECHANIC Work Phone: [facility] Work Phone: 08-27-2019 pneumococcal conjuga te vaccine, 13 valent Evaristo Du DIRECTOR AND PROFESSOR-DIESEL ENGINE MECHANIC Work Phone: [facility] Work Phone: 08-16-2019 tuberculin skin test ; purified protein derivative solution, intradermal Evaristo Du DIRECTOR AND PROFESSOR-DIESEL ENGINE MECHANIC Work Phone: [facility] Work Phone: 02-20-2017 influenza, seasonal, injectable Sharon Abraham Work Phone: [facility] 04-19-2014 influenza, seasonal, injectable Sharon Salinas Leigh Work Phone: [facility] 03-06-2012 influenza nasal, unspecified formulation Donnie Snow MD Work Phone: [facility] 03-06-2012 influenza virus vaccine, unspecified formulation Vandana Stevens PA-C Work Phone: [facility] Work Phone: 1965 pneumococcal conjuga te vaccine, 7 valent Donnie Snow MD Work Phone: [facility] 1965 pneumococcal conjuga te vaccine, 7 valent Olga Lidia [facility] Payers Date Payer Category Payer Self-pay [id number] 2024 Medicare [id number] 2023 Medicare (Managed Care) [id number]. [id number] 2007 Medicare [id number] 2007 Medicare [id number] 2007 Medicare [id number] .[id number] 2007 Unknown 1964 Unknown [id number] 2.16.840.1.492947.3.579.2.9 1964 Unknown [id number] 2.16.840.1.558941.3.579.2.1 1964 Unknown [id number] 2.16.840.1.602559.3.579.2.1 1964 Unknown [id number] 2.16.840.1.680160.3.579.2.1 1964 Unknown [id number] 2.16.840.1.550738.3.579.2.1 1964 Unknown [id number] 2.16.840.1.095335.3.579.2.1 1964 Unknown [id number] 2.16.840.1.986979.3.579.2.1 1964 Unknown [id number] 2.16.840.1.337675.3.579.2.1 1964 Unknown [id number] 2.840.1.339348.3.579.2.1 1964 Unknown [id number] 2.16.840.1.814403.3.579.2.1 1964 Unknown [id number] 2.840.1.615335.3.579.2.1 1964 Unknown [id number] 2.840.1.441294.3.579.2.1 1964 Unknown [id number] 2.16840.1.597970.3.579.2.1 1964 Unknown [id number] 2.840.1.171865.3.579.2.3 1964 Unknown [id number] 2.840.1.950814.3.579.2.3 1964 Unknown [id number] 2.840.1.643899.3.579.2.3 1964 Unknown [id number] 2.16840.1.294970.3.579.2.3 1964 Unknown [id number] 2.16840.1.640941.3.579.2.3 1964 Unknown [id number] 2.840.1.763785.3.579.2.3 56 1964 Unknown [id number] 2.16.840.1.149466.3.579.2.3 56 1964 Unknown [id number] 2.16.840.1.381507.3.579.2.3 56 1964 Unknown [id number] 2.16.840.1.761168.3.579.2.3 56 1964 Unknown [id number] 2.16.840.1.761361.3.579.2.3 56 1964 Unknown [id number] 2.16.840.1.403443.3.579.2.3 56 1964 Unknown [id number] 2.16.840.1.293109.3.579.2.9 03 1964 Unknown [id number] 2.16840.1.659248.3.579.2.1 243 1964 Unknown [id number] 2.16840.1.571497.3.579.2.1 243 1964 Unknown [id number] 2.16840.1.889119.3.579.2.1 243 1964 Unknown [id number] 2.16840.1.647470.3.579.2.1 245 1964 Unknown [id number] 2.16840.1.325140.3.579.2.1 244 1964 Unknown [id number] 2.16840.1.494945.3.579.2.1 244 1964 Unknown [id number] 2.16840.1.182876.3.579.2.1 244 Unknown [id number] Medicaid MEDICAID [id number] Medicare MEDICARE MEDICAR E PART A & B [id number] Effective for all dates [place] [id number] .[id number] Unknown [id number] 2.16.840.1.728065.3.579.2.4 62 Unknown [id number] 2.16.840.1.278440.3.579.2.4 62 Unknown [id number] 2.16.840.1.069274.3.579.2.4 62 Unknown [id number] 2.16.840.1.472799.3.579.2.4 62 Unknown [id number] 2.16.840.1.415892.3.579.2.4 62 Social History Date Type Detail Facility Start: 09-11-2019 End: 04-23-2023 Tobacco smoking status NHIS Unknown if ever smoked [facility] Start: 1965 Sex Assigned At Not on file [facility] Start: 09-11-2022 End: 05-18-2024 Exposure to SARS-CoV-2 (event) Not sure [facility] Start: 06-09-2024 End: 06-19-2024 Exposure to SARS-CoV-2 (event) Unable to assess [facility] Start: 11-08-2022 End: 11-18-2023 Never a smoker Never a smoker [facility] Start: 1965 Sex Assigned At Female [facility] Start: 01-28-2011 End: 07-07-2024 Tobacco smoking status NHIS Never smoked tobacco [facility] Work Phone: Start: 01-28-2011 End: 07-07-2024 Tobacco use and exposure Smokeless tobacco non-user [facility] Work Phone: Start: 11-08-2022 End: 11-14-2024 Alcohol intake Current drinker of alcohol (finding) [facility] Start: 11-08-2022 End: 11-18-2023 Tobacco use panel [facility] Adult Depression Screening Assessment 4 [facility] Start: 12-01-2018 Gender identity Identifies as female gender (finding) [facility] Start: 07-05-2023 End: 06-19-2024 Alcohol intake Lifetime non-drinker (finding) [facility] Work Phone: NEGATED: Highlighted row - - [facility] Work Phone: NEGATED: Highlighted rowStart: MARQUESF History of tobacco use Passive smoker [facility] Medical Equipment Procedure Code Equipment Code Equipment Origin al Text Equipment Identifier Dates Walter Weinstein Sub facial - [id number] Start: 05-11-2010 DOUGH,CEMENT 6191-1-010 FDA Start: 02-04-2021 ([id number]) Polyethylene pat harry prosthesis ()[id number] FDA Start: 02-04-2021 ([id number]) Tibial insert ()[id number] FDA Start: 02-04-2021 DOUGH,CEMENT 6191-1-010 FDA Start: 02-04-2021 DOUGH,CEMENT 6191-1-010 FDA Start: 02-04-2021 PLUG,BONE MEDIUM FDA Start: 02-04-2021 PLUG,BONE MEDIUM FDA Start: 02-04-2021 ([id number]) Uncoated knee ti [place] prosthesis, metallic ()[id number] FDA Start: 02-04-2021 ([id number]) Uncoated knee ti [place] prosthesis, metallic ()[id number] FDA Start: 02-04-2021 ([id number]) Knee femur stem prosthesis ()[id number] FDA Start: 02-04-2021 ([id number]) Knee femur stem prosthesis ()[id number] FDA Start: 02-04-2021 Hypersuture Fdc Needled Polyblend White/Black 40in #2 [id number] Start: 07-02-2024 Stem Djo Surgica l Altivate Reverse 8mm 48mm Humeral Small Shell Sterile - [id number] Start: 07-02-2024 Insert Ar Small [id number] Neutral Eplus - [id number] Start: 07-02-2024 Baseplate Rsp P2 30mm Glenoid Sterile - [id number] Start: 07-02-2024 Screw Rsp 5mm 18 mm Bone Lock Glenoid Baseplate Shoulder - [id number] Start: 07-02-2024 Screw Rsp 5mm 18 mm Bone Lock Glenoid Baseplate Shoulder - [id number] Start: 07-02-2024 Screw Rsp 5mm 26 mm Bone Lock Glenoid Baseplate Shoulder - [id number] Start: 07-02-2024 Screw Rsp 5mm 26 mm Bone Lock Glenoid Baseplate Shoulder - [id number] Start: 07-02-2024 Goals Date Patient Goal Desired Activity /State Functional Status Date Assessment Result Facility 07-07-2024 Are you deaf, or do you have serious difficulty hearing No 07/07/2024 6:39 PM Colette Valdes RN No [facility] 07-07-2024 Are you blind, or do you have serious difficulty seeing, even when wearing glasses No 07/07/2024 6:39 PM Colette Valdes, JAYLA No [facility] 07-07-2024 Do you have serious difficulty walking or climbing stairs No 07/07/2024 6:39 PM Colette Valdes, JAYAL No [facility] 07-07-2024 Do you have difficul ty dressing or bathing Yes 07/07/2024 6:39 PM Colette Valdes, JAYLA Yes [facility] 07-07-2024 Because of a physica l, mental, or emotional condition, do you have difficulty doing errands alone such as visiting a physician's office or shopping Yes 07/07/2024 6:39 PM Colette Valdes, JAYLA Yes [facility] NEGATED: Highlighted row Functional performance Functional status health issues are not documented Disease [facility] Work Phone: Mental Status Date Assessment Result Facility 07-07-2024 Because of a physical, mental, or emotional condition, do you have serious difficulty concentrating, remembering, or making decisions Yes 07/07/2024 6:39 PM Colette Valdes, JAYLA Yes [facility] 04-23-2023 Cognitive function Level Of Cons ciousness Awake;Alert;Appropriate ;Follows Commands [facility] Work Phone: NEGATED: Highlighted row Cognitive function [Interpretation] Cognitive status health issues are not documented [facility] Work Phone: Clinical Notes 12-04-2020 to 11-14-2024 Faiza Santana RT(R) - 11/14/2024 9:40 AM EDTPatient InstructionsVincenzo Lynn APRN.DIESEL ENGINE MECHANIC - 11/14/2024 9:00 AM EDTCAvinash rey RT(R) - 11/09/2024 8:20 AM EDTPatient Instructions Note Date & Type Note Facility 11-14-2024 History of Present illness Narrative Radiology Service Progress Note PATIENT NAME: Tennille Ortiz DATE OF SERVICE: November 14, 2024 TIME: 9:50 AM PATIENT IDENTITY VERIFICATION COMPLETED USING TWO (2) IDENTIFIERS: Name and Date of confirmed by patient verbally. FALL SCREENING: Has the patient had 2 falls in the last year or 1 fall with injury or currently using an Ambulatory Assistive Device (Walker, Cane, Wheelchair, Crutches, etc.)? No PATIENT GENDER DATA: Assigned female at . status: : No status: NO. PATIENT RELEVANT IMPLANT DATA REVIEWED: Not Applicable PATIENT PRESENTS WITH AN IMPLANTABLE OR ATTACHED BLOOD BANK BOOKING CLERK: No RADIOLOGY DEPARTMENT: General X-ray: Exam(s) Completed: Chest X-Ray PERIPHERAL IV DATA: Not applicable SIGNED BY: RT Eli(R) November 14, 2024 9:50 AM documented in this encounter [facility] 11-14-[address] [facility] 11-14-2024 Instructions Vincenzo Lynn APRN.DIESEL ENGINE MECHANIC - 11/14/2024 9:25 AM EDT [facility] is aware of the order to check your oxygen overnight. Watch for the device to be dropped off within the next few days. If you don't receive it by Tuesday, please let our office know. I will let you know once I have the results of your overnight oxygen test. Chest xray today. Try liquid guaiFENesin that you were prescribed last time. If it is helpful, let me know and I can write a prescription for more. Try to increase water intake to keep mucus thin and easier to cough up. documented in this encounter [facility] 11-14-2024 History of Present illness Narrative Images from the original note were not included. 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 She has a history of tracheostomy tube as well as PEG tube placement, both have been reversed. [place] 08/29/24 as a hospital follow-up. She was admitted for PNA the setting of Influenza A. Discharged home on Prednisone (did not take Levaquin as prescribed d/t swallowing difficulty) and supplemental O2. Had persistent cough, wheezing and exertional dyspnea. Advised crushing Levaquin and given Guaifenesin. Chest xray with persistent LLL opacity. Not currently on inhaled therapy. Following her last visit, she underwent oximetry with ambulation did not show continued need for supplemental O2. Needs to complete nocturnal testing but [employer] has not sent forehead probe to complete overnight testing. Needs forehead probe d/t contractures in hands d/t scleroderma. She is upset she has not received the test and continues to pay for supplemental O2. Overall, she reports feeling significantly improved since her last visit. She has noted an increase in mucus production over the past few days with change in weather and using the air conditioner. Coughed up some green sputum once but is otherwise white/clear. Drinking dairy products makes symptoms worse. No current infectious symptoms. She has exertional dyspnea with a lot of walking but not limiting. No chest tightness or wheezing. No recent hospitalizations or ED visits or upper respiratory infections. DME: [employer] [facility] Currently wearing supplemental oxygen as needed PAST MEDICAL HISTORY Diagnosis Date Acquired fusion of cervical spine 06/18/2024 Adnexal mass 03/07/2013 Asymptomatic Plan: - Follow with Pelvic Ultrasound Age-related osteoporosis without current pathological fracture 01/13/2023 Asthma Asthma 08/26/2017 Coagulation defect, unspecified (HCC) 10/17/2023 Current chronic use of systemic steroids 01/13/2023 Degenerative skin disorder 05/10/2005 Depression 08/24/2017 DUB (dysfunctional uterine bleeding) Expected difficult intubation 07/02/2024 Fracture of vertebra due to osteoporosis ([facility]) 01/13/2023 Glenohumeral arthritis, right 04/01/2024 Hard to intubate 07/02/2024 Hyperlipidemia 08/17/2019 Hypoglycemia Hypothyroidism ILD (interstitial lung disease) ([facility]) Ischemia of digits of hand 08/22/2017 Muscular deconditioning 09/13/2011 Occipital neuralgia of right side 03/29/2023 Palpitations 03/08/2013 Personal history of DVT (deep vein thrombosis) 07/03/2024 Polymyositis ([facility]) Postoperative pain 07/03/2024 Preop exam for internal medicine Protein-calorie malnutrition ([facility]) 10/17/2023 Raynaud's syndrome Raynaud's disease Restless leg syndrome 03/07/2013 Restrictive lung disease Sleep apnea 02/11/2011 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 Unspecified hypothyroidism 08/03/2005 Urine, incontinence, stress female 05/12/2010 Uterovaginal prolapse 05/12/2010 Vitamin D deficiency Allergies: Fortaz [Ceftazidime] Hives Comment:Hives, itching, peeling, Aspirin Comment:capillaries break Betadine [Povidone-* Itching Carbidopa-Levodopa GI Upset Comment:Nausea, dry heaves, Headache Clindamycin Other: See Comments Comment:Skin peel, red rash, weight gain, swelling in the face and legs. Itchy. Doxycycline Shortness of Breath, Myalgia Erythromycin Base Comment:diarrhea Penicillins Hives Comment:Tolerated zosyn 02/09 Medication List Accurate as of November 13, 2024 12:58 PM. If you have any questions, ask your nurse or doctor. CONTINUE taking these medications albuterol 2.5 mg /3 mL (0.083 %) nebulizer solution Commonly known as: PROVENTIL Use 3 mL via nebulizer every 4 hours. CALCIUM 300 ORAL cholecalciferol 400 unit Tab Commonly known as: VITAMIN D3 levothyroxine 100 mcg tablet Commonly known as: SYNTHROID Take 1 tablet by mouth daily before breakfast. multivitamin tablet Nebulizer and Compressor For Neb 1 Device as needed. Use as directed. ondansetron orally disintegrating 4 mg disintegrating tablet Commonly known as: ZOFRAN ODT Take 1 tablet by mouth every 8 hours as needed for nausea/vomiting. OXYGEN (HOME THERAPY) Inhale 2 L/min as instructed as directed. PARoxetine 10 mg tablet Commonly known as: PAXIL predniSONE 1 mg tablet Commonly known as: DELTASONE Take 4 tablets by mouth once daily. rOPINIRole 1 mg tablet Commonly known as: REQUIP rosuvastatin 20 mg tablet Commonly known as: CRESTOR sodium chloride 7% solution 7 % solution for nebulization Inhale 4 mL as instructed twice daily. tiZANidine 2 mg tablet Commonly known as: ZANAFLEX triamcinolone acetonide 0.1 % cream Commonly known as: KeNALog DATA: I personally reviewed and analyzed all labs, radiographs and available pulmonary function testing PFT: 05/2024 Spirometry indicates no obstruction. The reduced FVC could indicate restriction, recommend lung volumes for definitive determination. See RT notes above which may affect results. CXR: Last XR Chest - Impression Only XR CHEST 2V FRONTAL/LAT Exam End: 08/29/2024 12:28 PM (Final result) Impression: IMPRESSION: Left lower lobe airspace disease is suspicious for pneumonia. Follow-up recommended ... CT Chest: 11/2023 IMPRESSION: 1. Again noted is pulmonary fibrosis which is most pronounced in bilateral posterior lower lobes. There has been a slight increase in prominence of cystic changes in the left lower lobe. Findings are most likely due to chronic aspiration. 2. No new thoracic lymphadenopathy Director Of Marketing Operations: RUSS Transcribe Date/Time: Dec 05 2023 11:46A Dictated by : DAMARI GREY MD This examination was interpreted and the report reviewed and electronically signed by: DAMARI GREY MD on Dec 05 2023 12:06PM EST Results-Findings * * *Final Report* * * DATE OF EXAM: Nov 29 2023 11:39AM [facility] 0541 - CT CHEST WO IVCON / PROCEDURE REASON: multiple diagnoses * * * * Physician Interpretation * * * * EXAMINATION: CHEST CT WITHOUT CONTRAST CLINICAL HISTORY: Dyspnea on exertion Technique: Spiral CT acquisition of the chest from the thoracic inlet to the upper abdomen without contrast. MQ: [id number] CT Radiation dose: Integrated Dose-length product (DLP) for this visit = 184 mGy*cm CT Dose Reduction Employed: Automated exposure control(AEC) and iterative recon Comparison: CT chest 02/04/2015 RESULT: Limitations: None. Lines, tubes, and devices: None. Lung parenchyma and airways: Again noted are reticular opacities with traction bronchiectasis and subpleural cystic changes in the medial right lower lobe, posterior left upper lobe and left lower lobe. Cystic changes in the left lower lobe appears slightly more pronounced compared to the prior study. Unchanged appearance of mild subpleural cystic structures in the anterior medial right upper lobe. No consolidation. No suspicious pulmonary nodules. Central airways are patent. Pleural space: No pleural effusion. No pleural thickening. Lower neck, lymph nodes, and mediastinum: The imaged thyroid gland is normal. No lymphadenopathy in the supraclavicular, axillary, mediastinal, or hilar regions. Heart, pericardium, and thoracic vessels: The thoracic aorta and main pulmonary artery are normal in caliber. The cardiac chambers are normal in size. Mild coronary artery atherosclerotic calcifications are noted, although the study is not optimized for coronary assessment. No pericardial effusion or thickening. Bones and soft tissues: No destructive bone lesion. Remote compression fracture of the vertebral body of T6. Moderate left and severe right glenohumeral degenerative disease. Chest wall is unremarkable. Upper abdomen: No abnormality in the imaged upper abdomen. Localizer images: No additional findings. Review of Systems Constitutional: Negative for activity change, appetite change, fatigue and unexpected weight change. HENT: Negative for congestion, mouth sores, postnasal drip and sinus pain. Respiratory: Positive for cough. Negative for chest tightness, shortness of breath and wheezing. Cardiovascular: Negative for chest pain, palpitations and leg swelling. Neurological: Negative for weakness and headaches. BP 102/62 Pulse 60 Resp 18 Wt 38.8 kg (85 lb 9.6 oz) LMP 04/12/2010 SpO2 98% BMI 15.41 kg/m Physical Exam Vitals reviewed. Constitutional: General: She is not in acute distress. Appearance: Normal appearance. She is cachectic. She is not ill-appearing. HENT: Head: Normocephalic. Nose: No rhinorrhea. Mouth/Throat: Mouth: Mucous membranes are moist. Pharynx: No oropharyngeal exudate. Cardiovascular: Rate and Rhythm: Normal rate and regular rhythm. Heart sounds: Normal heart sounds. Pulmonary: Effort: Pulmonary effort is normal. No respiratory distress. Breath sounds: No wheezing or rhonchi. Musculoskeletal: Right lower leg: No edema. Left lower leg: No edema. Comments: B/l upper extremity contractures Lymphadenopathy: Cervical: No cervical adenopathy. Skin: General: Skin is warm and dry. Capillary Refill: Capillary refill takes less than 2 seconds. Neurological: General: No focal deficit present. Mental Status: She is alert. ASSESSMENT/PLAN: 1. ILD (interstitial lung disease) (HCC) - ICD9: 515, ICD10: J84.9 (primary diagnosis) 2. Pulmonary aspiration of gastric contents, subsequent encounter - ICD9: V58.89, 934.9, ICD10: T17.818D - CT changes consistent with chronic aspiration. Patient denies current difficulty with swallowing except with large pills. Has to eat slowly in small quantities. 3. Pneumonia of left lower lobe due to infectious organism - ICD9: 486, ICD10: J18.9 - follow-up imaging d/t cough symptoms over the past few days - XR CHEST 2V FRONTAL/LAT 4. Chronic hypoxemic respiratory failure (HCC) - ICD9: 518.83, 799.02, ICD10: J96.11 - recent testing without need for O2 during the day. Contacted [employer] today regarding sending patient monitor with forehead probe for testing. Patient advised that if she does not receive monitor within the next few days to notify the office. F/u 4 months Portions of this documentation were copied and pasted from previous office visit notes in order to provide a cohesive continuity of the history. The note has been reviewed and edited and updated as necessary. Vincenzo Lynn APRN.RICH I spent a total of 25 minutes on the date of the service which included preparing to see the patient, [id number] patient care, completing clinical documentation, performing a medically appropriate examination, counseling and educating the patient/family/caregiver, and ordering medications, tests, or procedures. documented in this encounter [facility] 11-14-[address] [facility] 11-09-2024 History of Present illness Narrative Radiology Service Progress Note PATIENT NAME: Tennille Ortiz DATE OF SERVICE: November 09, 2024 TIME: 8:12 AM PATIENT IDENTITY VERIFICATION COMPLETED USING TWO (2) IDENTIFIERS: Name and Date of confirmed by patient verbally. FALL SCREENING: Has the patient had 2 falls in the last year or 1 fall with injury or currently using an Ambulatory Assistive Device (Walker, Cane, Wheelchair, Crutches, etc.)? No PATIENT GENDER DATA: Assigned female at . status: : No status: NO. PATIENT RELEVANT IMPLANT DATA REVIEWED: Not Applicable PATIENT PRESENTS WITH AN IMPLANTABLE OR ATTACHED BLOOD BANK BOOKING CLERK: No RADIOLOGY DEPARTMENT: Bone Density PERIPHERAL IV DATA: Not applicable SIGNED BY: RT Santiago(R) November 09, 2024 8:12 AM documented in this encounter [facility] 11-09-[address] [facility] 10-17-2024 Telephone encounter Note Order faxed to [facility] Marixa Cunha LPN [facility] 10-17-2024 Miscellaneous Notes Order faxed to [facility] Marixa Cunha LPN [facility] asking for nocturnal SPO2 order that specifies forehead probe to be faxed to [phone] Marixa Cunha LPN Shelley calling from [facility] and states she is returning your call. She can be reached at [phone] documented in this encounter [facility] 10-16-2024 Telephone encounter Note [facility] asking for nocturnal SPO2 order that specifies forehead probe to be faxed to [phone] Marixa Cunha LPN [facility] 10-16-2024 Telephone encounter Note Shelley calling from [facility] and states she is returning your call. She can be reached at [phone] [facility] 09-25-2024 Instructions Heri Pappas PA-C - 09/25/2024 10:37 AM EDT Heri Crow [phone] ([employer] Supervisor) Follow up on 12/26/[address] Crow at [facility] with new x-rays at 2 pm documented in this encounter [facility] 09-25-[address] [facility] 09-25-2024 History of Present illness Narrative [facility] NOTE Department of Orthopaedics Maykel Crow M.D. NAME: Tennille Ortiz [facility] NO.: [id number] DATE: September 25, 2024 DATE OF SURGERY: 07/02/24, right reverse total shoulder arthroplasty with biceps tenodesis. Tennille returns for routine followup, now 3 months out from surgery. She is making good progress with shoulder range of motion and function. She is now able to sleep. She has influenza A and was hospitalized for pneumonia. She is not taking any medication for pain but has Advil as needed. She has been doing some exercises on her own. She is able to comb her hair and pour water in her coffee cup. PHYSICAL EXAMINATION: Physical examination today of the right shoulder shows a well-healed deltopectoral incision. Range of motion testing shows supine passive external rotation at the side to 0 degrees. Supine passive forward elevation is to 70 degrees. Active forward elevation is to 50 degrees, with active internal rotation to the lower lumbar levels. There is 4/5 strength with resisted external rotation at the side and 4/5 strength with resisted Andres maneuver. The right upper extremity is otherwise grossly neurovascularly intact to testing. RADIOGRAPHIC STUDIES: Last XR Shoulder - Impression Only XR SHOULDER GENERAL 3V OR MORE AP/TRUE AP/OTHER RIGHT Exam End: 07/17/2024 10:29 AM (Final result) Impression: IMPRESSION: Interval reverse right shoulder arthroplasty with satisfactory alignment. Transcribed Using Voice Recognition Transcribe Date/Time: Jul 19 2024 12:08P Dictated by: MARLYN PHILLIPS MD... ASSESSMENT: Status post right reverse total shoulder arthroplasty with biceps tenodesis. PLAN: Tennille is now 3 months out from surgery and progressing well. We will advance into both range of motion and strengthening exercises. She is comfortable continuing this as a home routine. I placed an order for formal PT. Her lifting restriction at this point in time should be 10 pounds or less on this side. she will otherwise follow-up in 3-months' time for a 6-month postoperative visit. We will obtain new x-rays at that time. She is agreeable with this plan. If any other questions or concerns arise in the interim, She should not hesitate to call. Heri Pappas PA-C documented in this encounter [facility] 09-21-[address] [facility] 09-21-2024 Procedure note Associated Ord er(s): OXIMETRY WITH AMBULATION RESPIRATORY THERAPY OXIMETRY WITH AMBULATION Oximetry with Ambulation Test for This Encounter O2 Device O2 Adapter NC O2 Flow SpO2% HR Activity Ft Walked (ft) Time (min) Avg Speed (MPH) R/A 100 65 Resting R/A 97 106 Walking, usual pace 375 3 1.42 R/A 98 106 Walking, fastest pace 385 3 1.46 General Information Pulse Oximetry Site Total Time Spent Walking Assistance/O2 Supply Carrier Forehead 30 None NAME: NIMO Preston PATIENT NAME: Tennille Ortiz DATE: September 21, 2024 TIME: 11:09 AM Comment: [facility] 09-21-2024 Procedure note Associated Ord er(s): OXIMETRY WITH AMBULATION RESPIRATORY THERAPY OXIMETRY WITH AMBULATION Oximetry with Ambulation Test for This Encounter O2 Device O2 Adapter NC O2 Flow SpO2% HR Activity Ft Walked (ft) Time (min) Avg Speed (MPH) R/A 100 65 Resting R/A 97 106 Walking, usual pace 375 3 1.42 R/A 98 106 Walking, fastest pace 385 3 1.46 General Information Pulse Oximetry Site Total Time Spent Walking Assistance/O2 Supply Carrier Forehead 30 None NAME: NIMO Preston PATIENT NAME: Tennille Ortiz DATE: September 21, 2024 TIME: 11:09 AM Comment: documented in this encounter [facility] 09-17-2024 Telephone encounter Note Orders placed for oximetry with ambulation and overnight oximetry by HANNAH. Patient scheduled with [facility] and overnight faxed to [facility]. Pt. aware these are needed prior to discontinuing orders. Marixa Cunha LPN [facility] 09-17-2024 Miscellaneous Notes Orders placed for oximetry with ambulation and overnight oximetry by HANNAH. Patient scheduled with [facility] and overnight faxed to [facility]. Pt. aware these are needed prior to discontinuing orders. Marixa Cunha LPN Patient called to request the orders for portable oxygen and oxygen for home use be cancelled. She reports that she she has fully recovered. documented in this encounter [facility] 09-14-2024 Telephone encounter Note Patient called to request the orders for portable oxygen and oxygen for home use be cancelled. She reports that she she has fully recovered. [facility] 08-29-2024 History of Present illness Narrative Radiology Service Progress Note PATIENT NAME: Tennille Ortiz DATE OF SERVICE: August 29, 2024 TIME: 12:26 PM PATIENT IDENTITY VERIFICATION COMPLETED USING TWO (2) IDENTIFIERS: Name and Date of confirmed by patient verbally. FALL SCREENING: Has the patient had 2 falls in the last year or 1 fall with injury or currently using an Ambulatory Assistive Device (Walker, Cane, Wheelchair, Crutches, etc.)? Yes, Patient High Risk for Falls What interventions were put in place to prevent falls during this visit? Offered Assistance with Transfers/Clothing, Instructed Patient to Remain Seated (Not on Exam Table) Until Exam, and Increased Observations by Caregivers PATIENT GENDER DATA: Assigned female at . status: : No status: NO. PATIENT RELEVANT IMPLANT DATA REVIEWED: Yes PATIENT PRESENTS WITH AN IMPLANTABLE OR ATTACHED BLOOD BANK BOOKING CLERK: No RADIOLOGY DEPARTMENT: General X-ray: Exam(s) Completed: Chest X-Ray PERIPHERAL IV DATA: Not applicable SIGNED BY: RT Shonda(R) August 29, 2024 12:26 PM documented in this encounter [facility] 08-29-[address] [facility] 08-29-2024 History of Present illness Narrative Patient: Tennille Ortiz PCP: Evan De MD CC: hospital follow up HPI: Tennille Ortiz 59 year old female non-smoker with PMH significant for asthma, hypothyroidism, longstanding limited systemic sclerosis/polymyositis overlap, Raynaud's, ILD due to aspiration, bronchiectasis, osteoporosis. She has a history of tracheostomy tube as well as PEG tube placement, both have been reversed. Last office visit 07/11/2024. Patient was recently admitted to [facility] August 18, 2024 secondary to Influenza A with Pneumonia. I do not have hospital records (requested them). She states she was discharged home on Prednisone and Levaquin. However, she is not able to take the Levaquin secondary to her swallowing. Daily cough productive of clear sputum. No hemoptysis. Cough is keeping her up at night. Frequent wheezing. Exertional dyspnea with minimal effort. However, she is not exerting much. No fevers, chills, or night sweats. No unintended weight loss. No lower extremity edema. No GERD/heartburn. Currently wearing supplemental oxygen as needed during the day and night. DME: [employer] PAST MEDICAL HISTORY Diagnosis Date Acquired fusion of cervical spine 06/18/2024 Adnexal mass 03/07/2013 Asymptomatic Plan: - Follow with Pelvic Ultrasound Age-related osteoporosis without current pathological fracture 01/13/2023 Asthma Asthma 08/26/2017 Coagulation defect, unspecified (HCC) 10/17/2023 Current chronic use of systemic steroids 01/13/2023 Degenerative skin disorder 05/10/2005 Depression 08/24/2017 DUB (dysfunctional uterine bleeding) Expected difficult intubation 07/02/2024 Fracture of vertebra due to osteoporosis (HCC) 01/13/2023 Glenohumeral arthritis, right 04/01/2024 Hard to intubate 07/02/2024 Hyperlipidemia 08/17/2019 Hypoglycemia Hypothyroidism ILD (interstitial lung disease) ([facility]) Ischemia of digits of hand 08/22/2017 Muscular deconditioning 09/13/2011 Occipital neuralgia of right side 03/29/2023 Palpitations 03/08/2013 Personal history of DVT (deep vein thrombosis) 07/03/2024 Polymyositis ([facility]) Postoperative pain 07/03/2024 Preop exam for internal medicine Protein-calorie malnutrition (HCC) 10/17/2023 Raynaud's syndrome Raynaud's disease Restless leg syndrome 03/07/2013 Restrictive lung disease Sleep apnea 02/11/2011 Systemic sclerosis (HCC) limited Unspecified hypothyroidism 08/03/2005 Urine, incontinence, stress female 05/12/2010 Uterovaginal prolapse 05/12/2010 Vitamin D deficiency Allergies: Fortaz [Ceftazidime] Hives Comment:Hives, itching, peeling, Aspirin Comment:capillaries break Betadine [Povidone-* Itching Carbidopa-Levodopa GI Upset Comment:Nausea, dry heaves, Headache Clindamycin Other: See Comments Comment:Skin peel, red rash, weight gain, swelling in the face and legs. Itchy. Doxycycline Shortness of Breath, Myalgia Erythromycin Base Comment:diarrhea Penicillins Hives Comment:Tolerated zosyn 02/09 predniSONE (DELTASONE) 1 mg tablet Take 4 tablets by mouth once daily. OXYGEN, HOME THERAPY, Inhale 2 L/min as instructed as directed. acetaminophen (TYLENOL EXTRA STRENGTH) 500 mg tablet Take 2 tablets by mouth every 4 hours as needed for pain. ondansetron orally disintegrating (ZOFRAN ODT) 4 mg disintegrating tablet Take 1 tablet by mouth every 8 hours as needed for nausea/vomiting. rOPINIRole (REQUIP) 1 mg tablet Take 1 mg by mouth two times a day. tiZANidine (ZANAFLEX) 2 mg tablet Take 2 mg by mouth every 8 hours as needed. rosuvastatin (CRESTOR) 20 mg tablet Take 1 tablet by mouth once daily. PARoxetine (PAXIL) 10 mg tablet Take 10 mg by mouth once daily. triamcinolone acetonide (KENALOG) 0.1 % cream Apply to affected area two times a day. calcium carbonate (CALCIUM 300 ORAL) Take by mouth. unknown dosage cholecalciferol (VITAMIN D3) 400 unit tab Take by mouth. multivitamin tablet Take by mouth. albuterol (PROVENTIL) 2.5 mg /3 mL (0.083 %) nebulizer solution Use 3 mL via nebulizer every 4 hours. sodium chloride 7% solution 7 % nebu Inhale 4 mL as instructed twice daily. levothyroxine (SYNTHROID) 100 mcg tablet Take 1 tablet by mouth daily before breakfast. Nebulizer and Compressor For Neb Bekah 1 Device as needed. Use as directed. Social History Tobacco Use Smoking status: Never Passive exposure: Never Smokeless tobacco: Never Vaping Use Vaping status: Never Used Substance Use Topics Alcohol use: Yes Comment: occasionally Drug use: No Family History Problem Relation Age of Onset Heart Mother Heart Father Cervical Cancer Sister Alzheimer's Disease Maternal Grandmother Cancer Maternal Grandmother unsure Heart Paternal Grandfather other (negative [Other]) Other negative for breast, ovary or endometrial PAST SURGICAL HISTORY Procedure Laterality Date APPENDECTOMY ARTHRP ACETBLR/PROX FEM PROSTC AGRFT/ALGRFT right hip DILATION & CURETTAGE DX&/THER NONOBSTETRIC Dilation & curettage LIG/TRNSXJ FLP TUBE ABDL/VAG APPR UNI/BI Tubal ligation MIDLINE INSERTION/CONSULT 08/22/2017 PAST SURGICAL HISTORY OF GI tube PAST SURGICAL HISTORY OF right vascular reconstruction PAST SURGICAL HISTORY OF tracheostomy PAST SURGICAL HISTORY OF removal of calcium deposits from right hand PAST SURGICAL HISTORY OF 2009 Hysterectomy Ovaries Intact PAST SURGICAL HISTORY OF 07/02/2024 RIGHT TOTAL SHOULDER ARTHROPLASTY, STANDARD VERSUS REVERSE VERSUS HEMIARTHROPLASTY (Right) I reviewed the past medical history, family history, social history and surgical history with changes noted above and updated in EMR. IMMUNIZATIONS Immunization History Administered Date(s) Administered influenza (IIV3) vaccine, age 6 mo - 64 yr, trivalent (AFLURIA, FLULAVAL, FLUVIRIN, FLUZONE) 04/19/2014 influenza (IIV3) vaccine, trivalent (AFLURIA, FLULAVAL, FLUVIRIN, FLUZONE) 02/20/2017 05/25/2021 influenza (IIV4) vaccine, age 6 mo - 64 yr, quadrivalent (AFLURIA, FLULAVAL, FLUZONE) 04/20/2023 influenza (IIV4) vaccine, age 6 mo - 64 yr, quadrivalent, PF (AFLURIA, FLUARIX, FLULAVAL, FLUZONE) 05/25/2021 influenza (LAIV) vaccine, nasal, unspecified formulation 03/06/2012 influenza vaccine, unspecified formulation 03/06/2012 pneumococcal (PCV7) vaccine, 7 valent (PREVNAR 7) 1965 pneumococcal conjugate (PCV13) vaccine, 13 valent (PREVNAR 13) 08/27/2019 pneumococcal conjugate (PCV20) vaccine, 20 valent (PREVNAR 20) 02/10/2024 tuberculin skin test, unspecified formulation 08/22/2019 08/29/2019 ROS: All other systems reviewed as negative except for what is noted in HPI and review of systems. PHYSICAL EXAMINATION: Pulse 78 Resp 22 LMP 04/12/2010 SpO2 97% Gen: No acute distress. Cooperative with examination. In Wheelchair HEENT: Normocephalic. Sclera, conjunctiva clear. Oral hygeine and dentition poor. No thrush. Resp: No stridor, accessory respiratory muscle use, supra-sternal or intercostal retractions. No wheezes. Bibasilar crackles, left > right. CV: Regular rythm. Heart tones normal. Radial pulses normal. Ext: Chronic deformities bilateral hands and fingers. Neuro: Mental status normal. Affect normal. No tremor. 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 Start of test and EOFE criteria met. patient was unable to open her mouth wide enough for mouthpiece. added corrugated tubing to white rubber lip seal. IMPRESSION: Spirometry indicates no obstruction. The reduced FVC could indicate restriction, recommend lung volumes for definitive determination. See RT notes above which may affect results. Electronically Signed On 05-17-2024 06:24:26 EST by Murphy Bills MD ID: [id number] Name: TENNILLE ORTIZ Race: White Ht: 60.63 in Wt: 90.00 lbs Age: 59 Gender: Female : 1965 Dx: Idiopathic interstitial pulmonary disease_ Smoking Hx: Non-smoker Doctor: MURPHY BILLS Test Date: 05/16/2024 Site: Tech: [facility] PRE-BRONCH POST-BRONCH Pre LLN Pred ULN %Pred Post %Pred %Chg SPIROMETRY FVC (L) 0.94 1.87 2.58 3.31 36 FEV1 (L) 0.79 1.49 2.08 2.64 37 FEV1/FVC 0.84 0.68 0.81 0.91 103 PEF L/s (L/sec) 1.90 4.23 5.77 7.30 32 FEF50 (L/sec) 1.11 1.45 3.06 4.67 36 FIF50 (L/sec) 1.97 FEF50/FIF50 0.56 90-100 FIVC (L) 0.90 NMV94-91 (L/sec) 0.93 1.07 2.09 3.47 44 Time (sec) 3.17 FET PEF (sec) 0.11 DARON (L) 0.03 Vol Extrap % (%) 4 Comments: Current ATS/ERS acceptability and repeatability standards for spirometry met. Start of test and EOFE criteria met. patient was unable to open her mouth wide enough for mouthpiece. added corrugated tubing to white rubber lip seal. Arterial blood gas: pH, Arterial Date Value Ref Range Status 02/11/2021 7.23 (L) 7.35 - 7.45 Final pCO2, Arterial Date Value Ref Range Status 02/11/2021 60 (H) 34 - 46 mm Hg Final pO2, Arterial Date Value Ref Range Status 02/11/2021 164 (H) 85 - 95 mm Hg Final Bicarbonate, Arterial Date Value Ref Range Status 02/11/2021 24 22 - 26 mmol/L Final Base Excess, Arterial Date Value Ref Range Status 02/11/2021 NEG 3 mmol/L Final Lactate Date Value Ref Range Status 02/12/2021 1.2 0.5 - 2.2 mmol/L Final CT Chest other findings: Last CT Chest - Impression Only CT CHEST WO IVCON Exam End: 11/29/2023 11:39 AM (Final result) Impression: IMPRESSION: 1. Again noted is pulmonary fibrosis which is most pronounced in bilateral posterior lower lobes. There has been a slight increase in prominence of cystic changes in the left lower lobe. Findings are most likely due to chronic aspiration. 2. No new thoracic lymphadenopathy ... Last XR Chest - Impression Only XR CHEST 1V FRONTAL PORT Exam End: 07/05/2024 12:28 PM (Final result) Impression: IMPRESSION: See result. ... ASSESSMENT/PLAN: 1. Acute cough - ICD9: 786.2, ICD10: R05.1 (primary diagnosis) 2. Influenza due to influenza A subtype H1N1 virus with pneumonia - ICD9: 488.11, ICD10: J10.00 Patient recently hospitalized. Advised her to crush the Levaquin and take it in applesauce. Guaifenesin for cough. CXR today. Sputum culture ordered. - GUAIFENESIN 100 MG/5 ML ORAL LIQUID - XR CHEST 2V FRONTAL/LAT - BACTERIAL CULTURE AND GRAM STAIN, RESPIRATORY, SPUTUM AND TRACHEAL ASPIRATE 3. ILD (interstitial lung disease) (HCC) - ICD9: 515, ICD10: J84.9 Severe restriction on PFT. Findings on CT chest most consistent with chronic aspiration. Discussed aspiration and swallowing with patient, but she states she does not have issues with food and liquids. 4. Systemic sclerosis with myopathy (HCC) - ICD9: 710.1, 359.6, ICD10: M34.82 Follows with rheumatology On low-dose prednisone 5. Pulmonary aspiration of gastric contents, subsequent encounter - ICD9: V58.89, 934.9, ICD10: T17.818D See #3 Portions of this documentation were copied and pasted from previous office visit notes in order to provide a cohesive continuity of the history. The note has been reviewed and edited and updated as necessary. Valeria Pittman PA-C documented in this encounter [facility] 08-29-[address] [facility] 08-21-2024 Note [facility] Medical Records Department [address] [place] [id number] Discharge Summary 08/21/24 1456 MR#: [id number] Acct: [id number] Name: TENNILLE ORTIZ Rep #: [id number] : 1965 59 From: Chele Quesada MD PCP: Dr. Evan eD MD Status:ADM IN [id number] Prov[facility] Date of Admission: 08/18/24 Primary Care Physician: Dr. Evan De MD Reason For Visit: FLU A Diagnosis Discharge Diagnosis (1) Hypoxia: Status: Acute Code(s): R09.02 - Hypoxemia (2) Influenza A: Status: Acute Code(s): J10.1 - Influenza due to other identified influenza virus with other respiratory manifestations (3) Right lower lobe pneumonia: Status: Acute Code(s): J18.9 - Pneumonia, unspecified organism Medications at Discharge Home Medications albuterol sulfate 2.5 mg/3 mL (0.083 %) solution for nebulization 2.5 mg inhalation Q6HWA.RT asthma 09/23/13 albuterol sulfate 90 mcg/actuation aerosol inhaler (Ventolin HFA) 1 - 2 puff inhalation Q6H PRN PRN Shortness Of Breath 09/23/13 thaqthkg-ltm-tijwt acid 0.4 mg-lycopene 300 mcg-lutein 250 mcg tablet (Centrum Silver) 1 ea PO DAILY vitamin 09/23/13 prednisone 5 mg tablet 4 mg PO DAILY inflammation 09/23/13 cholecalciferol (vitamin D3) 100 mcg (4,000 unit) capsule 100 mcg PO QODAY supplement 01/12/21 levothyroxine 100 mcg tablet 100 mcg PO DAILY thyroid 01/12/21 trazodone 50 mg tablet 50 mg PO QHS PRN depression 01/12/21 Arthrozene 1 cap PO/SL DAILY 01/28/21 acetaminophen 500 mg tablet 1,000 mg (2 x 500 mg) PO TID pain #100 tabs 02/06/21 paroxetine HCl 10 mg tablet (Paxil) 10 mg PO DAILY mental health 08/18/24 ropinirole 1 mg tablet 1 mg PO BID restless legs 08/18/24 rosuvastatin 20 mg tablet 20 mg PO DAILY cholesterol 08/18/24 levofloxacin 750 mg tablet 750 mg PO DAILY 6 days #6 tabs 08/21/24 prednisone 10 mg tablet 10 mg PO DAILY #32 tabs 08/21/24 Hospital Course Operations None Procedures None Summary of Care Provided Minutes Spent on Discharge: 37 Hospital Course: Per HPI: TENNILLE ORTIZ, is a 59 F who presents to the hospital with increasing shortness of breath over the last 3 to 5 days. She started having increasing work of breathing and a cough. She presented today because of increased shortness of breath and was found to have influenza A. Chest x-ray also demonstrates right lower lobe consolidation. Her care is complicated by the fact that she has scleroderma and restrictive lung disease. Denies any fevers or chills currently and had a family member who was recently sick with influenza. She does not wear oxygen at home at baseline. Hospital Course: 1. 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 Continue with steroids ??? She is outside the window for Tamiflu though she did get a dose in the ER ??? Continue with inhalers 08/21/2024: She has had significant improvement over the last couple of days. Repeat chest x-ray continues to show of right lobe infiltrate as well as now a left lower lobe superimposed infiltrate. We are unable to get a sputum culture and despite her significant improvement and no longer being hypoxic on steroids and breathing treatments there had been a delay with starting antibiotics, which were started today on the day of discharge. She will receive 7 days of Levaquin on discharge as well as a steroid taper to help with her restrictive lung disease in the setting of her scleroderma after her steroid taper she can resume her daily prednisone. I discussed with her the plan for discharge today and she expressed understanding of the risks and benefits of going home and would like to go home today. 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 2. Hypothyroidism ??? Stable ??? Continue with Synthroid 3. Anxiety/depression ??? Stable ??? Continue with her home medications Physical Exam Narrative General: Alert, Oriented x3, Cooperative, No apparent distress HEENT: Atraumatic, PERRLA, EOMI, Normocephalic Oral: Moist Mucosa Neck: Supple, No JVD Lungs: Diminished, Normal air movement, no rhonchi, No wheeze, No rales Cardiovascular: Regular rate, Regular Rhythm, Normal S1, Normal S2, No murmurs Abdomen: Soft, Non Tender, Non-Distended, No Hepato-splenomegaly Extremities: No edema, Capillary Refill Less than 3 Seconds Skin: No rashes, No breakdown Musculoskeletal: Upper extremity contractures chronic Neurological: No focal neurological deficits, contractures and movements at baseline Psych/Mental Status: Normal Affect, Appropriate Medical Records Data Medical Nutrition Assessment Dietitian: Malnutrition Criteria Met Start: 08/18/24 12:34 Freq: Status: Active Protocol: Document 08/18/24 14:36 SB (Rec: 02/15/25 14:36 SB PC46 (more content not included)... [facility] 08-21-2024 Telephone encounter Note Images from the original note were not included. Most recent Rheumatology visit: 04/18/2024 (with Donnie Snow) Last Bone Density on file: 11/08/2022 Rheumatology Care Team: None on file Recent Office Visits - This Specialty 04/18/2024 Age-related osteoporosis without current pathological fracture Rheumatology Donnie Snow MD 01/25/2024 Systemic scleroderma ([facility]) Rheumatology Chasity Suggs PA 10/17/2023 Systemic scleroderma ([facility]) Rheumatology Donnie Snow MD Upcoming Rheumatology Appointments - Next 365 Days No appointments to display CBC: Latest Ref Rng & Units 07/06/2024 07/07/2024 CBC WBC 3.70 - 11.00 k/uL 5.64 4.30 Hemoglobin 11.5 - 15.5 g/dL 9.5 9.6 Hematocrit 36.0 - 46.0 % 32.3 32.3 Platelet Count 150 - 400 k/uL 183 218 Vitamin D: Latest Ref Rng & Units 10/21/2023 04/18/2024 Vitamin D Vitamin D 25 Hydroxy 31.0 - 80.0 ng/mL 47.5 47.2 LFT: Latest Ref Rng & Units 07/06/2024 07/07/2024 CMP Sodium 136 - 144 mmol/L 141 137 Potassium 3.7 - 5.1 mmol/L 4.4 4.4 Chloride 98 - 107 mmol/L 96 92 CO2 22 - 30 mmol/L 34 36 Glucose 74 - 99 mg/dL 93 95 BUN 7 - 21 mg/dL 7 8 Creatinine 0.58 - 0.96 mg/dL 0.23 0.18 Calcium 8.5 - 10.2 mg/dL 8.7 8.9 AST 13 - 35 U/L 34 18 ALT 7 - 38 U/L 114 82 Alkaline Phosphatase 34 - 123 U/L 107 98 Hepatic Function: Creatinine: Latest Ref Rng & Units 07/06/2024 07/07/2024 Creatinine Creatinine 0.58 - 0.96 mg/dL 0.23 0.18 ESR/CRP: None on file in the last 6 months Uric Acid: None on file in the last 6 months Open Standing (Multiple Instance) Lab Orders None Open Future (Single Instance) Lab Orders None [facility] 08-21-2024 Miscellaneous Notes Images from the original note were not included. Most recent Rheumatology visit: 04/18/2024 (with Donnie Snow) Last Bone Density on file: 11/08/2022 Rheumatology Care Team: None on file Recent Office Visits - This Specialty 04/18/2024 Age-related osteoporosis without current pathological fracture Rheumatology Donnie Snow MD 01/25/2024 Systemic scleroderma ([facility]) Rheumatology Chasity Suggs PA 10/17/2023 Systemic scleroderma ([facility]) Rheumatology Donnie Snow MD Upcoming Rheumatology Appointments - Next 365 Days No appointments to display CBC: Latest Ref Rng & Units 07/06/2024 07/07/2024 CBC WBC 3.70 - 11.00 k/uL 5.64 4.30 Hemoglobin 11.5 - 15.5 g/dL 9.5 9.6 Hematocrit 36.0 - 46.0 % 32.3 32.3 Platelet Count 150 - 400 k/uL 183 218 Vitamin D: Latest Ref Rng & Units 10/21/2023 04/18/2024 Vitamin D Vitamin D 25 Hydroxy 31.0 - 80.0 ng/mL 47.5 47.2 LFT: Latest Ref Rng & Units 07/06/2024 07/07/2024 CMP Sodium 136 - 144 mmol/L 141 137 Potassium 3.7 - 5.1 mmol/L 4.4 4.4 Chloride 98 - 107 mmol/L 96 92 CO2 22 - 30 mmol/L 34 36 Glucose 74 - 99 mg/dL 93 95 BUN 7 - 21 mg/dL 7 8 Creatinine 0.58 - 0.96 mg/dL 0.23 0.18 Calcium 8.5 - 10.2 mg/dL 8.7 8.9 AST 13 - 35 U/L 34 18 ALT 7 - 38 U/L 114 82 Alkaline Phosphatase 34 - 123 U/L 107 98 Hepatic Function: Creatinine: Latest Ref Rng & Units 07/06/2024 07/07/2024 Creatinine Creatinine 0.58 - 0.96 mg/dL 0.23 0.18 ESR/CRP: None on file in the last 6 months Uric Acid: None on file in the last 6 months Open Standing (Multiple Instance) Lab Orders None Open Future (Single Instance) Lab Orders None Pt is currently taking 4 mg per day. documented in this encounter [facility] 08-21-2024 Telephone encounter Note Pt is currently taking 4 mg per day. [facility] 08-13-[address] [facility] 08-13-2024 History of Present illness Narrative ORTH CARE COORDINATION POST OPERATIVE NURSE VISIT Patient has been identified by name and date of : Yes Patient was seen by the RN under the direction of Dr. Crow DOS: 07/02/24 Surgery: Right reverse total shoulder arthroplasty, biceps tenodesis Physical Exam: General: No acute distress, alert and oriented x3 Patient was having 0/10 pain at this time in the RIGHT shoulder with activity. She is not currently using pain medication. The deltopectoral incision is clean and dry, well approximated with no redness or erythema. The patient was instructed to be out of the sling. Patient was also instructed to START active RIGHT shoulder motion. The patient was instructed to maintain a 1-2 pound weight bearing restriction. Patient was educated on and instructed to begin Phase One and Phase Two Stretching Exercises. *Assisted Elevation, Assisted External Rotation, and Cross Body Adduction are to be done in a supine position, twice per day, 10 repetitions, holding for 10 seconds on each elevation. *Pendulum Exercise, Assisted Extension and Assisted Internal Towel Rotation should be done as instructed, twice per day, 10 repetitions. Hand out given. Return demonstration done. Patient was instructed to continue hand, wrist and elbow Range of Motion exercises as previously instructed. Patient was educated on the S & S of infection and told to call the office with an questions or concerns. Dr. Crow was present at the appointment to evaluate progress, answer questions and direct the plan of care with the patient. Patient will follow up with Dr. Crow at 12 weeks post operatively. Patient acknowledges information given and has no questions. Social distancing protocols and prevention of the spread of Covid 19 maintained within the limits of examination/evaluation/patient instructions. Kala Pino RN documented in this encounter [facility] 07-17-[address] [facility] 07-17-2024 History of Present illness Narrative ORTH CARE COORDINATION POST OPERATIVE NURSE VISIT Patient has been identified by name and date of : Yes Patient was seen by the RN under the direction of Dr. Jessica Canales DOS: 07/02/24 Surgery: Right reverse total shoulder arthroplasty, biceps tenodesis Patient had X-rays taken today--reviewed by Dr. Crow. Physical Exam: General: No acute distress, alert and oriented x3 Patient was having 0/10 pain at this time in the right shoulder. She is using tylenol when needed for pain relief. The incision was covered with at Steri-strips. The Steristrips were removed and the incision was left uncovered. The deltopectoral incision is clean and dry, well approximated. Edema is minimal. Ecchymosis is minimal. The patient was advised that she may shower with no scrubbing, rubbing or applying lotion to the incision. The incision should be patted versus rubbed when drying. Patient was also instructed to have no active RIGHT shoulder use at this time. This includes no lifting, reaching, pushing or pulling. Maintain non-weight bearing status until the next appointment. The patient was instructed to be out of the sling when at home and seated. She was instructed to wear the sling when sleeping, out of the house and moving around. Patient was educated on and instructed to begin passive supine forward elevation to a limit 120 degrees at this time. Exercises are to be done in a supine position, twice per day, 10 repetitions, holding for 10 seconds on each elevation. Hand out given. Return demonstration done. Patient was instructed to continue hand, wrist and elbow Range of Motion exercises as previously instructed. Patient was educated on the S & S of infection and told to call the office with any questions or concerns. Patient will follow up with the Nurse in 4 weeks/[address] Crow will also see that patient at that time. Patient acknowledges information given and has no questions. The patient agrees to call the office if the incision and surrounding skin change or worsen. Social distancing protocols and prevention of the spread of Covid 19 maintained to the within the limits of examination/evaluation/patient instruction. Kala Pino RN documented in this encounter [facility] 07-11-2024 History of Present illness Narrative Patient: Tennille Ortiz PCP: Evan De MD CC: follow up HPI: Tennille Ortiz 59 year old female non-smoker with PMH significant for asthma, hypothyroidism, longstanding limited systemic sclerosis/polymyositis overlap, Raynaud's, ILD due to aspiration, bronchiectasis, osteoporosis. She has a history of tracheostomy tube as well as PEG tube placement. Most recent CT chest in November 2023 demonstrated bilateral lower lobe pulmonary fibrosis with a slight increase in prominence of cystic changes in the left lower lobe. Patient underwent a right total shoulder arthroplasty on 07/02/2024. CXR 07/05/2024 demonstrated new bibasilar opacities that may represent atelectasis or pneumonia/aspiration. Per medicine consult note 07/02/2024, no signs or symptoms on pneumonia, Procal and WBC normal. She was discharged home on supplemental oxygen. Today, patient reports occasional cough, primarily after using nebulizer. Clear sputum. No hemoptysis. No wheezing. Exertional dyspnea does not limit her activities. No fevers, chills, or night sweats. No unintended weight loss. No lower extremity edema. No GERD/heartburn. Currently wearing 1.5-2L supplemental oxygen continuously. Checking pulse ox frequently. DME: [employer] PAST MEDICAL HISTORY Diagnosis Date Acquired fusion of cervical spine 06/18/2024 Adnexal mass 03/07/2013 Asymptomatic Plan: - Follow with Pelvic Ultrasound Age-related osteoporosis without current pathological fracture 01/13/2023 Asthma Asthma 08/26/2017 Coagulation defect, unspecified (HCC) 10/17/2023 Current chronic use of systemic steroids 01/13/2023 Degenerative skin disorder 05/10/2005 Depression 08/24/2017 DUB (dysfunctional uterine bleeding) Expected difficult intubation 07/02/2024 Fracture of vertebra due to osteoporosis ([facility]) 01/13/2023 Glenohumeral arthritis, right 04/01/2024 Hard to intubate 07/02/2024 Hyperlipidemia 08/17/2019 Hypoglycemia Hypothyroidism ILD (interstitial lung disease) ([facility]) Ischemia of digits of hand 08/22/2017 Muscular deconditioning 09/13/2011 Occipital neuralgia of right side 03/29/2023 Palpitations 03/08/2013 Personal history of DVT (deep vein thrombosis) 07/03/2024 Polymyositis ([facility]) Postoperative pain 07/03/2024 Preop exam for internal medicine Protein-calorie malnutrition ([facility]) 10/17/2023 Raynaud's syndrome Raynaud's disease Restless leg syndrome 03/07/2013 Restrictive lung disease Sleep apnea 02/11/2011 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 Unspecified hypothyroidism 08/03/2005 Urine, incontinence, stress female 05/12/2010 Uterovaginal prolapse 05/12/2010 Vitamin D deficiency Allergies: Fortaz [Ceftazidime] Hives Comment:Hives, itching, peeling, Aspirin Comment:capillaries break Betadine [Povidone-* Itching Carbidopa-Levodopa GI Upset Comment:Nausea, dry heaves, Headache Clindamycin Other: See Comments Comment:Skin peel, red rash, weight gain, swelling in the face and legs. Itchy. Doxycycline Shortness of Breath, Myalgia Erythromycin Base Comment:diarrhea Penicillins Hives Comment:Tolerated zosyn 8/9 OXYGEN, HOME THERAPY, Inhale 2 L/min as instructed as directed. apixaban (ELIQUIS) 5 mg tab(s) Take 2 tablets by mouth once daily for 21 days. acetaminophen (TYLENOL EXTRA STRENGTH) 500 mg tablet Take 2 tablets by mouth every 4 hours as needed for pain. ondansetron orally disintegrating (ZOFRAN ODT) 4 mg disintegrating tablet Take 1 tablet by mouth every 8 hours as needed for nausea/vomiting. acetaminophen (TYLENOL EXTRA STRENGTH) 500 mg tablet Take 2 tablets by mouth every 8 hours as needed for pain. docusate sodium (COLACE) 100 mg capsule Take 1 capsule by mouth two times a day for 14 days. rOPINIRole (REQUIP) 1 mg tablet Take 1 mg by mouth two times a day. predniSONE (DELTASONE) 1 mg tablet Take 4 tablets by mouth once daily. tiZANidine (ZANAFLEX) 2 mg tablet Take 2 mg by mouth every 8 hours as needed. rosuvastatin (CRESTOR) 20 mg tablet Take 1 tablet by mouth once daily. PARoxetine (PAXIL) 10 mg tablet Take 10 mg by mouth once daily. triamcinolone acetonide (KENALOG) 0.1 % cream Apply to affected area two times a day. calcium carbonate (CALCIUM 300 ORAL) Take by mouth. unknown dosage cholecalciferol (VITAMIN D3) 400 unit tab Take by mouth. multivitamin tablet Take by mouth. albuterol (PROVENTIL) 2.5 mg /3 mL (0.083 %) nebulizer solution Use 3 mL via nebulizer every 4 hours. sodium chloride 7% solution 7 % nebu Inhale 4 mL as instructed twice daily. levothyroxine (SYNTHROID) 100 mcg tablet Take 1 tablet by mouth daily before breakfast. Nebulizer and Compressor For Neb Bekah 1 Device as needed. Use as directed. Social History Tobacco Use Smoking status: Never Passive exposure: Never Smokeless tobacco: Never Vaping Use Vaping status: Never Used Substance Use Topics Alcohol use: Yes Comment: occasionally Drug use: No Family History Problem Relation Age of Onset Heart Mother Heart Father Cervical Cancer Sister Alzheimer's Disease Maternal Grandmother Cancer Maternal Grandmother unsure Heart Paternal Grandfather other (negative [Other]) Other negative for breast, ovary or endometrial PAST SURGICAL HISTORY Procedure Laterality Date APPENDECTOMY ARTHRP ACETBLR/PROX FEM PROSTC AGRFT/ALGRFT right hip DILATION & CURETTAGE DX&/THER NONOBSTETRIC Dilation & curettage LIG/TRNSXJ FLP TUBE ABDL/VAG APPR UNI/BI Tubal ligation MIDLINE INSERTION/CONSULT 08/22/2017 PAST SURGICAL HISTORY OF GI tube PAST SURGICAL HISTORY OF right vascular reconstruction PAST SURGICAL HISTORY OF tracheostomy PAST SURGICAL HISTORY OF removal of calcium deposits from right hand PAST SURGICAL HISTORY OF 2009 Hysterectomy Ovaries Intact PAST SURGICAL HISTORY OF 07/02/2024 RIGHT TOTAL SHOULDER ARTHROPLASTY, STANDARD VERSUS REVERSE VERSUS HEMIARTHROPLASTY (Right) I reviewed the past medical history, family history, social history and surgical history with changes noted above and updated in EMR. IMMUNIZATIONS Immunization History Administered Date(s) Administered influenza (IIV3) vaccine, age 6 mo - 64 yr, trivalent (AFLURIA, FLULAVAL, FLUVIRIN, FLUZONE) 04/19/2014 influenza (IIV3) vaccine, trivalent (AFLURIA, FLULAVAL, FLUVIRIN, FLUZONE) 02/20/2017 05/25/2021 influenza (IIV4) vaccine, age 6 mo - 64 yr, quadrivalent (AFLURIA, FLULAVAL, FLUZONE) 04/20/2023 influenza (IIV4) vaccine, age 6 mo - 64 yr, quadrivalent, PF (AFLURIA, FLUARIX, FLULAVAL, FLUZONE) 05/25/2021 influenza (LAIV) vaccine, nasal, unspecified formulation 03/06/2012 influenza vaccine, unspecified formulation 03/06/2012 pneumococcal (PCV7) vaccine, 7 valent (PREVNAR 7) 1965 pneumococcal conjugate (PCV13) vaccine, 13 valent (PREVNAR 13) 08/27/2019 pneumococcal conjugate (PCV20) vaccine, 20 valent (PREVNAR 20) 02/10/2024 tuberculin skin test, unspecified formulation 08/22/2019 08/29/2019 ROS: All other systems reviewed as negative except for what is noted in HPI and review of systems. PHYSICAL EXAMINATION: BP 110/60 (BP Site: Left Arm, BP Position: Sitting, BP Cuff Size: Regular Adult) Pulse (!) 58 Ht 158.8 cm (5' 2.5) Wt 42.6 kg (94 lb) LMP 04/12/2010 SpO2 94% BMI 16.92 kg/m Gen: No acute distress. Cooperative with examination. HEENT: Normocephalic. Sclera, conjunctiva clear. Poor dentition. No thrush. Resp: No stridor, accessory respiratory muscle use, supra-sternal or intercostal retractions. Bibasilar crackles, left > right. No wheezes. CV: Regular rythm. Heart tones normal. Radial pulses normal. Ext: Warm and well perfused. Chronic deformities bilateral hands and fingers. Skin: No rash, ecchymoses. Neuro: Mental status normal. Affect normal. No tremor. 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 Start of test and EOFE criteria met. patient was unable to open her mouth wide enough for mouthpiece. added corrugated tubing to white rubber lip seal. IMPRESSION: Spirometry indicates no obstruction. The reduced FVC could indicate restriction, recommend lung volumes for definitive determination. See RT notes above which may affect results. Electronically Signed On 05-17-2024 06:24:26 EST by Murphy Bills MD ID: [id number] Name: TENNILLE ORTIZ Race: White Ht: 60.63 in Wt: 90.00 lbs Age: 59 Gender: Female : 1965 Dx: Idiopathic interstitial pulmonary disease_ Smoking Hx: Non-smoker Doctor: MURPHY BILLS Test Date: 05/16/2024 Site: Tech: Evy Alves PRE-BRONCH POST-BRONCH Pre LLN Pred ULN %Pred Post %Pred %Chg SPIROMETRY FVC (L) 0.94 1.87 2.58 3.31 36 FEV1 (L) 0.79 1.49 2.08 2.64 37 FEV1/FVC 0.84 0.68 0.81 0.91 103 PEF L/s (L/sec) 1.90 4.23 5.77 7.30 32 FEF50 (L/sec) 1.11 1.45 3.06 4.67 36 FIF50 (L/sec) 1.97 FEF50/FIF50 0.56 90-100 FIVC (L) 0.90 QDH74-97 (L/sec) 0.93 1.07 2.09 3.47 44 Time (sec) 3.17 FET PEF (sec) 0.11 DARON (L) 0.03 Vol Extrap % (%) 4 Comments: Current ATS/ERS acceptability and repeatability standards for spirometry met. Start of test and EOFE criteria met. patient was unable to open her mouth wide enough for mouthpiece. added corrugated tubing to white rubber lip seal. Arterial blood gas: pH, Arterial Date Value Ref Range Status 02/11/2021 7.23 (L) 7.35 - 7.45 Final pCO2, Arterial Date Value Ref Range Status 02/11/2021 60 (H) 34 - 46 mm Hg Final pO2, Arterial Date Value Ref Range Status 02/11/2021 164 (H) 85 - 95 mm Hg Final Bicarbonate, Arterial Date Value Ref Range Status 02/11/2021 24 22 - 26 mmol/L Final Base Excess, Arterial Date Value Ref Range Status 02/11/2021 NEG 3 mmol/L Final Lactate Date Value Ref Range Status 02/12/2021 1.2 0.5 - 2.2 mmol/L Final CT Chest other findings: Last CT Chest - Impression Only CT CHEST WO IVCON Exam End: 11/29/2023 11:39 AM (Final result) Impression: IMPRESSION: 1. Again noted is pulmonary fibrosis which is most pronounced in bilateral posterior lower lobes. There has been a slight increase in prominence of cystic changes in the left lower lobe. Findings are most likely due to chronic aspiration. 2. No new thoracic lymphadenopathy ... Last XR Chest - Impression Only XR CHEST 1V FRONTAL PORT Exam End: 07/05/2024 12:28 PM (Final result) Impression: IMPRESSION: See result. ... ASSESSMENT/PLAN: 1. ILD (interstitial lung disease) ([facility]) - ICD9: 515, ICD10: J84.9 (primary diagnosis) Severe restriction on PFT. CT chest with pulmonary fibrosis in bilateral lower lobes with a slight increase in prominence of cystic changes in the left lower lobe. Findings are most consistent with chronic aspiration. Considered anti-fibrotic therapy, but most likely will not prevent the progression of disease with ongoing aspiration. Recommend swallow study and evaluation. However, patient declines. Discharged home from hospital following shoulder surgery on supplemental oxygen. 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 Systemic sclerosis with myopathy ([facility]) - ICD9: 710.1, 359.6, ICD10: M34.82 Follows with rheumatology. On low-dose prednisone. 3. Pulmonary aspiration of gastric contents, subsequent encounter - ICD9: V58.89, 934.9, ICD10: T17.818D See #1 4. Polymyositis (HCC) - ICD9: 710.4, ICD10: M33.20 See #2. Portions of this documentation were copied and pasted from previous office visit notes in order to provide a cohesive continuity of the history. The note has been reviewed and edited and updated as necessary. Valeria Pittman PA-C documented in this encounter [facility] 07-11-[address] [facility] 07-07-[address] [facility] 07-06-[address] [facility] 07-06-[address] [facility] 07-05-[address] [facility] 07-05-[address] [facility] 07-05-[address] [facility] 07-04-[address] [facility] 07-04-[address] [facility] 07-03-2024 Note HNO ID: [id number] Author: LOLIS MAKI RN Service: Nursing Author Type: Registered Nurse Type: Nursing Progress Note Filed: 07/03/2024 20:17 Note Text: 2017-Pt transferred to [facility] via bed. [facility] 07-03-[address] [facility] 07-03-[address] [facility] 07-03-[address] [facility] 07-02-[address] [facility] 07-02-[address] [facility] 06-20-2024 Telephone encounter Note I have reviewed her chart and my last office notes. From a pulmonary standpoint, patient is optimized. Recommend: Intra -OP: - Per Anesthesia, would recommend use of Short acting paralytics and NM blocking agents, reducing the time for general anesthesia, Spinal vs GA. Post OP - Early ambulation and physical therapy as tolerated post-operatively - Encourage aggressive incentive spirometry hourly as tolerated - Bronchodilators Scheduled Q 6 hrs and as needed for wheezing or shortness of breath Valeria Pittman PA-C [facility] Work Phone: 06-20-2024 Miscellaneous Notes I have reviewed her chart and my last office notes. From a pulmonary standpoint, patient is optimized. Recommend: Intra -OP: - Per Anesthesia, would recommend use of Short acting paralytics and NM blocking agents, reducing the time for general anesthesia, Spinal vs GA. Post OP - Early ambulation and physical therapy as tolerated post-operatively - Encourage aggressive incentive spirometry hourly as tolerated - Bronchodilators Scheduled Q 6 hrs and as needed for wheezing or shortness of breath Valeria Pittman PA-C Pt seen for PACC today and scheduled for a right shoulder replacement at 07/02/2024. Can you please provide pulmonary optimization for this patient and any pulmonary considerations anesthesia should take precaution with or be aware of? 05/16/2024 Valeria Pittman PA-C 1. ILD (interstitial lung disease) (HCC) - ICD9: 515, ICD10: J84.9 (primary diagnosis) Severe restriction on PFT, stable today. CT chest with pulmonary fibrosis in bilateral lower lobes with a slight increase in prominence of cystic changes in the left lower lobe. Findings are most consistent with chronic aspiration. Considered anti-fibrotic therapy, but most likely will not prevent the progression of disease with ongoing aspiration. Recommend swallow study and evaluation. However, patient is hesitant. 2. Systemic sclerosis with myopathy (HCC) - ICD9: 710.1, 359.6, ICD10: M34.82 Follows with rheumatology. On low-dose prednisone 3. Pulmonary aspiration of gastric contents, subsequent encounter - ICD9: V58.89, 934.9, ICD10: T17.818D See #1. Portions of this documentation were copied and pasted from previous office visit notes in order to provide a cohesive continuity of the history. The note has been reviewed and edited and updated as necessary. Valeria Pittman PA-C documented in this encounter [facility] 06-19-2024 History of Present illness Narrative Subjective Patient ID: Tennille Ortiz is a 59 y.o. female who presents for Allergic Reaction (PT is here today for 1 month FUV, reports she just started medication a couple weeks ago. Reports she also had a reaction a couple days ago, stopped Carbidopa-Levodopia which is what she had the reaction to, she restarted her ropinirole. ). Patient presents today for telephone follow-up. Previously been seen for restless leg syndrome. Her Requip at that time was not handling her symptoms and we started her on carbidopa/levodopa. She states that she developed nausea and headaches from this medication and discontinued it and restarted taking her Requip. She feels that it is handling her symptoms at this time. She would like her old prescription renewed. Restless leg syndrome: Carbidopa-levodopa ineffective, medication side effects. Will restart Requip at 1 mg twice daily. Basal cell carcinoma: Patient states that she was evaluated by dermatology (Dr. Malachi Buitrago). He did biopsy a single spot on her chest and it was found to be a basal cell carcinoma she will have a full removal on June 22. Shoulder injury: Patient is scheduled for shoulder repair July 02. Home health: Last visit she requested consult for home health care due to inability to perform ADLs. She is unable to identify a home health provider at this time that she would like to use. She is changing insurance after the first the year. And she will have home health on the site for rehab from her shoulder repair on 07/02. She states that she will call us after the first the year when her insurance is established and she is evaluated the home health care services [facility] provides to her and see if she wants to continue those. Allergic Reaction Pertinent negatives include no abdominal pain, chest pain, diarrhea or trouble swallowing. Virtual or Telephone Consent A telephone visit (audio only) between the patient (at the originating site) and the provider (at the distant site) was utilized to provide this telehealth service. Verbal consent was requested and obtained from Tennille Ortiz on this date, 06/19/24 for a telehealth visit. Review of Systems Constitutional: Negative for chills, diaphoresis, fatigue and unexpected weight change. HENT: Negative for dental problem, tinnitus and trouble swallowing. Eyes: Negative for visual disturbance. Respiratory: Negative for chest tightness and shortness of breath. Cardiovascular: Negative for chest pain, palpitations and leg swelling. Gastrointestinal: Negative for abdominal pain, constipation, diarrhea, nausea and rectal pain. Endocrine: Negative for polydipsia, polyphagia and polyuria. Genitourinary: Negative for difficulty urinating, frequency and urgency. Musculoskeletal: Negative for arthralgias and myalgias. Skin: Negative for pallor and wound. Neurological: Negative for syncope, weakness, numbness and headaches. Psychiatric/Behavioral: Negative for suicidal ideas. The patient is not nervous/anxious. Objective LMP (LMP Unknown) Physical Exam Neurological: General: No focal deficit present. Mental Status: She is oriented to person, place, and time. Mental status is at baseline. Psychiatric: Mood and Affect: Mood normal. Behavior: Behavior normal. Thought Content: Thought content normal. Judgment: Judgment normal. Assessment/Plan Diagnoses and all orders for this visit: Restless leg syndrome - rOPINIRole (Requip) 1 mg tablet; Take 1 tablet (1 mg) by mouth 2 times a day. documented in this encounter [facility] Work Phone: 06-18-2024 Telephone encounter Note Pt seen for PACC today and scheduled for a right shoulder replacement at 07/02/2024. Can you please provide pulmonary optimization for this patient and any pulmonary considerations anesthesia should take precaution with or be aware of? 05/16/2024 Valeria Pittman PA-C 1. ILD (interstitial lung disease) (HCC) - ICD9: 515, ICD10: J84.9 (primary diagnosis) Severe restriction on PFT, stable today. CT chest with pulmonary fibrosis in bilateral lower lobes with a slight increase in prominence of cystic changes in the left lower lobe. Findings are most consistent with chronic aspiration. Considered anti-fibrotic therapy, but most likely will not prevent the progression of disease with ongoing aspiration. Recommend swallow study and evaluation. However, patient is hesitant. 2. Systemic sclerosis with myopathy (HCC) - ICD9: 710.1, 359.6, ICD10: M34.82 Follows with rheumatology. On low-dose prednisone 3. Pulmonary aspiration of gastric contents, subsequent encounter - ICD9: V58.89, 934.9, ICD10: T17.818D See #1. Portions of this documentation were copied and pasted from previous office visit notes in order to provide a cohesive continuity of the history. The note has been reviewed and edited and updated as necessary. Valeria Pittman PA-C [facility] 06-18-2024 Instructions Jacqueline Peck APRN.RICH - 06/18/2024 9:23 AM EST Images from the original note were not included. [facility] PATIENT PREOPERATIVE INSTRUCTIONS No ref. provider found has scheduled you for your procedure at this surgery center: [facility] Scheduling Office: [phone] -[address] [place] [address]. Please read below carefully for your personalized instructions. Dietary Restrictions: - No solid food after midnight. - You may have 12 ounces of clear liquids (water, clear juices such as apple juice or gatorade, carbonated beverages, clear tea, black coffee, jello) until 2 hours before scheduled arrival at facility. Medications: Unless instructed differently below, stay on all of your medications until your surgery. If you start any new medications after today's visit, please contact your surgeon. Pre-Surgery Med Instructions Medication Instructions rOPINIRole (REQUIP) 1 mg tablet Take the day of surgery with a small sip of water predniSONE (DELTASONE) 1 mg tablet Take the day of surgery with a small sip of water tiZANidine (ZANAFLEX) 2 mg tablet IF needed rosuvastatin (CRESTOR) 20 mg tablet Take the day of surgery with a small sip of water PARoxetine (PAXIL) 10 mg tablet Take the day of surgery with a small sip of water triamcinolone acetonide (KENALOG) 0.1 % cream Do not take the day of surgery calcium carbonate (CALCIUM 300 ORAL) Stop 7 days before surgery cholecalciferol (VITAMIN D3) 400 unit tab Stop 7 days before surgery multivitamin tablet Stop 7 days before surgery sodium chloride 7% solution 7 % nebu Do not take the day of surgery Ibuprofen 200 mg cap Stop 7 days before surgery levothyroxine (SYNTHROID) 100 mcg tablet Take the day of surgery with a small sip of water Nebulizer and Compressor For Neb Bekah If you start any new medications after today's visit, please contact the surgeon's office. If you are currently using a xnpa-nmt-ozyk injectable or oral medication for diabetes or weight loss such as Dulaglutide (Trulicity), Exenatide (Byetta, Bydureon), Liraglutide (Victoza, Saxenda), Semaglutide (Ozempic, Wegovy, Rybelsus), or Tirzepatide (Mounjaro), the medicine should be stopped at least 7 days before surgery. These medicines can cause food to remain in your stomach for a very long time and increase the risks from surgery and anesthesia. Not stopping the medication for a long enough time may result in your surgery being rescheduled. Blood Thinning Medications: - Stop NSAIDS (Ibuprofen, Advil, Aleve, Motrin, Celebrex, Mobic, etc.) 7 days before surgery, as directed by your surgeon. - Stop Aspirin 7 days before surgery, as directed by your surgeon. - Stop ALL herbal and dietary supplements 7 days before surgery. - You may take Tylenol (Acetaminophen) or any of your pain medications that do not contain aspirin or NSAIDS as needed. Important Reminders: - Candy, mints, and tobacco products are NOT permitted the morning of surgery. - Hearing aids, dentures and glasses may be worn the morning of surgery. - NO jewelry, body piercings, makeup, hairpins or contacts are to be worn the day of surgery. If you develop symptoms such as a fever, cold, or flu, or have other changes to your health within TWO DAYS of scheduled surgery or the morning of surgery, please contact the surgery center above. Personal Belongings: -Please have photo ID and insurance cards. -If you do not have a copy of advance directives on file with us, please bring a copy with you on the day of surgery. - Leave ALL valuables and money at home or with family members. For Outpatient Procedures: - YOU MUST HAVE A RESPONSIBLE ORDER DISPATCHER TAKE YOU HOME. A BEER BREWER OR SHIPWRIGHT SUPERVISOR CANNOT BE MADE A RESPONSIBLE ORDER DISPATCHER. - We recommend that a responsible person stays with you overnight to take care of you. - You cannot stay in a hotel alone after outpatient surgery. You will not be permitted to have your surgery, if you do not have someone to take care of you. Arrival Time for Surgery: - To obtain your arrival time for surgery, call your physician's office the day before your surgery. - If your surgery is scheduled for Tuesday, call the Tuesday before. Your surgeon s planner/scheduler will tell you what time to call the office. - If you have not reached the departmental planner/scheduler by 5 P.M., call [phone] after 5 P.M. the day before your surgery. Please be aware that emergency situations arise, which may delay or change your surgical time. If this happens, we will notify you as soon as possible and regret any inconvenience. If you already have an Advance Directive, please fax a copy to [phone] or email to for it to be added to your chart. If you do not have an Advance Directive, you can find the appropriate form and more information at [email or web address]. We recommend that you complete the Advance Directive form found on the website and bring it with you the day of your surgery. It can be witnessed and scanned into your chart that day. Jacqueline Peck APRN.RICH documented in this encounter [facility] 06-18-2024 History and physical note Images from the original note were not included. [facility] HISTORY AND PHYSICAL EXAMINATION SERVICE DATE: 06/18/2024 SERVICE TIME: 12:02 PM PRIMARY CARE PHYSICIAN: Evan De MD Assessment Patient has the following medical conditions which may affect sharon-operative course: Systemic sclerosis; CREST Assessment: following rheumatology and pulmonary, daily Prednisone, systemic, hands are contracted, limited CROM, very small mouth opening. Chart sent to anesthesia for review. 05/16/2024 Spirometry IMPRESSION: Spirometry indicates no obstruction. The reduced FVC could indicate restriction, recommend lung volumes for definitive determination. See RT notes above which may affect results. Electronically Signed On 05-17-2024 06:24:26 EST by Murphy Bills MD Restrictive lung disease, Severe, Acute Productive Cough Assessment: following pulmonary, rx as needed, pulmonary recently recommended swallowing study 2/2 chronic aspiration per recent chest CT, pt hesitant to do so per below documentation. Chart sent to anesthesia for review. 05/16/2024 Valeria Pittman PA-C, F Pulmonary ASSESSMENT/PLAN: 1. ILD (interstitial lung disease) ([facility]) - ICD9: 515, ICD10: J84.9 (primary diagnosis) Severe restriction on PFT, stable today. CT chest with pulmonary fibrosis in bilateral lower lobes with a slight increase in prominence of cystic changes in the left lower lobe. Findings are most consistent with chronic aspiration. Considered anti-fibrotic therapy, but most likely will not prevent the progression of disease with ongoing aspiration. Recommend swallow study and evaluation. However, patient is hesitant. 2. Systemic sclerosis with myopathy (HCC) - ICD9: 710.1, 359.6, ICD10: M34.82 Follows with rheumatology. On low-dose prednisone 3. Pulmonary aspiration of gastric contents, subsequent encounter - ICD9: V58.89, 934.9, ICD10: T17.818D See #1. Valeria Pittman PA-C Sleep apnea Assessment: mild per 2010 PSG, pt denies dx or CPAP use Protein-calorie malnutrition (HCC) Assessment: Body mass index is 16.92 kg/m . Pt states 2/2 small mouth opening, she states she is eating and drinking per her normal Hypothyroidism Assessment: stable on rx, last TSH 2.77 06/06/2023 in C/E Age-related osteoporosis without current pathological fracture Assessment: Fracture history: vertebral fracture, R tibial plateau fracture and L shoulder. H/o Reclast once in 2016 then lost to follow-up. Evenity for 1 year in [id number] followed by 1 month of Reclast in January 2024, following rheumatology Polymyositis ([facility]) Assessment: general weakness is her normal baseline per pt and daughter, daily Prednisone. Myositis diagnosis in 1988; last flare 1998 per epic Ischemia of digits of hand Assessment: s/p Alprostadil infusion 2017, no open ulcerations/scabs noted on today's exam Depression Assessment: stable on rx per pt, denies SI/HI, 2/2 chronic medical conditions Occipital neuralgia of right side Assessment: receiving injections, following pain management Acquired fusion of cervical spine Assessment: -DECREASED CROM-Cervical Spine SPECT revealed significant tracer uptake in the bilateral superior facet joints of C1. Patient was informed that her C1 facet disease will likely lead to autofusion Restless leg syndrome Assessment: controlled on rx Palpitations Assessment: no current complaints or symptoms, dx dates back to 2012 when pt had a cardiac work up Raynaud's syndrome Assessment: hx ischemia digits 2/2 scleroderma Urine, incontinence, stress female Assessment: hx, no current tx Muscular deconditioning Assessment: chronic Dysphagia Assessment: as noted above she has chronic aspiration, pulmonary recommended Curran Activity Status Index: METS: Walk indoors, such as around the house (1.75 METs) Do light work around the house, such as dusting or washing dishes (2.70 METs) Take care of self; that is eating, dressing, bathing, using the toilet (2.75 METs) Walk a block or two on level ground (2.75 METs) DASI Score: 9.95 Patient denies any chest pain or undue shortness of breath with the above physical activity. Clinical Frailty Scale: 3. Well, with treated comorbid disease STOP-Bang Score: Patient over 50 years old Denies snoring loudly Denies feeling tired, fatigued, or sleepy during the daytime Has not been observed to stop breathing or choking/gasping during sleep Denies having high blood pressure BMI less than or equal to 35 kg/m^2 Does not have a large neck Non-male patient STOP-Bang Score: 1 [id number] Score: Age: <65 Sex: female CHF history: No Hypertension history: No Stroke/TIA/thromboembolism history: No Vascular disease history: Yes Diabetes history: No [id number] Score: 2 ARISCAT Score: Age: 51-80 Preoperative SpO2: >=96% Respiratory infection in the last month: No Preoperative anemia: No Surgical incision: peripheral Duration of surgery: >3 hrs Emergency procedure: No ARISCAT Score: 26 ANESTHESIA FINDINGS: Intubation History: No history of difficult intubation Significant Anesthesia Considerations: potential slow emergence Airway History: No history of difficult airway Acquired pathologic states that can distort airway or airway management: scleroderma (Pt states mouth opening smaller than the last time she was intubated 2020 at [facility], records requested) I - PHYSICAL EVALUATION AIRWAY Patient intubated: No. Tracheostomy tube not present Mallampati: unable to assess. TM distance: >3 FB. Neck ROM: limited flexion and extension. Short neck: no. Additional comments: Very limited mouth opening 2/2 scleroderma. Thick neck: no Wright present: no Lip Bite Test: II Microretrognathia/Micronagthia/Re cessed Chin: No DENTAL Dental findings: teeth intact. II - ANESTHESIA PLAN Anesthetic Plan: other Beta Lui Monitoring Plan Post Procedure Analgesic Plan Prepared for Surgery: optimally prepared for surgery, pending [see comment]. Labs and EKG Chart sent to anesthesia for FYI/review of potential airway difficulty CONSULTS: The following consults have been initiated at this time: anesthesia. Planned Anesthetic: other anesthesia choice The Following Tests/Procedures Have Been Initiated: Orders Placed This Encounter rOPINIRole (REQUIP) 1 mg tablet Sig: Take 1 mg by mouth two times a day. mupirocin (BACTROBAN) 2 % ointment Sig: Apply 0.5 inch with cotton swab (Q-tip) to each nostril in the morning and evening for 5 days prior to and including day of surgery. Dispense: 22 g Refill: 0 ECG COMPLETE Standing Status: Future Number of Occurrences: 1 Standing Expiration Date: 06/18/2025 REASON FOR VISIT: Tennille Ortiz is a 59 year old female who is scheduled for Procedure(s): RIGHT TOTAL SHOULDER ARTHROPLASTY, STANDARD VERSUS REVERSE VERSUS HEMIARTHROPLASTY (Right) at the request of Dr. Heri Pappas for consultation. My final recommendation will be communicated back to the requesting physician by way of shared medical record or letter. Subjective The patient has the following: COVID-19 Immunization Status Overdue - Covid-19 Vaccine ( season) Never done No completion, postpone, frequency change, or communication history exists for this topic. CHIEF COMPLAINT: Pre-op exam HPI: Tennille Ortiz is a 59 year old seen for PAC due to scheduled above surgery because of Glenohumeral arthritis, right 03/29/2024, Dr. Matute HISTORY OF PRESENT ILLNESS: Tennille presents today for initial evaluation regarding chronic right shoulder complaints. As you know she is a 59-year-old [id number] female with complaints in her right shoulder over the last year. She denies a specific trauma or injury before the onset of her symptoms. She notes difficulty with reach activities, lifting activities, overhead activities, and symptoms at night. Treatment to date has consisted of 2 different cortisone injections which have provided relief, but she has had a return of symptoms. She has also been taking oral anti-inflammatories. She presents for further discussion on management. Past medical history is notable for systemic scleroderma, polymyositis, interstitial lung disease, and osteoporosis. She is on 4 mg of prednisone daily for her inflammatory disorders. She is also currently undergoing injections for her osteoporosis. PROGRESSIVE SYMPTOMS: Pain affecting living situation/ADL's Pain impacting sleep or causing fatigue Pain limiting ability to stay fit and healthy, sports or recreational activity Pain worsened by overhead activity/reaching PREVIOUS TREATMENT(S): Modified Activity OTC NSAIDS for Greater Than 3 Months Steroid Injections Right Shoulder NECK COMPLAINTS: None REVIEW OF SYSTEMS: General: No weight loss, malaise or fevers. Neurological: +RLS, on rx. No history of TIA's, stroke, [employer] tumor, impaired sensorium, hemiplegia, paraplegia or quadraplegia. No neurological symptoms or problems. Respiratory: +ILD, restrictive lung disease, following pulmonary Positive for: asthma (rx as needed). Negative for: COPD, current cough, dyspnea, pneumonia within 6 weeks, tobacco use, URI < 2 weeks and obstructive sleep apnea. Cardiovascular: Positive for: hyperlipidemia (on rx) and murmur/valvular heart disease Negative for: abdominal aortic aneurysm, AICD/PPM, angina, anticoagulation therapy, arrhythmia, atrial fibrillation, CAD, chest pain, CHF, congenital heart defect, DVT/PE, hypertension, recent MA, PTCA, PVD, open heart surgery and valve surgery. GI: Positive for: dysphagia Negative for: abdominal pain, esophageal stricture, GERD, hepatitis, irritable bowel syndrome, inflammatory bowel disease, liver disease, nausea, pancreatitis, vomiting and ETOH >2 drinks/day. : Positive for: urinary incontinence (NOR[place]ERT). Negative for: nephrolithiasis, renal failure and urinary tract infection. MEDICAL OFFICE ADMINISTRATOR: Negative for abnormal vaginal bleeding, abnormal vaginal discharge. Endocrine: +hypoglycemia Positive for: hypothyroidism. Negative for: diabetes mellitus. Hematology: No history of bleeding or clotting disorder. Patient is not taking anti-coagulation or platelet medications. No history of hematological symptoms or problems. Oncology: No history of CA metastasis, chemo within 30 days, or radiotherapy within 90 days. No history of oncological symptoms or problems. Psych: Positive for: anxiety and depression. Negative for: Marijuana Use. Musculoskeletal: See HPI. +cervical neck injections +right JIM and TKA +osteoporosis, hx Evenity, Reclast Positive for: rheumatoid arthritis. Patient is using prednisone for RA. Skin: +scleroderma +left chest skin lesion, pending excision 06/22/2024 Implanted Devices: No implanted devices. 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 Vitamin D deficiency PAST SURGICAL HISTORY Procedure Laterality Date APPENDECTOMY ARTHRP ACETBLR/PROX FEM PROSTC AGRFT/ALGRFT right hip DILATION & CURETTAGE DX&/THER NONOBSTETRIC Dilation & curettage LIG/TRNSXJ FLP TUBE ABDL/VAG APPR UNI/BI Tubal ligation MIDLINE INSERTION/CONSULT 08/22/2017 PAST SURGICAL HISTORY OF GI tube PAST SURGICAL HISTORY OF right vascular reconstruction PAST SURGICAL HISTORY OF tracheostomy PAST SURGICAL HISTORY OF removal of calcium deposits from right hand PAST SURGICAL HISTORY OF 2009 Hysterectomy Ovaries Intact FAMILY HISTORY Problem Relation Age of Onset Heart Mother Heart Father Cervical Cancer Sister Alzheimer's Disease Maternal Grandmother Cancer Maternal Grandmother unsure Heart Paternal Grandfather other (negative [Other]) Other negative for breast, ovary or endometrial Social History Tobacco Use Smoking status: Never Smokeless tobacco: Never Vaping Use Vaping status: Never Used Substance Use Topics Alcohol use: Yes Comment: occasionally Drug use: No Prior to Admission medications as of 06/18/24 0943 Medication Sig Last Dose Taking rOPINIRole (REQUIP) 1 mg tablet Take 1 mg by mouth two times a day. Taking Yes predniSONE (DELTASONE) 1 mg tablet Take 4 tablets by mouth once daily. Taking Yes tiZANidine (ZANAFLEX) 2 mg tablet Take 2 mg by mouth every 8 hours as needed. Taking Yes rosuvastatin (CRESTOR) 20 mg tablet Take 1 tablet by mouth once daily. Taking Yes PARoxetine (PAXIL) 10 mg tablet Take 10 mg by mouth once daily. Taking Yes triamcinolone acetonide (KENALOG) 0.1 % cream Apply to affected area two times a day. Taking Yes calcium carbonate (CALCIUM 300 ORAL) Take by mouth. unknown dosage Taking Yes cholecalciferol (VITAMIN D3) 400 unit tab Take by mouth. Taking Yes multivitamin tablet Take by mouth. Taking Yes sodium chloride 7% solution 7 % nebu Inhale 4 mL as instructed twice daily. Taking Yes Ibuprofen 200 mg cap Take 800 mg by mouth three times daily. Taking Yes levothyroxine (SYNTHROID) 100 mcg tablet Take 1 tablet by mouth daily before breakfast. Taking Yes Nebulizer and Compressor For Neb Bekah 1 Device as needed. Use as directed. Taking Yes mupirocin (BACTROBAN) 2 % ointment Apply 0.5 inch with cotton swab (Q-tip) to each nostril in the morning and evening for 5 days prior to and including day of surgery. albuterol (PROVENTIL) 2.5 mg /3 mL (0.083 %) nebulizer solution Use 3 mL via nebulizer every 4 hours. Medication Comments documented by Nathaly Lindsay on 06/13/2015 at 0918. Pt states all medications are current ALLERGIES Allergen Reactions Fortaz [Ceftazidime] Hives Hives, itching, peeling, Aspirin capillaries break Betadine [Povidone-* Itching Carbidopa-Levodopa GI Upset Nausea, dry heaves, Headache Clindamycin Other: See Comments Skin peel, red rash, weight gain, swelling in the face and legs. Itchy. Doxycycline Shortness of Breath, Myalgia Erythromycin Base diarrhea Penicillins Hives Tolerated zosyn 02/09 Objective PHYSICAL EXAM: General: alert and oriented (x3) and healthy appearance. Pertinent negatives noted - not distressed. Skin: normal color, no rash or lesions. HEENT: EOM intact and pupils equal round. Pertinent negatives noted - no carotid bruit. Cardiovascular: Pulse characterized as regular.Positive for murmur. Pertinent negatives noted - no rub and no gallop. Respiratory: normal breath sounds, no wheezes or crackles. No chest wall deformity or tenderness. Abdomen: soft. Pertinent negatives noted - not tender. Extremities: no deformity, no edema or tenderness, no joint swelling or clubbing. Neurological: normal cognition and motor skills. Gait normal. No weakness or sensory deficit. PAIN ASSESSMENT: Pain Pain Level: 8 Pain Location: Shoulder-Right Description: Radiating Duration Units: Years Frequency: Continuous Intervention/Comfort measure: Medication VITALS: BP 88/58 Pulse 61 Temp (Src) 98.6 (Temporal) Resp 14 Ht 5' 2.5 (1.59m) Wt 94 lb (42.6kg) SpO2 100% LMP 04/12/2010 BMI 16.91 kg/(m^2). Diagnostic tests reviewed for today's visit: Lab Value Units Date High Low HB 12.4 g/dL 06/18/2024 15.5 11.5 HCT 41.1 % 06/18/2024 46.0 36.0 WBC 6.51 k/uL 06/18/2024 11.00 3.70 PLT 213 k/uL 06/18/2024 400 150 NA 139 mmol/L 06/18/2024 144 136 K 3.9 mmol/L 06/18/2024 5.1 3.7 GLUC 104 mg/dL 06/18/2024 99 74 BUN 19 mg/dL 06/18/2024 21 7 CREAT 0.37 mg/dL 06/18/2024 0.96 0.58 PTSEC No results within date range. INR No results within date range. APTT No results within date range. ALT 11 U/L 04/18/2024 38 7 AST 15 U/L 04/18/2024 35 13 TBILI 0.3 mg/dL 04/18/2024 1.3 0.2 TSH No results within date range. Lab Value Units Date High Low HCGQT No results within date range. UHCG No results within date range. HCG, BODY* No results within date range. Lab Value Units Date High Low ABORHD No results within date range. ABSCREEN No results within date range. No results found for: HBA1C Recent Results (from the past 8760 hour(s)) ECG COMPLETE Collection Time: 06/18/24 10:37 AM Result Value Ventricular Rate 56 Atrial Rate 56 P-R Interval 128 QRS Duration 80 QT Interval 410 QTC Calculation (Bazett) 395 Calculated P [place] 48 Calculated R [place] 23 Calculated T [place] 29 Impression SINUS BRADYCARDIA NONSPECIFIC T WAVE ABNORMALITY ABNORMAL ECG Recent Results (from the past 35277 hour(s)) ECHO Collection Time: 05/25/23 11:58 AM Impression CONCLUSIONS: - Exam indication: Shortness of Breath - The left ventricle is normal in size. Left ventricular systolic function is normal. EF = 63 5% (2D biplane) - The right ventricle is normal in size. Right ventricular systolic function is normal. - Estimated right ventricular systolic pressure is likely underestimated due to a weak or incomplete tricuspid regurgitation signal and is, at least, 29 mmHg consistent with normal pulmonary artery pressures. Estimated right atrial pressure is 3 mmHg based on IVC assessment. - There are no significant valvular abnormalities. - Exam was compared with the prior echocardiographic exam performed on 02/09/2021. There has been interval improvement in RVSP. * * * Final * * * Instructions Given to Patient: Instructions located in the after visit summary. Patient given verbal and written preop instructions and voices comprehension and compliance. SIGNATURE: Jacqueline Peck APRN.CNP PATIENT NAME: Tennille Ortiz DATE: June 18, 2024 TIME: 9:21 AM PAGER/CONTACT #: [facility] 06-18-2024 History and physical note Images from the original note were not included. [facility] HISTORY AND PHYSICAL EXAMINATION SERVICE DATE: 06/18/2024 SERVICE TIME: 12:02 PM PRIMARY CARE PHYSICIAN: Evan De MD Assessment Patient has the following medical conditions which may affect sharon-operative course: Systemic sclerosis; CREST Assessment: following rheumatology and pulmonary, daily Prednisone, systemic, hands are contracted, limited CROM, very small mouth opening. Chart sent to anesthesia for review. 05/16/2024 Spirometry IMPRESSION: Spirometry indicates no obstruction. The reduced FVC could indicate restriction, recommend lung volumes for definitive determination. See RT notes above which may affect results. Electronically Signed On 05-17-2024 06:24:26 EST by Murphy Bills MD Restrictive lung disease, Severe, Acute Productive Cough Assessment: following pulmonary, rx as needed, pulmonary recently recommended swallowing study 2/2 chronic aspiration per recent chest CT, pt hesitant to do so per below documentation. Chart sent to anesthesia for review. 05/16/2024 Valeria Pittman PA-C, [facility] Pulmonary ASSESSMENT/PLAN: 1. ILD (interstitial lung disease) (HCC) - ICD9: 515, ICD10: J84.9 (primary diagnosis) Severe restriction on PFT, stable today. CT chest with pulmonary fibrosis in bilateral lower lobes with a slight increase in prominence of cystic changes in the left lower lobe. Findings are most consistent with chronic aspiration. Considered anti-fibrotic therapy, but most likely will not prevent the progression of disease with ongoing aspiration. Recommend swallow study and evaluation. However, patient is hesitant. 2. Systemic sclerosis with myopathy (HCC) - ICD9: 710.1, 359.6, ICD10: M34.82 Follows with rheumatology. On low-dose prednisone 3. Pulmonary aspiration of gastric contents, subsequent encounter - ICD9: V58.89, 934.9, ICD10: T17.818D See #1. Valeria Pittman PA-C Sleep apnea Assessment: mild per 2010 PSG, pt denies dx or CPAP use Protein-calorie malnutrition (HCC) Assessment: Body mass index is 16.92 kg/m . Pt states 2/2 small mouth opening, she states she is eating and drinking per her normal Hypothyroidism Assessment: stable on rx, last TSH 2.77 06/06/2023 in C/E Age-related osteoporosis without current pathological fracture Assessment: Fracture history: vertebral fracture, R tibial plateau fracture and L shoulder. H/o Reclast once in 2016 then lost to follow-up. Evenity for 1 year in [id number] followed by 1 month of Reclast in January 2024, following rheumatology Polymyositis ([facility]) Assessment: general weakness is her normal baseline per pt and daughter, daily Prednisone. Myositis diagnosis in 1988; last flare 1998 per epic Ischemia of digits of hand Assessment: s/p Alprostadil infusion 2017, no open ulcerations/scabs noted on today's exam Depression Assessment: stable on rx per pt, denies SI/HI, 2/2 chronic medical conditions Occipital neuralgia of right side Assessment: receiving injections, following pain management Acquired fusion of cervical spine Assessment: -DECREASED CROM-Cervical Spine SPECT revealed significant tracer uptake in the bilateral superior facet joints of C1. Patient was informed that her C1 facet disease will likely lead to autofusion Restless leg syndrome Assessment: controlled on rx Palpitations Assessment: no current complaints or symptoms, dx dates back to 2012 when pt had a cardiac work up Raynaud's syndrome Assessment: hx ischemia digits 2/2 scleroderma Urine, incontinence, stress female Assessment: hx, no current tx Muscular deconditioning Assessment: chronic Dysphagia Assessment: as noted above she has chronic aspiration, pulmonary recommended Curran Activity Status Index: METS: Walk indoors, such as around the house (1.75 METs) Do light work around the house, such as dusting or washing dishes (2.70 METs) Take care of self; that is eating, dressing, bathing, using the toilet (2.75 METs) Walk a block or two on level ground (2.75 METs) DASI Score: 9.95 Patient denies any chest pain or undue shortness of breath with the above physical activity. Clinical Frailty Scale: 3. Well, with treated comorbid disease STOP-Bang Score: Patient over 50 years old Denies snoring loudly Denies feeling tired, fatigued, or sleepy during the daytime Has not been observed to stop breathing or choking/gasping during sleep Denies having high blood pressure BMI less than or equal to 35 kg/m^2 Does not have a large neck Non-male patient STOP-Bang Score: 1 [id number] Score: Age: <65 Sex: female CHF history: No Hypertension history: No Stroke/TIA/thromboembolism history: No Vascular disease history: Yes Diabetes history: No [id number] Score: 2 ARISCAT Score: Age: 51-80 Preoperative SpO2: >=96% Respiratory infection in the last month: No Preoperative anemia: No Surgical incision: peripheral Duration of surgery: >3 hrs Emergency procedure: No ARISCAT Score: 26 ANESTHESIA FINDINGS: Intubation History: No history of difficult intubation Significant Anesthesia Considerations: potential slow emergence Airway History: No history of difficult airway Acquired pathologic states that can distort airway or airway management: scleroderma (Pt states mouth opening smaller than the last time she was intubated 2020 at [facility], records requested) I - PHYSICAL EVALUATION AIRWAY Patient intubated: No. Tracheostomy tube not present Mallampati: unable to assess. TM distance: >3 FB. Neck ROM: limited flexion and extension. Short neck: no. Additional comments: Very limited mouth opening 2/2 scleroderma. Thick neck: no Wright present: no Lip Bite Test: II Microretrognathia/Micronagthia/Re cessed Chin: No DENTAL Dental findings: teeth intact. II - ANESTHESIA PLAN Anesthetic Plan: other Beta Lui Monitoring Plan Post Procedure Analgesic Plan Prepared for Surgery: optimally prepared for surgery, pending [see comment]. Labs and EKG Chart sent to anesthesia for FYI/review of potential airway difficulty CONSULTS: The following consults have been initiated at this time: anesthesia. Planned Anesthetic: other anesthesia choice The Following Tests/Procedures Have Been Initiated: Orders Placed This Encounter rOPINIRole (REQUIP) 1 mg tablet Sig: Take 1 mg by mouth two times a day. mupirocin (BACTROBAN) 2 % ointment Sig: Apply 0.5 inch with cotton swab (Q-tip) to each nostril in the morning and evening for 5 days prior to and including day of surgery. Dispense: 22 g Refill: 0 ECG COMPLETE Standing Status: Future Number of Occurrences: 1 Standing Expiration Date: 06/18/2025 REASON FOR VISIT: Tennille Ortiz is a 59 year old female who is scheduled for Procedure(s): RIGHT TOTAL SHOULDER ARTHROPLASTY, STANDARD VERSUS REVERSE VERSUS HEMIARTHROPLASTY (Right) at the request of Dr. Heri Pappas for consultation. My final recommendation will be communicated back to the requesting physician by way of shared medical record or letter. Subjective The patient has the following: COVID-19 Immunization Status Overdue - Covid-19 Vaccine (2023- season) Never done No completion, postpone, frequency change, or communication history exists for this topic. CHIEF COMPLAINT: Pre-op exam HPI: Tennille Ortiz is a 59 year old seen for PAC due to scheduled above surgery because of Glenohumeral arthritis, right 03/29/2024, Dr. Matute HISTORY OF PRESENT ILLNESS: Tennille presents today for initial evaluation regarding chronic right shoulder complaints. As you know she is a 59-year-old [id number] female with complaints in her right shoulder over the last year. She denies a specific trauma or injury before the onset of her symptoms. She notes difficulty with reach activities, lifting activities, overhead activities, and symptoms at night. Treatment to date has consisted of 2 different cortisone injections which have provided relief, but she has had a return of symptoms. She has also been taking oral anti-inflammatories. She presents for further discussion on management. Past medical history is notable for systemic scleroderma, polymyositis, interstitial lung disease, and osteoporosis. She is on 4 mg of prednisone daily for her inflammatory disorders. She is also currently undergoing injections for her osteoporosis. PROGRESSIVE SYMPTOMS: Pain affecting living situation/ADL's Pain impacting sleep or causing fatigue Pain limiting ability to stay fit and healthy, sports or recreational activity Pain worsened by overhead activity/reaching PREVIOUS TREATMENT(S): Modified Activity OTC NSAIDS for Greater Than 3 Months Steroid Injections Right Shoulder NECK COMPLAINTS: None REVIEW OF SYSTEMS: General: No weight loss, malaise or fevers. Neurological: +RLS, on rx. No history of TIA's, stroke, [employer] tumor, impaired sensorium, hemiplegia, paraplegia or quadraplegia. No neurological symptoms or problems. Respiratory: +ILD, restrictive lung disease, following pulmonary Positive for: asthma (rx as needed). Negative for: COPD, current cough, dyspnea, pneumonia within 6 weeks, tobacco use, URI < 2 weeks and obstructive sleep apnea. Cardiovascular: Positive for: hyperlipidemia (on rx) and murmur/valvular heart disease Negative for: abdominal aortic aneurysm, AICD/PPM, angina, anticoagulation therapy, arrhythmia, atrial fibrillation, CAD, chest pain, CHF, congenital heart defect, DVT/PE, hypertension, recent MA, PTCA, PVD, open heart surgery and valve surgery. GI: Positive for: dysphagia Negative for: abdominal pain, esophageal stricture, GERD, hepatitis, irritable bowel syndrome, inflammatory bowel disease, liver disease, nausea, pancreatitis, vomiting and ETOH >2 drinks/day. : Positive for: urinary incontinence (NORBERT). Negative for: nephrolithiasis, renal failure and urinary tract infection. MEDICAL OFFICE ADMINISTRATOR: Negative for abnormal vaginal bleeding, abnormal vaginal discharge. Endocrine: +hypoglycemia Positive for: hypothyroidism. Negative for: diabetes mellitus. Hematology: No history of bleeding or clotting disorder. Patient is not taking anti-coagulation or platelet medications. No history of hematological symptoms or problems. Oncology: No history of CA metastasis, chemo within 30 days, or radiotherapy within 90 days. No history of oncological symptoms or problems. Psych: Positive for: anxiety and depression. Negative for: Marijuana Use. Musculoskeletal: See HPI. +cervical neck injections +right JIM and TKA +osteoporosis, hx Evenity, Reclast Positive for: rheumatoid arthritis. Patient is using prednisone for RA. Skin: +scleroderma +left chest skin lesion, pending excision 06/22/2024 Implanted Devices: No implanted devices. 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 Vitamin D deficiency PAST SURGICAL HISTORY Procedure Laterality Date APPENDECTOMY ARTHRP ACETBLR/PROX FEM PROSTC AGRFT/ALGRFT right hip DILATION & CURETTAGE DX&/THER NONOBSTETRIC Dilation & curettage LIG/TRNSXJ FLP TUBE ABDL/VAG APPR UNI/BI Tubal ligation MIDLINE INSERTION/CONSULT 08/22/2017 PAST SURGICAL HISTORY OF GI tube PAST SURGICAL HISTORY OF right vascular reconstruction PAST SURGICAL HISTORY OF tracheostomy PAST SURGICAL HISTORY OF removal of calcium deposits from right hand PAST SURGICAL HISTORY OF 2009 Hysterectomy Ovaries Intact FAMILY HISTORY Problem Relation Age of Onset Heart Mother Heart Father Cervical Cancer Sister Alzheimer's Disease Maternal Grandmother Cancer Maternal Grandmother unsure Heart Paternal Grandfather other (negative [Other]) Other negative for breast, ovary or endometrial Social History Tobacco Use Smoking status: Never Smokeless tobacco: Never Vaping Use Vaping status: Never Used Substance Use Topics Alcohol use: Yes Comment: occasionally Drug use: No Prior to Admission medications as of 06/18/24 0943 Medication Sig Last Dose Taking rOPINIRole (REQUIP) 1 mg tablet Take 1 mg by mouth two times a day. Taking Yes predniSONE (DELTASONE) 1 mg tablet Take 4 tablets by mouth once daily. Taking Yes tiZANidine (ZANAFLEX) 2 mg tablet Take 2 mg by mouth every 8 hours as needed. Taking Yes rosuvastatin (CRESTOR) 20 mg tablet Take 1 tablet by mouth once daily. Taking Yes PARoxetine (PAXIL) 10 mg tablet Take 10 mg by mouth once daily. Taking Yes triamcinolone acetonide (KENALOG) 0.1 % cream Apply to affected area two times a day. Taking Yes calcium carbonate (CALCIUM 300 ORAL) Take by mouth. unknown dosage Taking Yes cholecalciferol (VITAMIN D3) 400 unit tab Take by mouth. Taking Yes multivitamin tablet Take by mouth. Taking Yes sodium chloride 7% solution 7 % nebu Inhale 4 mL as instructed twice daily. Taking Yes Ibuprofen 200 mg cap Take 800 mg by mouth three times daily. Taking Yes levothyroxine (SYNTHROID) 100 mcg tablet Take 1 tablet by mouth daily before breakfast. Taking Yes Nebulizer and Compressor For Neb Bekah 1 Device as needed. Use as directed. Taking Yes mupirocin (BACTROBAN) 2 % ointment Apply 0.5 inch with cotton swab (Q-tip) to each nostril in the morning and evening for 5 days prior to and including day of surgery. albuterol (PROVENTIL) 2.5 mg /3 mL (0.083 %) nebulizer solution Use 3 mL via nebulizer every 4 hours. Medication Comments documented by Nathaly Lindsay on 06/13/2015 at 0918. Pt states all medications are current ALLERGIES Allergen Reactions Fortaz [Ceftazidime] Hives Hives, itching, peeling, Aspirin capillaries break Betadine [Povidone-* Itching Carbidopa-Levodopa GI Upset Nausea, dry heaves, Headache Clindamycin Other: See Comments Skin peel, red rash, weight gain, swelling in the face and legs. Itchy. Doxycycline Shortness of Breath, Myalgia Erythromycin Base diarrhea Penicillins Hives Tolerated zosyn 02/09 Objective PHYSICAL EXAM: General: alert and oriented (x3) and healthy appearance. Pertinent negatives noted - not distressed. Skin: normal color, no rash or lesions. HEENT: EOM intact and pupils equal round. Pertinent negatives noted - no carotid bruit. Cardiovascular: Pulse characterized as regular.Positive for murmur. Pertinent negatives noted - no rub and no gallop. Respiratory: normal breath sounds, no wheezes or crackles. No chest wall deformity or tenderness. Abdomen: soft. Pertinent negatives noted - not tender. Extremities: no deformity, no edema or tenderness, no joint swelling or clubbing. Neurological: normal cognition and motor skills. Gait normal. No weakness or sensory deficit. PAIN ASSESSMENT: Pain Pain Level: 8 Pain Location: Shoulder-Right Description: Radiating Duration Units: Years Frequency: Continuous Intervention/Comfort measure: Medication VITALS: BP 88/58 Pulse 61 Temp (Src) 98.6 (Temporal) Resp 14 Ht 5' 2.5 (1.59m) Wt 94 lb (42.6kg) SpO2 100% LMP 04/12/2010 BMI 16.91 kg/(m^2). Diagnostic tests reviewed for today's visit: Lab Value Units Date High Low HB 12.4 g/dL 06/18/2024 15.5 11.5 HCT 41.1 % 06/18/2024 46.0 36.0 WBC 6.51 k/uL 06/18/2024 11.00 3.70 PLT 213 k/uL 06/18/2024 400 150 NA 139 mmol/L 06/18/2024 144 136 K 3.9 mmol/L 06/18/2024 5.1 3.7 GLUC 104 mg/dL 06/18/2024 99 74 BUN 19 mg/dL 06/18/2024 21 7 CREAT 0.37 mg/dL 06/18/2024 0.96 0.58 PTSEC No results within date range. INR No results within date range. APTT No results within date range. ALT 11 U/L 04/18/2024 38 7 AST 15 U/L 04/18/2024 35 13 TBILI 0.3 mg/dL 04/18/2024 1.3 0.2 TSH No results within date range. Lab Value Units Date High Low HCGQT No results within date range. UHCG No results within date range. HCG, BODY* No results within date range. Lab Value Units Date High Low ABORHD No results within date range. ABSCREEN No results within date range. No results found for: HBA1C Recent Results (from the past 8760 hour(s)) ECG COMPLETE Collection Time: 06/18/24 10:37 AM Result Value Ventricular Rate 56 Atrial Rate 56 P-R Interval 128 QRS Duration 80 QT Interval 410 QTC Calculation (Bazett) 395 Calculated P [place] 48 Calculated R [place] 23 Calculated T [place] 29 Impression SINUS BRADYCARDIA NONSPECIFIC T WAVE ABNORMALITY ABNORMAL ECG Recent Results (from the past 30879 hour(s)) ECHO Collection Time: 05/25/23 11:58 AM Impression CONCLUSIONS: - Exam indication: Shortness of Breath - The left ventricle is normal in size. Left ventricular systolic function is normal. EF = 63 5% (2D biplane) - The right ventricle is normal in size. Right ventricular systolic function is normal. - Estimated right ventricular systolic pressure is likely underestimated due to a weak or incomplete tricuspid regurgitation signal and is, at least, 29 mmHg consistent with normal pulmonary artery pressures. Estimated right atrial pressure is 3 mmHg based on IVC assessment. - There are no significant valvular abnormalities. - Exam was compared with the prior echocardiographic exam performed on 02/09/2021. There has been interval improvement in RVSP. * * * Final * * * Instructions Given to Patient: Instructions located in the after visit summary. Patient given verbal and written preop instructions and voices comprehension and compliance. SIGNATURE: Jacqueline Peck APRN.CNP PATIENT NAME: Tennille Ortiz DATE: June 18, 2024 TIME: 9:21 AM PAGER/CONTACT #: documented in this encounter [facility] 06-18-2024 History of Present illness Narrative Radiology Service Progress Note PATIENT NAME: Tennille Ortiz DATE OF SERVICE: June 18, 2024 TIME: 8:11 AM PATIENT IDENTITY VERIFICATION COMPLETED USING TWO (2) IDENTIFIERS: Name and Date of confirmed by patient verbally. FALL SCREENING: Has the patient had 2 falls in the last year or 1 fall with injury or currently using an Ambulatory Assistive Device (Walker, Cane, Wheelchair, Crutches, etc.)? No PATIENT GENDER DATA: Female. status: : No status: NO. PATIENT RELEVANT IMPLANT DATA REVIEWED: Yes PATIENT PRESENTS WITH AN IMPLANTABLE OR ATTACHED BLOOD BANK BOOKING CLERK: No RADIOLOGY DEPARTMENT: MR; Exam(s) Completed: Upper MSK: Shoulder, right PERIPHERAL IV DATA: Not applicable SIGNED BY: RT Andrew(Selina) June 18, 2024 8:11 AM documented in this encounter [facility] 06-18-[address] [facility] 05-30-2024 Telephone encounter Note Images from the original note were not included. Most recent Rheumatology visit: 04/18/2024 (with Donnie Snow) Last Bone Density on file: 11/08/2022 Rheumatology Care Team: None on file Recent Office Visits - This Specialty 04/18/2024 Age-related osteoporosis without current pathological fracture Rheumatology Donnie Snow MD 01/25/2024 Systemic scleroderma (HCC) Rheumatology Chasity Suggs PA 10/17/2023 Systemic scleroderma (HCC) Rheumatology Donnie Snow MD Upcoming Rheumatology Appointments - Next 365 Days No appointments to display CBC: Latest Ref Rng & Units 02/03/2024 04/18/2024 CBC WBC 3.70 - 11.00 k/uL 6.32 7.07 Hemoglobin 11.5 - 15.5 g/dL 11.8 13.1 Hematocrit 36.0 - 46.0 % 38.9 42.8 Platelet Count 150 - 400 k/uL 257 241 Abs Neut (ANC) 1.45 - 7.50 k/uL 3.97 5.25 Abs Lymph 1.00 - 4.00 k/uL 1.43 1.12 Vitamin D: Latest Ref Rng & Units 10/21/2023 04/18/2024 Vitamin D Vitamin D 25 Hydroxy 31.0 - 80.0 ng/mL 47.5 47.2 LFT: Latest Ref Rng & Units 02/03/2024 04/18/2024 CMP Sodium 136 - 144 mmol/L 138 139 Potassium 3.7 - 5.1 mmol/L 4.0 4.1 Chloride 98 - 107 mmol/L 100 99 CO2 22 - 30 mmol/L 30 31 Glucose 74 - 99 mg/dL 86 91 BUN 7 - 21 mg/dL 19 15 Creatinine 0.58 - 0.96 mg/dL 0.33 0.31 Calcium 8.5 - 10.2 mg/dL 9.4 9.7 AST 13 - 35 U/L 12 15 ALT 7 - 38 U/L 10 11 Alkaline Phosphatase 34 - 123 U/L 63 58 Hepatic Function: Creatinine: Latest Ref Rng & Units 02/03/2024 04/18/2024 Creatinine Creatinine 0.58 - 0.96 mg/dL 0.33 0.31 ESR/CRP: None on file in the last 6 months Uric Acid: None on file in the last 6 months Open Standing (Multiple Instance) Lab Orders None Open Future (Single Instance) Lab Orders Expected Expires Ordered BASIC METABOLIC PANEL [SQBMP] 07/02/24 10/01/24 05/28/24 Auth. provider: Heri Pappas PA-C Assoc. diagnoses: Glenohumeral arthritis, right, Pre-op exam TYPE AND SCREEN,30 DAY [[id number]] 07/02/24 10/01/2424 Auth. provider: Heri Pappas PA-C Assoc. diagnoses: Glenohumeral arthritis, right, Pre-op exam COMPLETE BLOOD COUNT AND DIFFERENTIAL [SQCBCDIF] 07/02/24 08/28/24 05/28/24 Auth. provider: Heri Pappas PA-C Assoc. diagnoses: Glenohumeral arthritis, right, Pre-op exam [facility] 05-30-2024 Miscellaneous Notes Images from the original note were not included. Most recent Rheumatology visit: 04/18/2024 (with Donnie Snow) Last Bone Density on file: 11/08/2022 Rheumatology Care Team: None on file Recent Office Visits - This Specialty 04/18/2024 Age-related osteoporosis without current pathological fracture Rheumatology Donnie Snow MD 01/25/2024 Systemic scleroderma (HCC) Rheumatology Chasity Suggs PA 10/17/2023 Systemic scleroderma (HCC) Rheumatology Donnie Snow MD Upcoming Rheumatology Appointments - Next 365 Days No appointments to display CBC: Latest Ref Rng & Units 02/03/2024 04/18/2024 CBC WBC 3.70 - 11.00 k/uL 6.32 7.07 Hemoglobin 11.5 - 15.5 g/dL 11.8 13.1 Hematocrit 36.0 - 46.0 % 38.9 42.8 Platelet Count 150 - 400 k/uL 257 241 Abs Neut (ANC) 1.45 - 7.50 k/uL 3.97 5.25 Abs Lymph 1.00 - 4.00 k/uL 1.43 1.12 Vitamin D: Latest Ref Rng & Units 10/21/2023 04/18/2024 Vitamin D Vitamin D 25 Hydroxy 31.0 - 80.0 ng/mL 47.5 47.2 LFT: Latest Ref Rng & Units 02/03/2024 04/18/2024 CMP Sodium 136 - 144 mmol/L 138 139 Potassium 3.7 - 5.1 mmol/L 4.0 4.1 Chloride 98 - 107 mmol/L 100 99 CO2 22 - 30 mmol/L 30 31 Glucose 74 - 99 mg/dL 86 91 BUN 7 - 21 mg/dL 19 15 Creatinine 0.58 - 0.96 mg/dL 0.33 0.31 Calcium 8.5 - 10.2 mg/dL 9.4 9.7 AST 13 - 35 U/L 12 15 ALT 7 - 38 U/L 10 11 Alkaline Phosphatase 34 - 123 U/L 63 58 Hepatic Function: Creatinine: Latest Ref Rng & Units 02/03/2024 04/18/2024 Creatinine Creatinine 0.58 - 0.96 mg/dL 0.33 0.31 ESR/CRP: None on file in the last 6 months Uric Acid: None on file in the last 6 months Open Standing (Multiple Instance) Lab Orders None Open Future (Single Instance) Lab Orders Expected Expires Ordered BASIC METABOLIC PANEL [SQBMP] 07/02/24 10/01/24 05/28/24 Auth. provider: Heri Pappas PA-C Assoc. diagnoses: Glenohumeral arthritis, right, Pre-op exam TYPE AND SCREEN,30 DAY [[id number]] 07/02/24 10/01/24 05/28/24 Auth. provider: Heri Pappas PA-C Assoc. diagnoses: Glenohumeral arthritis, right, Pre-op exam COMPLETE BLOOD COUNT AND DIFFERENTIAL [SQCBCDIF] 07/02/24 08/28/24 05/28/24 Auth. provider: Heri Pappas PA-C Assoc. diagnoses: Glenohumeral arthritis, right, Pre-op exam Pt is currently taking 4 mg per day. documented in this encounter [facility] 05-30-2024 Telephone encounter Note Pt is currently taking 4 mg per day. [facility] 05-18-2024 History of Present illness Narrative Subjective Patient ID: Tennille Ortiz is a 59 y.o. female who presents for Sleeping problems (Pt is here today for some sleeping problems and some other issues. ). Patient presents for treatment for ongoing sleep problems and restless leg syndrome. Restless leg syndrome: Currently on treatment with Requip. Patient is still experiencing restless leg that wakes her up nightly leading to insomnia. Discussed change medication with her primary care provider Dr. De. We will taper Requip slowly over 9 days and start her on levodopa carbidopa, low-dose for 3 days then increase dose after 3 days and she will follow-up in 1 month to assess effectiveness. It is my belief that the treatment will be more appropriate as levodopa carbidopa has more of a sedative effect and could help her sleep at the same time. Her insomnia is a combination of restless leg and pain issues secondary to her scleroderma. Scleroderma: Patient is having difficulty with activities of daily living, not limited to feeding herself, bathing herself and in general caring for self around the house. She reached out to her insurance company about home health care. They need a note from this office to authorize home health care. In my opinion it is necessary for her to have assistance that she cannot even lift simple objects has trouble touching and picking up things and has nutritional deficits because of it. I put in a referral to home health care and she is going to call us back after contacting her insurance company to identify locations in [place] that we will be able to come to her. Once she contacts us we will fax the appropriate paperwork to her company so she can get home health care established. Review of Systems Constitutional: Negative for chills, diaphoresis, fatigue and unexpected weight change. HENT: Negative for dental problem, tinnitus and trouble swallowing. Eyes: Negative for visual disturbance. Respiratory: Negative for chest tightness and shortness of breath. Cardiovascular: Negative for chest pain, palpitations and leg swelling. Gastrointestinal: Negative for abdominal pain, constipation, diarrhea, nausea and rectal pain. Endocrine: Negative for polydipsia, polyphagia and polyuria. Genitourinary: Negative for difficulty urinating, frequency and urgency. Musculoskeletal: Positive for arthralgias and myalgias. Skin: Negative for pallor and wound. Neurological: Negative for syncope, weakness, numbness and headaches. Psychiatric/Behavioral: Positive for sleep disturbance. Negative for self-injury and suicidal ideas. The patient is not nervous/anxious. Objective BP 100/70 Ht 1.575 m (5' 2) Wt (!) 43.2 kg (95 lb 3.2 oz) LMP (LMP Unknown) BMI 17.41 kg/m Physical Exam Vitals and nursing note reviewed. Constitutional: General: She is not in acute distress. Appearance: Normal appearance. She is ill-appearing. HENT: Head: Normocephalic. Nose: Nose normal. Mouth/Throat: Mouth: Mucous membranes are moist. Pharynx: Oropharynx is clear. Eyes: Pupils: Pupils are equal, round, and reactive to light. Cardiovascular: Rate and Rhythm: Normal rate and regular rhythm. Pulses: Normal pulses. Heart sounds: Normal heart sounds. Pulmonary: Effort: Pulmonary effort is normal. Breath sounds: Normal breath sounds. Abdominal: General: Bowel sounds are normal. Palpations: Abdomen is soft. Musculoskeletal: General: Deformity (Chronic contractures) present. Cervical back: Normal range of motion. Comments: Chronically reduced range of motion in all limbs secondary to scleroderma Skin: General: Skin is warm and dry. Capillary Refill: Capillary refill takes less than 2 seconds. Neurological: General: No focal deficit present. Mental Status: She is alert and oriented to person, place, and time. Mental status is at baseline. Motor: Weakness present. Comments: Baseline weakness Psychiatric: Mood and Affect: Mood normal. Behavior: Behavior normal. Thought Content: Thought content normal. Judgment: Judgment normal. Assessment/Plan Diagnoses and all orders for this visit: Scleroderma (Multi) - Referral to Home Care; Future Restless leg syndrome - carbidopa-levodopa (Sinemet) 25-250 mg tablet; Take 1 tablet by mouth once daily at bedtime for 3 days, THEN 2 tablets once daily at bedtime. - rOPINIRole (Requip) 0.5 mg tablet; Take 2 tablets (1 mg) by mouth 2 times a day for 3 days, THEN 2 tablets (1 mg) once daily at bedtime for 3 days, THEN 1 tablet (0.5 mg) once daily at bedtime for 3 days. documented in this encounter [facility] Work Phone: 05-16-[address] [facility] 05-16-2024 History of Present illness Narrative PULM FUNCTION: Provider: Murphy Bills MD Assisting Tech: Evy Alves RPFT Spirometry: 1 documented in this encounter [facility] 05-16-[address] [facility] 05-16-2024 History of Present illness Narrative Images from the original note were not included. 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 She has a history of tracheostomy tube as well as PEG tube placement. Most recent CT chest in November 2023 demonstrated bilateral lower lobe pulmonary fibrosis with a slight increase in prominence of cystic changes in the left lower lobe. Today, patient reports occasional cough, primarily non-productive. No hemoptysis. No wheezing. Exertional dyspnea does not limit her activities. No fevers, chills, or night sweats. No unintended weight loss. No lower extremity edema. No GERD/heartburn. No recent hospitalizations or ED visits or upper respiratory infections. Patient denies dysphagia, stating I know what I can eat and I tuck my chin. PAST MEDICAL HISTORY Diagnosis Date Asthma DUB (dysfunctional uterine bleeding) Hypoglycemia Hypothyroidism ILD (interstitial lung disease) (HCC) Polymyositis ([facility]) Preop exam for internal medicine Raynaud's syndrome Raynaud's disease Restrictive lung disease Systemic sclerosis (HCC) limited Vitamin D deficiency Allergies: Fortaz [Ceftazidime] Hives Comment:Hives, itching, peeling, Aspirin Comment:capillaries break Betadine [Povidone-* Itching Clindamycin Other: See Comments Comment:Skin peel, red rash, weight gain, swelling in the face and legs. Itchy. Doxycycline Shortness of Breath, Myalgia Erythromycin Base Comment:diarrhea Penicillins Hives Comment:Tolerated zosyn 8/9 predniSONE (DELTASONE) 1 mg tablet Take 4 tablets by mouth once daily. tiZANidine (ZANAFLEX) 2 mg tablet Take 2 mg by mouth every 8 hours as needed. rosuvastatin (CRESTOR) 20 mg tablet Take 1 tablet by mouth once daily. PARoxetine (PAXIL) 10 mg tablet Take 10 mg by mouth once daily. triamcinolone acetonide (KENALOG) 0.1 % cream Apply to affected area two times a day. romosozumab-aqqg (EVENITY SUBCUTANEOUS) Inject subcutaneously once every month. (Patient not taking: Reported on 04/18/2024) rOPINIRole (REQUIP) 0.5 mg tablet Take 0.5 mg by mouth as needed. (Patient not taking: Reported on 04/18/2024) calcium carbonate (CALCIUM 600 ORAL) Take 100 Units by mouth once daily. unknown dose calcium carbonate (CALCIUM 300 ORAL) Take by mouth. unknown dosage cholecalciferol (VITAMIN D3) 400 unit tab Take by mouth. multivitamin tablet Take by mouth. rOPINIRole (REQUIP) 0.25 mg tablet Take 1 tablet by mouth twice daily. albuterol (PROVENTIL) 2.5 mg /3 mL (0.083 %) nebulizer solution Use 3 mL via nebulizer every 4 hours. sodium chloride 7% solution 7 % nebu Inhale 4 mL as instructed twice daily. sodium chloride 7% solution 7 % nebu Inhale 4 mL as instructed twice daily. Ibuprofen 200 mg cap Take 800 mg by mouth three times daily. levothyroxine (SYNTHROID) 100 mcg tablet Take 1 tablet by mouth daily before breakfast. Nebulizer and Compressor For Neb Bekah 1 Device as needed. Use as directed. Social History Tobacco Use Smoking status: Never Smokeless tobacco: Never Vaping Use Vaping status: Never Used Substance Use Topics Alcohol use: Yes Comment: occasionally Drug use: No Family History Problem Relation Age of Onset Heart Mother Heart Father Cervical Cancer Sister Alzheimer's Disease Maternal Grandmother Cancer Maternal Grandmother unsure Heart Paternal Grandfather other (negative [Other]) Other negative for breast, ovary or endometrial PAST SURGICAL HISTORY Procedure Laterality Date APPENDECTOMY ARTHRP ACETBLR/PROX FEM PROSTC AGRFT/ALGRFT right hip DILATION & CURETTAGE DX&/THER NONOBSTETRIC Dilation & curettage LIG/TRNSXJ FLP TUBE ABDL/VAG APPR UNI/BI Tubal ligation MIDLINE INSERTION/CONSULT 08/22/2017 PAST SURGICAL HISTORY OF GI tube PAST SURGICAL HISTORY OF right vascular reconstruction PAST SURGICAL HISTORY OF tracheostomy PAST SURGICAL HISTORY OF removal of calcium deposits from right hand PAST SURGICAL HISTORY OF 2009 Hysterectomy Ovaries Intact I reviewed the past medical history, family history, social history and surgical history with changes noted above and updated in EMR. IMMUNIZATIONS Immunization History Administered Date(s) Administered influenza (IIV3) vaccine, age 6 mo - 64 yr, trivalent (AFLURIA, FLULAVAL, FLUVIRIN, FLUZONE) 04/19/2014 influenza (IIV3) vaccine, trivalent (AFLURIA, FLULAVAL, FLUVIRIN, FLUZONE) 02/20/2017 05/25/2021 influenza (IIV4) vaccine, age 6 mo - 64 yr, quadrivalent (AFLURIA, FLULAVAL, FLUZONE) 04/20/2023 influenza (IIV4) vaccine, age 6 mo - 64 yr, quadrivalent, PF (AFLURIA, FLUARIX, FLULAVAL, FLUZONE) 05/25/2021 influenza (LAIV) vaccine, nasal, unspecified formulation 03/06/2012 influenza vaccine, unspecified formulation 03/06/2012 pneumococcal (PCV7) vaccine, 7 valent (PREVNAR 7) 1965 pneumococcal conjugate (PCV13) vaccine, 13 valent (PREVNAR 13) 08/27/2019 pneumococcal conjugate (PCV20) vaccine, 20 valent (PREVNAR 20) 02/10/2024 tuberculin skin test, unspecified formulation 08/22/2019 08/29/2019 ROS: All other systems reviewed as negative except for what is noted in HPI and review of systems. PHYSICAL EXAMINATION: BP 106/62 Pulse 78 Resp 18 Wt 40.8 kg (90 lb) LMP 04/12/2010 BMI 16.46 kg/m Gen: No acute distress. Cooperative with examination. Cachectic. HEENT: Normocephalic. Sclera, conjunctiva clear. Poor dentition. Resp: No stridor, accessory respiratory muscle use, supra-sternal or intercostal retractions. Basilar crackles, left > right. No wheezes. CV: Regular rythm. Heart tones normal. Ext: No edema. Chronic deformities bilateral hands and fingers. Neuro: Mental status normal. Affect normal. No tremor. DATA: Laboratory and Imaging: PFT, 05/16/2024 Arterial blood gas: pH, Arterial Date Value Ref Range Status 02/11/2021 7.23 (L) 7.35 - 7.45 Final pCO2, Arterial Date Value Ref Range Status 02/11/2021 60 (H) 34 - 46 mm Hg Final pO2, Arterial Date Value Ref Range Status 02/11/2021 164 (H) 85 - 95 mm Hg Final Bicarbonate, Arterial Date Value Ref Range Status 02/11/2021 24 22 - 26 mmol/L Final Base Excess, Arterial Date Value Ref Range Status 02/11/2021 NEG 3 mmol/L Final Lactate Date Value Ref Range Status 02/12/2021 1.2 0.5 - 2.2 mmol/L Final CT Chest other findings: Last CT Chest - Impression Only CT CHEST WO IVCON Exam End: 11/29/2023 11:39 AM (Final result) Impression: IMPRESSION: 1. Again noted is pulmonary fibrosis which is most pronounced in bilateral posterior lower lobes. There has been a slight increase in prominence of cystic changes in the left lower lobe. Findings are most likely due to chronic aspiration. 2. No new thoracic lymphadenopathy ... Last XR Chest - Impression Only XR CHEST 2V FRONTAL/LAT Exam End: 04/20/2023 3:37 PM (Final result) Impression: IMPRESSION: Asymmetric fibrotic interstitial lung disease with basilar predominance, predominantly in the left lower lobe. ... ASSESSMENT/PLAN: 1. ILD (interstitial lung disease) (HCC) - ICD9: 515, ICD10: J84.9 (primary diagnosis) Severe restriction on PFT, stable today. CT chest with pulmonary fibrosis in bilateral lower lobes with a slight increase in prominence of cystic changes in the left lower lobe. Findings are most consistent with chronic aspiration. Considered anti-fibrotic therapy, but most likely will not prevent the progression of disease with ongoing aspiration. Recommend swallow study and evaluation. However, patient is hesitant. 2. Systemic sclerosis with myopathy (HCC) - ICD9: 710.1, 359.6, ICD10: M34.82 Follows with rheumatology. On low-dose prednisone 3. Pulmonary aspiration of gastric contents, subsequent encounter - ICD9: V58.89, 934.9, ICD10: T17.818D See #1. Portions of this documentation were copied and pasted from previous office visit notes in order to provide a cohesive continuity of the history. The note has been reviewed and edited and updated as necessary. Valeria Pittman PA-C documented in this encounter [facility] 04-18-2024 Instructions Donnie Snow MD - 04/18/2024 10:15 AM EDT It was a pleasure to see you in the Rheumatology clinic today! MEDICATIONS: Calcium: I recommend 3222-7018 mg of calcium daily. If you are not able to get this from your diet, then I recommend that you add a calcium supplement such as calcium citrate. Please use a calcium calculator such as this one from the [employer]: [email or web address] [email or web address]/calci umvitamin-d/ Continue vitamin D supplement. LABS: Please go to any [facility] laboratory to get blood tests on the first floor of the [facility] building. BONE DENSITY SCAN Please schedule a bone density scan after 11/08/2024. Please call [phone] to schedule at your convenience. FOLLOW UP: I will contact you by phone or by [employer] if there are any concerning results. We will discuss the next steps once all of the results have returned. Here is information about safe movement for patients with osteoporosis: [email or web address] isesafe-movement/ documented in this encounter [facility] 04-18-[address] [facility] 04-18-2024 History of Present illness Narrative Images from the original note were not included. Osteoporosis and Metabolic Bone Disease CONSULTATION Referring Provider: Date of Service: 04/18/2024 Name: Tennille Ortiz : 1965 Chief Complaint: Osteoporosis Last Rheumatology visit: 04/18/2024 (with Donnie Snow) Date of Last Reclast Injection: 01/16/2024 Tennille Ortiz is a 59 year old female who presents on 04/18/2024 for in-person visit for osteoporosis evaluation. HISTORY OF PRESENT ILLNESS Past medical history of scleroderma/myositis overlap (presence of ILD, sclerodactyly, acroosteolysis, calcinosis) and osteoporosis (Reclast once in 2016 then lost to follow-up. Evenity for 1 year in [id number] followed by 1 month of Reclast in January 2024) and chronic prednisone 4 mg. Patient has previously followed with Dr. Fuentes until 2019 and lost to follow-up. Most recent bone density scan in November 2022 showing lowest T score -4.1 in L femoral neck. She has been having steady decline in BMD in 2014 and 2016 and 2022 DXA scans. She had a one-time fragility fracture in 2021 has compression fracture of her T6-T7 vertebrae. Her scleroderma and myositis has not been followed by any occup therapist since the last follow-up with Dr. Fuentes and she has been taking prednisone 4 mg as maintenance therapy at least 10 years. Recap of her scleroderma and myositis history: Scleroderma without truncal involvement, presence of ILD and severe restrictive lung disease (moderately reduced DLCO and reduced TLC, however thought to be due to chronic aspiration and not systemic sclerosis). Also calcinosis, sclerodactyly, severe contractures in her fingers limiting her life with fine motor movements. Lost to follow-up with Dr. Fuentes and [place]ie. Myositis diagnosis in 1988; last flare 1998. Treated with prednisone and methotrexate. INTERVAL HISTORY -Tennille Ortiz is a 58 year old woman with a PMH of asthma, adnexal mass, hypothyroidism, depression, RLS who presents to follow up for scleroderma (since 1988), myositis (since 1988), and OP. -She is scheduled for shoulder surgery in June. -She completed 1-year course of Evenity and subsequently received a dose of Reclast on 01/16/2024. Tolerated it well. She confirms that she is supplementing vitamin D and calcium. -Previous report of cellulitis in the R arm is now completely resolved. -Saw dermatology for a spot on her chest. Associated with a sharp pain. They weren't too helpful, weren't too sure what it was. Told it was under the skin and crackly. Had a similar spot that had been frozen off before. Tried to moisturize it with lotion, but this hasn't really helped. -She had a R occipital nerve block with Dr. Awad. -She also has a long standing history of limited scleroderma and myositis which she states is stable. She takes prednisone 4mg daily for maintenance. -She saw Dr. Bills (pulmonary): ILD thought to be due to aspiration (and not due to systemic sclerosis), she does have fibrosis (not currently treating), and restrictive lung disease. High-res CT chest in November 2023 showed pulmonary fibrosis in the bilateral posterior lower lobes with slight increase in prominence of cystic changes in the left lower lobe, consistent with chronic aspiration. She has an appointment with Dr. Bills next month. -Patient states that she takes ibuprofen daily for neck pain. Takes 800mg BID, might take more or less depending on pain levels. She denies GERD and is not on a PPO -GI suggested EGD to evaluate for kaplan's , erosive disease, stricture but patient deferred -Patient has raynaud's but no ulcers. She states she had gangrene once which happened after a procedure of that area. She is not on medication for management of raynaud's -TTE from 05/2023 showed improved RVSP. -Patient endorses weakness, dysphagia, dyspnea but states all is stable. -She moved to a house all on one level a few months ago and this has been helpful for her mobility. Osteoporosis History Patient has a history of fracture(s) (Comment: T6 and T7) Vertebral Fracture Date: 04/2022 Age: 57 (Comment: R knee after mechanical fall slipping on ice, non fragility) L Shoulder and R knee fracture, nonfragility Most Recent BMD Date: 11/08/22 LS: 0.859 g/cm2 Hip - Left: 0.471 g/cm2 LS T-Score: -2.7 LS Z-Score: -1.6 decrease L Hip T-Score: -4.1 L Hip Z-Score: -2.9 decrease Unavailable Daily Calcium diet: 450 mg Daily Calcium supplementation: (Comment: doesn't recall dose, however does not take consistently) Daily Vitamin D: 1000 IU Current Multivitamin: Yes Dental: Broken teeth, cannot open her mouth No extraction planned. RISK FACTORS Osteoporosis FRAX Risk Factors Fracture(s) (Comment: T6 and T7) Vertebral Fracture Date: 04/2022 Age: 57 (Comment: R knee after mechanical fall slipping on ice, non fragility) L Shoulder and R knee fracture, nonfragility No family history of osteoporosis No parent with a hip fracture Not a current smoker Glucocorticoid use (Comment: 4 mg, since age of 24; at least 10 years she is taking 4 mg) Current use No rheumatoid arthritis Secondary osteoporosis No type 1 diabetes (IDDM) No hyperthyroidism Early menopause (< 45 years old) (Comment: age ~43) Chronic malnutrition no malabsorption No chronic liver disease No alcohol use more than 3 units per day Osteoporosis Medication Risk Factors No use of Anti-convulsants No use of Aromatase inhibitors No use of Furosemide No use of Proton pump inhibitor No use of Thyroid hormone with oversuppression No use of FPC heparin use Other high risk medication for bone loss Overall med risk factors - additional details: chronic steroids Osteoporosis Disease-Specific Risk Factors Weight < 127 lbs Height loss 1 inch 10 years Fall history Fall Date Description / Comment April 2022 from standing height Eating Disorder (Comment: cannot open her mouth due to SSc) No hyperparathyroidism No history of hypercalciuria Renal calculi (Comment: many years ago) No CKD Caffeine intake: 1-3 c/day Exercise routine: no regular exercise program WOMEN / ESTROGEN Age of Menarche: 11 years Menopause status: post-menopausal Type of Menopause: surgical Age of Menopause: 45 years Previous estrogen use: none Hysterectomy: Yes Hysterectomy age: 45 years Ovaries: intact Breast cancer: No Family history of breast cancer: No OB History 3 Para 2 Term 2 0 AB 1 Living 2 SAB 1 IAB 0 Ectopic 0 Multiple 0 Live Births TREATMENT HISTORY Osteoporosis - Antiresorptive Treatments Treatment Start Date Stop Date Stop Reason Comment Zoledronic acid 2016 2017 pt choice 1 year only Zoledronic acid 01/26/2024 Osteoporosis - Anabolic Treatments Treatment Start Date Stop Date Stop Reason Comment Evenity 01/2023 Prednisone Treatments Treatment Start Date Stop Date Stop Reason Comment Prednisone 4 mg 1989 at least for the past 10-20 years taking 4 mg, before that higher, but always took steroids Answers submitted by the patient for this visit: Review of Systems Rheumatology (Submitted on 04/16/2024) Fever : No Recent unintentional weight change: No Eye pain: No Eye redness: No Vision Disturbance: No Eye Dryness: Yes Nosebleeds: No Sores in your mouth: No Trouble Swallowing: Yes Dry Mouth: Yes Chest pain: Yes Leg Swelling: No A cough: Yes Blood when you cough: No Shortness of breath: No Pain with breathing: No Heartburn: No Abdominal pain: No Diarrhea: No Black tarry stools: No Blood in urine: No Pain or burning with urination: No Joint pain or stiffness: Yes Muscle weakness: Yes Muscle aches: Yes Joint swelling: Yes Morning Stiffness in Joints: Yes A rash: No Skin Color Changes: No Hair Loss: Yes Nail Changes: No Headaches: No Numbness: No Memory Loss: No Swollen Glands: No Comprehensive review of systems completed and negative except as indicated above. ACTIVE PROBLEM LIST Systemic sclerosis; CREST Degenerative Skin Disorder Unspecified Hypothyroidism Unspecified Disorder of Menstruation and Other Abnormal Bleeding From Female Genital Tract Dub (Dysfunctional Uterine Bleeding) Preop Exam for Internal Medicine Hypothyroidism Polymyositis (HCC) Raynaud's Syndrome Restrictive lung disease, Acute Productive Cough Urine, Incontinence, Stress Female Uterovaginal Prolapse Sleep Apnea Muscular Deconditioning Summary Adnexal Mass Restless Leg Syndrome Palpitations Healthcare Maintenance Ischemia of Digits of Hand Depression Exacerbation of Asthma Abnormal Sputum Age-Related Osteoporosis Without Current Pathological Fracture Current Chronic Use of Systemic Steroids Fracture of Vertebra Due to Osteoporosis (Hcc) Occipital Neuralgia of Right Side Protein-Calorie Malnutrition (Hcc) Coagulation Defect, Unspecified (Hcc) Glenohumeral Arthritis, Right MEDICATIONS Present Osteoporosis Medications: Current Anabolic Medications Bone Formation Agents - Sclerostin Inhibitor, Monoclonal Antibody Start End romosozumab-aqqg (EVENITY SUBCUTANEOUS) -- Sig - Route: Inject subcutaneously once every month. - SUBCUTANEOUS Patient not taking: Reported on 04/18/2024 Class: Historical Med Current Calcium, Multivitamin, and Vitamin D Use on File Minerals and Electrolytes - Calcium Replacement Start End calcium carbonate (CALCIUM 600 ORAL) -- Sig - Route: Take 100 Units by mouth once daily. unknown dose - ORAL Class: Historical Med calcium carbonate (CALCIUM 300 ORAL) -- Sig - Route: Take by mouth. unknown dosage - ORAL Class: Historical Med Vitamins - D Derivatives Start End cholecalciferol (VITAMIN D3) 400 unit tab -- Sig - Route: Take by mouth. - ORAL Class: Historical Med Multivitamins Start End multivitamin tablet -- Sig - Route: Take by mouth. - ORAL Class: Historical Med Current Outpatient Medications Medication Sig predniSONE (DELTASONE) 1 mg tablet Take 4 tablets by mouth once daily. tiZANidine (ZANAFLEX) 2 mg tablet Take 2 mg by mouth every 8 hours as needed. rosuvastatin (CRESTOR) 20 mg tablet Take 1 tablet by mouth once daily. triamcinolone acetonide (KENALOG) 0.1 % cream Apply to affected area two times a day. calcium carbonate (CALCIUM 600 ORAL) Take 100 Units by mouth once daily. unknown dose calcium carbonate (CALCIUM 300 ORAL) Take by mouth. unknown dosage cholecalciferol (VITAMIN D3) 400 unit tab Take by mouth. multivitamin tablet Take by mouth. rOPINIRole (REQUIP) 0.25 mg tablet Take 1 tablet by mouth twice daily. albuterol (PROVENTIL) 2.5 mg /3 mL (0.083 %) nebulizer solution Use 3 mL via nebulizer every 4 hours. sodium chloride 7% solution 7 % nebu Inhale 4 mL as instructed twice daily. sodium chloride 7% solution 7 % nebu Inhale 4 mL as instructed twice daily. Ibuprofen 200 mg cap Take 800 mg by mouth three times daily. levothyroxine (SYNTHROID) 100 mcg tablet Take 1 tablet by mouth daily before breakfast. Nebulizer and Compressor For Neb Bekah 1 Device as needed. Use as directed. PARoxetine (PAXIL) 10 mg tablet Take 10 mg by mouth once daily. romosozumab-aqqg (EVENITY SUBCUTANEOUS) Inject subcutaneously once every month. (Patient not taking: Reported on 04/18/2024) rOPINIRole (REQUIP) 0.5 mg tablet Take 0.5 mg by mouth as needed. (Patient not taking: Reported on 04/18/2024) No current facility-administered medications for this visit. PAST MEDICAL HISTORY Diagnosis Date Asthma DUB (dysfunctional uterine bleeding) Hypoglycemia Hypothyroidism ILD (interstitial lung disease) (HCC) Polymyositis (HCC) Preop exam for internal medicine Raynaud's syndrome Raynaud's disease Restrictive lung disease Systemic sclerosis (HCC) limited Vitamin D deficiency PAST SURGICAL HISTORY Procedure Laterality Date APPENDECTOMY ARTHRP ACETBLR/PROX FEM PROSTC AGRFT/ALGRFT right hip DILATION & CURETTAGE DX&/THER NONOBSTETRIC Dilation & curettage LIG/TRNSXJ FLP TUBE ABDL/VAG APPR UNI/BI Tubal ligation MIDLINE INSERTION/CONSULT 08/22/2017 PAST SURGICAL HISTORY OF GI tube PAST SURGICAL HISTORY OF right vascular reconstruction PAST SURGICAL HISTORY OF tracheostomy PAST SURGICAL HISTORY OF removal of calcium deposits from right hand PAST SURGICAL HISTORY OF 2010 Hysterectomy Ovaries Intact PAIN EVALUATION 04/16/2024 1731 04/18/2024 0907 Pain Level: 6 5 Pain Location: Neck -- Description: Aching;Pressure;Spasm;Stiffness;T ightness Aching;Stiffness;Sore Duration Amount of Time: 24 -- Duration Units: Hours -- Frequency: Continuous Continuous Intervention/Comfort measure: Medication;Reposition;Pillow support -- Comments: Pain also right shoulder and arm -- ALLERGIES Allergen Reactions Fortaz [Ceftazidime] Hives Hives, itching, peeling, Aspirin capillaries break Betadine [Povidone-* Itching Clindamycin Other: See Comments Skin peel, red rash, weight gain, swelling in the face and legs. Itchy. Doxycycline Shortness of Breath, Myalgia Erythromycin Base diarrhea Penicillins Hives Tolerated zosyn 02/09 FAMILY HISTORY Problem Relation Age of Onset Heart Mother Heart Father Cervical Cancer Sister Alzheimer's Disease Maternal Grandmother Cancer Maternal Grandmother unsure Heart Paternal Grandfather other (negative [Other]) Other negative for breast, ovary or endometrial Social History Tobacco Use Smoking status: Never Smokeless tobacco: Never Vaping Use Vaping status: Never Used Substance Use Topics Alcohol use: Yes Comment: occasionally Drug use: No May Goel, MS IV contributed to the history. Rheumatology Attending Staff Note: I reviewed the history obtained and documented by the medical student and I personally participated in the burris components of the history and exam. The exam, assessment and plan are my own. Donnie Snow MD Rheumatology Staff OBJECTIVE DATA: PHYSICAL EXAMINATION BP 98/60 Pulse 65 Temp 36.2 C (97.1 F) (Temporal) Ht 157.5 cm (5' 2) Wt 43.2 kg (95 lb 3.8 oz) LMP 04/12/2010 BMI 17.42 kg/m GENERAL: Alert and oriented. No acute distress. SKIN: Mauskopf facies. + sclerodactyly. No calcinosis seen today. No rashes or lesions. EYES: ADAM, conjunctiva and sclera normal. EARS: External ears normal. THROAT: Normal and no erythema. DENTAL: Abnormal: poor hygiene, cracked tooth HEART: RRR LUNGS: Bilateral fine crackles. NEURO: Awake, alert and oriented x 3, cranial nerves II-XII grossly intact, normal gait and no involuntary motions. JOINT EXAM -Neck painful ROM with flexion -Shoulders, elbows, wrists, hands, fingers: Chronic deformities with severe contractures of bilateral hands and fingers, significant ROM limitation of b/l shoulders. SPINE: -+ scoliosis. TTP at thoracic spine midline where she has fracture -Knees, ankles, feet, toes: + contractures of lower extremity. No erythema, warmth, swelling, effusion, tenderness, ROM limitation. ? RELEVANT PREVIOUS INVESTIGATIONS Latest Ref Rng & Units 10/21/2023 01/20/2024 02/03/2024 04/18/2024 Calcium Calcium 8.5 - 10.2 mg/dL 9.3 8.6 9.4 9.7 Latest Ref Rng & Units 01/13/2023 10/21/2023 02/03/2024 04/18/2024 Alkaline Phosphatase Alkaline Phosphatase 34 - 123 U/L 72 72 62 63 58 Alkaline Phosphatase 34 - 123 U/L 72 72 62 63 58 Latest Ref Rng & Units 12/03/2014 08/23/2017 02/08/2021 02/08/2021 TSH TSH 0.270 - 4.200 uU/mL 12.800 8.290 2.060 3.760 Latest Ref Rng & Units 10/09/2018 01/13/2023 10/21/2023 04/18/2024 Vitamin D Vitamin D 25 Hydroxy 31.0 - 80.0 ng/mL 41.9 31.8 47.5 47.2 Latest Ref Rng & Units 10/21/2023 01/20/2024 02/03/2024 04/18/2024 Creatinine Creatinine 0.58 - 0.96 mg/dL 0.31 0.33 0.33 0.31 Latest Ref Rng & Units 01/13/2023 10/21/2023 02/03/2024 04/18/2024 Protein, Total PTH, Intact 15 - 65 pg/mL 29 Protein, Total 6.3 - 8.0 g/dL 6.9 7.0 7.0 7.5 Latest Ref Rng & Units 01/13/2023 10/21/2023 02/03/202404/18/2024 Albumin Albumin 3.9 - 4.9 g/dL 4.1 3.7 4.1 4.1 Latest Ref Rng & Units 03/22/2008 01/13/2023 PTH PTH, Intact 15 - 65 pg/mL 19 29 Latest Ref Rng & Units 03/07/2013 03/08/2013 02/08/2021 02/09/2021 Hepatitis Screen Hep A Ab, IgM Negative Negative Negative Hep B Core Ab, IgM Negative Negative Negative Hep B Core Ab, Total NEGAT Negative Hep B Surf Ab Qual NEGAT Negative Hepatitis E Ab, IgM Negative Negative Hep C Antibody IA NEGAT Negative HBsAg Negative Negative Negative Negative BONE DENSITY RESULTS Last Bone Density DXA-AXIAL SKELETON Exam End: 11/08/2022 2:10 PM (Final result) Narrative: * * *Final Report* * * DATE OF EXAM: Nov 08 2022 2:10PM Miguel Angel [id number] - BD DXA - AXIAL SKELETON -NB / PROCEDURE REASON: Osteoporosis without current pathological fracture, unspecified osteoporosis typ * * * * Physician Interpretation * * * * EXAMINATION: DXA BONE DENSITOMETRY BD DXA - AXIAL SKELETON -NB CLINICAL HISTORY: DIAGNOSTIC Osteoporosis without current pathological fracture, unspecified osteoporosis type . DXA Model: Alloy Digital (S/N: [id number]) SITE SCANNED: Lumbar spine, left hip Date Scanned: 11/08/2022 2:10 PM RESULT: Lumbar spine (L1-L4): 0.859 g/cm2, T-score -2.7, Z-score -1.6 Lumbar spine: 2017: 0.975 g/cm2 Lumbar spine: 2014: 1.095 g/cm2 Lumbar spine change: -0.116 g/cm2, -11.9 %, significant decrease Left Femoral Neck: 0.471 g/cm2, T-score -4.1, Z-score -2.9 Left Femoral Neck: 2017: 0.550 g/cm2 Left Femoral Neck: 2015: 0.623 g/cm2 Left Femoral Neck Change: -0.079 g/cm2, -14.4 %, significant decrease Left Total Hip: 0.514 g/cm2, T-score -3.9, Z-score -3.1 Left Total Hip: 2017: 0.649 g/cm2 Left Total Hip: 2015: 0.713 g/cm2 Left Total Hip change: -0.135 g/cm2, -20.8 %, significant decrease Impression: IMPRESSION: THE LOWEST T-SCORE IS -4.1 IN THE LEFT HIP DIAGNOSIS: Osteoporosis Spine: Decreased bone mass in spine. Hip: Decreased bone mass in hip. FRACTURE RISK: very high risk RISK FACTORS: This patient is a 57 years Female. MENSTRUAL STATUS: She reports menstrual status of post-menopausal, menopause at age The patient reports the following risk factors associated with low bone mass or increased fracture risk: - previous fracture: left knee - low body weight <127 pounds - current steroid therapy The patient reports the following: - vitamin D intake - no calcium supplement, possible low calcium intake RECOMMENDATIONS: [facility] GUIDELINES: Postmenopausal women and men age 50 and older presenting with the following should be treated: -T-score < -2.5 at the femoral neck or spine after appropriate evaluation to exclude secondary causes Based on the patient age, bone density and risk factors: - the patient has had a significant decline in bone mass, careful follow up is recommended. Secondary causes for bone loss should be considered with appropriate lab testing. - pending workup, treatment would be indicated, but clinical correlation is required. - treatment with an anabolic agent, Forteo, Tymlos or Evenity should be considered. - the patient should take calcium, the recommended dose is 5058-9695 mg per day along with 800-1000 IU vitamin D (some patients may require higher doses of vitamin D). LIMITATIONS: - Steroid therapy may increase fracture risk independent of bone mass. FOLLOW-UP: Recommended in 1 year if on steroids ccEulalia Stevens PA-C Director Of Marketing Operations: HAYLEE Transcribe Date/Time: Nov 08 2022 2:50P Dictated by : REY FUENTES MD This examination was interpreted and the report reviewed and electronically signed by: REY FUENTES MD on Nov 08 2022 5:04PM EST IMAGING CT chest 11/29/2023 1. Again noted is pulmonary fibrosis which is most pronounced in bilateral posterior lower lobes. There has been a slight increase in prominence of cystic changes in the left lower lobe. Findings are most likely due to chronic aspiration. 2. No new thoracic lymphadenopathy XR R shoulder 11/29/2023 No acute fracture. Worsening degenerative disease of the right shoulder XR R shoulder 07/05/2023 No evidence of acute fracture or dislocation. Moderate-severe osteoarthritis. NM bone scan 05/25/2023 FOCAL INTENSE INCREASED TRACER UPTAKE IN THE BILATERAL SUPERIOR FACET JOINTS OF THE C1, CONSISTENT WITH SEVERE ARTHRITIC CHANGES VERSUS STRESS INJURY. DEGENERATIVE ARTHRITIC CHANGE. Last XR Thoracic Spine - Impression Only XR THORACIC GENERAL 3V AP/LAT/SWIMMERS Exam End: 12/10/2022 11:31 AM (Final result) Impression: IMPRESSION: Unchanged T6 compression fracture. Mild degenerative changes. ... Last MRI Thoracic Spine - Impression Only MRI THORACIC SPINE WO IVCON Exam End: 01/10/2023 2:49 PM (Final result) Impression: IMPRESSION: Chronic benign 70% compression fracture of the T6 vertebra with mild dorsal displacement of the posterior-superior superior wall. Less than 30% benign compression fracture due to superior endplate Schmorl's node T4. No evidence of an acute compression fracture. No marrow signal abnormality.... CT chest 02/04/2015 Lower lobe predominance traction bronchiectasis, peribronchial and subpleural cystic changes greater in the left lower lobe with apparent honeycombing probably related to UIP. XR hand 12/03/2014 FINDINGS CONSISTENT WITH SCLERODERMA. AMPUTATION THROUGH RIGHT SECOND PIP JOINT. XR knee 12/03/2014 IMPRESSION: DISTAL FEMORAL AVASCULAR NECROSIS BILATERALLY. PFTS 05/05/2023 Spirometry shows no obstruction.The reduced FVC suggests restriction. Recommend lung volumes if clinically indicated. The diffusing capacity is moderately reduced. The presence of a reduced lung diffusion capacity - that normalizes when measured independent of alveolar volume (kCO) is consistent with a nonparenchymal disorder but does not rule out parenchymal or pulmonary vascular disorder TTE 05/25/2023 - The left ventricle is normal in size. Left ventricular systolic function is normal. EF = 63 5% (2D biplane) - The right ventricle is normal in size. Right ventricular systolic function is normal. - Estimated right ventricular systolic pressure is likely underestimated due to a weak or incomplete tricuspid regurgitation signal and is, at least, 29 mmHg consistent with normal pulmonary artery pressures. Estimated right atrial pressure is 3 mmHg based on IVC assessment. - There are no significant valvular abnormalities. - Exam was compared with the prior echocardiographic exam performed on 02/09/2021. There has been interval improvement in RVSP. PATIENT-ENTERED DATA: PROMIS Assessments 03/11/2024 03/26/2024 04/16/2024 PROMIS Assessments Physical Health Percentile 10 10 10 Mental Health Percentile 9 9 5 Pain Score 2 2 2 Pain Interference Percentile 1 Fatigue Percentile 62 Physical Function Percentile 0 1 Multiple values from one day are sorted in reverse-chronological order PHQ-9 0 - 4: Minimal Depression 5 - 9: Mild Depression 10 - 14: Moderate Depression 15 - 19: Moderately Severe Depression 20 - 27: Severe Depression 11/28/2023 03/11/2024 03/26/2024 PHQ-9 PHQ-2 Score 4 1 1 2 PHQ-9 Score 10 RAPID 3 [place] Activities of Daily Living 04/16/2024 5:40 PM 01/23/2024 7:52 PM 10/11/2023 9:16 AM First answer obtained - 01/10/2023 8:20 PM Dress self? UNABLE to do UNABLE to do With MUCH difficulty With MUCH difficulty Get in and out of bed? With SOME difficulty With SOME difficulty With SOME difficulty With SOME difficulty Walk outdoors? With SOME difficulty With MUCH difficulty With SOME difficulty With SOME difficulty Wash and dry body? UNABLE to do UNABLE to do With SOME difficulty With MUCH difficulty Get in and out of car? With SOME difficulty With SOME difficulty With SOME difficulty With SOME difficulty IMPRESSION: (M81.0) Age-related osteoporosis without current pathological fracture (primary encounter diagnosis) (M34.9) Systemic sclerosis (HCC) (L98.9) Skin lesion (I73.00) Raynaud's disease without gangrene (J98.4) Restrictive lung disease, Acute Productive Cough (M33.20) Polymyositis (HCC) LS T-score -2.7, Right Hip T-score , Left Hip T-score -4.1 LS Z-score -1.6, Right Hip Z-score , Left Hip Z-score -2.9 The patient has osteoporosis. Risk factors: age, post-menopausal status, myositis and scleroderma overlap, long-term prednisone use, hysterectomy at age 45 Fracture history: vertebral fracture, R tibial plateau fracture and L shoulder. Her calcium intake is low, 521 mg with inconsistent calcium supplementation. Her vitamin D level was normal when last checked. Current osteoporosis treatment: On holiday Past osteoporosis treatment: Reclast (2016), Evenity (01/2023-01/2024), Reclast (01/16/2024) PLAN: Osteoporosis -Reviewed available DXA and labs. -She finished one year of Evenity and consolidation with Reclast in January 2024. Tolerated without issue. -Recommend obtaining additional labs as ordered below. -I recommend vitamin D at a dose of 800 -1,000 international unit(s) QD if vitamin D is in the normal range; this will be adjusted if vitamin D is low -Additionally recommend calcium at a dose of 6693-0167 mg QD in divided doses. If not obtained through the diet, recommend adding a calcium supplement as needed. -Other measures to prevent and treat osteoporosis and its complications are also recommended and have been discussed during this visit. Those include practicing aerobic exercise, limiting the intake of alcohol, and preventing falls (e.g., doing exercises to maintain balance, wearing sensible shoes, keeping good lightening in the house, removing home hazards, and using assistive devices if necessary). -Recommend follow up DXA scan in 2 years on the previous machine. -Recommend additional Reclast infusion in 1 year from previous. Systemic sclerosis with myositis overlap -Sclerodactyly, calcinosis, decrease oral aperture, Raynaud's syndrome -Above clinical manifestations all stable. -Myositis has resolved/not active. -She has fibrosis/ILD, thought to be due to chronic aspiration more so than due to systemic sclerosis -Following with Dr. Bills. Scheduled for follow up. -PFTS, CXR, CT chest stable. Donnie Snow MD Office Visit on 04/18/24 DXA-AXIAL SKELETON BD DXA TRABECULAR BONE SCORE (TBS) COMPREHENSIVE METABOLIC PANEL COMPLETE BLOOD COUNT AND DIFFERENTIAL VITAMIN D 25 HYDROXY CREATINE KINASE/CK CONSULT TO DERMATOLOGY documented in this encounter [facility] 03-29-[address] [facility] 03-29-2024 History of Present illness Narrative SHOULDER INITIAL CONSULT SERVICE DATE: 03/29/2024 PCP: Evan De MD REFERRING PROVIDER: No referring provider defined for this encounter. Consult requested for an opinion regarding the evaluation and treatment of the above. My final impression and recommendations will be communicated back to the requesting physician by way of the shared medical record or letter via [place] mail. CHIEF COMPLAINT: Right shoulder pain SUBJECTIVE HISTORY OF PRESENT ILLNESS: Tennille presents today for initial evaluation regarding chronic right shoulder complaints. As you know she is a 59-year-old igkdd-sgba-pwyowzoj female with complaints in her right shoulder over the last year. She denies a specific trauma or injury before the onset of her symptoms. She notes difficulty with reach activities, lifting activities, overhead activities, and symptoms at night. Treatment to date has consisted of 2 different cortisone injections which have provided relief, but she has had a return of symptoms. She has also been taking oral anti-inflammatories. She presents for further discussion on management. Past medical history is notable for systemic scleroderma, polymyositis, interstitial lung disease, and osteoporosis. She is on 4 mg of prednisone daily for her inflammatory disorders. She is also currently undergoing injections for her osteoporosis. PROGRESSIVE SYMPTOMS: Pain affecting living situation/ADL's Pain impacting sleep or causing fatigue Pain limiting ability to stay fit and healthy, sports or recreational activity Pain worsened by overhead activity/reaching PREVIOUS TREATMENT(S): Modified Activity OTC NSAIDS for Greater Than 3 Months Steroid Injections Right Shoulder NECK COMPLAINTS: None ACTIVE PROBLEM LIST Systemic sclerosis; CREST Degenerative Skin Disorder Unspecified Hypothyroidism Unspecified Disorder of Menstruation and Other Abnormal Bleeding From Female Genital Tract Dub (Dysfunctional Uterine Bleeding) Preop Exam for Internal Medicine Hypothyroidism Polymyositis ([facility]) Raynaud's Syndrome Restrictive lung disease, Acute Productive Cough Urine, Incontinence, Stress Female Uterovaginal Prolapse Sleep Apnea Muscular Deconditioning Summary Adnexal Mass Restless Leg Syndrome Palpitations Healthcare Maintenance Ischemia of Digits of Hand Depression Exacerbation of Asthma Abnormal Sputum Age-Related Osteoporosis Without Current Pathological Fracture Current Chronic Use of Systemic Steroids Fracture of Vertebra Due to Osteoporosis ([facility]) Occipital Neuralgia of Right Side Protein-Calorie Malnutrition ([facility]) Coagulation Defect, Unspecified ([facility]) 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 Vitamin D deficiency PAST SURGICAL HISTORY Procedure Laterality Date APPENDECTOMY ARTHRP ACETBLR/PROX FEM PROSTC AGRFT/ALGRFT right hip DILATION & CURETTAGE DX&/THER NONOBSTETRIC Dilation & curettage LIG/TRNSXJ FLP TUBE ABDL/VAG APPR UNI/BI Tubal ligation MIDLINE INSERTION/CONSULT 08/22/2017 PAST SURGICAL HISTORY OF GI tube PAST SURGICAL HISTORY OF right vascular reconstruction PAST SURGICAL HISTORY OF tracheostomy PAST SURGICAL HISTORY OF removal of calcium deposits from right hand PAST SURGICAL HISTORY OF 2010 Hysterectomy Ovaries Intact FAMILY HISTORY Problem Relation Age of Onset Heart Mother Heart Father Cervical Cancer Sister Alzheimer's Disease Maternal Grandmother Cancer Maternal Grandmother unsure Heart Paternal Grandfather other (negative [Other]) Other negative for breast, ovary or endometrial Social History Tobacco Use Smoking status: Never Smokeless tobacco: Never Vaping Use Vaping status: Never Used Substance Use Topics Alcohol use: Yes Comment: occasionally Drug use: No ALLERGIES Allergen Reactions Fortaz [Ceftazidime] Hives Hives, itching, peeling, Aspirin capillaries break Betadine [Povidone-* Itching Clindamycin Other: See Comments Skin peel, red rash, weight gain, swelling in the face and legs. Itchy. Doxycycline Shortness of Breath, Myalgia Erythromycin Base diarrhea Penicillins Hives Tolerated zosyn 02/09 MEDICATIONS: predniSONE (DELTASONE) 1 mg tablet Take 4 tablets by mouth once daily. tiZANidine (ZANAFLEX) 2 mg tablet Take 2 mg by mouth every 8 hours as needed. rosuvastatin (CRESTOR) 20 mg tablet Take 1 tablet by mouth once daily. PARoxetine (PAXIL) 10 mg tablet Take 10 mg by mouth once daily. triamcinolone acetonide (KENALOG) 0.1 % cream Apply to affected area two times a day. romosozumab-aqqg (EVENITY SUBCUTANEOUS) Inject subcutaneously once every month. rOPINIRole (REQUIP) 0.5 mg tablet Take 0.5 mg by mouth as needed. calcium carbonate (CALCIUM 600 ORAL) Take 100 Units by mouth once daily. unknown dose calcium carbonate (CALCIUM 300 ORAL) Take by mouth. unknown dosage cholecalciferol (VITAMIN D3) 400 unit tab Take by mouth. multivitamin tablet Take by mouth. rOPINIRole (REQUIP) 0.25 mg tablet Take 1 tablet by mouth twice daily. albuterol (PROVENTIL) 2.5 mg /3 mL (0.083 %) nebulizer solution Use 3 mL via nebulizer every 4 hours. sodium chloride 7% solution 7 % nebu Inhale 4 mL as instructed twice daily. sodium chloride 7% solution 7 % nebu Inhale 4 mL as instructed twice daily. Ibuprofen 200 mg cap Take 800 mg by mouth three times daily. levothyroxine (SYNTHROID) 100 mcg tablet Take 1 tablet by mouth daily before breakfast. Nebulizer and Compressor For Neb Bekah 1 Device as needed. Use as directed. REVIEW OF SYMPTOMS: GENERAL: Negative HEENT: Negative CARDIOVASCULAR: Negative RESPIRATORY: Negative GASTROINTESTINAL: Negative GENITOURINARY: Negative NEUROLOGIC: Negative SKIN: Negative ENDOCRINE: Negative EYES: Negative PSYCHIATRIC: Negative HEMATOLOGIC/IMMUNOLOGIC: Negative MUSCULOSKELETAL: See HPI OBJECTIVE Ht 5' .12 (1.53m) Wt 95 lb (43.1kg) LMP 04/12/2010 BMI 18.48 kg/(m^2). PHYSICAL EXAMINATION: Physical examination today of the right shoulder shows no atrophy. Range of motion testing shows: Passive forward elevation is to 90 on the right, compared to 90 on the left. Active forward elevation is to 80 on the right, compared to 80 on the left. Passive external rotation at the side is to 0-10 on the right, compared to 0-10 on the left. Active internal rotation is to the lumbar levels on the right, compared to the lumbar levels on the left. Strength testing of the left rotator cuff shows 5/5 strength with resisted external rotation at the side and 5/5 strength with resisted Andres's maneuver. Strength testing of the right rotator cuff shows 5/5 strength with resisted external rotation at the side and 5/5 strength with resisted Andres's maneuver. There is pain with resisted Andres's maneuver. Lag signs are negative. Belly press testing is negative. There is pain with impingement maneuvers. There is pain at end-range motion. There is tenderness to palpation at the glenohumeral joint line. The right and left upper extremity is otherwise grossly neurovascularly intact to testing. Scapular examination is normal. RADIOGRAPHIC RESULTS: Right Severe Glenohumeral Arthritis X-rays of the right shoulder from 02/21/2024 are available for review and show advanced arthritic change at the glenohumeral joint that does appear to follow an inflammatory wear pattern. There is minimal osteophyte formation but there is significant subchondral cystic change along the humeral head and glenohumeral joint. ASSESSMENT Right shoulder glenohumeral arthritis PLAN DIAGNOSIS: No diagnosis found. I discussed with Tennille that the symptom(s) in her right shoulder are due to glenohumeral arthritis. We reviewed her x-rays which show advanced arthritic change that does appear to follow inflammatory pattern, consistent with her other inflammatory diagnoses. Tennille's symptoms have worsened over time despite nonoperative management. Continued non-operative management would consist of activity modification as needed, oral anti-inflammatories as needed, repeat cortisone injections as needed, and physical therapy. Surgical intervention was discussed in the form of right primary total shoulder arthroplasty and the expected post operative course was discussed at length. We discussed standard and reverse replacement based on the patient's rotator cuff and degree of glenoid bone loss. Given Tennille's potential high risk for acromial stress fracture with a reverse total shoulder arthroplasty related to her inflammatory diagnoses osteoporosis, we also discussed the possibility of hemiarthroplasty for her shoulder if she has rotator cuff deficiency or attenuation that would not allow for standard shoulder replacement. She does understand the possibility of these different options. At this time, due to the failure of non-operative management Tennille would like to proceed with right surgical intervention. We signed surgical consent in the office today and will determine a surgical date. I have ordered a preoperative right shoulder MRI to better evaluate the rotator cuff and glenoid bone loss. Tennille is agreeable to this plan of care. If any questions or concerns arise, she should not hesitate to call. SIGNATURE: Maykel Crow MD PATIENT NAME: Tennille Ortiz DATE: March 29, 2024 TIME: 1:32 PM PAGER: documented in this encounter [facility] 03-01-2024 Telephone encounter Note Images from the original note were not included. Most recent Rheumatology visit: 01/25/2024 (with Chasity Suggs) Last Bone Density on file: 11/08/2022 Rheumatology Care Team: None on file Recent Office Visits - This Specialty 01/25/2024 Systemic scleroderma (HCC) Rheumatology Chasity Suggs PA 10/17/2023 Systemic scleroderma (HCC) Rheumatology Donnie Snow MD 04/20/2023 Age-related osteoporosis without current pathological fracture Rheumatology Sonal Loco PA-C Upcoming Rheumatology Appointments - Next 365 Days Visit Type Date Time Department [facility] 04/18/2024 9:00 AM [facility] MAIN A50 CBC: Latest Ref Rng & Units 10/21/2023 02/03/2024 CBC WBC 3.70 - 11.00 k/uL 7.21 6.32 Hemoglobin 11.5 - 15.5 g/dL 11.5 11.8 Hematocrit 36.0 - 46.0 % 37.5 38.9 Platelet Count 150 - 400 k/uL 195 257 Abs Neut (ANC) 1.45 - 7.50 k/uL 4.90 3.97 Abs Lymph 1.00 - 4.00 k/uL 1.43 1.43 Vitamin D: Latest Ref Rng & Units 01/13/2023 10/21/2023 Vitamin D Vitamin D 25 Hydroxy 31.0 - 80.0 ng/mL 31.8 47.5 LFT: Latest Ref Rng & Units 01/20/2024 02/03/2024 CMP Sodium 136 - 144 mmol/L 139 138 Potassium 3.7 - 5.1 mmol/L 4.9 4.0 Chloride 98 - 107 mmol/L 103 100 CO2 22 - 30 mmol/L 29 30 Glucose 74 - 99 mg/dL 104 86 BUN 7 - 21 mg/dL 11 19 Creatinine 0.58 - 0.96 mg/dL 0.33 0.33 Calcium 8.5 - 10.2 mg/dL 8.6 9.4 AST 13 - 35 U/L 12 ALT 7 - 38 U/L 10 Alkaline Phosphatase 34 - 123 U/L 63 Hepatic Function: Creatinine: Latest Ref Rng & Units 01/20/2024 02/03/2024 Creatinine Creatinine 0.58 - 0.96 mg/dL 0.33 0.33 ESR/CRP: None on file in the last 6 months Uric Acid: None on file in the last 6 months Open Standing (Multiple Instance) Lab Orders Remain Interval Expires Ordered Last Rel. BASIC METABOLIC PNL [SQBMP] 07/07 Every 3 months 04/20/24 04/20/23 01/20/24 Auth. provider: Sonal Murray PA-C Assoc. diagnoses: Medication monitoring encounter Open Future (Single Instance) Lab Orders None [facility] 03-01-2024 Miscellaneous Notes Images from the original note were not included. Most recent Rheumatology visit: 01/25/2024 (with Chasity Suggs) Last Bone Density on file: 11/08/2022 Rheumatology Care Team: None on file Recent Office Visits - This Specialty 01/25/2024 Systemic scleroderma (HCC) Rheumatology Chasity Suggs PA 10/17/2023 Systemic scleroderma (HCC) Rheumatology Donnie Snow MD 04/20/2023 Age-related osteoporosis without current pathological fracture Rheumatology Sonal Loco PA-C Upcoming Rheumatology Appointments - Next 365 Days Visit Type Date Time Department [facility] 04/18/2024 9:00 AM [facility] MAIN A50 CBC: Latest Ref Rng & Units 10/21/2023 02/03/2024 CBC WBC 3.70 - 11.00 k/uL 7.21 6.32 Hemoglobin 11.5 - 15.5 g/dL 11.5 11.8 Hematocrit 36.0 - 46.0 % 37.5 38.9 Platelet Count 150 - 400 k/uL 195 257 Abs Neut (ANC) 1.45 - 7.50 k/uL 4.90 3.97 Abs Lymph 1.00 - 4.00 k/uL 1.43 1.43 Vitamin D: Latest Ref Rng & Units 01/13/2023 10/21/2023 Vitamin D Vitamin D 25 Hydroxy 31.0 - 80.0 ng/mL 31.8 47.5 LFT: Latest Ref Rng & Units 01/20/2024 02/03/2024 CMP Sodium 136 - 144 mmol/L 139 138 Potassium 3.7 - 5.1 mmol/L 4.9 4.0 Chloride 98 - 107 mmol/L 103 100 CO2 22 - 30 mmol/L 29 30 Glucose 74 - 99 mg/dL 104 86 BUN 7 - 21 mg/dL 11 19 Creatinine 0.58 - 0.96 mg/dL 0.33 0.33 Calcium 8.5 - 10.2 mg/dL 8.6 9.4 AST 13 - 35 U/L 12 ALT 7 - 38 U/L 10 Alkaline Phosphatase 34 - 123 U/L 63 Hepatic Function: Creatinine: Latest Ref Rng & Units 01/20/2024 02/03/2024 Creatinine Creatinine 0.58 - 0.96 mg/dL 0.33 0.33 ESR/CRP: None on file in the last 6 months Uric Acid: None on file in the last 6 months Open Standing (Multiple Instance) Lab Orders Remain Interval Expires Ordered Last Rel. BASIC METABOLIC PNL [SQBMP] / Every 3 months 04/20/24 04/20/23 01/20/24 Auth. provider: oSnal Murray PA-C Assoc. diagnoses: Medication monitoring encounter Open Future (Single Instance) Lab Orders None documented in this encounter [facility] 01-25-2024 Instructions Chasity Suggs PA - 01/25/2024 5:41 PM EDT Dear Tennille, It was a pleasure seeing you in [facility]'s rheumatology office today. LABS: Please get your labs (blood work) done on the 1st floor today (or at any [facility] laboratory). No appointment is needed for this. MEDICATIONS/INTERVENTIONS: Please continue your current medications. You may try alternating Tylenol with ibuprofen. Maximum daily dose of Tylenol is 3,000 mg per 24 hours. I also recommend that you start applying a generous amount of diclofenac (Voltaren) gel to your right shoulder 4 times per day. Although systemic absorption (i.e., absorption into the bloodstream) is extremely minimal (2-4%) due to the topical nature of the medication, I recommend staying well-hydrated while using this medication just to be extra safe from a kidney health standpoint. You may use a Trellie coupon to bring the schmidt down of your diclofenac (Voltaren) gel (and potentially other prescriptions as well). (There is a Trellie genna that you can download on your phone.) Here is the website to Trellie: https://www.Pandoodle/ Raynaud's phenomenon often can be managed exclusively with lifestyle modification. Certain measures may be adopted to help prevent and terminate Raynaud s attacks. The following measures can reduce the frequency, severity, and duration of attacks: Avoiding cold temperatures and temperature fluctuations Alleviating stress Adopting measures to keep the body warm, including adequate clothing (eg, using multiple layers and wearing thermal underwear and a warm hat Keeping the fingers warm (e.g., by using mittens or electric hand warmers instead of gloves) Placing the hands under warm water or rotating the arms in a windmill pattern may help abort Raynaud s attacks A calcium channel lui, such as Nifedipine (Procardia XL) 30 mg or Amlodipine (Norvasc) 2.5 mg tablet daily, for intractable Raynaud's phenomenon, especially during the winter months. Both active and passive smoking should be avoided to help minimize the vasoconstrictive effects of tobacco. Sympathomimetic drugs (eg, decongestants, stimulants, and anorexiants) should also be avoided. [ For further information, please refer to this link: [email or web address] ] FOLLOW-UP: Please attend your follow-up with Dr. Snow in July 2024. You can contact Rheumatology scheduling at [phone], , or [phone]. Please feel free to reach me through [employer] (or telephone) with any questions or concerns. Please let us know if your Raynaud's worsens. Please continue to follow with Orthopaedics and Pulmonary Medicine. Kind regards, Chasity Suggs PA-C documented in this encounter [facility] 01-25-[address] [facility] 01-25-2024 History of Present illness Narrative Images from the original note were not included. Osteoporosis and Metabolic Bone Disease Referred by: No ref. provider found Date of Service: 01/25/2024 Patient: Tennille Ortiz Medical Record: [id number] Primary Care Physician: Evan De MD Last Rheumatology visit: 10/17/2023 (with Donnie Snow) Some of the elements of the note have been extracted from previous Rheumatology progress notes. All the information has been reviewed carefully and updated as needed. History of Present Illness Chief Complaint: No chief complaint on file.. Previous Medications: Reclast (2017) Evenity (01/2023-01/2024) methotrexate Current Medications: Reclast prednisone 4 mg daily x 10+ years Tennille Ortiz is a 58 year old female with a past medical history significant for scleroderma/myositis overlap (with ILD, sclerodactyly, acroosteolysis, and calcinosis) (Dx 1988), osteoporosis, T6-T7 compression fracture, chronic prednisone use (4 mg daily x 10+ years), hx right knee and hip replacements, asthma, adnexal mass, hypothyroidism, depression, and RLS, who presents on 10/17/2023 for in-person visit for osteoporosis evaluation. HISTORY OF PRESENT ILLNESS Past medical history of scleroderma/myositis overlap (presence of ILD, sclerodactyly, acroosteolysis with severe contractures, calcinosis) and osteoporosis (only once Reclast in 2016 then lost to follow up) and chronic prednisone 4 mg. Presents as a new patient to Dr. Snow but patient has previously followed with Dr. Fuentes until 2019 and lost to follow-up. Most recent bone density scan in November 2022 showing lowest T score -4.1 in L femoral neck. She has been having steady decline in BMD in 2014 and 2016 and 2022 DXA scans. She had one-time zoledronic acid ordered by Dr. Fuentes in 2016 however patient lost to follow-up since then. She had a one-time fragility fracture in 2021 has compression fracture of her T6-T7 vertebrae. Her scleroderma and myositis has not been followed by any occup therapist since the last follow-up with Dr. Fuentes and she has been taking prednisone 4 mg as maintenance therapy at least 10 years. Recap of her scleroderma and myositis history: Scleroderma without truncal involvement, presence of ILD and severe restrictive lung disease (moderately reduced DLCO and reduced TLC). Also calcinosis, sclerodactyly, severe contractures in her fingers limiting her life with fine motor movements. Lost to follow-up with Dr. Fuentes and [place]. Myositis diagnosis in 1988; last flare 1998. Treated with prednisone and methotrexate. INTERVAL HISTORY -Tennille Ortiz is a 58 year old woman with a PMH of asthma, adnexal mass, hypothyroidism, depression, RLS who presents to follow up for scleroderma (since 1988), myositis (since 1988), and OP. -She is on Evenity, started 01/2023. No issues with the Evenity that she has noticed. No falls or fractures. She confirms that she is supplementing vitamin D and calcium. -She has had some issues since the last visit. She came down with flu B and was seen in the ED. She notes that the tourniquet was too tight for an extended period of time with multiple blood draw attempts. It was thought that she had a tendon issue. She had a steroid injection in the biceps tendon sheath with ortho which helped her pain somewhat. She is avoiding blood draws in the R arm. -She reports she had cellulitis in the R arm. She was treated 2 rounds of bactrim and also levaquin. She is also treating with steroid cream. It has improved and decreased to a smaller area. It is no longer warm. -She had a R occipital nerve block with Dr. Awad. -She also has a long standing history of limited scleroderma and myositis which she states is stable. She takes prednisone 4mg daily for maintenance. -She saw Dr. Bills (pulmonary): ILD thought to be due to aspiration (and not due to systemic sclerosis), she does have fibrosis (not currently treating), and restrictive lung disease. -Patient states that she takes ibuprofen daily for neck pain. Takes 600mg BID. She denies GERD and is not on a PPI -GI suggested EGD to evaluate for kaplan's , erosive disease, stricture but patient deferred -Patient has raynaud's but no ulcers. She states she had gangrene once which happened after a procedure of that area. She is not on medication for management of raynaud's -TTE from 05/2023 showed improved RVSP. -Patient endorses weakness, dysphagia, dyspnea but states nothing it more than her usual -She will be moving on Tuesday to a house all on one level. Interval History 01/25/2024: She presents today for follow-up of scleroderma/myositis overlap (with ILD, sclerodactyly, acroosteolysis, and calcinosis) (Dx 1988) and osteoporosis. She completed 1-year course of Evenity and subsequently received a dose of Reclast on 01/16/2024. Tolerated it well. Previous Osteoporosis Medications: Reclast (2016), Evenity (01/2023-01/2024) Current Osteoporosis Medications: Reclast (01/16/2024) Hx of falls: -12 years ago, slipped on a wooden floor. Did have a concussion, but no associated fractures. Hx of fractures: -04/2022 ,fractured T6 and T7 after a fall in her bathroom. ~2021, fractured left knee after falling on ice. Dietary calcium: 521 mg (yogurt, ice-cream, cheese, macaroni and cheese). Also, drinks 1 Premier banana drink (which contains 650 mg). Supplemental calcium: 2 chewables/day (serving size: 2 chewables contains 500 mg tricalcium phosphate and 1,000 IU of vitamin D); does not take consistently. Supplemental vitamin D: 2,000 IU daily designated supplement + 1,000 IU daily (within calcium supplement); does not take consistently. MVI: Yes Duration patient taking above medication(s): 1+ years. Hx of nephrolithiasis: Yes; ~30 years ago. 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 Also, hx skin cancer s/p cryotherapy a couple years ago. Jaw/thigh pain: chronic bilateral jaw pain. No thigh pain. Dentistry: Last saw a dentist many years ago. States that she has had issues with going to the dentist due to inability to open her mouth very wide 2/2 her chronic bilateral jaw pain. Also has narrowed oral aperture from scleroderma. FRAX Risk Factors Fracture: Yes Parent with hip fracture: No Current Smoker: No Glucocorticoid use: prednisone 4 mg daily x at least 10 years. Rheumatoid Arthritis: No Secondary osteoporosis (T1DM, OI/Osteodystrophy, Hyperthyroidism, Early Menopause < 45 yo, Chronic Malnutrition, Malabsorption, Chronic Liver Disease): Yes; Chronic malnutrition has worsened progressively ever since started having jaw problems. 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 She lives in [place], [place] alone. Has 2 grown children. She is currently on disability. 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 Tobacco: Briefly smoked in [employer]. Also, ex- and father were smokers. ETOH: Rarely. No hx of heavy drinking. Caffeine: coffee (1-2 cups/day) Denies any GERD. Dysphagia has been stable. Raynaud's has been stable. Reports a lesion on the dorsal PIP of right 4th digit that is tender. Reports diffuse calcinosis, especially in her fingers. Has one on right hip bone, 1 behind left knee. Denies any hx of teliengectasias. She reports generalized muscle weakness; lower extremities > lower extremities. Myalgias:right bicep. Arthralgias: neck, shoulders, right elbow. Neck is reportedly fused at 2 spots. Has received steroid injections with relief in her neck pain. Reports hx of left ankle swelling and pain that started a couple weeks ago that all but resolved within ~1 week. Has reportedly has been diagnosed with superficial blood clots in left lower leg. Previously, used to get many of these ulcers but then received alprostadil in 08/2017, prescribed by Dr. Fuentes, with resolution of all her ulcers. Hasn't had recurrence of this until 2 years ago with current lesion. Applies steroid ointment sometimes, which she thinks helps. She has Spirometry scheduled for ~05/2024. She has right shoulder pain; her right arm is in a sling. She states that she needs a right shoulder replacement. Has an appt 03/15/2024 to see orthopaedic surgeon. Has been taking ibuprofen 4 pills TID PRN. Has not been applying any topical pain relievers. Tries not to take tizanidine because it just makes her sleep and exacerbates her RLS. Reports hx of right knee and right hip replacement. Rheum/Ortho Arthrocentesis Injections (last 5) 11/30/2023 14:09 Injection History Medication 6 mg betamethasone acetate-betamethasone sodium phosphate 6 mg/mL Location shoulder Shoulder Site R shoulder joint Pertinent Prior Office Visits: 10/17/2023 Rheumatology (Dr. Snow) A&P: Osteoporosis -Reviewed available DXA and labs. -She is currently on Evenity and tolerating without any side effects. She is scheduled to finish this in December. -Recommend consolidation with Reclast. She received this in the past without any side effects. -Recommend obtaining additional labs as ordered below. -Will order Reclast and plan for one month after completing Evenity. -I recommend vitamin D at a dose of 800 -1,000 international unit(s) QD if vitamin D is in the normal range; this will be adjusted if vitamin D is low -Additionally recommend calcium at a dose of 5451-8695 mg QD in divided doses. If not obtained through the diet, recommend adding a calcium supplement as needed. -Other measures to prevent and treat osteoporosis and its complications are also recommended and have been discussed during this visit. Those include practicing aerobic exercise, limiting the intake of alcohol, and preventing falls (e.g., doing exercises to maintain balance, wearing sensible shoes, keeping good lightening in the house, removing home hazards, and using assistive devices if necessary). 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 Bills. Scheduled for follow up. -PFTS and CXR stable -Consider high res CT chest. Ordered today. Biceps tendonitis -Recommend referral to Dr. Mckeon/tam for further evaluation. Disease History TREATMENT HISTORY Osteoporosis - Antiresorptive Treatments Treatment Start Date Stop Date Stop Reason Comment Zoledronic acid 2016 2017 pt choice 1 year only Osteoporosis - Anabolic Treatments Treatment Start Date Stop Date Stop Reason Comment Evenity 01/2023 Prednisone Treatments Treatment Start Date Stop Date Stop Reason Comment Prednisone 4 mg 1989 at least for the past 10-20 years taking 4 mg, before that higher, but always took steroids Osteoporosis History Patient has a history of fracture(s) (Comment: T6 and T7) Vertebral Fracture Date: 04/2022 Age: 57 (Comment: R knee after mechanical fall slipping on ice, non fragility) L Shoulder and R knee fracture, nonfragility Most Recent BMD Date: 11/08/22 LS: 0.859 g/cm2 Hip - Left: 0.471 g/cm2 LS T-Score: -2.7 LS Z-Score: -1.6 decrease L Hip T-Score: -4.1 L Hip Z-Score: -2.9 decrease Unavailable Daily Calcium diet: 450 mg Daily Calcium supplementation: (Comment: doesn't recall dose, however does not take consistently) Daily Vitamin D: 1000 IU Current Multivitamin: Yes Dental: Broken teeth, cannot open her mouth No extraction planned. Link to FRAX Website RISK FACTORS Osteoporosis FRAX Risk Factors Fracture(s) (Comment: T6 and T7) Vertebral Fracture Date: 04/2022 Age: 57 (Comment: R knee after mechanical fall slipping on ice, non fragility) L Shoulder and R knee fracture, nonfragility No family history of osteoporosis No parent with a hip fracture Not a current smoker Glucocorticoid use (Comment: 4 mg, since age of 24; at least 10 years she is taking 4 mg) Current use No rheumatoid arthritis Secondary osteoporosis No hyperthyroidism Chronic malnutrition No alcohol use more than 3 units per day Osteoporosis Medication Risk Factors No use of Anti-convulsants No use of Aromatase inhibitors No use of Furosemide No use of Proton pump inhibitor No use of Thyroid hormone with oversuppression No use of exterminator helper 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 heparin use Other high risk medication for bone loss Overall med risk factors - additional details: chronic steroids Osteoporosis Disease-Specific Risk Factors Weight < 127 lbs Height loss 1 inch 10 years Fall history Fall Date Description / Comment April 2022 from standing height Eating Disorder (Comment: cannot open her mouth due to SSc) No hyperparathyroidism No history of hypercalciuria Renal calculi (Comment: many years ago) No CKD Caffeine intake: 1-3 c/day Exercise routine: no regular exercise program Social History Tobacco Use Smoking status: Never Smokeless tobacco: Never Vaping Use Vaping Use: Never used Substance Use Topics Alcohol use: Yes Comment: occasionally Drug use: No WOMEN / ESTROGEN Age of Menarche: 11 years Menopause status: post-menopausal Type of Menopause: surgical Age of Menopause: 45 years Previous estrogen use: none Hysterectomy: Yes Hysterectomy age: 45 years Ovaries: intact Breast cancer: No Family history of breast cancer: No OB History 3 Para 2 Term 2 0 AB 1 Living 2 SAB 1 IAB 0 Ectopic 0 Multiple 0 Live Births Review of Systems Review of Systems CONSTITUTION: Negative for: Fever and Recent weight change HEENT: Positive for: Trouble swallowing (chronic; stable) and Dry mouth (x years; not daily) Negative for: Nosebleeds and Mouth sores RESPIRATORY: Positive for: Cough Negative for: Shortness of breath, Pain with breathing and Coughing up blood GASTROINTESTINAL: Negative for: Melena, Diarrhea, Heartburn and Abdominal pain MUSCULOSKELETAL: Positive for: Arthralgias, Myalgias, Muscle weakness, Joint swelling (intermittently in L ankle with assoc pain x a few years) and Morning Joint Stiffness NEUROLOGICAL: Positive for: Headaches (x a couple months; ever since recent neck and R shoulder discomfort have recently worsened) Negative for: Numbness and Memory loss SKIN: Negative for: Rash, Skin changes, Hair loss and Nail changes EYES: Negative for: Eye pain, Eye redness, Eye dryness and visual disturbance CARDIOVASCULAR: Negative for: Chest pain and Leg swelling GENITOURINARY: Negative for: Dysuria and Hematuria HEMATOLOGIC/LYMPHATIC: Negative for: Swollen glands Jaw pain: chronic bilateral jaw pain Thigh pain? No All other reviewed and negative other than HPI. Past Medical History 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 Vitamin D deficiency Past Surgical History PAST SURGICAL HISTORY Procedure Laterality Date APPENDECTOMY ARTHRP ACETBLR/PROX FEM PROSTC AGRFT/ALGRFT right hip DILATION & CURETTAGE DX&/THER NONOBSTETRIC Dilation & curettage LIG/TRNSXJ FLP TUBE ABDL/VAG APPR UNI/BI Tubal ligation MIDLINE INSERTION/CONSULT 08/22/2017 PAST SURGICAL HISTORY OF GI tube PAST SURGICAL HISTORY OF right vascular reconstruction PAST SURGICAL HISTORY OF tracheostomy PAST SURGICAL HISTORY OF removal of calcium deposits from right hand PAST SURGICAL HISTORY OF 2010 Hysterectomy Ovaries Intact Family History FAMILY HISTORY Problem Relation Age of Onset Heart Mother Heart Father Cervical Cancer Sister Alzheimer's Disease Maternal Grandmother Cancer Maternal Grandmother unsure Heart Paternal Grandfather other (negative [Other]) Other negative for breast, ovary or endometrial Social History Social History Tobacco Use Smoking status: Never Smokeless tobacco: Never Vaping Use Vaping Use: Never used Substance Use Topics Alcohol use: Yes Comment: occasionally Drug use: No Allergies ALLERGIES Allergen Reactions Fortaz [Ceftazidime] Hives Hives, itching, peeling, Aspirin capillaries break Betadine [Povidone-* Itching Clindamycin Other: See Comments Skin peel, red rash, weight gain, swelling in the face and legs. Itchy. Doxycycline Shortness of Breath, Myalgia Erythromycin Base diarrhea Penicillins Hives Tolerated zosyn 02/09 Current Medications Present Osteoporosis Medications: Current Anabolic Medications Bone Formation Agents - Sclerostin Inhibitor, Monoclonal Antibody Start End romosozumab-aqqg (EVENITY SUBCUTANEOUS) -- Sig - Route: Inject subcutaneously once every month. - SUBCUTANEOUS Class: Historical Med Current Calcium, Multivitamin, and Vitamin D Use on File Minerals and Electrolytes - Calcium Replacement Start End calcium carbonate (CALCIUM 600 ORAL) -- Sig - Route: Take 100 Units by mouth once daily. unknown dose - ORAL Class: Historical Med calcium carbonate (CALCIUM 300 ORAL) -- Sig - Route: Take by mouth. unknown dosage - ORAL Class: Historical Med Vitamins - D Derivatives Start End cholecalciferol (VITAMIN D3) 400 unit tab -- Sig - Route: Take by mouth. - ORAL Class: Historical Med Multivitamins Start End multivitamin tablet -- Sig - Route: Take by mouth. - ORAL Class: Historical Med Current Outpatient Medications Medication Sig predniSONE (DELTASONE) 1 mg tablet Take 4 tablets by mouth once daily. tiZANidine (ZANAFLEX) 2 mg tablet Take 2 mg by mouth every 8 hours as needed. rosuvastatin (CRESTOR) 20 mg tablet Take 1 tablet by mouth once daily. triamcinolone acetonide (KENALOG) 0.1 % cream Apply to affected area two times a day. romosozumab-aqqg (EVENITY SUBCUTANEOUS) Inject subcutaneously once every month. rOPINIRole (REQUIP) 0.5 mg tablet Take 0.5 mg by mouth as needed. calcium carbonate (CALCIUM 600 ORAL) Take 100 Units by mouth once daily. unknown dose calcium carbonate (CALCIUM 300 ORAL) Take by mouth. unknown dosage cholecalciferol (VITAMIN D3) 400 unit tab Take by mouth. multivitamin tablet Take by mouth. rOPINIRole (REQUIP) 0.25 mg tablet Take 1 tablet by mouth twice daily. albuterol (PROVENTIL) 2.5 mg /3 mL (0.083 %) nebulizer solution Use 3 mL via nebulizer every 4 hours. sodium chloride 7% solution 7 % nebu Inhale 4 mL as instructed twice daily. sodium chloride 7% solution 7 % nebu Inhale 4 mL as instructed twice daily. Ibuprofen 200 mg cap Take 800 mg by mouth three times daily. levothyroxine (SYNTHROID) 100 mcg tablet Take 1 tablet by mouth daily before breakfast. Nebulizer and Compressor For Neb Bekah 1 Device as needed. Use as directed. PARoxetine (PAXIL) 10 mg tablet Take 10 mg by mouth once daily. No current facility-administered medications for this visit. Health Maintenance Current Immunizations Reviewed on 01/25/2024 Name Date influenza (IIV3) vaccine 05/25/2021 , 02/20/2017 , 04/19/2014 influenza (IIV4) vaccine 04/20/2023 , 05/25/2021 influenza (LAIV) vaccine 03/06/2012 influenza vaccine 03/06/2012 pneumococcal (PCV13) vaccine 08/27/2019 pneumococcal (PCV7) vaccine 1965 Patient-Entered Data PAIN EVALUATION 01/23/2024 1947 01/25/2024 1557 Pain Level: 9 9 shoulder neck back join Pain Location: Shoulder-Right -- Description: Aching;Radiating;Sore;Tenderness; Throbbing Sharp;Aching;Pulsating Duration Amount of Time: 24 -- Duration Units: Hours -- Frequency: Continuous Continuous Intervention/Comfort measure: Reposition;Positioning -- PROMIS Assessments 10/11/2023 11/28/2023 01/23/2024 PROMIS Assessments Physical Health Percentile 10 Mental Health Percentile 13 Pain Score 2 Pain Interference Percentile 1 1 Fatigue Percentile 18 46 Physical Function Percentile 1 1 0 RAPID 3 [place] Activities of Daily Living 01/23/2024 7:52 PM 10/11/2023 9:16 AM 04/19/2023 8:51 PM First answer obtained - 01/10/2023 8:20 PM Dress self? UNABLE to do With MUCH difficulty With MUCH difficulty With MUCH difficulty Get in and out of bed? With SOME difficulty With SOME difficulty With SOME difficulty With SOME difficulty Walk outdoors? With MUCH difficulty With SOME difficulty With SOME difficulty With SOME difficulty Wash and dry body? UNABLE to do With SOME difficulty With MUCH difficulty With MUCH difficulty Get in and out of car? With SOME difficulty With SOME difficulty With SOME difficulty With SOME difficulty RAPID 3 Disease Activity Weighed Score Levels: 0 - 1: Near Remission 1.3 - 2.0: Low Severity 2.3 - 4.0: Moderate Severity 4.3 - 10.0: High Severity 04/19/2023 10/11/2023 01/23/2024 RAPID-3 Weighed Score RAPID 3 Weighed Score 6.44 (High severity ) 6.61 (High severity ) 8.33 (High severity ) PHQ-9 0 - 4: Minimal Depression 5 - 9: Mild Depression 10 - 14: Moderate Depression 15 - 19: Moderately Severe Depression 20 - 27: Severe Depression 12/07/2022 02/17/2023 11/28/2023 PHQ-9 PHQ-2 Score 4 5 4 PHQ-9 Score 11 11 10 Physical Exam BP 119/54 Pulse 73 Temp 36.8 C (98.3 F) (Temporal) Ht 152.7 cm (5' 0.12) Wt 43.5 kg (95 lb 14.4 oz) LMP 04/12/2010 BMI 18.66 kg/m General: No acute distress. Not ill-appearing, toxic, or diaphoretic. Integumentary: Warm, Dry. No erythema, bruising, or rash. No areas of alopecia appreciated. Eye: PEARRL, EOMI. Normal conjunctiva. No scleral icterus. HENT: Normocephalic and atraumatic. Moist oral mucosa. No oral ulcerations. Neck: Supple. No lymphadenopathy Respiratory: Respirations non-labored. Lungs clear to auscultation bilaterally. No rales, rhonchi, or wheezes. Cardiovascular: Regular rhythm and rate. Gastrointestinal: Soft, nontender, and nondistended. No guarding. Musculoskeletal: Spine - Midthoracic midline spine tenderness. Scoliosis present Shoulders - Significantly limited ROM bilaterally. Significant pain elicited with passive right shoulder ROM. 5/5 strength. No deformities. Negative impingement signs. Hands - FROM. 5/5 pulley man strength. Significant deformities with severe contractures of hands and fingers bilaterally. Neurologic: Alert and oriented. Normal gait. No focal deficit. Cranial nerves II-XII grossly intact. Psychiatric: Cooperative. Mood normal. Behavior normal. Thought content normal. Judgment normal. 01/25/2024 12/16/2023 11/30/2023 11/18/2023 10/21/2023 Weight Weight 95 lb 14.4 oz 96 lb 96 lb 96 lb 95 lb 01/25/2024 01/16/2024 12/16/2023 11/18/2023 11/10/2023 Blood Pressure Systolic 119 97 102 97 112 Diastolic 54 62 67 54 68 Labs Bone Labs: TSH Free T4 Vitamin D 25 Hydroxy PTH, Intact Cross-Link N-telopeptide C Telopeptide, Beta Procollagen Type 1 Latest Ref Rng 0.270 - 4.200 uU/mL 0.9 - 1.7 ng/dL 31.0 - 80.0 ng/mL 15 - 65 pg/mL 14.4 - 75.0 nM/mM Creat pg/mL ug/L 11/17/2004 3.320 08/03/2005 8.580 ! 07/19/2007 2.930 1.0 09/22/2007 11.5 (L) (C) 03/22/2008 19.5 (L) (C) 19 05/02/2009 21.3 (L) 10/29/2009 40.3 01/05/2011 5.350 03/07/2012 20.7 (L) 12/03/2014 12.800 (H) 27.4 (L) 12/31/2016 17.3 (L) 03/04/2017 79.2 (H) 03/08/2017 22.3 (L) 07/29/2017 61.7 08/23/2017 8.290 (H) 08/24/2017 1.0 10/09/2018 41.9 10/12/2018 69.9 02/08/2021 2.060 1.1 3.760 01/13/2023 31.8 29 277 47 10/21/2023 47.5 -10/2023 No cytopenias. -01/20/2024 SCr, serum calcium, and LFTs WNL. Latest Ref Rng & Units 02/23/2021 02/24/2021 04/20/2023 10/21/2023 CBC WBC 3.70 - 11.00 k/uL 8.49 6.74 9.40 7.21 RBC 3.90 - 5.20 m/uL 2.69 2.80 4.57 4.02 Hemoglobin 11.5 - 15.5 g/dL 8.1 8.4 13.3 11.5 Hematocrit 36.0 - 46.0 % 26.8 27.7 42.7 37.5 MCV 80.0 - 100.0 fL 99.6 98.9 93.4 93.3 MCH 26.0 - 34.0 pg 30.1 30.0 29.1 28.6 MCHC 30.5 - 36.0 g/dL 30.2 30.3 31.1 30.7 RDW-CV 11.5 - 15.0 % 18.5 18.5 14.4 15.3 Platelet Count 150 - 400 k/uL 410 404 318 195 MPV 9.0 - 12.7 fL 10.9 10.3 11.2 10.5 Baso% % 0.4 Abs Neut (ANC) 1.45 - 7.50 k/uL 4.90 Abs Lymph 1.00 - 4.00 k/uL 1.43 Abs [place] <0.87 k/uL 0.64 Abs Eosin <0.46 k/uL 0.20 Abs Baso <0.11 k/uL 0.03 NRBC /100 WBC 0.0 Latest Ref Rng & Units 07/29/2023 10/17/2023 10/21/2023 01/20/2024 CMP Sodium 136 - 144 mmol/L 137 140 138 139 Potassium 3.7 - 5.1 mmol/L 4.1 4.4 4.1 4.9 Chloride 98 - 107 mmol/L 101 100 102 103 CO2 22 - 30 mmol/L 29 32 26 29 Glucose 74 - 99 mg/dL 93 124 74 104 BUN 7 - 21 mg/dL 13 11 14 11 Creatinine 0.58 - 0.96 mg/dL 0.38 0.35 0.31 0.33 Calcium 8.5 - 10.2 mg/dL 9.2 9.5 9.3 8.6 AST 13 - 35 U/L 8 ALT 7 - 38 U/L 7 Alkaline Phosphatase 34 - 123 U/L 62 Latest Ref Rng & Units 07/29/2023 10/17/2023 10/21/2023 01/20/2024 Creatinine Creatinine 0.58 - 0.96 mg/dL 0.38 0.35 0.31 0.33 Latest Ref Rng & Units 02/21/2021 02/22/2021 02/23/2021 02/24/2021 Magnesium Magnesium 1.7 - 2.3 mg/dL 1.8 1.9 1.9 1.8 Latest Ref Rng & Units 07/29/2023 10/17/2023 10/21/2023 01/20/2024 eGFR EGFR >=60 mL/min/1.73m 116 118 121 119 CrCl: CrCl cannot be calculated (Unknown ideal weight.). Latest Ref Rng & Units 07/29/2023 10/17/2023 10/21/2023 01/20/2024 Calcium Calcium 8.5 - 10.2 mg/dL 9.2 9.5 9.3 8.6 Latest Ref Rng & Units 02/23/2021 02/24/2021 01/13/2023 10/21/2023 Alkaline Phosphatase Alkaline Phosphatase 34 - 123 U/L 166 177 72 72 62 Alkaline Phosphatase 34 - 123 U/L 166 177 72 72 62 Latest Ref Rng & Units 12/03/2014 08/23/2017 02/08/2021 02/08/2021 TSH TSH 0.270 - 4.200 uU/mL 12.800 8.290 2.060 3.760 Latest Ref Rng & Units 07/29/2017 10/09/2018 01/13/2023 10/21/2023 Vitamin D Vitamin D 25 Hydroxy 31.0 - 80.0 ng/mL 61.7 41.9 31.8 47.5 Latest Ref Rng & Units 02/23/2021 02/24/2021 01/13/2023 10/21/2023 Protein, Total PTH, Intact 15 - 65 pg/mL 29 Protein, Total 6.3 - 8.0 g/dL 6.8 7.2 6.9 7.0 Latest Ref Rng & Units 02/23/2021 02/24/2021 01/13/2023 10/21/2023 Albumin Albumin 3.9 - 4.9 g/dL 3.4 3.5 4.1 3.7 Latest Ref Rng & Units 03/22/2008 01/13/2023 PTH PTH, Intact 15 - 65 pg/mL 19 29 Latest Ref Rng & Units 03/07/2013 03/08/2013 02/08/2021 02/09/2021 Hepatitis Screen Hep A Ab, IgM Negative Negative Negative Hep B Core Ab, IgM Negative Negative Negative Hep B Core Ab, Total NEGAT Negative Hep B Surf Ab Qual NEGAT Negative Hepatitis E Ab, IgM Negative Negative Hep C Antibody IA NEGAT Negative HBsAg Negative Negative Negative Negative Imaging BONE DENSITY RESULTS Last Bone Density DXA-AXIAL SKELETON Exam End: 11/08/2022 2:10 PM (Final result) Narrative: * * *Final Report* * * DATE OF EXAM: Nov 08 2022 2:10PM [facility] 0804 - BD DXA - AXIAL SKELETON -NB / PROCEDURE REASON: Osteoporosis without current pathological fracture, unspecified osteoporosis typ * * * * Physician Interpretation * * * * EXAMINATION: DXA BONE DENSITOMETRY BD DXA - AXIAL SKELETON -NB CLINICAL HISTORY: DIAGNOSTIC Osteoporosis without current pathological fracture, unspecified osteoporosis type . DXA Model: Alloy Digital (S/N: [id number]) SITE SCANNED: Lumbar spine, left hip Date Scanned: 11/08/2022 2:10 PM RESULT: Lumbar spine (L1-L4): 0.859 g/cm2, T-score -2.7, Z-score -1.6 Lumbar spine: 2016: 0.975 g/cm2 Lumbar spine: 2014: 1.095 g/cm2 Lumbar spine change: -0.116 g/cm2, -11.9 %, significant decrease Left Femoral Neck: 0.471 g/cm2, T-score -4.1, Z-score -2.9 Left Femoral Neck: 2017: 0.550 g/cm2 Left Femoral Neck: 2014: 0.623 g/cm2 Left Femoral Neck Change: -0.079 g/cm2, -14.4 %, significant decrease Left Total Hip: 0.514 g/cm2, T-score -3.9, Z-score -3.1 Left Total Hip: 2016: 0.649 g/cm2 Left Total Hip: 2014: 0.713 g/cm2 Left Total Hip change: -0.135 g/cm2, -20.8 %, significant decrease Impression: IMPRESSION: THE LOWEST T-SCORE IS -4.1 IN THE LEFT HIP DIAGNOSIS: Osteoporosis Spine: Decreased bone mass in spine. Hip: Decreased bone mass in hip. FRACTURE RISK: very high risk RISK FACTORS: This patient is a 57 years Female. MENSTRUAL STATUS: She reports menstrual status of post-menopausal, menopause at age The patient reports the following risk factors associated with low bone mass or increased fracture risk: - previous fracture: left knee - low body weight <127 pounds - current steroid therapy The patient reports the following: - vitamin D intake - no calcium supplement, possible low calcium intake RECOMMENDATIONS: [facility] GUIDELINES: Postmenopausal women and men age 50 and older presenting with the following should be treated: -T-score < -2.5 at the femoral neck or spine after appropriate evaluation to exclude secondary causes Based on the patient age, bone density and risk factors: - the patient has had a significant decline in bone mass, careful follow up is recommended. Secondary causes for bone loss should be considered with appropriate lab testing. - pending workup, treatment would be indicated, but clinical correlation is required. - treatment with an anabolic agent, Forteo, Tymlos or Evenity should be considered. - the patient should take calcium, the recommended dose is 6970-3296 mg per day along with 800-1000 IU vitamin D (some patients may require higher doses of vitamin D). LIMITATIONS: - Steroid therapy may increase fracture risk independent of bone mass. FOLLOW-UP: Recommended in 1 year if on steroids ccEulalia Stevens PA-C Director Of Marketing Operations: HAYLEE Transcribe Date/Time: Nov 08 2022 2:50P Dictated by : REY FUENTES MD This examination was interpreted and the report reviewed and electronically signed by: REY FUENTES MD on Nov 08 2022 5:04PM EST BONE DENSITY RESULTS: EXTERNAL Last XR Lumbar Spine - Impression Only LUMBAR AP / LAT / L5-S1 Collected: 01/06/2001 3:14 PM (Final result) Last XR Thoracic Spine - Impression Only XR THORACIC GENERAL 3V AP/LAT/SWIMMERS Exam End: 12/10/2022 11:31 AM (Final result) Impression: IMPRESSION: Unchanged T6 compression fracture. Mild degenerative changes. ... Last CT Lumbar Spine - Impression Only No resulted procedures found. Last CT Thoracic Spine - Impression Only CT THORACIC SPINE WO IVCON Exam End: 04/22/2022 12:54 PM (Final result) Last MRI Lumbar Spine - Impression Only No resulted procedures found. Last MRI Thoracic Spine - Impression Only MRI THORACIC SPINE WO IVCON Exam End: 01/10/2023 2:49 PM (Final result) Impression: IMPRESSION: Chronic benign 70% compression fracture of the T6 vertebra with mild dorsal displacement of the posterior-superior superior wall. Less than 30% benign compression fracture due to superior endplate Schmorl's node T4. No evidence of an acute compression fracture. No marrow signal abnormality.... Impression & Plan The patient has: osteoporosis Patient has a history of fracture(s) (Comment: T6 and T7) Vertebral Fracture Date: 04/2022 Age: 57 (Comment: R knee after mechanical fall slipping on ice, non fragility) L Shoulder and R knee fracture, nonfragility Most Recent BMD Date: 11/08/22 LS: 0.859 g/cm2 Hip - Left: 0.471 g/cm2 LS T-Score: -2.7 LS Z-Score: -1.6 decrease L Hip T-Score: -4.1 L Hip Z-Score: -2.9 decrease Unavailable Osteoporosis FRAX Risk Factors Fracture(s) (Comment: T6 and T7) Vertebral Fracture Date: 04/2022 Age: 57 (Comment: R knee after mechanical fall slipping on ice, non fragility) L Shoulder and R knee fracture, nonfragility No family history of osteoporosis No parent with a hip fracture Not a current smoker Glucocorticoid use (Comment: 4 mg, since age of 24; at least 10 years she is taking 4 mg) Current use No rheumatoid arthritis Secondary osteoporosis No hyperthyroidism Chronic malnutrition No alcohol use more than 3 units per day Diagnoses: No diagnosis found. Plan: Osteoporosis -Reviewed available DXA and labs. 11/08/2022 DXA with lowest T-score of -4.1 in the left hip. -Previous Osteoporosis Medications: Reclast (2016), Evenity (01/2023-01/2024) -Current Osteoporosis Medications: Reclast (01/16/2024) TSH Free T4 Vitamin D 25 Hydroxy PTH, Intact Cross-Link N-telopeptide C Telopeptide, Beta Procollagen Type 1 Latest Ref Rng 0.270 - 4.200 uU/mL 0.9 - 1.7 ng/dL 31.0 - 80.0 ng/mL 15 - 65 pg/mL 14.4 - 75.0 nM/mM Creat pg/mL ug/L 11/17/2004 3.320 08/03/2005 8.580 ! 07/19/2007 2.930 1.0 09/22/2007 11.5 (L) (C) 03/22/2008 19.5 (L) (C) 19 05/02/2009 21.3 (L) 10/29/2009 40.3 01/05/2011 5.350 03/07/2012 20.7 (L) 12/03/2014 12.800 (H) 27.4 (L) 12/31/2016 17.3 (L) 03/04/2017 79.2 (H) 03/08/2017 22.3 (L) 07/29/2017 61.7 08/23/2017 8.290 (H) 08/24/2017 1.0 10/09/2018 41.9 10/12/2018 69.9 02/08/2021 2.060 1.1 3.760 01/13/2023 31.8 29 277 47 10/21/2023 47.5 -10/2023 No cytopenias. -01/20/2024 SCr, serum calcium, and LFTs WNL. -Recommend continuing Reclast infusion annually. -Continue calcium and vitamin D supplements. -Other measures to prevent and treat osteoporosis and its complications are also recommended and have been discussed. Those include practicing aerobic exercise, limiting the intake of alcohol, and preventing falls (e.g., doing exercises to maintain balance, wearing sensible shoes, keeping good lightening in the house, removing home hazards, and using assistive devices if necessary). -Return to clinic in 07/2024 for follow-up with Dr. Snow. 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 Bills. Scheduled for follow up. -PFTS, CXR, and CT stable. -Symptoms stable. -Return to clinic in 07/2024 for follow-up with Dr. Snow. Orders this visit: No orders found for this visit on 01/25/24. No follow-ups on file. I spent a total of 90 minutes on the date of the service which included preparing to see the patient, [id number] patient care, completing clinical documentation, obtaining and/or reviewing separately obtained history, performing a medically appropriate examination, counseling and educating the patient/family/caregiver, ordering medications, tests, or procedures, independently interpreting results (not separately reported), and communicating results to the patient/family/caregiver. RACHEL Lerma Date: January 25, 2024 documented in this encounter [facility] 12-16-2023 Nurse Note Patient presents with: Imm/Inj Pt is identified by name and birthdate: Yes. Allergies and medications reviewed. Latex allergy? No. Does this patient have: Unplanned weight loss or gain of greater than 10 pounds, or a change of appetite over the last year? No Does the patient have any concerns about safety in the home/falls? Not at risk for falls Has the patient fallen in the past year? No Does the patient have difficulty performing or completing routine daily living activities? No Does this patient have concerns about personal safety? No Is patient having pain? Pain: No=0 (pain 0 on a scale of 0-10). Health Maintenance: Reviewed and updated. Does patient have MyChart access or Caregiver proxy: yes Pt/Caregiver willingness and readiness to learn assessed: Yes. Barriers: none EVENITY injection administered, LEFT ARM,tolerated well, no immediate adverse reactions noted. Alvina Haney LPN [facility] 12-16-2023 Nurse Note Patient presents with: Imm/Inj Pt is identified by name and birthdate: Yes. Allergies and medications reviewed. Latex allergy? No. Does this patient have: Unplanned weight loss or gain of greater than 10 pounds, or a change of appetite over the last year? No Does the patient have any concerns about safety in the home/falls? Not at risk for falls Has the patient fallen in the past year? No Does the patient have difficulty performing or completing routine daily living activities? No Does this patient have concerns about personal safety? No Is patient having pain? Pain: No=0 (pain 0 on a scale of 0-10). Health Maintenance: Reviewed and updated. Does patient have MyChart access or Caregiver proxy: yes Pt/Caregiver willingness and readiness to learn assessed: Yes. Barriers: none EVENITY injection administered, LEFT ARM,tolerated well, no immediate adverse reactions noted. Alvina Haney LPN documented in this encounter [facility] 12-07-2023 Telephone encounter Note Images from the original note were not included. Most recent Rheumatology visit: 10/17/2023 (with Donnie Snow) Rheumatology Care Team: None on file Recent Office Visits - This Specialty 10/17/2023 Systemic scleroderma (HCC) Rheumatology Donnie Snow MD 04/20/2023 Age-related osteoporosis without current pathological fracture Rheumatology Sonal Loco PA-C 01/13/2023 Age-related osteoporosis without current pathological fracture Rheumatology Donnie Snow MD Upcoming Rheumatology Appointments - Next 365 Days Visit Type Date Time Department TI NEW [facility] 01/25/2024 4:00 PM [facility] TI EST [facility] 07/26/2024 2:30 PM [facility] CBC: Latest Ref Rng & Units 04/20/2023 10/21/2023 CBC WBC 3.70 - 11.00 k/uL 9.40 7.21 Hemoglobin 11.5 - 15.5 g/dL 13.3 11.5 Hematocrit 36.0 - 46.0 % 42.7 37.5 Platelet Count 150 - 400 k/uL 318 195 Abs Neut (ANC) 1.45 - 7.50 k/uL 4.90 Abs Lymph 1.00 - 4.00 k/uL 1.43 Vitamin D: Latest Ref Rng & Units 01/13/2023 10/21/2023 Vitamin D Vitamin D 25 Hydroxy 31.0 - 80.0 ng/mL 31.8 47.5 LFT: Latest Ref Rng & Units 10/17/2023 10/21/2023 CMP Sodium 136 - 144 mmol/L 140 138 Potassium 3.7 - 5.1 mmol/L 4.4 4.1 Chloride 97 - 105 mmol/L 100 102 CO2 22 - 30 mmol/L 32 26 Glucose 74 - 99 mg/dL 124 74 BUN 7 - 21 mg/dL 11 14 Creatinine 0.58 - 0.96 mg/dL 0.35 0.31 Calcium 8.5 - 10.2 mg/dL 9.5 9.3 AST 13 - 35 U/L 8 ALT 7 - 38 U/L 7 Alkaline Phosphatase 34 - 123 U/L 62 Hepatic Function: Creatinine: Latest Ref Rng & Units 10/17/2023 10/21/2023 Creatinine Creatinine 0.58 - 0.96 mg/dL 0.35 0.31 ESR/CRP: None on file in the last 6 months Uric Acid: None on file in the last 6 months Open Standing (Multiple Instance) Lab Orders Remain Interval Expires Ordered Last Rel. BASIC METABOLIC PNL [SQBMP] 4 Every 3 months 04/20/24 04/20/23 10/17/23 Auth. provider: Sonal Murray PA-C Assoc. diagnoses: Medication monitoring encounter Open Future (Single Instance) Lab Orders None [facility] 12-07-2023 Miscellaneous Notes Images from the original note were not included. Most recent Rheumatology visit: 10/17/2023 (with Donnie Snow) Rheumatology Care Team: None on file Recent Office Visits - This Specialty 10/17/2023 Systemic scleroderma (HCC) Rheumatology Donnie Snow MD 04/20/2023 Age-related osteoporosis without current pathological fracture Rheumatology Sonal Loco PA-C 01/13/2023 Age-related osteoporosis without current pathological fracture Rheumatology Donnie Snow MD Upcoming Rheumatology Appointments - Next 365 Days Visit Type Date Time Department [facility] 01/25/2024 4:00 PM [facility] 07/26/2024 2:30 PM [facility] CBC: Latest Ref Rng & Units 04/20/2023 10/21/2023 CBC WBC 3.70 - 11.00 k/uL 9.40 7.21 Hemoglobin 11.5 - 15.5 g/dL 13.3 11.5 Hematocrit 36.0 - 46.0 % 42.7 37.5 Platelet Count 150 - 400 k/uL 318 195 Abs Neut (ANC) 1.45 - 7.50 k/uL 4.90 Abs Lymph 1.00 - 4.00 k/uL 1.43 Vitamin D: Latest Ref Rng & Units 01/13/2023 10/21/2023 Vitamin D Vitamin D 25 Hydroxy 31.0 - 80.0 ng/mL 31.8 47.5 LFT: Latest Ref Rng & Units 10/17/2023 10/21/2023 CMP Sodium 136 - 144 mmol/L 140 138 Potassium 3.7 - 5.1 mmol/L 4.4 4.1 Chloride 97 - 105 mmol/L 100 102 CO2 22 - 30 mmol/L 32 26 Glucose 74 - 99 mg/dL 124 74 BUN 7 - 21 mg/dL 11 14 Creatinine 0.58 - 0.96 mg/dL 0.35 0.31 Calcium 8.5 - 10.2 mg/dL 9.5 9.3 AST 13 - 35 U/L 8 ALT 7 - 38 U/L 7 Alkaline Phosphatase 34 - 123 U/L 62 Hepatic Function: Creatinine: Latest Ref Rng & Units 10/17/2023 10/21/2023 Creatinine Creatinine 0.58 - 0.96 mg/dL 0.35 0.31 ESR/CRP: None on file in the last 6 months Uric Acid: None on file in the last 6 months Open Standing (Multiple Instance) Lab Orders Remain Interval Expires Ordered Last Rel. BASIC METABOLIC PNL [SQBMP] 2/ Every 3 months 04/20/24 04/20/23 10/17/23 Auth. provider: Sonal Murray PA-C Assoc. diagnoses: Medication monitoring encounter Open Future (Single Instance) Lab Orders None documented in this encounter [facility] 11-30-2023 Note HNO ID: [id number] Author: ATUL MCKEON, DO Service: ? Author Type: Physician Type: Progress Notes Filed: 11/30/2023 14:09 Note Text: [facility] Office Visit Documentation Note [facility] Orthopaedic and Rheumatologic [place] HISTORY OF PRESENT ILLNESS (HPI) CHIEF COMPLAINT / REASON FOR VISIT SERVICE DATE: November 30, 2023 PCP: Evan De MD Tennille Ortiz is here today at request of Dr.Sarah Snow specifically for consultation of my opinion in regards to the chief complaint listed below. Correspondence will be shared today via the [email or web address] electronic health record or through regular mail, where applicable. Tennille Ortiz is a 58 year old female who presents today for a new evaluation of following complaint: Patient presents with: Right Shoulder - New HISTORY OF PRESENT ILLNESS (HPI) PAIN EVALUATION 11/28/20232221 Pain Location: Shoulder-Right Description: Aching;Sharp;Throbbing Duration Amount of Time: 24 Duration Units: Hours Frequency: Continuous Intervention/Comfort measure: Medication;Reposition Comments: I can barely I'm use arm due to the amount of f pain with the presenting complaint of New of the Right Shoulder Brief overview: Patient states that she has had right shoulder pain since April 2023.Patient states she got her blood drawn in her bicep and has had pain since. Aggravating Factors Does anything make it worse?: movement, applying pressure She is currently taking prednisone. Most recent shoulder imaging was completed on 11/29/2023 (XR SHOULDER [id number] AP/TRUE AP RIGHT) . PREVIOUS TREATMENTS: Treatments so far have included medication (Ibuprofen, Tizanidine), injection (steroid injection to the right bicep), and the assistive use of a sling. REVIEW OF SYSTEMS ROS: Neurologic: Any numbness or tingling? No Endocrine: Any diagnosis of diabetes? No ALLERGIES ALLERGIES Allergen Reactions Fortaz [Ceftazidime] Hives Hives, itching, peeling, Aspirin capillaries break Betadine [Povidone-* Itching Clindamycin Other: See Comments Skin peel, red rash, weight gain, swelling in the face and legs. Itchy. Doxycycline Shortness of Breath, Myalgia Erythromycin Base diarrhea Penicillins Hives Tolerated zosyn 02/09 PAST MEDICAL HISTORY 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 Vitamin D deficiency PHYSICAL EXAMINATION Body Habitus: well nourished, no acute distress, and alert and oriented Psych: normal Sensation: sensation to light touch is grossly normal bilaterally Skin: Color, texture, turgor normal. No rashes or lesions Swelling: no swelling noted Gait: Wheelchair ORTHO EXAM: Ortho Exam Pleasant and mildly cachectic appearing individual who comes in a wheelchair today. Unfortunately she has significant loss of range of motion of forward flexion abduction and rotation of the shoulder both internal and external. She has significant atrophy. IMAGING/LABORATORY IMAGING: Final results and radiologist's interpretation, available in the [facility] health record. Images were reviewed with the patient/family members in the office today. My personal interpretation of the performed imaging is chronic degenerative changes. Last XR Shoulder - Impression Only XR SHOULDER GENERAL 3V OR MORE AP/TRUE AP/OTHER RIGHT Exam End: 11/29/2023 11:24 AM (In process) ASSESSMENT / PLAN CLINICAL IMPRESSION / ASSESSMENT: CLINICAL IMPRESSION / ASSESSMENT: (M75.21) Biceps tendonitis on right RECOMMENDATION / PLAN: Summary pleasant 58-year-old female who has significant degenerative changes of the shoulder likely remote avascular necrosis now significant and severe glenohumeral arthritis with significant degenerative joint pain in the right humerus. Understanding that this has all stemmed from an incident in April, she still has symptoms consistent with osteoarthritis. We talked her about shoulder replacement and 90-day window between injection and replacement, she would like to consider something for pain relief now and has requested a glenohumeral joint injection today. Follow up: if symptoms persist or worsen Films prior to visit: No additional imaging warranted. Written instructions (see patient instructions) and verbal health education given to patient. Patient verbalizes understanding and agrees with the treatment plan. Atul Mckeon D.O. [facility] Physical Security Manager, [facility] [employer] Program Team Physician, [facility] [employer] Consulting Physician, [place] Tre Moreno, Flash Oven Operator [phone] Medical Decision Making Biceps tend (more content not included)... [facility] 11-30-2023 History of Present illness Narrative Associated Order(s): Large Joint Arthro/Inj: R shoulder joint Post-Procedure Diagnose(s): Restrictive lung disease; Muscular deconditioning; Primary osteoarthritis of right shoulder; Decreased range of motion of right shoulder; Biceps tendonitis on right Images from the original note were not included. [facility] Office Visit Documentation Note [facility] Orthopaedic and Rheumatologic [place] HISTORY OF PRESENT ILLNESS (HPI) CHIEF COMPLAINT / REASON FOR VISIT SERVICE DATE: November 30, 2023 PCP: Evan De MD Tennille Ortiz is here today at request of Dr.Sarah Snow specifically for consultation of my opinion in regards to the chief complaint listed below. Correspondence will be shared today via the [email or web address] electronic health record or through regular mail, where applicable. Tennille Ortiz is a 58 year old female who presents today for a new evaluation of following complaint: Patient presents with: Right Shoulder - New HISTORY OF PRESENT ILLNESS (HPI) PAIN EVALUATION 11/28/2023 2222 Pain Location: Shoulder-Right Description: Aching;Sharp;Throbbing Duration Amount of Time: 24 Duration Units: Hours Frequency: Continuous Intervention/Comfort measure: Medication;Reposition Comments: I can barely I'm use arm due to the amount of f pain with the presenting complaint of New of the Right Shoulder Brief overview: Patient states that she has had right shoulder pain since April 2023.Patient states she got her blood drawn in her bicep and has had pain since. Aggravating Factors Does anything make it worse?: movement, applying pressure She is currently taking prednisone. Most recent shoulder imaging was completed on 11/29/2023 (XR SHOULDER [id number] AP/TRUE AP RIGHT) . PREVIOUS TREATMENTS: Treatments so far have included medication (Ibuprofen, Tizanidine), injection (steroid injection to the right bicep), and the assistive use of a sling. REVIEW OF SYSTEMS ROS: Neurologic: Any numbness or tingling? No Endocrine: Any diagnosis of diabetes? No ALLERGIES ALLERGIES Allergen Reactions Fortaz [Ceftazidime] Hives Hives, itching, peeling, Aspirin capillaries break Betadine [Povidone-* Itching Clindamycin Other: See Comments Skin peel, red rash, weight gain, swelling in the face and legs. Itchy. Doxycycline Shortness of Breath, Myalgia Erythromycin Base diarrhea Penicillins Hives Tolerated zosyn 02/09 PAST MEDICAL HISTORY PAST MEDICAL HISTORY Diagnosis Date Asthma DUB (dysfunctional uterine bleeding) Hypoglycemia Hypothyroidism ILD (interstitial lung disease) ([facility]) Polymyositis ([facility]) Preop exam for internal medicine Raynaud's syndrome Raynaud's disease Restrictive lung disease Systemic sclerosis (HCC) limited Vitamin D deficiency PHYSICAL EXAMINATION Body Habitus: well nourished, no acute distress, and alert and oriented Psych: normal Sensation: sensation to light touch is grossly normal bilaterally Skin: Color, texture, turgor normal. No rashes or lesions Swelling: no swelling noted Gait: Wheelchair ORTHO EXAM: Ortho Exam Pleasant and mildly cachectic appearing individual who comes in a wheelchair today. Unfortunately she has significant loss of range of motion of forward flexion abduction and rotation of the shoulder both internal and external. She has significant atrophy. IMAGING/LABORATORY IMAGING: Final results and radiologist's interpretation, available in the [facility] health record. Images were reviewed with the patient/family members in the office today. My personal interpretation of the performed imaging is chronic degenerative changes. Last XR Shoulder - Impression Only XR SHOULDER GENERAL 3V OR MORE AP/TRUE AP/OTHER RIGHT Exam End: 11/29/2023 11:24 AM (In process) ASSESSMENT / PLAN CLINICAL IMPRESSION / ASSESSMENT: CLINICAL IMPRESSION / ASSESSMENT: (M75.21) Biceps tendonitis on right RECOMMENDATION / PLAN: Summary pleasant 58-year-old female who has significant degenerative changes of the shoulder likely remote avascular necrosis now significant and severe glenohumeral arthritis with significant degenerative joint pain in the right humerus. Understanding that this has all stemmed from an incident in April, she still has symptoms consistent with osteoarthritis. We talked her about shoulder replacement and 90-day window between injection and replacement, she would like to consider something for pain relief now and has requested a glenohumeral joint injection today. Follow up: if symptoms persist or worsen Films prior to visit: No additional imaging warranted. Written instructions (see patient instructions) and verbal health education given to patient. Patient verbalizes understanding and agrees with the treatment plan. Atul Mckeon D.O. [facility] Physical Security Manager, [facility] Program Team Physician, [facility] [employer] Consulting Physician, [place] Tre Moreno, Flash Oven Operator [phone] Medical Decision Making Biceps tendonitis on right Decreased range of motion of right shoulder (primary encounter diagnosis) Primary osteoarthritis of right shoulder Restrictive lung disease, acute productive cough Muscular deconditioning Large Joint Arthro/Inj: R shoulder joint Informed Consent Consent Obtained: Verbal [place] Protocol A moment to CARE was completed. SIGN IN Personnel directly involved with the procedure wore the appropriate PPE. Patient/Surrogate Stated/Verified: Patient name, Date of , Relevant allergies and Intended procedure TIME OUT Intended patient and procedure match the source document(s). Consent documented and matches the intended procedure. Relevant labs, photos, and/or imaging studies have been reviewed. Correct side/site marked and visible. Medications required for procedure verified. Fire risk assessed and interventions discussed. 11/30/2023 2:09 PM The procedure site was prepped in the usual sterile fashion. Site: R shoulder joint Details:Musculoskeletal ultrasound was utilized to successfully localize placement of the injection needle at the appropriate site. Ultrasound images demonstrating local vasculature and demonstrating injection of solution were saved. Medications: 6 mg betamethasone acetate-betamethasone sodium phosphate 6 mg/mL Anesthetics: 4 mL lidocaine (PF) 10 mg/mL (1 %) Outcome: Tolerated well, no immediate complications Post-injection instructions were reviewed with the patient and the patient voiced understanding of these instructions. SIGN OUT All specimen containers correctly labeled. Post-procedure follow-up management communicated and Plan of Care Visit completed when applicable Atul Mckeon DO documented in this encounter [facility] 11-29-2023 History of Present illness Narrative Radiology Service Progress Note PATIENT NAME: Tennille Ortiz DATE OF SERVICE: November 29, 2023 TIME: 3:02 PM PATIENT IDENTITY VERIFICATION COMPLETED USING TWO (2) IDENTIFIERS: Name and Date of confirmed by patient verbally. FALL SCREENING: Has the patient had 2 falls in the last year or 1 fall with injury or currently using an Ambulatory Assistive Device (Walker, Cane, Wheelchair, Crutches, etc.)? No PATIENT GENDER DATA: Female. status: : No status: NO. PATIENT RELEVANT IMPLANT DATA REVIEWED: Yes PATIENT PRESENTS WITH AN IMPLANTABLE OR ATTACHED BLOOD BANK BOOKING CLERK: No RADIOLOGY DEPARTMENT: CT; Exam(s) Completed: Chest PERIPHERAL IV DATA: Not applicable SIGNED BY: RT Zayda(R) November 29, 2023 3:02 PM documented in this encounter [facility] 11-29-[address] [facility] 11-29-2023 History of Present illness Narrative Radiology Service Progress Note PATIENT NAME: Tennille Ortiz DATE OF SERVICE: November 29, 2023 TIME: 12:05 PM PATIENT IDENTITY VERIFICATION COMPLETED USING TWO (2) IDENTIFIERS: Name and Date of confirmed by patient verbally. FALL SCREENING: Has the patient had 2 falls in the last year or 1 fall with injury or currently using an Ambulatory Assistive Device (Walker, Cane, Wheelchair, Crutches, etc.)? Yes, Patient High Risk for Falls What interventions were put in place to prevent falls during this visit? Increased Observations by Caregivers PATIENT GENDER DATA: Female. status: : No status: NO. PATIENT RELEVANT IMPLANT DATA REVIEWED: Not Applicable PATIENT PRESENTS WITH AN IMPLANTABLE OR ATTACHED BLOOD BANK BOOKING CLERK: No RADIOLOGY DEPARTMENT: General X-ray: Exam(s) Completed: Upper Extremity X-Ray(s): Shoulder, Y VIEW right PERIPHERAL IV DATA: Not applicable SIGNED BY: RT Eli(R) November 29, 2023 12:05 PM documented in this encounter [facility] 11-29-[address] [facility] 11-18-2023 Nurse Note Patient presents with: Imm/Inj Pt is identified by name and birthdate: Yes. Allergies and medications reviewed. Latex allergy? No. Does this patient have: Unplanned weight loss or gain of greater than 10 pounds, or a change of appetite over the last year? No Does the patient have any concerns about safety in the home/falls? Not at risk for falls Has the patient fallen in the past year? No Does the patient have difficulty performing or completing routine daily living activities? No Does this patient have concerns about personal safety? No Is patient having pain? Pain: No=0 (pain 0 on a scale of 0-10). Health Maintenance: Reviewed and updated. Does patient have MyChart access or Caregiver proxy: yes Pt/Caregiver willingness and readiness to learn assessed: Yes. Barriers: none Evenity injection administered, left arm, tolerated well, no immediate adverse reactions noted. Alvina Haney LPN [facility] 11-18-2023 Nurse Note Patient presents with: Imm/Inj Pt is identified by name and birthdate: Yes. Allergies and medications reviewed. Latex allergy? No. Does this patient have: Unplanned weight loss or gain of greater than 10 pounds, or a change of appetite over the last year? No Does the patient have any concerns about safety in the home/falls? Not at risk for falls Has the patient fallen in the past year? No Does the patient have difficulty performing or completing routine daily living activities? No Does this patient have concerns about personal safety? No Is patient having pain? Pain: No=0 (pain 0 on a scale of 0-10). Health Maintenance: Reviewed and updated. Does patient have MyChart access or Caregiver proxy: yes Pt/Caregiver willingness and readiness to learn assessed: Yes. Barriers: none Evenity injection administered, left arm, tolerated well, no immediate adverse reactions noted. Alvina Haney LPN documented in this encounter [facility] 11-17-2023 Telephone encounter Note Images from the original note were not included. Most recent Rheumatology visit: 10/17/2023 (with Donnie Snow) Rheumatology Care Team: None on file Recent Office Visits - This Specialty 10/17/2023 Systemic scleroderma (HCC) Rheumatology Donnie Snow MD 04/20/2023 Age-related osteoporosis without current pathological fracture Rheumatology Sonal Loco PA-C 01/13/2023 Age-related osteoporosis without current pathological fracture Rheumatology Donnie Snow MD Upcoming Rheumatology Appointments - Next 365 Days Visit Type Date Time Department [facility] 01/25/2024 4:00 PM [facility] 07/26/2024 2:30 PM [facility] MAIN A50 CBC: Latest Ref Rng & Units 04/20/2023 10/21/2023 CBC WBC 3.70 - 11.00 k/uL 9.40 7.21 Hemoglobin 11.5 - 15.5 g/dL 13.3 11.5 Hematocrit 36.0 - 46.0 % 42.7 37.5 Platelet Count 150 - 400 k/uL 318 195 Abs Neut (ANC) 1.45 - 7.50 k/uL 4.90 Abs Lymph 1.00 - 4.00 k/uL 1.43 Vitamin D: Latest Ref Rng & Units 01/13/2023 10/21/2023 Vitamin D Vitamin D 25 Hydroxy 31.0 - 80.0 ng/mL 31.8 47.5 LFT: Latest Ref Rng & Units 10/17/2023 10/21/2023 CMP Sodium 136 - 144 mmol/L 140 138 Potassium 3.7 - 5.1 mmol/L 4.4 4.1 Chloride 97 - 105 mmol/L 100 102 CO2 22 - 30 mmol/L 32 26 Glucose 74 - 99 mg/dL 124 74 BUN 7 - 21 mg/dL 11 14 Creatinine 0.58 - 0.96 mg/dL 0.35 0.31 Calcium 8.5 - 10.2 mg/dL 9.5 9.3 AST 13 - 35 U/L 8 ALT 7 - 38 U/L 7 Alkaline Phosphatase 34 - 123 U/L 62 Hepatic Function: Creatinine: Latest Ref Rng & Units 10/17/2023 10/21/2023 Creatinine Creatinine 0.58 - 0.96 mg/dL 0.35 0.31 ESR/CRP: None on file in the last 6 months Uric Acid: None on file in the last 6 months Open Standing (Multiple Instance) Lab Orders Remain Interval Expires Ordered Last Rel. BASIC METABOLIC PNL [SQBMP] 2/ Every 3 months 04/20/24 04/20/23 10/17/23 Auth. provider: Sonal Murray PA-C Assoc. diagnoses: Medication monitoring encounter Open Future (Single Instance) Lab Orders None [facility] 11-17-2023 Miscellaneous Notes Images from the original note were not included. Most recent Rheumatology visit: 10/17/2023 (with Donnie Snow) Rheumatology Care Team: None on file Recent Office Visits - This Specialty 10/17/2023 Systemic scleroderma (HCC) Rheumatology Donnie Snow MD 04/20/2023 Age-related osteoporosis without current pathological fracture Rheumatology Sonal Loco PA-C 01/13/2023 Age-related osteoporosis without current pathological fracture Rheumatology Donnei Snow MD Upcoming Rheumatology Appointments - Next 365 Days Visit Type Date Time Department TI [facility] 01/25/2024 4:00 PM [facility] MAIN A50 [facility] 07/26/2024 2:30 PM [facility] MAIN A50 CBC: Latest Ref Rng & Units 04/20/2023 10/21/2023 CBC WBC 3.70 - 11.00 k/uL 9.40 7.21 Hemoglobin 11.5 - 15.5 g/dL 13.3 11.5 Hematocrit 36.0 - 46.0 % 42.7 37.5 Platelet Count 150 - 400 k/uL 318 195 Abs Neut (ANC) 1.45 - 7.50 k/uL 4.90 Abs Lymph 1.00 - 4.00 k/uL 1.43 Vitamin D: Latest Ref Rng & Units 01/13/2023 10/21/2023 Vitamin D Vitamin D 25 Hydroxy 31.0 - 80.0 ng/mL 31.8 47.5 LFT: Latest Ref Rng & Units 10/17/2023 10/21/2023 CMP Sodium 136 - 144 mmol/L 140 138 Potassium 3.7 - 5.1 mmol/L 4.4 4.1 Chloride 97 - 105 mmol/L 100 102 CO2 22 - 30 mmol/L 32 26 Glucose 74 - 99 mg/dL 124 74 BUN 7 - 21 mg/dL 11 14 Creatinine 0.58 - 0.96 mg/dL 0.35 0.31 Calcium 8.5 - 10.2 mg/dL 9.5 9.3 AST 13 - 35 U/L 8 ALT 7 - 38 U/L 7 Alkaline Phosphatase 34 - 123 U/L 62 Hepatic Function: Creatinine: Latest Ref Rng & Units 10/17/2023 10/21/2023 Creatinine Creatinine 0.58 - 0.96 mg/dL 0.35 0.31 ESR/CRP: None on file in the last 6 months Uric Acid: None on file in the last 6 months Open Standing (Multiple Instance) Lab Orders Remain Interval Expires Ordered Last Rel. BASIC METABOLIC PNL [SQBMP] 08/07 Every 3 months 04/20/24 04/20/23 10/17/23 Auth. provider: Sonal Murray PA-C Assoc. diagnoses: Medication monitoring encounter Open Future (Single Instance) Lab Orders None documented in this encounter [facility] 11-10-2023 History of Present illness Narrative Images from the original note were not included. . 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 She has a history of tracheostomy tube as well as PEG tube placement. At [facility], she had no progression of ILD, PFTs showed severe restriction, updated echocardiogram with very mild PAH. Today she states she continues to do well as can be expected. She has not had any recent upper respiratory infections. She did have an aspiration episode several days ago, choking on a potato chip. Since then she has had some increased mucus production. No chest pain, fevers, chills, wheezing. Her occup therapist ordered updated chest CT. Last CT was performed in 2021 for evaluation of pulmonary embolism. I do not have images for review since performed at outside facility. There is no mention of fibrotic lung disease. DATA: Labs: Component Ref Range & Units 2 wk ago (10/21/23) WBC 3.70 - 11.00 k/uL 7.21 RBC 3.90 - 5.20 m/uL 4.02 Hemoglobin 11.5 - 15.5 g/dL 11.5 Hematocrit 36.0 - 46.0 % 37.5 MCV 80.0 - 100.0 fL 93.3 MCH 26.0 - 34.0 pg 28.6 MCHC 30.5 - 36.0 g/dL 30.7 RDW-CV 11.5 - 15.0 % 15.3 High Platelet Count 150 - 400 k/uL 195 Comment: No clot detected. MPV 9.0 - 12.7 fL 10.5 Neutrophils % % 68.0 Abs Neut 1.45 - 7.50 k/uL 4.90 Lymphocytes % % 19.8 Abs Lymph 1.00 - 4.00 k/uL 1.43 Monocytes % % 8.9 Abs [place] <0.87 k/uL 0.64 Eosinophils % % 2.8 Abs Eosin <0.46 k/uL 0.20 Basophils % % 0.4 Abs Baso <0.11 k/uL 0.03 Immature Granulocytes % % 0.1 Abs Immature Gran <0.10 k/uL <0.03 NRBC /100 WBC 0.0 Absolute nRBC <0.01 k/uL <0.01 Diff Type Auto Imaging / Diagnostic Studies: Echocardiography Report: Transthoracic Echo [facility] [id number] Date of service: 05/25/2023 11:58:13 AM CONCLUSIONS: - Exam indication: Shortness of Breath - The left ventricle is normal in size. Left ventricular systolic function is normal. EF = 63 5% (2D biplane) - The right ventricle is normal in size. Right ventricular systolic function is normal. - Estimated right ventricular systolic pressure is likely underestimated due to a weak or incomplete tricuspid regurgitation signal and is, at least, 29 mmHg consistent with normal pulmonary artery pressures. Estimated right atrial pressure is 3 mmHg based on IVC assessment. - There are no significant valvular abnormalities. - Exam was compared with the prior echocardiographic exam performed on 02/09/2021. There has been interval improvement in RVSP. 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 Vitamin D deficiency ALLERGIES Allergen Reactions Fortaz [Ceftazidime] Hives Hives, itching, peeling, Aspirin capillaries break Betadine [Povidone-* Itching Clindamycin Other: See Comments Skin peel, red rash, weight gain, swelling in the face and legs. Itchy. Doxycycline Shortness of Breath, Myalgia Erythromycin Base diarrhea Penicillins Hives Tolerated zosyn 02/09 rosuvastatin (CRESTOR) 20 mg tablet^Take 1 tablet by mouth once daily.^Disp: ^Rfl: PARoxetine (PAXIL) 10 mg tablet^Take 10 mg by mouth once daily.^Disp: ^Rfl: predniSONE (DELTASONE) 1 mg tablet^Take 4 tablets by mouth once daily. NO REFILLS WITHOUT APPOINTMENT WITH DR FUENTES^Disp: 120 tablet^Rfl: 0 romosozumab-aqqg (EVENITY SUBCUTANEOUS)^Inject subcutaneously once every month.^Disp: ^Rfl: calcium carbonate (CALCIUM 300 ORAL)^Take by mouth. unknown dosage^Disp: ^Rfl: multivitamin tablet^Take by mouth.^Disp: ^Rfl: albuterol (PROVENTIL) 2.5 mg /3 mL (0.083 %) nebulizer solution^Use 3 mL via nebulizer every 4 hours.^Disp: 270 mL^Rfl: 5 levothyroxine (SYNTHROID) 100 mcg tablet^Take 1 tablet by mouth daily before breakfast.^Disp: 30 tablet^Rfl: 0 triamcinolone acetonide (KENALOG) 0.1 % cream^Apply to affected area two times a day.^Disp: ^Rfl: rOPINIRole (REQUIP) 0.5 mg tablet^Take 0.5 mg by mouth as needed.^Disp: ^Rfl: (Patient not taking: Reported on 11/10/2023) calcium carbonate (CALCIUM 600 ORAL)^Take 100 Units by mouth once daily. unknown dose^Disp: ^Rfl: cholecalciferol (VITAMIN D3) 400 unit tab^Take by mouth.^Disp: ^Rfl: rOPINIRole (REQUIP) 0.25 mg tablet^Take 1 tablet by mouth twice daily.^Disp: ^Rfl: sodium chloride 7% solution 7 % nebu^Inhale 4 mL as instructed twice daily.^Disp: 300 Vial^Rfl: 3 sodium chloride 7% solution 7 % nebu^Inhale 4 mL as instructed twice daily.^Disp: 60 Vial^Rfl: 0 Ibuprofen 200 mg cap^Take 800 mg by mouth three times daily.^Disp: ^Rfl: Nebulizer and Compressor For Neb Bekah^1 Device as needed. Use as directed.^Disp: 1 Device^Rfl: 0 Social History Tobacco Use Smoking status: Never Smokeless tobacco: Never Vaping Use Vaping Use: Never used Substance Use Topics Alcohol use: Yes Comment: occasionally Drug use: No FAMILY HISTORY Problem Relation Age of Onset Heart Mother Heart Father Cervical Cancer Sister Alzheimer's Disease Maternal Grandmother Cancer Maternal Grandmother unsure Heart Paternal Grandfather other (negative [Other]) Other negative for breast, ovary or endometrial PAST SURGICAL HISTORY Procedure Laterality Date APPENDECTOMY ARTHRP ACETBLR/PROX FEM PROSTC AGRFT/ALGRFT right hip DILATION & CURETTAGE DX&/THER NONOBSTETRIC Dilation & curettage LIG/TRNSXJ FLP TUBE ABDL/VAG APPR UNI/BI Tubal ligation MIDLINE INSERTION/CONSULT 08/22/2017 PAST SURGICAL HISTORY OF GI tube PAST SURGICAL HISTORY OF right vascular reconstruction PAST SURGICAL HISTORY OF tracheostomy PAST SURGICAL HISTORY OF removal of calcium deposits from right hand PAST SURGICAL HISTORY OF 2010 Hysterectomy Ovaries Intact PMH, Social history, family history and surgical history reviewed and updated in EMR REVIEW OF SYSTEMS: CONSTITUTIONAL: No fevers, chills, nightsweats, unintended weight loss CARDIOVASCULAR: No chest pain, dyspnea, palpitations, edema. PULM: See HPI GI: Intermittent aspiration. Abdominal bloating and gas MUSC-SKEL: Arthritis mutilans PSY: Depression INTEGUMENTARY: No new skin changes PHYSICAL EXAMINATION: LMP 04/12/2010 BP 112/68, pulse 75, RR 17, SpO2 99% on room air General Appearance: Thin frail female in wheelchair. Skin: Skin color, texture, turgor normal, no suspicious rashes or lesions. Head: Normocephalic, no masses, lesions, tenderness or abnormalities. Oropharynx: Poor dentition, narrow oral aperture. Neck: No JVD, no masses, no adenopathy. Lungs: Not labored, normal to percussion, basilar crackles left greater than right. Heart: Regular rate and rhythm, no murmurs or gallops. Extremities: No edema. Musculoskeletal: Arthritis mutilans. Assessment/Plan: 1. ILD -Pulmonary function tests show severe restriction which has been stable -Pending updated chest CT -Pulmonary function test at next visit -ILD believed to be related to recurrent aspiration rather than from her limited systemic sclerosis. ILD not usually associated with limited disease -Mucus clearance techniques 2. Systemic sclerosis with myopathy -Follows with rheumatology -Patient on low-dose prednisone 3. Aspiration -See #1 -Aspiration cautions Murphy Bills MD [facility] documented in this encounter [facility] 10-25-2023 Telephone encounter Note Jenny Aranda Team, This patient would like to receive her reclast infusion at your location. Orders have been entered by Dr. Snow and authorization is pending, but will need to be adjusted for your location. Please let me know if you have any questions or cannot accommodate. Thank you! [facility] 10-25-2023 Telephone encounter Note ----- Message from Donnie Snow MD sent at 10/22/2023 11:03 AM EDT ----- Hi can you please schedule this patient with Reda in 3 months and with me in 6 months for scleroderma (or when I am next available)? I would also like to schedule her for Reclast. She will be finishing Evenity 12/15, so she should receive Reclast about one month after completing Evenity (01/14). Thank you so much! Donnie [facility] 10-25-2023 Miscellaneous Notes Jenny Aranda Team, This patient would like to receive her reclast infusion at your location. Orders have been entered by Dr. Snow and authorization is pending, but will need to be adjusted for your location. Please let me know if you have any questions or cannot accommodate. Thank you! ----- Message from Donnie Snow MD sent at 10/22/2023 11:03 AM EDT ----- Hi can you please schedule this patient with Reda in 3 months and with me in 6 months for scleroderma (or when I am next available)? I would also like to schedule her for Reclast. She will be finishing Evenity 12/15, so she should receive Reclast about one month after completing Evenity (01/14). Thank you so much! Donnie documented in this encounter [facility] 10-21-2023 Nurse Note Patient presents with: Imm/Inj Pt is identified by name and birthdate: Yes. Allergies and medications reviewed. Latex allergy? No. Does this patient have: Unplanned weight loss or gain of greater than 10 pounds, or a change of appetite over the last year? No Does the patient have any concerns about safety in the home/falls? Not at risk for falls Has the patient fallen in the past year? No Does the patient have difficulty performing or completing routine daily living activities? No Does this patient have concerns about personal safety? No Is patient having pain? Pain: No=0 (pain 0 on a scale of 0-10). Health Maintenance: Reviewed and updated. Does patient have MyChart access or Caregiver proxy: yes Pt/Caregiver willingness and readiness to learn assessed: Yes. Barriers: none evenity injection administered, left arm,. tolerated well, no immediate adverse reactions noted. Alvina Haney LPN documented in this encounter [facility] 10-17-2023 History of Present illness Narrative Images from the original note were not included. Osteoporosis and Metabolic Bone Disease CONSULTATION Referring Provider: Date of Service: 10/17/2023 Name: Tennille Ortiz : 1965 Chief Complaint: Osteoporosis and Scleroderma Last Rheumatology visit: 10/17/2023 (with Donnie Snow) Tennille Ortiz is a 58 year old female who presents on 10/17/2023 for in-person visit for osteoporosis evaluation. HISTORY OF PRESENT ILLNESS Past medical history of scleroderma/myositis overlap (presence of ILD, sclerodactyly, acroosteolysis, calcinosis) and osteoporosis (only once Reclast in 2016 then lost to follow up) and chronic prednisone 4 mg. Presents as a new patient to Dr. Snow but patient has previously followed with Dr. Fuentes until 2019 and lost to follow-up. Most recent bone density scan in November 2022 showing lowest T score -4.1 in L femoral neck. She has been having steady decline in BMD in 2014 and 2016 and 2022 DXA scans. She had one-time zoledronic acid ordered by Dr. Fuentes in 2016 however patient lost to follow-up since then. She had a one-time fragility fracture in 2021 has compression fracture of her T6-T7 vertebrae. Her scleroderma and myositis has not been followed by any occup therapist since the last follow-up with Dr. Fuentes and she has been taking prednisone 4 mg as maintenance therapy at least 10 years. Recap of her scleroderma and myositis history: Scleroderma without truncal involvement, presence of ILD and severe restrictive lung disease (moderately reduced DLCO and reduced TLC). Also calcinosis, sclerodactyly, severe contractures in her fingers limiting her life with fine motor movements. Lost to follow-up with Dr. Fuentes and [place]. Myositis diagnosis in 1988; last flare 1998. Treated with prednisone and methotrexate. INTERVAL HISTORY -Tennille Ortiz is a 58 year old woman with a PMH of asthma, adnexal mass, hypothyroidism, depression, RLS who presents to follow up for scleroderma (since 1988), myositis (since 1988), and OP. -She is on Evenity, started 01/2023. No issues with the Evenity that she has noticed. No falls or fractures. She confirms that she is supplementing vitamin D and calcium. -She has had some issues since the last visit. She came down with flu B and was seen in the ED. She notes that the tourniquet was too tight for an extended period of time with multiple blood draw attempts. It was thought that she had a tendon issue. She had a steroid injection in the biceps tendon sheath with with [facility] which helped her pain somewhat. She is avoiding blood draws in the R arm. -She reports she had cellulitis in the R arm. She was treated 2 rounds of bactrim and also levaquin. She is also treating with steroid cream. It has improved and decreased to a smaller area. It is no longer warm. -She had a R occipital nerve block with Dr. Awad. -She also has a long standing history of limited scleroderma and myositis which she states is stable. She takes prednisone 4mg daily for maintenance. -She saw Dr. Bills (pulmonary): ILD thought to be due to aspiration (and not due to systemic sclerosis), she does have fibrosis (not currently treating), and restrictive lung disease. -Patient states that she takes ibuprofen daily for neck pain. Takes 600mg BID. She denies GERD and is not on a PPO -GI suggested EGD to evaluate for kaplan's , erosive disease, stricture but patient deferred -Patient has raynaud's but no ulcers. She states she had gangrene once which happened after a procedure of that area. She is not on medication for management of raynaud's -TTE from 05/2023 showed improved RVSP. -Patient endorses weakness, dysphagia, dyspnea but states nothing it more than her usual -She will be moving on Tuesday to a house all on one level. Osteoporosis History Patient has a history of fracture(s) (Comment: T6 and T7) Vertebral Fracture Date: 04/2022 Age: 57 (Comment: R knee after mechanical fall slipping on ice, non fragility) L Shoulder and R knee fracture, nonfragility Most Recent BMD Date: 11/08/22 LS: 0.859 g/cm2 Hip - Left: 0.471 g/cm2 LS T-Score: -2.7 LS Z-Score: -1.6 decrease L Hip T-Score: -4.1 L Hip Z-Score: -2.9 decrease Unavailable Daily Calcium diet: 450 mg Daily Calcium supplementation: (Comment: doesn't recall dose, however does not take consistently) Daily Vitamin D: 1000 IU Current Multivitamin: Yes Dental: Broken teeth, cannot open her mouth No extraction planned. RISK FACTORS Osteoporosis FRAX Risk Factors Fracture(s) (Comment: T6 and T7) Vertebral Fracture Date: 04/2022 Age: 57 (Comment: R knee after mechanical fall slipping on ice, non fragility) L Shoulder and R knee fracture, nonfragility No family history of osteoporosis No parent with a hip fracture Not a current smoker Glucocorticoid use (Comment: 4 mg, since age of 24; at least 10 years she is taking 4 mg) Current use No rheumatoid arthritis Secondary osteoporosis No hyperthyroidism Chronic malnutrition No alcohol use more than 3 units per day Osteoporosis Medication Risk Factors No use of Anti-convulsants No use of Aromatase inhibitors No use of Furosemide No use of Proton pump inhibitor No use of Thyroid hormone with oversuppression No use of exterminator helper termite heparin use Other high risk medication for bone loss Overall med risk factors - additional details: chronic steroids Osteoporosis Disease-Specific Risk Factors Weight < 127 lbs Height loss 1 inch 10 years Fall history Fall Date Description / Comment April 2022 from standing height Eating Disorder (Comment: cannot open her mouth due to SSc) No hyperparathyroidism No history of hypercalciuria Renal calculi (Comment: many years ago) No CKD Caffeine intake: 1-3 c/day Exercise routine: no regular exercise program WOMEN / ESTROGEN Age of Menarche: 11 years Menopause status: post-menopausal Type of Menopause: surgical Age of Menopause: 45 years Previous estrogen use: none Hysterectomy: Yes Hysterectomy age: 45 years Ovaries: intact Breast cancer: No Family history of breast cancer: No OB History 3 Para 2 Term 2 0 AB 1 Living 2 SAB 1 IAB 0 Ectopic 0 Multiple 0 Live Births TREATMENT HISTORY Osteoporosis - Antiresorptive Treatments Treatment Start Date Stop Date Stop Reason Comment Zoledronic acid 2016 2017 pt choice 1 year only Osteoporosis - Anabolic Treatments Treatment Start Date Stop Date Stop Reason Comment Evenity 01/2023 Prednisone Treatments Treatment Start Date Stop Date Stop Reason Comment Prednisone 4 mg 1989 at least for the past 10-20 years taking 4 mg, before that higher, but always took steroids Answers submitted by the patient for this visit: Review of Systems Rheumatology (Submitted on 10/11/2023) Fever : No Recent unintentional weight change: No Eye pain: No Eye redness: No Vision Disturbance: No Eye Dryness: Yes Nosebleeds: No Sores in your mouth: No Trouble Swallowing: Yes Dry Mouth: Yes Chest pain: No Leg Swelling: No A cough: No Shortness of breath: Yes Pain with breathing: No Heartburn: No Abdominal pain: No Diarrhea: No Black tarry stools: No Blood in urine: No Pain or burning with urination: No Joint pain or stiffness: Yes Muscle weakness: Yes Muscle aches: Yes Joint swelling: Yes Morning Stiffness in Joints: Yes A rash: Yes Do you have sun sensitive rashes?: No Skin Color Changes: No Hair Loss: Yes Nail Changes: No Headaches: Yes Numbness: No Memory Loss: No Swollen Glands: Yes Comprehensive review of systems completed and negative except as indicated above. ACTIVE PROBLEM LIST Systemic sclerosis; CREST Degenerative Skin Disorder Unspecified Hypothyroidism Unspecified Disorder of Menstruation and Other Abnormal Bleeding From Female Genital Tract Dub (Dysfunctional Uterine Bleeding) Preop Exam for Internal Medicine Hypothyroidism Polymyositis (HCC) Raynaud's Syndrome Restrictive lung disease, Acute Productive Cough Urine, Incontinence, Stress Female Uterovaginal Prolapse Sleep Apnea Muscular Deconditioning Summary Adnexal Mass Restless Leg Syndrome Palpitations Healthcare Maintenance Ischemia of Digits of Hand Depression Exacerbation of Asthma Abnormal Sputum Age-Related Osteoporosis Without Current Pathological Fracture Current Chronic Use of Systemic Steroids Fracture of Vertebra Due to Osteoporosis (Hcc) Occipital Neuralgia of Right Side Protein-Calorie Malnutrition (Hcc) Coagulation Defect, Unspecified (Hcc) MEDICATIONS Present Osteoporosis Medications: Current Anabolic Medications Bone Formation Agents - Sclerostin Inhibitor, Monoclonal Antibody Start End romosozumab-aqqg (EVENITY SUBCUTANEOUS) -- Sig - Route: Inject subcutaneously once every month. - SUBCUTANEOUS Class: Historical Med romosozumab-aqqg 210 mg injection (EVENITY) 01/18/2023 01/13/2024 210 mg, SUBCUTANEOUS, EVERY 1 MONTH, Allow to sit for 30 minutes to reach room temperature before injection. Total dose is 2 syringes (210 mg total) injection into abdomen, thigh, or upper arm. Current Calcium, Multivitamin, and Vitamin D Use on File Minerals and Electrolytes - Calcium Replacement Start End calcium carbonate (CALCIUM 600 ORAL) -- Sig - Route: Take 100 Units by mouth once daily. unknown dose - ORAL Class: Historical Med calcium carbonate (CALCIUM 300 ORAL) -- Sig - Route: Take by mouth. unknown dosage - ORAL Class: Historical Med Vitamins - D Derivatives Start End cholecalciferol (VITAMIN D3) 400 unit tab -- Sig - Route: Take by mouth. - ORAL Class: Historical Med Multivitamins Start End multivitamin tablet -- Sig - Route: Take by mouth. - ORAL Class: Historical Med Current Outpatient Medications Medication Sig predniSONE (DELTASONE) 1 mg tablet Take 4 tablets by mouth once daily. NO REFILLS WITHOUT APPOINTMENT WITH DR FUENTES levoFLOXacin (LEVAQUIN) 500 mg tablet Take 500 mg by mouth two times a day. romosozumab-aqqg (EVENITY SUBCUTANEOUS) Inject subcutaneously once every month. rOPINIRole (REQUIP) 0.5 mg tablet Take 0.5 mg by mouth as needed. calcium carbonate (CALCIUM 600 ORAL) Take 100 Units by mouth once daily. unknown dose calcium carbonate (CALCIUM 300 ORAL) Take by mouth. unknown dosage cholecalciferol (VITAMIN D3) 400 unit tab Take by mouth. multivitamin tablet Take by mouth. rOPINIRole (REQUIP) 0.25 mg tablet Take 1 tablet by mouth twice daily. albuterol (PROVENTIL) 2.5 mg /3 mL (0.083 %) nebulizer solution Use 3 mL via nebulizer every 4 hours. sodium chloride 7% solution 7 % nebu Inhale 4 mL as instructed twice daily. sodium chloride 7% solution 7 % nebu Inhale 4 mL as instructed twice daily. Ibuprofen 200 mg cap Take 800 mg by mouth three times daily. levothyroxine (SYNTHROID) 100 mcg tablet Take 1 tablet by mouth daily before breakfast. Nebulizer and Compressor For Neb Bekah 1 Device as needed. Use as directed. rosuvastatin (CRESTOR) 20 mg tablet Take 1 tablet by mouth once daily. PARoxetine (PAXIL) 10 mg tablet Take 10 mg by mouth once daily. triamcinolone acetonide (KENALOG) 0.1 % cream Apply to affected area two times a day. atorvastatin (LIPITOR) 40 mg tablet Take 1 tablet by mouth daily at bedtime. sertraline (ZOLOFT) 50 mg tablet Take 1 tablet by mouth daily at bedtime. Current Facility-Administered Medications Medication Dose Route Frequency romosozumab-aqqg 210 mg injection (EVENITY) 210 mg SUBCUTANEOUS q 1 MONTH PAST MEDICAL HISTORY Diagnosis Date Asthma DUB (dysfunctional uterine bleeding) Hypoglycemia Hypothyroidism ILD (interstitial lung disease) (HCC) Polymyositis (HCC) Preop exam for internal medicine Raynaud's syndrome Raynaud's disease Restrictive lung disease Systemic sclerosis (HCC) limited Vitamin D deficiency PAST SURGICAL HISTORY Procedure Laterality Date APPENDECTOMY ARTHRP ACETBLR/PROX FEM PROSTC AGRFT/ALGRFT right hip DILATION & CURETTAGE DX&/THER NONOBSTETRIC Dilation & curettage LIG/TRNSXJ FLP TUBE ABDL/VAG APPR UNI/BI Tubal ligation MIDLINE INSERTION/CONSULT 08/22/2017 PAST SURGICAL HISTORY OF GI tube PAST SURGICAL HISTORY OF right vascular reconstruction PAST SURGICAL HISTORY OF tracheostomy PAST SURGICAL HISTORY OF removal of calcium deposits from right hand PAST SURGICAL HISTORY OF 2010 Hysterectomy Ovaries Intact PAIN EVALUATION 10/11/2023 0910 10/17/2023 1407 Pain Level: 7 6 shoudlers and right arm Pain Location: Shoulder-Right -- Description: Radiating;Sharp;Shooting;Tightnes s -- Duration Units: Months -- Frequency: Continuous Continuous Intervention/Comfort measure: Medication;Reposition;Massage;Pos itioning -- Comments: Rt. Shoulder and bicep -- ALLERGIES Allergen Reactions Fortaz [Ceftazidime] Hives Hives, itching, peeling, Aspirin capillaries break Betadine [Povidone-* Itching Clindamycin Other: See Comments Skin peel, red rash, weight gain, swelling in the face and legs. Itchy. Doxycycline Shortness of Breath, Myalgia Erythromycin Base diarrhea Penicillins Hives Tolerated zosyn 02/09 FAMILY HISTORY Problem Relation Age of Onset Heart Mother Heart Father Cervical Cancer Sister Alzheimer's Disease Maternal Grandmother Cancer Maternal Grandmother unsure Heart Paternal Grandfather other (negative [Other]) Other negative for breast, ovary or endometrial Social History Tobacco Use Smoking status: Never Smokeless tobacco: Never Vaping Use Vaping Use: Never used Substance Use Topics Alcohol use: Yes Comment: occasionally Drug use: No OBJECTIVE DATA: PHYSICAL EXAMINATION BP 109/56 Pulse 71 Temp 36.3 C (97.3 F) (Temporal) Ht 157.5 cm (5' 2) Wt 42.2 kg (93 lb) LMP 04/12/2010 BMI 17.01 kg/m GENERAL: Alert and oriented. No acute distress. SKIN: Mauskopf facies. + sclerodactyly. No calcinosis seen today. No rashes or lesions. EYES: ADAM, conjunctiva and sclera normal. EARS: External ears normal. THROAT: Normal and no erythema. DENTAL: Abnormal: poor hygiene, cracked tooth HEART: RRR LUNGS: Bilateral fine crackles. NEURO: Awake, alert and oriented x 3, cranial nerves II-XII grossly intact, normal gait and no involuntary motions. JOINT EXAM -Neck painful ROM with flexion -Shoulders, elbows, wrists, hands, fingers: Positive deformity with severe contractures of bilateral hands and fingers, significant ROM limitation of b/l shoulders. TTP of R biceps. SPINE: -+ scoliosis. TTP at thoracic spine midline where she has fracture -Knees, ankles, feet, toes: + contractures of lower extremity. No erythema, warmth, swelling, effusion, tenderness, ROM limitation. ? RELEVANT PREVIOUS INVESTIGATIONS Latest Ref Rng & Units 04/20/2023 07/29/2023 10/17/2023 10/21/2023 Calcium Calcium 8.5 - 10.2 mg/dL 9.7 9.2 9.5 9.3 Latest Ref Rng & Units 02/23/2021 02/24/2021 01/13/2023 10/21/2023 Alkaline Phosphatase Alkaline Phosphatase 34 - 123 U/L 166 177 72 72 62 Alkaline Phosphatase 34 - 123 U/L 166 177 72 72 62 Latest Ref Rng & Units 12/03/2014 08/23/2017 02/08/2021 02/08/2021 TSH TSH 0.270 - 4.200 uU/mL 12.800 8.290 2.060 3.760 Latest Ref Rng & Units 07/29/2017 10/09/2018 01/13/2023 10/21/2023 Vitamin D Vitamin D 25 Hydroxy 31.0 - 80.0 ng/mL 61.7 41.9 31.8 47.5 Latest Ref Rng & Units 04/20/2023 07/29/2023 10/17/202310/21/2023 Creatinine Creatinine 0.58 - 0.96 mg/dL 0.37 0.38 0.35 0.31 Latest Ref Rng & Units 02/23/2021 02/24/2021 01/13/2023 10/21/2023 Protein, Total PTH, Intact 15 - 65 pg/mL 29 Protein, Total 6.3 - 8.0 g/dL 6.8 7.2 6.9 7.0 Latest Ref Rng & Units 02/23/2021 02/24/2021 01/13/2023 10/21/2023 Albumin Albumin 3.9 - 4.9 g/dL 3.4 3.5 4.1 3.7 Latest Ref Rng & Units 03/22/2008 01/13/2023 PTH PTH, Intact 15 - 65 pg/mL 19 29 Latest Ref Rng & Units 03/07/2013 03/08/2013 02/08/2021 02/09/2021 Hepatitis Screen Hep A Ab, IgM Negative Negative Negative Hep B Core Ab, IgM Negative Negative Negative Hep B Core Ab, Total NEGAT Negative Hep B Surf Ab Qual NEGAT Negative Hepatitis E Ab, IgM Negative Negative Hep C Antibody IA NEGAT Negative HBsAg Negative Negative Negative Negative BONE DENSITY RESULTS Last Bone Density DXA-AXIAL SKELETON Exam End: 11/08/2022 2:10 PM (Final result) Narrative: * * *Final Report* * * DATE OF EXAM: Nov 08 2022 2:10PM [facility] 0804 - DXA - AXIAL SKELETON -NB / PROCEDURE REASON: Osteoporosis without current pathological fracture, unspecified osteoporosis typ * * * * Physician Interpretation * * * * EXAMINATION: DXA BONE DENSITOMETRY BD DXA - AXIAL SKELETON -NB CLINICAL HISTORY: DIAGNOSTIC Osteoporosis without current pathological fracture, unspecified osteoporosis type . DXA Model: A50 [employer] (S/N: [id number]) SITE SCANNED: Lumbar spine, left hip Date Scanned: 11/08/2022 2:10 PM RESULT: Lumbar spine (L1-L4): 0.859 g/cm2, T-score -2.7, Z-score -1.6 Lumbar spine: 2017: 0.975 g/cm2 Lumbar spine: 2014: 1.095 g/cm2 Lumbar spine change: -0.116 g/cm2, -11.9 %, significant decrease Left Femoral Neck: 0.471 g/cm2, T-score -4.1, Z-score -2.9 Left Femoral Neck: 2016: 0.550 g/cm2 Left Femoral Neck: 2014: 0.623 g/cm2 Left Femoral Neck Change: -0.079 g/cm2, -14.4 %, significant decrease Left Total Hip: 0.514 g/cm2, T-score -3.9, Z-score -3.1 Left Total Hip: 2016: 0.649 g/cm2 Left Total Hip: 2014: 0.713 g/cm2 Left Total Hip change: -0.135 g/cm2, -20.8 %, significant decrease Impression: IMPRESSION: THE LOWEST T-SCORE IS -4.1 IN THE LEFT HIP DIAGNOSIS: Osteoporosis Spine: Decreased bone mass in spine. Hip: Decreased bone mass in hip. FRACTURE RISK: very high risk RISK FACTORS: This patient is a 57 years Female. MENSTRUAL STATUS: She reports menstrual status of post-menopausal, menopause at age The patient reports the following risk factors associated with low bone mass or increased fracture risk: - previous fracture: left knee - low body weight <127 pounds - current steroid therapy The patient reports the following: - vitamin D intake - no calcium supplement, possible low calcium intake RECOMMENDATIONS: [facility] GUIDELINES: Postmenopausal women and men age 50 and older presenting with the following should be treated: -T-score < -2.5 at the femoral neck or spine after appropriate evaluation to exclude secondary causes Based on the patient age, bone density and risk factors: - the patient has had a significant decline in bone mass, careful follow up is recommended. Secondary causes for bone loss should be considered with appropriate lab testing. - pending workup, treatment would be indicated, but clinical correlation is required. - treatment with an anabolic agent, Forteo, Tymlos or Evenity should be considered. - the patient should take calcium, the recommended dose is 8145-5979 mg per day along with 800-1000 IU vitamin D (some patients may require higher doses of vitamin D). LIMITATIONS: - Steroid therapy may increase fracture risk independent of bone mass. FOLLOW-UP: Recommended in 1 year if on steroids cc. Vandana Stevens PA-C Director Of Marketing Operations: [employer]IE[employer] Transcribe Date/Time: Nov 08 2022 2:50P Dictated by : REY FUENTES MD This examination was interpreted and the report reviewed and electronically signed by: REY FUENTES MD on Nov 08 2022 5:04PM EST IMAGING XR R shoulder 07/05/2023 No evidence of acute fracture or dislocation. Moderate-severe osteoarthritis. NM bone scan 05/25/2023 FOCAL INTENSE INCREASED TRACER UPTAKE IN THE BILATERAL SUPERIOR FACET JOINTS OF THE C1, CONSISTENT WITH SEVERE ARTHRITIC CHANGES VERSUS STRESS INJURY. DEGENERATIVE ARTHRITIC CHANGE. Last XR Thoracic Spine - Impression Only XR THORACIC GENERAL 3V AP/LAT/SWIMMERS Exam End: 12/10/2022 11:31 AM (Final result) Impression: IMPRESSION: Unchanged T6 compression fracture. Mild degenerative changes. ... Last MRI Thoracic Spine - Impression Only MRI THORACIC SPINE WO IVCON Exam End: 01/10/2023 2:49 PM (Final result) Impression: IMPRESSION: Chronic benign 70% compression fracture of the T6 vertebra with mild dorsal displacement of the posterior-superior superior wall. Less than 30% benign compression fracture due to superior endplate Schmorl's node T4. No evidence of an acute compression fracture. No marrow signal abnormality.... CT chest 02/04/2015 Lower lobe predominance traction bronchiectasis, peribronchial and subpleural cystic changes greater in the left lower lobe with apparent honeycombing probably related to UIP. XR hand 12/03/2014 FINDINGS CONSISTENT WITH SCLERODERMA. AMPUTATION THROUGH RIGHT SECOND PIP JOINT. XR knee 12/03/2014 IMPRESSION: DISTAL FEMORAL AVASCULAR NECROSIS BILATERALLY. PFTS 05/05/2023 Spirometry shows no obstruction.The reduced FVC suggests restriction. Recommend lung volumes if clinically indicated. The diffusing capacity is moderately reduced. The presence of a reduced lung diffusion capacity - that normalizes when measured independent of alveolar volume (kCO) is consistent with a nonparenchymal disorder but does not rule out parenchymal or pulmonary vascular disorder TTE 05/25/2023 - The left ventricle is normal in size. Left ventricular systolic function is normal. EF = 63 5% (2D biplane) - The right ventricle is normal in size. Right ventricular systolic function is normal. - Estimated right ventricular systolic pressure is likely underestimated due to a weak or incomplete tricuspid regurgitation signal and is, at least, 29 mmHg consistent with normal pulmonary artery pressures. Estimated right atrial pressure is 3 mmHg based on IVC assessment. - There are no significant valvular abnormalities. - Exam was compared with the prior echocardiographic exam performed on 02/09/2021. There has been interval improvement in RVSP. PATIENT-ENTERED DATA: PROMIS Assessments 04/19/2023 08/20/2023 10/11/2023 PROMIS Assessments Physical Health Percentile 4 Mental Health Percentile 2 Pain Score 2 Pain Interference Percentile 1 1 1 Fatigue Percentile 12 18 Physical Function Percentile 2 0 1 PHQ-9 0 - 4: Minimal Depression 5 - 9: Mild Depression 10 - 14: Moderate Depression 15 - 19: Moderately Severe Depression 20 - 27: Severe Depression 11/06/2022 12/07/2022 02/17/2023 PHQ-9 PHQ-2 Score 4 4 5 PHQ-9 Score 9 11 11 RAPID 3 [place] Activities of Daily Living 10/11/2023 9:16 AM 04/19/2023 8:51 PM 01/10/2023 8:20 PM Dress self? With MUCH difficulty With MUCH difficulty With MUCH difficulty Get in and out of bed? With SOME difficulty With SOME difficulty With SOME difficulty Walk outdoors? With SOME difficulty With SOME difficulty With SOME difficulty Wash and dry body? With SOME difficulty With MUCH difficulty With MUCH difficulty Get in and out of car? With SOME difficulty With SOME difficulty With SOME difficulty IMPRESSION: (M34.9) Systemic scleroderma (HCC) (primary encounter diagnosis) (R06.09) Dyspnea on exertion (E46) Protein-calorie malnutrition, unspecified severity ([facility]) (D68.9) Coagulation defect, unspecified ([facility]) (M75.21) Biceps tendonitis on right LS T-score -2.7, Right Hip T-score , Left Hip T-score -4.1 LS Z-score -1.6, Right Hip Z-score , Left Hip Z-score -2.9 The patient has osteoporosis. Risk factors: age, post-menopausal status, myositis and scleroderma overlap, long-term prednisone use, hysterectomy at age 45 Fracture history: vertebral fracture, R tibial plateau fracture and L shoulder. Her calcium intake is low, 450 mg with diet and no regular Ca/Vit D supplement prior. Her vitamin D level was normal when last checked. Current osteoporosis treatment: Evenity (started 01/2023). Past osteoporosis treatment: Reclast one infusion 2016 PLAN: Osteoporosis -Reviewed available DXA and labs. -She is currently on Evenity and tolerating without any side effects. She is scheduled to finish this in December. -Recommend consolidation with Reclast. She received this in the past without any side effects. -Recommend obtaining additional labs as ordered below. -Will order Reclast and plan for one month after completing Evenity. -I recommend vitamin D at a dose of 800 -1,000 international unit(s) QD if vitamin D is in the normal range; this will be adjusted if vitamin D is low -Additionally recommend calcium at a dose of 0706-7545 mg QD in divided doses. If not obtained through the diet, recommend adding a calcium supplement as needed. -Other measures to prevent and treat osteoporosis and its complications are also recommended and have been discussed during this visit. Those include practicing aerobic exercise, limiting the intake of alcohol, and preventing falls (e.g., doing exercises to maintain balance, wearing sensible shoes, keeping good lightening in the house, removing home hazards, and using assistive devices if necessary). 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 Bills. Scheduled for follow up. -PFTS and CXR stable -Consider high res CT chest. Ordered today. Biceps tendonitis -Recommend referral to Dr. Mckeon/tam for further evaluation. I spent a total of 30 minutes on the date of the service which included preparing to see the patient, [id number] patient care, completing clinical documentation, obtaining and/or reviewing separately obtained history, performing a medically appropriate examination, counseling and educating the patient/family/caregiver, and ordering medications, tests, or procedures. Donnie Snow MD Office Visit on 10/17/23 CT CHEST WO IVCON COMPREHENSIVE METABOLIC PANEL VITAMIN D 25 HYDROXY COMPLETE BLOOD COUNT AND DIFFERENTIAL CONSULT TO ORTHOPAEDIC SURGERY documented in this encounter [facility] 10-11-2023 Miscellaneous Notes Images from the original note were not included. Most recent Rheumatology visit: 04/20/2023 (with Sonal Loco) Rheumatology Care Team: None on file Recent Office Visits - This Specialty 04/20/2023 Age-related osteoporosis without current pathological fracture Rheumatology Sonal Loco PA-C 01/13/2023 Age-related osteoporosis without current pathological fracture Rheumatology Donnie Snow MD 10/09/2018 Asymptomatic postmenopausal status Rheumatology Rey Fuentes MD Upcoming Rheumatology Appointments - Next 365 Days Visit Type Date Time Department [facility] 10/17/2023 2:30 PM [facility] A50 CBC: Latest Ref Rng & Units 02/24/2021 04/20/2023 CBC WBC 3.70 - 11.00 k/uL 6.74 9.40 Hemoglobin 11.5 - 15.5 g/dL 8.4 13.3 Hematocrit 36.0 - 46.0 % 27.7 42.7 Platelet Count 150 - 400 k/uL 404 318 Vitamin D: None on file in the last 6 months LFT: Latest Ref Rng & Units 04/20/2023 07/29/2023 CMP Sodium 136 - 144 mmol/L 140 137 Potassium 3.7 - 5.1 mmol/L 4.8 4.1 Chloride 97 - 105 mmol/L 99 101 CO2 22 - 30 mmol/L 28 29 Glucose 74 - 99 mg/dL 139 93 BUN 7 - 21 mg/dL 17 13 Creatinine 0.58 - 0.96 mg/dL 0.37 0.38 Calcium 8.5 - 10.2 mg/dL 9.7 9.2 Hepatic Function: Creatinine: Latest Ref Rng & Units 04/20/2023 07/29/2023 Creatinine Creatinine 0.58 - 0.96 mg/dL 0.37 0.38 ESR/CRP: Latest Ref Rng & Units 12/03/2014 04/20/2023 ESR, WSR WSR 0 - 20 mm/hr 33 46 Latest Ref Rng & Units 02/08/2021 04/20/2023 CRP CRP <0.9 mg/dL 9.2 <0.3 Uric Acid: None on file in the last 6 months Open Standing (Multiple Instance) Lab Orders Remain Interval Expires Ordered Last Rel. BASIC METABOLIC PNL [SQBMP] 3/4 Every 3 months 04/20/24 04/20/23 07/29/23 Auth. provider: Sonal Murray PA-C Assoc. diagnoses: Medication monitoring encounter Open Future (Single Instance) Lab Orders None documented in this encounter [facility] 09-27-2023 History of Present illness Narrative Subjective Patient ID: Tennille Ortiz is a 58 y.o. female who presents for Cellulitis (Did not finish out the Levaquin - was getting nauseous/weak - only took 5 days worth). Here to follow up cellulitis Right forearm. Has 4 pills of Levaquin left. Medication was causing too much nausea and weakness. No vomiting. Quit taking it couple of days ago. Able to eat again. Still weak, but not quit as bad. Starting to sleep a little better. Area seems a little better at times, then worse again. Started getting warm again today. Review of Systems Constitutional: Positive for fatigue. Respiratory: Negative. Cardiovascular: Negative. Gastrointestinal: Negative. Skin: Redness, tenderness right lower arm. Objective Physical Exam Constitutional: Appearance: Normal appearance. HENT: Head: Normocephalic. Eyes: Conjunctiva/sclera: Conjunctivae normal. Musculoskeletal: Cervical back: Neck supple. Skin: General: Skin is warm and dry. Comments: Right lower arm with mildly swelled, reddish/slightly purple area distally/medial/outer aspect. No drainage, tender to touch. Neurological: Mental Status: She is alert. Psychiatric: Mood and Affect: Mood normal. Assessment/Plan Diagnoses and all orders for this visit: Inflammatory disorder of upper extremity - predniSONE (Deltasone) 20 mg tablet; Take 1 tablet (20 mg) by mouth once daily for 10 days. Other orders - Follow Up In Primary Care - Established Dr. De evaluated and advised. Will start higher dose of prednisone daily until appointment with him 10/06/23. To call or follow up sooner worsens/changes/concerns COY Benitez 09/27/23 9:50 AM documented in this encounter [facility] Work Phone: 09-27-2023 Instructions COY Benitez - 09/27/2023 10:00 AM EDT Follow up with Dr. De as scheduled 10/06/23, sooner worsens/changes/concerns documented in this encounter [facility] Work Phone: 09-23-2023 Nurse Note Patient presents with: Imm/Inj Pt is identified by name and birthdate: Yes. Allergies and medications reviewed. Latex allergy? No. Does this patient have: Unplanned weight loss or gain of greater than 10 pounds, or a change of appetite over the last year? No Does the patient have any concerns about safety in the home/falls? Not at risk for falls Has the patient fallen in the past year? No Does the patient have difficulty performing or completing routine daily living activities? No Does this patient have concerns about personal safety? No Is patient having pain? Pain: No=0 (pain 0 on a scale of 0-10). Health Maintenance: Reviewed and updated. Does patient have MyChart access or Caregiver proxy: yes Pt/Caregiver willingness and readiness to learn assessed: Yes. Barriers: none evenity injection administered, Left lower abd., tolerated well, no immediate adverse reactions noted. Alvina Haney LPN documented in this encounter [facility] 09-20-2023 History of Present illness Narrative Subjective Patient ID: Tennille Ortiz is a 58 y.o. female who presents for pt c/o right wrist cellulitis (Pt c/o upper right arm pain which started today , Pt was treated by urgent care and [facility]). HPI R forearm cellulitis, has been tx with Bactrim BID for 12 days, had improved but has not somewhat worsened in spite of the Bactrim. Has seen ortho for R shoulder/bicep tendinitis pain which has seemed to worsen today. US doppler R UE showed no clots 12 days ago. Review of Systems Constitutional: Negative. Respiratory: Negative. Cardiovascular: Negative. Gastrointestinal: Negative. Objective BP 112/70 Pulse 68 Temp 36.5 C (97.7 F) Ht 1.575 m (5' 2) Wt (!) 42.6 kg (94 lb) LMP (LMP Unknown) SpO2 96% BMI 17.19 kg/m Physical Exam Constitutional: General: She is not in acute distress. Appearance: Normal appearance. She is not ill-appearing. HENT: Head: Normocephalic and atraumatic. Eyes: Extraocular Movements: Extraocular movements intact. Conjunctiva/sclera: Conjunctivae normal. Cardiovascular: Rate and Rhythm: Normal rate. Pulmonary: Effort: Pulmonary effort is normal. Abdominal: General: There is no distension. Musculoskeletal: General: Swelling and tenderness present. Cervical back: Normal range of motion. Skin: General: Skin is warm and dry. Neurological: General: No focal deficit present. Mental Status: She is alert and oriented to person, place, and time. Psychiatric: Mood and Affect: Mood normal. Behavior: Behavior normal. Thought Content: Thought content normal. Judgment: Judgment normal. Assessment/Plan Stop Bactrim, Rx Levaquin 500mg BID Rx ketorolac arm pain Follow up with Sharon in 1 week documented in this encounter [facility] Work Phone: 09-14-2023 History of Present illness Narrative Subjective Patient ID: Tennille Ortiz is a 58 y.o. female. Chief Complaint: Follow-up and Pain of the Right Shoulder (Patient is here for follow up after having a venous doppler of her right arm completed in the ER on the 09/08/2023. She is in a lot of pain today.) Right Shoulder Tennille is a pleasant 58 yo presenting today for FUV R shoulder pain, limited ROM Cortisone injection of the right shoulder from 07/28/2023 offered little short-term improvements. Patient is here in regards to the ongoing shoulder problems, review of neck injections for ongoing headaches as well as recent ED visit for duplex ultrasound result review. Patient presented to ED on 09/08/2023 with right forearm cellulitis, duplex ultrasound was obtained and patient states was referred back to orthopedics. Patient has seen her PCP regarding the cellulitis, was extended on prescription Bactrim for the forearm. Overall symptoms are improving, swelling is decreasing and skin dark pink in color versus red, swollen and shiny as an onset. Patient states she had neck injections on 09/06/2023 with her neurologist in [facility], something went wrong and she felt a prick with the injection where she has not in the past. Patient states she had increased headache for couple days afterwards. No new injuries. Patient is frustrated with decreasing range of motion and increasing difficulties with ADLs. Reports moderately good improvement with muscle pain and spasms with use of tizanidine on as needed basis. She is due to follow-up with her occup therapist next month. Requesting refill today. Review of Systems Constitutional: Negative. HENT: Negative. Respiratory: Negative. Cardiovascular: Negative. Endocrine: Negative. Musculoskeletal: Positive for arthralgias, gait problem and myalgias. Skin: Negative. Hematological: Negative. Psychiatric/Behavioral: Negative. Objective Right Shoulder Exam Tenderness The patient is experiencing tenderness in the biceps tendon and acromioclavicular joint. Range of Motion Active abduction: 40 External rotation: 20 Forward flexion: 50 Other Erythema: absent Sensation: normal Pulse: present Comments: Patient has limited range of motion to shoulder and distal joints secondary to scleroderma. Current symptoms slightly decreased from baseline. Patient is tender over the biceps tendon into the musculo tendinous junction. The right forearm does have dark pink coloring towards the dorsal radial surface of the distal forearm, there are no openings or drainage noted. Mild swelling noted. Skin is sensitive to touch. Distal neurovascular intact with radial pulse palpable +2. Image Results: Diagnosis/ICD: Pain in right arm-M79.601 CPT Codes: 72719 Peripheral venous duplex scan for DVT Limited Pertinent History: Right pain at wrist. CONCLUSIONS: Right Upper Venous: No evidence of acute deep vein thrombus visualized in the right upper extremity. There are chronic changes visualized in the proximal cephalic, mid cephalic and distal cephalic veins. Non-vascular structures noted proximal lateral arm measuring 0.6 x 0.5 x 0.3 cm and distal medial arm measuring 0.5 x 0.3 x 0.4 cm. Left Upper Venous: The subclavian vein demonstrates a normal spontaneous and phasic flow. Imaging & Doppler Findings: Right Compressible Thrombus Flow Internal Jugular Yes None Spontaneous/Phasic Subclavian Yes None Spontaneous/Phasic Subclavian Proximal Yes None Spontaneous/Phasic Subclavian Mid Yes None Spontaneous/Phasic Subclavian Distal Yes None Spontaneous/Phasic Axillary Yes None Spontaneous/Phasic Brachial Yes None Cephalic Partial Chronic Basilic Yes None Left Flow Subclavian Spontaneous/Phasic [id number] Karla Mast MD INGS: No acute fracture or dislocation. Moderate-severe degenerative changes of the glenohumeral and acromioclavicular joints. Acromiohumeral interval is maintained Imaged lung field is clear IMPRESSION: No evidence of acute fracture or dislocation. Moderate-severe osteoarthritis. Signed by: Renato Smalls 07/06/2023 10:16 PM Dictation workstation: [id number] Reviewed ED visit note and PCP PA note from yesterday on date of visit for current treatments. Assessment/Plan Encounter Diagnoses: documented in this encounter [facility] Work Phone: 09-13-2023 History of Present illness Narrative Patient is here today for a ER follow up [facility] DATE OF SERVICE 09/08/23 Diagnosis cellulitis, right wrist New medications started bactrim, perocet Any new problems since your ER visit she feels this is area that is not healed yet. US done 09/08/23 Subjective Patient ID: Tennille Ortiz is a 58 y.o. female who presents for ER Follow-up. Here to follow up ER visit 09/08/23 - Report reviewed. US right arm reviewed. Has been on the Bactrim since the ER visit. Started getting better, but seems a little worse the past 1-2 days. States much better than when I went to the ER. She showed a phone photo of her arm at the ER, which showed swelling, bright red coloration. Appears much improved today. Spoke with pharmacist regarding her multiple allergies and potential antibiotic if needed. If worsens can try Levaquin. She has taken Cipro in the past and done OK with it. Review of Systems Constitutional: Negative. Negative for fever. HENT: Negative. Respiratory: Negative. Cardiovascular: Negative. Gastrointestinal: Negative. Skin: Negative. Cellulitis Psychiatric/Behavioral: Negative. Objective Physical Exam Constitutional: Appearance: Normal appearance. HENT: Head: Normocephalic. Eyes: Conjunctiva/sclera: Conjunctivae normal. Cardiovascular: Rate and Rhythm: Normal rate and regular rhythm. Pulmonary: Effort: Pulmonary effort is normal. Breath sounds: Normal breath sounds. Skin: General: Skin is warm and dry. Comments: Right lower inner forearm with dark reddish coloration, no swelling, mild tenderness. Neurological: Mental Status: She is alert. Psychiatric: Mood and Affect: Mood normal. Assessment/Plan Diagnoses and all orders for this visit: Right forearm cellulitis - sulfamethoxazole-trimethoprim (Bactrim) 400-80 mg tablet; Take 1 tablet by mouth 2 times a day for 7 days. Follow up ER visit Will continue her Bactrim for another week. To call if symptoms worsen significantly and can start Levaquin 750mg daily x 5 days. Will check medication interactions if we need to use this. Follow up as needed/as scheduled COY Benitez 09/13/23 1:07 PM documented in this encounter [facility] Work Phone: 09-13-2023 Instructions COY Benitez - 09/13/2023 1:00 PM EDT Follow up symptoms not resolving completely or worsens/changes/concerns documented in this encounter [facility] Work Phone: 09-08-2023 Emergency department Note HPI Chief Complaint Patient presents with Wrist Pain Pt noticed red светлана on right wrist for 9 days. Redness has grown and is more painful. Pain 10/10 Limitations to History: None HPI: 58-year-old female presents with concern for pain to her right forearm. States is been present over the past 10 days. Increasing redness over the past 2 days. Denies any trauma. States that she was recently treated for an injury to her bicep secondary to a tourniquet. Denies any fever, chills, nausea, vomiting. Additional History Obtained from: Family at the bedside. ------ Physical Exam: VS: As documented in the triage note and EMR flowsheet from this visit were reviewed. Appearance: Alert. cooperative, in no acute distress. Skin: Erythema from the level of the right mid forearm to the wrist. HENT: Normocephalic, atraumatic. Musculoskeletal: Passive range of motion of the right wrist intact. History of polymyositis as well as scleroderma with decreased range of motion at baseline. Neurological: Sensation grossly intact to the right upper extremity. Psychiatric: Appropriate mood and affect. Aimee Coma Scale Score: 15 Patient History Past Medical History: Diagnosis Date Encounter for follow-up examination after completed treatment for conditions other than malignant neoplasm 10/01/2019 Hospital discharge follow-up Past Surgical History: Procedure Laterality Date CT ANGIO NECK 09/19/2022 CT NECK ANGIO W AND WO IV CONTRAST [facility] CT CT HEAD ANGIO W AND WO IV CONTRAST 09/19/2022 CT HEAD ANGIO W AND WO IV CONTRAST [facility] CT OTHER SURGICAL HISTORY 03/12/2021 Knee replacement OTHER SURGICAL HISTORY 07/18/2020 Finger amputation OTHER SURGICAL HISTORY 07/18/2020 Appendectomy OTHER SURGICAL HISTORY 07/18/2020 Cystocele repair OTHER SURGICAL HISTORY 07/18/2020 Hip replacement OTHER SURGICAL HISTORY 07/18/2020 Hysterectomy vaginal OTHER SURGICAL HISTORY 07/18/2020 Tracheostomy OTHER SURGICAL HISTORY 07/18/2020 Tubal ligation Family History Problem Relation Name Age of Onset Coronary artery disease Mother Stroke Father Heart attack Father Diabetes Daughter Social History Tobacco Use Smoking status: Never Smokeless tobacco: Never Substance Use Topics Alcohol use: Never Drug use: Never Physical Exam ED Triage Vitals [09/08/23 0849] Temperature Heart Rate Respirations BP 36.7 C (98 F) 75 16 (!) 125/47 Pulse Ox Temp Source Heart Rate Source Patient Position 97 % Temporal Monitor Lying BP Location FiO2 (%) Left arm -- Physical Exam ED Course & MDM Diagnoses as of 09/08/23 1054 Right forearm cellulitis Medical Decision Making Medical Decision Making: Patient appears well nontoxic. Vital signs within normal limits. Afebrile. Evidence of cellulitis to the right forearm. No evidence of DVT. Evidence of 2 nonvascularized structures within the arm. Patient is currently following with orthopedic surgery for pain in her upper arm. I did advise that they review this imaging on her next visit. Patient will be placed on Keflex as well as Percocet. Stable at time of discharge. Differential Diagnoses Considered: Cellulitis, DVT, septic arthritis Escalation of Care: Appropriate for discharge and follow-up with primary care. Prescription Drug Consideration: Keflex and Percocet. Procedure Procedures Geraldo Philippe DO 09/08/23 105 documented in this encounter [facility] Work Phone: 09-08-2023 Physician Emergency department Note HPI Chief Complaint Patient presents with Wrist Pain Pt noticed red светлана on right wrist for 9 days. Redness has grown and is more painful. Pain 10/10 Limitations to History: None HPI: 58-year-old female presents with concern for pain to her right forearm. States is been present over the past 10 days. Increasing redness over the past 2 days. Denies any trauma. States that she was recently treated for an injury to her bicep secondary to a tourniquet. Denies any fever, chills, nausea, vomiting. Additional History Obtained from: Family at the bedside. ------ Physical Exam: VS: As documented in the triage note and EMR flowsheet from this visit were reviewed. Appearance: Alert. cooperative, in no acute distress. Skin: Erythema from the level of the right mid forearm to the wrist. HENT: Normocephalic, atraumatic. Musculoskeletal: Passive range of motion of the right wrist intact. History of polymyositis as well as scleroderma with decreased range of motion at baseline. Neurological: Sensation grossly intact to the right upper extremity. Psychiatric: Appropriate mood and affect. Aimee Coma Scale Score: 15 Patient History Past Medical History: Diagnosis Date Encounter for follow-up examination after completed treatment for conditions other than malignant neoplasm 10/01/2019 Hospital discharge follow-up Past Surgical History: Procedure Laterality Date CT ANGIO NECK 09/19/2022 CT NECK ANGIO W AND WO IV CONTRAST [facility] CT CT HEAD ANGIO W AND WO IV CONTRAST 09/19/2022 CT HEAD ANGIO W AND WO IV CONTRAST [facility] CT OTHER SURGICAL HISTORY 03/12/2021 Knee replacement OTHER SURGICAL HISTORY 07/18/2020 Finger amputation OTHER SURGICAL HISTORY 07/18/2020 Appendectomy OTHER SURGICAL HISTORY 07/18/2020 Cystocele repair OTHER SURGICAL HISTORY 07/18/2020 Hip replacement OTHER SURGICAL HISTORY 07/18/2020 Hysterectomy vaginal OTHER SURGICAL HISTORY 07/18/2020 Tracheostomy OTHER SURGICAL HISTORY 07/18/2020 Tubal ligation Family History Problem Relation Name Age of Onset Coronary artery disease Mother Stroke Father Heart attack Father Diabetes Daughter Social History Tobacco Use Smoking status: Never Smokeless tobacco: Never Substance Use Topics Alcohol use: Never Drug use: Never Physical Exam ED Triage Vitals [09/08/23 0849] Temperature Heart Rate Respirations BP 36.7 C (98 F) 75 16 (!) 125/47 Pulse Ox Temp Source Heart Rate Source Patient Position 97 % Temporal Monitor Lying BP Location FiO2 (%) Left arm -- Physical Exam ED Course & MDM Diagnoses as of 09/08/231053 Right forearm cellulitis Medical Decision Making Medical Decision Making: Patient appears well nontoxic. Vital signs within normal limits. Afebrile. Evidence of cellulitis to the right forearm. No evidence of DVT. Evidence of 2 nonvascularized structures within the arm. Patient is currently following with orthopedic surgery for pain in her upper arm. I did advise that they review this imaging on her next visit. Patient will be placed on Keflex as well as Percocet. Stable at time of discharge. Differential Diagnoses Considered: Cellulitis, DVT, septic arthritis Escalation of Care: Appropriate for discharge and follow-up with primary care. Prescription Drug Consideration: Keflex and Percocet. Procedure Procedures Geraldo Philippe DO 09/08/231053 [facility] Work Phone: 08-26-2023 Nurse Note Patient presents with: Imm/Inj Pt is identified by name and birthdate: Yes. Allergies and medications reviewed. Latex allergy? No. Does this patient have: Unplanned weight loss or gain of greater than 10 pounds, or a change of appetite over the last year? No Does the patient have any concerns about safety in the home/falls? At risk due to: imbalance Has the patient fallen in the past year? No Does the patient have difficulty performing or completing routine daily living activities? No Does this patient have concerns about personal safety? No Is patient having pain? Pain: Yes, pain rated 8 on a scale of 0-10 (0=none, 10=worst). Location: neck, head, arm Character: aching, sharp, stabbing, and throbbing. Duration: 13 years. Frequency: occurs constantly. Health Maintenance: Reviewed and updated. Does patient have MyChart access or Caregiver proxy: yes Pt/Caregiver willingness and readiness to learn assessed: Yes. Barriers: none evenity injection administered, right lower abd.tolerated well, no immediate adverse reactions noted. Alvina Haney LPN documented in this encounter [facility] 08-22-2023 Instructions Izabella Bass MD - 08/22/2023 10:59 AM EST Hi Tennille Ortiz, You were at the [facility] today for an appointment with Dr. Awad. The following describes your care plan and instructions: - Schedule Right Occipital Nerve Block Please call the clinic with any questions or issues. Thank you for allowing us to participate in your care. [facility] August 22, 2023 documented in this encounter [facility] 08-22-2023 History of Present illness Narrative [facility] Follow Up Evaluation Date: August 22, 2023 - 10:30 AM Chief Complaint: Patient presents with: Follow Up Medication Update SUBJECTIVE: Tennille Ortiz is a 58 year old female with a pertinent past medical history of scleroderma, osteoporosis, and chronic steroid use who presents to [facility] for a follow up appointment for chronic neck pain. The plan from the last visit on 05/04/2023 was: - Cervical spine SPECT to rule out inflammation - Counseled the patient regarding the importance of activity modification and exercise. - Follow up: We will follow up once the SPECT result is out.. Please call the clinic to schedule an appointment . Since the last visit, the patient's pain has been worsening after hitting her head on the freezer door in June,. She states that while her prior nerve block was extremely effective at mitigating her pain symptoms, her pain has returned and changed slightly. She now experiences spasms of shooting pain into her occiput, but rarely in her neck. Patient also complains that her pain is in her neck and right occiput extending to her parietal region. Her pain is overall worse in her neck. She is interested in repeating a Right Occipital Nerve Block if it can be offered. Her recent Cervical Spine SPECT revealed significant tracer uptake in the bilateral superior facet joints of C1. Patient was informed during this visit that her C1 facet disease will likely lead to autofusion; Dr. Awad discussed this with a Spine Surgeon. Pain Location: Neck Does the pain radiate? Yes, to the occipital and parietal regions Duration: Years. Symptoms have been persistent. Pain character: Aching, severe, and throbbing Current pain intensity (on a scale of 0-10/10): 8 Best pain intensity (on a scale of 0-10/10): 5 Worst pain intensity (on a scale of 0-10/10): 10 Exacerbating factors: Neck flexion Alleviating factors: Neck extension Sleep disturbance? Yes The patient denies unintentional weight loss and fevers, chills, or night sweats. Physical Therapy/Home Exercise: No Current Pain Medications and Dosages: - Opioids: None - NSAIDs: Ibuprofen 800mg PRN - Anti-Depressants: None - Anti-Convulsants: None - Others: Flexeril 10mg TID Prior Treatments: Medications, Nerve Blocks Prior Pain Procedures (with percentage of pain relief and duration of relief): 03/29/2023 - Right Occipital Nerve Block 100% pain relief for 3 months OARRS Report: Reviewed: The patient's OARRS report was reviewed and is consistent with the reported medication use. Pain Medications Reviewed: Yes Pertinent Imaging: Cervical MRI (12/2022) Cervical soft tissues: The paraspinal soft tissues are within normal limits. Disc protrusions and facet and uncovertebral degenerative changes seen at multiple levels throughout the cervical spine. C2-C3: Canal and foramina are patent. C3-C4: Mild left foraminal narrowing. Canal and right neural foramen are patent. C4-C5: Mild canal stenosis and mild bilateral foraminal narrowing. C5-C6: Mild canal stenosis. Neural foramina are patent. C6-C7: Mild to moderate canal stenosis. Mild to moderate left and mild right foraminal narrowing. C7-T1: Canal and foramina are patent. 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 Vitamin D deficiency PAST SURGICAL HISTORY Procedure Laterality Date APPENDECTOMY ARTHRP ACETBLR/PROX FEM PROSTC AGRFT/ALGRFT right hip DILATION & CURETTAGE DX&/THER NONOBSTETRIC Dilation & curettage LIG/TRNSXJ FLP TUBE ABDL/VAG APPR UNI/BI Tubal ligation MIDLINE INSERTION/CONSULT 08/22/2017 PAST SURGICAL HISTORY OF GI tube PAST SURGICAL HISTORY OF right vascular reconstruction PAST SURGICAL HISTORY OF tracheostomy PAST SURGICAL HISTORY OF removal of calcium deposits from right hand PAST SURGICAL HISTORY OF 2010 Hysterectomy Ovaries Intact Social History Tobacco Use Smoking status: Never Smokeless tobacco: Never Substance Use Topics Alcohol use: Yes Comment: occasionally Drug use: No FAMILY HISTORY Problem Relation Age of Onset Heart Mother Heart Father Cervical Cancer Sister Alzheimer's Disease Maternal Grandmother Cancer Maternal Grandmother unsure Heart Paternal Grandfather other (negative [Other]) Other negative for breast, ovary or endometrial ALLERGIES Allergen Reactions Fortaz [Ceftazidime] Hives Hives, itching, peeling, Aspirin capillaries break Betadine [Povidone-* Itching Clindamycin Other: See Comments Skin peel, red rash, weight gain, swelling in the face and legs. Itchy. Doxycycline Shortness of Breath, Myalgia Erythromycin Base diarrhea Penicillins Hives Tolerated zosyn 02/09 Current Outpatient Medications Medication Sig predniSONE (DELTASONE) 1 mg tablet Take 4 tablets by mouth once daily. NO REFILLS WITHOUT APPOINTMENT WITH DR FUENTES romlowumab-aqq (EVENITY SUBCUTANEOUS) Inject subcutaneously once every month. rOPINIRole (REQUIP) 0.5 mg tablet Take 0.5 mg by mouth as needed. calcium carbonate (CALCIUM 600 ORAL) Take 100 Units by mouth once daily. unknown dose calcium carbonate (CALCIUM 300 ORAL) Take by mouth. unknown dosage cholecalciferol (VITAMIN D3) 400 unit tab Take by mouth. multivitamin tablet Take by mouth. atorvastatin (LIPITOR) 40 mg tablet Take 1 tablet by mouth daily at bedtime. rOPINIRole (REQUIP) 0.25 mg tablet Take 1 tablet by mouth twice daily. albuterol (PROVENTIL) 2.5 mg /3 mL (0.083 %) nebulizer solution Use 3 mL via nebulizer every 4 hours. sodium chloride 7% solution 7 % nebu Inhale 4 mL as instructed twice daily. sodium chloride 7% solution 7 % nebu Inhale 4 mL as instructed twice daily. Ibuprofen 200 mg cap Take 800 mg by mouth three times daily. levothyroxine (SYNTHROID) 100 mcg tablet Take 1 tablet by mouth daily before breakfast. sertraline (ZOLOFT) 50 mg tablet Take 1 tablet by mouth daily at bedtime. cyclobenzaprine (FLEXERIL) 10 mg tablet Take 1 tablet by mouth three times daily as needed for muscle spasm or pain. Watch for drowsiness (Patient not taking: Reported on 07/29/2023) Nebulizer and Compressor For Neb Bekah 1 Device as needed. Use as directed. Current Facility-Administered Medications Medication Dose Route Frequency romosozumab-aqqg 210 mg injection (EVENITY) 210 mg SUBCUTANEOUS q 1 MONTH Questionnaires: Patient Entered Questionnaires PROMIS Score Percentiles PROMIS Global Health Scale 11/06/2022 02/17/2023 08/20/2023 Physical Health Percentile 4 4 4 Mental Health Percentile 9 2 2 Physical Health 02/17/2023 04/19/2023 08/20/2023 Physical Function Percentile 1 2 0 Pain Interference Percentile 1 1 1 Percentiles provide an indication of how the patient's score ranks in relation to the general population. Higher percentile rankings indicate better function/quality of life. 50th percentile is the average of the general population and indicates half of respondents had a worse score. > 31st percentile is within normal limits or better * < 31st percentile is at least SD worse than population, which may be clinically relevant < 16th percentile is at least 1 SD worse than population and warrants attention Depression Screening: PHQ-9 11/06/2022 12/07/2022 02/17/2023 Score 9 11 11 PHQ-9 Self Harm 11/06/2022 12/07/2022 02/17/2023 Question 9 Not at all Not at all Not at all PHQ-9 Self-Harm (Item 9) response options: 0 Not at all 1 Several days 2 More than half the days 3 Nearly every day PHQ-9 Levels: 0-4 Minimal depression 5-9 Mild depression 10-14 Moderate depression 15-19 Moderately severe depression 20-27 Severe depression PHQ-9 Score 02/17/2023 11 12/07/2022 11 11/06/2022 9 10/09/2018 11 12/31/2016 13 03/24/2015 4 04/10/2012 0 04/19/2011 0 02/15/2011 6 (0-4) minimal depression, (5-9) mild depression, (10-14) moderate depression, (15-19) moderately severe depression, (20-27) severe depression No flowsheet data found. No flowsheet data found. REVIEW OF SYSTEMS: GENERAL: No weight loss, malaise or fevers. HEENT: Positive for frequent or significant headaches. NECK: Negative for lumps, goiter, pain and significant neck swelling. Positive for neck pain. RESPIRATORY: Negative for cough, wheezing or shortness of breath. CARDIOVASCULAR: Negative for chest pain, leg swelling or palpitations. GI: Negative for abdominal discomfort, blood in stools or black stools or change in bowel habits. MUSCULOSKELETAL: Positive for joint pain or swelling, back pain or muscle pain. SKIN: Negative for lesions, rash, and itching. PSYCH: Negative for sleep disturbance, mood disorder and recent psychosocial stressors. HEMATOLOGY/LYMPHOLOGY: Negative for prolonged bleeding, bruising easily or swollen nodes. NEURO: No history of headaches, syncope, paralysis, seizures or tremors. All other reviewed and negative other than HPI. OBJECTIVE: BP 102/55 Pulse 73 Temp (Src) 97.5 (Temporal Artery) Resp 16 Ht 5' 2 (1.58m) Wt 97 lb (44.0kg) SpO2 95% LMP 04/12/2010 BMI 17.74 kg/(m^2). PHYSICAL EXAMINATION: General:Wheelchair, well appearing, alert, and in no acute distress Psych: Appropriate affect Skin: skin color, texture, turgor normal, no rashes or lesions HEET: Normocephalic, atraumatic, sclera non-icteric CV: Regular rate and rhythm - pulses equal Resp: Unlabored on room air GI: Soft, non-tender, non-distended. : not examined Musculoskeletal: Neck: Tenderness over the superior cervical spinous process in the suboccipital region, and right and left upper paraspinal muscles, limited range of motion with rotation, Spurling negative on left and right Back: No pain on palpation of the lumbar spine. Full ROM without reproducible pain. Straight leg raising test negative bilaterally. Neurological: Mental Status: alert, oriented to person, place, and time Cranial Nerves: Cranial nerves are intact Reflexes: Deep tendon reflexes are 2+ all throughout. Motor Strength: Motor strength and tone are 5/5 all throughout. Sensory: Sensation was intact to light touch all throughout. Gait: The patient uses an assistive device - wheel chair. ASSESSMENT: Tennille Ortiz is a 58 year old female with a pertinent past medical history of scleroderma, osteoporosis, and chronic steroid use who presents to [facility] for a follow up appointment for chronic neck pain. Since the last visit, the patient's pain has been worsening after hitting her head on the freezer door in June,. She states that while her prior nerve block was extremely effective at mitigating her pain symptoms, her pain has returned. A recent Cervical Spine SPECT revealed significant tracer uptake in the bilateral superior facet joints of C1. Patient was informed during this visit that her C1 facet disease will likely lead to autofusion; Dr. Awad discussed this with a Spine Surgeon. We discussed repeating a Right Occipital Nerve Block during today's visit. (M54.81) Occipital neuralgia of right side (primary encounter diagnosis) (M47.812) Arthropathy of cervical facet joint PLAN: - Schedule Right Occipital Nerve Block with ultrasound guidance. - Counseled the patient regarding the importance of stress management. - Follow up: Return to clinic for above procedure. The above plan and management options were discussed at length with patient. Patient is in agreement with the above and verbalized understanding. It will be communicated with the referring physician via electronic record, fax, or mail. Izabella Bass MD Pain Medicine Fellow August 22, 2023 Teaching Statement I have interviewed and examined the patient and confirm the pertinent findings. I have discussed the case with the resident/fellow and agree with the findings and plan as documented. Chris Awad MD August 22, 2023 7:00 PM documented in this encounter [facility] 07-28-2023 Evaluation + Plan note Associated Problem(s): Biceps tendonitis on right We discussed symptom control with OTC Tylenol and topical pain relievers. Patient tolerated cortisone injection well with positive lidocaine suppression at today's visit. I encouraged light activity today and gradually resume normal activities over the next several days. Beginning in 1 week, I am providing biceps tendinitis home exercises to begin and advance as tolerated. Plan will be to follow-up here in approximately 6 weeks, sooner for changes or concerns. Patient in agreement with plan of care. This note was generated using [employer] software. It may contain errors in wording, punctuation or spelling. [facility] Work Phone: 07-28-2023 Miscellaneous Notes Associated Problem(s): Biceps tendonitis on right We discussed symptom control with OTC Tylenol and topical pain relievers. Patient tolerated cortisone injection well with positive lidocaine suppression at today's visit. I encouraged light activity today and gradually resume normal activities over the next several days. Beginning in 1 week, I am providing biceps tendinitis home exercises to begin and advance as tolerated. Plan will be to follow-up here in approximately 6 weeks, sooner for changes or concerns. Patient in agreement with plan of care. This note was generated using [employer] software. It may contain errors in wording, punctuation or spelling. documented in this encounter [facility] Work Phone: 07-28-2023 History of Present illness Narrative Associated Order(s): L Inj/Asp Post-Procedure Diagnose(s): Biceps tendonitis on right Subjective Patient ID: Tennille Ortiz is a 58 y.o. female. Chief Complaint: Pain of the Right Shoulder HPI New prob R shoulder pain, limited ROM States she became ill and on April 17 she presented to the ED and had to have IV placement for fluids and medications. Patient states the tourniquet was on for an extended amount of time with multiple attempts for IV access. Patient had right upper arm pain that started after that and limited range of motion. Review of Systems Constitutional: Negative. HENT: Negative. Respiratory: Negative. Cardiovascular: Negative. Endocrine: Negative. Musculoskeletal: Positive for arthralgias, gait problem and myalgias. Skin: Negative. Hematological: Negative. Psychiatric/Behavioral: Negative. Objective Right Shoulder Exam Tenderness The patient is experiencing tenderness in the biceps tendon. Range of Motion Active abduction: 40 External rotation: 20 Forward flexion: 40 Other Erythema: absent Sensation: normal Pulse: present Comments: Patient has baseline limited range of motion secondary to scleroderma. Patient is very tender over the biceps tendon into the musculo tendinous junction. Mildly tender over the AC joint. Patient with baseline range of motion of the neck with no symptom flare. Distal range of motion at baseline with distal motor sensory intact. Image Results: XR shoulder right 2+ views Narrative: Interpreted By: Renato Smalls, STUDY: XR SHOULDER RIGHT 2+ VIEWS; ; 07/05/2023 12:13 pm INDICATION: Signs/Symptoms:right shoulder pain. COMPARISON: None. ACCESSION NUMBER(S): [id number] ORDERING CLINICIAN: EVAN DE FINDINGS: No acute fracture or dislocation. Moderate-severe degenerative changes of the glenohumeral and acromioclavicular joints. Acromiohumeral interval is maintained Imaged lung field is clear Impression: No evidence of acute fracture or dislocation. Moderate-severe osteoarthritis. Signed by: Renato Smalls 07/06/2023 10:16 PM Dictation workstation: [id number] Patient ID: Tennille Ortiz is a 58 y.o. female. L Inj/Asp (R biceps tendon sheath) on 07/28/2023 3:03 PM Indications: pain and joint swelling Details: 22 G needle, ultrasound-guided anterior approach Medications: 40 mg triamcinolone acetonide 40 mg/mL Outcome: tolerated well, no immediate complications We discussed risk and benefits of cortisone injection, patient wishes to proceed via verbal consent. Skin was prepped with Betadine, Vapocoolant spray and alcohol. Direct visualization using high-frequency linear probe of ultrasound was utilized to administer the injection of 40 mg Kenalog, 3 cc 1% lidocaine and 3 cc of bupivacaine, bandage applied and skin thouroughly cleansed prior to bandage to remove topical skin cleansers. Patient tolerated injection well lidocaine suppression. Images were saved under MRN number into the PACS system. Procedure, treatment alternatives, risks and benefits explained, specific risks discussed. Consent was given by the patient. Immediately prior to procedure a time out was called to verify the correct patient, procedure, equipment, technology support analyst and site/side marked as required. Patient was prepped and draped in the usual sterile fashion. Assessment/Plan Encounter Diagnoses: Problem List Items Addressed This Visit ICD-10-CM Biceps tendonitis on right - Primary M75.21 We discussed symptom control with OTC Tylenol and topical pain relievers. Patient tolerated cortisone injection well with positive lidocaine suppression at today's visit. I encouraged light activity today and gradually resume normal activities over the next several days. Beginning in 1 week, I am providing biceps tendinitis home exercises to begin and advance as tolerated. Plan will be to follow-up here in approximately 6 weeks, sooner for changes or concerns. Patient in agreement with plan of care. This note was generated using [employer] software. It may contain errors in wording, punctuation or spelling. Relevant Orders Point of Care Ultrasound (Completed) L Inj/Asp documented in this encounter [facility] Work Phone: 07-05-2023 History of Present illness Narrative Subjective Patient ID: Tennille Ortiz is a 58 y.o. female who presents for Shoulder Pain (Right shoulder pain) and Back Pain. Shoulder Pain Pertinent negatives include no fever. Back Pain Pertinent negatives include no fever. April 17 went to [facility] Had Flu B Had difficulty getting labs Right arm hurts where the tourniquet was applied and is getting worse Left back pain off and on At night is worse Hurts to sleep on it and comes and goes No pleuritic Polymyositis scleroderma severe Recent [place] 3 phase bone scan with sivere C1 arthrritis Dr Snow Review of Systems Constitutional: Positive for chills. Negative for fever. Musculoskeletal: Positive for back pain. Objective BP 122/68 Pulse 51 Wt (!) 43.1 kg (95 lb) SpO2 100% BMI 17.38 kg/m Physical Exam Vitals reviewed. Constitutional: Appearance: Normal appearance. HENT: Head: Normocephalic and atraumatic. Eyes: Conjunctiva/sclera: Conjunctivae normal. Cardiovascular: Rate and Rhythm: Normal rate and regular rhythm. Pulmonary: Effort: Pulmonary effort is normal. Breath sounds: Normal breath sounds. Musculoskeletal: Cervical back: Neck supple. Comments: Severe UE and thoracic deformity and missing distal digitis with contractures Trevor shoulder severely dec rom Right medial deltoid tender No edema of right UE and noraml radial pulse but has raynauds Skin: General: Skin is warm and dry. Neurological: General: No focal deficit present. Mental Status: She is alert and oriented to person, place, and time. Psychiatric: Mood and Affect: Mood normal. Behavior: Behavior normal. Thought Content: Thought content normal. Judgment: Judgment normal. Assessment/Plan Diagnoses and all orders for this visit: Pain in joint of right shoulder - XR shoulder right 2+ views; Future - diclofenac sodium (Voltaren) 1 % gel gel; Apply 1 Application topically 4 times a day. documented in this encounter [facility] Work Phone: 06-06-2023 History of Present illness Narrative Subjective Patient ID: Tennille Ortiz is a 58 y.o. female who presents for Medicare Annual Wellness Visit Subsequent. Had bone density completed at Rheumatology in 2022 Colonoscopy: none, declines Following with rheumatology, orthopedics, pulmonology Medicare wellness. Flu vaccine UTD Review of Systems Constitutional: Negative for activity change, appetite change and fever. Respiratory: Negative for shortness of breath. Cardiovascular: Negative for chest pain and leg swelling. Gastrointestinal: Negative for abdominal pain, diarrhea, nausea and vomiting. Musculoskeletal: Positive for arthralgias, back pain, myalgias and neck pain. Chronic Neurological: Negative for dizziness, light-headedness and headaches. Hematological: Does not bruise/bleed easily. Objective BP 128/80 (Patient Position: Sitting) Pulse 84 Ht 1.575 m (5' 2) Wt (!) 43.8 kg (96 lb 9.6 oz) BMI 17.67 kg/m Physical Exam Vitals reviewed. Constitutional: General: She is not in acute distress. Appearance: Normal appearance. She is not ill-appearing. Cardiovascular: Rate and Rhythm: Normal rate and regular rhythm. Pulmonary: Effort: Pulmonary effort is normal. Breath sounds: Normal breath sounds. Neurological: Mental Status: She is alert and oriented to person, place, and time. Psychiatric: Mood and Affect: Mood normal. Assessment/Plan Diagnoses and all orders for this visit: Routine general medical examination at health care facility - 1 Year Follow Up In Primary Care - Wellness Exam; Future Screening for cardiovascular condition - Lipid panel; Future Encounter for screening mammogram for breast cancer - BI mammo bilateral screening tomosynthesis; Future Multiple sclerosis (CMS/HCC) Chronic bronchitis, unspecified chronic bronchitis type (CMS/HCC) Hypothyroidism, unspecified type - TSH with reflex to Free T4 if abnormal; Future documented in this encounter [facility] Work Phone: 05-31-2023 Miscellaneous Notes Patient has been identified by name and date of : Yes Patient phoned to request the following prescription(s) If there are any questions regarding this prescription request, call at home at: [phone] (home) [phone] (cell) RX INSTRUCTIONS: Patient aware RX will be sent to pharmacy. No need to notify patient. Date of last office visit: 04/20/2023 (with Sonal Murray) Date of last [facility] visit: Visit date not found Date of future office visits: Upcoming Rheumatology Appointments - Next 365 Days Visit Type Date Time Department TI [facility] 10[facility]17[facility]23 2:30 PM [facility] Date of last eye exam: Last OCT Macula Exam No resulted procedures found. Last Visual Field Exam No resulted procedures found. Requested Prescriptions Pending Prescriptions Disp Refills predniSONE (DELTASONE) 1 mg tablet 120 tablet 0 Sig: Take 4 tablets by mouth once daily. NO REFILLS WITHOUT APPOINTMENT WITH DR FUENTES Prescriptions are usually addressed within 24-48 business hours. If patient states they cannot wait 24-48 business hours, please document details. Last 2 Encounter Wt Readings: Date: Wt: 05/27/2023 44 kg (97 lb) 05/05/2023 44 kg (97 lb) Last 2 Encounter BP Readings: Date: BP: 05/27/2023 107/70 05/04/2023 119/63 Sed Rate, Westergren Date Value Ref Range Status 04/20/2023 46 (H) 0 - 20 mm/hr Final TAYLOR Date Value Ref Range Status 01/05/2011 Positive (A) NEGAT Final Comment: Normal range : negative at a 1:40 serum dilution. No results found for: RF Hemoglobin (g/dL) Date Value 04/20/2023 13.3 02/24/2021 8.4 Hematocrit (%) Date Value 04/20/2023 42.7 02/24/2021 27.7 WBC (k/uL) Date Value 04/20/2023 9.40 02/24/2021 6.74 Platelet Count (k/uL) Date Value 04/20/2023 318 02/24/2021 404 CMP: Glucose 139 04/20/2023 BUN 17 04/20/2023 Creatinine 0.37 04/20/2023 Sodium 140 04/20/2023 Potassium 4.8 04/20/2023 Chloride 99 04/20/2023 CO2 Content, Venous 28 04/20/2023 Protein, Total 6.9 01/13/2023 Albumin 4.1 01/13/2023 Calcium 9.7 04/20/2023 Alkaline Phosphatase 72 01/13/2023 Bilirubin, Total 0.3 01/13/2023 AST 14 01/13/2023 ALT 67 02/24/2021 Damari Fernandes Ma documented in this encounter [facility] 05-27-2023 Nurse Note Pt here for injection of Evenity. Given sq, one in each arm. Pt tolerated well. Tammy Ochoa LPN documented in this encounter [facility] 05-25-2023 History of Present illness Narrative RADIOLOGY SERVICE PROGRESS NOTE SERVICE DATE: 05/25/2023 SERVICE TIME: 11:23 AM PATIENT IDENTITY VERIFICATION COMPLETED USING TWO (2) STANDARD IDENTIFIERS: Name and Date of confirmed by patient verbally and Name and Date of confirmed by identification band FALL SCREENING: Has the patient had 2 falls in the last year or 1 fall with injury or currently using an Ambulatory Assistive Device (Walker, Cane, Wheelchair, Crutches, etc.)? No PATIENT GENDER DATA: .female : No ALLERGIES: Reviewed and unchanged MEDICATIONS REVIEWED: Yes PATIENT RELEVANT IMPLANT DATA REVIEWED: Not Applicable CREATININE: Creatinine Date Value Ref Range Status 04/20/2023 0.37 (L) 0.58 - 0.96 mg/dL Final 01/13/2023 0.38 (L) 0.58 - 0.96 mg/dL Final 02/24/2021 0.82 0.58 - 0.96 mg/dL Final Estimated Glomerular Filtration Rate Date Value Ref Range Status 04/20/2023 116 >=60 mL/min/1.73m Final Comment: Estimated Glomerular Filtration Rate (eGFR) is calculated using the 2020 CKD-EPI creatinine equation. This equation utilizes serum creatinine, sex, and age as parameters. The creatinine assay has traceable calibration to isotope dilution-mass spectrometry. Refer to KDIGO guidelines for clinical interpretation. In patients with unstable renal function, e.g. those with acute kidney injury, the eGFR may not accurately reflect actual GFR. eGFR- Date Value Ref Range Status 02/24/2021 >60 Final P.O.C.T. RESULTS: N/A May 25, [address] PERFORMED: No IV SITE: Ambulatory: A peripheral IV was started in the Left antecubital site with a Angio cath: 22 gauge. POST EXAM PIV STATUS: Discontinued PROCEDURE TYPE: [place] INJECT: [place] BONE SPECT 3 PHASE. 19.7 mCi Tc99m HDP. No other medications given.. ADMINISTRATION TIME: 11:10 PATIENT DISCHARGED TO: Ambulatory patient, left [place] department area. A Diagnostic radioactive procedure has taken place, with no further precautions necessary other than routine body substance precautions. More information regarding radiation safety can be found using this link: [email or web address] SIGNATURE: BHARAT Aviles) PATIENT NAME: Tennille Ortiz DATE: May 25, 2023 TIME: 11:23 AM PAGER/CONTACT #: documented in this encounter [facility] 05-04-2023 Instructions Jessica Keith MD - 05/04/2023 12:59 PM EDT You should call once the SPECT results are out. documented in this encounter [facility] 05-04-2023 History of Present illness Narrative [facility] Follow Up Evaluation Date: May 04, 2023 - 12:27 PM Chief Complaint: Patient presents with: Established Patient Medication Update SUBJECTIVE: Tennille Ortiz is a 58 year old female with a pertinent past medical history of scleroderma, osteoporosis, and chronic steroid use who presents to [facility] for a follow up appointment for chronic neck pain. The plan from the last visit on 03/29/23 was: - Status post Right Greater Occipital Nerve Block. - Return to clinic as needed. - The treatment plan was discussed with the patient. Post-procedure instructions were reviewed and the patient voiced understanding. Since the last visit, the patient's pain has improved significantly she no longer has ' jolting pain to the head'. However, she is having worsening neck pain, which is exacerbated by neck flexion, and relieved by extension. Pain is described as aching, throbbing, with radiation to the right occipitoparietal region. She denies any numbing or tingling sensation iin the arms, also denies any arm weakness. Pain Location: neck Does the pain radiate? Yes, to the occiito parietal region Duration: years. Symptoms have been persistent. Pain character: aching, severe, and throbbing Current pain intensity (on a scale of 0-10/10): 7 Best pain intensity (on a scale of 0-10/10): 5 Worst pain intensity (on a scale of 0-10/10): 9 Exacerbating factors: neck flexion Alleviating factors: neck extension Sleep disturbance? Yes The patient denies unintentional weight loss and arm or leg weakness. Physical Therapy/Home Exercise: No In the past 12 months, She completed 0 physical therapy sessions. Physical therapy is n/a. Current Pain Medications and Dosages: - Opioids: none - NSAIDs: Ibuprofen 800mg PRN - Anti-Depressants: N - Anti-Convulsants: N - Others: Flexeril 10mg tid Prior treatments: medications, right occipital nerve block Prior Pain Procedures (with percentage of pain relief and duration of relief): occipital nerve block OARRS report: Reviewed: The patient's OARRS report was reviewed and is consistent with the reported medication use. Pain medications reviewed: Yes Pertinent Imaging: Cervical MRI (12/2022) Cervical soft tissues: The paraspinal soft tissues are within normal limits. Disc protrusions and facet and uncovertebral degenerative changes seen at multiple levels throughout the cervical spine. C2-C3: Canal and foramina are patent. C3-C4: Mild left foraminal narrowing. Canal and right neural foramen are patent. C4-C5: Mild canal stenosis and mild bilateral foraminal narrowing. C5-C6: Mild canal stenosis. Neural foramina are patent. C6-C7: Mild to moderate canal stenosis. Mild to moderate left and mild right foraminal narrowing. C7-T1: Canal and foramina are patent. PAST MEDICAL HISTORY Diagnosis Date Asthma DUB (dysfunctional uterine bleeding) Hypoglycemia Hypothyroidism Polymyositis ([facility]) Preop exam for internal medicine Raynaud's syndrome Raynaud's disease Restrictive lung disease Systemic sclerosis ([facility]) Vitamin D deficiency PAST SURGICAL HISTORY Procedure Laterality Date APPENDECTOMY ARTHRP ACETBLR/PROX FEM PROSTC AGRFT/ALGRFT right hip DILATION & CURETTAGE DX&/THER NONOBSTETRIC Dilation & curettage LIG/TRNSXJ FLP TUBE ABDL/VAG APPR UNI/BI Tubal ligation MIDLINE INSERTION/CONSULT 08/22/2017 PAST SURGICAL HISTORY OF GI tube PAST SURGICAL HISTORY OF right vascular reconstruction PAST SURGICAL HISTORY OF tracheostomy PAST SURGICAL HISTORY OF removal of calcium deposits from right hand PAST SURGICAL HISTORY OF 2010 Hysterectomy Ovaries Intact Social History Tobacco Use Smoking status: Never Smokeless tobacco: Never Substance Use Topics Alcohol use: Yes Comment: occasionally Drug use: No FAMILY HISTORY Problem Relation Age of Onset Heart Mother Heart Father Heart Paternal Grandfather Cervical Cancer Sister Alzheimer's Disease Maternal Grandmother Cancer Maternal Grandmother unsure other (negative [Other]) Other negative for breast, ovary or endometrial ALLERGIES Allergen Reactions Fortaz [Ceftazidime] Hives Hives, itching, peeling, Aspirin capillaries break Betadine [Povidone-* Itching Clindamycin Other: See Comments Skin peel, red rash, weight gain, swelling in the face and legs. Itchy. Doxycycline Shortness of Breath, Myalgia Erythromycin Base diarrhea Penicillins Hives Tolerated zosyn / Current Outpatient Medications Medication Sig romosozumab-aqqg (EVENITY SUBCUTANEOUS) Inject subcutaneously once every month. rOPINIRole (REQUIP) 0.5 mg tablet Take 0.5 mg by mouth three times daily. calcium carbonate (CALCIUM 600 ORAL) Take 100 Units by mouth once daily. unknown dose calcium carbonate (CALCIUM 300 ORAL) Take by mouth. unknown dosage cholecalciferol (VITAMIN D3) 400 unit tab Take by mouth. multivitamin tablet Take by mouth. cyclobenzaprine (FLEXERIL) 10 mg tablet Take 1 tablet by mouth three times daily as needed for muscle spasm or pain. Watch for drowsiness atorvastatin (LIPITOR) 40 mg tablet Take 1 tablet by mouth daily at bedtime. rOPINIRole (REQUIP) 0.25 mg tablet Take 1 tablet by mouth twice daily. albuterol (PROVENTIL) 2.5 mg /3 mL (0.083 %) nebulizer solution Use 3 mL via nebulizer every 4 hours. sodium chloride 7% solution 7 % nebu Inhale 4 mL as instructed twice daily. predniSONE (DELTASONE) 1 mg tablet Take 4 tablets by mouth once daily. NO REFILLS WITHOUT APPOINTMENT WITH DR FUENTES Ibuprofen 200 mg cap Take 800 mg by mouth three times daily. levothyroxine (SYNTHROID) 100 mcg tablet Take 1 tablet by mouth daily before breakfast. sertraline (ZOLOFT) 50 mg tablet Take 1 tablet by mouth daily at bedtime. Nebulizer and Compressor For Neb Bekah 1 Device as needed. Use as directed. sodium chloride 7% solution 7 % nebu Inhale 4 mL as instructed twice daily. Current Facility-Administered Medications Medication Dose Route Frequency romosozumab-aqqg 210 mg injection (EVENITY) 210 mg SUBCUTANEOUS q 1 MONTH Questionnaires: Patient Entered Questionnaires PROMIS Score Percentiles PROMIS Global Health Scale 12/31/2016 11/06/2022 02/17/2023 Physical Health Percentile 7 4 4 Mental Health Percentile 3 9 2 Physical Health 01/10/2023 02/17/2023 04/19/2023 Physical Function Percentile 2 1 2 Pain Interference Percentile 1 1 1 Percentiles provide an indication of how the patient's score ranks in relation to the general population. Higher percentile rankings indicate better function/quality of life. 50th percentile is the average of the general population and indicates half of respondents had a worse score. > 31st percentile is within normal limits or better * < 31st percentile is at least SD worse than population, which may be clinically relevant < 16th percentile is at least 1 SD worse than population and warrants attention Depression Screening: PHQ-9 11/06/2022 12/07/2022 02/17/2023 Score 9 11 11 PHQ-9 Self Harm 11/06/2022 12/07/2022 02/17/2023 Question 9 Not at all Not at all Not at all PHQ-9 Self-Harm (Item 9) response options: 0 Not at all 1 Several days 2 More than half the days 3 Nearly every day PHQ-9 Levels: 0-4 Minimal depression 5-9 Mild depression 10-14 Moderate depression 15-19 Moderately severe depression 20-27 Severe depression PHQ-9 Score 02/17/2023 11 12/07/2022 11 11/06/2022 9 10/09/2018 11 12/31/2016 13 03/24/2015 4 04/10/2012 0 04/19/2011 0 02/15/2011 6 (0-4) minimal depression, (5-9) mild depression, (10-14) moderate depression, (15-19) moderately severe depression, (20-27) severe depression No flowsheet data found. No flowsheet data found. REVIEW OF SYSTEMS: GENERAL: No weight loss, malaise or fevers, SEE HPI HEENT: Negative for frequent or significant headaches, No changes in hearing or vision, no nose bleeds or other nasal problems NECK: positive for pain RESPIRATORY: Negative for cough, wheezing or shortness of breath. CARDIOVASCULAR: Negative for chest pain, leg swelling or palpitations. GASTROINTESTINAL: No nausea, vomiting, or diarrhea GENITOURINARY: No history of dysuria, frequency or incontinence MUSCULOSKELETAL: positive for neck pain, NEUROLOGIC: Negative for focal numbness or weakness, headaches and dizziness or syncope. SKIN: Negative for lesions, rash, and itching. PSYCHIATRIC: Negative for sleep disturbance, mood disorder and recent psychosocial stressors. HEMATOLOGIC/LYMPHATIC/IMMUNOLOGIC : Negative for prolonged bleeding, bruising easily or swollen nodes. ENDOCRINE: Negative for cold or heat intolerance, polyuria, polydipsia and goiter. The remainder of the ROS was negative. OBJECTIVE: BP 119/63 Pulse 78 Temp (Src) 98.5 (Temporal) Ht 5' 2.5[per patient[ (1.59m) Wt 97 lb (44.0kg) SpO2 95% LMP 04/12/2010 BMI 17.45 kg/(m^2). PHYSICAL EXAMINATION: General:Wheelchair, well appearing, alert, and in no acute distress Psych: Appropriate affect Skin: skin color, texture, turgor normal, no rashes or lesions HEENT: normocephalic, atraumatic, sclera non-icteric CV: Regular rate and rhythm - pulses equal Resp: Unlabored on room air GI: Soft, non-tender, non-distended. : not examined Musculoskeletal: Neck: Tenderness over the superior cervical spinous process in the suboccipital region, and right and left upper paraspinal muscles, limited range of motion with rotation, Spurling negative on left and right Back: No pain on palpation of the lumbar spine. Full ROM without reproducible pain. Straight leg raising test negative bilaterally. Neurological: Mental Status: alert, oriented to person, place, and time Cranial Nerves: Cranial nerves are intact Reflexes: Deep tendon reflexes are 2+ all throughout. Motor Strength: Motor strength and tone are 5/5 all throughout. Sensory: Sensation was intact to light touch all throughout. Gait: The patient uses an assistive device - wheel chair. ASSESSMENT: Tennille Ortiz is a 58 year old woman with medical history notable for scleroderma, osteoporosis, chronic steroid use (Prednisone 4 mg daily) who presents to [facility] for follow up of chronic neck pain. Since the last visit, when she had a right greater occipital nerve block, she endorses significant improvement in her 'jolting pain to the head'. However, she is having worsening central neck pain, described as aching, throbbing, with radiation to the right occipitoparietal region. It is worsened by neck flexion, and relieved by extension. She denies any numbing or tingling sensation iin the arms, also denies any arm weakness. Her examination is consistent with severe tenderness over the upper cervical spinous process, and moderate cervical paraspinal tenderness. Her presentation suggests possible inflammatory etiology of her cervical pain. We will recommend SPECT of the cervical spine to rule out any inflammatory process, and identify other possible etiologies. Neck pain, chronic (primary encounter diagnosis) Arthropathy of cervical facet joint Cervicalgia Abnormal findings on diagnostic imaging of other parts of musculoskeletal system PLAN: - Cervical spine SPECT to rule out inflammation - Counseled the patient regarding the importance of activity modification and exercise. - Follow up: We will follow up once the SPECT result is out.. Please call the clinic to schedule an appointment . The above plan and management options were discussed at length with patient. Patient is in agreement with the above and verbalized understanding. It will be communicated with the referring physician via electronic record, fax, or mail. Jessica Keith MD May 04, 2023 Teaching Statement I have interviewed and examined the patient and confirm the pertinent findings. I have discussed the case with the resident/fellow and agree with the findings and plan as documented. Chris Awad MD May 04, 2023 7:41 PM documented in this encounter [facility] 04-28-2023 Nurse Note Pt here for injection of Evenity. Given sq, one injection RLQ and one inj LLQ. Pt tolerated well. Tammy Ochoa LPN documented in this encounter [facility] 04-20-2023 History of Present illness Narrative Radiology Service Progress Note PATIENT NAME: Tennille Ortiz DATE OF SERVICE: April 20, 2023 TIME: 3:37 PM PATIENT IDENTITY VERIFICATION COMPLETED USING TWO (2) IDENTIFIERS: Name and Date of confirmed by patient verbally. FALL SCREENING: Has the patient had 2 falls in the last year or 1 fall with injury or currently using an Ambulatory Assistive Device (Walker, Cane, Wheelchair, Crutches, etc.)? Yes, Patient High Risk for Falls What interventions were put in place to prevent falls during this visit? Yellow Falls Risk Wristband Applied PATIENT GENDER DATA: Female. status: : No status: NO. PATIENT RELEVANT IMPLANT DATA REVIEWED: Not Applicable RADIOLOGY DEPARTMENT: General X-ray: Exam(s) Completed: Chest X-Ray PERIPHERAL IV DATA: Not applicable SIGNED BY: RT Russell(R) April 20, 2023 3:37 PM documented in this encounter [facility] 02-28-2023 Nurse Note Patient presents with: Imm/Inj Pt is identified by name and birthdate: Yes. Allergies and medications reviewed. Latex allergy? No. Does this patient have: Unplanned weight loss or gain of greater than 10 pounds, or a change of appetite over the last year? No Does the patient have any concerns about safety in the home/falls? Not at risk for falls Has the patient fallen in the past year? No Does the patient have difficulty performing or completing routine daily living activities? No Does this patient have concerns about personal safety? No Is patient having pain? Pain: Yes, pain rated 8 on a scale of 0-10 (0=none, 10=worst). Location: neck. Character: aching, dull, sharp, sore, and stabbing. Duration: 11 years. Frequency: occurs constantly. Health Maintenance: Reviewed and updated. Does patient have MyChart access or Caregiver proxy: yes Pt/Caregiver willingness and readiness to learn assessed: Yes. Barriers: none Evenity injection administered, bilateral arms,tolerated well, no immediate adverse reactions noted. Alvina Jenkins LPN documented in this encounter [facility] 02-22-2023 History of Present illness Narrative Patient seen status post imaging reviewed. MRI does reveal healing of previously identified T6 fracture without evidence of focal kyphosis. The patient does continue to report severe suboccipital pain due to her C1 arthropathy. She is tearful as this has been extremely disturbing to her and she has not been able to sleep because of the pain. She is set up for injections soon. I discussed with the patient that this is likely to be amenable to an injection. If the injection does not help then we can discuss surgical options but these are very serious and morbid. The patient stated that she will follow-up with us after the injection. I have communicated my name and active licensure. The patient's identity and physical location were verified at the time of this visit. Either the patient or their legal customer retention representative has been informed of the risks and benefits of -- and alternatives to -- treatment through a remote evaluation and consents to proceed with the evaluation remotely. documented in this encounter [facility] 01-31-2023 Nurse Note Pt here for injection of Evenity. Given sq (2 shots) in b/l arms. Pt is observed for 30 minutes from injection for signs and symptoms of reaction. within the first few minutes of the injection, pt noted a strange taste in her mouth. Not metallic. Unable to describe. By 5 minutes the taste was gone. Pt resting with sister by her side. Pt tolerated well. Pt discharged to home with sister. Tammy Ochoa LPN documented in this encounter [facility] 01-27-2023 Miscellaneous Notes Reviewed patient on the 1st time tx report. The patient does not have a cancer dx or a chemo/radiation regimen. No further FN intervention is needed at this time. documented in this encounter [facility] 01-19-2023 Instructions Michelle Zazueta MD - 01/19/2023 11:57 AM EDT Thank you for coming in to the Pain Management Clinic, it was a pleasure to meet with you. The plan from your visit is summarized here. - Ultrasound guided right occipital nerve block documented in this encounter [facility] 01-19-2023 History of Present illness Narrative Images from the original note were not included. Chronic Pain Consult Note Date: January 19, 2023 - 11:11 AM Referring physician: Maricruz Gimenez This consult was requested by Maricruz Gimenez for my medical opinion. My final recommendations will be communicated to the referring physician by way of the shared medical record for internal providers or by letter via the [employer] for external providers. Chief Complaint: Occipital Neuralgia History of Present Illness: Tennille Ortiz is a 58 year old woman with medical history notable for scleroderma, osteoporosis, chronic steroid use (Prednisone 4 mg daily) who presents to [facility] for evaluation of occipital neuralgia. Her neck pain had started back in 2012 with a similar presentation and has bothered her on and off over the last several years. She felt like her pain was acutely worsened after falling in her bathroom in April 2022, where she fell on her back onto a box.Today, she describes the pain as 7/10 and describes it as sharp and stabbing. It starts at her R neck and travels up to the back of her R scalp. It does not radiate down her arm or shoulders. The pain comes and goes, and is triggered by turning her head to the R or L and movement of her right arm. Her pain is improved with ibuprofen and rest. She has previously followed with a pain management physician in [place] around 5 years ago and describes previously receiving injections in her neck with improvement in her symptoms. She was recently seen by Dr. Gimenez in 12/2022 who referred her to our clinic for evaluation of an occipital nerve block. She is currently not in physical therapy, she was last in physical therapy in 2020 for her knee. The patient denies unintentional weight loss, fevers, chills, or night sweats, and arm or leg weakness. Pain Medications: - Flexeril 10 mg TID PRN - Ibuprofen 200 mg TID Previous pain treatments: - She states she has had a history of occipital nerve blocks with improvement of symptoms with her previous pain management physician in [place] Physical Therapy/Home Exercise: No OARRS Report: Reviewed: The patient's OARRS report was reviewed and is consistent with the reported medication use. Past Medical History: PAST MEDICAL HISTORY Diagnosis Date Asthma DUB (dysfunctional uterine bleeding) Hypoglycemia Hypothyroidism Polymyositis ([facility]) Preop exam for internal medicine Raynaud's syndrome Raynaud's disease Restrictive lung disease Systemic sclerosis ([facility]) Vitamin D deficiency Past Surgical History: PAST SURGICAL HISTORY Procedure Laterality Date APPENDECTOMY ARTHRP ACETBLR/PROX FEM PROSTC AGRFT/ALGRFT right hip DILATION & CURETTAGE DX&/THER NONOBSTETRIC Dilation & curettage LIG/TRNSXJ FLP TUBE ABDL/VAG APPR UNI/BI Tubal ligation MIDLINE INSERTION/CONSULT 08/22/2017 PAST SURGICAL HISTORY OF GI tube PAST SURGICAL HISTORY OF right vascular reconstruction PAST SURGICAL HISTORY OF tracheostomy PAST SURGICAL HISTORY OF removal of calcium deposits from right hand PAST SURGICAL HISTORY OF 2010 Hysterectomy Ovaries Intact Family History: FAMILY HISTORY Problem Relation Age of Onset Heart Mother Heart Father Heart Paternal Grandfather Cervical Cancer Sister Alzheimer's Disease Maternal Grandmother Cancer Maternal Grandmother unsure other (negative [Other]) Other negative for breast, ovary or endometrial Social History: Alcohol Use: Yes (occasionally) Tobacco Use: Never Drug Use: No Psychiatric History: None Allergies: ALLERGIES Allergen Reactions Fortaz [Ceftazidime] Hives Hives, itching, peeling, Aspirin capillaries break Betadine [Povidone-* Itching Clindamycin Other: See Comments Skin peel, red rash, weight gain, swelling in the face and legs. Itchy. Doxycycline Shortness of Breath, Myalgia Erythromycin Base diarrhea Penicillins Hives Tolerated zosyn 02/09 Current Outpatient Medications: Current Outpatient Medications Medication Sig calcium carbonate (CALCIUM 300 ORAL) Take by mouth. unknown dosage cholecalciferol (VITAMIN D3) 400 unit tab Take by mouth. multivitamin tablet Take by mouth. cyclobenzaprine (FLEXERIL) 10 mg tablet Take 1 tablet by mouth three times daily as needed for muscle spasm or pain. Watch for drowsiness atorvastatin (LIPITOR) 40 mg tablet Take 1 tablet by mouth daily at bedtime. rOPINIRole (REQUIP) 0.25 mg tablet Take 1 tablet by mouth twice daily. albuterol (PROVENTIL) 2.5 mg /3 mL (0.083 %) nebulizer solution Use 3 mL via nebulizer every 4 hours. sodium chloride 7% solution 7 % nebu Inhale 4 mL as instructed twice daily. predniSONE (DELTASONE) 1 mg tablet Take 4 tablets by mouth once daily. NO REFILLS WITHOUT APPOINTMENT WITH DR FUENTES Ibuprofen 200 mg cap Take 800 mg by mouth three times daily. levothyroxine (SYNTHROID) 100 mcg tablet Take 1 tablet by mouth daily before breakfast. sertraline (ZOLOFT) 50 mg tablet Take 1 tablet by mouth daily at bedtime. gabapentin (NEURONTIN) 100 mg capsule Take 2 capsules by mouth three times daily for 30 days. (Patient not taking: Reported on 01/13/2023) sodium chloride 7% solution 7 % nebu Inhale 4 mL as instructed twice daily. Nebulizer and Compressor For Neb Bekah 1 Device as needed. Use as directed. Current Facility-Administered Medications Medication Dose Route Frequency romosozumab-aqqg 210 mg injection (EVENITY) 210 mg SUBCUTANEOUS q 1 MONTH Review of Systems: 12 point review of systems was conducted and is negative except as noted in the HPI. Physical Examination: BP 110/57 Pulse 70 Temp (Src) 96.5 (Temporal Artery) Resp 16 Ht 5' 2 (1.58m) Wt 100 lb (45.4kg) SpO2 91% LMP 04/12/2010 BMI 18.29 kg/(m^2). General: Alert, no apparent distress. Mental status: Cooperative. Thought process coherent. Normal speech. HEENT: Normocephalic, atraumatic. Extraocular movements intact. Respiratory: Non-labored on room air. Extremities: warm and well-perfused. No notable peripheral edema. Vascular: no stasis hyperpigmentation or ulcers. Skin: No rashes, bruising or lesions noted. Musculoskeletal: - Peripheral joint range of motion is full without instability or laxity - No atrophy or tone abnormalities are noted Neck: - She has tenderness to palpation over the cervical spinous processes and right and left paraspinal muscles - There is pain elicited with neck flexion, extension, lateral flexion, and rotation, with a limited range of motion - Spurling negative on left and right Back: - No tenderness to palpation over the thoracic or lumbar spinous processes or paraspinal muscles - No pain elicited with back extension, flexion, lateral flexion, or rotation - Unrestricted arc of motion Neuro: - CN: Cranial nerves grossly intact - Motor: Upper and lower extremity strength normal and symmetric - Sensation: Intact sensation throughout - Reflexes: Deep tendon reflexes physiologic and symmetric - Cerebellar: Finger to nose test normal without tremor. - Gait: non-antalgic. Recent Imaging: MRI Cervical Spine 12/09/2022 Counting reference: Craniocervical junction. Anatomic Variants: None. Localizer images: No additional significant findings. Alignment: Alignment is anatomic. Craniocervical junction: Craniocervical junction is normal. Cord: The visualized cord is within normal limits of signal intensity and morphology. Bone marrow signal/fracture: No evidence of pathologic marrow infiltration. No evidence of prior fracture. Cervical soft tissues: The paraspinal soft tissues are within normal limits. Disc protrusions and facet and uncovertebral degenerative changes seen at multiple levels throughout the cervical spine. C2-C3: Canal and foramina are patent. C3-C4: Mild left foraminal narrowing. Canal and right neural foramen are patent. C4-C5: Mild canal stenosis and mild bilateral foraminal narrowing. C5-C6: Mild canal stenosis. Neural foramina are patent. C6-C7: Mild to moderate canal stenosis. Mild to moderate left and mild right foraminal narrowing. C7-T1: Canal and foramina are patent. CT C-spine in 09/2022 from outside hospital (read unavailable) CT scan of the cervical spine shows mild cranial settling with mild atlantoaxial instability. There is significant deterioration of the C1-C2 facet joint on the right-hand side with foraminal narrowing. Assessment: Tennille Ortiz is a 58 year old woman with medical history notable for scleroderma, osteoporosis, chronic steroid use (Prednisone 4 mg daily) who presents to [facility] for evaluation of occipital neuralgia. Her neck pain started in 2012, but most recently was aggravated in April 2022 after a fall in her bathroom. Since the fall, she has had 7/10, sharp and stabbing pain on the right side of her neck with radiation up her right scalp. Her pain is worse with turning her head and moving her right arm. Her pain is improved with Ibuprofen and resting. Her physical exam demonstrates tenderness to palpation of her cervical paraspinal muscles, right sub-occipital region, limited range of motion of her neck and negative Spurling's test. Her MRI and CT within the last year demonstrate deterioration of the C1-C2 facet joint on the right side with foraminal narrowing. Based on her presentation, physical exam and imaging, her pain is most consistent with neuropathic vs. nociceptive pain secondary to occipital neuralgia or facet arthropathy. We will perform an occipital nerve block on the right side under ultrasound guidance. If the procedure does not improve her symptoms, we discussed the possibility of a C1-C2 facet injection. We discussed the importance of exercise and activity modification. (M54.81) Occipital neuralgia of right side (primary encounter diagnosis) (M47.812) Arthropathy of cervical facet joint Plan: - Schedule for next available right occipital nerve block under ultrasound guidance. - Counseled the patient regarding the importance of activity modification and exercise. - Follow up: Return to clinic for the above procedure. Michelle Zazueta MD Pain Medicine Fellow January 19, 2023 Teaching Statement I have interviewed and examined the patient and confirm the pertinent findings. I have discussed the case with the resident/fellow and agree with the findings and plan as documented.. Chris Awad MD January 19, 2023 2:21 PM documented in this encounter [facility] 01-13-2023 History of Present illness Narrative Images from the original note were not included. Osteoporosis and Metabolic Bone Disease CONSULTATION Referring Provider: Date of Service: 01/13/2023 Name: Tennille Ortiz : 1965 Age: [age] year old Gender: female Ethnicity: White Chief Complaint: Osteoporosis, Scleroderma (Since 1988), and Myositis (Since 1988) Last Rheumatology visit: 01/13/2023 (with Donnie Snow) Tennille Ortiz is a 58 year old female who presents on 01/13/2023 for in-person visit for osteoporosis evaluation. HISTORY OF PRESENT ILLNESS Past medical history of scleroderma/myositis overlap (presence of ILD, sclerodactyly, acroosteolysis, calcinosis) and osteoporosis (only once Reclast in 2016 then lost to follow up) and chronic prednisone 4 mg. Presents as a new patient to Dr. Snow but patient has previously followed with Dr. Fuentes until 2019 and lost to follow-up. Most recent bone density scan in November 2022 showing lowest T score -4.1 in L femoral neck. She has been having steady decline in BMD in 2014 and 2016 and 2022 DXA scans. She had one-time zoledronic acid ordered by Dr. Fuentes in 2017 however patient lost to follow-up since then. She had a one-time fragility fracture in 2021 has compression fracture of her T6-T7 vertebrae. Her scleroderma and myositis has not been followed by any occup therapist since the last follow-up with Dr. Fuentes and she has been taking prednisone 4 mg as maintenance therapy at least 10 years. Recap of her scleroderma and myositis history: Scleroderma without truncal involvement, presence of ILD and severe restrictive lung disease (moderately reduced DLCO and reduced TLC). Also calcinosis, sclerodactyly, severe contractures in her fingers limiting her life with fine motor movements. Lost to follow-up with Dr. Jose. Myositis diagnosis in 1988; last flare 1998. Treated with prednisone and methotrexate. Osteoporosis History Patient has a history of fracture(s) (Comment: T6 and T7) Vertebral Fracture Date: 04/2022 Age: 57 (Comment: R knee after mechanical fall slipping on ice, non fragility) L Shoulder and R knee fracture, nonfragility Most Recent BMD Date: 11/08/22 LS: 0.859 g/cm2 Hip - Left: 0.471 g/cm2 LS T-Score: -2.7 LS Z-Score: -1.6 decrease L Hip T-Score: -4.1 L Hip Z-Score: -2.9 decrease Unavailable Daily Calcium diet: 450 mg Daily Calcium supplementation: (Comment: doesn't recall dose, however does not take consistently) Daily Vitamin D: 1000 IU Current Multivitamin: Yes Dental: Broken teeth, cannot open her mouth No extraction planned. RISK FACTORS Osteoporosis FRAX Risk Factors Fracture(s) (Comment: T6 and T7) Vertebral Fracture Date: 04/2022 Age: 57 (Comment: R knee after mechanical fall slipping on ice, non fragility) L Shoulder and R knee fracture, nonfragility No family history of osteoporosis No parent with a hip fracture Not a current smoker Glucocorticoid use (Comment: 4 mg, since age of 24; at least 10 years she is taking 4 mg) Current use No rheumatoid arthritis Secondary osteoporosis No hyperthyroidism Chronic malnutrition No alcohol use more than 3 units per day Osteoporosis Medication Risk Factors No use of Anti-convulsants No use of Aromatase inhibitors No use of Furosemide No use of Proton pump inhibitor No use of Thyroid hormone with oversuppression No use of FPC heparin use Other high risk medication for bone loss Overall med risk factors - additional details: chronic steroids Osteoporosis Disease-Specific Risk Factors Weight < 127 lbs Height loss 1 inch 10 years Fall history Fall Date Description / Comment April 2022 from standing height Eating Disorder (Comment: cannot open her mouth due to SSc) No hyperparathyroidism No history of hypercalciuria Renal calculi (Comment: many years ago) No CKD Caffeine intake: 1-3 c/day Exercise routine: no regular exercise program WOMEN / ESTROGEN Age of Menarche: 11 years Menopause status: post-menopausal Type of Menopause: surgical Age of Menopause: 45 years Previous estrogen use: none Hysterectomy: Yes Hysterectomy age: 45 years Ovaries: intact Breast cancer: No Family history of breast cancer: No OB History 3 Para 2 Term 2 0 AB 1 Living 2 SAB 1 IAB 0 Ectopic 0 Multiple 0 Live Births TREATMENT HISTORY Osteoporosis - Antiresorptive Treatments Treatment Start Date Stop Date Stop Reason Comment Zoledronic acid 2016 2017 pt choice 1 year only Prednisone Treatments Treatment Start Date Stop Date Stop Reason Comment Prednisone 4 mg 1989 at least for the past 10-20 years taking 4 mg, before that higher, but always took steroids Answers submitted by the patient for this visit: Review of Systems Rheumatology (Submitted on 01/10/2023) Fever : No Recent Unintentional Weight Change: No Eye Pain: No Eye Redness: No Vision Disturbance: No Eye Dryness: Yes Nose Bleeds: No Sores in your Mouth: No Trouble Swallowing: Yes Dry Mouth: Yes Chest Pain: No Leg Swelling: No A Cough: No Shortness of Breath: Yes Pain with Breathing: No Heartburn: No Abdominal Pain: No Diarrhea: No Black Tarry Stools: No Blood in Urine: No Pain or Burning with Urination: No Joint Pain or Stiffness: Yes Muscle Weakness: Yes Muscle Aches: Yes Joint Swelling: No Morning Stiffness in Joints: Yes A Rash: No Skin Color Changes: No Hair Loss: Yes Nail Changes: No Headaches: Yes Numbness: No Memory Loss: No Swollen Glands: No Comprehensive review of systems completed and negative except as indicated above. ACTIVE PROBLEM LIST Systemic sclerosis; CREST Degenerative Skin Disorder Unspecified Hypothyroidism Unspecified Disorder of Menstruation and Other Abnormal Bleeding From Female Genital Tract Dub (Dysfunctional Uterine Bleeding) Preop Exam for Internal Medicine Hypothyroidism Polymyositis (HCC) Raynaud's Syndrome Restrictive lung disease, Acute Productive Cough Urine, Incontinence, Stress Female Uterovaginal Prolapse Sleep Apnea Muscular Deconditioning Summary Adnexal Mass Restless Leg Syndrome Palpitations Healthcare Maintenance Ischemia of Digits of Hand Depression Exacerbation of Asthma Abnormal Sputum Age-Related Osteoporosis Without Current Pathological Fracture Current Chronic Use of Systemic Steroids Fracture of Vertebra Due to Osteoporosis (Hcc) MEDICATIONS Present Osteoporosis Medications: Current Anabolic Medications Bone Formation Agents - Sclerostin Inhibitor, Monoclonal Antibody Start End romosozumab-aqqg 210 mg injection (EVENITY) 01/18/2023 01/13/2024 210 mg, SUBCUTANEOUS, EVERY 1 MONTH, Allow to sit for 30 minutes to reach room temperature before injection. Total dose is 2 syringes (210 mg total) injection into abdomen, thigh, or upper arm. Current Calcium, Multivitamin, and Vitamin D Use on File Vitamins - D Derivatives Start End cholecalciferol (VITAMIN D3) 400 unit tab Sig - Route: Take by mouth. - ORAL Class: Historical Med Multivitamins Start End multivitamin tablet Sig - Route: Take by mouth. - ORAL Class: Historical Med Current Outpatient Medications Medication Sig cholecalciferol (VITAMIN D3) 400 unit tab Take by mouth. multivitamin tablet Take by mouth. cyclobenzaprine (FLEXERIL) 10 mg tablet Take 1 tablet by mouth three times daily as needed for muscle spasm or pain. Watch for drowsiness atorvastatin (LIPITOR) 40 mg tablet Take 1 tablet by mouth daily at bedtime. rOPINIRole (REQUIP) 0.25 mg tablet Take 1 tablet by mouth twice daily. albuterol (PROVENTIL) 2.5 mg /3 mL (0.083 %) nebulizer solution Use 3 mL via nebulizer every 4 hours. sodium chloride 7% solution 7 % nebu Inhale 4 mL as instructed twice daily. sodium chloride 7% solution 7 % nebu Inhale 4 mL as instructed twice daily. predniSONE (DELTASONE) 1 mg tablet Take 4 tablets by mouth once daily. NO REFILLS WITHOUT APPOINTMENT WITH DR FUENTES Ibuprofen 200 mg cap Take 800 mg by mouth three times daily. levothyroxine (SYNTHROID) 100 mcg tablet Take 1 tablet by mouth daily before breakfast. sertraline (ZOLOFT) 50 mg tablet Take 1 tablet by mouth daily at bedtime. Nebulizer and Compressor For Neb Bekah 1 Device as needed. Use as directed. gabapentin (NEURONTIN) 100 mg capsule Take 2 capsules by mouth three times daily for 30 days. (Patient not taking: Reported on 01/13/2023) Current Facility-Administered Medications Medication Dose Route Frequency romosozumab-aqqg 210 mg injection (EVENITY) 210 mg SUBCUTANEOUS q 1 MONTH PAST MEDICAL HISTORY Diagnosis Date Asthma DUB (dysfunctional uterine bleeding) Hypoglycemia Hypothyroidism Polymyositis (HCC) Preop exam for internal medicine Raynaud's syndrome Raynaud's disease Restrictive lung disease Systemic sclerosis (HCC) Vitamin D deficiency PAST SURGICAL HISTORY Procedure Laterality Date APPENDECTOMY ARTHRP ACETBLR/PROX FEM PROSTC AGRFT/ALGRFT right hip DILATION & CURETTAGE DX&/THER NONOBSTETRIC Dilation & curettage LIG/TRNSXJ FLP TUBE ABDL/VAG APPR UNI/BI Tubal ligation MIDLINE INSERTION/CONSULT 08/22/2017 PAST SURGICAL HISTORY OF GI tube PAST SURGICAL HISTORY OF right vascular reconstruction PAST SURGICAL HISTORY OF tracheostomy PAST SURGICAL HISTORY OF removal of calcium deposits from right hand PAST SURGICAL HISTORY OF 2010 Hysterectomy Ovaries Intact PAIN EVALUATION 01/10/2023201001/13/2023 1251 Pain Level: 8 8 Pain Location: Neck -- Description: Pressure;Radiating;Sharp;Shooting ;Stabbing;Stiffness;Throbbing -- Duration Units: Months Unknown Frequency: Continuous Continuous Intervention/Comfort measure: Medication;Reposition;Relaxation; Massage;Positioning -- Comments: Pain is neck and up into head. I have been working with spine Neurologist for pain. -- ALLERGIES Allergen Reactions Fortaz [Ceftazidime] Hives Hives, itching, peeling, Aspirin capillaries break Betadine [Povidone-* Itching Clindamycin Other: See Comments Skin peel, red rash, weight gain, swelling in the face and legs. Itchy. Doxycycline Shortness of Breath, Myalgia Erythromycin Base diarrhea Penicillins Hives Tolerated zosyn 02/09 FAMILY HISTORY Problem Relation Age of Onset Heart Mother Heart Father Heart Paternal Grandfather Cervical Cancer Sister Alzheimer's Disease Maternal Grandmother Cancer Maternal Grandmother unsure other (negative [Other]) Other negative for breast, ovary or endometrial Social History Tobacco Use Smoking status: Never Smokeless tobacco: Never Substance Use Topics Alcohol use: Yes Comment: occasionally Drug use: No I have confirmed and edited as necessary, the PFSH and ROS obtained by others. Yes OBJECTIVE DATA: PHYSICAL EXAMINATION BP 114/57 Pulse 80 Temp 36.6 C (97.8 F) (Temporal) Ht 158.8 cm (5' 2.52) Wt 46.3 kg (102 lb) LMP 04/12/2010 BMI 18.35 kg/m GENERAL: Alert and oriented. No acute distress. SKIN: Mauskopf facies. Contracted skin over her fingers. Skin color, texture, turgor normal. No calcinosis seen today. No rashes or lesions. EYES: ADAM, conjunctiva and sclera normal. EARS: External ears normal. THROAT: Normal and no erythema. DENTAL: Abnormal: poor hygiene, cracked tooth HEART: RRR LUNGS: Bilateral fine crackles. ABDOMEN: Bowel sounds normoactive, no bruits; soft, nontender, without palpable masses. NEURO: Awake, alert and oriented x 3, cranial nerves II-XII grossly intact, normal gait and no involuntary motions. JOINT EXAM -Neck painful ROM with flexion -Shoulders, elbows, wrists, hands, fingers: Positive deformity with severe contractures of bilateral hands and fingers, significant ROM limitation -Tenderness at the thoracic spine midline where she has fracture -Tenderness of left shoulder palpation -Knees, ankles, feet, toes: + contractures of lower extremity. No erythema, warmth, swelling, effusion, tenderness, ROM limitation. ? Back Pain: yes Location: thoracic: radicular: No RELEVANT PREVIOUS INVESTIGATIONS Calcium Latest Ref Rng & Units 02/22/2021 02/23/2021 02/24/2021 01/13/2023 CA 8.5 - 10.2 mg/dL 9.5 9.6 10.0 9.9 Alkaline Phosphatase Latest Ref Rng & Units 02/23/2021 02/24/2021 01/13/2023 01/13/2023 ALKPHOS 34 - 123 U/L 166(H) 177(H) 72 72 ALKALINE PHOSPHATASE 34 - 123 U/L 166(H) 177(H) 72 72 TSH Latest Ref Rng & Units 12/03/2014 08/23/2017 02/08/2021 02/08/2021 TSH 0.270 - 4.200 uU/mL 12.800(H) 8.290(H) 2.060 3.760 Vitamin D Latest Ref Rng & Units 03/08/2017 07/29/2017 10/09/2018 01/13/2023 VITAMIN D 25 HYDROXY 31.0 - 80.0 ng/mL 22.3(L) 61.7 41.9 31.8 Creatinine Latest Ref Rng & Units 02/22/2021 02/23/2021 02/24/2021 01/13/2023 CREAT 0.58 - 0.96 mg/dL 0.62 0.57(L) 0.82 0.38(L) NTX 14.4 - 75.0 nM/mM Creat - - - - Protein, Total Latest Ref Rng & Units 02/22/2021 02/23/2021 02/24/2021 01/13/2023 PTH 15 - 65 pg/mL - - - 29 TPROT 6.3 - 8.0 g/dL 6.7 6.8 7.2 6.9 Albumin Latest Ref Rng & Units 02/22/2021 02/23/2021 02/24/2021 01/13/2023 ALB 3.9 - 4.9 g/dL 3.4(L) 3.4(L) 3.5(L) 4.1 PTH Latest Ref Rng & Units 03/22/2008 01/13/2023 PTH, INTACT 15 - 65 pg/mL 19 29 Hepatitis Screen Latest Ref Rng & Units 03/07/2013 03/08/2013 02/08/2021 02/09/2021 HEPAIGM Negative - Negative Negative - HEPBCIGM Negative - Negative Negative - HEPBCOTOL NEGAT Negative - - - HEPSABQ NEGAT Negative - - - HEPEM Negative - - - Negative HEPCABEIA NEGAT Negative - - - HBSAGR Negative Negative Negative Negative - BONE DENSITY RESULTS Last Bone Density DXA-AXIAL SKELETON Exam End: 11/08/2022 2:10 PM (Final result) Narrative: * * *Final Report* * * DATE OF EXAM: Nov 08 2022 2:10PM [place] [id number] - DXA - AXIAL SKELETON -NB / PROCEDURE REASON: Osteoporosis without current pathological fracture, unspecified osteoporosis typ * * * * Physician Interpretation * * * * EXAMINATION: DXA BONE DENSITOMETRY BD DXA - AXIAL SKELETON -NB CLINICAL HISTORY: DIAGNOSTIC Osteoporosis without current pathological fracture, unspecified osteoporosis type . DXA Model: A50 [employer] (S/N: [id number]) SITE SCANNED: Lumbar spine, left hip Date Scanned: 11/08/2022 2:10 PM RESULT: Lumbar spine (L1-L4): 0.859 g/cm2, T-score -2.7, Z-score -1.6 Lumbar spine: 2017: 0.975 g/cm2 Lumbar spine: 2014: 1.095 g/cm2 Lumbar spine change: -0.116 g/cm2, -11.9 %, significant decrease Left Femoral Neck: 0.471 g/cm2, T-score -4.1, Z-score -2.9 Left Femoral Neck: 2017: 0.550 g/cm2 Left Femoral Neck: 2014: 0.623 g/cm2 Left Femoral Neck Change: -0.079 g/cm2, -14.4 %, significant decrease Left Total Hip: 0.514 g/cm2, T-score -3.9, Z-score -3.1 Left Total Hip: 2017: 0.649 g/cm2 Left Total Hip: 2014: 0.713 g/cm2 Left Total Hip change: -0.135 g/cm2, -20.8 %, significant decrease Impression: IMPRESSION: THE LOWEST T-SCORE IS -4.1 IN THE LEFT HIP DIAGNOSIS: Osteoporosis Spine: Decreased bone mass in spine. Hip: Decreased bone mass in hip. FRACTURE RISK: very high risk RISK FACTORS: This patient is a 57 years Female. MENSTRUAL STATUS: She reports menstrual status of post-menopausal, menopause at age The patient reports the following risk factors associated with low bone mass or increased fracture risk: - previous fracture: left knee - low body weight <127 pounds - current steroid therapy The patient reports the following: - vitamin D intake - no calcium supplement, possible low calcium intake RECOMMENDATIONS: [facility] GUIDELINES: Postmenopausal women and men age 50 and older presenting with the following should be treated: -T-score < -2.5 at the femoral neck or spine after appropriate evaluation to exclude secondary causes Based on the patient age, bone density and risk factors: - the patient has had a significant decline in bone mass, careful follow up is recommended. Secondary causes for bone loss should be considered with appropriate lab testing. - pending workup, treatment would be indicated, but clinical correlation is required. - treatment with an anabolic agent, Forteo, Tymlos or Evenity should be considered. - the patient should take calcium, the recommended dose is 5914-1078 mg per day along with 800-1000 IU vitamin D (some patients may require higher doses of vitamin D). LIMITATIONS: - Steroid therapy may increase fracture risk independent of bone mass. FOLLOW-UP: Recommended in 1 year if on steroids cc. Vandana Stevens PA-C Director Of Marketing Operations: HAYLEE Flynn Date/Time: Nov 08 2022 2:50P Dictated by : REY FUENTES MD This examination was interpreted and the report reviewed and electronically signed by: REY FUENTES MD on Nov 08 2022 5:04PM EST IMAGING Last XR Thoracic Spine - Impression Only XR THORACIC GENERAL 3V AP/LAT/SWIMMERS Exam End: 12/10/2022 11:31 AM (Final result) Impression: IMPRESSION: Unchanged T6 compression fracture. Mild degenerative changes. ... Last MRI Thoracic Spine - Impression Only MRI THORACIC SPINE WO IVCON Exam End: 01/10/2023 2:49 PM (Final result) Impression: IMPRESSION: Chronic benign 70% compression fracture of the T6 vertebra with mild dorsal displacement of the posterior-superior superior wall. Less than 30% benign compression fracture due to superior endplate Schmorl's node T4. No evidence of an acute compression fracture. No marrow signal abnormality.... CT chest 02/04/2015 Lower lobe predominance traction bronchiectasis, peribronchial and subpleural cystic changes greater in the left lower lobe with apparent honeycombing probably related to UIP. XR hand 12/03/2014 FINDINGS CONSISTENT WITH SCLERODERMA. AMPUTATION THROUGH RIGHT SECOND PIP JOINT. XR knee 12/03/2014 IMPRESSION: DISTAL FEMORAL AVASCULAR NECROSIS BILATERALLY. PATIENT-ENTERED DATA: PROMIS Assessments PROMIS Assessments 11/06/2022 12/07/2022 01/10/2023 Physical Health Percentile 4 % - - Mental Health Percentile 9 % - - Pain Score 2 - - Pain Interference Percentile 1 % 1 % 1 % Fatigue Percentile 7 % 10 % 16 % Physical Function Percentile 3 % 2 % 2 % PHQ-9 0 - 4: Minimal Depression 5 - 9: Mild Depression 10 - 14: Moderate Depression 15 - 19: Moderately Severe Depression 20 - 27: Severe Depression PHQ-9 10/09/2018 11/06/2022 12/07/2022 PHQ-2 Score 3 4 4 PHQ-9 Score 11 9 11 RAPID 3 [place]ris Activities of Daily Living 01/10/2023 8:20 PM Dress self? With MUCH difficulty Get in and out of bed? With SOME difficulty Walk outdoors? With SOME difficulty Wash and dry body? With MUCH difficulty Get in and out of car? 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 Risk factors: age, post-menopausal status, myositis and scleroderma overlap, long-term prednisone use, hysterectomy at age 45 Fracture history: vertebral fracture, R tibial plateau fracture and L shoulder. Her calcium intake is low, 450 mg with diet and no regular Ca/Vit D supplement prior. Her vitamin D level was normal when last checked. Current osteoporosis treatment: None Past osteoporosis treatment: Reclast one infusion 2017 PLAN: Osteoporosis -We discussed the natural progression of osteoporosis and the importance of treating osteoporosis to prevent risk of fractures given the increased morbidity and mortality associated with fragility fractures. -We discussed treatment options, including risks and benefits, to include oral alendronate, annual infusions of zoledronic acid, twice yearly injections of denosumab, daily injections of teriparatide/abaloparatide (Forteo/Tymlos), monthly injections of romosozumab (Evenity). -She would benefit from an anabolic agent given very low BMD and vertebral fracture. She is not in favor of daily injections (would be very challenging given contractures in her hands). We discussed the use of Evenity and specifically the risks, benefits and alternatives to treatment, including the black box warning. She has not had an MA or stroke within the past year. I provided her with written information regarding the potential side effects. -Recommend obtaining additional labs as ordered below. -I recommend vitamin D at a dose of 800 -1,000 international unit(s) QD if vitamin D is in the normal range; this will be adjusted if vitamin D is low -Additionally recommend calcium at a dose of 2885-5696 mg QD in divided doses. If not obtained through the diet, recommend adding a calcium supplement as needed. -I have provided the patient with information regarding dietary sources of calcium. -Other measures to prevent and treat osteoporosis and its complications are also recommended and have been discussed during this visit. Those include practicing aerobic exercise, limiting the intake of alcohol, and preventing falls (e.g., doing exercises to maintain balance, wearing sensible shoes, keeping good lightening in the house, removing home hazards, and using assistive devices if necessary). -Recommend follow up DXA in 2 years to assess bone density on the same machine -Encourage weight bearing exercises as she is able -Continued f/u with PCP for routine health maintenance advised -Will follow up regarding next steps once results return. Systemic sclerosis with myositis overlap -Scleroderma and myositis seems to be stable over the past years however she has not been following up with any providers. -This has to be further discussed at a separate visit to establish care but currently no acute therapy is needed. 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 Snow. Gabriela Holland MD PGY-4 Rheumatology Fellow Rheumatology Attending Staff Note: I reviewed the history and physical obtained and documented by the resident/fellow and I personally participated in the burris components of the history and exam. The following comments revise or confirm relevant burris elements of the resident/fellow's note: History: as given Physical Exam: as above I discussed the case and the plans with the resident/fellow and I agree with the above history, exam, assessment and plan. The above note has been edited to reflect my recommendations. I spent a total of 60 minutes on the date of the service which included preparing to see the patient, [id number] patient care, completing clinical documentation, obtaining and/or reviewing separately obtained history, performing a medically appropriate examination, counseling and educating the patient/family/caregiver, and ordering medications, tests, or procedures. Donnie Snow MD Rheumatology Staff Office Visit on 01/13/23 VITAMIN D 25 HYDROXY PTH INTACT BLD COMP METABOLIC PANEL C TELOPEPTIDE, BETA ALK PHOS ISOENZYM BL PROCOLLAGEN TYPE 1 cc: PCP: Evaristo Du [address] [place] [address] documented in this encounter [facility] 01-10-2023 Note HNO ID: [id number] Author: Laura Barron RT(R) Service: Radiology Author Type: Casting Supervisor Type: Progress Notes Filed: 01/10/2023 2:36 PM Note Text: Radiology Service Progress Note PATIENT NAME: Tennille Ortiz DATE OF SERVICE: January 10, 2023 TIME: 2:36 PM PATIENT IDENTITY VERIFICATION COMPLETED USING TWO (2) IDENTIFIERS: Name and Date of confirmed by patient verbally. FALL SCREENING: Has the patient had 2 falls in the last year or 1 fall with injury or currently using an Ambulatory Assistive Device (Walker, Cane, Wheelchair, Crutches, etc.)? No PATIENT GENDER DATA: Female. status: : No status: NO. PATIENT RELEVANT IMPLANT DATA REVIEWED: Yes RADIOLOGY DEPARTMENT: MR; Exam(s) Completed: Spine: Thoracic spine PERIPHERAL IV DATA: Not applicable SIGNED BY: RT Cheo(R) January 10, 2023 2:36 PM [facility] 01-10-2023 History of Present illness Narrative Radiology Service Progress Note PATIENT NAME: Tennille Ortiz DATE OF SERVICE: January 10, 2023 TIME: 2:36 PM PATIENT IDENTITY VERIFICATION COMPLETED USING TWO (2) IDENTIFIERS: Name and Date of confirmed by patient verbally. FALL SCREENING: Has the patient had 2 falls in the last year or 1 fall with injury or currently using an Ambulatory Assistive Device (Walker, Cane, Wheelchair, Crutches, etc.)? No PATIENT GENDER DATA: Female. status: : No status: NO. PATIENT RELEVANT IMPLANT DATA REVIEWED: Yes RADIOLOGY DEPARTMENT: MR; Exam(s) Completed: Spine: Thoracic spine PERIPHERAL IV DATA: Not applicable SIGNED BY: RT Cheo(R) January 10, 2023 2:36 PM documented in this encounter [facility] 12-09-2022 History of Present illness Narrative Radiology Service Progress Note PATIENT NAME: Tennille Ortiz DATE OF SERVICE: December 09, 2022 TIME: 12:50 PM PATIENT IDENTITY VERIFICATION COMPLETED USING TWO (2) IDENTIFIERS: Name and Date of confirmed by patient verbally. FALL SCREENING: Has the patient had 2 falls in the last year or 1 fall with injury or currently using an Ambulatory Assistive Device (Walker, Cane, Wheelchair, Crutches, etc.)? No PATIENT GENDER DATA: Female. status: : No status: NO. PATIENT RELEVANT IMPLANT DATA REVIEWED: Yes RADIOLOGY DEPARTMENT: MR; Exam(s) Completed: Spine: Cervical spine PERIPHERAL IV DATA: Not applicable SIGNED BY: RT Andrew(R) December 09, 2022 12:50 PM documented in this encounter [facility] 11-08-2022 History of Present illness Narrative Patient has been identified by name and date of . Scanner - [id number] Sites Scanned: Lumbar spine and Left hip Melissa Peng Radiology Service Progress Note PATIENT NAME: Tennille Ortiz DATE OF SERVICE: November 08, 2022 TIME: 1:53 PM PATIENT IDENTITY VERIFICATION COMPLETED USING TWO (2) IDENTIFIERS: Name and Date of confirmed by patient verbally. FALL SCREENING: Has the patient had 2 falls in the last year or 1 fall with injury or currently using an Ambulatory Assistive Device (Walker, Cane, Wheelchair, Crutches, etc.)? No PATIENT GENDER DATA: Female. status: : No status: NO. PATIENT RELEVANT IMPLANT DATA REVIEWED: Not Applicable RADIOLOGY DEPARTMENT: Bone Density PERIPHERAL IV DATA: Not applicable SIGNED BY: Melissa Peng November 08, 2022 1:53 PM documented in this encounter [facility] 11-08-2022 Instructions Vandana Stevens PA-C - 11/08/2022 12:28 PM EDT BONE MINERAL DENSITY PATIENT INSTRUCTIONS ======== Bone mineral density testing measures the amount of calcium in certain parts of your bones. This information determines how strong your bones are. The test is used to detect osteoporosis, a disease in which the bone's mineral content and density are low, increasing a person's risk of fractures. The lumbar spine (lower back) and the hip are the skeletal sites usually examined. For the test, remember that: 1. You cannot take this test if you are . 2. Eat a normal diet on the day of the test. 3. Take your medications as you normally would. 4. DO NOT take calcium supplements (such as Tums) for 24 hours before the test. 5. On the day of the test, leave valuables (jewelry or credit cards) at home. 6. The test should be performed prior to oral, rectal or IV contrast studies, or at least 7 days after any of these studies. For the test, you may be asked to wear a hospital gown. You will lie on your back, on a padded table, in a comfortable position. Generally, you can resume your usual activities immediately. documented in this encounter [facility] 11-08-2022 History of Present illness Narrative Images from the original note were not included. Spine Care Path Neck Pain - Chronic (> 12 weeks) Initial Exam SUBJECTIVE HISTORY OF PRESENT ILLNESS: Tennille Ortiz is a 57 year old female who presents with a chief complaint of neck pain and is self-referred. PMH including osteoporosis, systemic sclerosis, polymyositis. H/o Reclast 03/2017. Here with daughter. -09/19/22 ED for neck and head pain. Completed in ED: CT cervical, CT neck/head angio, CBC, BMP. History of fall 04/16/23. She was seen at ED and found to have an acute T6 vertebral body fracture. In May she started to experience electrical shocks from right side of the neck to the head that took her breath away. Became gradually worse and more frequent over time. Then became severe and constant in September. Any movement would cause a pain and shocks - getting out of the chair, walking, reaching. These shocks did ease up for a little bit but have been worse the past 3-4 days. After the shocks occur she has a lingering pain in the right side neck and head. Denies radiating arm pain. She does have chronic weakness in the arms. Denies new weakness. Some neck soreness on the left of the neck. No falls since April. She has experienced urinary urgency with loss of control in the past. Last occurrence was a couple months ago at least. No bowel dysfunction. Ambulates independtley at home. [facility] pain management - previously had injections in the neck. Right knee replacement in 2020. Seen at [facility] ED for septic shock 02/08/21. Has not had any cervical injections since the knee replacement. Previously followed with Dr. Fuentes in rheumatology [phone] for systemic sclerosis, polymyositis. Has appointment with rheumatology to establish on 01/13/23. Worse with: reaching Better with: resting Interventions: Medications: ibuprofen, gabapentin (takes PRN due to drowsiness), prednisone (4mg daily) -Previously tried: flexeril Physical therapy: none Previous spine injection history: none Previous spine surgery: none PAIN EVALUATION 11/06/2022 1801 11/08/2022 1121 Pain Level: 7 5 Pain Location: Head Neck Mid back, Head Description: Numbness;Pressure;Radiating;Sharp ;Shooting;Spasm;Stiffness;Tightne ss Aching;Stiffness;Sore Duration Amount of Time: 24 7 Duration Units: Hours Months Frequency: Continuous Continuous Intervention/Comfort measure: Medication;Reposition;Massage;Pos itioning;Other: See comment Medication;Therapeutic techniques-CPRP;Exercise;Cold;Mas yesenia Comments: Always some pain and discomfort . -- Litigation: No Workers' Compensation: No YELLOW & BLUE FLAGS No-Neg Attitude; Back Pain is Disabling No-Avoiding Activity (for Fear of Pain) No-Depression or Anxiety Disorders No-Social Problems No-Substance Use Disorder No-Job Dissatisfaction No-Financial Disincentives Patient Entered Questionnaires Spine Questions 11/06/2022 Pain Location: Neck Pain Duration: More than 5 years Pain over last 6 months: Every day or nearly every day in the past 6 months Symptoms from neck/cervical spine: Yes Employment Status: Disabled for reasons other than back pain Involved in law suit/legal claim: No Spine Red Flags 11/06/2022 Any type of cancer: Yes Unexplained fever: No Bowel or bladder disfunction: No Unintentional weight loss: No Osteoporosis: Yes Neck Questionnaires 11/06/2022 Benzel Modified REYNALDO Score 11 (A lower score indicates increased pain and issues.) PROMIS Score Percentiles Physical Health 11/06/2022 Physical Function Percentile 3 Sleep Percentile 27* Fatigue Percentile 7 Pain Interference Percentile 1 PROMIS SOCIAL ROLE SCORE 11/06/2022 Social Role Satisfaction Percentile 4 PROMIS Global Health Scale 06/13/2015 12/31/2016 11/06/2022 Physical Health Percentile 4 7 4 Mental Health Percentile 3 3 9 Percentiles provide an indication of how the patient's score ranks in relation to the general population. Higher percentile rankings indicate better function/quality of life. 50th percentile is the average of the general population and indicates half of respondents had a worse score. Depression Screening: PHQ-9 12/31/2016 10/09/2018 11/06/2022 Score 13 11 9 PHQ-9 Self Harm 11/06/2022 Question 9 Not at all PHQ-9 Self-Harm (Item 9) response options: 0 Not at all 1 Several days 2 More than half the days 3 Nearly every day PHQ-9 Levels: 0-4 No - mild depression 5-9 Mild depression 10-14 Moderate depression 15-19 Moderately severe depression 20-27 Severe depression ACTIVE PROBLEM LIST Systemic sclerosis; CREST Degenerative Skin Disorder Unspecified Hypothyroidism Unspecified Disorder of Menstruation and Other Abnormal Bleeding From Female Genital Tract Dub (Dysfunctional Uterine Bleeding) Preop Exam for Internal Medicine Hypothyroidism Polymyositis (HCC) Raynaud's Syndrome Restrictive lung disease, Acute Productive Cough Urine, Incontinence, Stress Female Uterovaginal Prolapse Sleep Apnea Muscular Deconditioning Disturbance of sleep - including restless leg syndrome; but not MAURY Summary Adnexal Mass Restless Leg Syndrome Nausea Palpitations Healthcare Maintenance Ischemia of Digits of Hand Depression Exacerbation of Asthma Abnormal Sputum PAST MEDICAL HISTORY Diagnosis Date Asthma DUB (dysfunctional uterine bleeding) Hypoglycemia Hypothyroidism Polymyositis (HCC) Preop exam for internal medicine Raynaud's syndrome Raynaud's disease Restrictive lung disease Systemic sclerosis (HCC) Vitamin D deficiency PAST SURGICAL HISTORY Procedure Laterality Date APPENDECTOMY ARTHRP ACETBLR/PROX FEM PROSTC AGRFT/ALGRFT right hip DILATION & CURETTAGE DX&/THER NONOBSTETRIC Dilation & curettage LIG/TRNSXJ FLP TUBE ABDL/VAG APPR UNI/BI Tubal ligation MIDLINE INSERTION/CONSULT 08/22/2017 PAST SURGICAL HISTORY OF GI tube PAST SURGICAL HISTORY OF right vascular reconstruction PAST SURGICAL HISTORY OF tracheostomy PAST SURGICAL HISTORY OF removal of calcium deposits from right hand PAST SURGICAL HISTORY OF 2010 Hysterectomy Ovaries Intact Social History Tobacco Use Smoking status: Never Smokeless tobacco: Never Substance Use Topics Alcohol use: Yes Comment: occasionally Drug use: No FAMILY HISTORY Problem Relation Age of Onset Heart Mother Heart Father Heart Paternal Grandfather Cervical Cancer Sister Alzheimer's Disease Maternal Grandmother Cancer Maternal Grandmother unsure other (negative [Other]) Other negative for breast, ovary or endometrial ALLERGIES Allergen Reactions Fortaz [Ceftazidime] Hives Hives, itching, peeling, Aspirin capillaries break Betadine [Povidone-* Itching Clindamycin Other: See Comments Skin peel, red rash, weight gain, swelling in the face and legs. Itchy. Doxycycline Shortness of Breath, Myalgia Erythromycin Base diarrhea Penicillins Hives Tolerated zosyn 02/09 CURRENT MEDICATIONS: cholecalciferol (VITAMIN D3) 400 unit tab Take by mouth. multivitamin tablet Take by mouth. nitroglycerin sublingual (NITROQUICK) 0.4 mg SL tablet Nitroglycerin 0.4 MG Sublingual Tablet Sublingual Refills: 0 Active atorvastatin (LIPITOR) 40 mg tablet Take 1 tablet by mouth daily at bedtime. gabapentin (NEURONTIN) 100 mg capsule Take 2 capsules by mouth three times daily for 30 days. rOPINIRole (REQUIP) 0.25 mg tablet Take 1 tablet by mouth twice daily. albuterol (PROVENTIL) 2.5 mg /3 mL (0.083 %) nebulizer solution Use 3 mL via nebulizer every 4 hours. sodium chloride 7% solution 7 % nebu Inhale 4 mL as instructed twice daily. albuterol (PROVENTIL) 2.5 mg /3 mL (0.083 %) nebulizer solution Use 3 mL via nebulizer every 4 hours. Inhale over 5-15 minutes sodium chloride 7% solution 7 % nebu Inhale 4 mL as instructed twice daily. predniSONE (DELTASONE) 1 mg tablet Take 4 tablets by mouth once daily. NO REFILLS WITHOUT APPOINTMENT WITH DR FUENTES Ibuprofen 200 mg cap Take 800 mg by mouth three times daily. levothyroxine (SYNTHROID) 100 mcg tablet Take 1 tablet by mouth daily before breakfast. sertraline (ZOLOFT) 50 mg tablet Take 1 tablet by mouth daily at bedtime. Huybfnlh-Rmjkxew-Ljgw-Lutein tab Take 1 tablet by mouth once daily. Nebulizer and Compressor For Neb Bekah 1 Device as needed. Use as directed. ca carbonate/vitamin d3/vit k(VIACTIV 500 MG-100 UNIT-40 MCG CHEWABLE TAB) Take one(1) tablet two(2) times daily. cyclobenzaprine (FLEXERIL) 10 mg tablet Take 1 tablet by mouth three times daily as needed for muscle spasm or pain. Watch for drowsiness budesonide (PULMICORT) 0.5 mg/2 mL nebulizer solution Use 2 mL via nebulizer twice daily. budesonide (PULMICORT) 0.5 mg/2 mL nebulizer solution Use 2 mL via nebulizer every 12 hours. Inhale over 5-15 minutes (Patient not taking: Reported on 11/08/2022) traZODone (DESYREL) 50 mg tablet Take 1 tablet by mouth daily at bedtime. (Patient not taking: Reported on 11/08/2022) albuterol HFA (PROVENTIL HFA) 90 mcg/Actuation INHALATION inhaler Inhale 2 Puffs as instructed twice daily as needed (for shortness of breath and wheezing.). (Patient not taking: Reported on 11/08/2022) REVIEW OF SYSTEMS: PAIN ASSESSMENT: See HPI. GENERAL: Denies fever, chills CARDIOVASCULAR: Denies chest pain. RESPIRATORY: Denies SOB : Denies bowel or bladder incontinence MUSCULOSKELETAL: Positive for See HPI NEURO: Denies seizures ENDOCRINE: Denies diabetes HEMATOLOGY/LYMPHOLOGY: Had a skin lesion removed. Also an abnormal cell in uterine lining. OBJECTIVE: PHYSICAL EXAM BP 125/73 Pulse 70 Resp 16 Ht 158.8 cm (5' 2.5) Wt 45.5 kg (100 lb 4.8 oz) LMP 04/12/2010 SpO2 96% BMI 18.05 kg/m GENERAL APPEARANCE: thin SKIN: Head, neck, trunk, and extremities dry, intact and without lesions LUNGS: even and non-labored breathing, normal chest excursion NEURO/PSYCH: oriented to time, place, and person, speech normal, mental status intact GAIT: in wheelchair. Able to sit to stand and walk short distance independently POSTURE: Posture and spinal curves are normal PALPATION: no palpable masses, tenderness, or spasm, no palpable subluxation or step-off, no point tenderness over the spine. Right cervical paraspinal tenderness MUSCULOSKELETAL: Cervical Range of Motion Flexion Restricted Extension Restricted RIGHT LEFT Rotation Limited ROM with pain Limited ROM with pain Lateral Bend Limited ROM without pain Limited ROM with pain Upper Body Reflex Exam RIGHT LEFT Reflex Status Reflex Status Biceps 2+ Normal 2+ Normal Brachioradialis 2+ Normal 2+ Normal Brown's Sign Not able to assess Not able to assess Upper Extremity Strength RIGHT LEFT Strength (MMT) Strength (MMT) Shoulder Abduction 4+/5 2/5 Biceps 4+/5 3/5 Triceps 4/5 3/5 2nd finger amputation. Extended Low Back & Leg Exam RIGHT LEFT DTRs Knee Right knee replacement Normal Clonus negative Strength of Lower Extremities Hip Flexion 4+/5 4/5 Knee Extension 4+/5 4+/5 Ankle Dorsiflexion 4/5 4/5 Ankle Plantarflexion 4/5 4/5 NEUROSENSORY: Soft touch; Within Normal Limits Data Review: [facility] records independently reviewed Images independently reviewed with the patient CT cervical 09/19/22 () - disc copied C3 has 3 mm anterolisthesis and C4. The C6-7 disc height is mildly decreased posteriorly. The remaining vertebral body and disc space heights are normal. The right C2-3 and left C3-4 facet joints are fused. Occipital atlas articulations have moderate to severe degenerative changes bilaterally especially on the left. The C1-2 facet joints have severe degenerative much worse on the right with degenerative cyst formations along the articular surfaces and narrowing of the joint spaces bilaterally. The right lateral mass is decreased in height chronically compared to the left. No acute fractures or subluxations are noted. The temporomandibular joints have severe arthritic changes bilaterally, worse on the right with subcortical cysts and multiple cortical erosions. C2-3: No stenosis is noted. C3-4: The spinal canal is mildly stenosed by disc bulge abutting the cord. C4-5: The spinal canal is mildly to moderately stenosed with central disc protrusion abutting and slightly indenting the cord. C5-6: Spinal canal is mildly stenosed by disc bulge. C5-6: No stenosis is noted. C7-T1: No stenosis is noted. CT angio head and neck wwo IV contrast 09/19/22: - disc copied Head CT: The ventricles and sulci are normal, unchanged. No acute infarct, hemorrhage or mass is noted. The brain parenchyma enhances normally. The facial soft tissues are focally thinned/scarred anteriorly on the left superior to the lips. CTA HEAD FINDINGS: Anterior circulation: The right internal carotid siphon has focal atherosclerotic calcification without significant stenosis. No stenoses of the anterior middle cerebral arteries are noted. Posterior circulation: Bilateral intracranial vertebral arteries, vertebrobasilar junction, basilar artery and proximal posterior cerebral arteries are normal. CTA NECK FINDINGS: Right carotid vessels: The common carotid artery is normal. The carotid bifurcation is normal. The internal carotid artery in the chip is normal. There is 0% stenosis . Left carotid vessels: The common carotid artery is normal. The carotid bifurcation is normal. The internal carotid artery in the neck is normal. There is 0% stenosis . Vertebral vessels: The visualized segments of the cervical vertebral arteries are normal in caliber. The right lung apex has a collection of less than 1 cm cysts anteriorly and medially along the pleura. CT thoracic 04/22/22 () Alignment: Thoracic kyphosis is maintained Vertebral Body Heights: . interval development of acute fracture at T6 with approximately 30% loss of disc height and mild retropulsion at the superior posterior endplate. No significant canal stenosis. Vertebral body heights are otherwise maintained. Intervertebral Discs: The disc spaces are grossly preserved. Degenerative change: There is no significant spinal canal stenosis. No high-grade neural foraminal narrowing. Paraspinous Soft Tissues: Within normal limits. Airspace opacities in the lung bases, greater on the left concerning for pneumonia. ASSESSMENT/PLAN (M54.2) Neck pain (primary encounter diagnosis) (M47.812) Arthropathy of cervical facet joint (M81.0) Osteoporosis without current pathological fracture, unspecified osteoporosis type (M33.20) Polymyositis (HCC) 57 year old female with PMH including polymyositis, systemic sclerosis, osteoporosis. She is on prednisone 4mg daily. She has pain in the right side neck which shoot into right side of the head. This can be very severe. Initially started in May. She does have rheumatology evaluation in January. Recommend updated bone density scan as well. CT cervical spine shows severe degenerative changes at occipital atlas articulations and bilateral C1-2 facet joints. The right C2-3 and left C3-4 facet joints are fused. she did bring in a cervical x-ray but I cannot load the pictures. She will get a new copy and the radiology report to bring to her next visit. Recommend cervical MRI and evaluation with medical spine intervention physician to see if injections are an option. Likely not a candidate for surgery due to other medical conditions. She is interested in discussing further with a spine surgeon. 1. Imaging/diagnostics: cervical MRI, DXA. Obtain copy of outside cervical XR 2. Physical therapy: none 3. Medication: flexeril PRN 4. Referrals: spine surgery 5. Considerations: PT 6. Follow up: with medical spine physician for consideration of injections following MRI cervical spine I spent a total of 50 minutes on the date of the service which included preparing to see the patient, [id number] patient care, completing clinical documentation, obtaining and/or reviewing separately obtained history, performing a medically appropriate examination, counseling and educating the patient/family/caregiver, ordering medications, tests, or procedures, communicating with other HCPs (not separately reported), independently interpreting results (not separately reported), and communicating results to the patient/family/caregiver. Imaging Ordered: due to interventional planning and surgical planning. SIGNATURE: Vandana Stevens PA-C PATIENT NAME: Tennille Ortiz DATE: November 08, 2022 TIME: 10:32 AM documented in this encounter [facility] 09-21-2022 History of Present illness Narrative Subjective Patient ID: Tennille Ortiz is a 57 y.o. female who presents for ER Follow-up (Was in the ER on the ). ER follow up on head/neck pain CT shows C-3 fusion and DDD cervical spine ER Follow-up This is a chronic problem. The current episode started more than 1 month ago. The problem occurs intermittently. The problem has been gradually worsening. Associated symptoms include neck pain. Pertinent negatives include no anorexia, chest pain, nausea, numbness, vertigo or weakness. Exacerbated by: pain worse with movement. She has tried NSAIDs (muscle relaxer) for the symptoms. The treatment provided mild relief. Review of Systems Constitutional: Positive for activity change (decreased activity due to pain). Respiratory: Negative for chest tightness. Cardiovascular: Negative for chest pain, palpitations and leg swelling. Gastrointestinal: Negative for anorexia and nausea. Genitourinary: Negative for difficulty urinating. Musculoskeletal: Positive for neck pain. Skin: Negative for color change. Neurological: Negative for dizziness, vertigo, seizures, weakness, light-headedness and numbness. Objective BP 118/74 Pulse 88 Ht 1.575 m (5' 2) Wt 47.8 kg (105 lb 4.8 oz) BMI 19.26 kg/m Physical Exam Constitutional: General: She is not in acute distress. Appearance: Normal appearance. HENT: Head: Normocephalic. Eyes: Pupils: Pupils are equal, round, and reactive to light. Cardiovascular: Rate and Rhythm: Normal rate and regular rhythm. Pulmonary: Effort: Pulmonary effort is normal. Breath sounds: Normal breath sounds. Abdominal: General: Bowel sounds are normal. Palpations: Abdomen is soft. Tenderness: There is no abdominal tenderness. Musculoskeletal: General: Tenderness present. Normal range of motion. Cervical back: Tenderness present. No edema, deformity or erythema. Pain with movement present. Normal range of motion. Neurological: Mental Status: She is alert. Assessment/Plan Diagnoses and all orders for this visit: Cervical vertebral fusion - Referral to Orthopaedic Surgery; Future Degenerative disc disease, cervical - Referral to Orthopaedic Surgery; Future Chronic head pain - Referral to Orthopaedic Surgery; Future Neck pain - take Ibuprofen 800 mg every 8 hours as needed and may also take Tylenol 1000 mg up to 3 times daily as needed for pain. -Continue on previously prescribed muscle relaxer documented in this encounter [facility] Work Phone: 07-25-2022 History of Present illness Narrative Agree with CC as documented per ROSSY. Tennille is a 57-year-old female here for follow-up visit left shoulder pain. Patient did get good relief with the last cortisone injection here approximately 3 months ago. Patient has been doing activities as tolerated including home exercises. Patient does use ibuprofen on a as needed basis as well as Tylenol for symptom control.Fall 04/2022- seeing ortho (Manoj and referred to [facility]), spinal specialist, neuro and pain mgmt for c spine degenerative condition. Patient continues with multiple social determinants of health that are affecting her health care. [facility] [address] Work Phone: 04-17-2022 History of Present illness Narrative Tennille is a 57 yo female here today for ER follow up. She was seen in ER on 04/17/22 and again on 04/22/2022 for injury after a fall. She fell at home on 04/16/22 after losing her balance in the bathroom in middle of night, she reports she fell onto a cardboard box.T 6 fracture and pneumoniacontinues to have pain to left rib/middle back painfall at homeER follow updid not call [facility] to schedule neuro consult [facility] Work Phone: 04-17-2022 History of Present illness Narrative Tennille is a 57 yo female here today for ER follow up. She was seen in ER on 04/17/22 and again on 04/22/2022 for injury after a fall. She fell at home on 04/16/22 after losing her balance in the bathroom in middle of night, she reports she fell onto a cardboard box.T 6 fracture and pneumoniacontinues to have pain to left rib/middle back paindid not call Manoj to schedule neuro consultno new concerns today [facility] Work Phone: 04-02-2022 History of Present illness Narrative Agree with CC as noted. Tennille is a pleasant 57-year-old female here for evaluation of ongoing left shoulder pain. Patient states she got good relief with her last injection on 04/02/2022. Patient states since that time she did incur a fall and fractured ribs and T6&7. She did not require any surgical intervention, continues to have some pain in the thoracic region and is slowly progressing since the injury. She states it did aggravate her shoulder symptoms. Patient does take Tylenol on a as needed basis in addition to routine medications. Denies any numbness or tingling. [facility] [address] Work Phone: 03-05-2022 History of Present illness Narrative Agree with CC as documented per ROSSY. Tennille is a 57-year-old female requesting cortisone injection of her left shoulder today. Patient had previously had an appointment scheduled for March 05, 2022, but was unable to attend, life got in the way. Patient does use ibuprofen on a as needed basis as well as Tylenol for symptom control with a lessened effect over time. Patient states her range of motion and pain is progressively worse over the last month. Pain is extending from the shoulder into the posterior upper trap and upper back. She states this was significantly improved after the cortisone injection she previously received. She did attend some physical therapy and is doing the home exercises as tolerated. Patient has not followed up for surgical referral due to complications after knee replacement that created significant alterations in lifestyle. Patient also has multiple social determinants of health that are affecting what care she is pursuing at this time. She is tentatively losing the place where she is living as well as concern for loss of income but she is in the process of juggling. [facility] [address] Work Phone: 03-05-2022 History of Present illness Narrative Agree with CC as documented per ROSSY. Tennille is a 57-year-old female requesting cortisone injection of her left shoulder today. Patient had previously had an appointment scheduled for March 05, 2022, but was unable to attend, life got in the way. Patient does use ibuprofen on a as needed basis as well as Tylenol for symptom control with a lessened effect over time. Patient states her range of motion and pain is progressively worse over the last month. Pain is extending from the shoulder into the posterior upper trap and upper back. She states this was significantly improved after the cortisone injection she previously received. She did attend some physical therapy and is doing the home exercises as tolerated. Patient has not followed up for surgical referral due to complications after knee replacement that created significant alterations in lifestyle. Patient also has multiple social determinants of health that are affecting what care she is pursuing at this time. She is tentatively losing the place where she is living as well as concern for loss of income but she is in the process of juggling.Good relief with last injection.04/2022- seeing ortho (Manoj and referred to [facility]), spinal specialist, neuro and pain mgmt for severe c spine degenerative condition. [facility] Work Phone: 12-02-2021 Chief complaint Narrative - Reported Follow-up) for re-evaluation of left shoulder pain (adhesive capsulitis) as she was previously seen in office in 12/2021 in which a corticosteroid injection was administered into the left shoulder and a referral to PT made. She states the first two PT sessions went well and she believes the corticosteroid injection overall reduced her pain. However, she did overhead reach on Tuesday causing increased pain of the lateral deltoid region of her arm. She continues to have the pain and discomfort at this time, especially with abduction and FE. [facility] 300 Work Phone: 12-02-2021 Chief complaint Narrative - Reported Follow-up) for re-evaluation of left shoulder pain (adhesive capsulitis) as she was previously seen in office in 12/2021 in which a corticosteroid injection was administered into the left shoulder and a referral to PT made. She states the first two PT sessions went well and she believes the corticosteroid injection overall reduced her pain. However, she did overhead reach on Tuesday causing increased pain of the lateral deltoid region of her arm. She continues to have the pain and discomfort at this time, especially with abduction and FE. [facility] [address] Work Phone: 03-12-2021 History of Present illness Narrative Patient was seen today in the office. She relates a history of having successful right knee replacement done at [facility] and then within a couple days after her discharge from the hospital she developed worsening medical condition and was initially sent to [place] but then they transferred her to [facility]. She was in the hospital there from 02 06-02 20 with pneumonia, some history of mucous plugging and sepsis according to the notes I have received. We have not yet received the records from the [facility]. She was not discharged on any oxygen to the home. She has albuterol treatments 4 times daily and Pulmicort 0.5 mg nebulized twice daily along with hypertonic saline (7%) to be used twice daily without bronchodilator.Patient denies having any respiratory problems at this point and is not having any trouble clearing her airway secretions. She did have a problems with extremely sore throat and upper airway most likely secondary to her being intubated at the [facility] and also possibly at [facility]. Patient reports no memory of the surgery and no memory of the first 2 weeks of her stay at [facility]. Last thing she remembers is being in preop holding prior to her knee surgery.Patient does report that her knee is doing very well and she is ambulating without difficulty. -Pulmonary Medicine-[place] [id number] DO Work Phone: 02-23-2021 History of Past i llness Narrative Problem Noted Date Resolved Date Hypercapnic respiratory failure 02/23/2021 02/24/2021 Acute on chronic respiratory failure with hypoxi a 02/14/2021 02/24/2021 HARDIK (acute kidney injury) 02/09/20212020 Acute liver failure 02/08/2021 02/24/2021 Transaminitis 03/07/2013 02/24/2021 Overview: Discordant with infectious, toxic, or congestive patterns per patient history and physical exam. Denies recent acute abdominal illness Denies exposure to hepatotoxic agents. Last ECHO with EF of 65% with RVSP of 28 Positive Exposure to HCV in late Plan: - Avoid hepatotoxic agents - Follow with CMP - Check ASMA, Acetaminophen, Hepatitis serology documented as of this encounter (statuses as of 11/09/2022) [facility]08-23-2021 History of Past illness Narrative* Problem Noted Date Resolved Date Hypercapnic respiratory failure 02/23/2021 02/24/2021 Acute on chronic respiratory failure with hypoxi a 02/14/2021 02/24/2021 HARDIK (acute kidney injury) 02/09/20212020 Acute liver failure 02/08/2021 02/24/2021 Transaminitis 03/07/2013 02/24/2021 Overview: Discordant with infectious, toxic, or congestive patterns per patient history and physical exam. Denies recent acute abdominal illness Denies exposure to hepatotoxic agents. Last ECHO with EF of 65% with RVSP of 28 Positive Exposure to HCV in late Plan: - Avoid hepatotoxic agents - Follow with CMP - Check ASMA, Acetaminophen, Hepatitis serology documented as of this encounter (statuses as of 11/09/2022) [facility]08-23-2021 History of Past illness Narrative* Problem Noted Date Diagnosed Date Resolved Date Hypercapnic respiratory failure 02/23/2021 02/24/2021 Acute on chronic respiratory failure with hypoxia 02/14/2021 02/24/2021 HARDIK (acute kidney injury) 02/09/2021 Acute liver failure 02/08/2021 02/25/20 21 Transaminitis 03/07/2013 02/24/2021 Overview: Discordant with infectious, toxic, or congestive patterns per patient history and physical exam. Denies recent acute abdominal illness Denies exposure to hepatotoxic agents. Last ECHO with EF of 65% with RVSP of 28 Positive Exposure to HCV in late Plan: - Avoid hepatotoxic agents - Follow with CMP - Check ASMA, Acetaminophen, Hepatitis serology documented as of this encounter (statuses as of 01/11/2023) [facility]08-23-2021 History of Past illness Narrative* Problem Noted Date Diagnosed Date Resolved Date Hypercapnic respiratory failure 02/23/2021 02/24/2021 Acute on chronic respiratory failure with hypoxia 02/14/2021 02/24/2021 HARDIK (acute kidney injury) 02/09/2021 Acute liver failure 02/08/2021 02/25/20 21 Transaminitis 03/07/2013 02/24/2021 Overview: Discordant with infectious, toxic, or congestive patterns per patient history and physical exam. Denies recent acute abdominal illness Denies exposure to hepatotoxic agents. Last ECHO with EF of 65% with RVSP of 28 Positive Exposure to HCV in late Plan: - Avoid hepatotoxic agents - Follow with CMP - Check ASMA, Acetaminophen, Hepatitis serology documented as of this encounter (statuses as of 01/18/2023) [facility]-23-2021 History of Past illness Narrative* Problem Noted Date Diagnosed Date Resolved Date Hypercapnic respiratory failure 02/23/2021 02/24/2021 Acute on chronic respiratory failure with hypoxia 02/14/2021 02/24/2021 HARDIK (acute kidney injury) 02/09/2021 Acute liver failure 02/08/2021 02/25/20 21 Transaminitis 03/07/2013 02/24/2021 Overview: Discordant with infectious, toxic, or congestive patterns per patient history and physical exam. Denies recent acute abdominal illness Denies exposure to hepatotoxic agents. Last ECHO with EF of 65% with RVSP of 28 Positive Exposure to HCV in late Plan: - Avoid hepatotoxic agents - Follow with CMP - Check ASMA, Acetaminophen, Hepatitis serology documented as of this encounter (statuses as of 01/19/2023) [facility]-2021 History of Past illness Narrative* Problem Noted Date Diagnosed Date Resolved Date Hypercapnic respiratory failure 02/23/2021 02/24/2021 Acute on chronic respiratory failure with hypoxia 02/14/2021 02/24/2021 HARDIK (acute kidney injury) 02/09/2021 Acute liver failure 02/08/2021 02/25/20 21 Transaminitis 03/07/2013 02/24/2021 Overview: Discordant with infectious, toxic, or congestive patterns per patient history and physical exam. Denies recent acute abdominal illness Denies exposure to hepatotoxic agents. Last ECHO with EF of 65% with RVSP of 28 Positive Exposure to HCV in late Plan: - Avoid hepatotoxic agents - Follow with CMP - Check ASMA, Acetaminophen, Hepatitis serology documented as of this encounter (statuses as of 01/27/2023) [facility]2021 History of Past illness Narrative* Problem Noted Date Diagnosed Date Resolved Date Hypercapnic respiratory failure 02/23/2021 02/24/2021 Acute on chronic respiratory failure with hypoxia 02/14/2021 02/24/2021 HARDIK (acute kidney injury) 02/09/2021 Acute liver failure 02/08/2021 02/25/20 21 Transaminitis 03/07/2013 02/24/2021 Overview: Discordant with infectious, toxic, or congestive patterns per patient history and physical exam. Denies recent acute abdominal illness Denies exposure to hepatotoxic agents. Last ECHO with EF of 65% with RVSP of 28 Positive Exposure to HCV in late Plan: - Avoid hepatotoxic agents - Follow with CMP - Check ASMA, Acetaminophen, Hepatitis serology documented as of this encounter (statuses as of 02/01/2023) [facility]2021 History of Past illness Narrative* Problem Noted Date Diagnosed Date Resolved Date Hypercapnic respiratory failure 02/23/2021 02/24/2021 Acute on chronic respiratory failure with hypoxia 02/14/2021 02/24/2021 HARDIK (acute kidney injury) 02/09/2021 Acute liver failure 02/08/2021 02/25/20 21 Transaminitis 03/07/2013 02/24/2021 Overview: Discordant with infectious, toxic, or congestive patterns per patient history and physical exam. Denies recent acute abdominal illness Denies exposure to hepatotoxic agents. Last ECHO with EF of 65% with RVSP of 28 Positive Exposure to HCV in late Plan: - Avoid hepatotoxic agents - Follow with CMP - Check ASMA, Acetaminophen, Hepatitis serology documented as of this encounter (statuses as of 02/22/2023) [facility]2021 History of Past illness Narrative* Problem Noted Date Diagnosed Date Resolved Date Hypercapnic respiratory failure 02/23/2021 02/24/2021 Acute on chronic respiratory failure with hypoxia 02/14/2021 02/24/2021 HARDIK (acute kidney injury) 02/09/2021 Acute liver failure 02/08/2021 02/25/20 21 Transaminitis 03/07/2013 02/24/2021 Overview: Discordant with infectious, toxic, or congestive patterns per patient history and physical exam. Denies recent acute abdominal illness Denies exposure to hepatotoxic agents. Last ECHO with EF of 65% with RVSP of 28 Positive Exposure to HCV in late Plan: - Avoid hepatotoxic agents - Follow with CMP - Check ASMA, Acetaminophen, Hepatitis serology documented as of this encounter (statuses as of 02/28/2023) [facility]21 History of Past illness Narrative* Problem Noted Date Diagnosed Date Resolved Date Hypercapnic respiratory failure 02/23/2021 02/24/2021 Acute on chronic respiratory failure with hypoxia 02/14/2021 02/24/2021 HARDIK (acute kidney injury) 02/09/2021 Acute liver failure 02/08/2021 02/25/20 21 Transaminitis 03/07/2013 02/24/2021 Overview: Discordant with infectious, toxic, or congestive patterns per patient history and physical exam. Denies recent acute abdominal illness Denies exposure to hepatotoxic agents. Last ECHO with EF of 65% with RVSP of 28 Positive Exposure to HCV in late Plan: - Avoid hepatotoxic agents - Follow with CMP - Check ASMA, Acetaminophen, Hepatitis serology documented as of this encounter (statuses as of 04/21/2023) [facility]2021 History of Past illness Narrative* Problem Noted Date Diagnosed Date Resolved Date Hypercapnic respiratory failure 02/23/2021 02/24/2021 Acute on chronic respiratory failure with hypoxia 02/14/2021 02/24/2021 HARDIK (acute kidney injury) 02/09/2021 Acute liver failure 02/08/2021 02/25/20 21 Transaminitis 03/07/2013 02/24/2021 Overview: Discordant with infectious, toxic, or congestive patterns per patient history and physical exam. Denies recent acute abdominal illness Denies exposure to hepatotoxic agents. Last ECHO with EF of 65% with RVSP of 28 Positive Exposure to HCV in late Plan: - Avoid hepatotoxic agents - Follow with CMP - Check ASMA, Acetaminophen, Hepatitis serology documented as of this encounter (statuses as of 04/25/2023) [facility]2021 History of Past illness Narrative* Problem Noted Date Diagnosed Date Resolved Date Hypercapnic respiratory failure 02/23/2021 02/24/2021 Acute on chronic respiratory failure with hypoxia 02/14/2021 02/24/2021 HARDIK (acute kidney injury) 02/09/2021 Acute liver failure 02/08/2021 02/25/20 21 Transaminitis 03/07/2013 02/24/2021 Overview: Discordant with infectious, toxic, or congestive patterns per patient history and physical exam. Denies recent acute abdominal illness Denies exposure to hepatotoxic agents. Last ECHO with EF of 65% with RVSP of 28 Positive Exposure to HCV in late Plan: - Avoid hepatotoxic agents - Follow with CMP - Check ASMA, Acetaminophen, Hepatitis serology documented as of this encounter (statuses as of 04/28/2023) [facility] History of Past illness Narrative* Problem Noted Date Diagnosed Date Resolved Date Hypercapnic respiratory failure 02/23/2021 02/24/2021 Acute on chronic respiratory failure with hypoxia 02/14/2021 02/24/2021 HARDIK (acute kidney injury) 02/09/2021 Acute liver failure 02/08/2021 02/25/20 21 Transaminitis 03/07/2013 02/24/2021 Overview: Discordant with infectious, toxic, or congestive patterns per patient history and physical exam. Denies recent acute abdominal illness Denies exposure to hepatotoxic agents. Last ECHO with EF of 65% with RVSP of 28 Positive Exposure to HCV in late Plan: - Avoid hepatotoxic agents - Follow with CMP - Check ASMA, Acetaminophen, Hepatitis serology documented as of this encounter (statuses as of 05/05/2023) [facility]21 History of Past illness Narrative* Problem Noted Date Diagnosed Date Resolved Date Hypercapnic respiratory failure 02/23/2021 02/24/2021 Acute on chronic respiratory failure with hypoxia 02/14/2021 02/24/2021 HARDIK (acute kidney injury) 02/09/2021 Acute liver failure 02/08/2021 02/25/20 21 Transaminitis 03/07/2013 02/24/2021 Overview: Discordant with infectious, toxic, or congestive patterns per patient history and physical exam. Denies recent acute abdominal illness Denies exposure to hepatotoxic agents. Last ECHO with EF of 65% with RVSP of 28 Positive Exposure to HCV in late Plan: - Avoid hepatotoxic agents - Follow with CMP - Check ASMA, Acetaminophen, Hepatitis serology documented as of this encounter (statuses as of 05/08/2023) [facility] History of Past illness Narrative* Problem Noted Date Diagnosed Date Resolved Date Hypercapnic respiratory failure 02/23/2021 02/24/2021 Acute on chronic respiratory failure with hypoxia 02/14/2021 02/24/2021 HARDIK (acute kidney injury) 02/09/2021 Acute liver failure 02/08/2021 02/25/20 21 Transaminitis 03/07/2013 02/24/2021 Overview: Discordant with infectious, toxic, or congestive patterns per patient history and physical exam. Denies recent acute abdominal illness Denies exposure to hepatotoxic agents. Last ECHO with EF of 65% with RVSP of 28 Positive Exposure to HCV in late Plan: - Avoid hepatotoxic agents - Follow with CMP - Check ASMA, Acetaminophen, Hepatitis serology documented as of this encounter (statuses as of 05/24/2023) [facility]2021 History of Past illness Narrative* Problem Noted Date Diagnosed Date Resolved Date Hypercapnic respiratory failure 02/23/2021 02/24/2021 Acute on chronic respiratory failure with hypoxia 02/14/2021 02/24/2021 HARDIK (acute kidney injury) 02/09/2021 Acute liver failure 02/08/2021 02/25/20 21 Transaminitis 03/07/2013 02/24/2021 Overview: Discordant with infectious, toxic, or congestive patterns per patient history and physical exam. Denies recent acute abdominal illness Denies exposure to hepatotoxic agents. Last ECHO with EF of 65% with RVSP of 28 Positive Exposure to HCV in late Plan: - Avoid hepatotoxic agents - Follow with CMP - Check ASMA, Acetaminophen, Hepatitis serology documented as of this encounter (statuses as of 05/26/2023) [facility]2021 History of Past illness Narrative* Problem Noted Date Diagnosed Date Resolved Date Hypercapnic respiratory failure 02/23/2021 02/24/2021 Acute on chronic respiratory failure with hypoxia 02/14/2021 02/24/2021 HARDIK (acute kidney injury) 02/09/2021 Acute liver failure 02/08/2021 02/25/20 21 Transaminitis 03/07/2013 02/24/2021 Overview: Discordant with infectious, toxic, or congestive patterns per patient history and physical exam. Denies recent acute abdominal illness Denies exposure to hepatotoxic agents. Last ECHO with EF of 65% with RVSP of 28 Positive Exposure to HCV in late Plan: - Avoid hepatotoxic agents - Follow with CMP - Check ASMA, Acetaminophen, Hepatitis serology documented as of this encounter (statuses as of 05/26/2023) [facility] History of Past illness Narrative* Problem Noted Date Diagnosed Date Resolved Date Hypercapnic respiratory failure 02/23/2021 02/24/2021 Acute on chronic respiratory failure with hypoxia 02/14/2021 02/24/2021 HARDIK (acute kidney injury) 02/09/2021 Acute liver failure 02/08/2021 02/25/20 21 Transaminitis 03/07/2013 02/24/2021 Overview: Discordant with infectious, toxic, or congestive patterns per patient history and physical exam. Denies recent acute abdominal illness Denies exposure to hepatotoxic agents. Last ECHO with EF of 65% with RVSP of 28 Positive Exposure to HCV in late Plan: - Avoid hepatotoxic agents - Follow with CMP - Check ASMA, Acetaminophen, Hepatitis serology documented as of this encounter (statuses as of 05/27/2023) [facility] History of Past illness Narrative* Problem Noted Date Diagnosed Date Resolved Date Hypercapnic respiratory failure 02/23/2021 02/24/2021 Acute on chronic respiratory failure with hypoxia 02/14/2021 02/24/2021 HARDIK (acute kidney injury) 02/09/2021 Acute liver failure 02/08/2021 02/25/20 21 Transaminitis 03/07/2013 02/24/2021 Overview: Discordant with infectious, toxic, or congestive patterns per patient history and physical exam. Denies recent acute abdominal illness Denies exposure to hepatotoxic agents. Last ECHO with EF of 65% with RVSP of 28 Positive Exposure to HCV in late Plan: - Avoid hepatotoxic agents - Follow with CMP - Check ASMA, Acetaminophen, Hepatitis serology documented as of this encounter (statuses as of 05/31/2023) [facility]2021 History of Past illness Narrative* Problem Noted Date Diagnosed Date Resolved Date Hypercapnic respiratory failure 02/23/2021 02/24/2021 Acute on chronic respiratory failure with hypoxia 02/14/2021 02/24/2021 HARDIK (acute kidney injury) 02/09/2021 Acute liver failure 02/08/2021 02/25/20 21 Transaminitis 03/07/2013 02/24/2021 Overview: Discordant with infectious, toxic, or congestive patterns per patient history and physical exam. Denies recent acute abdominal illness Denies exposure to hepatotoxic agents. Last ECHO with EF of 65% with RVSP of 28 Positive Exposure to HCV in late Plan: - Avoid hepatotoxic agents - Follow with CMP - Check ASMA, Acetaminophen, Hepatitis serology documented as of this encounter (statuses as of 06/07/2023) [facility] History of Past illness Narrative* Problem Noted Date Diagnosed Date Resolved Date Hypercapnic respiratory failure 02/23/2021 02/24/2021 Acute on chronic respiratory failure with hypoxia 02/14/2021 02/24/2021 HARDIK (acute kidney injury) 02/09/2021 Acute liver failure 02/08/2021 02/25/20 21 Transaminitis 03/07/2013 02/24/2021 Overview: Discordant with infectious, toxic, or congestive patterns per patient history and physical exam. Denies recent acute abdominal illness Denies exposure to hepatotoxic agents. Last ECHO with EF of 65% with RVSP of 28 Positive Exposure to HCV in late Plan: - Avoid hepatotoxic agents - Follow with CMP - Check ASMA, Acetaminophen, Hepatitis serology documented as of this encounter (statuses as of 08/22/2023) [facility] History of Past illness Narrative* Problem Noted Date Diagnosed Date Resolved Date Hypercapnic respiratory failure 02/23/2021 02/24/2021 Acute on chronic respiratory failure with hypoxia 02/14/2021 02/24/2021 HARDIK (acute kidney injury) 02/09/2021 Acute liver failure 02/08/2021 02/25/20 21 Transaminitis 03/07/2013 02/24/2021 Overview: Discordant with infectious, toxic, or congestive patterns per patient history and physical exam. Denies recent acute abdominal illness Denies exposure to hepatotoxic agents. Last ECHO with EF of 65% with RVSP of 28 Positive Exposure to HCV in late Plan: - Avoid hepatotoxic agents - Follow with CMP - Check ASMA, Acetaminophen, Hepatitis serology documented as of this encounter (statuses as of 08/26/2023) [facility] History of Past illness Narrative* Problem Noted Date Diagnosed Date Resolved Date Hypercapnic respiratory failure 02/23/2021 02/24/2021 Acute on chronic respiratory failure with hypoxia 02/14/2021 02/24/2021 HARDIK (acute kidney injury) 02/09/2021 Acute liver failure 02/08/2021 02/25/20 21 Transaminitis 03/07/2013 02/24/2021 Overview: Discordant with infectious, toxic, or congestive patterns per patient history and physical exam. Denies recent acute abdominal illness Denies exposure to hepatotoxic agents. Last ECHO with EF of 65% with RVSP of 28 Positive Exposure to HCV in late Plan: - Avoid hepatotoxic agents - Follow with CMP - Check ASMA, Acetaminophen, Hepatitis serology documented as of this encounter (statuses as of 08/26/2023) [facility]-23-2021 History of Past illness Narrative* Problem Noted Date Diagnosed Date Resolved Date Hypercapnic respiratory failure 02/23/2021 02/24/2021 Acute on chronic respiratory failure with hypoxia 02/14/2021 02/24/2021 HARDIK (acute kidney injury) 02/09/2021 Acute liver failure 02/08/2021 02/25/20 21 Transaminitis 03/07/2013 02/24/2021 Overview: Discordant with infectious, toxic, or congestive patterns per patient history and physical exam. Denies recent acute abdominal illness Denies exposure to hepatotoxic agents. Last ECHO with EF of 65% with RVSP of 28 Positive Exposure to HCV in late Plan: - Avoid hepatotoxic agents - Follow with CMP - Check ASMA, Acetaminophen, Hepatitis serology documented as of this encounter (statuses as of 09/23/2023) [facility]-23-2021 History of Past illness Narrative* Problem Noted Date Diagnosed Date Resolved Date Hypercapnic respiratory failure 02/23/2021 02/24/2021 Acute on chronic respiratory failure with hypoxia 02/14/2021 02/24/2021 HARDIK (acute kidney injury) 02/09/2021 Acute liver failure 02/08/2021 02/25/20 21 Transaminitis 03/07/2013 02/24/2021 Overview: Discordant with infectious, toxic, or congestive patterns per patient history and physical exam. Denies recent acute abdominal illness Denies exposure to hepatotoxic agents. Last ECHO with EF of 65% with RVSP of 28 Positive Exposure to HCV in late Plan: - Avoid hepatotoxic agents - Follow with CMP - Check ASMA, Acetaminophen, Hepatitis serology documented as of this encounter (statuses as of 10/13/2023) [facility]21 History of Past illness Narrative* Problem Noted Date Diagnosed Date Resolved Date Hypercapnic respiratory failure 02/23/2021 02/24/2021 Acute on chronic respiratory failure with hypoxia 02/14/2021 02/24/2021 HARDIK (acute kidney injury) 02/09/2021 Acute liver failure 02/08/2021 02/25/20 21 Transaminitis 03/07/2013 02/24/2021 Overview: Discordant with infectious, toxic, or congestive patterns per patient history and physical exam. Denies recent acute abdominal illness Denies exposure to hepatotoxic agents. Last ECHO with EF of 65% with RVSP of 28 Positive Exposure to HCV in late Plan: - Avoid hepatotoxic agents - Follow with CMP - Check ASMA, Acetaminophen, Hepatitis serology documented as of this encounter (statuses as of 10/21/2023) [facility] History of Past illness Narrative* Problem Noted Date Diagnosed Date Resolved Date Hypercapnic respiratory failure 02/23/2021 02/24/2021 Acute on chronic respiratory failure with hypoxia 02/14/2021 02/24/2021 HARDIK (acute kidney injury) 02/09/2021 Acute liver failure 02/08/2021 02/25/20 21 Transaminitis 03/07/2013 02/24/2021 Overview: Discordant with infectious, toxic, or congestive patterns per patient history and physical exam. Denies recent acute abdominal illness Denies exposure to hepatotoxic agents. Last ECHO with EF of 65% with RVSP of 28 Positive Exposure to HCV in late Plan: - Avoid hepatotoxic agents - Follow with CMP - Check ASMA, Acetaminophen, Hepatitis serology documented as of this encounter (statuses as of 10/21/2023) [facility] History of Past illness Narrative* Problem Noted Date Diagnosed Date Resolved Date Hypercapnic respiratory failure 02/23/2021 02/24/2021 Acute on chronic respiratory failure with hypoxia 02/14/2021 02/24/2021 HARDIK (acute kidney injury) 02/09/2021 Acute liver failure 02/08/2021 02/25/20 Transaminitis 03/07/2013 02/24/2021 Overview: Discordant with infectious, toxic, or congestive patterns per patient history and physical exam. Denies recent acute abdominal illness Denies exposure to hepatotoxic agents. Last ECHO with EF of 65% with RVSP of 28 Positive Exposure to HCV in late Plan: - Avoid hepatotoxic agents - Follow with CMP - Check ASMA, Acetaminophen, Hepatitis serology documented as of this encounter (statuses as of 10/22/2023) [facility]08-04-2021 Chief complaint Narrative - Reported* S/P Right TKR 02/04/2021 * Pt states she has not had COVID-19 vaccine. * TENNILLE ORTIZ is here for a follow-up visit. * Reason for Visit: ILD; F/U [facility]. * Appointment requested by: Abelardo Abraham. -Pulmonary Medicine-[place] [id number] DO Work Phone: [phone]) [phone] History of Present illness Narrative* The patient is being seen for the subsequent annual wellness visit. * Past Medical, Surgical and Family History: reviewed and updated in chart. * Interval History: Patient has had 02/04/21 and 02/07/21 previous hospitalizations. See additional notes * Medications and Supplements: Medications and supplements, including calcium and vitamins reviewed and updated in chart. * No, the patient is not using opioids. * Patient Self Assessment of Health Status: good. * Tobacco use: Non-User * Alcohol use: As noted in social history * Illicit drug use: Non-User * Current diet: well balanced diet, does consume adequate fluids and does consume caffeine. * Exercise Frequency: regularly. * Depression/Suicide Screening: Patient has a current diagnosis of depression. * Hearing Impairment: none. * Cognitive Impairment: No cognitive impairment observed. * Bathing: needs assistance. * Dressing: performs independently. * Walking: needs assistance. * Managing Finances: performs independently. * Shopping: performs independently. * Managing Medications: performs independently. * Housework / Basic Home Maintenance: performs independently. * Falls Risk Screening:. TENNILLE has not fallen in the last 6 months. * Home safety risk factors: none. * Advance directives:. Patient has living will. Patient has healthcare POA. * Here to follow up hospitalization * Recent visit with Dr. Rose 03/11/21. Has follow up 04/10/21. Note reviewed. Resuming Breo inhaler. * Right knee replacement healing well. Dr. Reeves did the replacement 02/04/21 and surgery went well. Discharged home 02/06/21. * Went back to ER 02/07/21 with decreased mental status, decreased oral intake, decreased urination. ERreport from [facility] reviewed. CXR showing pneumonia, septic shock from pneumonia. Was sent to [facility] in [place] from [facility] ER. I don't have the reports to review at this time. States was told she unruly in the Squad while going up to [place] and while there for a time. * Pt. reports doesn't remember anything regarding her hospitalization at [facility] until 02/17/21. Lost my memory for about 2 weeks. Was discharged from [facility] 02/24/21 per pt. * Has been fine since she has been home. Eating and drinking well, Ensure and protein drinks days when she doesn't eat one of her meals. * [place] she didn't need further OT. I could do everything. * Cancelled her PT and home health this week. Feels like she is doing well. * Only mild discomfort right knee when arising from certain height of chairs. No pain at rest or withwalking. Still doing HEP. * Has follow up with Dr Reeves next week. [facility] Work Phone: [phone]) [phone] History of Present illness Narrative* The patient is being seen for the subsequent annual wellness visit. * Past Medical, Surgical and Family History: reviewed and updated in chart. * Interval History: Patient has had 02/04/21 and 02/07/21 previous hospitalizations. See additional notes * Medications and Supplements: Medications and supplements, including calcium and vitamins reviewed and updated in chart. * No, the patient is not using opioids. * Patient Self Assessment of Health Status: good. * Tobacco use: Non-User * Alcohol use: As noted in social history * Illicit drug use: Non-User * Current diet: well balanced diet, does consume adequate fluids and does consume caffeine. * Exercise Frequency: regularly. * Depression/Suicide Screening: Patient has a current diagnosis of depression. * Hearing Impairment: none. * Cognitive Impairment: No cognitive impairment observed. * Bathing: needs assistance. * Dressing: performs independently. * Walking: needs assistance. * Managing Finances: performs independently. * Shopping: performs independently. * Managing Medications: performs independently. * Housework / Basic Home Maintenance: performs independently. * Falls Risk Screening:. TENNILLE has not fallen in the last 6 months. * Home safety risk factors: none. * Advance directives:. Patient has living will. Patient has healthcare POA. * Here to follow up hospitalization * Recent visit with Dr. Rose 03/11/21. Has follow up 04/10/21. Note reviewed. Resuming Breo inhaler. * Right knee replacement healing well. Dr. Barnes did the replacement 02/04/21 and surgery went well. Discharged home 02/06/21. * Went back to ER 02/07/21 with decreased mental status, decreased oral intake, decreased urination. ERreport from [facility] reviewed. CXR showing pneumonia, septic shock from pneumonia. Was sent to [facility] in [place] from [facility] ER. I don't have the reports to review at this time. States was told she unruly in the Squad while going up to [place] and while there for a time. * Pt. reports doesn't remember anything regarding her hospitalization at [facility] until 02/17/21. Lost my memory for about 2 weeks. Was discharged from [facility] 02/24/21 per pt. * Has been fine since she has been home. Eating and drinking well, Ensure and protein drinks days when she doesn't eat one of her meals. * [place] she didn't need further OT. I could do everything. * Cancelled her PT and home health this week. Feels like she is doing well. * Only mild discomfort right knee when arising from certain height of chairs. No pain at rest or withwalking. Still doing HEP. * Has follow up with Dr Barnes next week. [facility] Work Phone: [phone]) [phone] Chief complaint Narrative - ReportedNEW) Referral from PCP Evaristo Du CNP for further evaluation and treatment of left shoulder pain. Onset: 02/2021. XR series of the left shoulder performed on 12/09/2021. She has some significant health issues at this time and she was reporting to the ED back in 02/2021 due to severe illness and someoneassisting her felt a ''pop'' at her shoulder. She has since been symptomatic with pain and limited ROM of the shoulder due to pain. She states symptoms were more mild at first, lately have been more severe as she is unable to overhead ROM with the left arm due to pain. She denies any significant treatments to date. She denies any significant issues with the shoulder prior to Feb 2021 or surgical history. [facility] [address] Work Phone: [phone]) 430-452908-01-2021 History of Present illness Narrative* Tennille is a 56 yo female here today with complaints of left shoulder pain. She reports injury in 02/2021 to left shoulder when being lifted/transferred from couch to car (carried). After this incident Patient was hospitalized for several weeks for PE and sepsis. Discharged home with home care and therapy. Pain has persisted to left shoulder. ROM is very limited. * No Xray or scans * PMHx significant for, alf steroid use, osteoporosis, polymyositis, and scleroderma. * Left shoulder pain 10/10 with movement, at rest pain 2/10, pain increases with any ROM [facility] Work Phone: [phone]) 437-358908-01-2021 History of Present illness NarrativeAgree with CC as documented per ROSSY. Tennille is a 56-year-old female presenting today for left shoulder evaluation after being referred by her PCP patient reports left shoulder pain since February 2021. There was an extensive recovery status post right knee replacement. Patient states that she was unaware of her surroundings and hospitalized for 1 month post surgery. Her family did state that during 1 of these episodes, she was assisted with a position change and possibly dislocated her left shoulder. Patient denies any new injury. She states her symptoms are significantly worsening over the lastfew months. She is having increased pain with using it, this does correlate with attempts to increase activity since onset of symptoms in February. Patient states she has some degree of pain at all times, rates it severe and 8-10 out of 10 at the worst. Is painful to touch and popping, patient statesthe pain is worse with prolonged standing or changing positions. It is improved with rest and as needed ibuprofen. She feels like the joint is unstable, popping sensations and she cannot use her leftarm as she could previously. Patient denies any prior treatments for this or similar episodes in the past. Patient is right-hand dominant. Patient states she does have some restrictions on arm use secondary to her history of scleroderma and Polymyositis. She is accompanied by her sister for today'svisit that does assist with some history gathering patient has assistance of her sister and daughter at home for ADLs. Patient also reports she has had cervical spine issues and has received cortisone injections in the past, she is overdue for an additional series however she wants improvement of the left shoulder prior to seeking eval for retreatment of the neck pain and limited range of motion.[facility] [address] Work Phone: [phone]) [phone] History of Present illness Narrative* Patient was seen today on a follow-up visit. I reviewed with her her high- resolution CT [facility] done on 01/06/2021 which shows primarily left lower lobe honeycomb changes and mild changes in the right lower lobe with a small area in the right upper lobe in a subpleural region. These changeson the x-ray would be consistent with her history of interstitial lung disease related to her scleroderma and polymyositis. There is not appear to be a significant change in her interstitial lung disease versus the previous scan from 12/26/2017. She reports to me that she is going to be seeing a physician in [place] to evaluate her for right knee replacement. She also has a scheduled appointment next week with anesthesia. Patient does have a history of prior tracheostomy. * She has mild cough with clear sputum production. She does have dyspnea at a slow walk but not at rest. Her pulmonary function test done on 12/11/2020 does show severe restrictive disease with some small airway obstructive disease and there was some improvement in the small airways post bronchodilator. There is also improvement in airway resistance postbronchodilator, which may indicate that she would respond to bronchodilators. -Pulmonary Medicine-[place] [address] DO Work Phone: [phone] History of Present illness Narrative* Here for preop PE * Having right knee replacement with Dr. Barnes. Originally scheduled at [facility] for 12/16/20, but [facility] not wanting to do her at their facility. Will need to have done at [facility]. * Sees other specialists: * Dr. Prajapati in [place] for pain management for neck and head. Saw the ETL LEAD Art 12/04/20. Currently on Percocet for her worsening neck. Has been on this since 12/04/20. Has appointment with Dr Prajapati 12/29/20 for neck injection. * Elizabeth [place] CNP removed skin lesion left chest about 1 month ago. Unsure if it was a cancer. * Has seen Dr. Rey Fuentes in the past for her autoimmune * Has seen a tie presser in the past, but not recently. Asthma has been a little worse this past month with increased allergies. * STOPBANG score 2, low risk * Revised Cardiac Index acceptable at 0.4 -[facility] Work Phone: [phone]) [phone] History of Present illness Narrative* Here for preop PE * Having right knee replacement with Dr. Barnes. Originally scheduled at [facility] for 12/16/20, but [facility] not wanting to do her at their facility. Will need to have done at [facility]. * Sees other specialists: * Dr. Prajapati in [facility] for pain management for neck and head. Saw the ETL LEAD Art 12/04/20. Currently on Percocet for her worsening neck. Has been on this since 12/04/20. Has appointment with Dr Prajapati 12/29/20 for neck injection. * Elizabeth [place] CNP removed skin lesion left chest about 1 month ago. Unsure if it was a cancer. * Has seen Dr. Rey Fuentes in the past for her autoimmune * Has seen a tie presser in the past, but not recently. Asthma has been a little worse this past month with increased allergies. * STOPBANG score 2, low risk * Revised Cardiac Index acceptable at 0.4 -[facility] Work Phone: [phone]) [phone] History of Present illness Narrative* Here for preop PE * Having right knee replacement with Dr. Barnes. Originally scheduled at [facility] for 12/16/20, but [facility] not wanting to do her at their facility. Will need to have done at [facility]. * Sees other specialists: * Dr. Prajapati in [place] for pain management for neck and head. Saw the ETL LEAD Art 12/04/20. Currently on Percocet for her worsening neck. Has been on this since 12/04/20. Has appointment with Dr Prajapati 12/29/20 for neck injection. * Elizabeth [place] DIESEL ENGINE MECHANIC removed skin lesion left chest about 1 month ago. Unsure if it was a cancer. * Has seen Dr. Rey Fuentes in the past for her autoimmune * Has seen a tie presser in the past, but not recently. Asthma has been a little worse this past month with increased allergies. * STOPBANG score 2, low risk * Revised Cardiac Index acceptable at 0.4 [facility] Work Phone: [phone]) [phone] History of Present illness Narrative* Here for preop PE * Having right knee replacement with Dr. Barnes. Originally scheduled at [facility] for 12/16/20, but [facility] not wanting to do her at their facility. Will need to have done at [facility]. * Sees other specialists: * Dr. Prajapati in [facility] for pain management for neck and head. Saw the ETL LEAD Art 12/04/20. Currently on Percocet for her worsening neck. Has been on this since 12/04/20. Has appointment with Dr Prajapati 12/29/20 for neck injection. * Elizabeth [place] DIESEL ENGINE MECHANIC removed skin lesion left chest about 1 month ago. Unsure if it was a cancer. * Has seen Dr. Rey Fuentes in the past for her autoimmune * Has seen a tie presser in the past, but not recently. Asthma has been a little worse this past month with increased allergies. * STOPBANG score 2, low risk * Revised Cardiac Index acceptable at 0.4 [facility] Work Phone: chief complaint Narrative - Reported* TENNILLE ORTIZ is here for an initial evaluation. * Reason for Visit: Asthma, Abnormal lung sounds, Preop clearance for right TKR per Dr. Barnes. * Appointment requested by: Abelardo Abraham. [place] [address] DO Work Phone: chief complaint Narrative - Reported* TENNILLE ROTIZ is here for an initial evaluation. * Reason for Visit: Asthma, Abnormal lung sounds, Preop clearance for right TKR per Dr. Barnes. * Appointment requested by: Abelardo Abraham. [place] [address] DO Work Phone: chief complaint Narrative - Reported* Pt states she has not received COVID-19 vaccine. * TENNILLE ORTIZ is here for a follow-up visit. * Reason for Visit: ILD. * Appointment requested by: Abelardo Abrhaam. [place] [address] DO Work Phone: chief complaint Narrative - Reported* Pt states she has not received COVID-19 vaccine. * TENNILLE ORTIZ is here for a follow-up visit. * Reason for Visit: ILD. * Appointment requested by: Abelardo Abraham. [place] [address] DO Work Phone: Discharge summary Author Lukasz Munoz [facility] April 23, 2023 10:40am Note Date/Time April 23, 2023 9 :17am [facility] Medical Records Department [address] [place] [id number] Emergency Department Summary 04/23/23 MR#: [id number] Acct: [id number] Name: TENNILLE ORTIZ Rep #:[id number] : 1965 58 From: Lukasz Munoz MD PCP: EVARISTO DU Status:[facility] ER Location: ED HPI History of Present Illness Chief Complaint: General Illness Narrative Narrative: Patient presents with myalgias, weakness subjective fevers and a slight cough. She feels like last time she got COVID. Influenza vaccine 3 days ago. She has no dyspnea. She does have a complicated history of restrictive lung disease andpolymyositis. [facility] Medical History Anxiety Arthritis Asthma Broken teeth Depression Difficulty swallowing High cholesterol History of amputation of finger History of CHF (congestive heart failure) History of echocardiogram History of steroid therapy History of stress test Hypoglycemia Neck pain Non-smoker Polymyositis Restless legs Restrictive lung disease Scleroderma Wears glasses Home Medications Ropinirole Hcl [Requip] 0.5 mg PO QHS RLS 09/23/13 [History Last Taken 02/04/21] albuterol sulfate 2.5 mg/3 mL (0.083 %) solution for nebulization 2.5 mg inhalation Q6HWA.RT asthma 09/23/13 [History Last Taken 02/04/21] albuterol sulfate 90 mcg/actuation aerosol inhaler (Ventolin HFA) 1 - 2 puff inhalation Q6H PRN PRN Shortness Of Breath 09/23/13 [History Last Taken 02/04/21] oresuesk-zuf-tlzaq acid 0.4 mg-lycopene 300 mcg-lutein 250 mcg tablet (Centrum Silver) 1 ea PO DAILY 09/23/13 [History Last Taken 02/04/21] prednisone 5 mg tablet 4 mg PO DAILY 09/23/13 [History Last Taken 02/04/21] atorvastatin 10 mg tablet 10 mg PO DAILY cholesterol 01/12/21 [History Last Taken 02/04/21] baclofen 10 mg tablet 10 mg PO TID PRN PRN neck pain 01/12/21 [History Last Taken 02/04/21] cholecalciferol (vitamin D3) 100 mcg (4,000 unit) capsule 100 mcg PO QODAY supplement 01/12/21 [History Last Taken 02/04/21] levothyroxine 100 mcg tablet 100 mcg PO DAILY thyroid 01/12/21 [History Last Taken 02/04/21] meloxicam 15 mg tablet 15 mg PO DAILY neck pain 01/12/21 [History Last Taken 01/30/21] phenylephrine 5 mg-dextromethorphan 10 mg-acetaminophen 325 mg capsule (Mucinex Sinus-Max Severe Congestion-Pain(DM)) 1 cap PO DAILY congestion 01/12/21 [History Last Taken 02/04/21] sertraline 50 mg tablet (Zoloft) 50 mg PO BID mood 01/12/21 [History Last Taken 02/04/21] trazodone 50 mg tablet 50 mg PO QHS PRN depression 01/12/21 [History Last Taken 02/04/21] Arthrozene 1 cap PO/SL DAILY 01/28/21 [History Last Taken 02/04/21] fluticasone furoate 100 mcg-vilanterol 25 mcg/dose inhalation powder (Breo Ellipta) 1 inh inhalation DAILY 01/28/21 [History Last Taken 02/04/21] gabapentin 100 mg tablet 100 mg PO TID 01/28/21 [History Last Taken 02/04/21] acetaminophen 500 mg tablet 1,000 mg (2 x 500 mg) PO TID #100 tabs 02/06/21 [Rx Last Taken Unknown] oxycodone 5 mg tablet 5 - 10 mg (1 - 2 x 5 mg) PO Q4H PRN PRN Pain Score 4-10 4 days #36 tabs 02/06/21 [Rx Last Taken Unknown] rivaroxaban 10 mg tablet (Xarelto) 10 mg PO DAILY@0600 #12 tabs 02/06/21 [Rx Last Taken Unknown] sennosides 8.6 mg-docusate sodium 50 mg tablet (Stool Softener-Stimulant Laxative) 2 tab PO BID #10 tabs 02/06/21 [Rx Last Taken Unknown] Allergy/AdvReac Type Severity Reaction Status Date / Time aspirin Allergy Unknown Verified 04/23/23 08:54 ceftazidime pentahydrate Allergy Hives Verified 04/23/23 08:54 [From Fortaz] clindamycin Allergy Rash Verified 04/23/23 08:54 Penicillins Allergy Hives Verified 04/23/23 08:54 povidone-iodine Allergy Itching Verified 04/23/23 08:54 [From Betadine] soap [From Betadine] Allergy Itching Verified 04/23/23 08:54 erythromycin base AdvReac Diarrhea Verified 04/23/23 08:54 [Erythromycin Base] Surgical History History of hysterectomy History of right hip replacement History of tubal ligation History of vascular surgery Status post right knee replacement Social History Smoking Status: Never smoker ROS ROS ED ROS Narrative Past medical history: Reviewed Medications: Reviewed Social history: Noncontributory Review of systems: All systems negative except as indicated General: Some subjective fevers, she feels cold currently. Eyes: No visual changes ENT: Some congestion Neck: No neck pain Cardiovascular: No chest pain Respiratory: No shortness of breath or cough Gastrointestinal: No abdominal pain, nausea vomiting or diarrhea Genitourinary: No dysuria Musculoskeletal: Neurolyse myalgias Skin: No rash Neurological: No memory loss, confusion or any focal weakness EXAM Physical Exam Narrative Exam Narrative: Physical exam General: Patient appears relatively comfortable. Head: Normocephalic, Atraumatic Eyes: Conjunctiva not pale ENT: Moist mucous membranes Neck: Supple, Nontender, No lymphadenopathy Cardiovascular: Regular rate, Regular rhythm Respiratory: No distress, speaks in full sentences. Shallow inspiration but shetells me this is chronic. No wheezing. Abdomen: Soft, Nontender, Nondistended Back: Nontender, Normal Inspection. Negative for: CVA tenderness Extremities: Nontender, chronic contractures and missing digits no current infection. Skin: Normal color, No rash Neurological: Alert, Normal Strength, Normal Sensation Const Vital Signs: 04/23/23 08:54 04/23/23 10:05 Temperature 97.6 F L 97.8 F Temperature Source Temporal Temporal Pulse Rate 80 Respiratory Rate 16 Blood Pressure 100/70 Blood Pressure Mean 80 Oxygen Delivery Method Room Air MDM MDM MDM Narrative Medical decision making narrative: Patient is found to have influenza B. Otherwise she has an unremarkable work-up, she has no signs of a pneumonia, lungs are clear, chest x-ray is normal. She is given IV fluids and Toradol and she improved. There is no evidence of sepsis. I believe she can safely be discharged home. If anything changes she is to return. I talked to her I do not recommend remdesivir or any antivirals for her. She agrees with the plan she will be discharged in the care of family members Chest x-ray read by me as normal Lab Data Labs: Laboratory Results - last 24 hr 04/23/23 09:54 WBC 11.6 H RBC 3.81 L Hgb 11.2 L Hct 35.9 L MCV 94.2 MCH 29.4 MCHC 31.2 L RDW Std Deviation 51.1 H RDW Coeff of Himanshu 14.7 H Plt Count 190 MPV 10.9 Immature Gran % (Auto) 0.500 Neut % (Auto) 87.5 H Lymph % (Auto) 5.6 L [place] % (Auto) 5.6 Eos % (Auto) 0.3 Baso % (Auto) 0.5 Absolute Neuts (auto) 10.2 H Absolute Lymphs (auto) 0.65 L Nucleated RBC % 0 Sodium 137 Potassium 4.0 Chloride 101 Carbon Dioxide 31.0 Anion Gap 5 BUN 12 Creatinine 0.38 L Est GFR (MDRD) Af Amer 223 Est GFR (MDRD) Non-Af 184 BUN/Creatinine Ratio 31.6 H Glucose 100 Calcium 8.9 Total Bilirubin 0.80 AST 15 ALT 22 Alkaline Phosphatase 77 Total Protein 7.3 Albumin 3.1 L Globulin 4.2 Albumin/Globulin Ratio 0.7 L Radiography Diagnostic Testing: Clinical Impression(s) from Imaging Studies Chest X-Ray 04/23/23 09:14 IMPRESSION: Mild left lower lobe fibrosis or atelectasis. Electronically Signed: Светлана Daley MD at 10:24 EDT Reading Location ID and State: [facility] / [place] Tel , Service support , Discharge Plan Triage Chief Complaint: General Illness ED Provider: Lukasz Munoz Dx/Rx/DC Orders Clinical Impression: Myalgia, Influenza Instructions: ED Influenza (Adult) Prescriptions: No Action albuterol sulfate 2.5 MG/3 ML solution for nebulization 2.5 mg inhalation Q6HWA.RT prednisone 5 MG tablet 4 mg PO DAILY albuterol sulfate [Ventolin HFA] 1 INHALER inhaler 1 - 2 puff inhalation Q6H PRN PRN (Reason: Shortness Of Breath) Centrum Silver 1 EACH tablet 1 ea PO DAILY Ropinirole Hcl [Requip] 1 MG tablet 0.5 mg PO QHS Patient Comments: 0.25 mg up to 1 mg trazodone 50 mg Tablet 50 mg PO QHS PRN (Reason: depression) atorvastatin 10 mg Tablet 10 mg PO DAILY meloxicam 15 mg tablet 15 mg PO DAILY Patient Comments: TAKE 1 TABLET BY MOUTH DAILY WITH FOOD levothyroxine 100 mcg Tablet 100 mcg PO DAILY baclofen 10 mg tablet 10 mg PO TID PRN PRN (Reason: neck pain) Patient Comments: TAKE 1 TABLET BY MOUTH EVERY 8 HOURS NEEDED FOR PAIN sertraline [Zoloft] 50 mg Tablet 50 mg PO BID Mucinex Sinus-Max Cng-Pain(DM) 5-10-325 mg Capsule 1 cap PO DAILY cholecalciferol (vitamin D3) 100 mcg (4,000 unit) Capsule 100 mcg PO QODAY Arthrozene 1 cap PO/SL DAILY gabapentin 100 mg Tablet 100 mg PO TID Breo Ellipta 100-25 mcg/dose Blister With Device 1 inh INHALATION DAILY acetaminophen 500 mg Tablet 1,000 mg PO TID Qty: 100 0RF Rx Instructions: Do not take more than 3000 mg Tylenol in a 24-hour period. oxycodone 5 mg Tablet 5 - 10 mg PO Q4H PRN PRN (Reason: Pain Score 4-10) 4 Days Qty: 36 0RF Xarelto 10 mg Tablet 10 mg PO DAILY@0600 Qty: 12 0RF Rx Instructions: Take 1 tablet daily for 2 weeks postoperatively for DVT prophylaxis sennosides-docusate sodium [Stool Softener-Stimulant Laxat] 8.6-50 mg Tablet 2 tab PO BID Qty: 10 0RF Rx Instructions: Take until first bowel movement, then as needed Primary Care Provider: EVARISTO DU Referrals: Sharon Abraham ETL LEAD, ETL LEAD-C [Non-Staff] - 3-5 Days Disposition Disposition: Home, Self Care What to do if you have Problems For any increased pain, shortness of breath, bleeding, nausea or vomiting, chestpain, or any unexpected problems, contact your Primary Care Provider. Call [facility] ([phone]) or report to the closest Emergency Room. Call 911 if necessary. 04/23/23 1040 <Electronically signed by Lukasz Munoz MD> Cosigner Signature (if applicable): CC: EVARISTO DU ~ Signed [facility] Work Phone: Evaluation noteN/ADept. of Dermatology Evaluation note* Diagnosis Neck pain- Primary Cervicalgia Arthropathy of cervical facet joint Cervical spondylosis without myelopathy Osteoporosis without current pathological fracture, unspecified osteoporosis type Polymyositis (HCC) [facility] current use of systemic steroids- Primary Encounter for long-term (current) use of steroids Osteoporosis without current pathological fracture, unspecified osteoporosis type [facility] Diagnosis Other fracture of unspecified thoracic vertebra, initial encounter for closed fracture (HCC) [facility] [place] [facility]* Diagnosis Age-related osteoporosis without current pathological fracture- Primary Senile osteoporosis Fracture of vertebra due to osteoporosis, initial encounter ([facility]) Current chronic use of systemic steroids Systemic sclerosis; CREST Systemic sclerosis Polymyositis (HCC) Polymyositis [facility] [place] [facility]* Diagnosis Occipital neuralgia of right side- Primary Arthropathy of cervical facet joint Cervical spondylosis without myelopathy Occipital neuralgia of right side [facility] [place] [facility]* Diagnosis Age-related osteoporosis without current pathological fracture- Primary Senile osteoporosis Occipital neuralgia of right side [facility] [place] [facility]* Diagnosis Neck pain- Primary Cervicalgia Occipital neuralgia of right side [facility] [place] [facility] Diagnosis Age-related osteoporosis without current pathological fracture- Primary Senile osteoporosis Occipital neuralgia of right side [facility] [place] [facility]* Diagnosis Systemic sclerosis (HCC) Systemic sclerosis Polymyositis (HCC) Polymyositis Dyspnea, unspecified type [facility] [place] noteNo assessment information availableW[facility] Work Phone: Evaluation note* Diagnosis Age-related osteoporosis without current pathological fracture- Primary Senile osteoporosis [facility] [place] [facility]* Diagnosis Neck pain, chronic- Primary Cervicalgia Arthropathy of cervical facet joint Cervical spondylosis without myelopathy Cervicalgia Abnormal findings on diagnostic imaging of other parts of musculoskeletal system [facility] [place] [facility]* Diagnosis Osteoporosis without current pathological fracture, unspecified osteoporosis type Arthropathy of cervical facet joint Cervical spondylosis without myelopathy Neck pain Cervicalgia Other fracture of unspecified thoracic vertebra, initial encounter for closed fracture (HCC) [facility] [place] [facility]* Diagnosis Osteoporosis without current pathological fracture, unspecified osteoporosis type Arthropathy of cervical facet joint Cervical spondylosis without myelopathy Neck pain Cervicalgia Polymyositis (HCC) Polymyositis [facility] [place] [facility]* Diagnosis Cervicalgia [facility] [place] [facility]* Diagnosis Age-related osteoporosis without current pathological fracture- Primary Senile osteoporosis [facility] Diagnosis Routine general medical examination at health care facility- Primary Routine general medical examination at a health care facility Screening for cardiovascular condition Screening for other and unspecified cardiovascular conditions Encounter for screening mammogram for breast cancer Multiple sclerosis (CMS/HCC) Multiple sclerosis Chronic bronchitis, unspecified chronic bronchitis type (CMS/HCC) Hypothyroidism, unspecified type Protein-calorie malnutrition, unspecified severity (CMS/HCC) Mixed hyperlipidemia documented in this encounter [facility] Work Phone: [phone] note* Diagnosis Pain in joint of right shoulder- Primary documented in this encounter [facility] Work Phone: [phone] note* Diagnosis Biceps tendonitis on right- Primary documented in this encounter [facility] Work Phone: [phone] note* Diagnosis Occipital neuralgia of right side- Primary Arthropathy of cervical facet joint Cervical spondylosis without myelopathy Occipital neuralgia of right side [facility] Diagnosis Age-related osteoporosis without current pathological fracture- Primary Senile osteoporosis Occipital neuralgia of right side [facility] Diagnosis Right forearm cellulitis- Primary Pain in right arm documented in this encounter [facility] Work Phone: [phone] note* Diagnosis Right forearm cellulitis documented in this encounter [facility] Work Phone: [phone] note* Diagnosis Biceps tendonitis on right documented in this encounter [facility] Work Phone: [phone] note* Diagnosis Right forearm cellulitis- Primary Biceps tendonitis on right documented in this encounter [facility] Work Phone: [phone] note* Diagnosis Inflammatory disorder of upper extremity- Primary documented in this encounter [facility] Work Phone: [phone] note* Diagnosis Age-related osteoporosis without current pathological fracture- Primary Senile osteoporosis [facility] [place] [facility]* Diagnosis Systemic scleroderma (HCC)- Primary Dyspnea on exertion Other dyspnea and respiratory abnormality Protein-calorie malnutrition, unspecified severity (HCC) Coagulation defect, unspecified ([facility]) Biceps tendonitis on right [facility] Diagnosis ILD (interstitial lung disease) ([facility])- Primary 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) Systemic sclerosis Pulmonary aspiration of gastric contents, subsequent encounter [facility] Diagnosis Age-related osteoporosis without current pathological fracture- Primary Senile osteoporosis [facility] Pain Generalized pain [facility] Diagnosis Dyspnea on exertion Other dyspnea and respiratory abnormality Systemic scleroderma (HCC) [facility] Diagnosis Decreased range of motion of right shoulder- Primary Other symptoms referable to shoulder joint Biceps tendonitis on right Primary osteoarthritis of right shoulder Primary localized osteoarthrosis, shoulder region Restrictive lung disease, Acute Productive Cough Other diseases of lung, not elsewhere classified Muscular deconditioning Muscular wasting and disuse atrophy, not elsewhere classified [facility] Diagnosis Episode of recurrent major depressive disorder, unspecified depression episode severity (HCC)- Primary Hypothyroidism, unspecified type Ischemia of digits of hand Unspecified circulatory system disorder Polymyositis (HCC) Polymyositis Restless leg syndrome Restless legs syndrome (RLS) Systemic sclerosis (HCC) Systemic sclerosis Shortness of breath Raynaud's disease without gangrene Systemic sclerosis; CREST Systemic sclerosis Polymyositis (HCC) Polymyositis Restless leg syndrome Restless legs syndrome (RLS) Hypothyroidism Unspecified hypothyroidism Healthcare maintenance Routine general medical examination at a health care facility Ischemia of digits of hand Unspecified circulatory system disorder Depression Depressive disorder, not elsewhere classified Exacerbation of asthma Systemic scleroderma (HCC)- Primary [facility] [place] [facility]* Diagnosis Episode of recurrent major depressive disorder, unspecified depression episode severity (HCC)- Primary Hypothyroidism, unspecified type Ischemia of digits of hand Unspecified circulatory system disorder Polymyositis (HCC) Polymyositis Restless leg syndrome Restless legs syndrome (RLS) Systemic sclerosis (HCC) Systemic sclerosis Shortness of breath Raynaud's disease without gangrene Systemic sclerosis; CREST Systemic sclerosis Polymyositis (HCC) Polymyositis Restless leg syndrome Restless legs syndrome (RLS) Hypothyroidism Unspecified hypothyroidism Healthcare maintenance Routine general medical examination at a health care facility Ischemia of digits of hand Unspecified circulatory system disorder Depression Depressive disorder, not elsewhere classified Exacerbation of asthma Glenohumeral arthritis, right- Primary [facility] [place] [facility]* Diagnosis Episode of recurrent major depressive disorder, unspecified depression episode severity (HCC)- Primary Hypothyroidism, unspecified type Ischemia of digits of hand Unspecified circulatory system disorder Polymyositis (HCC) Polymyositis Restless leg syndrome Restless legs syndrome (RLS) Systemic sclerosis (HCC) Systemic sclerosis Shortness of breath Raynaud's disease without gangrene Systemic sclerosis; CREST Systemic sclerosis Polymyositis (HCC) Polymyositis Restless leg syndrome Restless legs syndrome (RLS) Hypothyroidism Unspecified hypothyroidism Healthcare maintenance Routine general medical examination at a health care facility Ischemia of digits of hand Unspecified circulatory system disorder Depression Depressive disorder, not elsewhere classified Exacerbation of asthma Age-related osteoporosis without current pathological fracture- Primary Senile osteoporosis Systemic sclerosis (HCC) Systemic sclerosis Skin lesion Unspecified disorder of skin and subcutaneous tissue Raynaud's disease without gangrene Restrictive lung disease, Acute Productive Cough Other diseases of lung, not elsewhere classified Polymyositis (HCC) Polymyositis [facility] [place] [facility]* Diagnosis Episode of recurrent major depressive disorder, unspecified depression episode severity (HCC)- Primary Hypothyroidism, unspecified type Ischemia of digits of hand Unspecified circulatory system disorder Polymyositis (HCC) Polymyositis Restless leg syndrome Restless legs syndrome (RLS) Systemic sclerosis (HCC) Systemic sclerosis Shortness of breath Raynaud's disease without gangrene Systemic sclerosis; CREST Systemic sclerosis Polymyositis (HCC) Polymyositis Restless leg syndrome Restless legs syndrome (RLS) Hypothyroidism Unspecified hypothyroidism Healthcare maintenance Routine general medical examination at a health care facility Ischemia of digits of hand Unspecified circulatory system disorder Depression Depressive disorder, not elsewhere classified Exacerbation of asthma ILD (interstitial lung disease) ([facility]) Postinflammatory pulmonary fibrosis [facility] [place] [facility]* Diagnosis Episode of recurrent major depressive disorder, unspecified depression episode severity (HCC)- Primary Hypothyroidism, unspecified type Ischemia of digits of hand Unspecified circulatory system disorder Polymyositis (HCC) Polymyositis Restless leg syndrome Restless legs syndrome (RLS) Systemic sclerosis (HCC) Systemic sclerosis Shortness of breath Raynaud's disease without gangrene Systemic sclerosis; CREST Systemic sclerosis Polymyositis (HCC) Polymyositis Restless leg syndrome Restless legs syndrome (RLS) Hypothyroidism Unspecified hypothyroidism Healthcare maintenance Routine general medical examination at a health care facility Ischemia of digits of hand Unspecified circulatory system disorder Depression Depressive disorder, not elsewhere classified Exacerbation of asthma ILD (interstitial lung disease) (HCC)- Primary 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) Systemic sclerosis Pulmonary aspiration of gastric contents, subsequent encounter [facility] Diagnosis Biceps tendonitis on right- Primary Biceps tendonitis on right- Primary Cellulitis of right forearm- Primary Biceps tendonitis on right Scleroderma (Multi)- Primary Systemic sclerosis Restless leg syndrome Restless legs syndrome (RLS) documented in this encounter [facility] Work Phone: Evaluation note* Diagnosis Episode of recurrent major depressive disorder, unspecified depression episode severity (HCC)- Primary Hypothyroidism, unspecified type Ischemia of digits of hand Unspecified circulatory system disorder Polymyositis (HCC) Polymyositis Restless leg syndrome Restless legs syndrome (RLS) Systemic sclerosis (HCC) Systemic sclerosis Shortness of breath Raynaud's disease without gangrene Systemic sclerosis; CREST Systemic sclerosis Polymyositis (HCC) Polymyositis Restless leg syndrome Restless legs syndrome (RLS) Hypothyroidism Unspecified hypothyroidism Healthcare maintenance Routine general medical examination at a health care facility Ischemia of digits of hand Unspecified circulatory system disorder Depression Depressive disorder, not elsewhere classified Exacerbation of asthma Glenohumeral arthritis, right- Primary Pre-op exam Preoperative examination, unspecified [facility] Diagnosis Biceps tendonitis on right- Primary Biceps tendonitis on right- Primary Cellulitis of right forearm- Primary Biceps tendonitis on right Restless leg syndrome- Primary Restless legs syndrome (RLS) Anxiety and depression Protein-calorie malnutrition, unspecified severity (Multi) Colon cancer screening Special screening for malignant neoplasms, colon documented in this encounter [facility] Work Phone: Evaluation note* Diagnosis Cervical vertebral fusion- Primary Klippel-Feil syndrome Degenerative disc disease, cervical Chronic head pain Neck pain Cervicalgia Hypothyroidism, unspecified type Mixed hyperlipidemia documented in this encounter [facility] Work Phone: Evaluation note* Diagnosis Episode of recurrent major depressive disorder, unspecified depression episode severity (HCC)- Primary Hypothyroidism, unspecified type Ischemia of digits of hand Unspecified circulatory system disorder Polymyositis (HCC) Polymyositis Restless leg syndrome Restless legs syndrome (RLS) Systemic sclerosis (HCC) Systemic sclerosis Shortness of breath Raynaud's disease without gangrene Systemic sclerosis; CREST Systemic sclerosis Restless leg syndrome Restless legs syndrome (RLS) Hypothyroidism Unspecified hypothyroidism Healthcare maintenance Routine general medical examination at a health care facility Ischemia of digits of hand Unspecified circulatory system disorder Depression Depressive disorder, not elsewhere classified Pre-operative examination- Primary Preoperative examination, unspecified Systemic sclerosis; CREST Systemic sclerosis Glenohumeral arthritis, right Pre-op exam Preoperative examination, unspecified Restrictive lung disease, Acute Productive Cough Other diseases of lung, not elsewhere classified Sleep apnea, unspecified type Protein-calorie malnutrition, unspecified severity (HCC) Hypothyroidism, unspecified type Age-related osteoporosis without current pathological fracture Senile osteoporosis Polymyositis (HCC) Polymyositis Ischemia of digits of hand Unspecified circulatory system disorder Episode of recurrent major depressive disorder, unspecified depression episode severity (HCC) Occipital neuralgia of right side Acquired fusion of cervical spine Other unspecified back disorder Restless leg syndrome Restless legs syndrome (RLS) Palpitations Raynaud's disease without gangrene Urine, incontinence, stress female Female stress incontinence Muscular deconditioning Muscular wasting and disuse atrophy, not elsewhere classified Dysphagia, unspecified type Glenohumeral arthritis, right Pre-op exam Preoperative examination, unspecified * Assessment & Plan Note - Jacqueline Peck APRN.CNP - 06/18/2024 12:00 PM EST Associated Problem(s): Dysphagia Assessment: as noted above she has chronic aspiration, pulmonary recommended swallowing evaluation * Assessment & Plan Note - Jacqueline Peck APRN.CNP - 06/18/2024 10:43 AM EST Associated Problem(s): Muscular deconditioning Assessment: chronic * Assessment & Plan Note - Jacqueline Peck APRN.CNP - 06/18/2024 10:38 AM EST Associated Problem(s): Urine, incontinence, stress female Assessment: hx, no current tx * Assessment & Plan Note - Jacqueline Peck APRN.CNP - 06/18/2024 10:38 AM EST Associated Problem(s): Raynaud's syndrome Assessment: hx ischemia digits 2/2 scleroderma * Assessment & Plan Note - Jacqueline Peck APRN.CNP - 06/18/2024 10:37 AM EST Associated Problem(s): Palpitations Assessment: no current complaints or symptoms, dx dates back to 2012 when pt had a cardiac work up * Assessment & Plan Note - Jacqueline Peck APRN.CNP - 06/18/2024 10:36 AM EST Associated Problem(s): Restless leg syndrome Assessment: controlled on rx * Assessment & Plan Note - Jacqueline Peck APRN.CNP - 06/18/2024 10:35 AM EST Associated Problem(s): Acquired fusion of cervical spine Assessment: -DECREASED CROM-Cervical Spine SPECT revealed significant tracer uptake in the bilateral superior facet joints of C1. Patient was informed that her C1 facet disease will likely lead to autofusion * Assessment & Plan Note - Jacqueline Peck APRN.CNP - 06/18/2024 10:34 AM EST Associated Problem(s): Occipital neuralgia of right side Assessment: receiving injections, following pain management * Assessment & Plan Note - Jacqueline Peck APRN.RICH - 06/18/2024 10:29 AM EST Associated Problem(s): Depression Assessment: stable on rx per pt, denies SI/HI, 2/2 chronic medical conditions * Assessment & Plan Note - Jacqueline Peck APRN.CNP - 06/18/2024 10:28 AM EST Associated Problem(s): Ischemia of digits of hand Assessment: s/p Alprostadil infusion 2017, no open ulcerations/scabs noted on today's exam * Assessment & Plan Note - Jacqueline Peck APRN.CNP - 06/18/2024 10:26 AM EST Associated Problem(s): Polymyositis (HCC) Assessment: general weakness is her normal baseline per pt and daughter, daily Prednisone. Myositisdiagnosis in 1988; last flare 1998 per epic * Assessment & Plan Note - Jacqueline Peck APRN.CNP - 06/18/2024 10:24 AM EST Associated Problem(s): Age-related osteoporosis without current pathological fracture Assessment: Fracture history: vertebral fracture, R tibial plateau fracture and L shoulder. H/o Reclast once in 2016 then lost to follow-up. Evenity for 1 year in [id number] followed by 1 month of Reclast in January 2024, following rheumatology * Assessment & Plan Note - Jacqueline Peck APRN.CNP - 06/18/2024 10:21 AM EST Associated Problem(s): Hypothyroidism Assessment: stable on rx, last TSH 2.77 06/06/2023 in [facility] * Assessment & Plan Note - Jacqueline Peck APRN.RICH - 06/18/2024 10:20 AM EST Associated Problem(s): Protein-calorie malnutrition (HCC) Assessment: Body mass index is 16.92 kg/m . Pt states 2/2 small mouth opening, she states she is eating and drinking per her normal * Assessment & Plan Note - Jacqueline Peck APRN.CNP - 06/18/2024 10:17 AM EST Associated Problem(s): Sleep apnea Assessment: mild per 2011 PSG, pt denies dx or CPAP use * Assessment & Plan Note - Jacqueline Peck APRN.CNP - 06/18/2024 10:16 AM EST Associated Problem(s): Restrictive lung disease, Severe, Acute Productive Cough Assessment: following pulmonary, rx as needed, pulmonary recently recommended swallowing study 2/2 chronic aspiration per recent chest CT, pt hesitant to do so per below documentation. Chart sent to anesthesia for review. 05/16/2024 Valeria Pittman PA-C, [facility] Pulmonary ASSESSMENT/PLAN: 1. ILD (interstitial lung disease) (HCC) - ICD9: 515, ICD10: J84.9 (primary diagnosis) Severe restriction on PFT, stable today. CT chest with pulmonary fibrosis in bilateral lower lobes with a slight increase in prominence of cystic changes in the left lower lobe. Findings are most consistent with chronic aspiration. Considered anti-fibrotic therapy, but most likely will not prevent the progression of disease with ongoing aspiration. Recommend swallow study and evaluation. However, patient is hesitant. 2. Systemic sclerosis with myopathy (HCC) - ICD9: 710.1, 359.6, ICD10: M34.82 Follows with rheumatology. On low-dose prednisone 3. Pulmonary aspiration of gastric contents, subsequent encounter - ICD9: V58.89, 934.9, ICD10: T17.818D See #1. Valeria Pittman PA-C * Assessment & Plan Note - Jacqueline Peck APRN.DIESEL ENGINE MECHANIC - 06/18/2024 10:13 AM EST Associated Problem(s): Systemic sclerosis; CREST Assessment: following rheumatology and pulmonary, daily Prednisone, systemic, hands are contracted,limited CROM, very small mouth opening. Chart sent to anesthesia for review. 05/16/2024 Spirometry IMPRESSION: Spirometry indicates no obstruction. The reduced FVC could indicate restriction, recommend lung volumes for definitive determination. See RT notes above which may affect results. Electronically Signed On 05-17-2024 06:24:26 EST by Murphy Bills MD [facility] Episode of recurrent major depressive disorder, unspecified depression episode severity (HCC)- Primary Hypothyroidism, unspecified type Ischemia of digits of hand Unspecified circulatory system disorder Polymyositis (HCC) Polymyositis Restless leg syndrome Restless legs syndrome (RLS) Systemic sclerosis (HCC) Systemic sclerosis Shortness of breath Raynaud's disease without gangrene Systemic sclerosis; CREST Systemic sclerosis Restless leg syndrome Restless legs syndrome (RLS) Hypothyroidism Unspecified hypothyroidism Healthcare maintenance Routine general medical examination at a health care facility Ischemia of digits of hand Unspecified circulatory system disorder Depression Depressive disorder, not elsewhere classified Pre-operative examination- Primary Preoperative examination, unspecified Systemic sclerosis; CREST Systemic sclerosis Glenohumeral arthritis, right Pre-op exam Preoperative examination, unspecified Restrictive lung disease, Acute Productive Cough Other diseases of lung, not elsewhere classified Sleep apnea, unspecified type Protein-calorie malnutrition, unspecified severity (HCC) Hypothyroidism, unspecified type Age-related osteoporosis without current pathological fracture Senile osteoporosis Polymyositis (HCC) Polymyositis Ischemia of digits of hand Unspecified circulatory system disorder Episode of recurrent major depressive disorder, unspecified depression episode severity (HCC) Occipital neuralgia of right side Acquired fusion of cervical spine Other unspecified back disorder Restless leg syndrome Restless legs syndrome (RLS) Palpitations Raynaud's disease without gangrene Urine, incontinence, stress female Female stress incontinence Muscular deconditioning Muscular wasting and disuse atrophy, not elsewhere classified Dysphagia, unspecified type Glenohumeral arthritis, right Pre-op exam Preoperative examination, unspecified Glenohumeral arthritis, right Pre-op exam Preoperative examination, unspecified [facility] Diagnosis Biceps tendonitis on right- Primary Biceps tendonitis on right- Primary Cellulitis of right forearm- Primary Biceps tendonitis on right Scleroderma (Multi)- Primary Systemic sclerosis Restless leg syndrome Restless legs syndrome (RLS) documented in this encounter [facility] Work Phone: Evaluation note* Diagnosis Episode of recurrent major depressive disorder, unspecified depression episode severity (HCC)- Primary Hypothyroidism, unspecified type Ischemia of digits of hand Unspecified circulatory system disorder Polymyositis (HCC) Polymyositis Restless leg syndrome Restless legs syndrome (RLS) Systemic sclerosis (HCC) Systemic sclerosis Shortness of breath Raynaud's disease without gangrene Pre-operative examination- Primary Preoperative examination, unspecified Systemic sclerosis; CREST Systemic sclerosis Glenohumeral arthritis, right Pre-op exam Preoperative examination, unspecified Restrictive lung disease, Acute Productive Cough Other diseases of lung, not elsewhere classified Sleep apnea, unspecified type Protein-calorie malnutrition, unspecified severity (HCC) Hypothyroidism, unspecified type Age-related osteoporosis without current pathological fracture Senile osteoporosis Polymyositis (HCC) Polymyositis Ischemia of digits of hand Unspecified circulatory system disorder Episode of recurrent major depressive disorder, unspecified depression episode severity (HCC) Occipital neuralgia of right side Acquired fusion of cervical spine Other unspecified back disorder Restless leg syndrome Restless legs syndrome (RLS) Palpitations Raynaud's disease without gangrene Urine, incontinence, stress female Female stress incontinence Muscular deconditioning Muscular wasting and disuse atrophy, not elsewhere classified Dysphagia, unspecified type ILD (interstitial lung disease) (HCC)- Primary 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) Systemic sclerosis Pulmonary aspiration of gastric contents, subsequent encounter Polymyositis (HCC) Polymyositis documented in this encounter [facility] note* Diagnosis Episode of recurrent major depressive disorder, unspecified depression episode severity (HCC)- Primary Hypothyroidism, unspecified type Ischemia of digits of hand Unspecified circulatory system disorder Polymyositis (HCC) Polymyositis Restless leg syndrome Restless legs syndrome (RLS) Systemic sclerosis (HCC) Systemic sclerosis Shortness of breath Raynaud's disease without gangrene Pre-operative examination- Primary Preoperative examination, unspecified Systemic sclerosis; CREST Systemic sclerosis Glenohumeral arthritis, right Pre-op exam Preoperative examination, unspecified Restrictive lung disease, Acute Productive Cough Other diseases of lung, not elsewhere classified Sleep apnea, unspecified type Protein-calorie malnutrition, unspecified severity (HCC) Hypothyroidism, unspecified type Age-related osteoporosis without current pathological fracture Senile osteoporosis Polymyositis (HCC) Polymyositis Ischemia of digits of hand Unspecified circulatory system disorder Episode of recurrent major depressive disorder, unspecified depression episode severity (HCC) Occipital neuralgia of right side Acquired fusion of cervical spine Other unspecified back disorder Restless leg syndrome Restless legs syndrome (RLS) Palpitations Raynaud's disease without gangrene Urine, incontinence, stress female Female stress incontinence Muscular deconditioning Muscular wasting and disuse atrophy, not elsewhere classified Dysphagia, unspecified type S/P reverse total shoulder arthroplasty, right- Primary documented in this encounter [facility] note* Diagnosis Episode of recurrent major depressive disorder, unspecified depression episode severity (HCC)- Primary Hypothyroidism, unspecified type Ischemia of digits of hand Unspecified circulatory system disorder Polymyositis (HCC) Polymyositis Restless leg syndrome Restless legs syndrome (RLS) Systemic sclerosis ([facility]) Systemic sclerosis Shortness of breath Raynaud's disease without gangrene Pre-operative examination- Primary Preoperative examination, unspecified Systemic sclerosis; CREST Systemic sclerosis Glenohumeral arthritis, right Pre-op exam Preoperative examination, unspecified Restrictive lung disease, Acute Productive Cough Other diseases of lung, not elsewhere classified Sleep apnea, unspecified type Protein-calorie malnutrition, unspecified severity (HCC) Hypothyroidism, unspecified type Age-related osteoporosis without current pathological fracture Senile osteoporosis Polymyositis (HCC) Polymyositis Ischemia of digits of hand Unspecified circulatory system disorder Episode of recurrent major depressive disorder, unspecified depression episode severity (HCC) Occipital neuralgia of right side Acquired fusion of cervical spine Other unspecified back disorder Restless leg syndrome Restless legs syndrome (RLS) Palpitations Raynaud's disease without gangrene Urine, incontinence, stress female Female stress incontinence Muscular deconditioning Muscular wasting and disuse atrophy, not elsewhere classified Dysphagia, unspecified type Glenohumeral arthritis, right Pre-op exam Preoperative examination, unspecified [facility] [place] [facility]* Diagnosis Episode of recurrent major depressive disorder, unspecified depression episode severity (HCC)- Primary Hypothyroidism, unspecified type Ischemia of digits of hand Unspecified circulatory system disorder Polymyositis (HCC) Polymyositis Restless leg syndrome Restless legs syndrome (RLS) Systemic sclerosis (HCC) Systemic sclerosis Shortness of breath Raynaud's disease without gangrene Pre-operative examination- Primary Preoperative examination, unspecified Systemic sclerosis; CREST Systemic sclerosis Glenohumeral arthritis, right Pre-op exam Preoperative examination, unspecified Restrictive lung disease, Acute Productive Cough Other diseases of lung, not elsewhere classified Sleep apnea, unspecified type Protein-calorie malnutrition, unspecified severity (HCC) Hypothyroidism, unspecified type Age-related osteoporosis without current pathological fracture Senile osteoporosis Polymyositis (HCC) Polymyositis Ischemia of digits of hand Unspecified circulatory system disorder Episode of recurrent major depressive disorder, unspecified depression episode severity (HCC) Occipital neuralgia of right side Acquired fusion of cervical spine Other unspecified back disorder Restless leg syndrome Restless legs syndrome (RLS) Palpitations Raynaud's disease without gangrene Urine, incontinence, stress female Female stress incontinence Muscular deconditioning Muscular wasting and disuse atrophy, not elsewhere classified Dysphagia, unspecified type S/P reverse total shoulder arthroplasty, right- Primary documented in this encounter [facility] [place] [facility]* Diagnosis Episode of recurrent major depressive disorder, unspecified depression episode severity (HCC)- Primary Hypothyroidism, unspecified type Ischemia of digits of hand Unspecified circulatory system disorder Polymyositis (HCC) Polymyositis Restless leg syndrome Restless legs syndrome (RLS) Systemic sclerosis (HCC) Systemic sclerosis Shortness of breath Raynaud's disease without gangrene Pre-operative examination- Primary Preoperative examination, unspecified Systemic sclerosis; CREST Systemic sclerosis Glenohumeral arthritis, right Pre-op exam Preoperative examination, unspecified Restrictive lung disease, Acute Productive Cough Other diseases of lung, not elsewhere classified Sleep apnea, unspecified type Protein-calorie malnutrition, unspecified severity (HCC) Hypothyroidism, unspecified type Age-related osteoporosis without current pathological fracture Senile osteoporosis Polymyositis (HCC) Polymyositis Ischemia of digits of hand Unspecified circulatory system disorder Episode of recurrent major depressive disorder, unspecified depression episode severity (HCC) Occipital neuralgia of right side Acquired fusion of cervical spine Other unspecified back disorder Restless leg syndrome Restless legs syndrome (RLS) Palpitations Raynaud's disease without gangrene Urine, incontinence, stress female Female stress incontinence Muscular deconditioning Muscular wasting and disuse atrophy, not elsewhere classified Dysphagia, unspecified type Acute cough- Primary Influenza due to influenza A subtype H1N1 virus with pneumonia ILD (interstitial lung disease) ([facility]) 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) Systemic sclerosis Pulmonary aspiration of gastric contents, subsequent encounter documented in this encounter [facility] [place] [facility]* Diagnosis Episode of recurrent major depressive disorder, unspecified depression episode severity (HCC)- Primary Hypothyroidism, unspecified type Ischemia of digits of hand Unspecified circulatory system disorder Polymyositis (HCC) Polymyositis Restless leg syndrome Restless legs syndrome (RLS) Systemic sclerosis (HCC) Systemic sclerosis Shortness of breath Raynaud's disease without gangrene Pre-operative examination- Primary Preoperative examination, unspecified Systemic sclerosis; CREST Systemic sclerosis Glenohumeral arthritis, right Pre-op exam Preoperative examination, unspecified Restrictive lung disease, Acute Productive Cough Other diseases of lung, not elsewhere classified Sleep apnea, unspecified type Protein-calorie malnutrition, unspecified severity (HCC) Hypothyroidism, unspecified type Age-related osteoporosis without current pathological fracture Senile osteoporosis Polymyositis (HCC) Polymyositis Ischemia of digits of hand Unspecified circulatory system disorder Episode of recurrent major depressive disorder, unspecified depression episode severity (HCC) Occipital neuralgia of right side Acquired fusion of cervical spine Other unspecified back disorder Restless leg syndrome Restless legs syndrome (RLS) Palpitations Raynaud's disease without gangrene Urine, incontinence, stress female Female stress incontinence Muscular deconditioning Muscular wasting and disuse atrophy, not elsewhere classified Dysphagia, unspecified type Acute cough documented in this encounter [facility] [place] [facility]* Diagnosis Episode of recurrent major depressive disorder, unspecified depression episode severity (HCC)- Primary Hypothyroidism, unspecified type Ischemia of digits of hand Unspecified circulatory system disorder Polymyositis (HCC) Polymyositis Restless leg syndrome Restless legs syndrome (RLS) Systemic sclerosis (HCC) Systemic sclerosis Shortness of breath Raynaud's disease without gangrene Pre-operative examination- Primary Preoperative examination, unspecified Systemic sclerosis; CREST Systemic sclerosis Glenohumeral arthritis, right Pre-op exam Preoperative examination, unspecified Restrictive lung disease, Acute Productive Cough Other diseases of lung, not elsewhere classified Sleep apnea, unspecified type Protein-calorie malnutrition, unspecified severity (HCC) Hypothyroidism, unspecified type Age-related osteoporosis without current pathological fracture Senile osteoporosis Polymyositis (HCC) Polymyositis Ischemia of digits of hand Unspecified circulatory system disorder Episode of recurrent major depressive disorder, unspecified depression episode severity (HCC) Occipital neuralgia of right side Acquired fusion of cervical spine Other unspecified back disorder Restless leg syndrome Restless legs syndrome (RLS) Palpitations Raynaud's disease without gangrene Urine, incontinence, stress female Female stress incontinence Muscular deconditioning Muscular wasting and disuse atrophy, not elsewhere classified Dysphagia, unspecified type Influenza due to influenza A subtype H1N1 virus with pneumonia- Primary Chronic hypoxemic respiratory failure (HCC) Chronic respiratory failure [facility]* Diagnosis Episode of recurrent major depressive disorder, unspecified depression episode severity (HCC)- Primary Hypothyroidism, unspecified type Ischemia of digits of hand Unspecified circulatory system disorder Polymyositis (HCC) Polymyositis Restless leg syndrome Restless legs syndrome (RLS) Systemic sclerosis (HCC) Systemic sclerosis Shortness of breath Raynaud's disease without gangrene Pre-operative examination- Primary Preoperative examination, unspecified Systemic sclerosis; CREST Systemic sclerosis Glenohumeral arthritis, right Pre-op exam Preoperative examination, unspecified Restrictive lung disease, Acute Productive Cough Other diseases of lung, not elsewhere classified Sleep apnea, unspecified type Protein-calorie malnutrition, unspecified severity (HCC) Hypothyroidism, unspecified type Age-related osteoporosis without current pathological fracture Senile osteoporosis Polymyositis (HCC) Polymyositis Ischemia of digits of hand Unspecified circulatory system disorder Episode of recurrent major depressive disorder, unspecified depression episode severity (HCC) Occipital neuralgia of right side Acquired fusion of cervical spine Other unspecified back disorder Restless leg syndrome Restless legs syndrome (RLS) Palpitations Raynaud's disease without gangrene Urine, incontinence, stress female Female stress incontinence Muscular deconditioning Muscular wasting and disuse atrophy, not elsewhere classified Dysphagia, unspecified type Influenza due to influenza A subtype H1N1 virus with pneumonia Chronic hypoxemic respiratory failure (HCC) Chronic respiratory failure documented in this encounter [facility] note* Diagnosis Episode of recurrent major depressive disorder, unspecified depression episode severity (HCC)- Primary Hypothyroidism, unspecified type Ischemia of digits of hand Unspecified circulatory system disorder Polymyositis (HCC) Polymyositis Restless leg syndrome Restless legs syndrome (RLS) Systemic sclerosis (HCC) Systemic sclerosis Shortness of breath Raynaud's disease without gangrene Pre-operative examination- Primary Preoperative examination, unspecified Systemic sclerosis; CREST Systemic sclerosis Glenohumeral arthritis, right Pre-op exam Preoperative examination, unspecified Restrictive lung disease, Acute Productive Cough Other diseases of lung, not elsewhere classified Sleep apnea, unspecified type Protein-calorie malnutrition, unspecified severity (HCC) Hypothyroidism, unspecified type Age-related osteoporosis without current pathological fracture Senile osteoporosis Polymyositis (HCC) Polymyositis Ischemia of digits of hand Unspecified circulatory system disorder Episode of recurrent major depressive disorder, unspecified depression episode severity (HCC) Occipital neuralgia of right side Acquired fusion of cervical spine Other unspecified back disorder Restless leg syndrome Restless legs syndrome (RLS) Palpitations Raynaud's disease without gangrene Urine, incontinence, stress female Female stress incontinence Muscular deconditioning Muscular wasting and disuse atrophy, not elsewhere classified Dysphagia, unspecified type Status post reverse total shoulder replacement, right- Primary documented in this encounter [facility] note* Diagnosis Episode of recurrent major depressive disorder, unspecified depression episode severity- Primary Hypothyroidism, unspecified type Ischemia of digits of hand Unspecified circulatory system disorder Polymyositis (HCC) Polymyositis Restless leg syndrome Restless legs syndrome (RLS) Systemic sclerosis (HCC) Systemic sclerosis Shortness of breath Raynaud's disease without gangrene Pre-operative examination- Primary Preoperative examination, unspecified Systemic sclerosis; CREST Systemic sclerosis Glenohumeral arthritis, right Pre-op exam Preoperative examination, unspecified Restrictive lung disease, Acute Productive Cough Other diseases of lung, not elsewhere classified Sleep apnea, unspecified type Protein-calorie malnutrition, unspecified severity (HCC) Hypothyroidism, unspecified type Age-related osteoporosis without current pathological fracture Senile osteoporosis Polymyositis (HCC) Polymyositis Ischemia of digits of hand Unspecified circulatory system disorder Episode of recurrent major depressive disorder, unspecified depression episode severity Occipital neuralgia of right side Acquired fusion of cervical spine Other unspecified back disorder Restless leg syndrome Restless legs syndrome (RLS) Palpitations Raynaud's disease without gangrene Urine, incontinence, stress female Female stress incontinence Muscular deconditioning Muscular wasting and disuse atrophy, not elsewhere classified Dysphagia, unspecified type Influenza due to influenza A subtype H1N1 virus with pneumonia- Primary Chronic hypoxemic respiratory failure (HCC) Chronic respiratory failure ILD (interstitial lung disease) (HCC) Postinflammatory pulmonary fibrosis [facility] [place] [facility]* Diagnosis Episode of recurrent major depressive disorder, unspecified depression episode severity- Primary Hypothyroidism, unspecified type Ischemia of digits of hand Unspecified circulatory system disorder Polymyositis (HCC) Polymyositis Restless leg syndrome Restless legs syndrome (RLS) Systemic sclerosis (HCC) Systemic sclerosis Shortness of breath Raynaud's disease without gangrene Pre-operative examination- Primary Preoperative examination, unspecified Systemic sclerosis; CREST Systemic sclerosis Glenohumeral arthritis, right Pre-op exam Preoperative examination, unspecified Restrictive lung disease, Acute Productive Cough Other diseases of lung, not elsewhere classified Sleep apnea, unspecified type Protein-calorie malnutrition, unspecified severity (HCC) Hypothyroidism, unspecified type Age-related osteoporosis without current pathological fracture Senile osteoporosis Polymyositis (HCC) Polymyositis Ischemia of digits of hand Unspecified circulatory system disorder Episode of recurrent major depressive disorder, unspecified depression episode severity Occipital neuralgia of right side Acquired fusion of cervical spine Other unspecified back disorder Restless leg syndrome Restless legs syndrome (RLS) Palpitations Raynaud's disease without gangrene Urine, incontinence, stress female Female stress incontinence Muscular deconditioning Muscular wasting and disuse atrophy, not elsewhere classified Dysphagia, unspecified type Age-related osteoporosis without current pathological fracture Senile osteoporosis documented in this encounter [facility] [place] [facility]* Diagnosis Episode of recurrent major depressive disorder, unspecified depression episode severity- Primary Hypothyroidism, unspecified type Ischemia of digits of hand Unspecified circulatory system disorder Polymyositis (HCC) Polymyositis Restless leg syndrome Restless legs syndrome (RLS) Systemic sclerosis (HCC) Systemic sclerosis Shortness of breath Raynaud's disease without gangrene Pre-operative examination- Primary Preoperative examination, unspecified Systemic sclerosis; CREST Systemic sclerosis Glenohumeral arthritis, right Pre-op exam Preoperative examination, unspecified Restrictive lung disease, Acute Productive Cough Other diseases of lung, not elsewhere classified Sleep apnea, unspecified type Protein-calorie malnutrition, unspecified severity (HCC) Hypothyroidism, unspecified type Age-related osteoporosis without current pathological fracture Senile osteoporosis Polymyositis (HCC) Polymyositis Ischemia of digits of hand Unspecified circulatory system disorder Episode of recurrent major depressive disorder, unspecified depression episode severity Occipital neuralgia of right side Acquired fusion of cervical spine Other unspecified back disorder Restless leg syndrome Restless legs syndrome (RLS) Palpitations Raynaud's disease without gangrene Urine, incontinence, stress female Female stress incontinence Muscular deconditioning Muscular wasting and disuse atrophy, not elsewhere classified Dysphagia, unspecified type ILD (interstitial lung disease) ([facility])- Primary Postinflammatory pulmonary fibrosis Pulmonary aspiration of gastric contents, subsequent encounter Pneumonia of left lower lobe due to infectious organism Chronic hypoxemic respiratory failure (HCC) Chronic respiratory failure Pneumonia of left lower lobe due to infectious organism [facility] Episode of recurrent major depressive disorder, unspecified depression episode severity- Primary Hypothyroidism, unspecified type Ischemia of digits of hand Unspecified circulatory system disorder Polymyositis (HCC) Polymyositis Restless leg syndrome Restless legs syndrome (RLS) Systemic sclerosis (HCC) Systemic sclerosis Shortness of breath Raynaud's disease without gangrene Pre-operative examination- Primary Preoperative examination, unspecified Systemic sclerosis; CREST Systemic sclerosis Glenohumeral arthritis, right Pre-op exam Preoperative examination, unspecified Restrictive lung disease, Acute Productive Cough Other diseases of lung, not elsewhere classified Sleep apnea, unspecified type Protein-calorie malnutrition, unspecified severity (HCC) Hypothyroidism, unspecified type Age-related osteoporosis without current pathological fracture Senile osteoporosis Polymyositis (HCC) Polymyositis Ischemia of digits of hand Unspecified circulatory system disorder Episode of recurrent major depressive disorder, unspecified depression episode severity Occipital neuralgia of right side Acquired fusion of cervical spine Other unspecified back disorder Restless leg syndrome Restless legs syndrome (RLS) Palpitations Raynaud's disease without gangrene Urine, incontinence, stress female Female stress incontinence Muscular deconditioning Muscular wasting and disuse atrophy, not elsewhere classified Dysphagia, unspecified type Pneumonia of left lower lobe due to infectious organism [facility] This is a 55-year-old female who I was asked to consult on because of abnormal breath soun ds and preop clearance for a right total knee by Dr. Barnes to be done on February 04. Patient reportshaving a flareup of her chest congestion and was given a Z-Romaine by her attending recently. She has ahistory of polymyositis and scleroderma and a known history of interstitial lung disease. She reports her sputum is clear and tenacious as it was prior to the antibiotics. Patient reports that she did generally has not had problems with breathing except for about 1 year ago and then during the last3 months. Patient underwent a tracheostomy about 30 years ago and was on a ventilator. Patient doesfollow with a occup therapist at the [facility]. * Patient reports that she has never been a smoker. I personally reviewed her chest x-ray from 08/11/2020 which suggest the presence of interstitial lung disease in her bases right greater than left. Shehad a previous chest x-ray from 08/18/2019 which showed bilateral pleural effusions with a large effusion on the right side. She subsequently was placed on diuretics with improvement in that. She alsohad a CT scan of her chest on 12/26/2017 which showed bilateral interstitial lung disease -[place] [id number] DO Work Phone: History of Present illness Narrative* Patient was seen today in the office on a preop follow-up visit. Patient reports that her breathingdoes appear to be better using the Breo 100/25 dose inhaled once a day. Her pulmonary function studies do show evidence of significant restrictive lung disease as would be expected with her pulmonaryfibrosis and there was also evidence of some small airway obstructive disease that improved postbronchodilator. Her postbronchodilator FEV1 is 0.99 L. Patient's oxygen saturation today on room air was 93%. Patient has no difficulty with ambulating on her own. She is in no respiratory distress at rest. She is scheduled for her right total knee replacement on 02/04/2021. * Review of her high resolution CT scan of the chest on 01/06/2021 shows extensive honeycombing within the bilateral lungs predominantly the bases and a left lower lobe greater than the right lower lobe.These changes are consistent with her history of scleroderma and polymyositis. There is no evidenceof any other parenchymal disease. She also has demonstration of atrophy of musculature in keeping with her history of polymyositis. -Pulmonary [place] [id number] DO Work Phone: History of Present illness Narrative* Patient was seen today in the office on a preop follow-up visit. Patient reports that her breathingdoes appear to be better using the Breo 100/25 dose inhaled once a day. Her pulmonary function studies do show evidence of significant restrictive lung disease as would be expected with her pulmonaryfibrosis and there was also evidence of some small airway obstructive disease that improved postbronchodilator. Her postbronchodilator FEV1 is 0.99 L. Patient's oxygen saturation today on room air was 93%. Patient has no difficulty with ambulating on her own. She is in no respiratory distress at rest. She is scheduled for her right total knee replacement on 02/04/2021. * Review of her high resolution CT scan of the chest on 01/06/2021 shows extensive honeycombing within the bilateral lungs predominantly the bases and a left lower lobe greater than the right lower lobe.These changes are consistent with her history of scleroderma and polymyositis. There is no evidenceof any other parenchymal disease. She also has demonstration of atrophy of musculature in keeping with her history of polymyositis. [facility] [place] [id number] DO Work Phone: History of Present illness Narrative* Patient was seen today in the office. She relates a history of having successful right knee replacement done at [facility] and then within a couple days after her discharge from the hospital she developed worsening medical condition and was initially sent to [place] but then they transferred her to [facility]. She was in the hospital there from 02 06-02 20 with pneumonia, some history of mucous plugging and sepsis according to the notes I have received. We have not yet received the records from the [facility]. She was not discharged on any oxygen to the home. She has albuterol treatments 4 times daily and Pulmicort 0.5 mg nebulized twice daily along with hypertonic saline (7%) to be used twice daily without bronchodilator. * Patient denies having any respiratory problems at this point and is not having any trouble clearingher airway secretions. She did have a problems with extremely sore throat and upper airway most likely secondary to her being intubated at the [facility] and also possibly at [facility]. Patient re ports no memory of the surgery and no memory of the first 2 weeks of her stay at [facility]. Last thing she remembers is being in preop holding prior to her knee surgery. * Patient does report that her knee is doing very well and she is ambulating without difficulty. [facility] MedicineJames [place] [id number] DO Work Phone: History of Present illness Narrative* Patient was seen today on a follow-up visit. She had been recently hospitalized for knee surgery and has a history of scleroderma, polymyositis, interstitial lung disease and chronic bronchitis. Patient reports that her knee is doing well and she denies having any respiratory problems at this time she had a very [facility] hospital course at couple different institutions before she recovered from the surgery her oxygen saturation on room air was 97% today * She denies any cough or sputum production. She has no hemoptysis, wheezing or nighttime respiratorysymptoms. She has no dyspnea with her ADLs. [facility] DO Work Phone: History of Present illness Narrative* Interval Events: Past medical, surgical, social and family history reviewed and updated. * Interval Care: She does not have regular dental visits. She does not receive routine vision care. Immunizations up to date. * Lifestyle: She does not have a healthy diet. She does not have any weight concerns. She consumes alcohol. She reports occasional alcohol use and her last drink was 1 weeks ago. She typically drinks hard liquor. Alcohol concern: The patient has no concerns about alcohol abuse. She does not use tobacco. She is not sexually active. Aerobic Exercise: 7 times a week. Biking. Exercise on hold d/t knee pain. * Female Health: Date of last period: 2004. : 3. full term: 2 and miscarriage(s): 1. The patient is postmenopausal. Date of last pap smear: unknown. Pap smear not current:. * Screening Mammogram: Date of Last Screening Mammogram: 2011. * Screening DEXA: Date of last DEXA: . * Screening Colonoscopy: Cologuard/ FIT current. * Metabolic screening: Glucose, Vitamin D, CBC/Iron, Lipids and Thyroid. * Lifestyle Safety Elements: uses seat belts. * There are no concerns today. * The patient's health since the last visit is described as good. * 56 y.o. female presents for women's health visit. She declines mammogram order at this time. * Cologuard kit at home will send in * DEXA scan declined * Declines PAP -[facility] Work Phone: History of Present illness Narrative* Interval Events: Past medical, surgical, social and family history reviewed and updated. * Interval Care: She does not have regular dental visits. She does not receive routine vision care. Immunizations up to date. * Lifestyle: She does not have a healthy diet. She does not have any weight concerns. She consumes alcohol. She reports occasional alcohol use and her last drink was 1 weeks ago. She typically drinks hard liquor. Alcohol concern: The patient has no concerns about alcohol abuse. She does not use tobacco. She is not sexually active. Aerobic Exercise: 7 times a week. Biking. Exercise on hold d/t knee pain. * Female Health: Date of last period: 2004. : 3. full term: 2 and miscarriage(s): 1. The patient is postmenopausal. Date of last pap smear: unknown. Pap smear not current:. * Screening Mammogram: Date of Last Screening Mammogram: 2011. * Screening DEXA: Date of last DEXA: . * Screening Colonoscopy: Cologuard/ FIT current. * Metabolic screening: Glucose, Vitamin D, CBC/Iron, Lipids and Thyroid. * Lifestyle Safety Elements: uses seat belts. * There are no concerns today. * The patient's health since the last visit is described as good. * 56 y.o. female presents for women's health visit and [facility]. * Mammogram: OD-declined * Cologuard kit at home will send it in soon. * DEXA scan: OD- declined * PAP: OD-declined * Patient declined all screenings at this time. She states she has too many things going on right now. She will consider at her 6 month appointment. She agreed to have a PAP completed in 6 months. * Anxiety and depression: Controlled with sertraline. She was taking 50 mg once daily, recently she started feeling more depressed and increased to 100 mg daily. She will continue 100 mg daily and notify of effectiveness.I will leave sertraline 50 mg X 3 as she may need to increase dose to prescribed. * Asthma: Follows with Dr. Rose. Well-controlled since she started Breo. * Left knee pain, osteoporosis, and right knee pain: Gabapentin offers effective relief. * Hypothyroidism: Compliant with Levothyroxine 100 mcg daily. * Scleroderma: Compliant with Prednisone daily. * RLS: Well-controlled with Ropinirole -[facility] Work Phone: History of Present illness Narrative* Interval Events: Past medical, surgical, social and family history reviewed and updated. * Interval Care: She does not have regular dental visits. She does not receive routine vision care. Immunizations up to date. * Lifestyle: She does not have a healthy diet. She does not have any weight concerns. She consumes alcohol. She reports occasional alcohol use and her last drink was 1 weeks ago. She typically drinks hard liquor. Alcohol concern: The patient has no concerns about alcohol abuse. She does not use tobacco. She is not sexually active. Aerobic Exercise: 7 times a week. Biking. Exercise on hold d/t knee pain. * Female Health: Date of last period: 2004. : 3. full term: 2 and miscarriage(s): 1. The patient is postmenopausal. Date of last pap smear: unknown. Pap smear not current:. * Screening Mammogram: Date of Last Screening Mammogram: 2011. * Screening DEXA: Date of last DEXA: . * Screening Colonoscopy: Cologuard/ FIT current. * Metabolic screening: Glucose, Vitamin D, CBC/Iron, Lipids and Thyroid. * Lifestyle Safety Elements: uses seat belts. * There are no concerns today. * The patient's health since the last visit is described as good. * 56 y.o. female presents for women's health visit and [facility]. * Mammogram: OD-declined * Cologuard kit at home will send it in soon. * DEXA scan: OD- declined * PAP: OD-declined * Patient declined all screenings at this time. She states she has too many things going on right now. She will consider at her 6 month appointment. She agreed to have a PAP scheduled in 6 months. * Anxiety and depression: Controlled with sertraline. She was taking 50 mg once daily, recently she started feeling more depressed and increased to 100 mg daily. She will continue 100 mg daily and notify of effectiveness.I will leave sertraline 50 mg X 3 as she may need to increase dose to prescribed. * Asthma: Follows with Dr. Rose. Well-controlled since she started Breo. * Left knee pain, osteoporosis, and right knee pain: Gabapentin offers effective relief. * Hypothyroidism: Compliant with Levothyroxine 100 mcg daily. * Scleroderma: Compliant with Prednisone daily. * RLS: Well-controlled with Ropinirole -[facility] Work Phone: History of Present illness Narrative* The pt presents with Medical Dx of L shoulder adh capuslitis, L shoulder hills sachs deformity, L shoulder pain. Pt presents with the following deficits: increased pain, decreased strength, ROM, flexibility, functional movement and use of L arm/shoulder. Pt would benefit from PT services in order to improve on these deficits and to maximize strength and ability for functional activity/mobility. * Clinical Presentation: Evolving with changing characteristics. * Problem List: activity limitations, ADLs/IADLs/self care skills, decreased knowledge of HEP, flexibility, range of motion/joint mobility and strength. [facility] Work Phone: History of Present illness NarrativePatient identified by name and date of . Patient demonstrated fair tolerance to strengthening with addition of isometrics. She presented with limited motion and required cues to relax with PROM. [facility] Work Phone: History of Present illness Narrative* Patient identified by name and * Patient demo's difficulty with exacerbation of symptoms during treatment. Patient demo's fair tolerance to isometrics. Patient demo's difficulty with raising LUE to 90 requiring other UE to assist with raising and lowering. Tolerates shoulder shrugs with no exacerbation of symptoms. [facility] Work Phone: History of Present illness NarrativeAgree with CC as documented per MA. Follow-up of left shoulder pain and limited range of motion. She does state the cortisone injection from last visit was helping improve symptoms, she attended a couple sessions of PT. Patient was reaching up over head to pick something up and felt a sharp pain asnoted in CC. She continues to have increased pain and feels her range of motion is decreased from her last therapy visit. She is on routine dose of prednisone and has not attempted a burst or taper. Patient states she has difficulty applying ice to the area where she is sore. Denies any numbness ortingling of the arm.[facility] Work Phone: History of Present illness Narrative* .Pt has pain with ex's and PROM but tolerable per pt. PROM 115 deg flex, 110 deg abd, 55 deg ER and50 deg IR. * Response to treatment: improved joint mobility/ROM, improved strength and improved flexibility. * Patient was able to complete today's treatment with some difficulty. [facility] Work Phone: History of Present illness Narrative* Patient identified by name and * Patient demo's pain throughout session with PROM and AAROM. Patient demo's increased pain with descending LUE with PROM flexion with increased catching at approx. 90 degrees. Patient demo's firm end feel and end range and demo's difficulty with isometrics this date. Demo's improvements in toleranceof exercises throughout session. * Response to treatment: increased pain. [facility] Work Phone: History of Present illness Narrative* PT had good overall tolerance to PROM and ex's completed today but has a lot of pain and discomfortwith use of L arm with activity. * Response to treatment: improved joint mobility/ROM, improved strength and improved flexibility. [facility] Work Phone: History of Present illness Narrative* Evan De MD - 02/10/2024 4:20 PM EDT Subjective Patient ID: Tennille Ortiz is a 59 y.o. female who presents for Depression (6 week follow up; Paxil is working well) and Restless Legs (Is having more issues in the afternoon btw 1-3 pm; feels ropinirole may need increased). HPI Inflammatory disorder of the upper extremity Treated with triamcinolone cream. Depression Tries zoloft and keeps her awake 3 months ago tried Paxil. And doing much better with that. RLS dx by sleep study and no sleep apnea Sates had whole body restlessness Check ferritin needs about 75 Pulm fibrosis Trevor lungs CT December 2023 Cough white mucus Nebulizer has new tubing and will start nebulizers Sees lungs specialist Dr Bills Review of Systems Objective BP 90/64 Pulse 71 Wt (!) 43.7 kg (96 lb 4.8 oz) LMP (LMP Unknown) SpO2 99% BMI 17.61 kg/m Physical Exam Vitals reviewed. Constitutional: Appearance: Normal appearance. HENT: Head: Normocephalic and atraumatic. Eyes: Conjunctiva/sclera: Conjunctivae normal. Cardiovascular: Rate and Rhythm: Normal rate and regular rhythm. Pulmonary: Effort: Pulmonary effort is normal. No respiratory distress. Breath sounds: No wheezing or rales. Comments: Trevor crackles Musculoskeletal: Cervical back: Neck supple. Comments: Has left thoracic PS trigger pt tenderness Skin: General: Skin is warm and dry. Neurological: General: No focal deficit present. Mental Status: She is alert and oriented to person, place, and time. Psychiatric: Mood and Affect: Mood normal. Behavior: Behavior normal. Thought Content: Thought content normal. Judgment: Judgment normal. Assessment/Plan Diagnoses and all orders for this visit: Restless leg syndrome - Ferritin; Future - rOPINIRole (Requip) 1 mg tablet; Take 1 tablet (1 mg) by mouth 2 times a day. Anxiety and depression - PARoxetine (Paxil) 10 mg tablet; Take 1 tablet (10 mg) by mouth once daily at bedtime. Protein-calorie malnutrition, unspecified severity (Multi) - Ferritin; Future [facility]: [facility] Discharge instructions* Attachments The following attachments cannot be sent through Care Everywhere. * Cellulitis (Skin Infection), Adult ED ([place]) [facility] Work Phone: Reason for referral (narrative)* Name Reason for referral NA NA Dept. of Dermatology Reyjgg for referral (narrative)* Diagnostic Procedure Only (Routine) - Authorized Specialty Diagnoses / Procedures Referred By Contact Referred To Contact MOLECULAR & FUNCTIONAL IMAGING Diagnoses Abnormal findings on diagnostic imaging of other parts of musculoskeletal system Procedures NM BONE 3 PHASE BONE &/JOINT IMAGING 3 PHASE STUDY Chris Awad MD [address] [place] [address] Molecular & Functional Imaging [address] [place] [address] Referral ID Status Reason Start Date Expiration Date Visits Requested Visits Authorized [id number] Authorized Auto-Generat ed Referral 05/04/2023 06/02/2024 1 1 * Diagnostic Procedure Only (Routine) - Authorized Specialty Diagnoses / Procedures Referred By Contac t Referred To Contact MOLECULAR & FUNCTIONAL IMAGING Diagnoses Cervicalgia Procedures NM BONE SPECT RP LOCLZJ ALICIA SPECT W/CT 1 AREA 1 DAY IMAGING Chris Awad MD [address] [place] [address] Molecular & Functional Imaging [address] [place] [address] Referral ID Status Reason Start Date Expiration Date Visits Requested Visits Authorized [id number] Authorized Auto-Generat ed Referral 05/04/2023 06/02/2024 1 1 [facility] for referral (narrative)* Diagnostic Procedure Only (Routine) - Closed Specialty Diagnoses / Procedures Referred By Contac t Referred To Contact XR IMAGING Diagnoses Osteoporosis without current pathological fracture, unspecified osteoporosis type Arthropathy of cervical facet joint Neck pain Other fracture of unspecified thoracic vertebra, initial encounter for closed fracture (HCC) Procedures XR THORACIC GENERAL 3V AP/LAT/SWIMMERS RADEX SPINE THORACIC 3 VIEWS Maricruz Gimenez MD [address] [place] [address] Xr Imaging [place] [address] Referral ID Status Reason Start Date Expiration Date V isits Requested Visits Authorized [id number] Closed Auto-Generate d Referral 12/10/2022 01/09/2024 1 1 [facility] for referral (narrative)* Diagnostic Procedure Only (Routine) - Closed Specialty Diagnoses / Procedures Referred By Contac t Referred To Contact MOLECULAR & FUNCTIONAL IMAGING Diagnoses Cervicalgia Procedures NM BONE SPECT RP LOCLZJ ALICIA SPECT W/CT 1 AREA 1 DAY IMAGING Chris Awad MD [address] [place] [address] Molecular & Functional Imaging [address] [place] [address] Referral ID Status Reason Start Date Expiration Date V isits Requested Visits Authorized [id number] Closed Auto-Generate d Referral 05/04/2023 06/02/2024 1 1 [facility] for referral (narrative)* Consultation (Routine) - Authorized Specialty Diagnoses / Procedures Referred By Contac t Referred To Contact Orthopaedic Surgery / Orthopedic Surgery Diagnoses Biceps tendonitis on right Procedures Follow Up In Orthopaedic Surgery Evelyn Murray DIRECTOR AND PROFESSOR-DIESEL ENGINE MECHANIC [address] [facility], [place] [address] Referral ID Status Reason Start Date Expiration Date V isits Requested Visits Authorized [id number] Authorized 08/10/2023 08/09/2024 1 1 * Orthopedic (Routine) - Pending Review Specialty Diagnoses / Procedures Referred By Contac t Referred To Contact Orthopaedic Surgery / Orthopedic Surgery Diagnoses Biceps tendonitis on right Procedures L Inj/Asp Evelyn Murray DIRECTOR AND PROFESSOR-DIESEL ENGINE MECHANIC [address] [facility], [place] [phone] Referral ID Status Reason Start Date Expiration Date V isits Requested Visits Authorized [id number] Pending Review 07/28/2023 07/27/2024 1 1 [facility] Work Phone: Reason for referral (narrative)* Consultation (Routine) - Authorized Specialty Diagnoses / Procedures Referred By Contac t Referred To Contact Primary Care Procedures Follow Up In Primary Care - Established Christopher Rodgers PA-C [address] [facility], [address] [address] Referral ID Status Reason Start Date Expiration Date V isits Requested Visits Authorized [id number] Authorized 09/20/2023 09/19/2024 1 1 [facility] Work Phone: [facility] for referral (narrative)* Outpatient Procedure (Routine) - Pending Review Specialty Diagnoses / Procedures Referred By Contac t Referred To Contact [facility] Diagnoses ILD (interstitial lung disease) (HCC) Procedures SPIROMETRY BASELINE ONLY SPMTRY W/VC EXPIRATORY JOSEFA W/WO MXML VOL VNTJ Murphy Bills MD [address] [place] [address] Res[facility] [place] [address] [place] [address] Referral ID Status Reason Start Date Expiration Date Visits Requested Visits Authorized [id number] Pending Review Auto-Generat ed Referral 11/10/2023 12/09/2024 1 1 T [facility] for referral (narrative)* Diagnostic Procedure Only (Routine) - New Request Specialty Diagnoses / Procedures Referred By Contac t Referred To Contact XR IMAGING Diagnoses Glenohumeral arthritis, right Pre-op exam Procedures XR SHOULDER GENERAL 3V OR MORE AP/TRUE AP/OTHER RIGHT RADEX SHOULDER COMPLETE MINIMUM 2 VIEWS Heri Pappas PA-C [address] [facility] [place] [address] [place] [address] Referral ID Status Reason Start Date Expiration Date Visits Requested Visits Authorized [id number] New Request Auto-Generat ed Referral 4 06/27/2025 1 1 * MRI/CT (Routine) - New Request Specialty Diagnoses / Procedures Referred By Contac t Referred To Contact MR IMAGING Diagnoses Glenohumeral arthritis, right Pre-op exam Procedures MRI SHOULDER WO IVCON RIGHT MRI ANY JT UPPER EXTREMITY W/O CONTRAST MATRL Heri Pappas PA-C [address] [place] [address] Mr Imaging [place] [address] Referral ID Status Reason Start Date Expiration Date Visits Requested Visits Authorized [id number] New Request Auto-Generat ed Referral 4 06/27/2025 1 1 * Consult, Test, Treat (Routine) - Authorized Specialty Diagnoses / Procedures Referred By Contac t Referred To Contact Diagnoses Glenohumeral arthritis, right Pre-op exam Procedures REFER TO [facility] - PREOPERATIVE OPTIMIZATION OFFICE/OUTPATIENT NEW HIGH MDM 60 MINUTES Heri Pappas PA-C [address] [place] [address] Referral ID Status Reason Start Date Expiration Date Visits Requested Visits Authorized [id number] Authorized PCP Requested Referral 4 05/28/2025 1 1 [facility] for referral (narrative)* Consultation (Routine) - Pending Review Specialty Diagnoses / Procedures Referred By Contac t Referred To Contact Orthopaedic Surgery Diagnoses Cervical vertebral fusion Degenerative disc disease, cervical Chronic head pain Evaristo Du, DIRECTOR AND PROFESSOR-DIESEL ENGINE MECHANIC [address] [facility], [place] [phone] Mikie Ochoa MD [address] [place] [address] Referral ID Status Reason Start Date Expiration Date Visits Requested Visits Authorized [id number] Pending Review Specialty Services Required 09/21/2022 03/20/2023 1 1 [facility] Work Phone: Reason for referral (narrative)* Outpatient Procedure (Routine) - Closed Specialty Diagnoses / Procedures Referred By Juan Carlos t Referred To Contact [facility] Diagnoses Pre-operative examination Procedures ECG COMPLETE ECG ROUTINE ECG W/LEAST 12 LDS W/I&R Jacqueline Peck APRN.CNP [address] [place] [address] [facility] [place] [address] [place] [address] Referral ID Status Reason Start Date Expiration Date V isits Requested Visits Authorized [id number] Closed Auto-Generate d Referral 06/18/2024 06/18/2025 1 1 [facility] for visit Narrative* Initial Evaluation. * Referred by: Evelyn Murray CNP [facility] Work Phone: Reason for visit Narrative* Diagnostic Procedure Only (Routine) - Closed Specialty Diagnoses / Procedures Referred By Contac t Referred To Contact XR IMAGING Diagnoses Osteoporosis without current pathological fracture, unspecified osteoporosis type Arthropathy of cervical facet joint Neck pain Other fracture of unspecified thoracic vertebra, initial encounter for closed fracture (HCC) Procedures XR THORACIC GENERAL 3V AP/LAT/SWIMMERS RADEX SPINE THORACIC 3 VIEWS Maricruz Gimenez MD [address] [place] [address] [place] [address] Referral ID Status Reason Start Date Expiration Date V isits Requested Visits Authorized [id number] Closed Auto-Generate d Referral 12/10/2022 01/09/2024 1 1 [facility] for visit Narrative* Diagnostic Procedure Only (Routine) - Closed Specialty Diagnoses / Procedures Referred By Contac t Referred To Contact MOLECULAR & FUNCTIONAL IMAGING Diagnoses Cervicalgia Procedures NM BONE SPECT RP LOCLZJ ALICIA SPECT W/CT 1 AREA 1 DAY IMAGING Chris Awad MD [address] [place] [address] Molecular & Functional Imaging [address] [place] [address] Referral ID Status Reason Start Date Expiration Date V isits Requested Visits Authorized [id number] Closed Auto-Generate d Referral 05/04/2023 06/02/2024 1 1 [facility] for visit Narrative* Diagnostic Procedure Only (Routine) - Closed Specialty Diagnoses / Procedures Referred By Contac t Referred To Contact XR IMAGING Diagnoses Pain Procedures XR SHOULDER GENERAL 3V OR MORE AP/TRUE AP/OTHER RIGHT RADEX SHOULDER COMPLETE MINIMUM [address] [place] [address] [place] [address] Xr Imaging [place] [address] Referral ID Status Reason Start Date Expiration Date V isits Requested Visits Authorized [id number] Closed Auto-Generate d Referral 11/08/2023 07/03/2024 1 1 [facility] for visit Narrative* Diagnostic Procedure Only (Routine) - Closed Specialty Diagnoses / Procedures Referred By Contac t Referred To Contact XR IMAGING Diagnoses Glenohumeral arthritis, right Pre-op exam Procedures XR SHOULDER GENERAL 3V OR MORE AP/TRUE AP/OTHER RIGHT RADEX SHOULDER COMPLETE MINIMUM 2 VIEWS Heri Pappas, PA-C [address] [place] [id number] [place] [address] Referral ID Status Reason Start Date Expiration Date V isits Requested Visits Authorized [id number] Closed Auto-Generate d Referral 05/28/2024 06/27/2025 1 1 [facility] for visit Narrative* Diagnostic Procedure Only (Routine) - Closed Specialty Diagnoses / Procedures Referred By Contac t Referred To Contact XR IMAGING Diagnoses Age-related osteoporosis without current pathological fracture Procedures DXA-AXIAL SKELETON DXA BONE DENSITY STUDY 1/> SITES AXIAL Donnie Hernandez MD [address] [place] [address] Phone: tel: fax: [place] [address] Referral ID Status Reason Start Date Expiration Date V isits Requested Visits Authorized [id number] Closed Auto-Generate d Referral 04/18/2024 05/18/2025 1 1 [facility] Summary Purpose Family History Mother Name Dates Details Family history of coronary a rtery disease(V17.3, Z82.49) Status:Active Father Name Dates Details Family history of acute myoc ardial infarction(V17.3, Z82.49) Status:Active Mother Name Dates Details Family history of coronary a rtery disease(V17.3, Z82.49) Status:Active Father Name Dates Details Family history of acute myoc ardial infarction(V17.3, Z82.49) Status:Active Unknown Family Member Name Dates Details Family history of coronary a rtery disease: Mother(V17.3, Z82.49) Status:Active Family history of acute myoc ardial infarction: Father(V17.3, Z82.49) Status:Active Unknown Family Member Name Dates Details Family history of coronary a rtery disease: Mother(V17.3, Z82.49) Status:Active Family history of acute myoc ardial infarction: Father(V17.3, Z82.49) Status:Active Unknown Family Member Name Dates Details Family history of coronary a rtery disease: Mother(V17.3, Z82.49) Status:Active Family history of acute myoc ardial infarction: Father(V17.3, Z82.49) Status:Active Unknown Family Member Name Dates Details Family history of coronary a rtery disease: Mother(V17.3, Z82.49) Status:Active Family history of acute myoc ardial infarction: Father(V17.3, Z82.49) Status:Active Unknown Family Member Name Dates Details Family history of coronary a rtery disease: Mother(V17.3, Z82.49) Status:Active Family history of acute myoc ardial infarction: Father(V17.3, Z82.49) Status:Active Unknown Family Member Name Dates Details Family history of coronary a rtery disease: Mother(V17.3, Z82.49) Status:Active Family history of acute myoc ardial infarction: Father(V17.3, Z82.49) Status:Active Unknown Family Member Name Dates Details Family history of coronary a rtery disease: Mother(V17.3, Z82.49) Status:Active Family history of acute myoc ardial infarction: Father(V17.3, Z82.49) Status:Active Unknown Family Member Name Dates Details Family history of coronary a rtery disease: Mother(V17.3, Z82.49) Status:Active Family history of acute myoc ardial infarction: Father(V17.3, Z82.49) Status:Active Unknown Family Member Name Dates Details Family history of coronary a rtery disease: Mother(V17.3, Z82.49) Status:Active Family history of acute myoc ardial infarction: Father(V17.3, Z82.49) Status:Active Unknown Family Member Name Dates Details Family history of coronary a rtery disease: Mother(V17.3, Z82.49) Status:Active Family history of acute myoc ardial infarction: Father(V17.3, Z82.49) Status:Active Unknown Family Member Name Dates Details Family history of coronary a rtery disease: Mother(V17.3, Z82.49) Status:Active Family history of acute myoc ardial infarction: Father(V17.3, Z82.49) Status:Active Unknown Family Member Name Dates Details Family history of coronary a rtery disease: Mother(V17.3, Z82.49) Status:Active Family history of acute myoc ardial infarction: Father(V17.3, Z82.49) Status:Active Unknown Family Member Name Dates Details Family history of coronary a rtery disease: Mother(V17.3, Z82.49) Status:Active Family history of acute myoc ardial infarction: Father(V17.3, Z82.49) Status:Active Unknown Family Member Name Dates Details Family history of coronary a rtery disease: Mother(V17.3, Z82.49) Status:Active Family history of acute myoc ardial infarction: Father(V17.3, Z82.49) Status:Active Cerebrovascular accident (CV A) due to other mechanism: Father Status:Active Family history of diabetes m ellitus: Daughter(V18.0, Z83.3) Status:Active Unknown Family Member Name Dates Details Family history of coronary a rtery disease: Mother(V17.3, Z82.49) Status:Active Family history of acute myoc ardial infarction: Father(V17.3, Z82.49) Status:Active Cerebrovascular accident (CV A) due to other mechanism: Father Status:Active Family history of diabetes m ellitus: Daughter(V18.0, Z83.3) Status:Active Unknown Family Member Name Dates Details Family history of coronary a rtery disease: Mother(V17.3, Z82.49) Status:Active Family history of acute myoc ardial infarction: Father(V17.3, Z82.49) Status:Active Cerebrovascular accident (CV A) due to other mechanism: Father Status:Active Family history of diabetes m ellitus: Daughter(V18.0, Z83.3) Status:Active Unknown Family Member Name Dates Details Family history of coronary a rtery disease: Mother(V17.3, Z82.49) Status:Active Family history of acute myoc ardial infarction: Father(V17.3, Z82.49) Status:Active Cerebrovascular accident (CV A) due to other mechanism: Father Status:Active Family history of diabetes m ellitus: Daughter(V18.0, Z83.3) Status:Active Unknown Family Member Name Dates Details Family history of coronary a rtery disease: Mother(V17.3, Z82.49) Status:Active Family history of acute myoc ardial infarction: Father(V17.3, Z82.49) Status:Active Cerebrovascular accident (CV A) due to other mechanism: Father Status:Active Family history of diabetes m ellitus: Daughter(V18.0, Z83.3) Status:Active Unknown Family Member Name Dates Details Family history of coronary a rtery disease: Mother(V17.3, Z82.49) Status:Active Family history of acute myoc ardial infarction: Father(V17.3, Z82.49) Status:Active Cerebrovascular accident (CV A) due to other mechanism: Father Status:Active Family history of diabetes m ellitus: Daughter(V18.0, Z83.3) Status:Active Unknown Family Member Name Dates Details Family history of coronary a rtery disease: Mother(V17.3, Z82.49) Status:Active Family history of acute myoc ardial infarction: Father(V17.3, Z82.49) Status:Active Cerebrovascular accident (CV A) due to other mechanism: Father Status:Active Family history of diabetes m ellitus: Daughter(V18.0, Z83.3) Status:Active Unknown Family Member Name Dates Details Family history of coronary a rtery disease: Mother(V17.3, Z82.49) Status:Active Family history of acute myoc ardial infarction: Father(V17.3, Z82.49) Status:Active Cerebrovascular accident (CV A) due to other mechanism: Father Status:Active Family history of diabetes m ellitus: Daughter(V18.0, Z83.3) Status:Active Unknown Family Member Name Dates Details Family history of coronary a rtery disease: Mother(V17.3, Z82.49) Status:Active Family history of acute myoc ardial infarction: Father(V17.3, Z82.49) Status:Active Cerebrovascular accident (CV A) due to other mechanism: Father Status:Active Family history of diabetes m ellitus: Daughter(V18.0, Z83.3) Status:Active Unknown Family Member Name Dates Details Family history of coronary a rtery disease: Mother(V17.3, Z82.49) Status:Active Family history of acute myoc ardial infarction: Father(V17.3, Z82.49) Status:Active Cerebrovascular accident (CV A) due to other mechanism: Father Status:Active Family history of diabetes m ellitus: Daughter(V18.0, Z83.3) Status:Active Unknown Family Member Name Dates Details Family history of coronary a rtery disease: Mother(V17.3, Z82.49) Status:Active Family history of acute myoc ardial infarction: Father(V17.3, Z82.49) Status:Active Cerebrovascular accident (CV A) due to other mechanism: Father Status:Active Family history of diabetes m ellitus: Daughter(V18.0, Z83.3) Status:Active Unknown Family Member Name Dates Details Family history of coronary a rtery disease: Mother(V17.3, Z82.49) Status:Active Family history of acute myoc ardial infarction: Father(V17.3, Z82.49) Status:Active Cerebrovascular accident (CV A) due to other mechanism: Father Status:Active Family history of diabetes m ellitus: Daughter(V18.0, Z83.3) Status:Active Unknown Family Member Name Dates Details Family history of coronary a rtery disease: Mother(V17.3, Z82.49) Status:Active Family history of acute myoc ardial infarction: Father(V17.3, Z82.49) Status:Active Cerebrovascular accident (CV A) due to other mechanism: Father Status:Active Family history of diabetes m ellitus: Daughter(V18.0, Z83.3) Status:Active Unknown Family Member Name Dates Details Family history of coronary a rtery disease: Mother(V17.3, Z82.49) Status:Active Family history of acute myoc ardial infarction: Father(V17.3, Z82.49) Status:Active Family history of diabetes m ellitus: Daughter(V18.0, Z83.3) Status:Active Cerebrovascular accident (CV A) due to other mechanism: Father Status:Active Unknown Family Member Name Dates Details Family history of coronary a rtery disease: Mother(V17.3, Z82.49) Status:Active Family history of acute myoc ardial infarction: Father(V17.3, Z82.49) Status:Active Cerebrovascular accident (CV A) due to other mechanism: Father Status:Active Family history of diabetes m ellitus: Daughter(V18.0, Z83.3) Status:Active Unknown Family Member Name Dates Details Family history of coronary a rtery disease: Mother(V17.3, Z82.49) Status:Active Family history of acute myoc ardial infarction: Father(V17.3, Z82.49) Status:Active Cerebrovascular accident (CV A) due to other mechanism: Father Status:Active Family history of diabetes m ellitus: Daughter(V18.0, Z83.3) Status:Active Unknown Family Member Name Dates Details Family history of coronary a rtery disease: Mother(V17.3, Z82.49) Status:Active Family history of acute myoc ardial infarction: Father(V17.3, Z82.49) Status:Active Cerebrovascular accident (CV A) due to other mechanism: Father Status:Active Family history of diabetes m ellitus: Daughter(V18.0, Z83.3) Status:Active Unknown Family Member Name Dates Details Family history of coronary a rtery disease: Mother(V17.3, Z82.49) Status:Active Family history of acute myoc ardial infarction: Father(V17.3, Z82.49) Status:Active Cerebrovascular accident (CV A) due to other mechanism: Father Status:Active Family history of diabetes m ellitus: Daughter(V18.0, Z83.3) Status:Active Unknown Family Member Name Dates Details Family history of coronary a rtery disease: Mother(V17.3, Z82.49) Status:Active Family history of acute myoc ardial infarction: Father(V17.3, Z82.49) Status:Active Cerebrovascular accident (CV A) due to other mechanism: Father Status:Active Family history of diabetes m ellitus: Daughter(V18.0, Z83.3) Status:Active Unknown Family Member Name Dates Details Family history of coronary a rtery disease: Mother(V17.3, Z82.49) Status:Active Family history of acute myoc ardial infarction: Father(V17.3, Z82.49) Status:Active Cerebrovascular accident (CV A) due to other mechanism: Father Status:Active Family history of diabetes m ellitus: Daughter(V18.0, Z83.3) Status:Active Unknown Family Member Name Dates Details Family history of coronary a rtery disease: Mother(V17.3, Z82.49) Status:Active Family history of acute myoc ardial infarction: Father(V17.3, Z82.49) Status:Active Cerebrovascular accident (CV A) due to other mechanism: Father Status:Active Family history of diabetes m ellitus: Daughter(V18.0, Z83.3) Status:Active Unknown Family Member Name Dates Details Family history of coronary a rtery disease: Mother(V17.3, Z82.49) Status:Active Family history of acute myoc ardial infarction: Father(V17.3, Z82.49) Status:Active Family history of diabetes m ellitus: Daughter(V18.0, Z83.3) Status:Active Cerebrovascular accident (CV A) due to other mechanism: Father Status:Active Unknown Family Member Name Dates Details Family history of coronary a rtery disease: Mother(V17.3, Z82.49) Status:Active Family history of acute myoc ardial infarction: Father(V17.3, Z82.49) Status:Active Cerebrovascular accident (CV A) due to other mechanism: Father Status:Active Family history of diabetes m ellitus: Daughter(V18.0, Z83.3) Status:Active Unknown Family Member Name Dates Details Family history of coronary a rtery disease: Mother(V17.3, Z82.49) Status:Active Family history of acute myoc ardial infarction: Father(V17.3, Z82.49) Status:Active Cerebrovascular accident (CV A) due to other mechanism: Father Status:Active Family history of diabetes m ellitus: Daughter(V18.0, Z83.3) Status:Active Unknown Family Member Name Dates Details Family history of coronary a rtery disease: Mother(V17.3, Z82.49) Status:Active Family history of acute myoc ardial infarction: Father(V17.3, Z82.49) Status:Active Cerebrovascular accident (CV A) due to other mechanism: Father Status:Active Family history of diabetes m ellitus: Daughter(V18.0, Z83.3) Status:Active Unknown Family Member Name Dates Details Family history of coronary a rtery disease: Mother(V17.3, Z82.49) Status:Active Family history of acute myoc ardial infarction: Father(V17.3, Z82.49) Status:Active Cerebrovascular accident (CV A) due to other mechanism: Father Status:Active Family history of diabetes m ellitus: Daughter(V18.0, Z83.3) Status:Active Unknown Family Member Name Dates Details Family history of coronary a rtery disease: Mother(V17.3, Z82.49) Status:Active Family history of acute myoc ardial infarction: Father(V17.3, Z82.49) Status:Active Cerebrovascular accident (CV A) due to other mechanism: Father Status:Active Family history of diabetes m ellitus: Daughter(V18.0, Z83.3) Status:Active Unknown Family Member Name Dates Details Family history of coronary a rtery disease: Mother(V17.3, Z82.49) Status:Active Family history of acute myoc ardial infarction: Father(V17.3, Z82.49) Status:Active Cerebrovascular accident (CV A) due to other mechanism: Father Status:Active Family history of diabetes m ellitus: Daughter(V18.0, Z83.3) Status:Active Unknown Family Member Name Dates Details Family history of coronary a rtery disease: Mother(V17.3, Z82.49) Status:Active Family history of acute myoc ardial infarction: Father(V17.3, Z82.49) Status:Active Cerebrovascular accident (CV A) due to other mechanism: Father Status:Active Family history of diabetes m ellitus: Daughter(V18.0, Z83.3) Status:Active Unknown Family Member Name Dates Details Family history of coronary a rtery disease: Mother(V17.3, Z82.49) Status:Active Family history of acute myoc ardial infarction: Father(V17.3, Z82.49) Status:Active Cerebrovascular accident (CV A) due to other mechanism: Father Status:Active Family history of diabetes m ellitus: Daughter(V18.0, Z83.3) Status:Active Unknown Family Member Name Dates Details Family history of coronary a rtery disease: Mother(V17.3, Z82.49) Status:Active Family history of acute myoc ardial infarction: Father(V17.3, Z82.49) Status:Active Cerebrovascular accident (CV A) due to other mechanism: Father Status:Active Family history of diabetes m ellitus: Daughter(V18.0, Z83.3) Status:Active Unknown Family Member Name Dates Details Family history of coronary a rtery disease: Mother(V17.3, Z82.49) Status:Active Family history of acute myoc ardial infarction: Father(V17.3, Z82.49) Status:Active Cerebrovascular accident (CV A) due to other mechanism: Father Status:Active Family history of diabetes m ellitus: Daughter(V18.0, Z83.3) Status:Active Unknown Family Member Name Dates Details Family history of coronary a rtery disease: Mother(V17.3, Z82.49) Status:Active Family history of acute myoc ardial infarction: Father(V17.3, Z82.49) Status:Active Cerebrovascular accident (CV A) due to other mechanism: Father Status:Active Family history of diabetes m jerome: Daughter(V18.0, Z83.3) Status:Active Advance Directives Documents on File Type Date Recorded Patient Public Transportation Inspector Expl anation Advance Directives and Living Will Documents on File Type Date Recorded Patient Public Transportation Inspector Expl anation Advance Directive(s) 03/03/2021 1:51 PM Documents on File Type Date Recorded Patient Public Transportation Inspector Expl anation Advance Directive(s) 03/03/2021 1:51 PM Advance Directive Response Recorded Date/ Time Living Will No April 23 10:05am Power of Light Truck Driver No April 23, 2023 10:05am History of Present Illness * Silvestre Ricardo MD - 09/11/2019 11:20 AM EDT Dictation on: 09/11/2019 11:22 AM by: SILVESTRE RICARDO [[id number]] documented in this encounter* Silvestre Ricardo MD - 11/13/2019 1:57 PM EDT Dictation on: 11/13/2019 1:58 PM by: SILVESTRE RICARDO [[id number]] documented in this encounter* Pamela Abernathy LPN - 10/08/2019 11:33 AM EDT Patient was discharged from [facility] and is staying with her Mother now per patient. documented in this encounter* Silvestre Ricardo MD - 10/09/2019 10:26 AM EDT Seen for followup of her left tibial tubercle fracture. She is having no pain. She has good extension now to her left knee and flexes to 90. She is neurovascularly intact. X-rays of the left knee reveals the tibial tubercle appears to be fully healed. I think she has enough strength. She can go without the brace, work on motion and strengthening, still needs to use her espinoza walker and I would check her back in 4-6 weeks. documented in this encounter Assessments Diagnosis Closed displaced fracture of left tibial tuberosity with routine healing, subsequent encounter Chief Complaint Pre-op clearance.Pre-op clearance.* TENNILLE ORTIZ is here for a follow-up visit. * Reason for Visit: F/U High Res. CT Chest; Preop for Right TKR per Dr. Nieto. * Appointment requested by: Abelardo Abraham. * TENNILLE ORTIZ is here for a follow-up visit. * Reason for Visit: F/U High Res. CT Chest; Preop for Right TKR per Dr. Nieto. * Appointment requested by: Abelardo Abraham. * TENNILLE ORTIZ is here for a follow-up visit. * Reason for Visit: F/U High Res. CT Chest; Preop for Right TKR per Dr. Nieto. * Appointment requested by: Abelardo Abraham. * TENNILLE ORTIZ is here for a follow-up visit. * Reason for Visit: Chronic Bronchitis; F/U [facility]. * Appointment requested by: Abelardo Abraham. * TENNILLE ORTIZ is here for a follow-up visit. * Reason for Visit: Chronic Bronchitis; F/U [facility]. * Appointment requested by: Abelardo Abraham. Pre-op clearance.Pre-op clearance.3 month med check/hospital follow-up.3 month med check/hospital follow-up.[facility] - Still doesn't want to do her mammogram yetWID8-[facility] - Still doesn't want to do her mammogram yetWLocAsian health - Still doesn't want to do her mammogram yetLeft shoulder - thinks she tore a rotator cuff last March - but recently it started causing a lot of issues since she has started feeling better and moving more.Review and discussion of MRI of the left shoulder findings from 01/26/2022.* L SHOULDER F/U * PAIN - POSITIONAL * ROM 0 % * NO PHYSICAL THERAPY * INJECTION REQUEST ER follow-up - fall.ER follow-up - fall.* PATIENT PRESENTS TO OFFICE FOR : 3 MONTH FUV LEFT SHOULDER PAIN * ONSET: OVER 1 YEAR * DOI / DOS: NA * IMPROVED: NO * PAIN: /10 * PAIN MEDS TAKEN: ADVIL * ROM: LIMITED * ICE / HEAT APPLIED: NO * BRACE WORN: NO * LAST INJECTION: 12/15/21 * REFERRAL: NA * . * PATIENT PRESENTS TO OFFICE FOR : 3 MONTH FUV LEFT SHOULDER PAIN * ONSET: OVER 1 YEAR * DOI / DOS: NA * IMPROVED: NO * PAIN: 5/10 * PAIN MEDS TAKEN: ADVIL * ROM: LIMITED * ICE / HEAT APPLIED: NO * BRACE WORN: NO * LAST INJECTION: 12/15/21 * REFERRAL: NA * . Pt is being seen today for FUV regarding her left shoulder. She had injection.07/22/22Pt is being seen today for FUV regarding her left shoulder. She had injection 07/22/22 Reason for Referral Specialty Diagnoses / Procedures Referred By Contana t Referred To Contact Diagnoses Osteoporosis without current pathological fracture, unspecified osteoporosis type Arthropathy of cervical facet joint Neck pain Polymyositis (HCC) Procedures CONSULT TO SPINE SURGERY OFFICE/OUTPATIENT [facility] 60-74 MINUTES Vandana Stevens PA-C [address] [place] [id number] Referral ID Status Reason Start Date Expiration Date Visits Requested Visits Authorized [id number] Authorized PCP Requested Referral 11/08/2022 11/08/2023 1 1 Specialty Diagnoses / Procedures Referred By Juan Carlos t Referred To Contact MR IMAGING Diagnoses Osteoporosis without current pathological fracture, unspecified osteoporosis type Arthropathy of cervical facet joint Neck pain Polymyositis (HCC) Procedures MRI CERVICAL SPINE WO IVCON MRI SPINAL CANAL CERVICAL W/O CONTRAST Vandana Herring PA-C [address] [place] [id number] Mr Imaging Referral ID Status Reason Start Date Expiration Date Visits Requested Visits Authorized [id number] Authorized Auto-Generat ed Referral 11/08/2022 12/08/2023 1 1 Specialty Diagnoses / Procedures Referred By Contac t Referred To Contact MR IMAGING Diagnoses Other fracture of unspecified thoracic vertebra, initial encounter for closed fracture (HCC) Procedures MRI THORACIC SPINE WO IVCON MRI SPINAL CANAL THORACIC W/O CONTRAST Maricruz Horvath MD [address] [place] [address] Mr Imaging Referral ID Status Reason Start Date Expiration Date V isits Requested Visits Authorized [id number] Closed Auto-Generate d Referral 12/10/2022 01/09/2024 1 1 Specialty Diagnoses / Procedures Referred By Contac t Referred To Contact MR IMAGING Diagnoses Osteoporosis without current pathological fracture, unspecified osteoporosis type Arthropathy of cervical facet joint Neck pain Polymyositis (HCC) Procedures MRI CERVICAL SPINE WO IVCON MRI SPINAL CANAL CERVICAL W/O CONTRAST Vandana Herring PA-C [address] [place] [address] [place] [address] Referral ID Status Reason Start Date Expiration Date V isits Requested Visits Authorized [id number] Closed Auto-Generate d Referral 11/08/2022 12/08/2023 1 1 Specialty Diagnoses / Procedures Referred By Contac t Referred To Contact Radiology Diagnoses Encounter for screening mammogram for breast cancer Procedures BI mammo bilateral screening tomosynthesis Evaristo Du APRN-CNP [address] [facility], [place] [address] Referral ID Status Reason Start Date Expiration Date Visits Requested Visits Authorized [id number] Authorized Perform Procedure 06/06/2023 06/05/2024 1 1 Specialty Diagnoses / Procedures Referred By Contac t Referred To Contact Primary Care Diagnoses Routine general medical examination at health care facility Procedures 1 Year Follow Up In Primary Care - Wellness Exam Evaristo Du APRN-CNP [address] [facility], [place] [phone] Referral ID Status Reason Start Date Expiration Date V isits Requested Visits Authorized [id number] Authorized 06/06/2023 06/05/2024 1 1 Specialty Diagnoses / Procedures Referred By Contac t Referred To Contact Radiology Diagnoses Pain in joint of right shoulder Procedures XR shoulder right 2+ views Evan De MD [address] [facility], [place] [phone] Referral ID Status Reason Start Date Expiration Date Visits Requested Visits Authorized [id number] Authorized Perform Procedure 07/05/2023 07/04/2024 1 1 Specialty Diagnoses / Procedures Referred By Contac t Referred To Contact Diagnoses Right forearm cellulitis Geraldo Philippe, DO [address] [facility] Department of Emergency Medicine [place] [phone] Referral ID Status Reason Start Date Expiration Date V isits Requested Visits Authorized [id number] Pending Review 1 1 Specialty Diagnoses / Procedures Referred By Contac t Referred To Contact Family Medicine / Primary Care Geraldo Philippe, [address] [facility] Department Emergency Medicine [place] [phone] Referral ID Status Reason Start Date Expiration Date Visits Requested Visits Authorized [id number] Authorized Specialty Services Required 09/08/2023 09/07/2024 1 1 Specialty Diagnoses / Procedures Referred By Contac t Referred To Contact Orthopedics Diagnoses Biceps tendonitis on right Procedures CONSULT TO ORTHOPAEDIC SURGERY OFFICE/OUTPATIENT [facility] 60 MINUTES Donnie Snow MD [address] [place], [place] [phone] [place] [address] [place] [address] Referral ID Status Reason Start Date Expiration Date Visits Requested Visits Authorized [id number] Authorized PCP Requested Referral 10/17/2023 10/16/2024 1 1 Specialty Diagnoses / Procedures Referred By Contac t Referred To Contact CT IMAGING Diagnoses Dyspnea on exertion Systemic scleroderma (HCC) Procedures CT CHEST WO IVCON DIAGNOSTIC COMPUTED TOMOGRAPHY THORAX W/O CNTRST Donnie Snow MD [address] [place], [place] [phone] Ct [facility] [place] [address] Referral ID Status Reason Start Date Expiration Date Visits Requested Visits Authorized [id number] Pending Review Auto-Generat ed Referral 10/17/2023 11/15/2024 1 1 Specialty Diagnoses / Procedures Referred By Contac t Referred To Contact Dermatology Diagnoses Systemic sclerosis (HCC) Skin lesion Procedures CONSULT TO DERMATOLOGY OFFICE/OUTPATIENT [facility] 60 MINUTES Donnie Snow MD [address] [place], [place] [phone] Referral ID Status Reason Start Date Expiration Date Visits Requested Visits Authorized [id number] Authorized PCP Requested Referral 4 04/18/2025 1 1 Specialty Diagnoses / Procedures Referred By Contac t Referred To Contact XR IMAGING Diagnoses Age-related osteoporosis without current pathological fracture Procedures DXA-AXIAL SKELETON DXA BONE DENSITY STUDY / SITES AXIAL Donnie Hernandez MD [address] [place] [address] Xr Imaging [place] [address] Referral ID Status Reason Start Date Expiration Date Visits Requested Visits Authorized [id number] New Request Auto-Generat ed Referral 4 05/18/2025 1 1 Specialty Diagnoses / Procedures Referred By Contac t Referred To Contact MR IMAGING Diagnoses Glenohumeral arthritis, right Pre-op exam Procedures MRI SHOULDER WO IVCON RIGHT MRI ANY JT UPPER EXTREMITY W/O CONTRAST Heri Ramirez PA-C [address] [place] [address] Mr Imaging [place] [address] Referral ID Status Reason Start Date Expiration Date V isits Requested Visits Authorized [id number] Closed Auto-Generate d Referral 06/18/2024 07/03/2024 1 1 Medications Administered Section Inactive Administered Medications - up to 3 most recent administrations Medication Order MAR Action Action Date Dose Rate Site romosozumab-aqqg 210 mg injection (EVENITY) 210 mg, SUBCUTANEOUS, ONCE, 1 dose, On Tue01/31/23 at 1430, Allow to sit for 30 minutes to reach room temperature before injection. Total dose is 2 syringes (210 mg total) injection into abdomen, thigh, or upper arm. Given 01/31/2023 2:33 PM EDT 210 mg Arm, Right Inactive Administered Medications - up to 3 most recent administrations Medication Order MAR Action Action Date Dose Rate Site romosozumab-aqqg 210 mg injection (EVENITY) 210 mg, SUBCUTANEOUS, ONCE, 1 dose, On Tue02/28/23 at 1130, Allow to sit for 30 minutes to reach room temperature before injection. Total dose is 2 syringes (210 mg total) injection into abdomen, thigh, or upper arm. Given 02/28/2023 11:23 AM EDT 210 mg Abdomen, LLQ Inactive Administered Medications - up to 3 most recent administrations Medication Order MAR Action Action Date Dose Rate Site romosozumab-aqqg 210 mg injection (EVENITY) 210 mg, SUBCUTANEOUS, ONCE, 1 dose, On Noy 04/28/23 at 1430, Allow to sit for 30 minutes to reach room temperature before injection. Total dose is 2 syringes (210 mg total) injection into abdomen, thigh, or upper arm. Given 04/28/2023 2:30 PM EDT 210 mg Abdomen, RLQ Inactive Administered Medications - up to 3 most recent administrations Medication Order MAR Action Action Date Dose Rate Site romosozumab-aqqg 210 mg injection (EVENITY) 210 mg, SUBCUTANEOUS, ONCE, 1 dose, On 05/27/23 at 1530, Allow to sit for 30 minutes to reach room temperature before injection. Total dose is 2 syringes (210 mg total) injection into abdomen, thigh, or upper arm. Given 05/27/2023 3:26 PM EST 210 mg Arm, Left Chief Complaint and Reason for Visit Chief Complaint bodyaches, chills, Additional Source Comments INFORMATION SOURCE (unrecogn ized section and content) DATE CREATED AUTHOR 02/24/2019 [facility] DATE CREATED AUTHOR AUTHOR'S ORGANIZ ATION 08/25/2019 [facility] DATE CREATED AUTHOR AUTHOR'S ORGANIZ ATION 12/05/2020 [facility] DATE CREATED AUTHOR AUTHOR'S ORGANIZ ATION 09/22/2022 [facility] DATE CREATED AUTHOR AUTHOR'S ORGANIZ ATION 10/10/2022 [facility] DATE CREATED AUTHOR AUTHOR'S ORGANIZ ATION 10/19/2022 [facility] DATE CREATED AUTHOR AUTHOR'S ORGANIZ ATION 10/24/2022 [facility] DATE CREATED AUTHOR AUTHOR'S ORGANIZ ATION 11/14/2022 [facility] DATE CREATED AUTHOR AUTHOR'S ORGANIZ ATION 01/11/2023 [facility] DATE CREATED AUTHOR AUTHOR'S ORGANIZ ATION 09/10/2023 [facility] DATE CREATED AUTHOR AUTHOR'S ORGANIZ ATION 12/01/2023 [facility] DATE CREATED AUTHOR AUTHOR'S ORGANIZ ATION 07/20/2024 [facility] DATE CREATED AUTHOR AUTHOR'S ORGANIZ ATION 08/01/2024 [facility] DATE CREATED AUTHOR AUTHOR'S ORGANIZ ATION 10/05/2024 [facility] DATE CREATED AUTHOR AUTHOR'S ORGANIZ ATION 11/15/2024 [facility] DATE CREATED AUTHOR AUTHOR'S ORGANIZ ATION 11/20/2024 [facility] Reason for Visit (unrecogniz ed section and content) Reason Comments Injury Reason Comments Follow-up Specialty Diagnoses / Procedures Referred By Contac t Referred To Contact MR IMAGING Diagnoses Other fracture of unspecified thoracic vertebra, initial encounter for closed fracture (HCC) Procedures MRI THORACIC SPINE WO IVCON MRI SPINAL CANAL THORACIC W/O CONTRAST Maricruz Horvath MD [address] [place] [address] Mr Imaging Referral ID Status Reason Start Date Expiration Date V isits Requested Visits Authorized [id number] Closed Auto-Generate d Referral 12/10/2022 01/09/2024 1 1 Reason Comments Osteoporosis Scleroderma Since 1988 Myositis Since 1988 Reason Comments New Patient Evaluation Medication Update Reason Comments Benefits Investigation Reason Comments Imm/Inj Specialty Diagnoses / Procedures Referred By Contac t Referred To Contact Diagnoses Age-related osteoporosis without current pathological fracture Lukasz Pastrana, DO [address] [place] [address] Justin [facility] [address] [place] [address] Referral ID Status Reason Start Date Expiration Date V isits Requested Visits Authorized [id number] Authorized 01/24/2023 04/24/2023 99 99 Reason Comments Follow Up Reason Comments Radio Gen A21 Reason Comments Established Patient Medication Update Specialty Diagnoses / Procedures Referred By Contac t Referred To Contact MR IMAGING Diagnoses Osteoporosis without current pathological fracture, unspecified osteoporosis type Arthropathy of cervical facet joint Neck pain Polymyositis (HCC) Procedures MRI CERVICAL SPINE WO IVCON MRI SPINAL CANAL CERVICAL W/O CONTRAST Vandana Herring PA-C [address] [place] [address] [place] [address] Referral ID Status Reason Start Date Expiration Date V isits Requested Visits Authorized [id number] Closed Auto-Generate d Referral 11/08/2022 12/08/2023 1 1 Reason Comments Radiology NM Reason Onset Date Comments Refill Request 05/31/2023 Reason Comments Medicare Annual Wellness Visit Danial t Reason Comments Shoulder Pain Right shoulder pain Back Pain Specialty Diagnoses / Procedures Referred By Contac t Referred To Contact Radiology Diagnoses Encounter for screening mammogram for breast cancer Procedures BI mammo bilateral screening tomosynthesis Evaristo Du, DIRECTOR AND PROFESSOR-DIESEL ENGINE MECHANIC [address] [facility], [place] [address] [place] [phone] Referral ID Status Reason Start Date Expiration Date Visits Requested Visits Authorized [id number] Authorized Perform Procedure 06/06/2023 06/05/2024 1 1 Reason Comments Pain Reason Comments Follow Up Medication Update Specialty Diagnoses / Procedures Referred By Contac t Referred To Contact Diagnoses Age-related osteoporosis without current pathological fracture Procedures INJ. ROMOSOZUMAB-AQQG 1 MG Lukasz Pastrana, DO [address] [place] [address] Justin [facility] [address] [place] [address] Referral ID Status Reason Start Date Expiration Date V isits Requested Visits Authorized [id number] Authorized 07/20/2023 07/20/2024 12 12 Reason Comments Wrist Pain Pt noticed red светлана on right wrist for 9 days. Redness has grown and is more painful. Pain 10/ Reason Comments ER Follow-up Reason Comments Follow-up Patient is here for follow up after having a venous doppler of her right arm completed in the ER on the 09/08/2023. She is in a lot of pain today. Pain Patient is here for follow up after having a venous doppler of her right arm completed in the ER on the 09/08/2023. She is in a lot of pain today. Reason Comments pt c/o right wrist cellulitis Pt c/o upp er right arm pain which started today , Pt was treated by urgent care and [facility] Reason Comments Cellulitis Did not finish out t he Levaquin - was getting nauseous/weak - only took 5 days worth Specialty Diagnoses / Procedures Referred By Contac t Referred To Contact Primary Care Procedures Follow Up In Primary Care - Established Christopher Rodgers PA-C [address] [facility], [place] [address] [place] [address] Referral ID Status Reason Start Date Expiration Date V isits Requested Visits Authorized [id number] Authorized 09/20/2023 09/19/2024 1 1 Reason Onset Date Comments Refill Request 10/11/2023 Reason Comments Osteoporosis Scleroderma Reason Comments Appointment Reason Comments Established Patient 4 month follow up Reason Onset Date Comments Refill Request 11/17/[address] Specialty Diagnoses / Procedures Referred By Contac t Referred To Contact CT IMAGING Diagnoses Dyspnea on exertion Systemic scleroderma (HCC) Procedures CT CHEST WO IVCON DIAGNOSTIC COMPUTED TOMOGRAPHY THORAX W/O CNTRST Donnie Snow MD [address] [place], [place] [phone] [place] [address] Referral ID Status Reason Start Date Expiration Date V isits Requested Visits Authorized [id number] Closed Auto-Generate d Referral 11/10/2023 07/03/2024 1 1 Reason Comments New Specialty Diagnoses / Procedures Referred By Contac t Referred To Contact Orthopedics Diagnoses Biceps tendonitis on right Procedures CONSULT TO ORTHOPAEDIC SURGERY OFFICE/OUTPATIENT [facility] 60 MINUTES Donnie Snow MD [address] [place] [id number] [place] [address] [place] [address] Referral ID Status Reason Start Date Expiration Date V isits Requested Visits Authorized [id number] Closed PCP Requested Referral 10/17/2023 10/16/2024 1 1 Reason Onset Date Comments Refill Request 12/07/2023 Reason Comments Non-Chemotherapy Treatment Specialty Diagnoses / Procedures Referred By Contac t Referred To Contact Diagnoses Age-related osteoporosis without current pathological fracture Procedures INJECTION, ZOLEDRONIC ACID, 1 MG Donnie Snow MD [address] [place], [place] [phone] Justin [facility] [address] [place] [address] Referral ID Status Reason Start Date Expiration Date V isits Requested Visits Authorized [id number] Authorized 10/22/2023 07/03/2024 0 1 Reason Comments Scleroderma Myositis Osteoporosis Reason Onset Date Comments Refill Request 03/01/2024 Reason Comments New Pain Reason Comments Osteoporosis Reason Comments Spirometry Specialty Diagnoses / Procedures Referred By Contac t Referred To Contact [facility] Diagnoses ILD (interstitial lung disease) ([facility]) Procedures SPIROMETRY BASELINE ONLY SPMTRY W/VC EXPIRATORY JOSEFA W/WO MXML VOL VNTJ Murphy Bills MD [address] [place] [address] [facility] [address] [place] [address] Referral ID Status Reason Start Date Expiration Date V isits Requested Visits Authorized [id number] Closed Auto-Generate d Referral 04/27/2024 07/03/2024 1 1 Reason Comments Sleeping problems Pt is here today for some sleeping problems and some other issues. Reason Onset Date Comments Refill Request 05/30/2024 Reason Comments Depression 6 week follow up; Rachel villarreall is working well Restless Legs Is having more issue s in the afternoon btw 1-3 pm; feels ropinirole may need increased Reason Comments ER Follow-up Was in the ER on the Reason Comments Consult Specialty Diagnoses / Procedures Referred By Contac t Referred To Contact Diagnoses Glenohumeral arthritis, right Pre-op exam Procedures REFER TO [facility] - PREOPERATIVE OPTIMIZATION OFFICE/OUTPATIENT NEW HIGH MDM 60 MINUTES Heri Pappas PA-C [address] [place], [place] [phone] Referral ID Status Reason Start Date Expiration Date V isits Requested Visits Authorized [id number] Closed PCP Requested Referral 05/28/2024 05/28/2025 1 1 Specialty Diagnoses / Procedures Referred By Contac t Referred To Contact MR IMAGING Diagnoses Glenohumeral arthritis, right Pre-op exam Procedures MRI SHOULDER WO IVCON RIGHT MRI ANY JT UPPER EXTREMITY W/O CONTRAST Heri Ramirez PA-C [address] [place] [phone] Mr Imaging [place] [address] Referral ID Status Reason Start Date Expiration Date V isits Requested Visits Authorized [id number] Closed Auto-Generate d Referral 06/18/2024 07/03/2024 1 1 Reason Comments Allergic Reaction PT is here today for 1 month FUV, reports she just started medication a couple weeks ago. Reports she also had a reaction a couple days ago, stopped Carbidopa-Levodopia which is what she had the reaction to, she restarted her ropinirole. Reason Comments Pulmonary Optimization Reason Comments [facility] 1.5-2L 24h daily, stats drop when lower then 1.5L Reason Comments Post Op Reason Comments Post Op Reason Onset Date Comments Refill Request 08/21/2024 Reason Comments Hospital F/U Reason Comments Orders Oxygen Specialty Diagnoses / Procedures Referred By Contac t Referred To Contact [facility] Diagnoses Influenza due to influenza A subtype H1N1 virus with pneumonia Chronic hypoxemic respiratory failure (HCC) Procedures OXIMETRY WITH AMBULATION NONINVASIVE EAR/PULSE OXIMETRY MULTIPLE DETER Valeria Pittman PA-C [address] [facility] [place] [address] Phone: tel: fax: [facility] [address] [place] [address] Referral ID Status Reason Start Date Expiration Date V isits Requested Visits Authorized [id number] Closed Auto-Generate d Referral 09/17/2024 10/17/2025 1 1 Reason Comments Established Patient Follow Up Post Op Reason Comments Established Patient 6 month follow up as thma/ILD <item><item> Privacy Markings (unrecogniz ed section and content) Section Author: Maggie Mayfield PROHIBITION ON REDISCLOSURE OF CONFIDENTIAL INFORMATION This notice accompanies a disclosure of information concerning a client made to you with the consent of such client. Section Author: Maggie Mayfield PROHIBITION ON REDISCLOSURE OF CONFIDENTIAL INFORMATION This notice accompanies a disclosure of information concerning a client made to you with the consent of such client. Source Comments (unrecognize d section and content) In the event this informatio n is protected by the Federal Confidentiality of Alcohol and Drug Abuse Patient Records regulations: The Federal rules restrict any use of the information to criminally investigate or prosecute any alcohol or drug abuse patient.[facility] the event this information is protected by the Federal Confidentiality of Alcohol and Drug Abuse Patient Records regulations: The Federal rules restrict any use of the information to criminally investigate or prosecute any alcohol or drug abuse patient.[facility] the event this information is protected by the Federal Confidentiality of Alcohol and Drug Abuse Patient Records regulations: The Federal rules restrict any use of the information to criminally investigate or prosecute any alcohol or drug abuse patient.[facility] the event this information is protected by the Federal Confidentiality of Alcohol and Drug Abuse Patient Records regulations: The Federal rules restrict any use of the information to criminally investigate or prosecute any alcohol or drug abuse patient.[facility] the event this information is protected by the Federal Confidentiality of Alcohol and Drug Abuse Patient Records regulations: The Federal rules restrict any use of the information to criminally investigate or prosecute any alcohol or drug abuse patient.[facility]In the event this information is protected by the Federal Confidentiality of Alcohol and Drug Abuse Patient Records regulations: The Federal rules restrict any use of the information to criminally investigate or prosecute any alcohol or drug abuse patient.[facility] HospitalIn the event this information is protected by the Federal Confidentiality of Alcohol and Drug Abuse Patient Records regulations: The Federal rules restrict any use of the information to criminally investigate or prosecute any alcohol or drug abuse patient.[facility] HospitalIn the event this information is protected by the Federal Confidentiality of Alcohol and Drug Abuse Patient Records regulations: The Federal rules restrict any use of the information to criminally investigate or prosecute any alcohol or drug abuse patient.[facility] HospitalIn the event this information is protected by the Federal Confidentiality of Alcohol and Drug Abuse Patient Records regulations: The Federal rules restrict any use of the information to criminally investigate or prosecute any alcohol or drug abuse patient.[facility] HospitalIn the event this information is protected by the Federal Confidentiality of Alcohol and Drug Abuse Patient Records regulations: The Federal rules restrict any use of the information to criminally investigate or prosecute any alcohol or drug abuse patient.[facility] HospitalIn the event this information is protected by the Federal Confidentiality of Alcohol and Drug Abuse Patient Records regulations: The Federal rules restrict any use of the information to criminally investigate or prosecute any alcohol or drug abuse patient.[facility] HospitalIn the event this information is protected by the Federal Confidentiality of Alcohol and Drug Abuse Patient Records regulations: The Federal rules restrict any use of the information to criminally investigate or prosecute any alcohol or drug abuse patient.[facility] HospitalIn the event this information is protected by the Federal Confidentiality of Alcohol and Drug Abuse Patient Records regulations: The Federal rules restrict any use of the information to criminally investigate or prosecute any alcohol or drug abuse patient.[facility] HospitalIn the event this information is protected by the Federal Confidentiality of Alcohol and Drug Abuse Patient Records regulations: The Federal rules restrict any use of the information to criminally investigate or prosecute any alcohol or drug abuse patient.[facility] HospitalIn the event this information is protected by the Federal Confidentiality of Alcohol and Drug Abuse Patient Records regulations: The Federal rules restrict any use of the information to criminally investigate or prosecute any alcohol or drug abuse patient.[facility] HospitalIn the event this information is protected by the Federal Confidentiality of Alcohol and Drug Abuse Patient Records regulations: The Federal rules restrict any use of the information to criminally investigate or prosecute any alcohol or drug abuse patient.[facility] HospitalIn the event this information is protected by the Federal Confidentiality of Alcohol and Drug Abuse Patient Records regulations: The Federal rules restrict any use of the information to criminally investigate or prosecute any alcohol or drug abuse patient.[facility] HospitalIn the event this information is protected by the Federal Confidentiality of Alcohol and Drug Abuse Patient Records regulations: The Federal rules restrict any use of the information to criminally investigate or prosecute any alcohol or drug abuse patient.[facility] HospitalIn the event this information is protected by the Federal Confidentiality of Alcohol and Drug Abuse Patient Records regulations: The Federal rules restrict any use of the information to criminally investigate or prosecute any alcohol or drug abuse patient.[facility] HospitalIn the event this information is protected by the Federal Confidentiality of Alcohol and Drug Abuse Patient Records regulations: The Federal rules restrict any use of the information to criminally investigate or prosecute any alcohol or drug abuse patient.[facility] HospitalIn the event this information is protected by the Federal Confidentiality of Alcohol and Drug Abuse Patient Records regulations: The Federal rules restrict any use of the information to criminally investigate or prosecute any alcohol or drug abuse patient.[facility] HospitalIn the event this information is protected by the Federal Confidentiality of Alcohol and Drug Abuse Patient Records regulations: The Federal rules restrict any use of the information to criminally investigate or prosecute any alcohol or drug abuse patient.[facility] HospitalIn the event this information is protected by the Federal Confidentiality of Alcohol and Drug Abuse Patient Records regulations: The Federal rules restrict any use of the information to criminally investigate or prosecute any alcohol or drug abuse patient.[facility] HospitalIn the event this information is protected by the Federal Confidentiality of Alcohol and Drug Abuse Patient Records regulations: The Federal rules restrict any use of the information to criminally investigate or prosecute any alcohol or drug abuse patient.[facility] HospitalIn the event this information is protected by the Federal Confidentiality of Alcohol and Drug Abuse Patient Records regulations: The Federal rules restrict any use of the information to criminally investigate or prosecute any alcohol or drug abuse patient.[facility] HospitalIn the event this information is protected by the Federal Confidentiality of Alcohol and Drug Abuse Patient Records regulations: The Federal rules restrict any use of the information to criminally investigate or prosecute any alcohol or drug abuse patient.[facility] HospitalIn the event this information is protected by the Federal Confidentiality of Alcohol and Drug Abuse Patient Records regulations: The Federal rules restrict any use of the information to criminally investigate or prosecute any alcohol or drug abuse patient.[facility] HospitalIn the event this information is protected by the Federal Confidentiality of Alcohol and Drug Abuse Patient Records regulations: The Federal rules restrict any use of the information to criminally investigate or prosecute any alcohol or drug abuse patient.[facility] HospitalIn the event this information is protected by the Federal Confidentiality of Alcohol and Drug Abuse Patient Records regulations: The Federal rules restrict any use of the information to criminally investigate or prosecute any alcohol or drug abuse patient.[facility] HospitalIn the event this information is protected by the Federal Confidentiality of Alcohol and Drug Abuse Patient Records regulations: The Federal rules restrict any use of the information to criminally investigate or prosecute any alcohol or drug abuse patient.[facility] HospitalIn the event this information is protected by the Federal Confidentiality of Alcohol and Drug Abuse Patient Records regulations: The Federal rules restrict any use of the information to criminally investigate or prosecute any alcohol or drug abuse patient.[facility] HospitalIn the event this information is protected by the Federal Confidentiality of Alcohol and Drug Abuse Patient Records regulations: The Federal rules restrict any use of the information to criminally investigate or prosecute any alcohol or drug abuse patient.[facility] HospitalIn the event this information is protected by the Federal Confidentiality of Alcohol and Drug Abuse Patient Records regulations: The Federal rules restrict any use of the information to criminally investigate or prosecute any alcohol or drug abuse patient.[facility] HospitalIn the event this information is protected by the Federal Confidentiality of Alcohol and Drug Abuse Patient Records regulations: The Federal rules restrict any use of the information to criminally investigate or prosecute any alcohol or drug abuse patient.[facility] HospitalIn the event this information is protected by the Federal Confidentiality of Alcohol and Drug Abuse Patient Records regulations: The Federal rules restrict any use of the information to criminally investigate or prosecute any alcohol or drug abuse patient.[facility] HospitalIn the event this information is protected by the Federal Confidentiality of Alcohol and Drug Abuse Patient Records regulations: The Federal rules restrict any use of the information to criminally investigate or prosecute any alcohol or drug abuse patient.[facility] HospitalIn the event this information is protected by the Federal Confidentiality of Alcohol and Drug Abuse Patient Records regulations: The Federal rules restrict any use of the information to criminally investigate or prosecute any alcohol or drug abuse patient.[facility] HospitalIn the event this information is protected by the Federal Confidentiality of Alcohol and Drug Abuse Patient Records regulations: The Federal rules restrict any use of the information to criminally investigate or prosecute any alcohol or drug abuse patient.[facility] HospitalIn the event this information is protected by the Federal Confidentiality of Alcohol and Drug Abuse Patient Records regulations: The Federal rules restrict any use of the information to criminally investigate or prosecute any alcohol or drug abuse patient.[facility] HospitalIn the event this information is protected by the Federal Confidentiality of Alcohol and Drug Abuse Patient Records regulations: The Federal rules restrict any use of the information to criminally investigate or prosecute any alcohol or drug abuse patient.[facility] HospitalIn the event this information is protected by the Federal Confidentiality of Alcohol and Drug Abuse Patient Records regulations: The Federal rules restrict any use of the information to criminally investigate or prosecute any alcohol or drug abuse patient.[facility] HospitalIn the event this information is protected by the Federal Confidentiality of Alcohol and Drug Abuse Patient Records regulations: The Federal rules restrict any use of the information to criminally investigate or prosecute any alcohol or drug abuse patient.[facility] HospitalIn the event this information is protected by the Federal Confidentiality of Alcohol and Drug Abuse Patient Records regulations: The Federal rules restrict any use of the information to criminally investigate or prosecute any alcohol or drug abuse patient.[facility] HospitalIn the event this information is protected by the Federal Confidentiality of Alcohol and Drug Abuse Patient Records regulations: The Federal rules restrict any use of the information to criminally investigate or prosecute any alcohol or drug abuse patient.[facility] HospitalIn the event this information is protected by the Federal Confidentiality of Alcohol and Drug Abuse Patient Records regulations: The Federal rules restrict any use of the information to criminally investigate or prosecute any alcohol or drug abuse patient.[facility] HospitalIn the event this information is protected by the Federal Confidentiality of Alcohol and Drug Abuse Patient Records regulations: The Federal rules restrict any use of the information to criminally investigate or prosecute any alcohol or drug abuse patient.[facility] HospitalIn the event this information is protected by the Federal Confidentiality of Alcohol and Drug Abuse Patient Records regulations: The Federal rules restrict any use of the information to criminally investigate or prosecute any alcohol or drug abuse patient.[facility] HospitalIn the event this information is protected by the Federal Confidentiality of Alcohol and Drug Abuse Patient Records regulations: The Federal rules restrict any use of the information to criminally investigate or prosecute any alcohol or drug abuse patient.[facility] HospitalIn the event this information is protected by the Federal Confidentiality of Alcohol and Drug Abuse Patient Records regulations: The Federal rules restrict any use of the information to criminally investigate or prosecute any alcohol or drug abuse patient.[facility] HospitalIn the event this information is protected by the Federal Confidentiality of Alcohol and Drug Abuse Patient Records regulations: The Federal rules restrict any use of the information to criminally investigate or prosecute any alcohol or drug abuse patient.[facility] HospitalIn the event this information is protected by the Federal Confidentiality of Alcohol and Drug Abuse Patient Records regulations: The Federal rules restrict any use of the information to criminally investigate or prosecute any alcohol or drug abuse patient.[facility] HospitalIn the event this information is protected by the Federal Confidentiality of Alcohol and Drug Abuse Patient Records regulations: The Federal rules restrict any use of the information to criminally investigate or prosecute any alcohol or drug abuse patient.[facility] HospitalIn the event this information is protected by the Federal Confidentiality of Alcohol and Drug Abuse Patient Records regulations: The Federal rules restrict any use of the information to criminally investigate or prosecute any alcohol or drug abuse patient.[facility] HospitalIn the event this information is protected by the Federal Confidentiality of Alcohol and Drug Abuse Patient Records regulations: The Federal rules restrict any use of the information to criminally investigate or prosecute any alcohol or drug abuse patient.[facility] HospitalIn the event this information is protected by the Federal Confidentiality of Alcohol and Drug Abuse Patient Records regulations: The Federal rules restrict any use of the information to criminally investigate or prosecute any alcohol or drug abuse patient.[facility] HospitalIn the event this information is protected by the Federal Confidentiality of Alcohol and Drug Abuse Patient Records regulations: The Federal rules restrict any use of the information to criminally investigate or prosecute any alcohol or drug abuse patient.[facility] HospitalIn the event this information is protected by the Federal Confidentiality of Alcohol and Drug Abuse Patient Records regulations: The Federal rules restrict any use of the information to criminally investigate or prosecute any alcohol or drug abuse patient.[facility] HospitalIn the event this information is protected by the Federal Confidentiality of Alcohol and Drug Abuse Patient Records regulations: The Federal rules restrict any use of the information to criminally investigate or prosecute any alcohol or drug abuse patient.[facility] HospitalIn the event this information is protected by the Federal Confidentiality of Alcohol and Drug Abuse Patient Records regulations: The Federal rules restrict any use of the information to criminally investigate or prosecute any alcohol or drug abuse patient.[facility] HospitalIn the event this information is protected by the Federal Confidentiality of Alcohol and Drug Abuse Patient Records regulations: The Federal rules restrict any use of the information to criminally investigate or prosecute any alcohol or drug abuse patient.[facility] HospitalIn the event this information is protected by the Federal Confidentiality of Alcohol and Drug Abuse Patient Records regulations: The Federal rules restrict any use of the information to criminally investigate or prosecute any alcohol or drug abuse patient.[facility] HospitalIn the event this information is protected by the Federal Confidentiality of Alcohol and Drug Abuse Patient Records regulations: The Federal rules restrict any use of the information to criminally investigate or prosecute any alcohol or drug abuse patient.[facility] HospitalIn the event this information is protected by the Federal Confidentiality of Alcohol and Drug Abuse Patient Records regulations: The Federal rules restrict any use of the information to criminally investigate or prosecute any alcohol or drug abuse patient.[facility] HospitalIn the event this information is protected by the Federal Confidentiality of Alcohol and Drug Abuse Patient Records regulations: The Federal rules restrict any use of the information to criminally investigate or prosecute any alcohol or drug abuse patient.[facility] HospitalIn the event this information is protected by the Federal Confidentiality of Alcohol and Drug Abuse Patient Records regulations: The Federal rules restrict any use of the information to criminally investigate or prosecute any alcohol or drug abuse patient.[facility] HospitalIn the event this information is protected by the Federal Confidentiality of Alcohol and Drug Abuse Patient Records regulations: The Federal rules restrict any use of the information to criminally investigate or prosecute any alcohol or drug abuse patient.[facility] HospitalIn the event this information is protected by the Federal Confidentiality of Alcohol and Drug Abuse Patient Records regulations: The Federal rules restrict any use of the information to criminally investigate or prosecute any alcohol or drug abuse patient.[facility] HospitalIn the event this information is protected by the Federal Confidentiality of Alcohol and Drug Abuse Patient Records regulations: The Federal rules restrict any use of the information to criminally investigate or prosecute any alcohol or drug abuse patient.[facility] Care Teams (unrecognized sec tion and content) Roof Bolter Relationship Specialty Start Date End Date Yeimy Abraham PA-C [address] [place], [place] [id number] PCP - General General Surgery 10/09/18 Roof Bolter Relationship Specialty Start Date End Date Yeimy Abraham PA-C [address] [place], [place] [id number] PCP - General General Surgery 10/09/18 Roof Bolter Relationship Specialty Start Date End Date Yeimy Abraham PA-C [address] [place], [place] [id number] PCP - General General Surgery 10/09/18 Roof Bolter Relationship Specialty Start Date End Date Evaristo Du CNP [address] [place] [address] PCP - General Family Medicine 01/13/23 Roof Bolter Relationship Specialty Start Date End Date Evaristo Du CNP [address] [place] [address] PCP - General Family Medicine 01/13/23 Roof Bolter Relationship Specialty Start Date End Date Evaristo Du CNP [address] [place] [address] PCP - General Family Medicine 01/13/23 Roof Bolter Relationship Specialty Start Date End Date Evaristo Du CNP [address] [place] [address] PCP - General Family Medicine 01/13/23 Roof Bolter Relationship Specialty Start Date End Date Evaristo Du CNP [address] [place] [address] PCP - General Family Medicine 01/13/23 Roof Bolter Relationship Specialty Start Date End Date Evaristo Du CNP [address] [place] [address] PCP - General Family Medicine 01/13/23 Team Status: Active Member Role Status Dates Sharon Abraham ETL LEAD, ETL LEAD-C Family Provider Active EVARISTODIOGO DU Primary Care Provider Active Team Status: Inactive Member Role Status Dates Dr. Lukasz Munoz MD Emergency Provider Active ANA LAURA GROSS Primary Care Provider Active Roof Bolter Relationship Specialty Start Date End Date Ana LauraEvaristo CNP [address] [place] [address] PCP - General Family Medicine 01/13/23 Roof Bolter Relationship Specialty Start Date End Date McintoshEvaristo CNP [address] [place] [address] PCP - General Family Medicine 01/13/23 Roof Bolter Relationship Specialty Start Date End Date Yeimy Abraham PA-C [address] [place], [place] [id number] PCP - General General Surgery 10/09/18 01/12/23 Roof Bolter Relationship Specialty Start Date End Date Yeimy Abraham PA-C [address] [place], [place] [id number] PCP - General General Surgery 10/09/18 01/12/23 Roof Bolter Relationship Specialty Start Date End Date Evaristo Du CNP [address] [place] [address] PCP - General Family Medicine 01/13/23 Roof Bolter Relationship Specialty Start Date End Date Evaristo Du CNP [address] [place] [address] PCP - General Family Medicine 01/13/23 Roof Bolter Relationship Specialty Start Date End Date Ana Laura, Evaristo L, [employer] MECH[employer]IC [address] [place] [id number] PCP - General Family Medicine 01/13/23 Roof Bolter Relationship Specialty Start Date End Date vEan De MD [address] [facility], [place] [address] [place] [phone] PCP - General Family Medicine 06/06/23 Roof Bolter Relationship Specialty Start Date End Date Evaristo Du DIESEL ENGINE MECHANIC [facility] [address] [place] [phone] PCP - General Family Medicine 01/13/23 Roof Bolter Relationship Specialty Start Date End Date Evan De MD [address] [facility], [facility] [address] [place] [address] PCP - General Family Medicine 06/06/23 Roof Bolter Relationship Specialty Start Date End Date Evan De MD [address] [facility], [facility] [address] [place] [phone] PCP - General Family Medicine 06/06/23 Lacey Bull DO [address] [place] [address] Medical Office [place] [phone] PCP - [employer] PCP 07/04/23 Roof Bolter Relationship Specialty Start Date End Date Evan De MD [address] [place] [phone] PCP - General Family Medicine 07/29/23 Roof Bolter Relationship Specialty Start Date End Date Evan De MD [address] [place] [phone] PCP - General Family Medicine 07/29/23 Roof Bolter Relationship Specialty Start Date End Date Evan De MD [address] [facility], [place] [address] [place] [phone] PCP - General Family Medicine 06/06/23 Lacey Bull DO [address] [facility] Medical Office [place] [phone] PCP - [employer] PCP 07/04/23 Roof Bolter Relationship Specialty Start Date End Date Evan De MD [address] [facility], [place] [address] [place] [phone] PCP - General Family Medicine 06/06/23 Evan De MD [address] [facility], [place] [address] [place] [phone] PCP - [employer] PCP 08/04/23 Roof Bolter Relationship Specialty Start Date End Date Evan De MD [address] [facility], [place] [address] [place] [phone] PCP - General Family Medicine 06/06/23 Evan De MD [address] [facility], [place] [address] [place] [phone] PCP - [employer] PCP 08/04/23 Roof Bolter Relationship Specialty Start Date End Date Evan De MD [address] [facility], [place] [address] [place] [phone] PCP - General Family Medicine 06/06/23 Evan De MD [address] [facility] [place] [address] [place] [address] PCP - [employer] PCP 08/04/23 Roof Bolter Relationship Specialty Start Date End Date Evan De MD [address] [place] [address] PCP - General Family Medicine 07/29/23 Roof Bolter Relationship Specialty Start Date End Date Evan De MD [address] [facility] [place] [address] [place] [address] PCP - General Family Medicine 06/06/23 Evan De MD [address] [facility] [place] [address] [place] [address] PCP - [employer] PCP 08/04/23 Roof Bolter Relationship Specialty Start Date End Date Evan De MD [address] [place] [address] PCP - General Family Medicine 07/29/23 Roof Bolter Relationship Specialty Start Date End Date Evan De MD [address] [place] [address] PCP - General Family Medicine 07/29/23 Roof Bolter Relationship Specialty Start Date End Date Evan De MD [address] [place] [address] PCP - General Family Medicine 07/29/23 Roof Bolter Relationship Specialty Start Date End Date Evan De MD [address] [place] [address] PCP - General Family Medicine 07/29/23 Roof Bolter Relationship Specialty Start Date End Date Evan De MD [address] [facility], [address] [place] [address] PCP - General Family Medicine 06/06/23 Evan De MD [address] [facility], [facility] [address] [place] [address] PCP - [employer] PCP 08/04/23 Roof Bolter Relationship Specialty Start Date End Date Evan De MD [address] [place] [address] PCP - General Family Medicine 07/29/23 Roof Bolter Relationship Specialty Start Date End Date Evan De MD [address] [place] [address] PCP - General Family Medicine 07/29/23 Roof Bolter Relationship Specialty Start Date End Date Evan De MD [address] [place] [address] PCP - General Family Medicine 07/29/23 Roof Bolter Relationship Specialty Start Date End Date Evan De MD [address] [place] [address] PCP - General Family Medicine 07/29/23 Roof Bolter Relationship Specialty Start Date End Date Evan De MD [address] [place] [address] PCP - General Family Medicine 07/29/23 Roof Bolter Relationship Specialty Start Date End Date Evan De MD [address] [place] [address] PCP - General Family Medicine 07/29/23 Roof Bolter Relationship Specialty Start Date End Date Evan De MD [address] [place] [phone] PCP - General Family Medicine 07/29/23 Roof Bolter Relationship Specialty Start Date End Date Evan De MD [address] [place] [phone] PCP - General Family Medicine 07/29/23 Roof Bolter Relationship Specialty Start Date End Date Evan De MD [address] [place] [phone] PCP - General Family Medicine 07/29/23 Roof Bolter Relationship Specialty Start Date End Date Evan De MD [address] [facility] [place] PCP - General Family Medicine 07/29/23 Roof Bolter Relationship Specialty Start Date End Date Evan De MD [address] [place] [address] PCP - General Family Medicine 07/29/23 Roof Bolter Relationship Specialty Start Date End Date Evan De MD [address] [facility], [address] [place] [address] PCP - General Family Medicine 06/06/23 Evan De MD [address] [facility], [address] [place] [address] PCP - [employer] PCP 08/04/23 Roof Bolter Relationship Specialty Start Date End Date Evan eD MD [address] [place] [id number] PCP - General Family Medicine 07/29/23 Roof Bolter Relationship Specialty Start Date End Date Evan De MD [address] [place] [phone] PCP - General Family Medicine 07/29/23 Roof Bolter Relationship Specialty Start Date End Date Evan De MD [address] [facility], [address] [place], [facility] PCP - General Family Medicine 06/06/23 Evan De MD [address] [facility] [address] [place], [facility] PCP - [employer] PCP 08/04/23 Roof Bolter Relationship Specialty Start Date End Date Evaristo Du, DIRECTOR AND PROFESSOR-[employer]EL ENGINE MECH[employer]IC [address] [facility] [address] [place] [address] PCP - General 12/08/21 Roof Bolter Relationship Specialty Start Date End Date Evan De MD [address] [place] [address] PCP - General Family Medicine 07/29/23 Roof Bolter Relationship Specialty Start Date End Date Evan De MD [address] [place] [address] PCP - General Family Medicine 07/29/23 Roof Bolter Relationship Specialty Start Date End Date Evan De MD [address] [facility] [address] [place] [address] PCP - General Family Medicine 06/06/23 Evan De MD [address] [facility] [address] [place] [address] PCP - [employer] PCP 08/04/23 Roof Bolter Relationship Specialty Start Date End Date Evan De MD [address] [place] [address] PCP - General Family Medicine 07/29/23 Roof Bolter Relationship Specialty Start Date End Date Evan De MD [address] [place] [address] PCP - General Family Medicine 07/29/23 Roof Bolter Relationship Specialty Start Date End Date Evan De MD [address] [place] [address] PCP - General Family Medicine 07/29/23 Roof Bolter Relationship Specialty Start Date End Date Evan De MD [address] [place] [address] PCP - General Family Medicine 07/29/23 Roof Bolter Relationship Specialty Start Date End Date Evan De MD [address] [place] [address] PCP - General Family Medicine 07/29/23 Roof Bolter Relationship Specialty Start Date End Date Evan De MD [address] [place] [address] PCP - General Family Medicine 07/29/23 Roof Bolter Relationship Specialty Start Date End Date Evan De MD [address] [place] [address] PCP - General Family Medicine 07/29/23 Roof Bolter Relationship Specialty Start Date End Date Evan De MD [address] [place] [address] PCP - General Family Medicine 07/29/23 Roof Bolter Relationship Specialty Start Date End Date Evan De MD [address] [place] [address] PCP - General Family Medicine 07/29/23 Roof Bolter Relationship Specialty Start Date End Date Evan De MD [address] [place] [address] PCP - General Family Medicine 07/29/23 Roof Bolter Relationship Specialty Start Date End Date Evan De MD [address] [place] [address] PCP - General Family Medicine 07/29/23 Roof Bolter Relationship Specialty Start Date End Date Evan De MD [address] [place] [address] PCP - General Family Medicine 07/29/23 Roof Bolter Relationship Specialty Start Date End Date Evan De MD [address] [place] [address] PCP - General Family Medicine 07/29/23 Roof Bolter Relationship Specialty Start Date End Date Evan De MD [address] [place] [address] PCP - General Family Medicine 07/29/23 Goals (unrecognized section and content) Goals may be documented in a n alternate section Inactive Administered Medications - up to 3 most recent administrations Administered Medications (un recognized section and content) Medication Order MAR Action Action Date Dose Rate Site romosozumab-aqqg 210 mg injection (EVENITY) 210 mg, SUBCUTANEOUS, ONCE, 1 dose, On Tue08/26/23 at 1100, Allow to sit for 30 minutes to reach room temperature before injection. Total dose is 2 syringes (210 mg total) injection into abdomen, thigh, or upper arm. Given 08/26/2023 11:08 AM EST 210 mg Abdomen, RLQ Inactive Administered Medications - up to 3 most recent administrations Medication Order MAR Action Action Date Dose Rate Site romosozumab-aqqg 210 mg injection (EVENITY) 210 mg, SUBCUTANEOUS, ONCE, 1 dose, On Tue09/23/23 at 1130, Allow to sit for 30 minutes to reach room temperature before injection. Total dose is 2 syringes (210 mg total) injection into abdomen, thigh, or upper arm. Given 09/23/2023 11:24 AM EDT 210 mg Abdomen, LLQ Inactive Administered Medications - up to 3 most recent administrations Medication Order MAR Action Action Date Dose Rate Site romosozumab-aqqg 210 mg injection (EVENITY) 210 mg, SUBCUTANEOUS, ONCE, 1 dose, On Tue10/21/23 at 1100, Allow to sit for 30 minutes to reach room temperature before injection. Total dose is 2 syringes (210 mg total) injection into abdomen, thigh, or upper arm. Given 10/21/2023 10:55 AM EDT 210 mg Arm, Left FOR RECORDS PERTAINING TO PATIENTS WHO ARE OR HAVE BEEN ENROLLED IN A CHEMICAL DEPENDENCY/SUBSTANCEABUSE PROGRAM, SOME INFORMATION MAY BE OMITTED. This clinical summary was aggregated from multiple sources. Caution should be exercised in using it in the provision of clinical care. This summary normalizes information from multiple sources, and as a consequence, information in this document may materially change the coding, format and clinical context of patient data. In addition, data may be omitted in some cases. CLINICAL DECISIONS SHOULD BE BASED ON THE PRIMARY CLINICAL RECORDS. [facility] [employer] [facility]. provides no warranty or guarantee of the accuracy or completeness of information in this document.
--- NOTE | 2024-12-16 18:50 | CT_ITS ---
PROCEDURE: CHEST WITHOUT CONTRAST 12/16/2024 REASON FOR EXAM: ANTERIOR (L) RIB TRAUMA TECHNIQUE: Chest CT without contrast. Coronal and Sagittal reconstruction series were provided. One or more dose reduction techniques were used (e.g., Automated exposure control, adjustment of the mA and/or kV according to patient size, use of iterative reconstruction technique COMPARISON: 08/21/2024 FINDINGS: Heart size is within normal limits. Mild LAD coronary artery calcifications. No significant pericardial effusion. Normal caliber thoracic aorta and pulmonary arteries. No bulky adenopathy. A couple of small nonobstructing left renal calculi. Fecal retention. Superficial soft tissues are without acute abnormality. Generalized muscle atrophy. Central airways are patent. Severe left lower lobe and mild right lower lobe bronchiectasis with honeycombing. No focal consolidation, pleural effusion or pneumothorax. No pulmonary mass. No definite acute displaced rib fracture. Chronic bilateral rib fractures noted. Severe chronic compression fracture deformity of T6. Severe left glenohumeral joint osteoarthritis. 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 CT/Chest without Contrast IMPRESSION: 1. No acute process. 2. Chronic anterior bilateral rib fractures and chronic compression deformity o f T6. 3. Bilateral lower lobe bronchiectasis and honeycombing. No focal infiltrates. 4. Coronary artery disease. 5. Left nephrolithiasis. Reading Location: [facility]
[2024-12-16 19:20] VITALS: O2SAT 100
[2024-12-16 20:12] VITALS: PULSE 99; RESP 20; O2SAT 97
[2024-12-16 20:30] VITALS: PULSE 99; RESP 21; O2SAT 98
== END 2024-12-16 20:32 | disposition home or self-care (01) ==
PROVIDERS: Emergency Provider Emergency Medicine; PCP Family Medicine; Visit Provider Emergency Medicine
DX: R07.89 Other chest pain (principal)
CPT/HCPCS: 71250; 93005; 99283

== ENCOUNTER 2025-06-20 14:23 | Emergency (ER) | payer MEDICARE, SELFPAY ==
[2025-06-20 14:25] VITALS: BP 107/59; PULSE 75; RESP 18; TEMP 36.6; O2SAT 95; BMI 15.3
[2025-06-20 14:32] VITALS: BP 107/59; PULSE 75; RESP 18; TEMP 36.6; O2SAT 95
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
== END 2025-06-20 15:34 | disposition home or self-care (01) ==
PROVIDERS: Emergency Provider Emergency Medicine; PCP Family Medicine; Visit Provider Emergency Medicine
DX: K04.7 Periapical abscess without sinus (principal); E78.00 Pure hypercholesterolemia, unspecified; Z90.710 Acquired absence of both cervix and uterus; K05.10 Chronic gingivitis, plaque induced; E66.9 Obesity, unspecified; Z98.51 Tubal ligation status
CPT/HCPCS: 99282